=== PATIENT | female | born 1970 | race Caucasian/White ===

== ENCOUNTER 2022-12-18 12:06 | Outpatient (OUT) | payer BC, SELFPAY ==
[2022-12-18 13:11] LABS: Alanine Aminotransferase 47 U/L (14-59); Alkaline Phosphatase 101 U/L (46-116); Aspartate Amino Transferase 28 U/L (15-37)
== END 2022-12-18 12:07 | disposition home or self-care (01) ==
LOC: LAB 12:11
PROVIDERS: PCP Nurse Practitioner; Visit Provider Podiatrist Foot & Ankle Surgery
DX: B35.1 Tinea unguium (principal)
CPT/HCPCS: 36415; 84075; 84450; 84460

== ENCOUNTER 2022-12-26 10:55 | Outpatient (OUT) | payer BC, SELFPAY ==
--- NOTE | 2022-12-26 | XR_ITS ---
[address] [address] Patient Name: MICHELLE BADILLO MRN: [id number] date: 1970 Sex: F Assigned Patient Location: [facility] Current Patient Location: Accession/Order Number: [id number] Exam Date: 12/26/2022 11:00 Report Date: 12/28/2022 06:45 At the request of: ANAND KRUEGER Procedure: XR abdomen 1V EXAMINATION: XR abdomen 1V HISTORY: KIDNEY STONE COMPARISON: 07/29/2022 FINDINGS: KIDNEY/URETER - RIGHT: No visible renal or ureteral calcifications. KIDNEY/URETER - LEFT: No visible renal or ureteral calcifications. PELVIS: No visible ureteral calcifications. Any visible calcifications favor phleboliths. BOWEL: No abnormal dilation or deviation. Residual BONES: No acute abnormality. OTHER: Negative. No abnormal gaseous collections. XR/XR abdomen 1V IMPRESSION: No urinary tract calculi identified Electronically authenticated by: LUIS M SOLOMON Date: 12/28/2022 06:45
== END 2022-12-26 10:56 | disposition home or self-care (01) ==
PROVIDERS: PCP Nurse Practitioner; Visit Provider Urology
DX: N20.0 Calculus of kidney (principal)
CPT/HCPCS: 74018

== ENCOUNTER 2023-02-02 19:59 | Outpatient (OUT) | payer BC, SELFPAY | END 2023-02-02 20:00 | disposition home or self-care (01) | LOC: SLEEP 20:00 | PROVIDERS: PCP Nurse Practitioner Adult Health; Visit Provider Nurse Practitioner Adult Health | DX: G47.33 Obstructive sleep apnea (adult) (pediatric) (principal) | CPT/HCPCS: 95810 ==

== ENCOUNTER 2023-06-29 17:40 | Observation (INO) | payer BC, SELFPAY ==
[2023-06-29] VITALS (41 sets, daily range): BP systolic 111–162; BP diastolic 70–108; PULSE 67–93; TEMP 36.3–36.8; O2SAT 95–100; BMI 32.3; BMI 35.1
--- NOTE | 2023-06-29 17:55 | XR_ITS ---
The [address] [address] Patient Name: MICHELLE BADILLO MRN: [id number] date: 1970 Sex: F Assigned Patient Location: ER Current Patient Location: ER Accession/Order Number: [id number] Exam Date: 06/29/2023 18:27 Report Date: 06/29/2023 19:14 At the request of: DURAN MORALES Procedure: XR chest 1V EXAM: XR chest 1V at 1822 hours HISTORY: Chest pain COMPARISON: 10/28/2020 TECHNIQUE: AP upright portable chest x-ray FINDINGS: The heart is not enlarged and the vasculature is not distended. No acute infiltrate, effusion or pneumothorax is identified. The osseous structures are grossly intact. XR/XR chest 1V IMPRESSION: No acute infiltrate or evidence of cardiac decompensation. The overall appearance of the chest is essentially unchanged. Electronically authenticated by: CHAVA GARCIA Date: 06/29/2023 19:14
--- NOTE | 2023-06-29 17:55 | ECG_ITS ---
The [facility] Test Date: 2023-06-29 Pat Name: MICHELLE BADILLO Department: Room: - Gender: Female [employer]: : 1970 Requested By: PRICILLA DALEY Order Number: [id number] Reading MD: FREDDY RADFORD Measurements Intervals [place] Rate: 81 P: 38 [place]: 152 QRS: 24 QRSD: 76 T: 19 QT: 358 QTc: 395 Interpretive Statements 1100 Sinus rhythm 8102 Low QRS voltage in chest leads 9120 atypical ECG Compared to ECG 06/29/2022 13:32:25 No significant changes Electronically Signed On 06-29-2023 23:14:03 EDT by FREDDY RADFORD
--- NOTE | 2023-06-29 18:06 | ED.CHESTPAI1 ---
HPI - Chest Pain General Chief Complaint: Chest Pain Stated Complaint: chest pain Time Seen by Provider: 06/29/23 17:55 Source: patient Mode of arrival: walk-in Limitations: no limitations History of Present Illness HPI narrative: 53-year-old female presents for chest pain. She had an episode 3 days ago that lasted for about 15 minutes and it was in the middle part of her sternum. It went away and did not recurrent until today about 3 PM. The patient states it lasted for about 15 minutes and it was again in the middle part of her sternal area that went straight through to her back. It seems to have resolved. She was worried about heart issues. Her father had a heart attack in his 50s. Related Data Home Medications ?Medication ?Instructions ?Recorded ?Confirmed pantoprazole 20 mg tablet,delayed 20 mg PO Q12H 06/29/23 06/29/23 release zonisamide 25 mg capsule 25 mg PO Q12H 06/29/23 06/29/23 Allergies Allergy/AdvReac Type Severity Reaction Status Date / Time Penicillins AdvReac Severe Verified 06/29/23 17:54 Review of Systems ROS Narrative A ten point review of systems is negative except as noted above. Exam Narrative Exam Narrative: Nurses note and vital signs reviewed and patient is not hypoxic. General: The patient appears well and in no apparent distress. Patient is resting comfortably on cart. Skin: Warm, dry, no pallor noted. There is no rash noted. Head: Normocephalic, atraumatic Eye: Normal conjunctiva, no drainage Ears, Nose, Mouth, and Throat: oral mucosa is moist. Nares patent. Cardiovascular: Regular Rate and Rhythm Respiratory: Patient is in no distress, no accessory muscle use, lungs are clear to auscultation, no wheezing, rales or rhonchi Back: non-tender GI: Soft and nontender Musculoskeletal: The patient has no evidence of calf tenderness, no pitting edema, symmetrical pulses noted bilaterally Neurological: A&O, normal speech Psychiatric: Cooperative Constitutional Vital Signs, click to edit/add: Last Vital Signs Temp 98.2 F 06/29/23 17:49 Pulse 93 H 06/29/23 17:49 Resp 18 06/29/23 17:49 BP 150/108 H 06/29/23 17:49 Pulse Ox 100 06/29/23 17:49 O2 Del Method Room Air 06/29/23 17:49 Course Vital Signs Vital signs: Vital Signs Temperature 98.2 F 06/29/23 17:49 Pulse Rate 93 H 06/29/23 17:49 Respiratory Rate 18 06/29/23 17:49 Blood Pressure 150/108 H 06/29/23 17:49 Pulse Oximetry 100 06/29/23 17:49 Oxygen Delivery Method Room Air 06/29/23 17:49 Temperature 98.2 F 06/29/23 17:49 Pulse Rate 93 H 06/29/23 17:49 Respiratory Rate 18 06/29/23 17:49 Blood Pressure 150/108 H 06/29/23 17:49 Pulse Oximetry 100 06/29/23 17:49 Oxygen Delivery Method Room Air 06/29/23 17:49 MDM - Chest Pain MDM Narrative Medical decision making narrative: Tests are ordered and the patient is signed out to Dr. Velasquez. Differential Diagnosis Differential diagnosis: Likely atypical chest pain, st elevation myocardial infarction, costochondritis and chest pain ECG Data Attestation: I personally reviewed and interpreted this ECG as follows: (EKG on my interpretation shows normal sinus rhythm without acute change and a rate of 81.) Discharge Plan Discharge Patient Disposition: Still a Patient
[2023-06-29] MEDS: ASPIRIN 325 MG TABLET PO (18:31)
--- NOTE | 2023-06-29 18:31 | PC.NURSE ---
Pt explains that the last time she had this chest pain she ended up having a blockage in her common bile duct in 2018 and had gotten an ERCP. She has since had her gall bladder removed as well.
[2023-06-29 18:32] LABS: Basophils Percent Auto 0.3 % (0.2-2.0); Eosinophils Absolute Auto 0.2 10^3/uL (0.0-0.7); Eosinophils Percent Auto 2.6 % (0.9-7.0); Hematocrit 40.4 % (36.0-48.0); Hemoglobin 13.3 g/dL (12.0-16.0); Immature Granulocytes Abs Auto 0.01 10^3/uL (0.00-0.03); Immature Granulocytes Pct Auto 0.1 % (0.0-0.5); Lymphocytes Absolute Auto 2.2 10^3/uL (1.2-3.8); Lymphocytes Percent Auto 32.4 % (20.5-60.0); Mean Corpuscular HGB Conc 32.9 g/dL (29.9-35.2); Mean Corpuscular Hemoglobin 28.3 pg (26.7-34.0); Mean Platelet Volume 9.4 fL (9.5-13.5); Monocytes Absolute Auto 0.4 10^3/uL (0.3-0.8); Monocytes Percent Auto 5.2 % (1.7-12.0); Neutrophils Absolute Auto 4.1 10^3/uL (1.4-6.5); Neutrophils Percent Auto 59.4 % (43.0-75.0); Platelet Count 283 10^3/uL (150-450); Red Cell Distribution Width 12.6 % (11.0-15.0); White Blood Count 6.9 10^3/uL (4.0-11.0)
[2023-06-29 18:42] LABS: INR 0.94
[2023-06-29 18:44] LABS: Alanine Aminotransferase 40 U/L (14-59); Albumin Level 3.7 g/dL (3.4-5.0); Alkaline Phosphatase 109 U/L (46-116); Anion Gap 15.8; Aspartate Amino Transferase 21 U/L (15-37); BUN Creatinine Ratio 15.4; Bilirubin Total 0.3 mg/dL (0.2-1.0); Calcium 9.4 mg/dL (8.5-10.1); Chloride 104 mmol/L (98-107); Estimated GFR (African America 59 (>=60); Estimated GFR (Non-African Ame 49 (>=60); Globulin 3.8 g/dL; Glucose 95 mg/dL (74-106); Potassium 3.8 mmol/L (3.5-5.1); Sodium 141 mmol/L (136-145); Total Protein 7.5 g/dL (6.4-8.2)
[2023-06-29 18:49] LABS: Lactate/Lactic Acid 0.9 mmol/L (0.4-2.0)
[2023-06-29 19:23] LABS: Bilirubin Direct 0.1 mg/dL (0.0-0.2); Bilirubin Total 0.3 mg/dL (0.2-1.0)
[2023-06-29 19:24] LABS: Alanine Aminotransferase 38 U/L (14-59); Albumin Globulin Ratio 1.1; Albumin Level 3.8 g/dL (3.4-5.0); Alkaline Phosphatase 111 U/L (46-116); Amylase 72 U/L (25-115); Aspartate Amino Transferase 20 U/L (15-37); Globulin 3.6 g/dL; Total Protein 7.4 g/dL (6.4-8.2)
[2023-06-29 21:14] LABS: Troponin I High Sensitivity 4.2 pg/mL (4.0-51.3)
--- OUTSIDE RECORDS SUMMARY | 2023-06-29 23:29 | XMS_ITS | CCD ---
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 Name Role Phone Larry DO Luis M Montano Attending Provider [phone] NON STAFF Primary Care Provider Unavaildina e NON STAFF Primary Care Provider Unavaildina e TISHA Pace- Rose Attending Provider MD Anand Lopez Attending Provider AICHHOLZ, KAMILLA J Primary Care Physician PATI ., DR MICHEL Attending Unavailable LOPEZ ., DR MICHEL Consulting Unavailable AICHHOLZ, ELECTRICAL SIGN WIRER HELPER KAMILLA Primary Care Unavailable LOPEZ ., DR MICHEL Admitting Unavailable GALVEZ, IZZY Consulting Unavailable LOPEZ ., DR MICHEL Consulting Unavailable AICHHOLZ, ELECTRICAL SIGN WIRER HELPER KAMILLA Primary Care Unavailable LOPEZ ., DR MICHEL Admitting Unavailable LOPEZ ., DR MICHEL Attending Unavailable ZIEBER, DR JERICA Fonseca Consulting Unavailable VICTORINO, KYLE Consulting Unavailable MARY ANN II, GEOVANNI Consulting Unavailable LOPEZ ., DR MICHEL Attending Unavailable AICHHOLZ, ELECTRICAL SIGN WIRER HELPER KAMLILA Primary Care Unavailable LOPEZ ., DR MICHEL Admitting Unavailable AICHHOLZ, ELECTRICAL SIGN WIRER HELPER KAMILLA Admitting Unavailable AICHHOLZ, ELECTRICAL SIGN WIRER HELPER KAMILLA Attending Unavailable AICHHOLZ, ELECTRICAL SIGN WIRER HELPER KAMILLA Consulting Unavailable AICHHOLZ, ELECTRICAL SIGN WIRER HELPER KAMILLA Primary Care Unavailable ZIEBER, DR JERICA Fonseca Consulting Unavailable AICHHOLZ, ELECTRICAL SIGN WIRER HELPER KAMILLA Admitting Unavailable AICHHOLZ, ELECTRICAL SIGN WIRER HELPER KAMILLA Attending Unavailable AICHHOLZ, ELECTRICAL SIGN WIRER HELPER KAMILLA Consulting Unavailable AICHHOLZ, ELECTRICAL SIGN WIRER HELPER KAMILLA Primary Care Unavailable FAWWAD, STEELE H Admitting Unavailable FAWWAD, STEELE H Attending Unavailable FAWWAD, STEELE H Consulting Unavailable AICHHOLZ, ELECTRICAL SIGN WIRER HELPER KAMILLA Primary Care Unavailable LOPEZ ., DR MICHEL Attending Unavailable LOPEZ ., DR MICHEL Consulting Unavailable AICHHOLZ, ELECTRICAL SIGN WIRER HELPER KAMILLA Primary Care Unavailable LOPEZ ., DR MICHEL Admitting Unavailable ZIEBER, DR JERICA Fonseca Consulting Unavailable AICHHOLZ, ELECTRICAL SIGN WIRER HELPER KAMILLA Primary Care Unavailable AICHHOLZ, ELECTRICAL SIGN WIRER HELPER KAMILLA Admitting Unavailable AICHHOLZ, ELECTRICAL SIGN WIRER HELPER KAMILLA Attending Unavailable AICHHOLZ, ELECTRICAL SIGN WIRER HELPER KAMILLA Consulting Unavailable LOPEZ ., DR MICHEL Admitting Unavailable LOPEZ ., DR MICHEL Consulting Unavailable AICHHOLZ, ELECTRICAL SIGN WIRER HELPER KAMILLA Primary Care Unavailable LOPEZ ., DR MICHEL Attending Unavailable WEST, DR LUIS M Bustos Consulting Unavailable AICHHOLZ, ELECTRICAL SIGN WIRER HELPER KAMILLA Primary Care Unavailable WEST, DR LUIS M Bustos Consulting Unavailable AICHHOLZ, ELECTRICAL SIGN WIRER HELPER KAMILLA Admitting Unavailable AICHHOLZ, ELECTRICAL SIGN WIRER HELPER KAMILLA Attending Unavailable AICHHOLZ, ELECTRICAL SIGN WIRER HELPER KAMILLA Consulting Unavailable LOPEZ ., DR MICHEL Consulting Unavailable AICHHOLZ, ELECTRICAL SIGN WIRER HELPER KAMILLA Primary Care Unavailable LOPEZ ., DR MICHEL Admitting Unavailable LOPEZ ., DR MICHEL Attending Unavailable NO FAMILY, PHYSICIAN Primary Care Provider Unava ilable MD Rishi Imshawn Attending Provider Windnagel, Rose Admitting Unavailable Windnagel, Rose Attending Unavailable NON STAFF Primary Care Unavailable Anand Lopez Admitting Unavailable Anand Lopez Attending Unavailable NO FAMILY, PHYSICIAN Primary Care Unavailable Asaad, Imad Attending Unavailable NO FAMILY, PHYSICIAN Primary Care Unavailable Asaad, Imad Admitting Unavailable Asaad, Imad Attending Unavailable Aichholz, Kamilla J Primary Care Unavailable Asaad, Imad Admitting Unavailable Aichholz, Kamilla J Primary Care Provider Anand LOPEZ Attending Unavailable Anand LOPEZ Attending Unavailable Anand LOPEZ Attending Unavailable Windnagel, Rose Admitting Unavailable Windnagel, Rose Attending Unavailable Windnagel, Rose Referring Unavailable LOPEZAnand R Attending Unavailable Anand LOPEZ R Attending Unavailable ISABELLE BARRIOS Referring Unavailable SOPHIEISABELLE Primary Care Unavailable Aichholz PRODUCTION SUPPORT CONSULTANT, Kamilla Unavailable Nishant Aguilar MD Primary Care Provider AICHHOLZ, KAMILLA Attending Unavailable ZONIA PAK Attending Unavailable AICHHOLZ, KAMILLA Attending Unavailable James FU, Kristine Patten Attending Phyllis yanet Ramirez PA-C, Kristine Patten Attending [facility] Allergies Allergy Classification Reported Allergen(s) Allergy Type Date of Onset Reaction(s) Facility (11 sources) Penicillins; Translations: [Penicillins] Allergy to substance 07-14-2017 [facility] (5 sources) Penicillin; Translations: [penicillin] Drug Allergy Unknown [facility] Medications Current Medications Medication Drug Class(es) Dates Sig (Normalized) Sig (Original) Acidophilus Probiotic Blend (3 sources) Start: 06-22-2022 Acidophilus Probiotic Blend Oral, Daily, Refill(s) 0 Start Date: 06/22/22 Status: Ordered amitriptyline hydrochloride 25 mg oral tablet (12 sources) Tricyclic Antidepressant Start: 09-28-2022 take 25 mg by mouth once daily Amitriptyline Active 25 MG PO Daily September 28, 2022 12:00am Start: 08-15-2021 End: 09-28-2022 amitriptyline 10 mg Tab Refi lls(s) 0 Start Date: 06/22/22 Status: Ordered Ascorbic Acid (3 sources) Vitamin C Start: 06-22-2022 Vitamin C Daily, Refills(s) 0 Start Date: 06/22/22 Status: Ordered Cranberry preparation (3 sources) Non-Standardized Food Allergenic Extract, Non-Standardized Plant Allergenic Extract Start: 06-22-2022 Cranberry Refill(s) 0 Start Date: 06/22/22 Status: Ordered famotidine 20 mg oral tablet (2 sources) Histamine-2 Receptor Antagonist Start: 12-28-2022 famotidine 20 mg Tab Refills(s) 0 Start Date: 12/28/22 Status: Ordered Melatonin (3 sources) Start: 06-22-2022 Melatonin Once a day (at bedtime), Refills(s) 0 Start Date: 06/22/22 Status: Ordered Multivitamin preparation (3 sources) Start: 06-22-2022 multivitamin Daily, Refill(s) 0 Start Date: 06/22/22 Status: Ordered Craig-3 oral capsule (3 sources) Start: 06-22-2022 Craig-3 oral capsule Refill(s) 0 Start Date: 06/22/22 Status: Ordered pantoprazole 20 mg delayed release oral tablet (13 sources) Proton Pump Inhibitor Start: 03-18-2023 End: 05-28-2023 take 1 tablet by mouth in the morning pantoprazole (ProtoNix) 20 MG EC tablet Indications: Gastroesophageal reflux disease without esophagitis Take 1 tablet (20 mg) by mouth in the morning and 1 tablet (20 mg) before bedtime. 60 tablet 1 04/28/2023 05/28/2023 Active Start: 09-28-2022 take 20 mg by mouth twice daily Pantoprazole Active 20 MG PO Twice daily September 28, 2022 12:00am Start: 08-15-2021 End: 09-28-[address] Tab Re fills(s) 0 Start Date: 06/22/22 Status: Ordered terbinafine 250 mg oral tablet (2 sources) Allylamine Antifungal Start: 12-28-2022 terbinafine 250 mg Tab Refills(s) 0 Start Date: 12/28/22 Status: Ordered traZODone hydrochloride 50 mg oral tablet (1 source) Serotonin Reuptake Inhibitor Start: 06-22-2022 traZODONE 50 mg Tab Refills(s) 0 Start Date: 06/22/22 Status: Ordered Viactiv Soft Calcium Chews (3 sources) Start: 06-22-2022 Viactiv Soft Calcium Chews Refill(s) 0 Start Date: 06/22/22 Status: Ordered zonisamide 50 mg oral capsule (9 sources) Anti-epileptic Agent Start: 12-12-2022 take 1 capsule by mouth in the morning zonisamide (Zonegran) 50 MG capsule Take 50 mg by mouth in the morning and 50 mg before bedtime. 0 12/12/2022 Active Start: 11-23-2022 take 1 capsule by mo ut twice daily zonisamide (Zonegran) 25 MG capsule TAKE 1 CAPSULE BY MOUTH TWICE DAILY WITH 50 MG CAPS TO EQUAL 75 MG 0 11/23/2022 Active Start: 09-28-2022 take 50 mg by mouth twice imelda y Zonisamide Active 50 MG PO Twice daily September 28, 2022 12:00am Problems Active Problems Problem Classification Problem Date Documented Date Episodic/Chronic Abdominal pain (8 sources) Left flank pain; Translations: [Unspecified abdominal pain] Onset: 06-03-2022 06-22-2022 Episodic Asthma (4 sources) Asthma; Translations: [Unspecified asthma, uncomplicated] Onset: 08-10-2022 06-22-2022 Chronic Biliary tract disease (3 sources) Gallstone 06-22-2022 Episodic Calculus of urinary tract (10 sources) Kidney stone; Translations: [Calculus of kidney] Onset: 07-29-2022 06-22-2022 Episodic Esophageal disorders (14 sources) Gastroesophageal reflux disease; Translations: [Gastro-esophageal reflux disease without esophagitis] Onset: 09-29-2017 08-15-2021 Chronic Esophageal disorders (1 source) Esophageal disorders; Translations: [Gastro-esophageal reflux disease without esophagitis] Onset: 08-31-2022 Mycoses (2 sources) Onychomycosis; Translations: [Tinea unguium] 04-20-2023 Episodic Nonspecific chest pain (1 source) Chest pain, unspecified; Translations: [CHEST PAIN UNSPECIFIED] Onset: 07-12-2022 Episodic Osteoarthritis (4 sources) Arthritis; Translations: [Unspecified osteoarthritis, unspecified site] Onset: 08-10-2022 06-22-2022 Chronic Other connective tissue disease (1 source) Pain in unspecified lower leg; Translations: [PAIN IN UNSPECIFIED LOWER LEG] Onset: 07-12-2022 Episodic Other connective tissue disease (2 sources) Pain of toes of bilateral feet; Translations: [Pain in right toe(s)] 04-20-2023 Episodic Other nervous system disorders (5 sources) Paresthesia of skin; Translations: [PARESTHESIA OF SKIN] Onset: 07-08-2022 Episodic Other nutritional; endocrine; and metabolic disorders (3 sources) Body mass index 30+ - obesity; Translations: [Body mass index (BMI) 32.0-32.9, adult] Onset: 03-18-2023 03-18-2023 Chronic Other screening for suspected conditions (not mental disorders or infectious disease) (10 sources) Patient encounter status; Translations: [Encounter for screening for malignant neoplasm of colon] Onset: 06-16-2022 08-15-2021 Episodic Other skin disorders (2 sources) Dystrophia unguium; Translations: [Nail dystrophy] 04-20-2023 Episodic Residual codes; unclassified (1 source) Idiopathic sleep related nonobstructive alveolar hypoventilation; Translations: [Idiopathic sleep related nonobstructive alveolar hypoventilation] Onset: 04-06-2023 Chronic Residual codes; unclassified (1 source) Family history of malignant neoplasm of breast; Translations: [FAMILY HX MALIG NEOPLASM OF BREAST] Onset: 06-20-2022 Episodic Unclassified (3 sources) CONTACT W/AND (SUSP) EXPOS COVID-19; Translations: [CONTACT W/AND (SUSP) EXPOS COVID-19] Onset: 12-25-2021 Past or Other Problems Problem Classification Problem Date Documented Da te Episodic/Chronic Other upper respiratory infections (1 source) Acute upper respiratory infection, unspecified; Translations: [ACUTE UP RESPIRATORY INFECTION UNS] Onset: 12-25-2021 Episodic Pancreatic disorders (not diabetes) (3 sources) Pancreatitis; Translations: [Acute pancreatitis without necrosis or infection, unspecified] Onset: 09-26-2017 12-18-2022 Episodic Unclassified (1 source) CONTACT W/AND (SUSP) EXPOS COVID-19; Translations: [CONTACT W/AND (SUSP) EXPOS COVID-19] Onset: 12-22-2021 Results Test Name Value Interpretation Reference Range Facility Neurology Forms- Texton 12-0 Neurology Forms- Text [id number] [facility] Consent for Treatmenton 11-0 Consent for Treatment [id number] Normal [facility] Ambulatory Visit Summaryon 1 Ambulatory Visit Summary CINTHIA BADILLO :1970 Visit Date:12/28/2022 Ambulatory Visit Instructions Your Diagnosis Kidney stone Tests Performed Urnls Dip Stick Auto w/o Microscopy POC 04720 XR Abdomen 1 View -- Results Pending -- Please visit your patient portal for your results or contact your primary care physician. Your Care Team Attending Physician - PATI DOHERTY, Anand Fonseca Primary Care Physician - KAMILLA PATTON CNP This Is Your Medications List Contact prescribing physician if questions or concerns amitriptyline (amitriptyline 10 mg Tab) ascorbic acid (Vitamin C) cranberry (Cranberry) famotidine (famotidine 20 mg Tab) lactobacillus acidophilus (Acidophilus Probiotic Blend) melatonin (Melatonin) multivitamin multivitamin with minerals (Viactiv Soft Calcium Chews) omega-3 polyunsaturated fatty acids (Craig-3 oral capsule) pantoprazole (Pantoprazole [address] Tab) terbinafine (terbinafine 250 mg Tab) zonisamide (zonisamide 25 mg Cap) Procedures Performed Rigid cystoscopy (08/13/2022), ESWL of kidney (07/02/2022), Cholecystectomy, Hysterectomy. Discharge Vitals Heart Rate (Peripheral) 80 Respiratory Rate 16 Blood Pressure 121/86 Height 165 cm Height 65 in Weight 91.6 kg Weight 201.52 lb BMI 33.65 What to do next You Need to Schedule the Following Appointments Follow Up with PATI DOHERTY, NICHELLE Sanabria When: In 1 year Comments: w/KUEirca Where: [facility] [address], [place] [address]- Medications What How Much When Instructions Unchanged amitriptyline (amitriptyline 10 mg Tab) Contact prescribing physician if questions or concerns Unchanged ascorbic acid (Vitamin C) Every day Contact prescribing physician if questions or concerns Unchanged cranberry (Cranberry) Contact prescribing physician if questions or concerns Unchanged famotidine (famotidine 20 mg Tab) Contact prescribing physician if questions or concerns Unchanged lactobacillus acidophilus (Acidophilus Probiotic Blend) Every day Contact prescribing physician if questions or concerns Unchanged melatonin (Melatonin) Once a day (at bedtime) Contact prescribing physician if questions or concerns Unchanged multivitamin Every day Contact prescribing physician if questions or concerns Unchanged multivitamin with minerals (Viactiv Soft Calcium Chews) Contact prescribing physician if questions or concerns Unchanged omega-3 polyunsaturated fatty acids (Craig-3 oral capsule) Contact prescribing physician if questions or concerns Unchanged pantoprazole (Pantoprazole [address] Tab) Contact prescribing physician if questions or concerns Unchanged terbinafine (terbinafine 250 mg Tab) Contact prescribing physician if questions or concerns Unchanged zonisamide (zonisamide 25 mg Cap) Contact prescribing physician if questions or concerns Test Results Urnls Dip Stick Auto w/o Microscopy POC 40899 (12/28/2022) Bilirubin Urine Dipstick - Negative Blood Urine Dipstick - Trace-intact Glucose Urine Dipstick - Negative Ketones Urine Dipstick - Negative Leukocytes Urine Dipstick - Negative Nitrite Urine Dipstick - Negative Protein Urine Dipstick - Negative Specific [place] Urine Dipstick - 1.020 Urine Appearance Urine Dipstick - Clear Urine Color Urine Dipstick - Yellow Urobilinogen Urine Dipstick - Normal 0.2-1 EU/dl pH Urine Dipstick - 6.5 Allergies penicillin (Unknown) Problems Ongoing - Any problem that you are currently receiving treatment for. Arthritis Asthma Gallstones Gastroesophageal reflux disease Kidney stone Left flank pain Education Materials Dietary Guidelines to Help Prevent Kidney Stones Kidney stones are deposits of minerals and salts that form inside your kidneys. Your risk of developing kidney stones may be greater depending on your diet, your lifestyle, the medicines you take, and whether you have certain medical conditions. Most people can lower their chances of developing kidney stones by following the instructions below. Your dietitian may give you more specific instructions depending on your overall health and the type of kidney stones you tend to develop. What are tips for following this plan? Reading food labels ? Choose foods with no salt added or low-salt labels. Limit your salt (sodium) intake to less than 1,500 mg a day. ? Choose foods with calcium for each meal and snack. Try to eat about 300 mg of calcium at each meal. Foods that contain 200?500 mg of calcium a serving include: ? 8 oz (237 mL) of milk, qdrrkjq-crkutbrgvoyr-fcbfa milk, and calcium-fortifiedfruit juice. Calcium-fortified means that calcium has been added to these drinks. ? 8 oz (237 mL) of kefir, yogurt, and soy yogurt. ? 4 oz (114 g) of tofu. ? 1 oz (28 g) of cheese. ? 1 cup (150 g) of dried figs. ? 1 cup (91 g) of cooked broccoli. ? One 3 oz (85 g) can of sardines or mackerel. Most people need 1, (more content not included)... Normal [facility] Patient Educationon 12-29-19 Patient Education Nephrology Dietary Guidelines to Help Prevent Kidney Stones Kidney stones are deposits of minerals and salts that form inside your kidneys. Your risk of developing kidney stones may be greater depending on your diet, your lifestyle, the medicines you take, and whether you have certain medical conditions. Most people can lower their chances of developing kidney stones by following the instructions below. Your dietitian may give you more specific instructions depending on your overall health and the type of kidney stones you tend to develop. What are tips for following this plan? Reading food labels ? Choose foods with no salt added or low-salt labels. Limit your salt (sodium) intake to less than 1,500 mg a day. ? Choose foods with calcium for each meal and snack. Try to eat about 300 mg of calcium at each meal. Foods that contain 200?500 mg of calcium a serving include: ? 8 oz (237 mL) of milk, xsdsbrm-bdeqpkyuddco-cowhc milk, and calcium-fortifiedfruit juice. Calcium-fortified means that calcium has been added to these drinks. ? 8 oz (237 mL) of kefir, yogurt, and soy yogurt. ? 4 oz (114 g) of tofu. ? 1 oz (28 g) of cheese. ? 1 cup (150 g) of dried figs. ? 1 cup (91 g) of cooked broccoli. ? One 3 oz (85 g) can of sardines or mackerel. Most people need 1,000?1,500 mg of calcium a day. Talk to your dietitian about how much calcium is recommended for you. Shopping ? Buy plenty of fresh fruits and vegetables. Most people do not need to avoid fruits and vegetables, even if these foods contain nutrients that may contribute to kidney stones. ? When shopping for convenience foods, choose: ? Whole pieces of fruit. ? Pre-made salads with dressing on the side. ? Low-fat fruit and yogurt smoothies. ? Avoid buying frozen meals or prepared deli foods. These can be high in sodium. ? Look for foods with live cultures, such as yogurt and kefir. ? Choose high-fiber grains, such as whole-wheat breads, oat bran, and wheat cereals. Cooking ? Do not add salt to food when cooking. Place a salt shaker on the table and allow each person to add his or her own salt to taste. ? Use vegetable protein, such as beans, textured vegetable protein (TVP), or tofu, instead of meat in pasta, casseroles, and soups. Meal planning ? Eat less salt, if told by your dietitian. To do this: ? Avoid eating processed or pre-made food. ? Avoid eating fast food. ? Eat less animal protein, including cheese, meat, poultry, or fish, if told by your dietitian. To do this: ? Limit the number of times you have meat, poultry, fish, or cheese each week. Eat a diet free of meat at least 2 days a week. ? Eat only one serving each day of meat, poultry, fish, or seafood. ? When you prepare animal protein, cut pieces into small portion sizes. For most meat and fish, one serving is about the size of the palm of your hand. ? Eat at least five servings of fresh fruits and vegetables each day. To do this: ? Keep fruits and vegetables on hand for snacks. ? Eat one piece of fruit or a handful of berries with breakfast. ? Have a salad and fruit at lunch. ? Have two kinds of vegetables at dinner. ? Limit foods that are high in a substance called oxalate. These include: ? Spinach (cooked), rhubarb, beets, sweet potatoes, and [place]une[place] chard. ? Peanuts. ? Potato chips, singaporean fries, and baked potatoes with skin on. ? Nuts and nut products. ? Chocolate. ? If you regularly take a diuretic medicine, make sure to eat at least 1 or 2 servings of fruits or vegetables that are high in potassium each day. These include: ? Avocado. ? Banana. ? [place], prune, carrot, or tomato juice. ? Baked potato. ? Cabbage. ? Beans and split peas. Lifestyle ? Drink enough fluid to keep your urine pale yellow. This is the most important thing you can do. Spread your fluid intake throughout the day. ? If you drink alcohol: ? Limit how much you use to: ? 0?1 drink a day for women who are not . ? 0?2 drinks a day for men. ? Be aware of how much alcohol is in your drink. In the [place] one drink equals one 12 oz bottle of beer (355 mL), one 5 oz glass of wine (148 mL), or one 1? oz glass of hard liquor (44 mL). ? Lose weight if told by your health care provider. Work with your dietitian to find an eating plan and weight loss strategies that work best for you. General information ? Talk to your health care provider and dietitian about taking daily supplements. You may be told the following depending on your health and the cause of your kidney stones: ? Not to take supplements with vitamin C. ? To take a calcium supplement. ? To take a daily probiotic supplement. ? To take other supplements such as magnesium, fish oil, or vitamin B6. ? Take txbb-gcy-xwcszuw and prescription medicines only as told by your health care provider. These include supplements. What foods should I limit? Limit your in (more content not included)... Normal [facility] RAD - MISCon 12-28-2022 RAD - MIS [id number] Normal [facility] Urology Office/Clinic Noteon 12-28-2022 Urology Office/Clinic Note Chief Complaint kidney stone HPI Staff 52 yo female here for 6 month f/u with KUB. Previous Dx: kidney stone, L flank pain. S/p L ESWL 07/02/22 and Cysto/L URS/L stone basket extraction 08/13/22. KUB done 07/29/22 at [facility]. Stone analysis done 07/06/22 and 08/14/22. Dysuria: no Incomplete bladder emptying: no Hematuria: no Frequency: no Urgency: no Nocturia: 0-2x Stream: good steady Leaking: no Post void dripping: no Wearing pads/ Depends: no Urge incontinence: no Stress incontinence: no Incontinence without Sensory Awareness: no Abdominal pain: no Flank pain: right sided off and on achiness for about a month now Sexual complaints: no History of Present Illness Tests reviewed: reviewed UA, Stone Analysis, and KUB. I have reviewed the previous health record information and history for this patient from . I have reviewed and verified the staff HPI to be accurate for this encounter. There have been no associated fever, chills, flank pain, or blood in the urine. Denies any urinary infections since last encounter. Review of Systems PHQ Score Initial Depression Screen Score: 0 ROS - Provider Constitutional: denies weight loss, denies hot flashes. Eyes: denies eye problems. Gastrointestinal: denies nausea, denies vomiting. Cardiovascular: denies chest pain or angina. Integumentary: no dryness Musculoskeletal: denies musculoskeletal symptoms. ENMT: denies otolaryngeal symptoms. Respiratory: no shortness of breath. Heme/Lymph: denies easy bleeding tendency, denies easy bruising tendency. Psychiatric: no confusion, no anxiety. Genitourinary: See HPI. Physical Exam Vitals & Measurements HR: 80(Peripheral) RR: 16 BP: 121/86 HT: 65 in HT: 165 cm WT: 91.6 kg WT: 201.52 lb BMI: 33.65 General Appearance: alert , no acute distress, well nourished, well developed female. Genitourinary: bladder nonpalpable, no flank pain. Assessment/Plan 1. Kidney stone (N20.0: Calculus of kidney) CT AP w con 06/03/22 [facility] - Nonobstructing 7 mm left nephrolithiasis. KUB 06/20/22 [facility] - Left 9 mm stone. S/p L ESWL 07/02/22 Stone analysis done 07/06/22 - CaOx [place] 80% & CaOx [place]hy 20% KUB 07/29/22 - grossly stable Lt Nephrolithiasis S/p Cysto/L URS/L stone basket extraction 08/13/22 Stone Analysis 08/14/22 - CaOx [place] 90% & CaOx Dihy 10% KUB 12/26/22 - no stones noted. UA today negative for blood and infection. Has hx of bile duct stones, had CT scan. Denies hx of kidney stones. Pt states that she has started a new med that is for a separate health concern, that has a SE's of creating kidney stones. Advised pt that this SE's is very minimal. Pt states that she is experiencing right sided off and on achiness for about a month now. Advised pt that her stones are mostly made up of Monohydrate. Advised pt that in the future, if she were to get anymore stones, she should get LaserLitho due to ESWL not being as effected. Pt states that she takes a calcium supplement. Advised pt to continue taking this. Advised pt that the only thing that can cause her stones is not drinking enough fluids a day. Advised pt to try to increase her daily fluid intake, clear fluids. Pt states that she will try her best to do this. Discussed doing a metabolic workup in the future, if needed. Will continue to monitor. Follow up in 1 yr w/KUB. All questions/concerns were discussed. Pt to call the office if she encounters any issues prior. Pt acknowledges understanding. -Will order KUB -Increase Daily Fluid Intake Follow-up With When Contact Information Anand LOPEZ MD, NICHELLE In 1 year [facility] [address] [place] [address]- Additional Instructions: w/KUB Patient Education Dietary Guidelines to Help Prevent Kidney Stones I, Jaylene Baires , personally scribed for Dr. Lopez on 12/28/2022 16:05:22. . Documentation recorded by the scribeJaylene, accurately reflects the services(s) I performed and decisions made by me. Problem List/Past Medical History Ongoing Arthritis Asthma Gallstones Gastroesophageal reflux disease Kidney stone Left flank pain Historical No qualifying data Procedure/Surgical History Rigid cystoscopy (08/13/2022), ESWL of kidney (07/02/2022), Cholecystectomy, Hysterectomy. Medications Acidophilus Probiotic Blend, Oral, Daily amitriptyline 10 mg Tab Cranberry famotidine 20 mg Tab Melatonin, Once a day (at bedtime) multivitamin, Daily Craig-3 oral capsule Pantoprazole [address] Tab terbinafine 250 mg Tab Viactiv Soft Calcium Chews Vitamin C, Daily zonisamide 25 mg Cap Allergies penicillin (Unknown) Social History Tobacco Never (less than 100 in lifetime) Tobacco Use:. Never Smokeless Tobacco Use:., 06/22/2022 Family History Family history is negative Immunizations Vaccine Date Status Comments SARSCoV2 mRNA(nzluqlfzf-qaog-wliful) vac 10/09/2021 Boby (more content not included)... Normal [facility] Comment on above: Result Comment: Elec tronically Signed By: Anand LOPEZ MD\.br\Date and Time Signed: 12/28/22 16:09 EDT\.br\Electronically Co-Signed By: Jaylene Baires\.br\Date and Time Co-Signed: 12/28/22 16:05 EDT Physician Orderon 12-25-2022 Physician Order [id number] Normal [facility] Blu 09-30-2022 L ------- Specimen: [id number] Received: 09/30/22 Status: RAYMUNDO Stock Num: [id number] Spec Type: Surgical Subm Dr: Juani Blackwell MD Tissues: A Duodenum - Biopsy (DUODENUM BX) B GASTRIC FOR HP (GASTRIC) C Gastric Biopsy (GASTRIC POLYP) Procedures: HE/6, Gross/Micro L4/3, H PYLORI Age/ Patient Sex Location Account Attending Physician Cinthia Badillo 52/F [id number] Juani Blackwell MD SPEC NUM: [id number] RECD: 09/30/22 STATUS: RAYMUNDO STOCK NUM: [id number] TETE: 09/30/22- [facility] DR: Juani Blackwell MD ENTERED: 09/30/[address] [facility] [address]: SPEC TYPE: Surgical DEPT: S ORDERED: HE/6, Gross/Micro L4/3, H PYLORI ORDERED: HE/6, Gross/Micro L4/3, H PYLORI Pathological Diagnosis A. Duodenum, biopsy: - Duodenal mucosa within normal limits B. Stomach, gastric, biopsy: - Gastric antral and fundic gland mucosa with reactive gastropathy - Negative for intestinal metaplasia or dysplasia - Negative for H. pylori (immunohistochemical stain) C. Stomach, gastric, polyp, biopsy: - Fragments of fundic gland polyp(s) - Negative for intestinal metaplasia or dysplasia - Negative for H. pylori (H E stained slides) Clinical Information Epigastric pain, rule out celiac, rule out H. pylori Specimen: [id number] Received: 09/30/22 Status: RAYMUNDO Stock Num: [id number] Spec Type: Surgical Subm Dr: Juani Blackwell MD Tissues: A Duodenum - Biopsy (DUODENUM BX) B GASTRIC FOR HP (GASTRIC) C Gastric Biopsy (GASTRIC POLYP) Procedures: HE/6, Gross/Micro L4/3, H PYLORI Patient: ChristianaCinthia Montano [id number] (Continued) Specimen: [id number] Received: 09/30/22 (Continued) Signed (signature on file) Justo Sher MD 10/01/22 1050 Specimen: [id number] Received: 09/30/22 Status: RAYMUNDO Stock Num: [id number] Spec Type: Surgical Subm Dr: Juani Blackwell MD Tissues: A Duodenum - Biopsy (DUODENUM BX) B GASTRIC FOR HP (GASTRIC) C Gastric Biopsy (GASTRIC POLYP) Procedures: HE/6, Gross/Micro L4/3, H PYLORI Patient: Cinthia Badillo [id number] (Continued) Specimen: [id number] Received: 09/30/22 (Continued) Gross Description A. Received in formalin labeled with the patient's name, date of and biopsy duodenum is one cash tissue measuring 0.4 x 0.2 x 0.2 cm. Entirely submitted in one cassette labeled A1. B. Received in formalin labeled with the patient's name, date of and gastric biopsy are two cash tissues averaging 0.4 x 0.2 x 0.2 cm. Entirely submitted in one cassette labeled B1. C. Received in formalin labeled with the patient's name, date of and gastric polyp are three cash tissues ranging from 0.1 cm to 0.4 x 0.4 x 0.3 cm. Entirely submitted in one cassette labeled C1. Microscopic Description A. Two H E slides reviewed. The microscopic examination confirms the diagnosis. B. Two H E slides reviewed. The microscopic examination confirms the diagnosis. C. Two H E slides reviewed. The microscopic examination confirms the diagnosis. CPT Codes 14537 x 3 Specimen: [id number] Received: 09/30/22 Status: RAYMUNDO Stock Num: [id number] Spec Type: Surgical Subm Dr: Juani Blackwell MD Tissues: A Duodenum - Biopsy (DUODENUM BX) B GASTRIC FOR HP (GASTRIC) C Gastric Biopsy (GASTRIC POLYP) Procedures: HE/6, Gross/Micro L4/3, H PYLORI Patient: Cinthia Badillo [id number] (Continued) Signed (signature on file) Justo Sher MD 10/01/22 1050 Normal [facility] Pathology Noteon 09-08-2022 Pathology Note [id number]#1.00CD:[address] [facility] NM gastric emptying studyon 08-31-2022 [place] [address] Nuclear Medicine Report Signed Patient: Cinthia Badillo MR#: [id number] : 1970 Acct:[id number] Age/Sex: 52 / F ADM Date: 08/31/22 Loc: NM Room: Type: [facility] Attending Dr: Juani Blackwell MD Copies to: MD Anabela Chin MD Ordering Provider: Juani Blackwell MD Date of Service: 08/31/22 NM/PA gastric emptying study: K21.9, R11.10 GASTRIC EMPTYING STUDY: CLINICAL HISTORY: Heartburn and vomiting. Following the oral ingestion of 1.1 mCi Tc 99m labeled sulfur colloid mixed with oatmeal, anterior imaging of the abdomen was performed out to 90 minutes. There is appropriate emptying of the stomach on the static and dynamic images. At the completion of, the stomach is almost empty. A time/activity curve was generated. The T 1/2 for gastric emptying is 25 minutes. Normal for semisolids is between 45 and 60 minutes. NM/NM gastric emptying study IMPRESSION: WITHIN NORMAL LIMITS. Impression dictated by: Anabela Greer M.D.08/31/2022 9:37 AM Dictation Location: [place] [address] Transcribed By: [facility] 08/31/22936 Dictated By: Anabela Greer MD 08/31/2236 Signed By: 08/31/22936 [facility] Lab Reportson 08-28-2022 Lab Reports [id number]#1.00CD:127 [facility] Provider Letteron 08-17-2022 Provider Letter (Inserted Image. Phyllis ble to display) August 17, 2022 CINTHIA BADILLO [address] [place] [address] : 1970 To Whom It May Concern, Cinthia Badillo 1970 Please excuse above patient from work. Date of Illness: From: 08/13/2022 To: 08/17/2022 May Return to Work On: 08/18/2022 Restrictions: No Restrictions Comments: _ Sincerely, Anand Lopez MD [facility] [address] [place] [id number] [place] [address] Operative Reporton 3 Operative Report [id number]#1.00CD:127 [facility] Ammonium urate crystals dete ction in stone by infrared spectroscopyOrdered By: Anand Lopez on 08-13-2022 Ammonium urate crystals Infrared spectroscopy Ql (Stone) N/A [facility] Calcium bilirubinate measure mentOrdered By: Anand Lopez on 08-13-2022 Calcium bilirubinate (Stone) [Mass fraction] N/A [facility] Calcium carbonate measuremen tOrdered By: Anand Lopez on 08-13-2022 Calcium carbonate (Stone) [Mass fraction] N/A [facility] Calcium hydrogen phosphate d ihydrate/Total in StoneOrdered By: Anand Lopez on 08-13-2022 Calcium hydrogen phosphate dihydrate (Stone) [Mass fraction] N/A [facility] Calcium oxalate dihydrate cr ystals detection in stone by infrared spectroscopyOrdered By: Anand Lopez on 08-13-2022 Calcium oxalate dihydrate crystals Infrared spectroscopy Ql (Stone) 10 % . [facility] Calcium oxalate monohydrate/ Total in StoneOrdered By: Anand Lopez on 08-13-2022 Calcium oxalate monohydrate (Stone) [Mass fraction] 90 % . [facility] Calcium phosphate measuremen tOrdered By: Anand Lopez on 08-13-2022 Calcium phosphate (Stone) [Mass fraction] N/A [facility] Calculi, Urinaryon Ca Oxalate Dihydrate 10 % Normal . [facility] Comment on above: Performed By: #### C ALCULI #### [facility] , Ca Oxalate Monohydrate 90 % Normal . [facility] Comment on above: Performed By: #### C ALCULI #### [facility] , Color (U) Brown Normal . [facility] Comment on above: Performed By: #### C ALCULI #### [facility] , Comment2 Normal . [facility] Comment on above: Result Comment: Calc ulus received wet. Wet calculi must be dried before analysis, which delays reporting of results. Leaving calculi wet (such as water, saline, blood, urine) may lead to changes in composition. Performed By: #### C ALCULI #### [facility] , Comment: Normal . [facility] Comment on above: Result Comment: Bhavana power questions regarding Calculi Analysis [facility] at: [phone]. Performed By: #### C ALCULI #### [facility] , Composition Normal . [facility] Comment on above: Result Comment: Perc entage (Represents the % composition) Performed By: #### C ALCULI #### [facility] , Disclaimer: Normal . [facility] Comment on above: Result Comment: This test was developed and its performance characteristics determined by [facility]. It has not been cleared or approved by the Food and Drug Administration. Performed at: [facility] - [address] [id number] Pipe Fitter: Mike Valladares PhD, Phone: [phone] Performed By: #### C ALCULI #### [facility] , Note Normal . [facility] Comment on above: Result Comment: Calc hannah report will follow via computer, mail or first aid officer delivery. PERFORMED BY: [facility] [address] [place] [address] PATHOLOGIST ASSEMBLY LINE MACHINE OPERATOR SOUTH PORTER M.D. Performed By: #### C ALCULI #### [facility] , Photo Normal . [facility] Comment on above: Result Comment: Phot ograph will follow under a separate cover Performed By: #### C ALCULI #### [facility] , Size 4x4 Normal . [facility] Comment on above: Result Comment: Mult iple pieces received. Dimensions of the largest piece reported. Performed By: #### C ALCULI #### [facility] , Source Normal . [facility] Comment on above: Result Comment: Left Kidney Performed By: #### C ALCULI #### [facility] , Weight 107 Normal . [facility] Comment on above: Performed By: #### C ALCULI #### [facility] , Calculus analysis interpreta tion in stoneOrdered By: Anand Lopez on 08-13-2022 Calculus analysis [Interp] N/A [facility] Calculus analysis [Interp] See comment . [facility] Comment on above: Calculus received we t. Wet calculi must be dried beforeanalysis, which delays reporting of results. Leaving calculiwet (such as water, saline, blood, urine) may lead tochanges in composition. Physician questions regarding Calculi [facility] at: [phone]. Calculi report will follow via computer, mail or courierdelivery. Calculus analysis with calcu sabrina photography interpretation in stoneOrdered By: Anand Lopez on 08-13-2022 Calculus analysis with calculus photography [Interp] See comment . [facility] Comment on above: Photograph will foll ow under a separate cover Cellular material measuremen t in stone by estimated (mass/mass)Ordered By: Anand Lopez on 08-13-2022 Cellular material Est (Stone) [Mass/Mass] N/A [facility] Cholesterol/Total in StoneOr dered By: Anand Lopez on 08-13-2022 Cholesterol (Stone) [Mass fraction] N/A [facility] Composition of stoneOrdered By: Anand Lopez on 08-13-2022 Composition Nom (Stone) See comment . [facility] Comment on above: Percentage (Represen ts the % composition) Cystine measurementOrdered B y: Anand Lopez on 08-13-2022 Cystine (Unsp spec) [Moles/Vol] N/A [facility] Determination of color of ca lculusOrdered By: Anand Lopez on 08-13-2022 Color (Stone) Brown . [facility] Hydroxyapatite [Energy Diffe rence] in 24 hour UrineOrdered By: Anand Lopez on 08-13-2022 Hydroxyapatite (24H U) [Energy diff] N/A [facility] Blu 08-13-2022 L ------- Specimen: [id number] Received: 08/14/22 Status: RAYMUNDO Stock Num: [id number] Spec Type: Surgical Subm Dr: Anand Lopez MD Tissues: A Urinary Calculus (LT RENAL CALCULI) Procedures: Level 1 Gross Age/ Patient Sex Location Account Attending Physician Cinthia Badillo 52/F [place] [id number] Anand Lopez MD SPEC NUM: [id number] RECD: 08/14/22 STATUS: RAYMUNDO STOCK NUM: [id number] TETE: 08/13/22- [facility] DR: Anand Lopez MD ENTERED: 08/14/[address] [facility] [address]: Kishor [facility] SPEC TYPE: Surgical DEPT: S ORDERED: Level 1 Gross ORDERED: Level 1 Gross Pathological Diagnosis Left renal stone, extraction: - Consistent with urinary calculi, see Gross Description Clinical Information Left kidney stone Gross Description Received in blood-tinged fluid labeled with the patient's name, number and left renal calculi are four stones averaging 0.2 cm. The stones are brown lack.. Entirely submitted for chemical analysis. Gross examination only. CPT Codes 32090 Specimen: [id number] Received: 08/14/22 Status: RAYMUNDO Stock Num: [id number] Spec Type: Surgical Subm Dr: Anand Lopez MD Tissues: A Urinary Calculus (LT RENAL CALCULI) Procedures: Level 1 Gross Patient: Cinthia Badillo [id number] (Continued) Signed (signature on file) Rory Connors MD 09/04/22 0897 [facility] Measurement of proportion of calculus composed of dried blood (mass/mass)Ordered By: Anand Lopez on 08-13-2022 Blood.dried (Stone) [Mass fraction] N/A [facility] Newberyite/Total in StoneOrd ered By: Anand Lopez on 08-13-2022 Newberyite (Stone) [Mass fraction] N/A [facility] No Panel InformationOrdered By: Anand Lopez on 08-13-2022 Stone 2,8 Dihydroxyadenine N/A [facility] Stone Analysis Disclaimer See comment . [facility] Comment on above: This test was develo ped and its performance characteristicsdetermined by [facility]. It has not been cleared or approvedby the Food and Drug Administration.Performed at: [facility] [id number] Director: Mike Valladares PhD, Phone: [phone] Stone Bilirubinate N/A [facility] Stone Calcium Palmitate N/A [facility] Stone Calcium Stearate N/A [facility] Stone Carbonate Apatite N/A [facility] Stone Drug or Metabolite N/A [facility] Stone Other Constituent N/A [facility] Stone Xanthine N/A [facility] Size [Entitic volume] of Sto neOrdered By: Anand Lopez on 08-13-2022 Size (Stone) [Entitic vol] 4x4 mm . [facility] Comment on above: Multiple pieces rece ived. Dimensions of the largest piecereported. Sodium urate crystals detect ion in stone by infrared spectroscopyOrdered By: Anand Lopez on 08-13-2022 Sodium urate crystals Infrared spectroscopy Ql (Stone) N/A [facility] Specimen source subject [Typ e]Ordered By: Anand Lopez on 08-13-2022 Specimen source subject Nom See comment . [facility] Comment on above: Left Kidney Triamterene measurement in c alculusOrdered By: Anand Lopez on 08-13-2022 Triamterene (Stone) [Mass fraction] N/A [facility] Triple phosphate/Total in St oneOrdered By: Anand Lopez on 08-13-2022 Triple phosphate (Stone) [Mass fraction] N/A [facility] Uric acid dihydrate crystals detection in stone by infrared spectroscopyOrdered By: Anand Lopez on 08-13-2022 Urate dihydrate crystals Infrared spectroscopy Ql (Stone) N/A [facility] Consent for Procedure/Surger yon 08-12-2022 Consent for Procedure/Surgery [id number]#[id number]:[address] [facility] Lab Reportson 08-12-2022 Lab Reports [id number]#[id number]:[address] [facility] Lab Reports [id number]:[address] [facility] Physician Orderon 08-11-2022 Physician Order [id number]:[address] [facility] CBC AUTO DIFFon 08-07-2022 BASO # 0.0 103/ul Normal 0.0-0.1 [facility] Comment on above: Performed By: #### P TT, PT #### [facility] [address] [place] [address] [address] Judy Ramirez Basophils/100 WBC (Bld) 0.5 % Normal 0.2-2.0 [facility] Comment on above: Performed By: #### P TT, PT #### [facility] [address] [place] [address] [address] Judy Ramirez EO # 0.1 103/ul Normal 0.0-0.7 [facility] Comment on above: Performed By: #### P TT, PT #### [facility] [address] [place] [address] [address] Judy Ramirez Eosinophils/100 WBC (Bld) 1.6 % Normal 0.9-7.0 [facility] Comment on above: Performed By: #### P TT, PT #### [facility] [address] [place] [address] [address] Judy Ramirez Erythrocyte distribution width (RBC) [Ratio] 12.8 % Normal 11.0-15.0 [facility] Comment on above: Performed By: #### P TT, PT #### [facility] [address] [place] [address] Dr. Judy Ramirez Hematocrit (Bld) [Volume fraction] 40.7 % Normal 36.0-48.0 [facility] Comment on above: Performed By: #### P TT, PT #### [facility] [address] [place] [address] Dr. Judy Ramirez Hemoglobin (Bld) [Mass/Vol] 13.5 g/dL Normal 12.0-16.0 [facility] Comment on above: Performed By: #### P TT, PT #### [facility] [address] [place] [address] Dr. Judy Ramirez IG # 0.02 10e3/ul Normal 0.00-0.03 [facility] Comment on above: Performed By: #### P TT, PT #### [facility] [address] [place] [address] Dr. Judy Ramirez IG % 0.3 % Normal 0.0-0.5 [facility] Comment on above: Performed By: #### P TT, PT #### [facility] [address] [place] [address] Dr. Judy Ramirez LYMPH # 2.6 103/ul Normal 1.2-3.8 [facility] Comment on above: Performed By: #### P TT, PT #### [facility] [address] [place] [address] Dr. Judy Ramirez Lymphocytes/100 WBC (Bld) 33.9 % Normal 20.5-60.0 [facility] Comment on above: Performed By: #### P TT, PT #### [facility] [address] [place] [address] Dr. Judy Ramirez MANUAL DIFF REQ NO Normal [facility] Comment on above: Performed By: #### P TT, PT #### [facility] [address] [place] [address] Dr. Judy Ramirez MCH (RBC) [Entitic mass] 28.5 pg Normal 26.7-34.0 [facility] Comment on above: Performed By: #### P TT, PT #### [facility] [address] [place] [address] Dr. Judy Ramirez MCHC (RBC) [Mass/Vol] 33.2 g/dL Normal 29.9-35.2 [facility] Comment on above: Performed By: #### P TT, PT #### [facility] [address] [place] [address] Dr. Judy Ramirez MCV (RBC) [Entitic vol] 86.0 fL Normal 81.0-99.0 [facility] Comment on above: Performed By: #### P TT, PT #### [facility] [address] [place] [address] Dr. Judy Ramirez MONO # 0.4 103/ul Normal 0.3-0.8 [facility] Comment on above: Performed By: #### P TT, PT #### [facility] [address] [place] [address] Dr. Judy Ramirez Monocytes/100 WBC (Bld) 5.6 % Normal 1.7-12.0 [facility] Comment on above: Performed By: #### P TT, PT #### [facility] [address] [place] [address] Dr. Judy Ramirez NEUT # 4.4 103/ul Normal 1.4-6.5 [facility] Comment on above: Performed By: #### P TT, PT #### [facility] [address] [place] [address] Dr. Judy Ramirez Neutrophils/100 WBC (Bld) 58.1 % Normal 43.0-75.0 [facility] Comment on above: Performed By: #### P TT, PT #### [facility] [address] [place] [address] Dr. Judy Ramirez Platelet mean volume (Bld) [Entitic vol] 9.4 fL Critically low 9.5-13.5 [facility] Comment on above: Performed By: #### P TT, PT #### [facility] [address] [place] [address] Dr. Judy Ramirez PLT 285 103/ul Normal 150-450 [facility] Comment on above: Performed By: #### P TT, PT #### [facility] [address] [place] [address] [address] Judy Ramirez RBC 4.73 106/ul Normal 4.20-5.40 [facility] Comment on above: Performed By: #### P TT, PT #### [facility] [address] [place] [address] [address] Judy Ramirez WBC 7.6 103/ul Normal 4.0-11.0 [facility] Comment on above: Performed By: #### P TT, PT #### [facility] [address] [place] [address] Dr. Judy Ramirez Lab Reportson 08-07-2022 Lab Reports [id number]:[address] [facility] PROF CHEM 8 (BAS METB)on Anion gap [Moles/Vol] 9.8 mmol/L Normal [facility] Comment on above: Performed By: #### P TT, PT #### [facility] [address] [place] [address] Dr. Judy Ramirez Calcium [Mass/Vol] 9.3 mg/dL Normal 8.5-10.1 [facility] Comment on above: Performed By: #### P TT, PT #### [facility] [address] [place] [address] Dr. Judy Ramirez Chloride [Moles/Vol] 105 mmol/L Normal 98-107 [facility] [facility] Comment on above: Performed By: #### P TT, PT #### [facility] [address] [address] [address] Judy Ramirez CO2 [Moles/Vol] 30.4 mmol/L Normal 21.0-32.0 [facility] Comment on above: Performed By: #### P TT, PT #### [facility] [address] [address] [address] Judy Ramirez Creatinine [Mass/Vol] 1.15 mg/dL Critically high 0.55-1.02 [facility] Comment on above: Performed By: #### P TT, PT #### [facility] [address] [address] [address] Judy Ramirez EGFR-AF TONGAN 60 mL/min/1.73m2 Normal >=[address] [facility] Comment on above: Performed By: #### P TT, PT #### [facility] [address] [address] [address] Judy Ramirez EGFR-NON AF TONGAN 50 mL/min/1.73m2 Critically low >=60 [facility] Comment on above: Performed By: #### P TT, PT #### [facility] [address] [address] [address] Judy Ramirez Glucose [Mass/Vol] 95 mg/dL Normal 74-106 [facility] Comment on above: Performed By: #### P TT, PT #### [facility] [address] [address] [address] Judy Ramirez Potassium [Moles/Vol] 4.2 mmol/L Normal 3.5-5.1 [facility] Comment on above: Performed By: #### P TT, PT #### [facility] [address] [address] [address] Judy Ramirez Sodium [Moles/Vol] 141 mmol/L Normal 136-145 [facility] Comment on above: Performed By: #### P TT, PT #### [facility] [address] [address] [address] Judy Ramirez Urea nitrogen [Mass/Vol] 24.0 mg/dL Critically high 7.0-18.0 [facility] Comment on above: Performed By: #### P TT, PT #### [facility] [address] [address] [address] Judy Ramirez Urea nitrogen/Creatinine [Mass ratio] 20.9 mg/mg Normal [facility] Comment on above: Performed By: #### P TT, PT #### [facility] [address] [address] [address] Judy Ramirez PROTIMEon 08-07-2022 INR Coag (PPP) [Relative time] {INR} Normal [facility] Comment on above: Performed By: #### P TT, PT #### [facility] [address] [place] [address] Dr. Judy Ramirez INR GUIDELINES SEE BELOW Normal [facility] Comment on above: Result Comment: KATHLEEN RED INR: 2.0 - 3.0 CONDITIONS NOT LISTED BELOW 2.5 - 3.5 FOR PROSTHETIC HEART VALVE REPLACEMENT 2.5 - 3.5 RECURRENT THROMBOSIS Performed By: #### P TT, PT #### [facility] [address] [place] [address] Dr. Judy Ramirez PT Coag (PPP) [Time] 9.7 s Normal 9.0-11.6 [facility] Comment on above: Performed By: #### P TT, PT #### [facility] [address] [place] [address] Dr. Judy Ramirez PTTon 08-07-2022 aPTT Coag (Bld) [Time] 33.6 s Normal 22.3-36.2 [facility] Comment on above: Performed By: #### P TT, PT #### [facility] [address] [place] [address] Dr. Judy Ramirez Consent for Procedure/Surger yon 08-06-2022 Consent for Procedure/Surgery [id number]#[id number]:[address] [facility] Pre-Certification Formon Pre-Certification Form [id number]#[id number]:[address] [facility] RAD - MISCon 08-06-2022 RAD - MISC [id number]#[id number]:[address] [facility] CALCULI, URINARYon 2,8 Dihydroxyadenine Normal [facility] Comment on above: Performed By: #### P TT, PT #### [facility] [address] [place] [address] Dr. Judy Ramirez Ammonium Acid Urate Normal [facility] Comment on above: Performed By: #### P TT, PT #### [facility] [address] [address] [address] Judy Ramirez Bilirubin Ql (U) [facility] Comment on above: Performed By: #### P TT, PT #### [facility] [address] [address] [address] Judy Ramirez Ca Oxalate Dihydrate 20 % [facility] Comment on above: Performed By: #### P TT, PT #### [facility] [address] [address] [address] Judy Ramirez CaHPO4 (Brushite) [facility] Comment on above: Performed By: #### P TT, PT #### [facility] [address] [address] [address] Judy Ramirez Calcium Bilirubinate [facility] Comment on above: Performed By: #### P TT, PT #### [facility] [address] [address] [address] Judy Ramirez Calcium Carbonate [facility] Comment on above: Performed By: #### P TT, PT #### [facility] [address] [address] [address] Judy Ramirez Calcium Oxalate Monohydrate 80 % [facility] Comment on above: Performed By: #### P TT, PT #### [facility] [address] [address] [address] Judy Ramirez Calcium Palmitate [facility] Comment on above: Performed By: #### P TT, PT #### [facility] [address] [address] [address] Judy Ramirez Calcium Phosphate [facility] Comment on above: Performed By: #### P TT, PT #### [facility] [address] [address] [address] Judy Ramirez Calcium Stearate [facility] Comment on above: Performed By: #### P TT, PT #### [facility] [address] [address] [address] Judy Ramirez Carbonate Apatite [facility] Comment on above: Performed By: #### P TT, PT #### [facility] [address] [address] [address] Judy Ramirez Cellular Material [facility] Comment on above: Performed By: #### P TT, PT #### [facility] [address] [address] [address] Judy Ramirez Cholesterol [facility] Comment on above: Performed By: #### P TT, PT #### [facility] [address] [address] [address] Judy Ramirez Color (U) Brown Normal [facility] Comment on above: Performed By: #### P TT, PT #### [facility] [address] [place] [address] Dr. Judy Ramirez Comment [facility] Comment on above: Performed By: #### P TT, PT #### [facility] [address] [place] [address] Dr. Judy Ramirez Comment: Comment Normal [facility] Comment on above: Result Comment: Phys cliffan questions regarding Calculi Analysis contact [facility] at: [phone]. Performed By: #### P TT, PT #### [facility] [address] [place] [address] Dr. Judy Ramirez Composition Comment [facility] Comment on above: Result Comment: Perc entage (Represents the % composition) Performed By: #### P TT, PT #### [facility] [address] [place] [address] Dr. Judy Ramirez Cystine [facility] Comment on above: Performed By: #### P TT, PT #### [facility] [address] [place] [address] Dr. Judy Ramirez Disclaimer: Comment [facility] Comment on above: Result Comment: This test was developed and its performance characteristics determined by [facility]. It has not been cleared or approved by the Food and Drug Administration. Performed By: #### P TT, PT #### [facility] [address] [place] [address] Dr. Judy Ramirez Dried Blood [facility] Comment on above: Performed By: #### P TT, PT #### [facility] [address] [address] [address] Judy Ramirez Drug or Metabolite Normal [facility] Comment on above: Performed By: #### P TT, PT #### [facility] [address] [address] [address] Judy Ramirez Hydroxyapatite Normal [facility] Comment on above: Performed By: #### P TT, PT #### [facility] [address] [address] [address] Judy Ramirez Mg NH4 PO4 (Struvite) [facility] Comment on above: Performed By: #### P TT, PT #### [facility] [address] [place] [address] Dr. Judy Ramirez MgHPO4 (Newberyite) [facility] Comment on above: Performed By: #### P TT, PT #### [facility] [address] [place] [address] Dr. Judy Ramirez Other component(s) [facility] Comment on above: Performed By: #### P TT, PT #### [facility] [address] [place] [address] Dr. Judy Ramirez PDF . [facility] Comment on above: Performed By: #### P TT, PT #### [facility] [address] [place] [address] Dr. Judy Ramirez Photo Comment [facility] Comment on above: Result Comment: Phot ograph will follow under a separate cover Performed By: #### P TT, PT #### [facility] [address] [place] [address] Dr. Judy Ramirez Please note: Comment Normal [facility] Comment on above: Result Comment: Calc hannah report will follow via computer, mail or first aid officer delivery. Performed By: #### P TT, PT #### [facility] [address] [place] [address] Dr. Judy Ramirez Size 3x3 [facility] Comment on above: Result Comment: Mult iple pieces received. Dimensions of the largest piece reported. Performed By: #### P TT, PT #### [facility] [address] [place] [address] Dr. Judy Ramirez Sodium Acid Urate [facility] Comment on above: Performed By: #### P TT, PT #### [facility] [address] [address] [address] Judy Ramirez Source Comment [facility] Comment on above: Result Comment: Not provided Performed By: #### P TT, PT #### [facility] [address] [place] [address] Dr. Judy Ramirez Triamterene [facility] Comment on above: Performed By: #### P TT, PT #### [facility] [address] [place] [address] Dr. Judy Ramirez Uric Acid [facility] Comment on above: Performed By: #### P TT, PT #### [facility] [address] [place] [address] Dr. Judy Ramirez Uric Acid Dihydrate [facility] Comment on above: Performed By: #### P TT, PT #### [facility] [address] [address] [address] Judy Ramirez Weight 47 mg [facility] Comment on above: Performed By: #### P TT, PT #### [facility] [address] [place] [address] Dr. Judy Ramirez Xanthine [facility] Comment on above: Performed By: #### P TT, PT #### [facility] [address] [place] [address] Dr. Judy Ramirez RAD - MISCon 08-01-2022 RAD - MISC [id number]:[address] [facility] XR KUB 1 VIEWon 07-30-2022 XR KUB 1 VIEW EXAMINATION: XR KUB 1 VIEW HISTORY: Kidney stone COMPARISON: XR KUB 07/02/2022 FINDINGS: KIDNEY/URETER - RIGHT: No visible renal or ureteral calcifications. KIDNEY/URETER - LEFT: Fragmented stone versus collection of small adjacent stones within inferior pole of kidney, approximately 7 mm in diameter. PELVIS: No visible ureteral stones. Stable small pelvic calcifications favoring phleboliths. BOWEL: No abnormal dilation or deviation. BONES: No acute abnormality. OTHER: Negative. No abnormal gaseous collections. IMPRESSION: 1. Grossly stable left nephrolithiasis. Electronically authenticated by: JERICA HOOPER Date: 2022-07-30 09:38 Normal [facility] MR head/brain wo/w conon MR head/brain wo/w con [facility] [place] [address] [place] [address] MRI Report Signed Patient: Cinthia Badillo MR#: [id number] 9 : 1970 Acct:[id number] Age/Sex: 52 / F ADM Date: 07/27/22 Loc: MR Room: Type: [facility] Attending Dr: Rose Pace Adult PRODUCTION SUPPORT CONSULTANT-BC Copies to: JODI Powers Ordering Provider: JODI Powers Date of Service: 07/27/22 MR/MR head/brain wo/w con: R20.0 G43.009 H53.9 MR head/brain wo/w con 07/27/2022 8:36 PM SIGN AND SYMPTOMS: Imbalance, numbness along right side of face and neck, visual deficits in right eye with history of migraine headaches PROTOCOL: Multiplanar multisequence MR images of the brain were obtained with and without IV contrast CONTRAST: 19 mL of intravenous ProHance COMPARISON: None. FINDINGS: Extra axial spaces: Age appropriate. Hemorrhage: None. Ventricular system: Within normal limits. Basal cisterns: Within normal limits and not effaced. Cerebral parenchyma: Scattered T2 and T2 FLAIR hyperintense foci are noted in the periventricular and subcortical white matter. These are nonspecific. There is no abnormal postcontrast enhancement. Midline shift: None.. Cerebellum: Within normal limits. Brainstem: Within normal limits. OTHER: Calvarium: Normal marrow signal. Vascular system: Satisfactory flow voids within the anterior and posterior circulation. Visualized Paranasal sinuses: Their is polypoid mucosal thickening in the left maxillary sinus. Visualized Orbits: Within normal limits. Visualized upper cervical spine: Within normal limits. Sella and skull base: Within normal limits. MR/MR head/brain wo/w con IMPRESSION: Scattered T2 and T2 FLAIR hyperintense foci are noted in the periventricular and subcortical white matter. These are nonspecific. There is no abnormal postcontrast enhancement. No acute intracranial pathology. Impression dictated by: Mike Gonzales M.D.07/28/2022 11:52 AM Dictation Location: [place] [address] Transcribed By: [facility] 07/28/22 1152 Dictated By: Mike Gonzales II, MD 07/28/22 1138 Signed By: 07/28/22 1152 Normal [facility] CARDIAC MIKE ADMITon 023 CK [Catalytic activity/Vol] 84 U/L Normal 26-192 [facility] Comment on above: Performed By: #### P TT, PT #### [facility] [address] [place] [address] Dr. Judy Ramirez CK.MB [Mass/Vol] 0.68 ng/mL Normal <=3.60 [facility] Comment on above: Performed By: #### P TT, PT #### [facility] [address] [address] [address] Judy Ramirez HSTROP 4.3 pg/mL Normal 4.0-51.3 [facility] Comment on above: Result Comment: CUT- OFF POINTS HAVE BEEN ESTABLISHED BASED ON THE FOURTH UNIVERSAL DEFINITIONS OF MYOCARDIAL INFARCTION. THE UPPER REFERENCE LIMIT (URL) OF TROPONIN, DEFINED THE 99TH PERCENTILE OF cTnI DISTRIBUTION IN A REFERENCE POPULATION, HAS BEEN CONFIRMED THE DECISION THRESHOLD FOR [place] DIAGNOSIS. Performed By: #### P TT, PT #### [facility] [address] [address] [address] Judy Ramirez YASEMIN 31 ng/mL Normal 9-82 [facility] Comment on above: Performed By: #### P TT, PT #### [facility] [address] [place] [address] Dr. Judy Ramirez CBC AUTO DIFFon 07-08-2022 BASO # 0.1 103/ul Normal 0.0-0.1 [facility] Comment on above: Performed By: #### P TT, PT #### [facility] [address] [place] [address] Dr. Judy Ramirez Basophils/100 WBC (Bld) 0.7 % Normal 0.2-2.0 [facility] Comment on above: Performed By: #### P TT, PT #### [facility] [address] [place] [address] Dr. Judy Ramirez EO # 0.2 103/ul Normal 0.0-0.7 [facility] Comment on above: Performed By: #### P TT, PT #### [facility] [address] [place] [address] Dr. Judy Ramirez Eosinophils/100 WBC (Bld) 2.1 % Normal 0.9-7.0 [facility] Comment on above: Performed By: #### P TT, PT #### [facility] [address] [place] [address] Dr. Judy Ramirez Erythrocyte distribution width (RBC) [Ratio] 12.8 % Normal 11.0-15.0 [facility] Comment on above: Performed By: #### P TT, PT #### [facility] [address] [place] [address] Dr. Judy Ramirez Hematocrit (Bld) [Volume fraction] 40.6 % Normal 36.0-48.0 [facility] Comment on above: Performed By: #### P TT, PT #### [facility] [address] [place] [address] Dr. Judy Ramirez Hemoglobin (Bld) [Mass/Vol] 13.6 g/dL Normal 12.0-16.0 [facility] Comment on above: Performed By: #### P TT, PT #### [facility] [address] [place] [address] Dr. Judy Ramirez IG # 0.04 10e3/ul Critically high 0.00-0.03 [facility] Comment on above: Performed By: #### P TT, PT #### [facility] [address] [place] [address] Dr. Judy Ramirez IG % 0.6 % Critically high 0.0-0.5 [facility] Comment on above: Performed By: #### P TT, PT #### [facility] [address] [address] [address] Judy Ramirez LYMPH # 2.6 103/ul Normal 1.2-3.8 [facility] Comment on above: Performed By: #### P TT, PT #### [facility] [address] [address] [address] Judy Ramirez Lymphocytes/100 WBC (Bld) 36.8 % Normal 20.5-60.0 [facility] Comment on above: Performed By: #### P TT, PT #### [facility] [address] [address] [address] Judy Ramirez MANUAL DIFF REQ NO Normal [facility] Comment on above: Performed By: #### P TT, PT #### [facility] [address] [place] [address] Dr. Judy Ramirez MCH (RBC) [Entitic mass] 28.8 pg Normal 26.7-34.0 [facility] Comment on above: Performed By: #### P TT, PT #### [facility] [address] [place] [address] Dr. Judy Ramirez MCHC (RBC) [Mass/Vol] 33.5 g/dL Normal 29.9-35.2 [facility] Comment on above: Performed By: #### P TT, PT #### [facility] [address] [place] [address] Dr. Judy Ramirez MCV (RBC) [Entitic vol] 86.0 fL Normal 81.0-99.0 [facility] Comment on above: Performed By: #### P TT, PT #### [facility] [address] [place] [address] Dr. Judy Ramirez MONO # 0.4 103/ul Normal 0.3-0.8 [facility] Comment on above: Performed By: #### P TT, PT #### [facility] [address] [place] [address] Dr. Judy Ramirez Monocytes/100 WBC (Bld) 6.0 % Normal 1.7-12.0 [facility] Comment on above: Performed By: #### P TT, PT #### [facility] [address] [place] [address] Dr. Judy Ramirez NEUT # 3.8 103/ul Normal 1.4-6.5 [facility] Comment on above: Performed By: #### P TT, PT #### [facility] [address] [place] [address] Dr. Judy Ramirez Neutrophils/100 WBC (Bld) 53.8 % Normal 43.0-75.0 [facility] Comment on above: Performed By: #### P TT, PT #### [facility] [address] [place] [address] Dr. Judy Ramirez Platelet mean volume (Bld) [Entitic vol] 9.6 fL Normal 9.5-13.5 [facility] Comment on above: Performed By: #### P TT, PT #### [facility] [address] [place] [address] Dr. Judy Ramirez PLT 276 103/ul Normal 150-450 [facility] Comment on above: Performed By: #### P TT, PT #### [facility] [address] [place] [address] Dr. Judy Ramirez RBC 4.72 106/ul Normal 4.20-5.40 [facility] Comment on above: Performed By: #### P TT, PT #### [facility] [address] [place] [address] Dr. Judy Ramirez WBC 7.0 103/ul Normal 4.0-11.0 [facility] Comment on above: Performed By: #### P TT, PT #### [facility] [address] [place] [address] Dr. Judy Ramirez CRPon 07-08-2022 CRP [Mass/Vol] mg/L Normal <=1.0 [facility] Comment on above: Performed By: #### P TT, PT #### [facility] [address] [place] [address] Dr. Judy Ramirez D-DIMERon 07-08-2022 D-DIMER 0.39 mg/L FEU Normal <=0.59 [facility] Comment on above: Performed By: #### P TT, PT #### [facility] [address] [place] [address] Dr. Judy Ramirez D-DIMER COMMENTS SEE BELOW Normal [facility] Comment on above: Result Comment: Incr eases in D-Dimer concentration observed with thromboembolic events can be variable due to localization, size, and age of the thrombus. Therefore, a thromboembolic event cannot be diagnosed with certainty on the basis of the reference range. D-Dimers may also be elevated for a variety of disorders including: advanced age, , coronary disease, cancer, liver disease, infection, inflammation, hematoma, DIC, trauma, post-surgery, diabetes, thrombolytic or anticoagulant therapy, stress, and generalized hospitalization. Performed By: #### P TT, PT #### [facility] [address] [place] [address] Dr. Judy Ramirez LIVER PROFILEon 07-08-2022 Albumin [Mass/Vol] 3.7 g/dL Normal 3.4-5.0 [facility] Comment on above: Performed By: #### T SH, CRP, MG, LIVER, BMP, CMADM #### [facility] [address] [place] [address] Dr. Judy Ramirez Albumin/Globulin [Mass ratio] 0.9 {ratio} Normal [facility] Comment on above: Performed By: #### T SH, CRP, MG, LIVER, BMP, CMADM #### [facility] [address] [place] [address] Dr. Judy Ramirez ALP [Catalytic activity/Vol] 98 U/L Normal 46-116 [facility] Comment on above: Performed By: #### T SH, CRP, MG, LIVER, BMP, CMADM #### [facility] [address] [place] [address] Dr. Judy Ramirez ALT [Catalytic activity/Vol] 37 U/L Normal 14-59 [facility] Comment on above: Performed By: #### T SH, CRP, MG, LIVER, BMP, CMADM #### [facility] [address] [place] [address] Dr. Judy Ramirez AST [Catalytic activity/Vol] 19 U/L Normal 15-37 [facility] Comment on above: Performed By: #### T SH, CRP, MG, LIVER, BMP, CMADM #### [facility] [address] [place] [address] Dr. Judy Ramirez BILI, CONJUGATED 0.1 mg/dL Normal 0.0-0.2 [facility] Comment on above: Performed By: #### T SH, CRP, MG, LIVER, BMP, CMADM #### [facility] [address] [place] [address] Dr. Judy Ramirez Bilirubin [Mass/Vol] 0.4 mg/dL Normal 0.2-1.0 [facility] Comment on above: Performed By: #### T SH, CRP, MG, LIVER, BMP, CMADM #### [facility] [address] [place] [address] Dr. Judy Ramirez Globulin (S) [Mass/Vol] 4.0 g/dL Normal [facility] Comment on above: Performed By: #### T SH, CRP, MG, LIVER, BMP, CMADM #### [facility] [address] [place] [address] Dr. Judy Ramirez Protein [Mass/Vol] 7.7 g/dL Normal 6.4-8.2 [facility] Comment on above: Performed By: #### T SH, CRP, MG, LIVER, BMP, CMADM #### [facility] [address] [place] [address] Dr. Judy Ramirez MAGNESIUMon 07-08-2022 Magnesium [Mass/Vol] 2.1 mg/dL Normal 1.8-2.4 [facility] Comment on above: Performed By: #### T SH, CRP, MG, LIVER, BMP, CMADM #### [facility] [address] [place] [address] Dr. Judy Ramirez PROF CHEM 8 (BAS METB)on Anion gap [Moles/Vol] 11.0 mmol/L Normal [facility] Comment on above: Performed By: #### T SH, CRP, MG, LIVER, BMP, CMADM #### [facility] [address] [address] [address] Judy Ramirez Calcium [Mass/Vol] 9.4 mg/dL Normal 8.5-10.1 [facility] Comment on above: Performed By: #### T SH, CRP, MG, LIVER, BMP, CMADM #### [facility] [address] [place] [address] Dr. Judy Ramirez Chloride [Moles/Vol] 102 mmol/L Normal 98-107 [facility] Comment on above: Performed By: #### T SH, CRP, MG, LIVER, BMP, CMADM #### [facility] [address] [address] [address] Judy Ramirez CO2 [Moles/Vol] 29.4 mmol/L Normal 21.0-32.0 [facility] Comment on above: Performed By: #### T SH, CRP, MG, LIVER, BMP, CMADM #### [facility] [address] [place] [address] Dr. Judy Ramirez Creatinine [Mass/Vol] 1.04 mg/dL Critically high 0.55-1.02 [facility] Comment on above: Performed By: #### T SH, CRP, MG, LIVER, BMP, CMADM #### [facility] [address] [place] [address] Dr. Judy Ramirez EGFR-AF TONGAN >60 Normal >=60 [facility] Comment on above: Performed By: #### T SH, CRP, MG, LIVER, BMP, CMADM #### [facility] [address] [place] [address] Dr. Judy Ramirez EGFR-NON AF TONGAN 56 mL/min/1.73m2 Critically low >=60 [facility] Comment on above: Performed By: #### T SH, CRP, MG, LIVER, BMP, CMADM #### [facility] [address] [place] [address] Dr. Judy Ramirez Glucose [Mass/Vol] 98 mg/dL Normal 74-106 [facility] Comment on above: Performed By: #### T SH, CRP, MG, LIVER, BMP, CMADM #### [facility] [address] [place] [address] Dr. Judy Ramirez Potassium [Moles/Vol] 4.4 mmol/L Normal 3.5-5.1 [facility] Comment on above: Performed By: #### T SH, CRP, MG, LIVER, BMP, CMADM #### [facility] [address] [place] [address] Dr. Judy Ramirez Sodium [Moles/Vol] 138 mmol/L Normal 136-145 [facility] Comment on above: Performed By: #### T SH, CRP, MG, LIVER, BMP, CMADM #### [facility] [address] [place] [address] Dr. Judy Ramirez Urea nitrogen [Mass/Vol] 25.0 mg/dL Critically high 7.0-18.0 [facility] Comment on above: Performed By: #### T SH, CRP, MG, LIVER, BMP, CMADM #### [facility] [address] [place] [address] Dr. Judy Ramirez Urea nitrogen/Creatinine [Mass ratio] 24.0 mg/mg Normal [facility] Comment on above: Performed By: #### T SH, CRP, MG, LIVER, BMP, CMADM #### [facility] [address] [place] [address] Dr. Judy Ramirez SED RATE [facility] 2022 SED RATE 27 mm/hr Normal <=30 [facility] Comment on above: Performed By: #### S EDR #### [facility] [address] [place] [address] Dr. Judy Ramirez TSHon 07-08-2022 TSH 0.701 uIU/mL Normal 0.358-3.740 [facility] Comment on above: Performed By: #### T SH, CRP, MG, LIVER, BMP, CMADM #### [facility] [address] [place] [address] Dr. Judy Ramirez UA (CLEAN/CATCH) [employer]/MICRO I F IND.on 07-08-2022 Bilirubin Ql (U) Negative Normal NEGATIVE [facility] Comment on above: Performed By: #### U ACSIND, UMICRO #### [facility] [address] [address] [address] Judy Ramirez Clarity (U) CLEAR Normal CLEAR [facility] Comment on above: Performed By: #### U ACSIND, UMICRO #### [facility] [address] [address] [address] Judy Ramirez Color (U) LT. YELLOW Normal YELLOW [facility] Comment on above: Performed By: #### U ACSIND, UMICRO #### [facility] [address] [address] [address] Judy Ramirez Glucose Ql (U) Negative Normal NEGATIVE [facility] Comment on above: Performed By: #### U ACSIND, UMICRO #### [facility] [address] [place] [address] Dr. Judy Ramirez Hemoglobin Ql (U) Negative Normal NEGATIVE [facility] Comment on above: Performed By: #### U ACSIND, UMICRO #### [facility] [address] [place] [address] Dr. Judy Ramirez Ketones Ql (U) Negative Normal NEGATIVE [facility] Comment on above: Performed By: #### U ACSSIDDHARTHA, UMICRO #### [facility] [address] [address] [address] Judy Ramirez LEUKOCYTES Negative Normal NEGATIVE [facility] Comment on above: Performed By: #### U ACSIND, UMICRO #### [facility] [address] [place] [address] Dr. Judy Ramirez Nitrite Ql (U) Negative Normal NEGATIVE [facility] Comment on above: Performed By: #### U ACSIND, UMICRO #### [facility] [address] [address] [address] Judy Ramirez pH (U) 6.0 [pH] Normal 5-9 [facility] Comment on above: Performed By: #### U ACSIND, UMICRO #### [facility] [address] [place] [address] Dr. Judy Ramirez SPEC GRAVITY <=1.005 Abnormal 1.005-<=1.0 25 [facility] Comment on above: Performed By: #### U ACSIND, UMICRO #### [facility] [address] [address] [address] Judy Ramirez UA PROTEIN Negative Normal NEGATIVE/ TRACE [facility] Comment on above: Performed By: #### U ACSIND, UMICRO #### [facility] [address] [address] [address] Judy Ramirez UR MICRO IND MICROSCOPIC ALREADY ORDERED Normal [facility] Comment on above: Performed By: #### U ACSIND, UMICRO #### [facility] [address] [place] [address] Dr. Judy Ramirez Urobilinogen Qn (U) 0.2 {Evelyn'U}/dL Normal 0.2 - 1. 0 [facility] Comment on above: Performed By: #### U ACSIND, UMICRO #### [facility] [address] [place] [address] Dr. Judy Ramirez URINE MICROSCOPIC ONLYon BACTERIA NONE SEEN Normal NONE SEEN [facility] Comment on above: Performed By: #### U ACSIND, UMICRO #### [facility] [address] [place] [address] Dr. Juyd Ramirez Bacteria identified Cx Nom (U) NOT INDICATED Normal [facility] Comment on above: Performed By: #### U ACSIND, UMICRO #### [facility] [address] [place] [address] Dr. Judy Ramirez CAST NONE SEEN Normal NONE SEEN [facility] Comment on above: Performed By: #### U ACSIND, UMICRO #### [facility] [address] [place] [address] Dr. Judy Ramirez Crystals LM Nom (Urine sed) NONE SEEN Normal NONE SEEN [facility] Comment on above: Performed By: #### U ACSIND, UMICRO #### [facility] [address] [place] [address] Dr. Judy Ramirez Epithelial cells LM Ql (Urine sed) FEW Abnormal NONE SEEN /RARE [facility] Comment on above: Performed By: #### U ACSIND, UMICRO #### [facility] [address] [address] [address] Judy Ramirez MUCOUS TRACE Abnormal NONE SEEN [facility] Comment on above: Performed By: #### U ACSIND, UMICRO #### [facility] [address] [place], [place] [address] Dr. Judy Ramirez RBC NONE SEEN Abnormal 0-2 [facility] Comment on above: Performed By: #### [facility], UMICRO #### [facility] [address] [address] [address] Judy Ramirez WBC NONE SEEN Normal NONE SEEN [facility] Comment on above: Performed By: #### U [facility], UMICRO #### [facility] [address] [address] [address] Judy Ramirez Operative Reporton Operative Report [id number]:[address] [facility] RAD - MISCon 07-02-2022 RAD - MISC [id number]:[address] [facility] XR KUB 1 VIEWon 07-02-2022 XR KUB 1 VIEW EXAMINATION: XR KUB 1 VIEW HISTORY: Urolithiasis COMPARISON: XR KUB 06/20/2022 FINDINGS: KIDNEY/URETER - RIGHT: No visible renal or ureteral calcifications. KIDNEY/URETER - LEFT: 7 mm stone projecting over superior pole. PELVIS: No visible ureteral stones. Stable tiny pelvic calcifications compatible with phleboliths. BOWEL: No abnormal dilation or deviation. BONES: No acute abnormality. OTHER: Negative. No abnormal gaseous collections. IMPRESSION: 1. Grossly stable left nephrolithiasis. Electronically authenticated by: JERICA HOOPER Date: 2022-07-02 12:05 Normal [facility] ECG 12-Leadon 06-30-2022 ECG 12-Lead [id number]:[address] [facility] Lab Reportson 06-30-2022 Lab Reports [id number]#[id number]:[address] [facility] CBC AUTO DIFFon 06-29-2022 BASO # 0.0 103/ul Normal 0.0-0.1 [facility] Comment on above: Performed By: #### P TT, PT #### [facility] [address] [place] [address] Dr. Judy Ramirez Basophils/100 WBC (Bld) 0.4 % Normal 0.2-2.0 [facility] Comment on above: Performed By: #### P TT, PT #### [facility] [address] [place] [address] Dr. Judy Ramirez EO # 0.1 103/ul Normal 0.0-0.7 [facility] Comment on above: Performed By: #### P TT, PT #### [facility] [address] [place] [address] Dr. Judy Ramirez Eosinophils/100 WBC (Bld) 1.5 % Normal 0.9-7.0 [facility] Comment on above: Performed By: #### P TT, PT #### [facility] [address] [place] [address] Dr. Judy Ramirez Erythrocyte distribution width (RBC) [Ratio] 13.1 % Normal 11.0-15.0 [facility] Comment on above: Performed By: #### P TT, PT #### [facility] [address] [place] [address] Dr. Judy Ramirez Hematocrit (Bld) [Volume fraction] 40.7 % Normal 36.0-48.0 [facility] Comment on above: Performed By: #### P TT, PT #### [facility] [address] [place] [address] Dr. Judy Ramirez Hemoglobin (Bld) [Mass/Vol] 13.8 g/dL Normal 12.0-16.0 [facility] Comment on above: Performed By: #### P TT, PT #### [facility] [address] [place] [address] Dr. Judy Ramirez IG # 0.03 10e3/ul Normal 0.00-0.03 [facility] Comment on above: Performed By: #### P TT, PT #### [facility] [address] [place] [address] Dr. Judy Ramirez IG % 0.4 % Normal 0.0-0.5 [facility] Comment on above: Performed By: #### P TT, PT #### [facility] [address] [place] [address] Dr. Judy Ramirez LYMPH # 1.9 103/ul Normal 1.2-3.8 [facility] Comment on above: Performed By: #### P TT, PT #### [facility] [address] [place] [address] Dr. Judy Ramirez Lymphocytes/100 WBC (Bld) 24.5 % Normal 20.5-60.0 [facility] Comment on above: Performed By: #### P TT, PT #### [facility] [address] [place] [address] Dr. Judy Ramirez MANUAL DIFF REQ NO Normal [facility] Comment on above: Performed By: #### P TT, PT #### [facility] [address] [place] [address] Dr. Judy Ramirez MCH (RBC) [Entitic mass] 28.4 pg Normal 26.7-34.0 [facility] Comment on above: Performed By: #### P TT, PT #### [facility] [address] [place] [address] Dr. Judy Ramirez MCHC (RBC) [Mass/Vol] 33.9 g/dL Normal 29.9-35.2 [facility] Comment on above: Performed By: #### P TT, PT #### [facility] [address] [place] [address] Dr. Judy Ramirez MCV (RBC) [Entitic vol] 83.7 fL Normal 81.0-99.0 [facility] Comment on above: Performed By: #### P TT, PT #### [facility] [address] [place] [address] Dr. Judy Ramirez MONO # 0.5 103/ul Normal 0.3-0.8 [facility] Comment on above: Performed By: #### P TT, PT #### [facility] [address] [place] [address] Dr. Judy Ramirez Monocytes/100 WBC (Bld) 6.5 % Normal 1.7-12.0 [facility] Comment on above: Performed By: #### P TT, PT #### [facility] [address] [place] [address] Dr. Judy Ramirez NEUT # 5.1 103/ul Normal 1.4-6.5 [facility] Comment on above: Performed By: #### P TT, PT #### [facility] [address] [place] [address] Dr. Judy Ramirez Neutrophils/100 WBC (Bld) 66.7 % Normal 43.0-75.0 [facility] Comment on above: Performed By: #### P TT, PT #### [facility] [address] [place] [address] Dr. Judy Ramirez Platelet mean volume (Bld) [Entitic vol] 9.5 fL Normal 9.5-13.5 [facility] Comment on above: Performed By: #### P TT, PT #### [facility] [address] [place] [address] Dr. Judy Ramirez PLT 238 103/ul Normal 150-450 [facility] Comment on above: Performed By: #### P TT, PT #### [facility] [address] [place] [address] Dr. Judy Ramirez RBC 4.86 106/ul Normal 4.20-5.40 [facility] Comment on above: Performed By: #### P TT, PT #### [facility] [address] [place] [address] Dr. Judy Ramirez WBC 7.6 103/ul Normal 4.0-11.0 [facility] Comment on above: Performed By: #### P TT, PT #### [facility] [address] [place] [address] Dr. Judy Ramirez Lab Reportson 06-29-2022 Lab Reports [id number]:[address] [facility] PROF CHEM 8 (BAS METB)on Anion gap [Moles/Vol] 11.5 mmol/L Normal Th e [facility] Comment on above: Performed By: #### B MP #### [facility] [address] [address] [address] Judy Ramirez Calcium [Mass/Vol] 9.9 mg/dL Normal 8.5-10.1 [facility] Comment on above: Performed By: #### B MP #### [facility] [address] [address] [address] Judy Ramirez Chloride [Moles/Vol] 105 mmol/L Normal 98-107 [facility] Comment on above: Performed By: #### B MP #### [facility] [address] [address] [address] Judy Ramirez CO2 [Moles/Vol] 28.1 mmol/L Normal 21.0-32.0 [facility] Comment on above: Performed By: #### B MP #### [facility] [address] [address] [address] Judy Ramirez Creatinine [Mass/Vol] 1.11 mg/dL Critically high 0.55-1.02 [facility] Comment on above: Performed By: #### B MP #### [facility] [address] [address] [address] Judy Ramirez EGFR-AF TONGAN >60 Normal >=60 [facility] Comment on above: Performed By: #### B MP #### [facility] [address] [address] [address] Judy Ramirez EGFR-NON AF TONGAN 52 mL/min/1.73m2 Critically low >=60 [facility] Comment on above: Performed By: #### B MP #### [facility] [address] [address] [address] Judy Ramirez Glucose [Mass/Vol] 97 mg/dL Normal 74-106 [facility] Comment on above: Performed By: #### B MP #### [facility] [address] [address] [address] Judy Ramirez Potassium [Moles/Vol] 3.6 mmol/L Normal 3.5-5.1 [facility] Comment on above: Performed By: #### B MP #### [facility] [address] [address] [address] Judy Ramirez Sodium [Moles/Vol] 141 mmol/L Normal 136-145 [facility] Comment on above: Performed By: #### B MP #### [facility] [address] [address] [address] Judy Ramirez Urea nitrogen [Mass/Vol] 15.0 mg/dL Normal 7.0-18.0 [facility] Comment on above: Performed By: #### B MP #### [facility] [address] [address] [address] Judy Ramirez Urea nitrogen/Creatinine [Mass ratio] 13.5 mg/mg Normal [facility] Comment on above: Performed By: #### B MP #### [facility] [address] [address] [address] Judy Ramirez PROTIMEon 06-29-2022 INR Coag (PPP) [Relative time] {INR} Normal [facility] Comment on above: Performed By: #### S EDR #### [facility] [address] [place] [address] Dr. Judy Ramirez INR GUIDELINES SEE BELOW Normal [facility] Comment on above: Result Comment: KATHLEEN RED INR: 2.0 - 3.0 CONDITIONS NOT LISTED BELOW 2.5 - 3.5 FOR PROSTHETIC HEART VALVE REPLACEMENT 2.5 - 3.5 RECURRENT THROMBOSIS Performed By: #### S EDR #### [facility] [address] [address] [address] Judy Ramirez PT Coag (PPP) [Time] 9.8 s Normal 9.0-11.6 [facility] Comment on above: Performed By: #### S EDR #### [facility] [address] [address] [address] Judy Ramirez PTTon 06-29-2022 aPTT Coag (Bld) [Time] 35.3 s Normal 22.3-36.2 [facility] Comment on above: Performed By: #### S EDR #### [facility] [address] [place] [address] Dr. Judy Ramirez RAD - CT Reporton 06-29-2022 RAD - CT Report [id number]#1.00CD:[address] [facility] RAD - MISCon 06-29-2022 RAD - MISC [id number]#1.00CD:127 [facility] Consent for Procedure/Surger yon 06-23-2022 Consent for Procedure/Surgery [id number]#[id number]:127 [facility] Physician Referralon 023 Physician Referral [id number]#[id number]:127 [facility] Pre-Certification Formon Pre-Certification Form [id number]#1.00CD:127 [facility] Ambulatory Visit Summaryon 0 06-22-2022 Ambulatory Visit Summary CINTHIA BADILLO :1970 Visit Date:06/22/2022 Ambulatory Visit Instructions Your Diagnosis Kidney stone Left flank pain Tests Performed Urnls Dip Stick Auto w/o Microscopy POC 18080 Your Care Team Attending Physician - PATI DOHERTY, Anand Fonseca Primary Care Physician - KAMILLA PATTON CNP This Is Your Medications List Contact prescribing physician if questions or concerns amitriptyline (amitriptyline 10 mg Tab) ascorbic acid (Vitamin C) cranberry (Cranberry) lactobacillus acidophilus (Acidophilus Probiotic Blend) melatonin (Melatonin) multivitamin multivitamin with minerals (Viactiv Soft Calcium Chews) omega-3 polyunsaturated fatty acids (Craig-3 oral capsule) pantoprazole (Pantoprazole [address] Tab) trazodone (traZODONE 50 mg Tab) Procedures Performed Cholecystectomy, Hysterectomy. Discharge Vitals Height 165 cm Height 65 in Weight 92 kg Weight 202.4 lb BMI 33.79 What to do next You Need to Schedule the Following Appointments Follow Up with PATI DOHERTY, NICHELLE Sanabria When: Where: [facility] [address], [place] [address]- Medications What How Much When Instructions Unchanged amitriptyline (amitriptyline 10 mg Tab) Contact prescribing physician if questions or concerns Unchanged ascorbic acid (Vitamin C) Every day Contact prescribing physician if questions or concerns Unchanged cranberry (Cranberry) Contact prescribing physician if questions or concerns Unchanged lactobacillus acidophilus (Acidophilus Probiotic Blend) Every day Contact prescribing physician if questions or concerns Unchanged melatonin (Melatonin) Once a day (at bedtime) Contact prescribing physician if questions or concerns Unchanged multivitamin Every day Contact prescribing physician if questions or concerns Unchanged multivitamin with minerals (Viactiv Soft Calcium Chews) Contact prescribing physician if questions or concerns Unchanged omega-3 polyunsaturated fatty acids (Craig-3 oral capsule) Contact prescribing physician if questions or concerns Unchanged pantoprazole (Pantoprazole [address] Tab) Contact prescribing physician if questions or concerns Unchanged trazodone (traZODONE 50 mg Tab) Contact prescribing physician if questions or concerns Test Results Urnls Dip Stick Auto w/o Microscopy POC 92031 (06/22/2022) Bilirubin Urine Dipstick - Negative Blood Urine Dipstick - Negative Glucose Urine Dipstick - Negative Ketones Urine Dipstick - Negative Leukocytes Urine Dipstick - Negative Nitrite Urine Dipstick - Negative Protein Urine Dipstick - Negative Specific [place] Urine Dipstick - <=1.005 Urine Appearance Urine Dipstick - Clear Urine Color Urine Dipstick - Light yellow Urobilinogen Urine Dipstick - Normal 0.2-1 EU/dl pH Urine Dipstick - 5.5 Allergies penicillin (Unknown) Problems Ongoing - Any problem that you are currently receiving treatment for. Arthritis Asthma Gallstones Gastroesophageal reflux disease Kidney stone Left flank pain Education Materials Dietary Guidelines to Help Prevent Kidney Stones Kidney stones are deposits of minerals and salts that form inside your kidneys. Your risk of developing kidney stones may be greater depending on your diet, your lifestyle, the medicines you take, and whether you have certain medical conditions. Most people can reduce their chances of developing kidney stones by following the instructions below. Depending on your overall health and the type of kidney stones you tend to develop, your dietitian may give you more specific instructions. What are tips for following this plan? Reading food labels ? Choose foods with no salt added or low-salt labels. Limit your sodium intake to less than 1500 mg per day. ? Choose foods with calcium for each meal and snack. Try to eat about 300 mg of calcium at each meal. Foods that contain 200?500 mg of calcium per serving include: ? 8 oz (237 ml) of milk, fortified nondairy milk, and fortified fruit juice. ? 8 oz (237 ml) of kefir, yogurt, and soy yogurt. ? 4 oz (118 ml) of tofu. ? 1 oz of cheese. ? 1 cup (300 g) of dried figs. ? 1 cup (91 g) of cooked broccoli. ? 1?3 oz can of sardines or mackerel. ? Most people need 1000 to 1500 mg of calcium each day. Talk to your dietitian about how much calcium is recommended for you. Shopping ? Buy plenty of fresh fruits and vegetables. Most people do not need to avoid fruits and vegetables, even if they contain nutrients that may contribute to kidney stones. ? When shopping for convenience foods, choose: ? Whole pieces of fruit. ? Premade salads with dressing on the side. ? Low-fat fruit and yogurt smoothies. ? Avoid buying frozen meals or prepared deli foods. ? Look for foods with live cultures, such as yogurt and kefir. Cooking ? Do not add salt to food when cooking. Place a salt shaker on the table and allow each (more content not included)... Normal [facility] Patient Educationon 06-23-19 23 Patient Education Urology Dietary Guidelines to Help Prevent Kidney Stones Kidney stones are deposits of minerals and salts that form inside your kidneys. Your risk of developing kidney stones may be greater depending on your diet, your lifestyle, the medicines you take, and whether you have certain medical conditions. Most people can reduce their chances of developing kidney stones by following the instructions below. Depending on your overall health and the type of kidney stones you tend to develop, your dietitian may give you more specific instructions. What are tips for following this plan? Reading food labels ? Choose foods with no salt added or low-salt labels. Limit your sodium intake to less than 1500 mg per day. ? Choose foods with calcium for each meal and snack. Try to eat about 300 mg of calcium at each meal. Foods that contain 200?500 mg of calcium per serving include: ? 8 oz (237 ml) of milk, fortified nondairy milk, and fortified fruit juice. ? 8 oz (237 ml) of kefir, yogurt, and soy yogurt. ? 4 oz (118 ml) of tofu. ? 1 oz of cheese. ? 1 cup (300 g) of dried figs. ? 1 cup (91 g) of cooked broccoli. ? 1?3 oz can of sardines or mackerel. ? Most people need 1000 to 1500 mg of calcium each day. Talk to your dietitian about how much calcium is recommended for you. Shopping ? Buy plenty of fresh fruits and vegetables. Most people do not need to avoid fruits and vegetables, even if they contain nutrients that may contribute to kidney stones. ? When shopping for convenience foods, choose: ? Whole pieces of fruit. ? Premade salads with dressing on the side. ? Low-fat fruit and yogurt smoothies. ? Avoid buying frozen meals or prepared deli foods. ? Look for foods with live cultures, such as yogurt and kefir. Cooking ? Do not add salt to food when cooking. Place a salt shaker on the table and allow each person to add his or her own salt to taste. ? Use vegetable protein, such as beans, textured vegetable protein (TVP), or tofu instead of meat in pasta, casseroles, and soups. Meal planning ? Eat less salt, if told by your dietitian. To do this: ? Avoid eating processed or premade food. ? Avoid eating fast food. ? Eat less animal protein, including cheese, meat, poultry, or fish, if told by your dietitian. To do this: ? Limit the number of times you have meat, poultry, fish, or cheese each week. Eat a diet free of meat at least 2 days a week. ? Eat only one serving each day of meat, poultry, fish, or seafood. ? When you prepare animal protein, cut pieces into small portion sizes. For most meat and fish, one serving is about the size of one deck of cards. ? Eat at least 5 servings of fresh fruits and vegetables each day. To do this: ? Keep fruits and vegetables on hand for snacks. ? Eat 1 piece of fruit or a handful of berries with breakfast. ? Have a salad and fruit at lunch. ? Have two kinds of vegetables at dinner. ? Limit foods that are high in a substance called oxalate. These include: ? Spinach. ? Rhubarb. ? Beets. ? Potato chips and singaporean fries. ? Nuts. ? If you regularly take a diuretic medicine, make sure to eat at least 1?2 fruits or vegetables high in potassium each day. These include: ? Avocado. ? Banana. ? [place], prune, carrot, or tomato juice. ? Baked potato. ? Cabbage. ? Beans and split peas. General instructions ? Drink enough fluid to keep your urine clear or pale yellow. This is the most important thing you can do. ? Talk to your health care provider and dietitian about taking daily supplements. Depending on your health and the cause of your kidney stones, you may be advised: ? Not to take supplements with vitamin C. ? To take a calcium supplement. ? To take a daily probiotic supplement. ? To take other supplements such as magnesium, fish oil, or vitamin B6. ? Take all medicines and supplements as told by your health care provider. ? Limit alcohol intake to no more than 1 drink a day for non women and 2 drinks a day for men. One drink equals 12 oz of beer, 5 oz of wine, or 1? oz of hard liquor. ? Lose weight if told by your health care provider. Work with your dietitian to find strategies and an eating plan that works best for you. What foods are not recommended? Limit your intake of the following foods, or as told by your dietitian. Talk to your dietitian about specific foods you should avoid based on the type of kidney stones and your overall health. Grains Breads. Bagels. Rolls. Baked goods. Salted crackers. Cereal. Pasta. Vegetables Spinach. Rhubarb. Beets. Canned vegetables. Pickles. Olives. Meats and other protein foods Nuts. Nut butters. Large portions of meat, poultry, or fish. Salted or cured meats. Deli meats. Hot dogs. Sausages. Dairy Cheese. Beverages Regular soft drinks. Regular vegetable juice. Seasonings and other foods Seasoning blends with salt. Salad dr (more content not included)... Normal [facility] XR KUB 1 VIEWon 06-20-2022 XR KUB 1 VIEW EXAMINATION: XR KUB 1 VIEW HISTORY: Kidney stone COMPARISON: 11/06/2020 FINDINGS: KIDNEY/URETER - RIGHT: No visible renal or ureteral calcifications. KIDNEY/URETER - LEFT: 9 mm left nephrolith PELVIS: No visible ureteral calcifications. Any visible calcifications favor phleboliths. BOWEL: No abnormal dilation or deviation. BONES: [Stool throughout the colon OTHER: Negative. No abnormal gaseous collections. IMPRESSION: Left nephrolithiasis Electronically authenticated by: LUIS M SOLOMON Date: 2022-06-20 12:12 Normal [facility] MAMM SCREEN 3D LEE CADon 06-16-2022 MG MAMM SCREEN 3D LEE CAD Patient: CINTHIA BADILLO Exam Date: 06/16/2022 : 1970 Gender:F Ordering : ZELALEM PATTON [facility] Admission #: [id number] Family : Order #: [id number] CLICK HERE TO VIEW EXAM RADIOLOGY REPORT PROCEDURE: MAMMOGRAM SCREENING 3D BILATERAL CAD COMPARISON: MG MAMM SCREEN 3D LEE CAD, 05/01/2019. MG MAMM SCREEN 3D LEE CAD, 03/26/2021. INDICATIONS: Screening mammography Calculator Name NCI Breast Cancer Risk Assessment Tool 5 Year Breast Cancer Risk 0.80% Lifetime Breast Cancer Risk 7.20% Personal Breast Cancer No Personal Ovarian Cancer No Treatments None Family Cancers Grandmother-maternal with breast cancer at age 79. LOCATION: [facility] BREAST COMPOSITION: Scattered areas fibroglandular density. FINDINGS: DIAGNOSTIC CATEGORY 2--BENIGN FINDING. NO CHANGE FROM COMPARISON. Scattered benign-appearing calcifications are present. Scattered benign-appearing lymph nodes are present. RIGHT BREAST: No significant suspicious finding. LEFT BREAST: No significant suspicious finding. RECOMMENDATIONS: ROUTINE MAMMOGRAM AND CLINICAL EVALUATION IN 12 MONTHS. PLEASE NOTE: A NORMAL MAMMOGRAM DOES NOT EXCLUDE THE POSSIBILITY OF BREAST CANCER. A CLINICALLY SUSPICIOUS PALPABLE LUMP SHOULD BE BIOPSIED. Dictated by: Luis M Solomon MD on 06/17/2022 at 08:04 Approved by: Luis M Solomon MD on 06/17/2022 at 08:[address] [facility] [address] ABD/PELV W CONon 06-04-19 CT ABD/PELV W CON EXAMINATION: CT ABD/ PELV W CON HISTORY: Epigastric pain COMPARISON: No relevant comparison available. TECHNIQUE: Axial, Coronal, and Sagittal images were obtained without and/or with IV contrast as indicated by examination type. Dose reduction techniques were achieved by using automated exposure control and/or adjustment of mA and/or kV according to patient size and/or use of iterative reconstruction technique. FINDINGS: LUNG BASES: No visible pulmonary or pleural disease. LIVER: No enlargement, atrophy, suspicious density, or significant focal lesion. BILIARY: Cholecystectomy. No abnormal duct dilation or stones. PANCREAS: No lesion, fluid collection, or abnormal duct dilatation. SPLEEN: No enlargement or focal lesion. ADRENALS: No mass or enlargement. KIDNEYS: Nonobstructing 7 mm stone within left kidney. Unremarkable right kidney and bilateral ureters. BOWEL/MESENTERY: No visible mass, obstruction, or bowel wall thickening. AORTA/VASCULAR: No aneurysm or dissection. RETROPERITONEUM: No mass or adenopathy. LYMPH NODES: No adenopathy. URINARY BLADDER: No visible focal wall thickening, lesion, or calculus. PELVIC ORGANS: No visible mass. Pelvic organs appropriate for patient age. ABDOMINAL WALL: No mass or hernia. BONES: No bony lesion or fracture. OTHER: Negative. IMPRESSION: 1. No acute or suspicious findings to account for patient's symptoms. 2.Prior cholecystectomy. No abnormal duct dilation or stones within the duct. 3.Nonobstructing left nephrolithiasis. Electronically authenticated by: JERICA HOOPER Date: 2022-06-03 08:59 Normal [facility] AMYLASEon 05-23-2022 Amylase [Catalytic activity/Vol] 74 U/L Normal 25-115 [facility] Comment on above: Performed By: #### S EDR #### [facility] [address] [address] [address] Judy Ramirez CBC AUTO DIFFon 05-23-2022 BASO # 0.0 103/ul Normal 0.0-0.1 [facility] Comment on above: Performed By: #### S EDR #### [facility] [address] [address] [address] Judy Ramirez Basophils/100 WBC (Bld) 0.5 % Normal 0.2-2.0 [facility] Comment on above: Performed By: #### S EDR #### [facility] [address] [place] [address] Dr. Judy Ramirez EO # 0.1 103/ul Normal 0.0-0.7 [facility] Comment on above: Performed By: #### S EDR #### [facility] [address] [place] [address] Dr. Judy Ramirez Eosinophils/100 WBC (Bld) 2.6 % Normal 0.9-7.0 [facility] Comment on above: Performed By: #### S EDR #### [facility] [address] [place] [address] Dr. Judy Ramirez Erythrocyte distribution width (RBC) [Ratio] 12.4 % Normal 11.0-15.0 [facility] Comment on above: Performed By: #### S EDR #### [facility] [address] [place] [address] Dr. Judy Ramirez Hematocrit (Bld) [Volume fraction] 41.1 % Normal 36.0-48.0 [facility] Comment on above: Performed By: #### S EDR #### [facility] [address] [place] [address] Dr. Judy Ramirez Hemoglobin (Bld) [Mass/Vol] 13.8 g/dL Normal 12.0-16.0 [facility] Comment on above: Performed By: #### S EDR #### [facility] [address] [place] [address] Dr. Judy Ramirez IG # 0.01 10e3/ul Normal 0.00-0.03 [facility] Comment on above: Performed By: #### S EDR #### [facility] [address] [place] [address] Dr. Judy Ramirez IG % 0.2 % Normal 0.0-0.5 [facility] Comment on above: Performed By: #### S EDR #### [facility] [address] [place] [address] Dr. Judy Ramirez LYMPH # 2.1 103/ul Normal 1.2-3.8 [facility] Comment on above: Performed By: #### S EDR #### [facility] [address] [place] [address] Dr. Judy Ramirez Lymphocytes/100 WBC (Bld) 37.8 % Normal 20.5-60.0 [facility] Comment on above: Performed By: #### S EDR #### [facility] [address] [place] [address] Dr. Judy Ramirez MANUAL DIFF REQ NO Normal [facility] Comment on above: Performed By: #### S EDR #### [facility] [address] [place] [address] Dr. Judy Ramirez MCH (RBC) [Entitic mass] 28.4 pg Normal 26.7-34.0 [facility] Comment on above: Performed By: #### S EDR #### [facility] [address] [place] [address] Dr. Judy Ramirez MCHC (RBC) [Mass/Vol] 33.6 g/dL Normal 29.9-35.2 [facility] Comment on above: Performed By: #### S EDR #### [facility] [address] [place] [address] Dr. Judy Ramirez MCV (RBC) [Entitic vol] 84.6 fL Normal 81.0-99.0 [facility] Comment on above: Performed By: #### S EDR #### [facility] [address] [place] [address] Dr. Judy Ramirez MONO # 0.3 103/ul Normal 0.3-0.8 [facility] Comment on above: Performed By: #### S EDR #### [facility] [address] [place] [address] Dr. Judy Ramirez Monocytes/100 WBC (Bld) 5.5 % Normal 1.7-12.0 [facility] Comment on above: Performed By: #### S EDR #### [facility] [address] [place] [address] Dr. Judy Ramirez NEUT # 2.9 103/ul Normal 1.4-6.5 [facility] Comment on above: Performed By: #### S EDR #### [facility] [address] [address] [address] Judy Ramirez Neutrophils/100 WBC (Bld) 53.4 % Normal 43.0-75.0 [facility] Comment on above: Performed By: #### S EDR #### [facility] [address] [address] [address] Judy Ramirez Platelet mean volume (Bld) [Entitic vol] 9.4 fL Critically low 9.5-13.5 [facility] Comment on above: Performed By: #### S EDR #### [facility] [address] [address] [address] Judy Ramirez PLT 274 103/ul Normal 150-450 [facility] Comment on above: Performed By: #### S EDR #### [facility] [address] [address] [address] Judy Raimrez RBC 4.86 106/ul Normal 4.20-5.40 [facility] Comment on above: Performed By: #### S EDR #### [facility] [address] [address] [address] Judy Ramirez WBC 5.5 103/ul Normal 4.0-11.0 [facility] Comment on above: Performed By: #### S EDR #### [facility] [address] [place] [address] Dr. Judy Ramirez LIPASEon 05-23-2022 Lipase [Catalytic activity/Vol] 97.0 U/L Normal 73.0-393.0 [facility] Comment on above: Performed By: #### U ACSIND, UMICRO #### [facility] [address] [address] [address] Judy Ramirez LIPID PROFILEon 05-23-2022 CHOL-HDL RATIO NORM SEE BELOW Normal [facility] Comment on above: Result Comment: 3.3 - 4.4 LOW RISK 4.4 - 7.1 AVERAGE RISK 7.1 - 11.0 MODERATE RISK >11.0 HIGH RISK Performed By: #### S EDR #### [facility] [address] [address] [address] Judy Ramirez Cholesterol [Mass/Vol] 203 mg/dL Critically high <=200 [facility] Comment on above: Performed By: #### S EDR #### [facility] [address] [address] [address] Judy Ramirez Cholesterol in HDL [Mass/Vol] 48 mg/dL Normal 40-60 [facility] Comment on above: Performed By: #### S EDR #### [facility] [address] [address] [address] Judy Ramirez Cholesterol in LDL [Mass/Vol] 130.0 mg/dL Normal [facility] Comment on above: Performed By: #### S EDR #### [facility] [address] [address] [address] Judy Ramirez Cholesterol.total/Cho lesterol in HDL [Mass ratio] 4.2 {ratio} Normal [facility] Comment on above: Performed By: #### S EDR #### [facility] [address] [address] [address] Judy Ramirez HDL NORMAL > or = 60 mg/dl - LO W CARDIOVASCULAR RISK <40 mg/dl - HIGH CARDIOVASCULAR RISK Normal [facility] Comment on above: Performed By: #### S EDR #### [facility] [address] [address] [address] Judy Ramirez LDL CALC NORMAL SEE BELOW Normal [facility] Comment on above: Result Comment: <100 mg/dl OPTIMAL 100 - 129 mg/dl NEAR OR ABOVE OPTIMAL 130 - 159 mg/dl BORDERLINE HIGH 160 - 189 mg/dl HIGH >190 mg/dl VERY HIGH Performed By: #### S EDR #### [facility] [address] [address] [address] Judy Ramirez Triglyceride [Mass/Vol] 125 mg/dL Normal <=150 [facility] Comment on above: Performed By: #### S EDR #### [facility] [address] [address] [address] Judy Ramirez VLDL CALC 25.0 mg/dL Normal [facility] Comment on above: Performed By: #### S EDR #### [facility] [address] [place] [address] Dr. Judy Ramirez PROF 14(COMP METB)on 023 Albumin [Mass/Vol] 3.5 g/dL Normal 3.4-5.0 [facility] Comment on above: Performed By: #### U ACSIND, UMICRO #### [facility] [address] [place] [id number] Dr. Judy Ramirez Albumin/Globulin [Mass ratio] 0.9 {ratio} Normal [facility] Comment on above: Performed By: #### U ACSIND, UMICRO #### [facility] [address] [place] [address] Dr. Judy Ramirez ALP [Catalytic activity/Vol] 86 U/L Normal 46-116 [facility] Comment on above: Performed By: #### U ACSSIDDHARTHA, UMICRO #### [facility] [address] [place] [address] Dr. Judy Ramirez ALT [Catalytic activity/Vol] 32 U/L Normal 14-59 [facility] Comment on above: Performed By: #### U ACSSIDDHARTHA, UMICRO #### [facility] [address] [place] [address] Dr. Judy Ramirez Anion gap [Moles/Vol] 9.6 mmol/L Normal [facility] Comment on above: Performed By: #### U ACSSIDDHARTHA, UMICRO #### [facility] [address] [place] [address] Dr. Judy Ramirez AST [Catalytic activity/Vol] 19 U/L Normal 15-37 [facility] Comment on above: Performed By: #### U ACSIND, UMICRO #### [facility] [address] [place] [address] Dr. Judy Ramirez Bilirubin [Mass/Vol] 0.5 mg/dL Normal 0.2-1.0 [facility] Comment on above: Performed By: #### U ACSIND, UMICRO #### [facility] [address] [place] [address] Dr. Judy Ramirez Calcium [Mass/Vol] 9.3 mg/dL Normal 8.5-10.1 [facility] Comment on above: Performed By: #### U ADITYA MARTINEZRO #### [facility] [address] [address] [address] Judy Ramirez Chloride [Moles/Vol] 106 mmol/L Normal 98-107 [facility] Comment on above: Performed By: #### U ADITYA MARTINEZRO #### [facility] [address] [address] [address] Judy Ramirez CO2 [Moles/Vol] 30.7 mmol/L Normal 21.0-32.0 [facility] Comment on above: Performed By: #### ADITYA RATLIFFRO #### [facility] [address] [place] [address] Dr. Judy Ramirez Creatinine [Mass/Vol] 0.92 mg/dL Normal 0.55-1.02 [facility] Comment on above: Performed By: #### ADITYA RATLIFFRO #### [facility] [address] [place] [address] Dr. Judy Ramirez EGFR-AF TONGAN >60 Normal >=60 [facility] Comment on above: Performed By: #### ADITYA RATLIFFRO #### [facility] [address] [place] [address] Dr. Judy Ramirez EGFR-NON AF TONGAN >60 Normal >=60 [facility] Comment on above: Performed By: #### ADITYA RATLIFFRO #### [facility] [address] [place] [address] Dr. Judy Ramirez Globulin (S) [Mass/Vol] 3.9 g/dL Normal [facility] Comment on above: Performed By: #### U ADITYA MARTINEZRO #### [facility] [address] [place] [address] Dr. Judy Ramirez Glucose [Mass/Vol] 95 mg/dL Normal 74-106 [facility] Comment on above: Performed By: #### U ADITYA MARTINEZRO #### [facility] [address] [place] [address] Dr. Judy Ramirez Potassium [Moles/Vol] 4.3 mmol/L Normal 3.5-5.1 [facility] Comment on above: Performed By: #### U ACSSIDDHARTHA, UMICRO #### [facility] [address] [place] [address] Dr. Judy Ramirez Protein [Mass/Vol] 7.4 g/dL Normal 6.4-8.2 [facility] Comment on above: Performed By: #### U ACSSIDDHARTHA, UMICRO #### [facility] [address] [place] [address] Dr. Judy Ramirez Sodium [Moles/Vol] 142 mmol/L Normal 136-145 [facility] Comment on above: Performed By: #### U ACSSIDDHARTHA, UMICRO #### [facility] [address] [place] [address] Dr. Judy Ramirez Urea nitrogen [Mass/Vol] 17.0 mg/dL Normal 7.0-18.0 [facility] Comment on above: Performed By: #### U ACSSIDDHARTHA, UMICRO #### [facility] [address] [place] [address] Dr. Judy Ramirez Urea nitrogen/Creatinine [Mass ratio] 18.5 mg/mg Normal [facility] Comment on above: Performed By: #### U ACSSIDDHARTHA, ICRO #### [facility] [address] [place] [address] Dr. Judy Ramirez UA RANDOM W/MICROSCOPICon BACTERIA NONE SEEN Normal NONE SEEN [facility] Comment on above: Performed By: #### P TT, PT #### [facility] [address] [place] [address] Dr. Judy Ramirez Bilirubin Ql (U) Negative Normal NEGATIVE [facility] Comment on above: Performed By: #### P TT, PT #### [facility] [address] [place] [address] Dr. Judy Ramirez CAST NONE SEEN Normal NONE SEEN [facility] Comment on above: Performed By: #### P TT, PT #### [facility] [address] [place] [address] Dr. Judy Ramirez Clarity (U) CLEAR Normal CLEAR [facility] Comment on above: Performed By: #### P TT, PT #### [facility] [address] [place] [address] Dr. Judy Ramirez Color (U) LT. YELLOW Normal YELLOW [facility] Comment on above: Performed By: #### P TT, PT #### [facility] [address] [place] [address] Dr. Judy Ramirez Crystals LM Nom (Urine sed) NONE SEEN Normal NONE SEEN [facility] Comment on above: Performed By: #### P TT, PT #### [facility] [address] [place] [address] Dr. Judy Ramirez Epithelial cells LM Ql (Urine sed) FEW Abnormal NONE SEEN /RARE [facility] Comment on above: Performed By: #### P TT, PT #### [facility] [address] [place] [address] Dr. Judy Ramirez Glucose Ql (U) Negative Normal NEGATIVE [facility] Comment on above: Performed By: #### P TT, PT #### [facility] [address] [place] [address] Dr. Judy Ramirez Hemoglobin Ql (U) TRACE-INTACT Abnormal NEGATIVE [facility] Comment on above: Performed By: #### P TT, PT #### [facility] [address] [place] [address] Dr. Judy Ramirez Ketones Ql (U) Negative Normal NEGATIVE [facility] Comment on above: Performed By: #### P TT, PT #### [facility] [address] [place] [address] Dr. Judy Ramirez LEUKOCYTES Negative Normal NEGATIVE [facility] Comment on above: Performed By: #### P TT, PT #### [facility] [address] [place] [address] Dr. Judy Ramirez MUCOUS NONE SEEN Normal NONE SEEN [facility] Comment on above: Performed By: #### P TT, PT #### [facility] [address] [place] [address] Dr. Judy Ramirez Nitrite Ql (U) Negative Normal NEGATIVE [facility] Comment on above: Performed By: #### P TT, PT #### [facility] [address] [place] [address] Dr. Judy Ramirez pH (U) 7.0 [pH] Normal 5-9 [facility] Comment on above: Performed By: #### P TT, PT #### [facility] [address] [place] [address] Dr. Judy Ramirez RBC NONE SEEN Abnormal 0-2 [facility] Comment on above: Performed By: #### P TT, PT #### [facility] [address] [place] [address] Dr. Judy Ramirez SPEC GRAVITY 1.010 Normal 1.005-<=1.0 25 [facility] Comment on above: Performed By: #### P TT, PT #### [facility] [address] [place] [address] Dr. Judy Ramirez UA PROTEIN Negative Normal NEGATIVE/ TRACE [facility] Comment on above: Performed By: #### P TT, PT #### [facility] [address] [place] [address] Dr. Judy Ramirez Urobilinogen Qn (U) 0.2 {Evelyn'U}/dL Normal 0.2 - 1. 0 [facility] Comment on above: Performed By: #### P TT, PT #### [facility] [address] [place] [address] Dr. Judy Ramirez WBC NONE SEEN Normal NONE SEEN [facility] Comment on above: Performed By: #### P TT, PT #### [facility] [address] [place] [address] Dr. Judy Ramirez CULTURE THROATon 12-24-2021 CULTURE THROAT Isolate 1 Streptococcus dysgalactiae Moderate growth of ORGANISM 1 Streptococcus dysgalactiae ANTIBIOTIC M.I.C RX STATUS Benzylpenicillin <=0.06 S F Ampicillin <=0.25 S F Cefotaxime <=0.12 S F Ceftriaxone <=0.12 S F Levofloxacin 0.5 S F Erythromycin <=0.12 S F Clindamycin <=0.25 S F Linezolid <=2 S F Vancomycin 0.5 S F Tetracycline >=16 R F Normal The [facility] Comment on above: Performed By: #### S EDR #### [facility] [address] [place], [place] [address] Dr. Judy Ramirez Covid-19 PCR ([facility])on 12-13 SARS-CoV-2 (COVID-19) RNA CAROLA+probe Ql (Unsp spec) Not detected Normal NOT DETECTED The [facility] Comment on above: Result Comment: This test is not yet approved or cleared by the [place] FDA. When there are no FDA-approved or cleared tests available, and other criteria are met, FDA can make tests available under an emergency access mechanism called an Emergency Use Authorization (EUA). The EUA for this test is supported by the [place] of Health and Human Service's (HHS's) declaration that circumstances exist to justify the emergency use of in vitro diagnostics for the detection and/or diagnosis of the virus that causes COVID-19. This EUA will remain in effect (meaning this test can be used) for the duration of the COVID-19 declaration justifying emergency of IVDs, unless it is terminated or revoked by FDA (after which the test may no longer be used). When diagnostic testing is negative, the possibility of a false negative should be considered in the context of a patient's recent exposures and the presence of clinical signs and symptoms consistent with SARS-CoV-2. Performed By: #### U ACSIND, UMICRO #### [facility] [address] [place], [place] [address] Dr. Judy Ramirez COVID-19 Positive/NegativeOr dered By: Luis M Juarez on 08-13-2021 SARS-CoV-2 (COVID-19) N gene CAROLA+probe Ql (Resp) Negative Negative [facility] Comment on above: Testing for SARS-CoV -2 by RT-PCR This test was developed and its performance characteristics determined by [employer] ([place]) and validated at the [facility]. This test has not been FDA cleared or approved. This test has been authorized by FDA under an Emergency Use Authorization (EUA). This test has been validated in accordance with the FDA's Guidance Document (Policy for Diagnostics Testing in Laboratories Certified to Perform High Complexity Testing under CLIA prior to Emergency Use Authorization for Coronavirus Disease-2019 during the Public Health Emergency) issued on June 15, 2019. This test is only authorized for the duration of time the declaration that circumstances exist justifying the authorization of the emergency use of in vitro diagnostic tests for detection of SARS-CoV-2 virus and/or diagnosis of COVID-19 infection under section 564(b)(1) of the Act, 21 U.S.C. 360bbb-3(b)(1), unless the authorization is terminated or revoked sooner. Vital Signs Date Time Vital Sign Value Performing Clinician Facility 04-20-2023 15:47-0500 Body height 167.6 cm Zonia Pak DPM Work Phone: [facility] 04-20-2023 15:47-0500 Body mass index (BMI) [Ratio] 34.22 kg/m2 Zonia Pak DPM Work Phone: [facility] 04-20-2023 15:47-0500 Body weight 96.16 kg Zonia Reyes DPM Work Phone: [facility] 12-28-2022 14:59-0400 Blood Pressure Location Anand LOPEZ [facility] 12-28-2022 14:59-0400 Diastolic blood pressure 86 mm[Hg] Anand LOPEZ [facility] 12-28-2022 14:59-0400 Heart rate 80 /min Anand LOPEZ [facility] 12-28-2022 14:59-0400 Respiratory rate 16 /min Anand LOPEZ [facility] 12-28-2022 14:59-0400 Systolic blood pressure 121 mm[Hg] Anand LOPEZ [facility] 09-30-2022 09:18-0400 Diastolic blood pressure 62 mm[Hg] [facility] 09-30-2022 09:18-0400 Heart rate 69 /min [facility] 09-30-2022 09:18-0400 Respiratory rate 16 /min [facility] 09-30-2022 09:18-0400 SaO2% (BldA) [Mass fraction] 98 % [facility] 09-30-2022 09:18-0400 Systolic blood pressure 96 mm[Hg] [facility] 09-30-2022 07:14-0400 Body height 165.1 cm [facility] 09-30-2022 07:14-0400 Body temperature 97.6 [degF] [facility] 09-30-2022 07:14-0400 Body weight 88.45 kg [facility] 08-13-2022 15:00-0400 Body weight 107 mg [facility] 08-15-2021 09:15-0400 Diastolic blood pressure 64 mm[Hg] DO Luis M Hykes Work Phone: [facility] 08-15-2021 09:15-0400 Heart rate 80 /min DO Luis M Hykes Work Phone: [facility] 08-15-2021 09:15-0400 Respiratory rate 20 /min DO Luis M Hykes Work Phone: [facility] 08-15-2021 09:15-0400 SaO2% (BldA) [Mass fraction] 100 % DO Luis M Hykes Work Phone: [facility] 08-15-2021 09:15-0400 Systolic blood pressure 112 mm[Hg] DO Luis M Hykes Work Phone: [facility] 08-15-2021 07:15-0400 Body height 166.37 cm DO Luis M Hykes Work Phone: [facility] 08-15-2021 07:15-0400 Body mass index (BMI) [Ratio] 32.8 kg/m2 DO Luis M Hykes Work Phone: [facility] 08-15-2021 07:15-0400 Body temperature 98.1 [degF] DO Luis M Juarez Work Phone: [facility] 08-15-2021 07:15040 Body weight 90.71 kg DO Luis M Juarez Work Phone: [facility] Encounters Encounter Date Encounter Type Care Provider Facility Start: 01-07-2024 ambulatory Anand LOPEZ Facili ty:[facility] Start: 08-02-2023 ambulatory Kristine stack PA-C Facility:[facility] Start: 06-21-2023 ambulatory Kristine stack PA-C Facility:[facility] Start: 05-17-2023 End: 05-17-2023 ambulatory KAMILLA AICHHOLZ Not Available Start: 04-28-2023 Refill Kamilla Aichholz PRODUCTION SUPPORT CONSULTANT Work Phone: [facility] Comment on above: Gastroesophageal ref lux disease without esophagitis Start: 04-20-2023 End: 04-20-2023 ambulatory ZONIA PAK Not Available Start: 04-20-2023 End: 04-20-2023 Office outpatient visit 15 minutes Zonia Pak DPM Work Phone: [facility] Comment on above: Onychomycosis (Prima ry Dx); Nail dystrophy; Pain in toes of both feet Start: 04-06-2023 End: 04-15-2023 ambulatory ISABELLE BARRIOS [facility] Start: 03-18-2023 End: 03-18-2023 ambulatory KAMILLA AICHHOLZ Not Available Start: 01-19-2023 End: 01-20-2023 ambulatory Rose Pace Facility:[facility] [place] [place] Start: 01-19-2023 End: 01-19-2023 Patient encounter procedure Rose Pace [facility] Start: 12-28-2022 End: 12-29-2022 ambulatory Anand LOPEZ Facility:[facility] Start: 12-28-2022 End: 12-28-2022 Patient encounter procedure Anand LOPEZ [facility] Start: 09-30-2022 End: 09-30-2022 ambulatory Imad Asaad Facility:[facility] Start: 09-30-2022 End: 09-30-2022 Admission to same day surgery center [facility] Work Phone: Start: 09-30-2022 End: 09-30-2022 ambulatory NON STAFF [facility] Work Phone: Start: 08-31-2022 End: 08-31-2022 ambulatory Imad Asaad Facility:[facility] Start: 08-31-2022 End: 08-31-2022 ambulatory NON STAFF [facility] Work Phone: Start: 08-31-2022 End: 08-31-2022 Patient encounter procedure [facility] [place] Work Phone: Start: 08-13-2022 End: 08-14-2022 ambulatory NON STAFF [facility] Work Phone: Start: 08-13-2022 End: 08-13-2022 Departed Referred [facility] [place] Work Phone: Start: 08-11-2022 End: 08-15-2022 Pre-admission assessment Rose Pace [facility] Start: 08-10-2022 Encounter for preprocedural laboratory examination DR ANAND LOPEZ . [facility] Start: 08-07-2022 End: 08-08-[address] ANAND LOPEZ . Facility:[facility] Start: 08-07-2022 End: 08-08-2022 Encounter for preprocedural laboratory examination DR ANAND LOPEZ . Facility:[facility] Start: 07-29-2022 End: 07-30-[address] ANAND LOPEZ . Facility:[facility] Start: 07-27-2022 End: 07-27-2022 ambulatory Rose Pace Facility:[facility] Start: 07-27-2022 End: 07-27-2022 ambulatory NON STAFF [facility] Work Phone: Start: 07-27-2022 End: 07-27-2022 Patient encounter procedure [facility] [place] Work Phone: Start: 07-08-2022 End: 07-09-2022 ambulatory ELECT[employer] S[employer] WIRER HELPER KAMILLA AICMeghanaRADHAZ Facility:[facility] Start: 07-05-2022 Encounter for preprocedural cardiovascular examination DR ANAND LOPEZ . [facility] Start: 07-05-2022 Encounter for preprocedural laboratory examination DR ANAND LOPEZ . [facility] Start: 07-02-2022 End: 07-03-[address] ANAND LOPEZ . Facility:[facility] Start: 06-29-2022 End: 06-30-[address] ANAND LOPEZ . Facility:[facility] Start: 06-29-2022 End: 06-30-2022 Encounter for preprocedural cardiovascular examination DR ANAND LOPEZ . Facility:[facility] Start: 06-22-2022 End: 06-23-2022 ambulatory Anand LOPEZ Facility:[facility] Start: 06-20-2022 End: 06-21-[address] ANAND LOPEZ . Facility:[facility] Start: 06-19-2022 ambulatory Anand LOPEZ Facility :[facility] Start: 06-16-2022 End: 06-17-2022 ambulatory ELECTR[employer] S[employer] WIRER HELPER KAMILLA BETHANYMeghanaRADHAZ Facility:[facility] Start: 06-03-2022 End: 06-04-2022 ambulatory ELECTRICAL SIGN WIRER HELPER KAMILLA AICHHOLZ Facility:[facility] Start: 05-23-2022 End: 05-24-2022 ambulatory ELECTRICAL SIGN WIRER HELPER KAMILLA AICHHOLZ Facility:[facility] Start: 12-22-2021 End: 12-22-2021 ambulatory SHAIKH Meghana NEWTON Facility:[facility] Start: 08-15-2021 End: 08-15-2021 Admission to same day surgery center DO Luis M Juarez Work Phone: [facility] Start: 08-13-2021 End: 08-13-2021 Patient encounter procedure DO Luis M Juarez Work Phone: [facility]-Pre-Surgical Testing Procedures Date Procedure Procedure Detail Performing Clinician Start: 09-30-2022 Esophagogastroduodenoscopy Start: 08-31-2022 Radionuclide gastric emptying study Start: 08-13-2022 Rigid cystoscopy Anand LOPEZ Start: 07-27-2022 MRI of head Start: 07-02-2022 Extracorporeal shockwave lithotripsy of calculus of kidney Anand LOPEZ Start: 06-16-2022 Mammography Zonia Pak DPM Work Phone: Start: 08-15-2021 Esophagogastroduodenoscopy DO Luis M nunes Work Phone: Start: 08-15-2021 Colonoscopy Zonia Pak DPM Work Phone: Start: 01-02-2020 Microscopic observation [Identifier] in Cervix by Cyto stain Zonia Pak DPM Work Phone: Cholecystectomy [facility] [place] [facility] Hysterectomy Rose [place] el Plan of Treatment Date Care Activity Detail Author Start: 08-16-2031 Screening for malignant neoplasm of colon [facility] Start: 06-17-2023 Screening for malignant neoplasm of breast Mammogram [facility] Start: 05-17-2023 End: 05-17-2023 Patient encounter procedure 05/17/2023 7:00 PM EST Office Visit [facility] [address] [place] [phone] Kamilla Patton NP [address] [place] [phone] [facility] Start: 04-29-2023 End: 04-29-2023 Patient encounter procedure 04/29/2023 6:00 PM EST Office Visit [facility] [address] [place] [phone] Kamilla Patton, PRODUCTION SUPPORT CONSULTANT [address] [place] [phone] [facility] Start: 01-01-2023 Screening for malignant neoplasm of cervix Pap Smear [facility] Start: 09-30-2022 [facility] Start: 07-27-2022 MR Unspecified body region [facility] Start: 07-27-2022 MRI of head MR head/brain wo/w con [facility] Start: 2001 Screening for malignant neoplasm of cervix HPV/Cotest [facility] Start: 1971 Screening for malignant neoplasm of colon [facility] Bilirubin measurement [facility] Body weight [facility] Calcium carbonate/To mirna in [facility] Calcium hydrogen shruti sphate dihydrate/Total in [facility] Calcium oxalate monohydrate/Total in [facility] Calcium phosphate level [facility] Calculus analysis wi th calculus photography [Interpretation] in [facility] Calculus analysis, qualitative [facility] Calculus analysis, quantitative [facility] Calculus analysis, quantitative, infrared spectroscopy [facility] Cellular material [Mass/mass] of [place] by Estimated [facility] [facility] Cholesterol [Mass/vo lume] in Serum or Plasma [facility] Cystine measurement [facility] Determination of annie culus chemical composition [facility] Evaluation procedure [facility] Hydroxyapatite [Ener gy Difference] in 24 hour Urine [facility] Laboratory data interpretation [facility] Newberyite/Total in Stone Fi relands [facility] Patient Education Esophagitis Hi atal Hernia (DC) Stomach polyps [facility] Work Phone: Specimen source subj ect [Type] [facility] Triamterene measurement [facility] Triple phosphate/Tot al in [facility] Immunizations Immunization Date Immunization Notes Care Provider Fa cility 12-27-2022 influenza virus vaccine, unspecified formulation Zonia Pak DPM Work Phone: [facility] 10-09-2021 SARS-CoV-2 mRNA (krcbwfnlsyd-twvl-hxci ose) vaccine Rose Windnagel [facility] 02-13-2021 COVID-19 mRNA, Comirnaty (Pfizer) DO Luis M Joota Work Phone: [facility] 05-08-2020 COVID-19 mRNA, Comirnaty (Pfizer) DO Luis M Joota Work Phone: [facility] Comment on above: Result Comment: 2022: TPV40 04-06-2020 SARS-CoV-2 (COVID-19 ) mRNA BNT-162b2 vax Rose Windnagel [facility] Comment on above: Result Comment: 2022: TPV40 04-02-2020 COVID-19 mRNA, Comirnaty (Pfizer) DO Luis M Joota Work Phone: [facility] Comment on above: Result Comment: 2022: TPV40 07-17-2009 tetanus toxoid, reduced diphtheria toxoid, and acellular pertussis vaccine, adsorbed Rose Windnagel [facility] Payers Date Payer Category Payer Self-pay [id number] 2020 Unknown [id number] 1970 Unknown [id number] 2.16.84 0.1.539953.3.579.2.593 1971 Unknown [id number] 2.16.84 0.1.823313.3.579.2.593 1971 Unknown [id number] 2.16.84 0.1.690869.3.579.2.593 1971 Unknown [id number] 2.16.84 0.1.467257.3.579.2.593 1971 Unknown [id number] 2.16.84 0.1.230205.3.579.2.593 1971 Unknown [id number] 2.16.84 0.1.702746.3.579.2.593 1971 Unknown [id number] 2.16.84 0.1.993546.3.579.2.593 1971 Unknown [id number] 2.16.84 0.1.017347.3.579.2.593 1971 Unknown [id number] 2.16.84 0.1.556776.3.579.2.593 1971 Unknown [id number] 2.16.84 0.1.024325.3.579.2.593 1971 Unknown [id number] 2.16.84 0.1.289148.3.579.2.593 1971 Unknown [id number] 2.16.8 40.1.869730.3.579.2.727 1971 Unknown [id number] 2.16.8 40.1.699360.3.579.2.727 1971 Unknown [id number] 2.16.8 40.1.955053.3.579.2.727 1971 Unknown [id number] 2.16.8 40.1.967460.3.579.2.727 1971 Unknown [id number] 2.16.8 40.1.047761.3.579.2.727 1971 Unknown [id number] 2.16.8 40.1.877465.3.579.2.727 1971 Unknown [id number] 2.16.8 40.1.379614.3.579.2.1286 1971 Unknown [id number] 2.16.84 0.1.472788.3.579.2.1259 1971 Unknown [id number] 2.16.84 0.1.211602.3.579.2.1259 1971 Unknown [id number] 2.16.840 .1.894493.3.579.2.1259 1971 Unknown [id number] 2.16. 840.1.450802.3.579.2.196 1971 Unknown [id number] 2.16. 840.1.933834.3.579.2.196 1959 Unknown [id number] Unknown [id number] 2.16.8 40.1.902466.3.579.2.531 Unknown [id number] 2.16.8 40.1.431622.3.579.2.531 Unknown [id number] 2.16.8 40.1.832516.3.579.2.531 Unknown [id number] 2.16.8 40.1.601864.3.579.2.531 Social History Date Type Detail [facility] Work Phone: Start: 1970 Sex Assigned At Female [facility] Start: 06-22-2022 End: 04-20-2023 Tobacco smoking status Never smoked tobacco (finding) [facility] Tobacco smoking status Never [facility] Start: 03-17-2023 End: 04-20-2023 Sex Assigned At Female [facility] Start: 04-20-2023 Tobacco use and exposure Smokeless tobacco non-user [facility] Start: 04-20-2023 Alcohol intake Ex-drinker (finding) [facility] Start: 03-17-2023 End: 04-20-2023 Alcohol intake [facility] Within the last year , have you been afraid of your partner or ex-partner? No [facility] Are you now , , , , never or living with a partner? [facility] How often to you hav e a drink containing alcohol? Monthly or less [facility] How many standard drinks containing alcohol do you have on a typical day? 1 or 2 [facility] How often do you hav e 6 or more drinks on 1 occasion? Never [facility] Do you feel stress - tense, restless, nervous, or anxious, or unable to sleep at night because your mind is troubled all the time - these days [OSQ] Only a little [facility] (I/We) worried wheth er (my/our) food would run out before (I/we) got money to buy more. Never true [facility] Start: 12-18-2022 Alcohol Comment monthly [facility] Start: 02-08-2023 Gender identity Identifies as female gender (finding) [facility] Start: 02-08-2023 Sexual orientation Heterosexual (finding) [facility] Goals Date Patient Goal Desired Activity /State Functional Status Date Assessment Result Facility 12-28-2022 Functional Status N/A [facility] Clinical Notes 08-15-2021 to 04-20-2023 Zonia Pak DPM - 04/20/2023 3:45 PM EST Note Date & Type Note Facility 04-20-2023 History of Present illness Narrative Images from the original note were not included. Subjective Patient ID: Cinthia Badillo is a 53 y.o. female who presents for Follow-up (Established pt presents today for 4 month lamisil fuv. Pt states she hasn't noticed much of a difference in her nails. Used topical medication as well. ). HPI Patient presents for follow up of Lamisil treatment for right hallux nail fungus. She is unsure if she is made any improvements in the nail. She states she did complete the 90 days of treatment. She tolerated the medication well. She is concerned about the left lateral hallux nail as well as she is noted some discoloration recently Review of Systems Medications Current Outpatient Medications: amitriptyline (Elavil) 25 MG tablet, TAKE 1 TABLET BY MOUTH EVERY DAY AT BEDTIME FOR 30 DAYS, Disp: , Rfl: zonisamide (Zonegran) 25 MG capsule, TAKE 1 CAPSULE BY MOUTH TWICE DAILY WITH 50 MG CAPS TO EQUAL 75 MG, Disp: , Rfl: zonisamide (Zonegran) 50 MG capsule, Take 50 mg by mouth in the morning and 50 mg before bedtime., Disp: , Rfl: pantoprazole (ProtoNix) 20 MG EC tablet, Take 1 tablet (20 mg) by mouth in the morning and 1 tablet (20 mg) before bedtime., Disp: 60 tablet, Rfl: 1 Allergies Penicillins Past Surgical History Past Surgical History: Procedure Laterality Date APPENDECTOMY 1991 or CHOLECYSTECTOMY HERNIA REPAIR 1974 HYSTERECTOMY 2019 ovaries still present, non cancerous KNEE ARTHROSCOPY W/ DEBRIDEMENT Right 1990 x2, 2010 OVARY SURGERY 1991 Ovarian Resection - [place] Family History Family History Problem Relation Name Age of Onset Hypertension Mother Mary Arthritis Mother Mary Diabetes Mother Mary Hearing loss Mother Mary Hyperlipidemia Father Americo Hypertension Father Americo Heart disease Father Americo Diabetes Father Americo COPD Father Americo Breast cancer Maternal Grandmother Stomach cancer Paternal Grandfather Objective Physical Exam Constitutional: Appearance: Normal appearance. HENT: Head: Normocephalic and atraumatic. Cardiovascular: Comments: Pedal pulses: DP 2/4 bilateral, PT 2/4 bilateral. Skin temp is warm to warm. Varicosities: Hair growth: Pulmonary: Effort: Pulmonary effort is normal. Musculoskeletal: Right lower leg: No edema. Left lower leg: No edema. Comments: ROM: AJ and STJ ROM are normal and pain free. ROM at the 1st MTPJ is full and free of pain and crepitus MUSCLE STRENGTH: Dorsiflexion, plantarflexion, inversion, eversion are 5/5 b/l. PAIN: Pain at medial eminence 1st met head bilaterally, pain at right hallux nail DEFORMITIES: Mild HAV deformity is noted bilaterally. Mild medial prominence of 1st met head, with slight lateral deviation of great toe. There is pain over the 1st Met head especially with shoes. Skin: General: Skin is warm and dry. Capillary Refill: Capillary refill takes 2 to 3 seconds. Findings: No bruising or erythema. Comments: Webspaces are clean and dry HYPERKERATOTIC LESION: none NAIL PATHOLOGY: right distal lateral hallux nail is lysed from the nailbed. The nail is 3 mm thick, yellow, white with fungal debris. Mild dystrophy of the nail. There is proximal clear space, which is now 6mm (was 3mm at last vist). The entire central medial nail are unaffected. Proximal lateral nail there is new nail growth noted, pt states she may have trimmed the lateral border of the nail back when it was loose and infected with fungus. The new nail growth at the proximal lateral nail bed is raising the cuticle. The left distal lateral hallux nail is lysed from nail bed, but no discoloration or subungal debris noted. Skin texture and turgor: normal Neurological: Mental Status: She is alert and oriented to person, place, and time. Comments: Light touch sensation intact Assessment/Plan ICD-10-CM 1. Onychomycosis B35.1 2. Nail dystrophy L60.3 3. Pain in toes of both feet M79.674 M79.675 Patient has completed her 90 day course of oral Lamisil. I explained to her that the proximal clear space of the right hallux nail, lateral border has improved since her last visit. This is encouraging. She also has new nail growth noted at the proximal lateral corner of the nail the which is currently raising the cuticle. I encouraged her to massage this tissue at the lateral nail fold away from the nail plate to make room for the new nail. Reiterated that a toenail growth cycle takes 9-12 months. She should monitor the area and reassess in 4 months. If she is noted improvement and would like to repeat the 90 day course of Lamisil we can do so at that time. The distal lateral aspect of the left hallux nail was also lysed from the nailbed, but there is no signs of fungus. Discussed that she is having lysis of both hallux nails in the same place which is concerning for her shoes being too tight, her nails abutting the toe box creating lysis of nail. She states she recently changed from a Micky type of shoe to Hey Dudes. She does report that the Toms were too tight which may have been causing the lysis of the nail. She will monitor both of these areas. She will plan to call as needed for her next appointment. This note was created with the assistance of a speech recognition program. While intending to generate a timely document that accurately reflects the content of the visit, no guarantee can be provided that every grammatical or spelling mistake has been or will be identified or corrected. Thank you for your understanding. Zonia Pak DPM documented in this encounter [facility] 12-28-2022 Hospital Discharge instructions Patient Education 12/28/2022 16:01:02 Dietary Guidelines to Help Prevent Kidney Stones Dietary Guidelines to Help Prevent Kidney Stones Kidney stones are deposits of minerals and salts that form inside your kidneys. Your risk of developing kidney stones may be greater depending on your diet, your lifestyle, the medicines you take, and whether you have certain medical conditions. Most people can lower their chances of developing kidney stones by following the instructions below. Your dietitian may give you more specific instructions depending on your overall health and the type of kidney stones you tend to develop. What are tips for following this plan? Reading food labels Choose foods with no salt added or low-salt labels. Limit your salt (sodium) intake to less than 1,500 mg a day. Choose foods with calcium for each meal and snack. Try to eat about 300 mg of calcium at each meal. Foods that contain 200 500 mg of calcium a serving include: ?8 oz (237 mL) of milk, nahpgyv-eieqmnibvwhj-hfwhy milk, and calcium-fortifiedfruit juice. Calcium-fortified means that calcium has been added to these drinks. ?8 oz (237 mL) of kefir, yogurt, and soy yogurt. ?4 oz (114 g) of tofu. ?1 oz (28 g) of cheese. ?1 cup (150 g) of dried figs. ?1 cup (91 g) of cooked broccoli. ?One 3 oz (85 g) can of sardines or mackerel. Most people need 1,000 1,500 mg of calcium a day. Talk to your dietitian about how much calcium is recommended for you. Shopping Buy plenty of fresh fruits and vegetables. Most people do not need to avoid fruits and vegetables, even if these foods contain nutrients that may contribute to kidney stones. When shopping for convenience foods, choose: ?Whole pieces of fruit. ?Pre-made salads with dressing on the side. ?Low-fat fruit and yogurt smoothies. Avoid buying frozen meals or prepared deli foods. These can be high in sodium. Look for foods with live cultures, such as yogurt and kefir. Choose high-fiber grains, such as whole-wheat breads, oat bran, and wheat cereals. Cooking Do not add salt to food when cooking. Place a salt shaker on the table and allow each person to add his or her own salt to taste. Use vegetable protein, such as beans, textured vegetable protein (TVP), or tofu, instead of meat in pasta, casseroles, and soups. Meal planning Eat less salt, if told by your dietitian. To do this: ?Avoid eating processed or pre-made food. ?Avoid eating fast food. Eat less animal protein, including cheese, meat, poultry, or fish, if told by your dietitian. To do this: ?Limit the number of times you have meat, poultry, fish, or cheese each week. Eat a diet free of meat at least 2 days a week. ?Eat only one serving each day of meat, poultry, fish, or seafood. ?When you prepare animal protein, cut pieces into small portion sizes. For most meat and fish, one serving is about the size of the palm of your hand. Eat at least five servings of fresh fruits and vegetables each day. To do this: ?Keep fruits and vegetables on hand for snacks. ?Eat one piece of fruit or a handful of berries with breakfast. ?Have a salad and fruit at lunch. ?Have two kinds of vegetables at dinner. Limit foods that are high in a substance called oxalate. These include: ?Spinach (cooked), rhubarb, beets, sweet potatoes, and Bruneian chard. ?Peanuts. ?Potato chips, singaporean fries, and baked potatoes with skin on. ?Nuts and nut products. ?Chocolate. If you regularly take a diuretic medicine, make sure to eat at least 1 or 2 servings of fruits or vegetables that are high in potassium each day. These include: ?Avocado. ?Banana. ?[place], prune, carrot, or tomato juice. ?Baked potato. ?Cabbage. ?Beans and split peas. Lifestyle Drink enough fluid to keep your urine pale yellow. This is the most important thing you can do. Spread your fluid intake throughout the day. If you drink alcohol: ?Limit how much you use to: ?0 1 drink a day for women who are not . ?0 2 drinks a day for men. ?Be aware of how much alcohol is in your drink. In the [place] one drink equals one 12 oz bottle of beer (355 mL), one 5 oz glass of wine (148 mL), or one 1 oz glass of hard liquor (44 mL). Lose weight if told by your health care provider. Work with your dietitian to find an eating plan and weight loss strategies that work best for you. General information Talk to your health care provider and dietitian about taking daily supplements. You may be told the following depending on your health and the cause of your kidney stones: ?Not to take supplements with vitamin C. ?To take a calcium supplement. ?To take a daily probiotic supplement. ?To take other supplements such as magnesium, fish oil, or vitamin B6. Take mzta-hjl-luzepyi and prescription medicines only as told by your health care provider. These include supplements. What foods should I limit? Limit your intake of the following foods, or eat them as told by your dietitian. Vegetables Spinach. Rhubarb. Beets. Canned vegetables. Pickles. Olives. Baked potatoes with skin. Grains Wheat bran. Baked goods. Salted crackers. Cereals high in sugar. Meats and other proteins Nuts. Nut butters. Large portions of meat, poultry, or fish. Salted, precooked, or cured meats, such as sausages, meat loaves, and hot dogs. Dairy Cheese. Beverages Regular soft drinks. Regular vegetable juice. Seasonings and condiments Seasoning blends with salt. Salad dressings. Soy sauce. Ketchup. Barbecue sauce. Other foods Canned soups. Canned pasta sauce. Casseroles. Pizza. Lasagna. Frozen meals. Potato chips. Argentine fries. The items listed above may not be a complete list of foods and beverages you should limit. Contact a dietitian for more information. What foods should I avoid? Talk to your dietitian about specific foods you should avoid based on the type of kidney stones you have and your overall health. Fruits Grapefruit. The item listed above may not be a complete list of foods and beverages you should avoid. Contact a dietitian for more information. Summary Kidney stones are deposits of minerals and salts that form inside your kidneys. You can lower your risk of kidney stones by making changes to your diet. The most important thing you can do is drink enough fluid. Drink enough fluid to keep your urine pale yellow. Talk to your dietitian about how much calcium you should have each day, and eat less salt and animal protein as told by your dietitian. This information is not intended to replace advice given to you by your health care provider. Make sure you discuss any questions you have with your health care provider. Document Revised: 11/10/2021 Document Reviewed: 11/10/2021 [employer] Patient Education 2022 [employer]. Follow Up Care 07/07/2022 08:32:51 With:PATI DOHERTY, Anand Fonseca, URL Address: [facility] [address], [place] [address]- When:Within 1 Year(s) Comments:w/KUB [facility] 09-30-2022 Procedure note [facility] 06-22-2022 Note Chief Complaint Referral *Kidney Stone HPI Staff Evaluation requested by Kamilla Patton CNP due to left kidney Stone. Pt is a new pt, never before seen in our office. CT a/p done 06/03/22 due to epigastric pain that radiated to back. Showed Lt Kidney Stone. KUB then done 06/20/22. Denies Hx of Kidney Stones. Has had aching pain in Lt flank area over the yrs. Tolerable. Seems to increase with fluid intake. Denies pain/burning and visible blood in urine. Denies all other urinary complaints. History of Present Illness Tests reviewed: reviewed UA, referral records, KUB, CT scan. I have reviewed the previous health record information and history for this patient from Kamilla Patton CNP. I have reviewed and verified the staff HPI to be accurate for this encounter. There have been no associated fever, chills, flank pain, or blood in the urine. Denies any urinary infections since last encounter. Review of Systems PHQ Score Initial Depression Screen Score: 0 ROS - Provider Constitutional: denies weight loss, denies hot flashes. Eyes: denies eye problems. Gastrointestinal: denies nausea, denies vomiting. Cardiovascular: denies chest pain or angina. Integumentary: no dryness Musculoskeletal: denies musculoskeletal symptoms. ENMT: denies otolaryngeal symptoms. Respiratory: no shortness of breath. Heme/Lymph: denies easy bleeding tendency, denies easy bruising tendency. Psychiatric: no confusion, no anxiety. Genitourinary: See HPI. Physical Exam Vitals & Measurements HT: 65 in HT: 165 cm WT: 92 kg WT: 202.4 lb BMI: 33.79 General Appearance: alert , no acute distress, well nourished, well developed female. Head: normocephalic . Eyes: normal orbit and globe. ENMT: normal examination of external ears. Chest: Lungs CTA, respirations non labored . Cardiovascular: regular rate and rhythm. Abdomen: soft, non distended, no tenderness, no mass or organomegaly, no hernia. Genitourinary: bladder nonpalpable, no flank tenderness. Lymph Nodes: unremarkable palpation of the cervical area. Skin: warm, dry, no bruising. Psychiatric: cooperative, affect appropriate for age, normal judgement, euthymic mood. Assessment/Plan Cinthia is a 52 yo female new pt referred by Kamilla Patton CNP due to left kidney stone. 1. Kidney stone (N20.0: Calculus of kidney) CT AP w con 06/03/22 [facility] - Nonobstructing 7 mm left nephrolithiasis. KUB 06/20/22 [facility] - Left 9 mm stone. UA today negative for blood and infection. Has hx of bile duct stones, had CT scan. Denies hx of kidney stones. Has had aching pain in Lt flank area over the yrs, increases with fluid intake. Possible but uncommon that stone in the kidney is causing pain. Explained prophylactic surgical intervention before stone moves into ureter and causes severe pain. Explained ESWL treatment. Does not take any BTs. Is to not start any BTs prior to procedure. Recommended pt to increase fluid intake to ten to twelve 16 oz bottles a day, preferably water, clear pop, and sugar free lemonade for stone formation prevention. Discussed metabolic workup including 24 hour urine and blood work for stone prevention if pt were to have stone recurrence. PE: Nontender on either side. -Will schedule left ESWL. The procedure risks, benefits, details and treatment alternatives have been discussed with the patient. These include blood in the urine, infection, bleeding around the kidney, kidney bruising, inability to break up the stone, need for blood transfusion, blockage from stone fragments, and need for additional procedures, among others. Full informed consent has been obtained. Will order General anesthesia. Explained possibility of staged txs pending how the stone breaks. -High fluid intake 2. Left flank pain (R10.9: Unspecified abdominal pain) See #1. Follow-up With When Contact Information PATI DOHERTY, Anand Fonseca, [facility] [address], [place] [address]- Additional Instructions: schedule L ESWL Patient Education Dietary Guidelines to Help Prevent Kidney Stones I, Caroline Morales, personally scribed for Dr. Lopez on 06/22/2022 14:33:53. . Documentation recorded by the scribe, Caroline Morales, accurately reflects the services(s) I performed and decisions made by me. Authenticated by Dr. Lopez on 06/22/2022 14:41:34. Problem List/Past Medical History Ongoing Arthritis Asthma Gallstones Gastroesophageal reflux disease Kidney stone Left flank pain Historical No qualifying data Procedure/Surgical History Cholecystectomy, Hysterectomy. Medications Acidophilus Probiotic Blend, Oral, Daily amitriptyline 10 mg Tab Cranberry Melatonin, Once a day (at bedtime) multivitamin, Daily Craig-3 oral capsule Pantoprazole [address] Tab traZODONE 50 mg Tab Viactiv Soft Calcium Chews Vitamin C, Daily Allergies penicillin (Unknown) Social History Tobacco Never (less than 10 (more content not included)... [facility] Comment on above: Result Comment: Elec tronically Signed By: Anand LOPEZ MD\.br\Date and Time Signed: 06/22/22 14:41 EDT\.br\Electronically Co-Signed By: Caroline Morales\.br\Date and Time Co-Signed: 06/22/22 14:38 EDT 08-15-2021 History and physi annie note Note Date/Time August 15, 2021 8:18a m [facility] [address] [place] [id number] Gastroenterology H&P Signed Patient: Cinthia Badillo MR#: [id number] : 1970 Acct:[id number] Age/Sex: 51 / F Adm Date: 2 Loc: Room: Type: [facility] Attending Dr: Luis M Juarez DO Copies to: NON STAFF Luis M Juarez Jr, DO~ Date of Service: 08/15/2021 Gastroenterology HPI History of Present Illness HPI: Ms. Badillo is a 51 year old female with GERD and colorectal cancer screening. Currently taking pantoprazole with variable control. Never had an EGD or colonoscopy before. Negative family history. Review of Systems Review of Systems All other systems reviewed & are negative unless noted below or in HPI PMFSH Vaccinated for COVID-19?: Yes Medical History (Updated 08/15/21 @ 08:17 by Luis M Juarez DO) GERD (gastroesophageal reflux disease) Migraine Surgical History H/O arthroscopy of right knee x2 H/O: hysterectomy History of cholecystectomy Family History Grandparent Breast cancer Diabetes Mother Diabetes Father Heart disease Social History Substance Use Type: None Meds Home and Active Medications Home and Active Medications: Home Medications amitriptyline 10 mg tablet 10 mg PO DAILY 08/15/21 [History Confirmed 08/15/21] pantoprazole 40 mg tablet,delayed release 40 mg PO DAILY 08/15/21 [History Confirmed 08/15/21] Active Medications Sodium Chloride (0.9% Sodium Chloride 1,000 Ml) 1,000 mls @ 20 mls/hr IV .Q24H ZANE Stop: 08/15/22 06:59 Last Admin: 08/15/21 07:22 Dose: 20 mls/hr Documented by: Sodium Chloride (Sodium Chloride 0.9 % 10 Ml Syringe) 0 ml IV-PUSH PRN PRN PRN Reason: Flush Stop: 08/15/22 06:53 Exam Physical Exam Vital Signs: Temp Pulse Resp BP Pulse Ox 98.1 F 73 18 114/73 98 08/15/21 07:15 08/15/21 07:15 08/15/21 07:15 08/15/21 07:15 08/15/21 07:15 Const General: no acute distress Orientation: alert and oriented x3 Resp Effort & Inspection: normal respiratory effort Auscultation: clear to auscultation bilaterally Cardio Rate: regular rate Rhythm: regular rhythm GI Palpation: soft and nontender Auscultation: normal bowel sounds Extrem General: no edema A&P - Gastroenterology Assessment/Plan (1) GERD (gastroesophageal reflux disease): Code(s): K21.9 - Gastro-esophageal reflux disease without esophagitis Status: Acute (2) Screening for colorectal cancer: Code(s): Z12.11 - Encounter for screening for malignant neoplasm of colon; Z12.12 - Encounter for screening for malignant neoplasm of rectum Status: Acute Plan EGD and colonoscopy for evaluation Documented By: Luis M Juarez Jr, 08/15/21 081 5 Signed By: <Electronically signed by Luis M Juarez Jr, DO> 08/15/21 0825 [facility] Work Phone: [phone] 565-502706-03-2022 [facility] Future Appointments Appointment Date:12/28/2022 02:45:00 PM Scheduled Provider:Anand LOPEZ MD Location:[facility] Future Appointments Appointment Date:01/07/2024 08:00:00 AM Scheduled Provider:Anand LOPEZ MD Location:[facility] Appointment Type:URO Office Visit [facility] evaluation note* Diagnosis Onset Date Resolution Status GERD (gastroesophageal reflux disease) acute Screening for colorectal cancer acute [facility] Work Phone: Evaluation noteNo assessment information available [facility] Work Phone: evaluation note* Diagnosis Onychomycosis- Primary Dermatophytosis of nail Nail dystrophy Other specified disease of nail Pain in toes of both feet [facility] Diagnosis Gastroesophageal reflux disease without esophagitis Esophageal reflux documented in this [facility] Author Juani Blackwell [facility] September 30, 2022 8:25am Note Date/Time September 30, 2022 8:25 am [facility] [address] [place] [address] Gastroenterology H&P Signed Patient: Cinthia Badillo MR#: [id number] : 1970 Acct:[id number] Age/Sex: 52 / F Adm Date: 3 Loc: Room: Type: [facility] Attending Dr: Juani Blackwell MD Copies to: MD Kamilla Chin NP-C~ Date of Service: 09/30/2022 HISTORY & PHYSICAL: Patient's history with special attention to the cardiovascular, pulmonary systems and the current problem was reviewed with the patient immediately prior to the procedure. Present medications and doses reviewed in the EMR. Allergies and pertinent laboratory tests were also reviewedat this time in the EMR. The physical examination, as below, was then performed. Indication, assessment and HPI: 52-year-old female here for EGD to assess for Burdick's and evaluate etiology of early satiety and postprandial fullness Family history of GI malignancy? No PHYSICAL EXAMINATION Mouth and Pharynx : Moist mucus membranes, normal dentition Cardiac: Regular rate, regular rhythm Pulmonary: Clear to auscultation bilaterally, no wheezing Neurological: Alert and oriented x3, no focal deficits noted Abdomen: Abdomen soft, non-tender REVIEW OF SYSTEMS Constitutional: Denies malaise, fevers Cardiovascular: Denies chest pain, palpitations Respiratory: Denies shortness of breath, wheezing Gastrointestinal: Per HPI Genitourinary: Denies dysuria, polyuria Musculoskeletal: Denies joint swelling, joint stiffness Neurological: Denies numbness, tingling Integumentary: Denies rashes, skin lesions Endocrine: Denies fatigue, weight loss Written informed consent obtained from the patient. Risks (including but not limited to perforation, infection, bloating, bleeding, need for emergent surgeryand loss of life), benefits and alternatives explained and questions answered. The patient verbalized understanding. Based on history patient is an appropriate candidate for the procedure. Juani Blackwell M.D. Documented By: Juani Blackwell MD 09/30/22823 Signed By: <Electronically signed by Juani Blackwell MD> 09/30/22824 [facility] Work Phone: Hospital course Narrative No data available for this section [facility] Discharge instructions No data available for this section [facility] Discharge instructions Additional Instructions DISCHARGE INSTRUCTIONS FOR UPPER ENDOSCOPY WHAT TO EXPECT: - You may feel full, gassy or cramping after your procedure. In some cases, this may be from a few hours to a day. Walking may help relieve the discomfort. - Your throat may feel sore today from the scope that the doctor passed through your throat to visualize your stomach. Take a throat lozenge or suck on ice to ease the discomfort. - You may notice some streaks of blood in your sputum if the doctor has taken a biopsy. - You should begin to recover from anesthesia within 1 hour of the procedure, however may feel groggy for the next 24 hours. DO's AND DON'Ts: - Call your doctor right away if you have a hard abdomen, severe pain, vomiting or if you cough up large amounts of blood. - Call your doctor if you develop any rashes, hives or difficulty breathing. - If you take 81 mg aspirin for your heart it is safe to resume this medication. - If you take other blood thinner medications your doctor will instruct you when these can safely be resumed. - Do NOT drive for 24 hours. - Do NOT operate machinery such as power tools, lawn mowers, snow blowers, sewing machines, etc. for 24 hours. - Avoid alcoholic beverages and drugs for allergies, nerves, or sleep. - Do NOT stay alone. Do NOT leave your child unattended. - Do NOT make important personal or business decisions or sign any legal documents. - Eat solid foods and drink liquids in smaller amounts than usual until normal appetite returns. If you should experience an upset stomach, liquids high in sugar content (soda, Manish-Aid, non-acid juices) are recommended. - Do NOT smoke. - Do take it easy today. You need not stay in bed, but avoid strenuous activities such as jogging or working out. FOLLOW UP & RECOMMENDATIONS: -Protonix 40 mg twice daily for 12 weeks then decrease to 20 mg twice daily -Anti-reflux precautions: Weight loss Elevate head of bed 4-6 inches when sleeping Avoid eating within 3 hours before bedtime. Maintain upright posture during and after eating. Avoid clothing that is tight in the abdominal area. Minimize narcotics Avoid foods that make symptoms worse (examples include coffee, chocolate, alcohol, peppermint, and fatty foods) Do not use tobacco products Minimize alcohol use Avoid lying down for 3 hours after a meal -Notify the doctor if you have any problems. -Follow up with PCP. -Office number [phone]. [facility] Work Phone: Progress note No data available for this section [facility] Chief Complaint and Reason for Visit Chief Complaint GERD, Screening GERD, Screening Reason for Visit GERD (gastroesophage al reflux disease) Screening for colorectal cancer Chief Complaint r20.2 g43.009 h53.9 Chief Complaint r20.2 g43.009 h53.9 N20.0 Left kidney stone K21.9 R11.10 Chief Complaint r20.2 g43.009 h53.9 N20.0 Left kidney stone K21.9 R11.10 Epigastric Pain, GERD, Hx of Esophagitis Family History No Family History Records Found Relationship Condition Age at Onset Recorded Date/T jay grandparent Malignant neoplasm of breast Unknown Diabetes mellitus Unknown Not Specified Diabetes mellitus Unknown father Heart disease Unknown Advance Directives No Advanced Directives Records Found Advance Directive Response Recorded Date/ Time Advance Directives No August 08 2 10:47am Summary Purpose Additional Source Comments Care Teams (unrecognized sec tion and content) Team Status: Inactive Member Role Status Dates Luis M Juarez DO Attending Provider Active NON STAFF Primary Care Provider Active Team Status: Active Member Role Status Dates NON STAFF Primary Care Provider Active Team Status: Inactive Member Role Status Dates NON STAFF Primary Care Provider Active TISHA Flores- Attending Provider Active Team Status: Inactive Member Role Status Dates Anand Lopez MD Attending Provider Active Team Status: Active Member Role Status Dates PHYSICIAN NO FAMILY Primary Care Provider Active Team Status: Inactive Member Role Status Dates Juani Blackwell MD Attending Provider Active PHYSICIAN NO FAMILY Primary Care Provider Active Team Status: Inactive Member Role Status Dates Anand Lopez MD Attending Provider Active PHYSICIAN NO FAMILY Primary Care Provider Active Team Status: Active Member Role Status Dates Kamilla Patton Primary Care Provider Active Team Status: Inactive Member Role Status Dates Juani Blackwell MD Attending Provider Active Kamilla Patton Primary Care Provider Active 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 Machine 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 Relationship Specialty Start Date End Date Nishant Aguilar MD [address] [place] [id number] PCP - General Family Medicine 03/10/23 Kamilla Patton NP [address] [place] [phone] Nurse Practitioner Family Medicine 03/10/23 [employer]ting Machine Offbearer Relationship Specialty Start Date End Date Nishant Aguilar MD [address] [place] [phone] PCP - General Family Medicine 03/10/23 Kamilla Patton NP [address] [place] [address] Nurse Practitioner Family Medicine 03/10/23 Goals (unrecognized section and content) Goals may be documented in a n alternate sectionGoals may be documented in an alternate section No data available for this sectionGoals may be documented in an alternate section No data available for this section No data available for this section INFORMATION SOURCE (unrecogn ized section and content) DATE CREATED AUTHOR 08/24/2022 [facility] DATE CREATED AUTHOR AUTHOR'S ORGANIZ ATION 10/02/2022 [facility] DATE CREATED AUTHOR AUTHOR'S ORGANIZ ATION 02/15/2023 [facility] DATE CREATED AUTHOR AUTHOR'S ORGANIZ ATION 04/18/2023 [facility] DATE CREATED AUTHOR AUTHOR'S ORGANIZ ATION 05/18/2023 [facility] DATE CREATED AUTHOR AUTHOR'S ORGANIZ ATION 06/05/[address] [facility] Reason for Visit (unrecogniz ed section and content) Reason Comments Follow-up Established pt prese nts today for 4 month lamisil fuv. Pt states she hasn't noticed much of a difference in her nails. Used topical medication as well. FOR RECORDS PERTAINING TO PATIENTS WHO ARE OR HAVE BEEN ENROLLED IN A CHEMICAL DEPENDENCY/SUBSTANCEABUSE PROGRAM, SOME INFORMATION MAY BE OMITTED. This clinical summary was aggregated from multiple sources. Caution should be exercised in using it in the provision of clinical care. This summary normalizes information from multiple sources, and as a consequence, information in this document may materially change the coding, format and clinical context of patient data. In addition, data may be omitted in some cases. CLINICAL DECISIONS SHOULD BE BASED ON THE PRIMARY CLINICAL RECORDS. [facility] [employer], [facility]. provides no warranty or guarantee of the accuracy or completeness of information in this document.
[2023-06-30] VITALS (7 sets, daily range): BP systolic 108; BP diastolic 72; PULSE 68–94; TEMP 36.4; O2SAT 94
[2023-06-30] MEDS: AMITRIPTYLINE HCL 50 MG TABLET PO (00:25)
[2023-06-30 04:54] LABS: Hematocrit 37.9 % (36.0-48.0); Hemoglobin 12.4 g/dL (12.0-16.0); Mean Corpuscular HGB Conc 32.7 g/dL (29.9-35.2); Mean Corpuscular Hemoglobin 28.3 pg (26.7-34.0); Mean Corpuscular Volume 86.5 fL (81.0-99.0); Mean Platelet Volume 9.8 fL (9.5-13.5); Platelet Count 246 10^3/uL (150-450); Red Blood Count 4.38 10^6/uL (4.20-5.40); Red Cell Distribution Width 12.5 % (11.0-15.0); White Blood Count 6.8 10^3/uL (4.0-11.0)
[2023-06-30 05:09] LABS: BUN Creatinine Ratio 18.6; Calcium 9.2 mg/dL (8.5-10.1); Carbon Dioxide 23.7 mmol/L (21.0-32.0); Chloride 108 mmol/L (98-107); Estimated GFR (African America >60 (>=60); Estimated GFR (Non-African Ame 57 (>=60); Glucose 92 mg/dL (74-106); Potassium 3.7 mmol/L (3.5-5.1); Sodium 141 mmol/L (136-145)
[2023-06-30 05:12] LABS: Estimated Average Glucose 111 mg/dL; Glycohemoglobin A1C 5.5 % (4.5-6.2)
[2023-06-30 05:23] LABS: Troponin I High Sensitivity 5.8 pg/mL (4.0-51.3)
[2023-06-30 05:28] LABS: Triglycerides 91 mg/dL (<=150)
[2023-06-30 05:29] LABS: Chol HDL Ratio 3.7; Cholesterol 171 mg/dL (<=200); HDL Cholesterol 46 mg/dL (40-60); LDL Cholesterol Calculated 106.8 mg/dL; Thyroid Stimulating Hormone 1.592 uIU/mL (0.358-3.740); VLDL CHOLESTEROL 18.2 mg/dL
--- NOTE | 2023-06-30 07:10 | CA_ITS ---
Patient Name: MICHELLE BADILLO MR#: [id number] : 1970 Exam Date: 06/30/2023 Ordering Doctor: SHAIKH Yanira NEWTON . ECHOCARDIOGRAM REPORT PROCEDURE: CA ECHO DOPPLER COMPLETE INDICATIONS: Chest pain, GERD COMPARISON: None. DESCRIPTION: COMPLETE ECHOCARDIOGRAM Real-time transthoracic echocardiography with 2D, M-mode, spectral and color flow Doppler performed. QUALITY: Technical quality was adequate. 65 , 210#, BSA 2.02 m2, BP 108/72 LEFT VENTRICLE: Normal chamber size. Normal left ventricular wall thickness. LV EF: Global left ventricular systolic function appears normal; visually estimated ejection fraction is 60 to 65%. Unable to assess regional wall motion abnormality; consider contrast study as clinically appropriate. DIASTOLIC: Normal diastolic function. ATRIAL SEPTUM: Inadequately seen. LEFT ATRIUM: Normal chamber size. RIGHT ATRIUM: Normal chamber size. RIGHT VENTRICLE: Normal chamber size. Normal right ventricular systolic function. TRICUSPID VALVE: Normal mobility and thickness. No stenosis with trivial regurgitation. Doppler studies reveal mildly (35-45) elevated right sided pressures. RVSP 45 mmHg MITRAL VALVE: Normal mobility and thickness. No evidence of mitral valve stenosis. There is no mitral annular calcification. No mitral regurgitation. AORTIC VALVE: Normal trileaflet appearance. No visible sclerosis. Normal leaflet mobility. No evidence of aortic valve stenosis. No aortic regurgitation. AORTIC ROOT: Normal diameter and appearance. PULMONIC VALVE: Normal thickness and mobility. No stenosis. No regurgitation. PERICARDIUM: No evidence of pericardial effusion. IVC: Within normal limits. CONCLUSION: 1. Global left ventricular systolic function is normal; visually estimated ejection fraction is 60 to 65% 2. Normal right ventricular size and systolic function 3. Normal diastolic function 4. Valves are poorly seen; no significant valvular abnormalities Adult Echocardiography Procedure Report Left Ventricle LVEDD (3.7 - 5.6 cm): 3.62 cm LVESD (2.2 - 4.0 cm): 2.90 cm LVIVS thickness (0.6 - 1.2 cm): 0.99 cm LVPW thickness (0.5 - 1.0 cm): 0.90 cm e': 0.10 m/s E - e': 6.59 LVOT Max Gradient: 3.13 mm[Hg] LVOT Area (cm2): 0.88 m/s Peak Velocity (LVOT): 0.88 m/s Mean Velocity (LVOT): 0.55 m/s LVOT Diameter 1.99 cm Left Atrium LA Volume Index (2D A2C): 24.39 ml/m2 Left Atrium Systolic Dimension: 2.89 cm Mitral Valve MV E to A Ratio: 0.71 Mitral Valve A-Wave Peak Velocity: 0.92 m/s Mitral Valve E-Wave Peak Velocity: 0.66 m/s Right Ventricle Aorta AO Root Diam: 3.40 cm Ascending Ao Diam: 2.54 cm Aortic Valve AoV Area (Peak Bhargav): 2.35 cm2, 2.35 cm2 AoV Area (VTI): 2.54 cm2, 2.54 cm2 Peak Velocity(Antegrade Flow): 1.18 m/s Peak Gradient(Antegrade Flow): 5.53 mm[Hg] Mean Velocity(Antegrade Flow): 0.83 m/s Mean Gradient(Antegrade Flow): 3.09 mm[Hg] Velocity Time Integral: 25.62 cm Tricuspid Valve Peak Velocity (Regurgitant Flow): 2.23 m/s, 3.25 m/s Pulmonic Valve Peak Velocity: 0.83 m/s Peak Gradient: 2.53 mm[Hg], 2.95 mm[Hg] Right Atrium Dictated by: David Carrington M.D. on 06/30/2023 at 15:36 Approved by: David Carrington M.D. on 06/30/2023 at 15:38
--- NOTE | 2023-06-30 07:11 | CT_ITS ---
[address] [address] Patient Name: MICHELLE BADILLO MRN: [id number] date: 1970 Sex: F Assigned Patient Location: [place] Current Patient Location: [place] Accession/Order Number: [id number] Exam Date: 06/30/2023 07:43 Report Date: 06/30/2023 08:17 At the request of: SHAIKH AMAN Procedure: CT angio chest EXAM: CT angio chest HISTORY: Chest pain COMPARISON: None. TECHNIQUE: Following intravenous administration of 90 cc of Omnipaque 350, axial soft tissue and lung windows of the chest were performed with coronal and sagittal reformats. 3-D MIPS reconstructions were created and reviewed. CT dose reduction technique was used including Automated Exposure Control. Findings: The heart is not significantly enlarged. No pericardial effusion. The thoracic aorta is normal caliber. There is adequate opacification of the pulmonary arteries. No pulmonary embolism. The central airways are patent. No pneumothorax. No pleural effusion. No focal consolidation. No enlarged mediastinal, hilar, axillary or supraclavicular lymph nodes. Small hiatal hernia Partially visualized fatty liver. No aggressive sclerotic or lytic osseous lesions. Mild multilevel degenerative thoracic spondylosis. CT/CT angio chest IMPRESSION: 1. No pulmonary embolism. Electronically authenticated by: ANANDA KWAN Date: 06/30/2023 08:17
[2023-06-30] MEDS: ZONISAMIDE 25 MG CAPSULE PO (08:03)
[2023-06-30] MEDS: OMEPRAZOLE 20 MG CAPSULE.DR PO (08:03)
[2023-06-30] MEDS: ASPIRIN 81 MG TABLET.DR PO (08:03)
--- NOTE | 2023-06-30 10:34 | CM.NOTE ---
Rounds made with Dr. Jernigan, pt will discharge home today and schedule for outpatient stress test. Called Centralized scheduling for appt, message left to call back to Med-Surg for appt date and time.
--- NOTE | 2023-06-30 12:03 | P.HP_ITS ---
<Statement entered by Shaikh Rere MD - 06/30/23 13:01> This documentation has been reviewed and approved. Seen and examined. Medical records reviewed. Case discussed with patient's PCP, RN and KAYLAH Perry Agree with clinical decision making and treatment plan Patient presented with acute midsternal stabbing chest pain with radiation to her back and jaw. Pain lasted for 10 minutes. Similar episode occured a few days ago and was self limited. Cardiac work up unremarkable - normal EKG, Negative troponins, 2D ECHO with no sig structural abnormality. Stable for discharge. Will order exercise stress test for outpatient. Exam NAD,comfortable CTA bl , normal RR Normal HR, S1, S2 Assessment and Plan CP r/o ACS GERD Likely Non cardiac. work up negative. exercise stress test as outpatient. follow up with pcp in one week HPI H&P: HPI History of Present Illness Chief complaint: chest pain Narrative: 06/30/23 0845 This is a 53-year-old female patient with a relatively benign past medical history as outlined below except for severe GERD; who presented to the ED yesterday afternoon complaining of sharp substernal chest pain. The patient reports an initial episode of substernal chest discomfort 3 days ago. The pain was stabbing and radiated through to her back and right jaw. This episode lasted 15 to 20 minutes and self resolved. She had a recurrent episode of stabbing substernal chest pain yesterday afternoon that again radiated through to her back and right jaw. She denies any shortness of breath, dizziness, nausea, or diaphoresis with these episodes. She reports severe GERD that is being worked up by her primary care team. She felt GERD was the likely cause of her discomfort, but due to a family history of early cardiac disease (father with MT in his 50s), she presented to the ED for further evaluation. Workup in the ED was relatively benign with only mild renal insufficiency (CR 1.17, GFR 49) and hypertension on presentation (150/108). Serial cardiac enzymes were negative x 2, and EKG showed sinus rhythm, and a BNP was u nremarkable. Amylase and lipase were both unremarkable. A CXR and CTA were also unremarkable. She was admitted to the hospitalist service in observation last night for chest pain and further cardiac workup. At the time of my exam the patient is resting comfortably in bed. She reports no resumption of chest discomfort since her arrival in the ED. Her cardiac enzymes remain negative throughout the night. A lipid panel was obtained this morning and is unremarkable. She denies pleuritic chest discomfort and her pain is not reproducible on exam. A 2D echo is pending today. If this study appears to be unremarkable patient will likely be discharged home in stable condition. We will order an outpatient exercise stress test to complete a thorough cardiac evaluation. Opioid HPI Opioid Management Most Recent Opioid Data: Last Pain Scale 0 06/30/23 01:24 Last Pain Assessment 06/30/23 11:39 Last ORT Total Score 0 06/29/23 23:27 Last ORT Risk Category Low Risk 06/29/23 23:27 Review of Systems ROS Status of ROS 10 or more systems reviewed and unremark able except as noted in history and below [facility] History (Updated 06/30/23 @ 12:17 by Vicky Maldonado NP) Trigeminal neuralgia of right side of face ?G50.0 - Trigeminal neuralgia (ICD-10) GERD (gastroesophageal reflux disease) ?K21.9 - Gastro-esophageal reflux disease without esophagitis (ICD-10) Surgical History (Updated 06/30/23 @ 12:13 by Vicky Maldonado NP) History of cholecystectomy ?Z90.49 - Acquired absence of other specified parts of digestive tract (ICD- 10) History of ERCP ?Z98.890 - Other specified postprocedural states (ICD-10) H/O arthroscopy ?Z98.890 - Other specified postprocedural states (ICD-10) H/O: hysterectomy ?Z90.710 - Acquired absence of both cervix and uterus (ICD-10) Family History (Updated 06/29/23 @ 23:52 by Kat Cruz) Father Family history of COPD (chronic obstructive pulmonary disease) Family history of hypertension Family history of myocardial infarction Grandmother Family history of cancer Mother Family history of diabetes mellitus Social History (Updated 06/29/23 @ 23:58 by Kat Cruz) Within the past year, how often did you have a drink containing alcohol: never Within the past year, how often did you have six or more drinks on one occasion: never Score interpretation: A score less than 3 is consistent with normal alcohol consumption. Smoking status: Never smoker Second hand tobacco smoke exposure: No Non-prescribed substance use: denies use Previous occupational history: occ therapy Known occupational exposures/hazards: No Highest level of school completed/degree received: Master's degree Are you now , , , , never or living with a partner: In a typical week, how many times do you talk on the telephone with family, friends, or neighbors: 3 or more times per week How often do you get together with friends or relatives: 3 or more times per week How often do you attend scientologist or quaker services: never Do you belong to any clubs or organizations such as scientologist groups unions, [employer] or athleUbersense groups, or school groups: no Total score: 2 Score interpretation: A score of greater than or equal to 2 indicates the lowest level of social isolation. Little interest or pleasure in doing things: not at all Feeling down, depressed, or hopeless: not at all Feel stressed/tense/nervous/anxious/difficulty sleeping: not at all Due to disability, difficulty making decisions: No Do you think of yourself as: straight/heterosexual Gender Identity: female Meds Home Medications and Allergies Home Medications ?Medication ?Instructions ?Recorded ?Confirmed ?Type amitriptyline 50 mg tablet 50 mg PO .HS insomina 06/29/23 06/30/23 History pantoprazole 20 mg tablet,delayed 20 mg PO Q12H 06/29/23 06/29/23 History release zonisamide 25 mg capsule 25 mg PO Q12H 06/29/23 06/29/23 History Allergies Allergy/AdvReac Type Severity Reaction Status Date / Time Penicillins AdvReac Severe Verified 06/29/23 17:54 Exam Constitutional Vital Signs, click to edit/add: Last Vital Signs Temp 97.6 F 06/30/23 04:27 Pulse 94 H 06/30/23 09:59 Resp 14 06/30/23 04:27 BP 108/72 06/30/23 04:27 Pulse Ox 94 L 06/30/23 04:27 O2 Del Method Room Air 06/30/23 04:27 Common normals: no apparent distress, alert and well nourished General appearance: cooperative [facility] Common normals: normocephalic, head/scalp atraumatic, hearing grossly normal bilaterally, external nose normal and moist oral mucous membranes Eye Common normals: PERRL, EOMs intact bilaterally, conjunctivae normal and no scleral icterus Alignment: alignment normal Eyelid: eyelids normal Neck & C-Spine Common normals: full ROM, supple and no JVD Chest Common normals: inspection of chest normal Chest: symmetrical chest wall rise Respiratory Common normals: normal respiratory effort, no retractions, no use of accessory muscles and clear to auscultation bilaterally Effort & inspection: able to speak in complete sentences Cardio Common normals: no JVD, regular rate, regular rhythm, S1 normal heart sound, S2 normal heart sound, no gallops, no clicks, no murmurs, no rub and peripheral pulses 2+ throughout GI Common normals: Normal to inspection, nondistended, normoactive bowel sounds present, soft to palpation, non-tender, no hepatosplenomegaly, no masses and no bruits Bladder/kidney exam: bladder normal to palpation Back & Pelvis Common normals: thoracic and lumbar spine normal to inspection Extremity Common normals: normal capillary refill and no pedal edema General: normal exam except as noted; no clubbing and no cyanosis Neuro [place] Coma Scale: GCS not evaluated Common normals: oriented x3, CN's II-XII intact bilaterally, moves all extremities, no focal motor deficits and no sensory deficits noted Psych Common normals: mental status grossly normal, thought process normal, affect normal and activity/motor behavior normal Results Labs Labs: Short CBC 06/29/23 06/30/23 Range/Units 18:21 04:25 WBC 6.9 6.8 (4.0-11.0) 10^3/uL Hgb 13.3 12.4 (12.0-16.0) g/dL Hct 40.4 37.9 (36.0-48.0) % Plt Count 283 246 (150-450) 10^3/uL BMP 06/29/23 06/30/23 18:21 04:25 Sodium 141 141 Potassium 3.8 3.7 Chloride 104 108 H Carbon Dioxide 25.0 23.7 BUN 18.0 19.0 H Creatinine 1.17 H 1.02 Glucose 95 92 Calcium 9.4 9.2 Liver Function 06/29/23 06/29/23 06/29/23 Range/Units 18:21 18:21 18:21 Total Bilirubin 0.3 0.3 (0.2-1.0) mg/dL Direct Bilirubin 0.1 (0.0-0.2) mg/dL AST 21 20 (15-37) U/L ALT 40 (14-59) U/L Alkaline Phosphatase (46-116) U/L Albumin (3.4-5.0) g/dL 06/29/23 06/29/23 06/29/23 Range/Units 18:21 18:21 18:21 Total Bilirubin (0.2-1.0) mg/dL Direct Bilirubin (0.0-0.2) mg/dL AST (15-37) U/L ALT 38 (14-59) U/L Alkaline Phosphatase 109 111 (46-116) U/L Albumin 3.7 3.8 (3.4-5.0) g/dL Pulse Oximetry Attestation: I have reviewed the pertinent pulse oximetry results. ECG Interpretation: Sinus rhythm Low QRS voltage in chest leads Atypical ECG Compared to ECG from 06/29/2022 No significant changes Imaging Chest x-ray: Attestation: I have reviewed the pertinent imaging results. Radiologist's impression: IMPRESSION: No acute infiltrate or evidence of cardiac decompensation. The overall appearance of the chest is essentially unchanged. CTA Chest: Attestation: I have reviewed the pertinent imaging results. Radiologist's impression: IMPRESSION: 1. No pulmonary embolism. Assessment and Plan Assessment and Plan (1) Chest pain: Assessment and Plan: Acute * Adm observation * Serial cardiac enzymes x 3 - neg * EKG - SR, no ischemic changes * CXR - NAD * CTA Chest - no PE, No noted aneurysm * 2D Echo - obtained, cardiology interpretation pending. Prelim report unremarkable. * D/C home w/ orders for outpatient exercise stress test to complete cardiac work up. * Follow up with PCP Qualifiers: Chest pain type: unspecified Qualified Code(s): R07.9 - Chest pain, unspecified (2) GERD (gastroesophageal reflux disease): Assessment and Plan: Chronic * Continue home PPI * Defer to primary team for further management Qualifiers: Esophagitis presence: with esophagitis Esophagitis bleeding: unspecified whether hemorrhage Qualified Code(s): K21.00 - Gastro-esophageal reflux disease with esophagitis, without bleeding (3) Trigeminal neuralgia of right side of face: Assessment and Plan: Chronic * Continue home Zonisamide
--- NOTE | 2023-07-01 14:19 | CM.DCFOLLOWU ---
Person spoke with: patient How are you feeling? alright How is your pain? no pain at this time Did you understand your discharge instructions? yes Do you have any questions about your discharge instructions? no Were you given any prescriptions at discharge? no Were you able to get your prescriptions filled? no Do you understand how to take your medications as ordered? yes Do you have any questions about your follow up appointment and do you plan to keep your follow up appointment? no questions, reviewed follow ups and stress test date Is there anything else that you would like to discuss? no Questions/Comments/Concerns/Other: N/A
--- OUTSIDE RECORDS SUMMARY | 2023-07-02 07:14 | XMS_ITS | CCD ---
Author Organization [facility] Care Team Providers Care Accounts Payable Processor Name Role Phone Larry DO Luis M Montano Attending Provider NON STAFF Primary Care Provider Unavaildina e NON STAFF Primary Care Provider Unavaildina e TISHA Pace- Rose Attending Provider [phone] MD Anand Lopez Attending Provider AICHHOLZ, KAMILLA J Primary Care Physician PATI ., DR MICHEL Attending Unavailable LOEPZ ., DR MICHEL Consulting Unavailable AICHHOLZ, ENGINEERING ASSOCIATE KAMILLA Primary Care Unavailable LOPEZ ., DR MICHEL Admitting Unavailable GALVEZ, IZZY Consulting Unavailable LOPEZ ., DR MICHEL Consulting Unavailable AICHHOLZ, ENGINEERING ASSOCIATE KAMILLA Primary Care Unavailable LOPEZ ., DR MICHEL Admitting Unavailable LOPEZ ., DR MICHEL Attending Unavailable ZIEBER, DR JERICA Fonseca Consulting Unavailable VICTORINO, KYLE Consulting Unavailable MARY ANN II, GEOVANNI Consulting Unavailable LOPEZ ., DR MICHEL Attending Unavailable AICHHOLZ, ENGINEERING ASSOCIATE KAMILLA Primary Care Unavailable LOPEZ ., DR MICHEL Admitting Unavailable AICHHOLZ, ENGINEERING ASSOCIATE KAMILLA Admitting Unavailable AICHHOLZ, ENGINEERING ASSOCIATE KAMILLA Attending Unavailable AICHHOLZ, ENGINEERING ASSOCIATE KAMILLA Consulting Unavailable AICHHOLZ, ENGINEERING ASSOCIATE KAMILLA Primary Care Unavailable ZIEBER, DR JERICA Fonseca Consulting Unavailable AICHHOLZ, ENGINEERING ASSOCIATE KAMILLA Admitting Unavailable AICHHOLZ, ENGINEERING ASSOCIATE KAMILLA Attending Unavailable AICHHOLZ, ENGINEERING ASSOCIATE KAMILLA Consulting Unavailable AICHHOLZ, ENGINEERING ASSOCIATE KAMILLA Primary Care Unavailable FAWWAD, STEELE H Admitting Unavailable FAWWAD, STEELE H Attending Unavailable FAWWAD, STEELE H Consulting Unavailable AICHHOLZ, ENGINEERING ASSOCIATE KAMILLA Primary Care Unavailable LOPEZ ., DR MICHEL Attending Unavailable LOPEZ ., DR MICHEL Consulting Unavailable AICHHOLZ, ENGINEERING ASSOCIATE KAMILLA Primary Care Unavailable LOPEZ ., DR MICHEL Admitting Unavailable ZIEBER, DR JERICA Fonseca Consulting Unavailable AICHHOLZ, ENGINEERING ASSOCIATE KAMILLA Primary Care Unavailable AICHHOLZ, ENGINEERING ASSOCIATE KAMILLA Admitting Unavailable AICHHOLZ, ENGINEERING ASSOCIATE KAMILLA Attending Unavailable AICHHOLZ, ENGINEERING ASSOCIATE KAMILLA Consulting Unavailable LOPEZ ., DR MICHEL Admitting Unavailable LOPEZ ., DR MICHEL Consulting Unavailable AICHHOLZ, ENGINEERING ASSOCIATE KAMILLA Primary Care Unavailable LOPEZ ., DR MICHEL Attending Unavailable WEST, DR LUIS M Bustos Consulting Unavailable AICHHOLZ, ENGINEERING ASSOCIATE KAMILLA Primary Care Unavailable WEST, DR LUIS M Bustos Consulting Unavailable AICHHOLZ, ENGINEERING ASSOCIATE KAMILLA Admitting Unavailable AICHHOLZ, ENGINEERING ASSOCIATE KAMILLA Attending Unavailable AICHHOLZ, ENGINEERING ASSOCIATE KAMILLA Consulting Unavailable LOPEZ ., DR MICHEL Consulting Unavailable AICHHOLZ, ENGINEERING ASSOCIATE KAMILLA Primary Care Unavailable LOPEZ ., DR [...] Referring Unavailable SOPHIEISABELLE Primary Care Unavailable Aichholz MANAGER INTERNSHIP, Kamilla Unavailable Nishant Aguilar MD Primary Care Provider [phone] AICHHOLZ, KAMILLA Attending Unavailable ZONIA PAK Attending Unavailable AICHHOLZ, KAMILLA Attending Unavailable James FU, Kristine Patten Attending Phyllis yanet Ramirez PA-C, Kristine Patten Attending [facility] Allergies Allergy Classification Reported Allergen(s) Allergy Type Date of Onset Reaction(s) Facility (11 sources) Penicillins; Translations: [Penicillins] Allergy to substance 07-14-2017 [facility] (5 sources) Penicillin; Translations: [penicillin] Drug Allergy Unknown [facility] Medications Current Medications Medication Drug Class(es) [...] Refill(s) 0 Start Date: 06/22/22 Status: Ordered Georgetown-3 oral capsule (3 sources) Start: 06-22-2022 Georgetown-3 oral capsule Refill(s) 0 Start Date: 06/22/22 [...] Forms- Texton 12-0 Neurology Forms- Text [id number]#1.00TIFF Normal [facility] Consent for Treatmenton 11-0 Consent for Treatment [id number]#1.00TIFF Normal [facility] Ambulatory Visit Summaryon 1 Ambulatory Visit Summary CINTHIA BADILLO :1970 Visit Date:12/28/2022 Ambulatory Visit Instructions Your Diagnosis Kidney stone Tests Performed Urnls Dip Stick Auto w/o Microscopy POC 61192 XR Abdomen 1 View -- Results Pending [...] Soft Calcium Chews) omega-3 polyunsaturated fatty acids (Georgetown-3 oral capsule) pantoprazole (Pantoprazole [address] [...] NICHELLE Sanabria When: In 1 year Comments: w/KUErica Where: [facility] [address], [place] [address]- Medications What How Much When Instructions Unchanged [...] or concerns Unchanged omega-3 polyunsaturated fatty acids (Georgetown-3 oral capsule) Contact prescribing physician if questions or concerns Unchanged pantoprazole (Pantoprazole [address] Tab) Contact prescribing physician if questions or concerns Unchanged terbinafine (terbinafine 250 mg Tab) Contact prescribing physician if questions or concerns Unchanged zonisamide (zonisamide 25 mg Cap) Contact prescribing physician if questions or concerns Test Results Urnls Dip Stick Auto w/o Microscopy POC 02111 (12/28/2022) Bilirubin Urine Dipstick - Negative Blood Urine Dipstick - Trace-intact Glucose Urine Dipstick - Negative Ketones Urine Dipstick - Negative Leukocytes Urine Dipstick - Negative Nitrite Urine Dipstick - Negative Protein Urine Dipstick - Negative Specific [place] Urine Dipstick - 1.020 Urine Appearance Urine [...] ? 8 oz (237 mL) of milk, hhxrrhg-bzwelpgvcbap-hyzoe milk, and calcium-fortifiedfruit juice. Calcium-fortified means that [...] need 1, (more content not included)... Normal [facility] Patient Educationon 12-29-19 Patient Education Nephrology Dietary [...] ? 8 oz (237 mL) of milk, dhgcbmh-prlxszqwcjbh-mybqa milk, and calcium-fortifiedfruit juice. Calcium-fortified means that [...] Spinach (cooked), rhubarb, beets, sweet potatoes, and Nepalese chard. ? Peanuts. ? Potato chips, indian fries, and baked potatoes with skin on. ? Nuts and nut products. ? Chocolate. ? If you regularly take a diuretic medicine, make sure to eat at least 1 or 2 servings of fruits or vegetables that are high in potassium each day. These include: ? Avocado. ? Banana. ? Coamo, prune, carrot, or tomato juice. ? Baked [...] fish oil, or vitamin B6. ? Take fkwa-lye-xwxnshz and prescription medicines only as told by your health care provider. These include supplements. What foods should I limit? Limit your in (more content not included)... Normal [facility] RAD - MISCon 12-28-2022 RAD - MIS [id number]#1.00TIFF Normal [facility] Urology Office/Clinic Noteon 12-28-2022 Urology Office/Clinic Note Chief Complaint kidney stone HPI Staff 52 yo female here for 6 month f/u with KUB. Previous Dx: kidney stone, L flank pain. S/p L ESWL 07/02/22 and Cysto/L URS/L stone basket extraction 08/13/22. KUB done 07/29/22 at [facility]. Stone analysis done 07/06/22 and 08/14/22. Dysuria: [...] 07/02/22 Stone analysis done 07/06/22 - CaOx [place] 80% & CaOx Dihy 20% KUB 07/29/22 - grossly stable Lt Nephrolithiasis S/p Cysto/L URS/L stone basket extraction 08/13/22 Stone Analysis 08/14/22 - CaOx [place] 90% & CaOx Dihy 10% KUB 12/26/22 [...] year [facility] [address] [place] [address]- Additional Instructions: w/KUB Patient Education Dietary Guidelines [...] Once a day (at bedtime) multivitamin, Daily Georgetown-3 oral capsule Pantoprazole [address] Tab terbinafine 250 mg Tab Viactiv Soft Calcium Chews Vitamin C, Daily zonisamide 25 mg Cap Allergies penicillin (Unknown) Social History Tobacco Never (less than 100 in lifetime) Tobacco Use:. Never Smokeless Tobacco Use:., 06/22/2022 Family History Family history is negative Immunizations Vaccine Date Status Comments SARSCoV2 mRNA(nkjjuqjft-ejms-yajqsm) vac 10/09/2021 Boby (more content not included)... Normal [facility] Comment on above: Result Comment: Elec tronically Signed By: Anand LOPEZ MD\.br\Date and Time Signed: 12/28/22 16:09 EDT\.br\Electronically Co-Signed By: Jaylene Baires\.br\Date and Time Co-Signed: 12/28/22 16:05 EDT Physician Orderon 12-25-2022 Physician Order [id number]#1.00TIFF Normal [facility] Blu 09-30-2022 L ------- Specimen: [id number] Received: 09/30/22 Status: RAYMUNDO Stock Num: [id number] Spec Type: Surgical Subm Dr: Juani Blackwell MD Tissues: A Duodenum - Biopsy (DUODENUM BX) B GASTRIC FOR HP (GASTRIC) C Gastric Biopsy (GASTRIC POLYP) Procedures: HE/6, Gross/Micro L4/3, H PYLORI Age/ Patient Sex Location Account Attending Physician Cinthia Badillo 52/F [id number] Juani Blackwell MD SPEC NUM: [id number] RECD: 09/30/22 STATUS: RAYMUNDO STOCK NUM: [id number] TETE: 09/30/22- [facility] DR: Juani Blackwell MD ENTERED: 09/30/[address] [facility] [address]: SPEC TYPE: Surgical DEPT: S ORDERED: [...] out celiac, rule out H. pylori Specimen: [id number] Received: 09/30/22 Status: RAYMUNDO Stock Num: [id number] Spec Type: Surgical Subm Dr: Juani Blackwell MD Tissues: A Duodenum - Biopsy (DUODENUM BX) B GASTRIC FOR HP (GASTRIC) C Gastric Biopsy (GASTRIC POLYP) Procedures: HE/6, Gross/Micro L4/3, H PYLORI Patient: ChristianaCinthia Montano [id number] (Continued) Specimen: [id number] Received: 09/30/22 (Continued) Signed (signature on file) Justo Sher MD 10/01/22 1050 Specimen: [id number] Received: 09/30/22 Status: RAYMUNDO Stock Num: [id number] Spec Type: Surgical Subm Dr: Juani Blackwell MD Tissues: A Duodenum - Biopsy (DUODENUM BX) B GASTRIC FOR HP (GASTRIC) C Gastric Biopsy (GASTRIC POLYP) Procedures: HE/6, Gross/Micro L4/3, H PYLORI Patient: Cinthia Badillo [id number] (Continued) Specimen: [id number] Received: 09/30/22 (Continued) Gross Description A. Received in formalin labeled with the patient's name, date of and biopsy duodenum is one cash tissue measuring 0.4 x 0.2 x 0.2 cm. Entirely submitted in one cassette labeled A1. B. Received in formalin labeled with the patient's name, date of and gastric biopsy are two acsh tissues averaging 0.4 x 0.2 x 0.2 [...] microscopic examination confirms the diagnosis. CPT Codes 06144 x 3 Specimen: [id number] Received: 09/30/22 Status: RAYMUNDO Stock Num: [id number] Spec Type: Surgical Subm Dr: Juani Blackwell MD Tissues: A Duodenum - Biopsy (DUODENUM BX) B GASTRIC FOR HP (GASTRIC) C Gastric Biopsy (GASTRIC POLYP) Procedures: HE/6, Gross/Micro L4/3, H PYLORI Patient: Cinthia Badillo [id number] (Continued) Signed (signature on file) Justo Sher MD 10/01/22 1050 Normal [facility] Pathology Noteon 09-08-2022 Pathology Note [id number]#1.00CD:127 Normal [facility] NM gastric emptying studyon 08-31-2022 [place] [address] Nuclear Medicine Report Signed Patient: Cinthia Badillo MR#: [id number] : 1970 Acct:[id number] Age/Sex: 52 / F ADM Date: 08/31/22 Loc: [place] Room: Type: [facility] Attending Dr: Juani Blackwell MD Copies to: MD Anabela Chin MD Ordering Provider: Juani Blackwell MD Date of Service: 08/31/22 NM/ID gastric emptying study: K21.9, R11.10 GASTRIC EMPTYING [...] Anabela Greer M.D.08/31/2022 9:37 AM Dictation Location: [place] [address] Transcribed By: [facility] 08/31/22936 Dictated By: Anabela Greer MD 08/31/2236 Signed By: 08/31/22936 [facility] Lab Reportson 08-28-2022 Lab Reports [id number]#1.00CD:127 [facility] Provider Letteron 08-17-2022 Provider Letter (Inserted Image. Phyllis ble to display) August 17, 2022 CINTHIA BADILLO [address] [place] [address] : 1970 To Whom It May Concern, Cinthia Badillo 1970 Please excuse above patient from work. Date of Illness: From: 08/13/2022 To: 08/17/2022 May Return to Work On: 08/18/2022 Restrictions: No Restrictions Comments: _ Sincerely, Anand Lopez MD [facility] [address] [place] [id number] [place] [address] Operative Reporton 3 Operative Report [id number]#1.00CD:127 [facility] Ammonium urate crystals dete ction in stone by infrared spectroscopyOrdered By: Anand Lopez on 08-13-2022 Ammonium urate crystals Infrared spectroscopy Ql (Stone) N/A [facility] Calcium bilirubinate measure mentOrdered By: Anand Lopez on 08-13-2022 Calcium bilirubinate (Stone) [Mass fraction] N/A [facility] Calcium carbonate measuremen tOrdered By: Anand Lopez on 08-13-2022 Calcium carbonate (Stone) [Mass fraction] N/A [facility] Calcium hydrogen phosphate d ihydrate/Total in StoneOrdered By: Anand Lopez on 08-13-2022 Calcium hydrogen phosphate dihydrate (Stone) [Mass fraction] N/A [facility] Calcium oxalate dihydrate cr ystals detection in stone by infrared spectroscopyOrdered By: Anand Lopez on 08-13-2022 Calcium oxalate dihydrate crystals Infrared spectroscopy Ql (Stone) 10 % . [facility] Calcium oxalate monohydrate/ Total in StoneOrdered By: Anand Lopez on 08-13-2022 Calcium oxalate monohydrate (Stone) [Mass fraction] 90 % . [facility] Calcium phosphate measuremen tOrdered By: Anand Lopez on 08-13-2022 Calcium phosphate (Stone) [Mass fraction] N/A [facility] Calculi, Urinaryon Ca Oxalate Dihydrate 10 % Normal . [facility] Comment on above: Performed By: #### C ALCULI #### [facility] , Ca Oxalate Monohydrate 90 % Normal . [facility] Comment on above: Performed By: #### C ALCULI #### [facility] , Color (U) Brown Normal . [facility] Comment on above: Performed By: #### C ALCULI #### [facility] , Comment2 Normal . [facility] Comment on above: Result Comment: Calc ulus received wet. Wet calculi must be dried before analysis, which delays reporting of results. Leaving calculi wet (such as water, saline, blood, urine) may lead to changes in composition. Performed By: #### C ALCULI #### [facility] , Comment: Normal . [facility] Comment on above: Result Comment: Bhavana power questions regarding Calculi Analysis [facility] at: [phone]. Performed By: #### C ALCULI #### [facility] , Composition Normal . [facility] Comment on above: Result Comment: Perc entage (Represents the % composition) Performed By: #### C ALCULI #### [facility] , Disclaimer: Normal . [facility] Comment on above: Result Comment: This test was developed and its performance characteristics determined by [facility]. It has not been cleared or approved by the Food and Drug Administration. Performed at: [facility] - [facility] [id number] Holter Technician: Mike Valladares PhD, Phone: [phone] Performed By: #### C ALCULI #### [facility] , Note Normal . [facility] Comment on above: Result Comment: Calc hannah report will follow via computer, mail or patient care delivery. PERFORMED BY: [facility] [address] [place] [address] PATHOLOGIST RANGE AIDE SOUTH PORTER M.D. Performed By: #### C ALCULI #### [facility] , Photo Normal . [facility] Comment on above: Result Comment: Phot ograph will follow under a separate cover Performed By: #### C ALCULI #### [facility] , Size 4x4 Normal . [facility] Comment on above: Result Comment: Mult iple pieces received. Dimensions of the largest piece reported. Performed By: #### C ALCULI #### [facility] , Source Normal . [facility] Comment on above: Result Comment: Left Kidney Performed By: #### C ALCULI #### [facility] , Weight 107 Normal . [facility] Comment on above: Performed By: #### C ALCULI #### [facility] , Calculus analysis interpreta tion in stoneOrdered By: Anand Lopez on 08-13-2022 Calculus analysis [Interp] N/A [facility] Calculus analysis [Interp] See comment . [facility] Comment on above: Calculus received we t. Wet calculi must be dried beforeanalysis, which delays reporting of results. Leaving calculiwet (such as water, saline, blood, urine) may lead tochanges in composition. Physician questions regarding Calculi Analysis [facility] at: [phone]. Calculi report will follow via computer, mail or courierdelivery. Calculus analysis with calcu sabrina photography interpretation in stoneOrdered By: Anand Lopez on 08-13-2022 Calculus analysis with calculus photography [Interp] See comment . [facility] Comment on above: Photograph will foll ow under a separate cover Cellular material measuremen t in stone by estimated (mass/mass)Ordered By: Anand Lopez on 08-13-2022 Cellular material Est (Stone) [Mass/Mass] N/A [facility] Cholesterol/Total in StoneOr dered By: Anand Lopez on 08-13-2022 Cholesterol (Stone) [Mass fraction] N/A [facility] Composition of stoneOrdered By: Anand Lopez on 08-13-2022 Composition Nom (Stone) See comment . [facility] Comment on above: Percentage (Represen ts the % composition) Cystine measurementOrdered B y: Anand Lopez on 08-13-2022 Cystine (Unsp spec) [Moles/Vol] N/A [facility] Determination of color of ca lculusOrdered By: Anand Lopez on 08-13-2022 Color (Stone) Brown . [facility] Hydroxyapatite [Energy Diffe rence] in 24 hour UrineOrdered By: Anand Lopez on 08-13-2022 Hydroxyapatite (24H U) [Energy diff] N/A [facility] Blu 08-13-2022 L ------- Specimen: [id number] Received: 08/14/22 Status: RAYMUNDO Stock Num: [id number] Spec Type: Surgical Subm Dr: Anand Lopez MD Tissues: A Urinary Calculus (LT RENAL CALCULI) Procedures: Level 1 Gross Age/ Patient Sex Location Account Attending Physician Cinthia Badillo 52/F [place] [id number] Anand Lopez MD SPEC NUM: [id number] RECD: 08/14/22 STATUS: RAYMUNDO STOCK NUM: [id number] TETE: 08/13/22- [facility] DR: Anand Lopez MD ENTERED: 08/14/[address] [facility] [address]: [facility] SPEC TYPE: Surgical DEPT: S ORDERED: Level [...] chemical analysis. Gross examination only. CPT Codes 01241 Specimen: [id number] Received: 08/14/22 Status: RAYMUNDO Stock Num: [id number] Spec Type: Surgical Subm Dr: Anand Lopez MD Tissues: A Urinary Calculus (LT RENAL CALCULI) Procedures: Level 1 Gross Patient: Cinthia Badillo [id number] (Continued) Signed (signature on file) Rory Connors MD 09/04/22 4448 [facility] Measurement of proportion of calculus composed of dried blood (mass/mass)Ordered By: Anand Lopez on 08-13-2022 Blood.dried (Stone) [Mass fraction] N/A [facility] Newberyite/Total in StoneOrd ered By: Anand Lopez on 08-13-2022 Newberyite (Stone) [Mass fraction] N/A [facility] No Panel InformationOrdered By: Anand Lopez on 08-13-2022 Stone 2,8 Dihydroxyadenine N/A [facility] Stone Analysis Disclaimer See comment . [facility] Comment on above: This test was develo ped and its performance characteristicsdetermined by [employer]. It has not been cleared or approvedby the Food and Drug Administration.Performed at: [facility] Lab[address] [id number] Director: Mike Valladares PhD, Phone: [phone] Stone Bilirubinate N/A [facility] Stone Calcium Palmitate N/A [facility] Stone Calcium Stearate N/A [facility] Stone Carbonate Apatite N/A [facility] Stone Drug or Metabolite N/A [facility] Stone Other Constituent N/A [facility] Stone Xanthine N/A [facility] Size [Entitic volume] of Sto neOrdered By: Anand Lopez on 08-13-2022 Size (Stone) [Entitic vol] 4x4 mm . [facility] Comment on above: Multiple pieces rece ived. Dimensions of the largest piecereported. Sodium urate crystals detect ion in stone by infrared spectroscopyOrdered By: Anand Lopez on 08-13-2022 Sodium urate crystals Infrared spectroscopy Ql (Stone) N/A [facility] Specimen source subject [Typ e]Ordered By: Anand Lopez on 08-13-2022 Specimen source subject Nom See comment . [facility] Comment on above: Left Kidney Triamterene measurement in c alculusOrdered By: Anand Lopez on 08-13-2022 Triamterene (Stone) [Mass fraction] N/A [facility] Triple phosphate/Total in St oneOrdered By: Anand Lopez on 08-13-2022 Triple phosphate (Stone) [Mass fraction] N/A [facility] Uric acid dihydrate crystals detection in stone by infrared spectroscopyOrdered By: Anand Lopez on 08-13-2022 Urate dihydrate crystals Infrared spectroscopy Ql (Stone) N/A [facility] Consent for Procedure/Surger yon 08-12-2022 Consent for Procedure/Surgery [id number]#1.00CD:127 Normal [facility] Lab Reportson 08-12-2022 Lab Reports [id number]#1.00CD:127 Normal [facility] Lab Reports [id number]#1.00CD:127 Normal [facility] Physician Orderon 08-11-2022 Physician Order [id number]#1.00CD:127 Normal [facility] CBC AUTO DIFFon 08-07-2022 BASO # 0.0 103/ul Normal 0.0-0.1 [facility] Comment on above: Performed By: #### P TT, PT #### [facility] [address] [place] [address] [address] Judy Ramirez Basophils/100 WBC (Bld) 0.5 % Normal 0.2-2.0 [facility] Comment on above: Performed By: #### P TT, PT #### [facility] [address] [place] [address] [address] Judy Ramirez EO # 0.1 103/ul Normal 0.0-0.7 [facility] Comment on above: Performed By: #### P TT, PT #### [facility] [address] [place] [address] [address] Judy Ramirez Eosinophils/100 WBC (Bld) 1.6 % Normal 0.9-7.0 [facility] Comment on above: Performed By: #### P TT, PT #### [facility] [address] [place] [address] [address] Judy Ramirez Erythrocyte distribution width (RBC) [Ratio] 12.8 % Normal 11.0-15.0 [facility] Comment on above: Performed By: #### P TT, PT #### [facility] [address] [place] [address] Dr. Judy Ramirez Hematocrit (Bld) [Volume fraction] 40.7 % Normal 36.0-48.0 [facility] Comment on above: Performed By: #### P TT, PT #### [facility] [address] [place] [address] Dr. Judy Ramirez Hemoglobin (Bld) [Mass/Vol] 13.5 g/dL Normal 12.0-16.0 [facility] Comment on above: Performed By: #### P TT, PT #### [facility] [address] [place] [address] Dr. Judy Ramirez IG # 0.02 10e3/ul Normal 0.00-0.03 [facility] Comment on above: Performed By: #### P TT, PT #### [facility] [address] [place] [address] Dr. Judy Ramirez IG % 0.3 % Normal 0.0-0.5 [facility] Comment on above: Performed By: #### P TT, PT #### [facility] [address] [place] [address] Dr. Judy Ramirez LYMPH # 2.6 103/ul Normal 1.2-3.8 [facility] Comment on above: Performed By: #### P TT, PT #### [facility] [address] [place] [address] Dr. Judy Ramirez Lymphocytes/100 WBC (Bld) 33.9 % Normal 20.5-60.0 [facility] Comment on above: Performed By: #### P TT, PT #### [facility] [address] [place] [address] Dr. Judy Ramirez MANUAL DIFF REQ NO Normal [facility] Comment on above: Performed By: #### P TT, PT #### [facility] [address] [place] [address] Dr. Judy Ramirez MCH (RBC) [Entitic mass] 28.5 pg Normal 26.7-34.0 [facility] Comment on above: Performed By: #### P TT, PT #### [facility] [address] [place] [address] Dr. Judy Ramirez MCHC (RBC) [Mass/Vol] 33.2 g/dL Normal 29.9-35.2 [facility] Comment on above: Performed By: #### P TT, PT #### [facility] [address] [place] [address] Dr. Judy Ramirez MCV (RBC) [Entitic vol] 86.0 fL Normal 81.0-99.0 [facility] Comment on above: Performed By: #### P TT, PT #### [facility] [address] [place] [address] Dr. Judy Ramirez MONO # 0.4 103/ul Normal 0.3-0.8 [facility] Comment on above: Performed By: #### P TT, PT #### [facility] [address] [place] [address] Dr. Judy Ramirez Monocytes/100 WBC (Bld) 5.6 % Normal 1.7-12.0 [facility] Comment on above: Performed By: #### P TT, PT #### [facility] [address] [place] [address] Dr. Judy Ramirez NEUT # 4.4 103/ul Normal 1.4-6.5 [facility] Comment on above: Performed By: #### P TT, PT #### [facility] [address] [place] [address] Dr. Judy Ramirez Neutrophils/100 WBC (Bld) 58.1 % Normal 43.0-75.0 [facility] Comment on above: Performed By: #### P TT, PT #### [facility] [address] [place] [address] Dr. Judy Ramirez Platelet mean volume (Bld) [Entitic vol] 9.4 fL Critically low 9.5-13.5 [facility] Comment on above: Performed By: #### P TT, PT #### [facility] [address] [place] [address] Dr. Judy Ramirez PLT 285 103/ul Normal 150-450 [facility] Comment on above: Performed By: #### P TT, PT #### [facility] [address] [address] [address] Judy Ramirez RBC 4.73 106/ul Normal 4.20-5.40 [facility] Comment on above: Performed By: #### P TT, PT #### [facility] [address] [address] [address] Judy Ramirez WBC 7.6 103/ul Normal 4.0-11.0 [facility] Comment on above: Performed By: #### P TT, PT #### [facility] [address] [place] [address] Dr. Judy Ramirez Lab Reportson 08-07-2022 Lab Reports [id number]#1.00CD:127 Normal [facility] PROF CHEM 8 (BAS METB)on Anion gap [Moles/Vol] 9.8 mmol/L Normal [facility] Comment on above: Performed By: #### P TT, PT #### [facility] [address] [place] [address] Dr. Judy Ramirez Calcium [Mass/Vol] 9.3 mg/dL Normal 8.5-10.1 [facility] Comment on above: Performed By: #### P TT, PT #### [facility] [address] [place] [address] Dr. Judy Ramirez Chloride [Moles/Vol] 105 mmol/L Normal 98-107 [facility] Comment on above: Performed By: #### P TT, PT #### [facility] [address] [address] [address] Judy Ramirez CO2 [Moles/Vol] 30.4 mmol/L Normal 21.0-32.0 [facility] Comment on above: Performed By: #### P TT, PT #### [facility] [address] [address] [address] Judy Ramirez Creatinine [Mass/Vol] 1.15 mg/dL Critically high 0.55-1.02 [facility] Comment on above: Performed By: #### P TT, PT #### [facility] [address] [address] [address] Judy Ramirez EGFR-AF MONEGASQUE 60 mL/min/1.73m2 Normal >=60 [facility] Comment on above: Performed By: #### P TT, PT #### [facility] [address] [address] [address] Judy Ramirez EGFR-NON AF MONEGASQUE 50 mL/min/1.73m2 Critically low >=60 [facility] Comment on above: Performed By: #### P TT, PT #### [facility] [address] [address] [address] Judy Ramriez Glucose [Mass/Vol] 95 mg/dL Normal 74-106 [facility] Comment on above: Performed By: #### P TT, PT #### [facility] [address] [address] [address] Judy Ramirez Potassium [Moles/Vol] 4.2 mmol/L Normal 3.5-5.1 [facility] Comment on above: Performed By: #### P TT, PT #### [facility] [address] [address] [address] Judy Ramirez Sodium [Moles/Vol] 141 mmol/L Normal 136-145 [facility] Comment on above: Performed By: #### P TT, PT #### [facility] [address] [address] [address] Judy Ramirez Urea nitrogen [Mass/Vol] 24.0 mg/dL Critically high 7.0-18.0 [facility] Comment on above: Performed By: #### P TT, PT #### [facility] [address] [address] [address] Judy Ramirez Urea nitrogen/Creatinine [Mass ratio] 20.9 mg/mg Normal [facility] Comment on above: Performed By: #### P TT, PT #### [facility] [address] [address] [address] Judy Ramirez PROTIMEon 08-07-2022 INR Coag (PPP) [Relative time] {INR} Normal [facility] Comment on above: Performed By: #### P TT, PT #### [facility] [address] [place] [address] Dr. Judy Ramirez INR GUIDELINES SEE BELOW Normal [facility] Comment on above: Result Comment: KATHLEEN RED INR: 2.0 - 3.0 CONDITIONS NOT LISTED BELOW 2.5 - 3.5 FOR PROSTHETIC HEART VALVE REPLACEMENT 2.5 - 3.5 RECURRENT THROMBOSIS Performed By: #### P TT, PT #### [facility] [address] [place] [address] Dr. Judy Ramirez PT Coag (PPP) [Time] 9.7 s Normal 9.0-11.6 [facility] Comment on above: Performed By: #### P TT, PT #### [facility] [address] [place] [address] Dr. Judy Ramirez PTTon 08-07-2022 aPTT Coag (Bld) [Time] 33.6 s Normal 22.3-36.2 [facility] Comment on above: Performed By: #### P TT, PT #### [facility] [address] [place] [address] Dr. Judy Ramirez Consent for Procedure/Surger yon 08-06-2022 Consent for Procedure/Surgery [id number]#1.00CD:127 Normal [facility] Pre-Certification Formon Pre-Certification Form [id number]#1.00CD:127 Normal [facility] RAD - MISCon 08-06-2022 RAD - MISC [id number]#1.00CD:127 Normal [facility] CALCULI, URINARYon 2,[address] [facility] Comment on above: Performed By: #### P TT, PT #### [facility] [address] [place] [address] Dr. Judy Ramirez Ammonium Acid Urate Normal [facility] Comment on above: Performed By: #### P TT, PT #### [facility] [address] [address] [address] Judy Ramirez Bilirubin Ql (U) [facility] Comment on above: Performed By: #### P TT, PT #### [facility] [address] [address] [address] Judy Ramirez Ca Oxalate Dihydrate 20 % [facility] Comment on above: Performed By: #### P TT, PT #### [facility] [address] [address] [address] Judy Ramirez CaHPO4 (Brushite) [facility] Comment on above: Performed By: #### P TT, PT #### [facility] [address] [address] [address] Judy Ramirez Calcium Bilirubinate [facility] Comment on above: Performed By: #### P TT, PT #### [facility] [address] [address] [address] Judy Ramirez Calcium Carbonate [facility] Comment on above: Performed By: #### P TT, PT #### [facility] [address] [address] [address] Judy Ramirez Calcium Oxalate Monohydrate 80 % [facility] Comment on above: Performed By: #### P TT, PT #### [facility] [address] [address] [address] Judy Ramirez Calcium Palmitate [facility] Comment on above: Performed By: #### P TT, PT #### [facility] [address] [address] [address] Judy Ramirez Calcium Phosphate [facility] Comment on above: Performed By: #### P TT, PT #### [facility] [address] [address] [address] Judy Ramirez Calcium Stearate [facility] Comment on above: Performed By: #### P TT, PT #### [facility] [address] [address] [address] Judy Ramirez Carbonate Apatite [facility] Comment on above: Performed By: #### P TT, PT #### [facility] [address] [address] [address] Judy Ramirez Cellular Material [facility] Comment on above: Performed By: #### P TT, PT #### [facility] [address] [address] [address] Judy Ramirez Cholesterol [facility] Comment on above: Performed By: #### P TT, PT #### [facility] [address] [address] [address] Judy Ramirez Color (U) Brown Normal [facility] Comment on above: Performed By: #### P TT, PT #### [facility] [address] [place] [address] Dr. Judy Ramirez Comment [facility] Comment on above: Performed By: #### P TT, PT #### [facility] [address] [place] [address] Dr. Judy Ramirez Comment: Comment Normal [facility] Comment on above: Result Comment: Phys cliffan questions regarding Calculi Analysis contact [facility] at: [phone]. Performed By: #### P TT, PT #### [facility] [address] [place] [address] Dr. Judy Ramirez Composition Comment [facility] Comment on above: Result Comment: Perc entage (Represents the % composition) Performed By: #### P TT, PT #### [facility] [address] [place] [address] Dr. Judy Ramirez Cystine [facility] Comment on above: Performed By: #### P TT, PT #### [facility] [address] [place] [address] Dr. Judy Ramirez Disclaimer: Comment [facility] Comment on above: Result Comment: This test was developed and its performance characteristics determined by [facility]. It has not been cleared or approved by the Food and Drug Administration. Performed By: #### P TT, PT #### [facility] [address] [place] [address] Dr. Judy Ramirez Dried Blood [facility] Comment on above: Performed By: #### P TT, PT #### [facility] [address] [address] [address] Judy Ramirez Drug or Metabolite Normal [facility] Comment on above: Performed By: #### P TT, PT #### [facility] [address] [address] [address] Judy Ramirez Hydroxyapatite Normal [facility] Comment on above: Performed By: #### P TT, PT #### [facility] [address] [address] [address] Judy Ramirez Mg NH4 PO4 (Struvite) [facility] Comment on above: Performed By: #### P TT, PT #### [facility] [address] [place] [address] Dr. Judy Ramirez MgHPO4 (Newberyite) [facility] Comment on above: Performed By: #### P TT, PT #### [facility] [address] [place] [address] Dr. Judy Ramirez Other component(s) [facility] Comment on above: Performed By: #### P TT, PT #### [facility] [address] [place] [address] Dr. Judy Ramirez PDF . [facility] Comment on above: Performed By: #### P TT, PT #### [facility] [address] [place] [address] Dr. Judy Ramirez Photo Comment [facility] Comment on above: Result Comment: Phot ograph will follow under a separate cover Performed By: #### P TT, PT #### [facility] [address] [place] [address] Dr. Judy Ramirez Please note: Comment Normal [facility] Comment on above: Result Comment: Calc hannah report will follow via computer, mail or patient care delivery. Performed By: #### P TT, PT #### [facility] [address] [place] [address] Dr. Judy Ramirez Size 3x3 [facility] Comment on above: Result Comment: Mult iple pieces received. Dimensions of the largest piece reported. Performed By: #### P TT, PT #### [facility] [address] [place] [address] Dr. Judy Ramirez Sodium Acid Urate [facility] Comment on above: Performed By: #### P TT, PT #### [facility] [address] [address] [address] Judy Ramirez Source Comment [facility] Comment on above: Result Comment: Not provided Performed By: #### P TT, PT #### [facility] [address] [place] [address] Dr. Judy Ramirez Triamterene [facility] Comment on above: Performed By: #### P TT, PT #### [facility] [address] [place] [address] Dr. Judy Ramirez Uric Acid [facility] Comment on above: Performed By: #### P TT, PT #### [facility] [address] [place] [address] Dr. Judy Ramirez Uric Acid Dihydrate [facility] Comment on above: Performed By: #### P TT, PT #### [facility] [address] [address] [address] Judy Ramirez Weight 47 mg [facility] Comment on above: Performed By: #### P TT, PT #### [facility] [address] [place] [address] Dr. Judy Ramirez Xanthine [facility] Comment on above: Performed By: #### P TT, PT #### [facility] [address] [place] [address] Dr. Judy Ramirez RAD - MISCon 08-01-2022 RAD - MISC [id number]#1.00CD:127 Normal [facility] XR KUB 1 VIEWon 07-30-2022 XR KUB [...] by: JERICA HOOPER Date: 2022-07-30 09:[address] 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 Comment on above: Performed By: #### P TT, PT #### [facility] [address] [place] [address] Dr. Judy Ramirez CK.MB [Mass/Vol] 0.68 ng/mL Normal <=3.60 The [facility] Comment on above: Performed By: #### P TT, PT #### [facility] [address] [address] [address] Judy Ramirez HSTROP 4.3 pg/mL Normal 4.0-51.3 The [facility] Comment on above: Result Comment: CUT- OFF POINTS HAVE BEEN ESTABLISHED BASED ON THE FOURTH UNIVERSAL DEFINITIONS OF MYOCARDIAL INFARCTION. THE UPPER REFERENCE LIMIT (URL) OF TROPONIN, DEFINED THE 99TH PERCENTILE OF cTnI DISTRIBUTION IN A REFERENCE POPULATION, HAS BEEN CONFIRMED THE DECISION THRESHOLD FOR CO DIAGNOSIS. Performed By: #### P TT, PT #### [facility] [address] [address] [address] Judy Ramirez YASEMIN 31 ng/mL Normal 9-82 The [facility] Comment on above: Performed By: #### P TT, PT #### [facility] [address] [place] [address] Dr. Judy Ramirez CBC AUTO DIFFon 07-08-2022 BASO # 0.1 103/ul Normal 0.0-0.1 [facility] Comment on above: Performed By: #### P TT, PT #### [facility] [address] [place] [address] Dr. Judy Ramirez Basophils/100 WBC (Bld) 0.7 % Normal 0.2-2.0 [facility] Comment on above: Performed By: #### P TT, PT #### [facility] [address] [place] [address] Dr. Judy Ramirez EO # 0.2 103/ul Normal 0.0-0.7 [facility] Comment on above: Performed By: #### P TT, PT #### [facility] [address] [place] [address] Dr. Judy Ramirez Eosinophils/100 WBC (Bld) 2.1 % Normal 0.9-7.0 [facility] Comment on above: Performed By: #### P TT, PT #### [facility] [address] [place] [address] Dr. Judy Ramirez Erythrocyte distribution width (RBC) [Ratio] 12.8 % Normal 11.0-15.0 [facility] Comment on above: Performed By: #### P TT, PT #### [facility] [address] [place] [address] Dr. Judy Ramirez Hematocrit (Bld) [Volume fraction] 40.6 % Normal 36.0-48.0 [facility] Comment on above: Performed By: #### P TT, PT #### [facility] [address] [place] [address] Dr. Judy Ramirez Hemoglobin (Bld) [Mass/Vol] 13.6 g/dL Normal 12.0-16.0 The [facility] Comment on above: Performed By: #### P TT, PT #### [facility] [address] [place] [address] Dr. Judy Ramirez IG # 0.04 10e3/ul Critically high 0.00-0.03 [facility] Comment on above: Performed By: #### P TT, PT #### [facility] [address] [place] [address] Dr. Judy Ramirez IG % 0.6 % Critically high 0.0-0.5 The [facility] Comment on above: Performed By: #### P TT, PT #### [facility] [address] [address] [address] Judy Ramirez LYMPH # 2.6 103/ul Normal 1.2-3.8 The [facility] Comment on above: Performed By: #### P TT, PT #### [facility] [address] [address] [address] Judy Ramirez Lymphocytes/100 WBC (Bld) 36.8 % Normal 20.5-60.0 [facility] Comment on above: Performed By: #### P TT, PT #### [facility] [address] [address] [address] Judy Ramirez MANUAL DIFF REQ NO Normal [facility] Comment on above: Performed By: #### P TT, PT #### [facility] [address] [place] [address] Dr. Judy Ramirez MCH (RBC) [Entitic mass] 28.8 pg Normal 26.7-34.0 [facility] Comment on above: Performed By: #### P TT, PT #### [facility] [address] [place] [address] Dr. Judy Ramirez MCHC (RBC) [Mass/Vol] 33.5 g/dL Normal 29.9-35.2 [facility] Comment on above: Performed By: #### P TT, PT #### [facility] [address] [place] [address] Dr. Judy Ramirez MCV (RBC) [Entitic vol] 86.0 fL Normal 81.0-99.0 [facility] Comment on above: Performed By: #### P TT, PT #### [facility] [address] [place] [address] Dr. Judy Ramirez MONO # 0.4 103/ul Normal 0.3-0.8 The [facility] Comment on above: Performed By: #### P TT, PT #### [facility] [address] [place] [address] Dr. Judy Ramirez Monocytes/100 WBC (Bld) 6.0 % Normal 1.7-12.0 The [facility] Comment on above: Performed By: #### P TT, PT #### [facility] [address] [place] [address] Dr. Judy Ramirez NEUT # 3.8 103/ul Normal 1.4-6.5 [facility] Comment on above: Performed By: #### P TT, PT #### [facility] [address] [place] [address] Dr. Judy Ramirez Neutrophils/100 WBC (Bld) 53.8 % Normal 43.0-75.0 [facility] Comment on above: Performed By: #### P TT, PT #### [facility] [address] [place] [address] Dr. Judy Ramirez Platelet mean volume (Bld) [Entitic vol] 9.6 fL Normal 9.5-13.5 [facility] Comment on above: Performed By: #### P TT, PT #### [facility] [address] [place] [address] Dr. Judy Ramirez PLT 276 103/ul Normal 150-450 [facility] Comment on above: Performed By: #### P TT, PT #### [facility] [address] [place] [address] Dr. Judy Ramirez RBC 4.72 106/ul Normal 4.20-5.40 [facility] Comment on above: Performed By: #### P TT, PT #### [facility] [address] [place] [address] Dr. Judy Ramirez WBC 7.0 103/ul Normal 4.0-11.0 The [facility] Comment on above: Performed By: #### P TT, PT #### [facility] [address] [place] [address] Dr. Judy Ramriez CRPon 07-08-2022 CRP [Mass/Vol] mg/L Normal <=1.0 [facility] Comment on above: Performed By: #### P TT, PT #### [facility] [address] [place] [address] Dr. Judy Ramirez D-DIMERon 07-08-2022 D-DIMER 0.39 mg/L FEU Normal <=0.59 [facility] Comment on above: Performed By: #### P TT, PT #### [facility] [address] [place] [address] Dr. Judy Ramirez D-DIMER COMMENTS SEE BELOW Normal [facility] Comment on above: Result Comment: Incr eases [...] Performed By: #### P TT, PT #### [facility] [address] [place] [address] Dr. Judy Ramirez LIVER PROFILEon 07-08-2022 Albumin [Mass/Vol] 3.7 g/dL Normal 3.4-5.0 [facility] Comment on above: Performed By: #### T SH, CRP, MG, LIVER, BMP, CMADM #### [facility] [address] [place] [address] Dr. Judy Ramirez Albumin/Globulin [Mass ratio] 0.9 {ratio} Normal [facility] Comment on above: Performed By: #### T SH, CRP, MG, LIVER, BMP, CMADM #### [facility] [address] [place] [address] Dr. Judy Ramirez ALP [Catalytic activity/Vol] 98 U/L Normal 46-116 The [facility] Comment on above: Performed By: #### T SH, CRP, MG, LIVER, BMP, CMADM #### [facility] [address] [place] [address] Dr. Judy Ramirez ALT [Catalytic activity/Vol] 37 U/L Normal 14-59 [facility] Comment on above: Performed By: #### T SH, CRP, MG, LIVER, BMP, CMADM #### [facility] [address] [place] [address] Dr. Judy Ramirez AST [Catalytic activity/Vol] 19 U/L Normal 15-37 [facility] Comment on above: Performed By: #### T SH, CRP, MG, LIVER, BMP, CMADM #### [facility] [address] [place] [address] Dr. Judy Ramirez BILI, CONJUGATED 0.1 mg/dL Normal 0.0-0.2 [facility] Comment on above: Performed By: #### T SH, CRP, MG, LIVER, BMP, CMADM #### [facility] [address] [place] [address] Dr. Judy Ramirez Bilirubin [Mass/Vol] 0.4 mg/dL Normal 0.2-1.0 [facility] Comment on above: Performed By: #### T SH, CRP, MG, LIVER, BMP, CMADM #### [facility] [address] [place] [address] Dr. Judy Ramirez Globulin (S) [Mass/Vol] 4.0 g/dL Normal [facility] Comment on above: Performed By: #### T SH, CRP, MG, LIVER, BMP, CMADM #### [facility] [address] [place] [address] Dr. Judy Ramirez Protein [Mass/Vol] 7.7 g/dL Normal 6.4-8.2 [facility] Comment on above: Performed By: #### T SH, CRP, MG, LIVER, BMP, CMADM #### [facility] [address] [place] [address] Dr. Judy Ramirez MAGNESIUMon 07-08-2022 Magnesium [Mass/Vol] 2.1 mg/dL Normal 1.8-2.4 [facility] Comment on above: Performed By: #### T SH, CRP, MG, LIVER, BMP, CMADM #### [facility] [address] [place] [address] Dr. Judy Ramirez PROF CHEM 8 (BAS METB)on Anion gap [Moles/Vol] 11.0 mmol/L Normal [facility] Comment on above: Performed By: #### T SH, CRP, MG, LIVER, BMP, CMADM #### [facility] [address] [address] [address] Judy Ramirez Calcium [Mass/Vol] 9.4 mg/dL Normal 8.5-10.1 The [facility] Comment on above: Performed By: #### T SH, CRP, MG, LIVER, BMP, CMADM #### [facility] [address] [place] [address] Dr. Judy Ramirez Chloride [Moles/Vol] 102 mmol/L Normal 98-107 The [facility] Comment on above: Performed By: #### T SH, CRP, MG, LIVER, BMP, CMADM #### [facility] [address] [address] [address] Judy Ramirez CO2 [Moles/Vol] 29.4 mmol/L Normal 21.0-32.0 [facility] Comment on above: Performed By: #### T SH, CRP, MG, LIVER, BMP, CMADM #### [facility] [address] [place] [address] Dr. Judy Ramirez Creatinine [Mass/Vol] 1.04 mg/dL Critically high 0.55-1.02 [facility] Comment on above: Performed By: #### T SH, CRP, MG, LIVER, BMP, CMADM #### [facility] [address] [place] [address] Dr. Judy Ramirez EGFR-AF MONEGASQUE >60 Normal >=60 The [facility] Comment on above: Performed By: #### T SH, CRP, MG, LIVER, BMP, CMADM #### [facility] [address] [place] [address] Dr. Judy Ramirez EGFR-NON AF MONEGASQUE 56 mL/min/1.73m2 Critically low >=60 The [facility] Comment on above: Performed By: #### T SH, CRP, MG, LIVER, BMP, CMADM #### [facility] [address] [place] [address] Dr. Judy Ramirez Glucose [Mass/Vol] 98 mg/dL Normal 74-106 The [facility] Comment on above: Performed By: #### T SH, CRP, MG, LIVER, BMP, CMADM #### [facility] [address] [place] [address] Dr. Judy Ramirez Potassium [Moles/Vol] 4.4 mmol/L Normal 3.5-5.1 The [facility] Comment on above: Performed By: #### T SH, CRP, MG, LIVER, BMP, CMADM #### [facility] [address] [place] [address] Dr. Judy Ramirez Sodium [Moles/Vol] 138 mmol/L Normal 136-145 The [facility] Comment on above: Performed By: #### T SH, CRP, MG, LIVER, BMP, CMADM #### [facility] [address] [place] [address] Dr. Judy Ramirez Urea nitrogen [Mass/Vol] 25.0 mg/dL Critically high 7.0-18.0 [facility] Comment on above: Performed By: #### T SH, CRP, MG, LIVER, BMP, CMADM #### [facility] [address] [place] [address] Dr. Judy Ramirez Urea nitrogen/Creatinine [Mass ratio] 24.0 mg/mg Normal [facility] Comment on above: Performed By: #### T SH, CRP, MG, LIVER, BMP, CMADM #### [facility] [address] [place] [address] Dr. Judy Ramirez SED RATE [facility] 2022 SED RATE 27 mm/hr Normal <=30 The [facility] Comment on above: Performed By: #### S EDR #### [facility] [address] [place] [address] Dr. Judy Ramirez TSHon 07-08-2022 TSH 0.701 uIU/mL Normal 0.358-3.740 [facility] Comment on above: Performed By: #### T SH, CRP, MG, LIVER, BMP, CMADM #### [facility] [address] [place] [address] Dr. Judy Ramirez UA (CLEAN/CATCH) GENETICS PHYSICIAN/MICRO I F IND.on 07-08-2022 Bilirubin Ql (U) Negative Normal NEGATIVE [facility] Comment on above: Performed By: #### U ACSIND, UMICRO #### [facility] [address] [address] [address] Judy Ramirez Clarity (U) CLEAR Normal CLEAR The [facility] Comment on above: Performed By: #### U ACSIND, UMICRO #### [facility] [address] [address] [address] Judy Ramirez Color (U) LT. YELLOW Normal YELLOW The [facility] Comment on above: Performed By: #### U ACSIND, UMICRO #### [facility] [address] [address] [address] Judy Ramirez Glucose Ql (U) Negative Normal NEGATIVE [facility] Comment on above: Performed By: #### U ACSIND, UMICRO #### [facility] [address] [place] [address] Dr. Judy Ramirez Hemoglobin Ql (U) Negative Normal NEGATIVE [facility] Comment on above: Performed By: #### U ACSIND, UMICRO #### [facility] [address] [place] [address] Dr. Judy Ramirez Ketones Ql (U) Negative Normal NEGATIVE [facility] Comment on above: Performed By: #### U ACSSIDDHARTHA, UMICRO #### [facility] [address] [address] [address] Judy Ramirez LEUKOCYTES Negative Normal NEGATIVE [facility] Comment on above: Performed By: #### U ACSIND, UMICRO #### [facility] [address] [place] [address] Dr. Judy Ramirez Nitrite Ql (U) Negative Normal NEGATIVE [facility] Comment on above: Performed By: #### U ACSIND, UMICRO #### [facility] [address] [address] [address] Judy Ramirez pH (U) 6.0 [pH] Normal 5-9 The [facility] Comment on above: Performed By: #### U ACSIND, UMICRO #### [facility] [address] [place] [address] Dr. Judy Ramirez SPEC GRAVITY <=1.005 Abnormal 1.005-<=1.0 25 The [facility] Comment on above: Performed By: #### U ACSIND, UMICRO #### [facility] [address] [address] [address] Judy Ramirez UA PROTEIN Negative Normal NEGATIVE/ TRACE The [facility] Comment on above: Performed By: #### U ACSIND, UMICRO #### [facility] [address] [address] [address] Judy Ramirez UR MICRO IND MICROSCOPIC ALREADY ORDERED Normal The [facility] Comment on above: Performed By: #### U ACSIND, UMICRO #### [facility] [address] [place] [address] Dr. Judy Ramirez Urobilinogen Qn (U) 0.2 {Evelyn'U}/dL Normal 0.2 - 1. 0 [facility] Comment on above: Performed By: #### U ACSIND, UMICRO #### [facility] [address] [place] [address] Dr. Judy Ramirez URINE MICROSCOPIC ONLYon BACTERIA NONE SEEN Normal NONE SEEN The [facility] Comment on above: Performed By: #### U ACSIND, UMICRO #### [facility] [address] [place] [address] Dr. Judy Ramirez Bacteria identified Cx Nom (U) NOT INDICATED Normal The [facility] Comment on above: Performed By: #### U ACSIND, UMICRO #### [facility] [address] [place] [address] Dr. Judy Ramirez CAST NONE SEEN Normal NONE SEEN The [facility] Comment on above: Performed By: #### U ACSIND, UMICRO #### [facility] [address] [place] [address] Dr. Judy Ramirez Crystals LM Nom (Urine sed) NONE SEEN Normal NONE SEEN The [facility] Comment on above: Performed By: #### U ACSIND, UMICRO #### [facility] [address] [place] [address] Dr. Judy Ramirez Epithelial cells LM Ql (Urine sed) FEW Abnormal NONE SEEN /RARE The [facility] Comment on above: Performed By: #### U ACSIND, UMICRO #### [facility] [address] [address] [address] Judy Ramirez MUCOUS TRACE Abnormal NONE SEEN The [facility] Comment on above: Performed By: #### U ACSIND, UMICRO #### [facility] [address] [place], [place] [address] Dr. Judy Ramirez RBC NONE SEEN Abnormal 0-2 The [facility] Comment on above: Performed By: #### [facility] #### [facility] [address] [address] [address] Judy Ramirez WBC NONE SEEN Normal NONE SEEN The [facility] Comment on above: Performed By: #### U [facility], UMICRO #### [facility] [address] [address] [address] Judy Ramirez Operative Reporton Operative Report [id number]#1.00CD:127 Normal [facility] RAD - MISCon 07-02-2022 RAD - MISC [id number]#1.00CD:127 Normal [facility] XR KUB 1 VIEWon 07-02-2022 XR KUB [...] by: JERICA HOOPER Date: 2022-07-02 12:[address] [facility] ECG 12-Leadon 06-30-2022 ECG 12-Lead [id number]#1.00CD:127 Normal [facility] Lab Reportson 06-30-2022 Lab Reports [id number]#1.00CD:127 Normal [facility] CBC AUTO DIFFon 06-29-2022 BASO # 0.0 103/ul Normal 0.0-0.1 [facility] Comment on above: Performed By: #### P TT, PT #### [facility] [address] [place] [address] Dr. Judy Ramirez Basophils/100 WBC (Bld) 0.4 % Normal 0.2-2.0 [facility] Comment on above: Performed By: #### P TT, PT #### [facility] [address] [place] [address] Dr. Judy Ramirez EO # 0.1 103/ul Normal 0.0-0.7 [facility] Comment on above: Performed By: #### P TT, PT #### [facility] [address] [place] [address] Dr. Judy Ramirez Eosinophils/100 WBC (Bld) 1.5 % Normal 0.9-7.0 [facility] Comment on above: Performed By: #### P TT, PT #### [facility] [address] [place] [address] Dr. Judy Ramirez Erythrocyte distribution width (RBC) [Ratio] 13.1 % Normal 11.0-15.0 [facility] Comment on above: Performed By: #### P TT, PT #### [facility] [address] [place] [address] Dr. Judy Ramirez Hematocrit (Bld) [Volume fraction] 40.7 % Normal 36.0-48.0 [facility] Comment on above: Performed By: #### P TT, PT #### [facility] [address] [place] [address] Dr. Judy Ramirez Hemoglobin (Bld) [Mass/Vol] 13.8 g/dL Normal 12.0-16.0 [facility] Comment on above: Performed By: #### P TT, PT #### [facility] [address] [place] [address] Dr. Judy Ramirez IG # 0.03 10e3/ul Normal 0.00-0.03 [facility] Comment on above: Performed By: #### P TT, PT #### [facility] [address] [place] [address] Dr. Judy Ramirez IG % 0.4 % Normal 0.0-0.5 [facility] Comment on above: Performed By: #### P TT, PT #### [facility] [address] [place] [address] Dr. Judy Ramirez LYMPH # 1.9 103/ul Normal 1.2-3.8 [facility] Comment on above: Performed By: #### P TT, PT #### [facility] [address] [place] [address] Dr. Judy Ramirez Lymphocytes/100 WBC (Bld) 24.5 % Normal 20.5-60.0 [facility] Comment on above: Performed By: #### P TT, PT #### [facility] [address] [place] [address] Dr. Judy Ramirez MANUAL DIFF REQ NO Normal [facility] Comment on above: Performed By: #### P TT, PT #### [facility] [address] [place] [address] Dr. Judy Ramirez MCH (RBC) [Entitic mass] 28.4 pg Normal 26.7-34.0 [facility] Comment on above: Performed By: #### P TT, PT #### [facility] [address] [place] [address] Dr. Judy Ramirez MCHC (RBC) [Mass/Vol] 33.9 g/dL Normal 29.9-35.2 [facility] Comment on above: Performed By: #### P TT, PT #### [facility] [address] [place] [address] Dr. Judy Ramirez MCV (RBC) [Entitic vol] 83.7 fL Normal 81.0-99.0 [facility] Comment on above: Performed By: #### P TT, PT #### [facility] [address] [place] [address] Dr. Judy Ramirez MONO # 0.5 103/ul Normal 0.3-0.8 [facility] Comment on above: Performed By: #### P TT, PT #### [facility] [address] [place] [address] Dr. Judy Ramirez Monocytes/100 WBC (Bld) 6.5 % Normal 1.7-12.0 [facility] Comment on above: Performed By: #### P TT, PT #### [facility] [address] [place] [address] Dr. Judy Ramirez NEUT # 5.1 103/ul Normal 1.4-6.5 [facility] Comment on above: Performed By: #### P TT, PT #### [facility] [address] [place] [address] Dr. Judy Ramirez Neutrophils/100 WBC (Bld) 66.7 % Normal 43.0-75.0 [facility] Comment on above: Performed By: #### P TT, PT #### [facility] [address] [place] [address] Dr. Judy Ramirez Platelet mean volume (Bld) [Entitic vol] 9.5 fL Normal 9.5-13.5 [facility] Comment on above: Performed By: #### P TT, PT #### [facility] [address] [place] [address] Dr. Judy Ramirez PLT 238 103/ul Normal 150-450 The [facility] Comment on above: Performed By: #### P TT, PT #### [facility] [address] [place] [address] Dr. Judy Ramirez RBC 4.86 106/ul Normal 4.20-5.40 [facility] Comment on above: Performed By: #### P TT, PT #### [facility] [address] [place] [address] Dr. Judy Ramirez WBC 7.6 103/ul Normal 4.0-11.0 [facility] Comment on above: Performed By: #### P TT, PT #### [facility] [address] [place] [address] Dr. Judy Ramirez Lab Reportson 06-29-2022 Lab Reports [id number]#1.00CD:127 Normal [facility] PROF CHEM 8 (BAS METB)on Anion gap [Moles/Vol] 11.5 mmol/L Normal Th e [facility] Comment on above: Performed By: #### B MP #### [facility] [address] [address] [address] Judy Ramirez Calcium [Mass/Vol] 9.9 mg/dL Normal 8.5-10.1 [facility] Comment on above: Performed By: #### B MP #### [facility] [address] [address] [address] Judy Ramirez Chloride [Moles/Vol] 105 mmol/L Normal 98-107 [facility] Comment on above: Performed By: #### B MP #### [facility] [address] [address] [address] Judy Ramirez CO2 [Moles/Vol] 28.1 mmol/L Normal 21.0-32.0 [facility] Comment on above: Performed By: #### B MP #### [facility] [address] [address] [address] Judy Ramirez Creatinine [Mass/Vol] 1.11 mg/dL Critically high 0.55-1.02 [facility] Comment on above: Performed By: #### B MP #### [facility] [address] [address] [address] Judy Ramirez EGFR-AF MONEGASQUE >60 Normal >=60 The [facility] Comment on above: Performed By: #### B MP #### [facility] [address] [address] [address] Judy Ramirez EGFR-NON AF MONEGASQUE 52 mL/min/1.73m2 Critically low >=60 The [facility] Comment on above: Performed By: #### B MP #### [facility] [address] [address] [address] Judy Ramirez Glucose [Mass/Vol] 97 mg/dL Normal 74-106 [facility] Comment on above: Performed By: #### B MP #### [facility] [address] [address] [address] Judy Ramirez Potassium [Moles/Vol] 3.6 mmol/L Normal 3.5-5.1 The [facility] Comment on above: Performed By: #### B MP #### [facility] [address] [address] [address] Judy Ramirez Sodium [Moles/Vol] 141 mmol/L Normal 136-145 The [facility] Comment on above: Performed By: #### B MP #### [facility] [address] [address] [address] Judy Ramirez Urea nitrogen [Mass/Vol] 15.0 mg/dL Normal 7.0-18.0 [facility] Comment on above: Performed By: #### B MP #### [facility] [address] [address] [address] Judy Ramirez Urea nitrogen/Creatinine [Mass ratio] 13.5 mg/mg Normal [facility] Comment on above: Performed By: #### B MP #### [facility] [address] [address] [address] Judy Ramirez PROTIMEon 06-29-2022 INR Coag (PPP) [Relative time] {INR} Normal [facility] Comment on above: Performed By: #### S EDR #### [facility] [address] [place] [address] Dr. Judy Ramirez INR GUIDELINES SEE BELOW Normal The [facility] Comment on above: Result Comment: KATHLEEN RED INR: 2.0 - 3.0 CONDITIONS NOT LISTED BELOW 2.5 - 3.5 FOR PROSTHETIC HEART VALVE REPLACEMENT 2.5 - 3.5 RECURRENT THROMBOSIS Performed By: #### S EDR #### [facility] [address] [address] [address] Judy Ramirez PT Coag (PPP) [Time] 9.8 s Normal 9.0-11.6 [facility] Comment on above: Performed By: #### S EDR #### [facility] [address] [address] [address] Judy Ramirez PTTon 06-29-2022 aPTT Coag (Bld) [Time] 35.3 s Normal 22.3-36.2 The [facility] Comment on above: Performed By: #### S EDR #### [facility] [address] [place] [address] Dr. Judy Ramirez RAD - CT Reporton 06-29-2022 RAD - CT Report [id number]#1.00CD:127 Normal [facility] RAD - MISCon 06-29-2022 RAD - MISC [id number]#1.00CD:127 [facility] Consent for Procedure/Surger yon 06-23-2022 Consent for Procedure/Surgery [id number]#1.00CD:127 [facility] Physician Referralon 023 Physician Referral [id number]#1.00CD:127 [facility] Pre-Certification Formon Pre-Certification Form [id number]#1.00CD:127 [facility] Ambulatory Visit Summaryon 0 06-22-2022 Ambulatory Visit Summary CINTHIA BADILLO :1970 Visit Date:06/22/2022 Ambulatory Visit Instructions Your Diagnosis Kidney stone Left flank pain Tests Performed Urnls Dip Stick Auto w/o Microscopy POC 96077 Your Care Team Attending Physician - PATI DOHERTY, Anand Fonseca Primary Care Physician - KAMILLA PATTON CNP This Is Your Medications List Contact prescribing physician if questions or concerns amitriptyline (amitriptyline 10 mg Tab) ascorbic acid (Vitamin C) cranberry (Cranberry) lactobacillus acidophilus (Acidophilus Probiotic Blend) melatonin (Melatonin) multivitamin multivitamin with minerals (Viactiv Soft Calcium Chews) omega-3 polyunsaturated fatty acids ([place]-3 oral capsule) pantoprazole (Pantoprazole [address] Tab) trazodone (traZODONE 50 mg Tab) Procedures Performed Cholecystectomy, Hysterectomy. Discharge Vitals Height 165 cm Height 65 in Weight 92 kg Weight 202.4 lb BMI 33.79 What to do next You Need to Schedule the Following Appointments Follow Up with PATI DOHERTY, NICHELLE Sanabria When: Where: [facility] [address], [place] [address]- Medications What How Much When Instructions Unchanged [...] or concerns Unchanged omega-3 polyunsaturated fatty acids ([place]-3 oral capsule) Contact prescribing physician if questions or concerns Unchanged pantoprazole (Pantoprazole [address] Tab) Contact prescribing physician if questions or concerns Unchanged trazodone (traZODONE 50 mg Tab) Contact prescribing physician if questions or concerns Test Results Urnls Dip Stick Auto w/o Microscopy POC [id number] (06/22/2022) Bilirubin Urine Dipstick - Negative Blood Urine Dipstick - Negative Glucose Urine Dipstick - Negative Ketones Urine Dipstick - Negative Leukocytes Urine Dipstick - Negative Nitrite Urine Dipstick - Negative Protein Urine Dipstick - Negative Specific [place] Urine Dipstick - <=1.005 Urine Appearance Urine [...] allow each (more content not included)... Normal [facility] Patient Educationon 06-23-19 23 Patient Education Urology [...] Rhubarb. ? Beets. ? Potato chips and indian fries. ? Nuts. ? If you regularly take a diuretic medicine, make sure to eat at least 1?2 fruits or vegetables high in potassium each day. These include: ? Avocado. ? Banana. ? Coamo, prune, carrot, or tomato juice. ? Baked [...] Salad dr (more content not included)... Normal [facility] XR KUB 1 VIEWon 06-20-2022 XR KUB [...] M SOLOMON Date: 2022-06-20 12:12 Normal [facility] MAMM SCREEN 3D LEE CADon 06-16-2022 MG MAMM SCREEN 3D LEE CAD Patient: CINTHIA BADILLO Exam Date: 06/16/2022 : 1970 Gender:F Ordering : ZELALEM PATTON [facility] Admission #: [id number] Family : Order #: [id number] CLICK HERE TO VIEW EXAM RADIOLOGY REPORT [...] breast cancer at age 80. LOCATION: The [facility] BREAST COMPOSITION: Scattered areas fibroglandular density. FINDINGS: [...] Solomon MD on 06/17/2022 at 08:[address] [facility] CT ABD/PELV W CONon 06-04-19 CT ABD/PELV [...] JERICA HOOPER Date: 2022-06-03 08:59 Normal The [facility] AMYLASEon 05-23-2022 Amylase [Catalytic activity/Vol] 74 U/L Normal 25-115 The [facility] Comment on above: Performed By: #### S EDR #### [facility] [address] [address] [address] Judy Ramirez CBC AUTO DIFFon 05-23-2022 BASO # 0.0 103/ul Normal 0.0-0.1 [facility] Comment on above: Performed By: #### S EDR #### [facility] [address] [address] [address] Judy Ramirez Basophils/100 WBC (Bld) 0.5 % Normal 0.2-2.0 [facility] Comment on above: Performed By: #### S EDR #### [facility] [address] [place] [address] Dr. Judy Ramirez EO # 0.1 103/ul Normal 0.0-0.7 [facility] Comment on above: Performed By: #### S EDR #### [facility] [address] [place] [address] Dr. Judy Ramirez Eosinophils/100 WBC (Bld) 2.6 % Normal 0.9-7.0 [facility] Comment on above: Performed By: #### S EDR #### [facility] [address] [place] [address] Dr. Judy Ramirez Erythrocyte distribution width (RBC) [Ratio] 12.4 % Normal 11.0-15.0 [facility] Comment on above: Performed By: #### S EDR #### [facility] [address] [place] [address] Dr. Judy Ramirez Hematocrit (Bld) [Volume fraction] 41.1 % Normal 36.0-48.0 [facility] Comment on above: Performed By: #### S EDR #### [facility] [address] [place] [address] Dr. Judy Ramirez Hemoglobin (Bld) [Mass/Vol] 13.8 g/dL Normal 12.0-16.0 [facility] Comment on above: Performed By: #### S EDR #### [facility] [address] [place] [address] Dr. Judy Ramirez IG # 0.01 10e3/ul Normal 0.00-0.03 [facility] Comment on above: Performed By: #### S EDR #### [facility] [address] [place] [address] Dr. Judy Ramirez IG % 0.2 % Normal 0.0-0.5 [facility] Comment on above: Performed By: #### S EDR #### [facility] [address] [place] [address] Dr. Judy Ramirez LYMPH # 2.1 103/ul Normal 1.2-3.8 [facility] Comment on above: Performed By: #### S EDR #### [facility] [address] [place] [address] Dr. Judy Ramirez Lymphocytes/100 WBC (Bld) 37.8 % Normal 20.5-60.0 [facility] Comment on above: Performed By: #### S EDR #### [facility] [address] [place] [address] Dr. Judy Ramirez MANUAL DIFF REQ NO Normal [facility] Comment on above: Performed By: #### S EDR #### [facility] [address] [place] [address] Dr. Judy Ramirez MCH (RBC) [Entitic mass] 28.4 pg Normal 26.7-34.0 [facility] Comment on above: Performed By: #### S EDR #### [facility] [address] [place] [address] Dr. Judy Ramirez MCHC (RBC) [Mass/Vol] 33.6 g/dL Normal 29.9-35.2 [facility] Comment on above: Performed By: #### S EDR #### [facility] [address] [place] [address] Dr. Judy Ramirez MCV (RBC) [Entitic vol] 84.6 fL Normal 81.0-99.0 [facility] Comment on above: Performed By: #### S EDR #### [facility] [address] [place] [address] Dr. Judy Ramirez MONO # 0.3 103/ul Normal 0.3-0.8 [facility] Comment on above: Performed By: #### S EDR #### [facility] [address] [place] [address] Dr. Judy Ramirez Monocytes/100 WBC (Bld) 5.5 % Normal 1.7-12.0 The [facility] Comment on above: Performed By: #### S EDR #### [facility] [address] [place] [address] Dr. Judy Ramirez NEUT # 2.9 103/ul Normal 1.4-6.5 The [facility] Comment on above: Performed By: #### S EDR #### [facility] [address] [address] [address] Judy Ramirez Neutrophils/100 WBC (Bld) 53.4 % Normal 43.0-75.0 [facility] Comment on above: Performed By: #### S EDR #### [facility] [address] [address] [address] Judy Ramirez Platelet mean volume (Bld) [Entitic vol] 9.4 fL Critically low 9.5-13.5 [facility] Comment on above: Performed By: #### S EDR #### [facility] [address] [address] [address] Judy Ramirez PLT 274 103/ul Normal 150-450 [facility] Comment on above: Performed By: #### S EDR #### [facility] [address] [address] [address] Judy Ramirez RBC 4.86 106/ul Normal 4.20-5.40 [facility] Comment on above: Performed By: #### S EDR #### [facility] [address] [address] [address] Judy Ramirez WBC 5.5 103/ul Normal 4.0-11.0 [facility] Comment on above: Performed By: #### S EDR #### [facility] [address] [place] [address] Dr. Judy Ramirez LIPASEon 05-23-2022 Lipase [Catalytic activity/Vol] 97.0 U/L Normal 73.0-393.0 [facility] Comment on above: Performed By: #### U ACSIND, UMICRO #### [facility] [address] [address] [address] Judy Ramirez LIPID PROFILEon 05-23-2022 CHOL-HDL RATIO NORM SEE BELOW Normal The [facility] Comment on above: Result Comment: 3.3 - 4.4 LOW RISK 4.4 - 7.1 AVERAGE RISK 7.1 - 11.0 MODERATE RISK >11.0 HIGH RISK Performed By: #### S EDR #### [facility] [address] [address] [address] Judy Ramirez Cholesterol [Mass/Vol] 203 mg/dL Critically high <=200 The [facility] Comment on above: Performed By: #### S EDR #### [facility] [address] [address] [address] Judy Ramirez Cholesterol in HDL [Mass/Vol] 48 mg/dL Normal 40-60 [facility] Comment on above: Performed By: #### S EDR #### [facility] [address] [address] [address] Judy Ramirez Cholesterol in LDL [Mass/Vol] 130.0 mg/dL Normal [facility] Comment on above: Performed By: #### S EDR #### [facility] [address] [address] [address] Judy Raimrez Cholesterol.total/Cho lesterol in HDL [Mass ratio] 4.2 {ratio} Normal [facility] Comment on above: Performed By: #### S EDR #### [facility] [address] [address] [address] Judy Ramirez HDL NORMAL > or = 60 mg/dl - LO W CARDIOVASCULAR RISK <40 mg/dl - HIGH CARDIOVASCULAR RISK Normal [facility] Comment on above: Performed By: #### S EDR #### [facility] [address] [address] [address] Judy Ramirez LDL CALC NORMAL SEE BELOW Normal The [facility] Comment on above: Result Comment: <100 mg/dl OPTIMAL 100 - 129 mg/dl NEAR OR ABOVE OPTIMAL 130 - 159 mg/dl BORDERLINE HIGH 160 - 189 mg/dl HIGH >190 mg/dl VERY HIGH Performed By: #### S EDR #### [facility] [address] [address] [address] Judy Ramirez Triglyceride [Mass/Vol] 125 mg/dL Normal <=150 The [facility] Comment on above: Performed By: #### S EDR #### [facility] [address] [address] [address] Judy Ramirez VLDL CALC 25.0 mg/dL Normal [facility] Comment on above: Performed By: #### S EDR #### [facility] [address] [place] [address] Dr. Judy Ramirez PROF 14(COMP METB)on 023 Albumin [Mass/Vol] 3.5 g/dL Normal 3.4-5.0 [facility] Comment on above: Performed By: #### U ACSIND, UMICRO #### [facility] [address] [place] [address] Dr. Judy Ramirez Albumin/Globulin [Mass ratio] 0.9 {ratio} Normal [facility] Comment on above: Performed By: #### U ACSIND, UMICRO #### [facility] [address] [place] [address] Dr. Judy Ramirez ALP [Catalytic activity/Vol] 86 U/L Normal 46-116 [facility] Comment on above: Performed By: #### U ACSSIDDHARTHA, UMICRO #### [facility] [address] [place] [address] Dr. Judy Ramirez ALT [Catalytic activity/Vol] 32 U/L Normal 14-59 [facility] Comment on above: Performed By: #### U ACSSIDDHARTHA, UMICRO #### [facility] [address] [place] [address] Dr. Judy Ramirez Anion gap [Moles/Vol] 9.6 mmol/L Normal [facility] Comment on above: Performed By: #### U ACSSIDDHARTHA, UMICRO #### [facility] [address] [place] [address] Dr. Judy Ramirez AST [Catalytic activity/Vol] 19 U/L Normal 15-37 [facility] Comment on above: Performed By: #### U ACSIND, UMICRO #### [facility] [address] [place] [address] Dr. Judy Ramirez Bilirubin [Mass/Vol] 0.5 mg/dL Normal 0.2-1.0 [facility] Comment on above: Performed By: #### U ACSIND, UMICRO #### [facility] [address] [place] [address] Dr. Judy Ramirez Calcium [Mass/Vol] 9.3 mg/dL Normal 8.5-10.1 The [facility] Comment on above: Performed By: #### U ADITYA MARTINEZRO #### [facility] [address] [address] [address] Judy Ramirez Chloride [Moles/Vol] 106 mmol/L Normal 98-107 The [facility] Comment on above: Performed By: #### U ADITYA MARTINEZRO #### [facility] [address] [address] [address] Judy Ramirez CO2 [Moles/Vol] 30.7 mmol/L Normal 21.0-32.0 The [facility] Comment on above: Performed By: #### ADITYA RATLIFFRO #### [facility] [address] [place] [address] Dr. Judy Ramirez Creatinine [Mass/Vol] 0.92 mg/dL Normal 0.55-1.02 [facility] Comment on above: Performed By: #### ADITYA RATLIFFRO #### [facility] [address] [place] [address] Dr. Judy Ramirez EGFR-AF MONEGASQUE >60 Normal >=60 The [facility] Comment on above: Performed By: #### ADITYA RATLIFFRO #### [facility] [address] [place] [address] Dr. Judy Ramirez EGFR-NON AF MONEGASQUE >60 Normal >=60 The [facility] Comment on above: Performed By: #### ADITYA RATLIFFRO #### [facility] [address] [place] [address] Dr. Judy Ramirez Globulin (S) [Mass/Vol] 3.9 g/dL Normal The [facility] Comment on above: Performed By: #### U ADITYA MARTINEZRO #### [facility] [address] [place] [address] Dr. Judy Ramirez Glucose [Mass/Vol] 95 mg/dL Normal 74-106 The [facility] Comment on above: Performed By: #### U ADITYA MARTINEZRO #### [facility] [address] [place] [address] Dr. Judy Ramirez Potassium [Moles/Vol] 4.3 mmol/L Normal 3.5-5.1 The [facility] Comment on above: Performed By: #### U ACSSIDDHARTHA, UMICRO #### [facility] [address] [place] [address] Dr. Judy Ramirez Protein [Mass/Vol] 7.4 g/dL Normal 6.4-8.2 The [facility] Comment on above: Performed By: #### U ACSSIDDHARTHA, UMICRO #### [facility] [address] [place] [address] Dr. Judy Ramirez Sodium [Moles/Vol] 142 mmol/L Normal 136-145 The [facility] Comment on above: Performed By: #### U ACSSIDDHARTHA, UMICRO #### [facility] [address] [place] [address] Dr. Judy Ramirez Urea nitrogen [Mass/Vol] 17.0 mg/dL Normal 7.0-18.0 The [facility] Comment on above: Performed By: #### U ACSSIDDHARTHA, UMICRO #### [facility] [address] [place] [address] Dr. Judy Ramirez Urea nitrogen/Creatinine [Mass ratio] 18.5 mg/mg Normal The [facility] Comment on above: Performed By: #### U ACSSIDDHARTHA, ICRO #### [facility] [address] [place] [address] Dr. Judy Ramirez UA RANDOM W/MICROSCOPICon BACTERIA NONE SEEN Normal NONE SEEN The [facility] Comment on above: Performed By: #### P TT, PT #### [facility] [address] [place] [address] Dr. Judy Ramirez Bilirubin Ql (U) Negative Normal NEGATIVE The [facility] Comment on above: Performed By: #### P TT, PT #### [facility] [address] [place] [address] Dr. Judy Ramirez CAST NONE SEEN Normal NONE SEEN [facility] Comment on above: Performed By: #### P TT, PT #### [facility] [address] [place] [address] Dr. Judy Ramirez Clarity (U) CLEAR Normal CLEAR The [facility] Comment on above: Performed By: #### P TT, PT #### [facility] [address] [place] [address] Dr. uJdy Ramirez Color (U) LT. YELLOW Normal YELLOW The [facility] Comment on above: Performed By: #### P TT, PT #### [facility] [address] [place] [address] Dr. Judy Ramirez Crystals LM Nom (Urine sed) NONE SEEN Normal NONE SEEN [facility] Comment on above: Performed By: #### P TT, PT #### [facility] [address] [place] [address] Dr. Judy Ramirez Epithelial cells LM Ql (Urine sed) FEW Abnormal NONE SEEN /RARE The [facility] Comment on above: Performed By: #### P TT, PT #### [facility] [address] [place] [address] Dr. Judy Ramirez Glucose Ql (U) Negative Normal NEGATIVE The [facility] Comment on above: Performed By: #### P TT, PT #### [facility] [address] [place] [address] Dr. Judy Ramirez Hemoglobin Ql (U) TRACE-INTACT Abnormal NEGATIVE [facility] Comment on above: Performed By: #### P TT, PT #### [facility] [address] [place] [address] Dr. Judy Ramirez Ketones Ql (U) Negative Normal NEGATIVE The [facility] Comment on above: Performed By: #### P TT, PT #### [facility] [address] [place] [address] Dr. Judy Ramirez LEUKOCYTES Negative Normal NEGATIVE [facility] Comment on above: Performed By: #### P TT, PT #### [facility] [address] [place] [address] Dr. Judy Ramirez MUCOUS NONE SEEN Normal NONE SEEN [facility] Comment on above: Performed By: #### P TT, PT #### [facility] [address] [place] [address] Dr. Judy Ramirze Nitrite Ql (U) Negative Normal NEGATIVE The [facility] Comment on above: Performed By: #### P TT, PT #### [facility] [address] [place] [address] Dr. Judy Ramirez pH (U) 7.0 [pH] Normal 5-9 The [facility] Comment on above: Performed By: #### P TT, PT #### [facility] [address] [place] [address] Dr. Judy Ramirez RBC NONE SEEN Abnormal 0-2 The [facility] Comment on above: Performed By: #### P TT, PT #### [facility] [address] [place] [address] Dr. Judy Ramirez SPEC GRAVITY 1.010 Normal 1.005-<=1.[address] [facility] Comment on above: Performed By: #### P TT, PT #### [facility] [address] [place] [address] Dr. Judy Ramirez UA PROTEIN Negative Normal NEGATIVE/ TRACE The [facility] Comment on above: Performed By: #### P TT, PT #### [facility] [address] [place] [address] Dr. Judy Ramirez Urobilinogen Qn (U) 0.2 {Evelyn'U}/dL Normal 0.2 - 1. 0 The [facility] Comment on above: Performed By: #### P TT, PT #### [facility] [address] [place] [address] Dr. Judy Ramirez WBC NONE SEEN Normal NONE SEEN The [facility] Comment on above: Performed By: #### P TT, PT #### [facility] [address] [place] [address] Dr. Judy Ramirez CULTURE THROATon 12-24-2021 CULTURE [...] F Tetracycline >=16 R F Normal The [facility] Comment on above: Performed By: #### S EDR #### [facility] [address] [place], [place] [address] Dr. Judy Ramirez Covid-19 PCR ([facility])on 12-13 SARS-CoV-2 (COVID-19) RNA CAROLA+probe Ql (Unsp spec) Not detected Normal NOT DETECTED The [facility] Comment on above: Result Comment: This test is not yet approved or cleared by the [place] FDA. When there are no FDA-approved or cleared tests available, and other criteria are met, FDA can make tests available under an emergency access mechanism called an Emergency Use Authorization (EUA). The EUA for this test is supported by the [place] of Health and Human Service's (HHS's) declaration [...] Performed By: #### U ACSIND, UMICRO #### [facility] [address] [place], [place] [address] Dr. Judy Ramirez COVID-19 Positive/NegativeOr dered By: Luis M Juarez on 08-13-2021 SARS-CoV-2 (COVID-19) N gene CAROLA+probe Ql (Resp) Negative Negative [facility] Comment on above: Testing for SARS-CoV -2 by RT-PCR This test was developed and its performance characteristics determined by [employer]) and validated at the [facility]. This test has not been FDA cleared [...] 167.6 cm Zonia Pak DPM Work Phone: [facility] 04-20-2023 15:47-0500 Body mass index (BMI) [Ratio] 34.22 kg/m2 Zonia Pak DPM Work Phone: [facility] 04-20-2023 15:47-0500 Body weight 96.16 kg Zonia Reyes DPM Work Phone: [facility] 12-28-2022 14:59-0400 Blood Pressure Location Anand LOPEZ [facility] 12-28-2022 14:59-0400 Diastolic blood pressure 86 mm[Hg] Anand LOPEZ [facility] 12-28-2022 14:59-0400 Heart rate 80 /min Anand LOPEZ [facility] 12-28-2022 14:59-0400 Respiratory rate 16 /min Anand LOPEZ [facility] 12-28-2022 14:59-0400 Systolic blood pressure 121 mm[Hg] Anand LOPEZ [facility] 09-30-2022 09:18-0400 Diastolic blood pressure 62 mm[Hg] [facility] 09-30-2022 09:18-0400 Heart rate 69 /min [facility] 09-30-2022 09:18-0400 Respiratory rate 16 /min [facility] 09-30-2022 09:18-0400 SaO2% (BldA) [Mass fraction] 98 % [facility] 09-30-2022 09:18-0400 Systolic blood pressure 96 mm[Hg] [facility] 09-30-2022 07:14-0400 Body height 165.1 cm [facility] 09-30-2022 07:14-0400 Body temperature 97.6 [degF] [facility] 09-30-2022 07:14-0400 Body weight 88.45 kg [facility] 08-13-2022 15:00-0400 Body weight 107 mg [facility] 08-15-2021 09:15-0400 Diastolic blood pressure 64 mm[Hg] DO Luis M Hykes Work Phone: [facility] 08-15-2021 09:15-0400 Heart rate 80 /min DO Luis M Hykes Work Phone: [facility] 08-15-2021 09:15-0400 Respiratory rate 20 /min DO Luis M Hykes Work Phone: [facility] 08-15-2021 09:15-0400 SaO2% (BldA) [Mass fraction] 100 % DO Luis M Hykes Work Phone: [facility] 08-15-2021 09:15-0400 Systolic blood pressure 112 mm[Hg] DO Luis M Hykes Work Phone: [facility] 08-15-2021 07:15-0400 Body height 166.37 cm DO Luis M Hykes Work Phone: [facility] 08-15-2021 07:15-0400 Body mass index (BMI) [Ratio] 32.8 kg/m2 DO Luis M Hykes Work Phone: [facility] 08-15-2021 07:15-0400 Body temperature 98.1 [degF] DO Luis M Juarez Work Phone: [facility] 08-15-2021 [id number]:15040 Body weight 90.71 kg DO Luis M Juarez Work Phone: [facility] Encounters Encounter Date Encounter Type Care Provider Facility Start: 01-07-2024 ambulatory Anand LOPEZ Facili ty:[facility] Start: 08-02-2023 ambulatory Kristine stack PA-C Facility:[facility] Start: 06-21-2023 ambulatory Kristine stack PA-C Facility:[facility] Start: 05-17-2023 End: 05-17-2023 ambulatory KAMILLA AICHHOLZ Not Available Start: 04-28-2023 Refill Kamilla Aichholz [employer] Work Phone: [facility] Comment on above: Gastroesophageal ref lux disease without esophagitis Start: 04-20-2023 End: 04-20-2023 ambulatory ZONIA PAK Not Available Start: 04-20-2023 End: 04-20-2023 Office outpatient visit 15 minutes Zonia Pak DPM Work Phone: [facility] Comment on above: Onychomycosis (Prima ry Dx); Nail dystrophy; Pain in toes of both feet Start: 04-06-2023 End: 04-15-2023 ambulatory ISABELLE BARRIOS [facility] Start: 03-18-2023 End: 03-18-2023 ambulatory KAMILLA AICHHOLZ Not Available Start: 01-19-2023 End: 01-20-2023 ambulatory Rose Pace Facility:[facility] Start: 01-19-2023 End: 01-19-2023 Patient encounter procedure Rose Pace [facility] Start: 12-28-2022 End: 12-29-2022 ambulatory Anand LOPEZ Facility:[facility] Start: 12-28-2022 End: 12-28-2022 Patient encounter procedure Anand LOPEZ [facility] Start: 09-30-2022 End: 09-30-2022 ambulatory Imad Asaad Facility:[facility] Start: 09-30-2022 End: 09-30-2022 Admission to same day surgery center [facility] Work Phone: Start: 09-30-2022 End: 09-30-2022 ambulatory NON STAFF [facility] Work Phone: Start: 08-31-2022 End: 08-31-2022 ambulatory Imad Asaad Facility:[facility] Start: 08-31-2022 End: 08-31-2022 ambulatory NON STAFF [facility] Work Phone: Start: 08-31-2022 End: 08-31-2022 Patient encounter procedure [facility] [place] Work Phone: Start: 08-13-2022 End: 08-14-2022 ambulatory NON STAFF [facility] Work Phone: Start: 08-13-2022 End: 08-13-2022 Departed Referred [facility] [place] Work Phone: Start: 08-11-2022 End: 08-15-2022 Pre-admission assessment Rose Pace [facility] Start: 08-10-2022 Encounter for preprocedural laboratory examination DR ANAND LOPEZ . The [facility] Start: 08-07-2022 End: 08-08-[address] ANAND LOPEZ . Facility:[facility] Start: 08-07-2022 End: 08-08-2022 Encounter for preprocedural laboratory examination DR ANAND LOPEZ . Facility:[facility] Start: 07-29-2022 End: 07-30-[address] ANAND LOPEZ . Facility:[facility] Start: 07-27-2022 End: 07-27-2022 ambulatory Rose Pace Facility:[facility] Start: 07-27-2022 End: 07-27-2022 ambulatory NON STAFF [facility] Work Phone: Start: 07-27-2022 End: 07-27-2022 Patient encounter procedure [facility] [place] Work Phone: Start: 07-08-2022 End: 07-09-2022 ambulatory ENGINEERING ASSOCIATE KAMILLA AICMeghanaRADHAZ Facility:[facility] Start: 07-05-2022 Encounter for preprocedural cardiovascular examination DR ANAND LOPEZ . The [facility] Start: 07-05-2022 Encounter for preprocedural laboratory examination DR ANAND LOPEZ . The [facility] Start: 07-02-2022 End: 07-03-[address] ANAND LOPEZ . Facility:[facility] Start: 06-29-2022 End: 06-30-[address] ANAND LOPEZ . Facility:[facility] Start: 06-29-2022 End: 06-30-2022 Encounter for preprocedural cardiovascular examination DR ANAND LOPEZ . Facility:[facility] Start: 06-22-2022 End: 06-23-2022 ambulatory Anand LOPEZ Facility:[facility] Start: 06-20-2022 End: 06-21-[address] ANAND LOPEZ . Facility:[facility] Start: 06-19-2022 ambulatory Anand LOPEZ Facility :[facility] Start: 06-16-2022 End: 06-17-2022 ambulatory ENGINEERING ASSOCIATE KAMILLA BETHANYMeghanaRADHAZ Facility:[facility] Start: 06-03-2022 End: 06-04-2022 ambulatory ENGINEERING ASSOCIATE KAMILLA AICHHOLZ Facility:[facility] Start: 05-23-2022 End: 05-24-2022 ambulatory ENGINEERING ASSOCIATE KAMILLA AICHHOLZ Facility:[facility] Start: 12-22-2021 End: 12-22-2021 ambulatory SHAIKH Meghana NEWTON Facility:[facility] Start: 08-15-2021 End: 08-15-2021 Admission to same day surgery center DO Luis M Juarez Work Phone: [facility] Start: 08-13-2021 End: 08-13-2021 Patient encounter procedure DO Luis M Juarez Work Phone: [facility] Procedures Date Procedure Procedure Detail Performing [...] 08-16-2031 Screening for malignant neoplasm of colon [facility] Start: 06-17-2023 Screening for malignant neoplasm of breast Mammogram [facility] Start: 05-17-2023 End: 05-17-2023 Patient encounter procedure 05/17/2023 7:00 PM EST Office Visit [facility] [address] [place] [phone] Kamilla Patton NP [address] [place] [phone] [facility] Start: 04-29-2023 End: 04-29-2023 Patient encounter procedure 04/29/2023 6:00 PM EST Office Visit [facility] [address] [place] [phone] Kamilla Patton, [employer] [address] [place] [phone] [facility] Start: 01-01-2023 Screening for malignant neoplasm of cervix Pap Smear [facility] Start: 09-30-2022 [facility] Start: 07-27-2022 MR Unspecified body region [facility] Start: 07-27-2022 MRI of head MR head/brain wo/w con [facility] Start: 2001 Screening for malignant neoplasm of cervix HPV/Cotest [facility] Start: 1971 Screening for malignant neoplasm of colon [facility] Bilirubin measurement [facility] Body weight [facility] Calcium carbonate/To mirna in [facility] Calcium hydrogen shruti sphate dihydrate/Total in [facility] Calcium oxalate monohydrate/Total in [facility] Calcium phosphate level [facility] Calculus analysis wi th calculus photography [Interpretation] in [facility] Calculus analysis, qualitative [facility] Calculus analysis, quantitative [facility] Calculus analysis, quantitative, infrared spectroscopy [facility] Cellular material [Mass/mass] of Stone by Estimated [facility] Cholesterol [Mass/vo lume] in Serum or Plasma [facility] Cystine measurement [facility] Determination of annie culus chemical composition [facility] Evaluation procedure [facility] Hydroxyapatite [Ener gy Difference] in 24 hour Urine [facility] Laboratory data interpretation [facility] Newberyite/Total in Stone Fi relands [facility] Patient Education Esophagitis Hi atal Hernia (DC) Stomach polyps [facility] Work Phone: Specimen source subj ect [Type] [facility] Triamterene measurement [facility] Triple phosphate/Tot al in [facility] Immunizations Immunization Date Immunization Notes Care Provider Fa cility 12-27-2022 influenza virus vaccine, unspecified formulation Zonia Pak DPM Work Phone: [facility] 10-09-2021 SARS-CoV-2 mRNA (yllstkegkax-eguj-jgpx ose) vaccine Rose Windnagel [facility] 02-13-2021 COVID-19 mRNA, Comirnaty (Pfizer) DO Luis M [employer] Work Phone: [facility] 05-08-2020 COVID-19 mRNA, Comirnaty (Pfizer) DO Luis M [employer] Work Phone: [facility] Comment on above: Result Comment: 2022: TPV40 04-06-2020 SARS-CoV-2 (COVID-19 ) mRNA BNT-162b2 vax Rose Windnagel [facility] Comment on above: Result Comment: 2022: TPV40 04-02-2020 COVID-19 mRNA, Comirnaty (Pfizer) DO Luis M [employer] Work Phone: [facility] Comment on above: Result Comment: 2022: TPV40 07-17-2009 tetanus toxoid, reduced diphtheria toxoid, and acellular pertussis vaccine, adsorbed Rose Windnagel [facility] Payers Date Payer Category Payer Self-pay [id number] 2020 Unknown [id number] 1971 Unknown [id number] 2.16.84 0.1.589110.3.579.2.593 1971 Unknown [id number] 2.16.84 0.1.238408.3.579.2.593 1971 Unknown [id number] 2.16.84 0.1.650875.3.579.2.593 1971 Unknown [id number] 2.16.84 0.1.650542.3.579.2.593 1971 Unknown [id number] 2.16.84 0.1.496405.3.579.2.593 1971 Unknown [id number] 2.16.84 0.1.557597.3.579.2.593 1971 Unknown [id number] 2.16.84 0.1.081801.3.579.2.593 1971 Unknown [id number] 2.16.84 0.1.709622.3.579.2.593 1971 Unknown [id number] 2.16.84 0.1.362254.3.579.2.593 1971 Unknown [id number] 2.16.84 0.1.454098.3.579.2.593 1971 Unknown [id number] 2.16.84 0.1.858779.3.579.2.593 1971 Unknown [id number] 2.16.8 40.1.494376.3.579.2.727 1971 Unknown [id number] 2.16.8 40.1.000844.3.579.2.727 1971 Unknown [id number] 2.16.8 40.1.061404.3.579.2.727 1971 Unknown [id number] 2.16.8 40.1.318573.3.579.2.727 1971 Unknown [id number] 2.16.8 40.1.014316.3.579.2.727 1971 Unknown [id number] 2.16.8 40.1.265587.3.579.2.727 1971 Unknown [id number] 2.16.8 40.1.542131.3.579.2.1286 1971 Unknown [id number] 2.16.84 0.1.089628.3.579.2.1259 1971 Unknown [id number] 2.16.84 0.1.581705.3.579.2.1259 1971 Unknown [id number] 2.16.840 .1.309682.3.579.2.1259 1971 Unknown [id number] 2.16. 840.1.051802.3.579.2.196 1971 Unknown [id number] 2.16. 840.1.077682.3.579.2.196 1959 Unknown [id number] Unknown [id number] 2.16.8 40.1.378010.3.579.2.531 Unknown [id number] 2.16.8 40.1.382037.3.579.2.531 Unknown [id number] 2.16.8 40.1.287421.3.579.2.531 Unknown [id number] 2.16.8 40.1.958891.3.579.2.531 Social History Date Type Detail [facility] Work Phone: Start: 1970 Sex Assigned At Female [facility] Start: 06-22-2022 End: 04-20-2023 Tobacco smoking status Never smoked tobacco (finding) [facility] Tobacco smoking status Never [facility] Start: 03-17-2023 End: 04-20-2023 Sex Assigned At Female [facility] Start: 04-20-2023 Tobacco use and exposure Smokeless [...] 12-28-2022 Functional Status N/A [facility] Clinical Notes 08-15-2021 to 04-20-2023 Zonia [...] 2010 OVARY SURGERY 1991 Ovarian Resection - [place] Family History Family History Problem Relation Name [...] Zonia Pak DPM documented in this encounter [facility] 12-28-2022 Hospital Discharge instructions Patient Education 12/28/2022 [...] include: ?8 oz (237 mL) of milk, xlmannw-vkwpthzglreq-rwoyh milk, and calcium-fortifiedfruit juice. Calcium-fortified means that [...] ?Spinach (cooked), rhubarb, beets, sweet potatoes, and Nepalese chard. ?Peanuts. ?Potato chips, indian fries, and baked potatoes with skin on. ?Nuts and nut products. ?Chocolate. If you regularly take a diuretic medicine, make sure to eat at least 1 or 2 servings of fruits or vegetables that are high in potassium each day. These include: ?Avocado. ?Banana. ?Coamo, prune, carrot, or tomato juice. ?Baked potato. [...] magnesium, fish oil, or vitamin B6. Take yuxq-wne-bzoobkg and prescription medicines only as told by [...] Casseroles. Pizza. Lasagna. Frozen meals. Potato chips. [place] Citizen fries. The items listed above may not [...] provider. Document Revised: 11/10/2021 Document Reviewed: 11/10/2021 [employer] Patient Education 2022 Picturae. Follow Up Care 07/07/2022 08:32:51 With:PATI DOHERTY, Anand Fonseca, URL Address: [facility] [address], [place] [address]- When:Within 1 Year(s) Comments:w/KUB [facility] 09-30-2022 Procedure note [facility] 06-22-2022 Note Chief Complaint Referral *Kidney Stone [...] When Contact Information PATI DOHERTY, Anand Fonseca, [facility] [address], [place] [address]- Additional Instructions: schedule L ESWL Patient Education [...] Once a day (at bedtime) multivitamin, Daily [place]-3 oral capsule Pantoprazole [address] Tab traZODONE 50 mg Tab Viactiv Soft Calcium Chews Vitamin C, Daily Allergies penicillin (Unknown) Social History Tobacco Never (less than 10 (more content not included)... [facility] Comment on above: Result Comment: Elec tronically Signed By: Anand LOPEZ MD\.br\Date and Time Signed: 06/22/22 14:41 EDT\.br\Electronically Co-Signed By: Caroline Morales\.br\Date and Time Co-Signed: 06/22/22 14:38 EDT 08-15-2021 History and physi annie note Note Date/Time August 15, 2021 8:18a m [facility] [address] [place] [address] Gastroenterology H&P Signed Patient: Cinthia Badillo MR#: [id number] : 1970 Acct:[id number] Age/Sex: 51 / F Adm Date: 2 Loc: Room: Type: [facility] Attending Dr: Luis M Juarez DO [...] Luis M Juarez Jr, DO> 08/15/21 0825 [facility] Work Phone: 1(979) 571-395806-03-2022 [facility] Future Appointments Appointment Date:12/28/2022 02:45:00 PM Scheduled Provider:Anand LOPEZ MD Location:[facility] Future App[facility]ments Appointment Date:01/07/2024 08:00:00 AM Scheduled Provider:Anand LOPEZ MD Location:[facility] Appointment Type:URO Office Visit [facility] evaluation note* Diagnosis Onset Date Resolution Status GERD (gastroesophageal reflux disease) acute Screening for colorectal cancer acute [facility] Work Phone: Evaluation noteNo assessment information available [facility] Work Phone: evaluation note* Diagnosis Onychomycosis- Primary Dermatophytosis of nail Nail dystrophy Other specified disease of nail Pain in toes of both feet documented [facility] encounter [facility] Diagnosis Gastroesophageal reflux disease without esophagitis Esophageal reflux documented in this encounter [facility] Author Juani Blackwell [facility] September 30, 2022 8:25am Note Date/Time September 30, 2022 8:25 am [facility] [address] [place] [address] Gastroenterology H&P Signed Patient: Cinthia Badillo MR#: [id number] : 1970 Acct:[id number] Age/Sex: 52 / F Adm Date: 3 Loc: Room: Type: [facility] Attending Dr: Juani Blackwell MD Copies to: MD Kamilla hCin NP-C~ Date of Service: 09/30/2022 HISTORY & [...] <Electronically signed by Juani Blackwell MD> 09/30/22824 [facility] Work Phone: Hospital course Narrative No data available for this section [facility] Discharge instructions No data available for this section [facility] Discharge instructions Additional Instructions DISCHARGE INSTRUCTIONS [...] problems. -Follow up with PCP. -Office number [phone]. [facility] Work Phone: Progress note No data available for this section [facility] Chief Complaint and Reason for Visit Chief [...] Active Kamilla Patton Primary Care Provider Active [employer] Relationship Specialty Start Date End Date Nishant Aguilar MD [address] [place] [phone] PCP - General Family Medicine 03/10/23 Kamilla Patton NP [address] [place] [phone] Nurse Practitioner Family Medicine 03/10/23 [employer] Relationship Specialty Start Date End Date Nishant Aguilar MD [address] [place] [phone] PCP - General Family Medicine 03/10/23 Kamilla Patton NP [address] [place] [phone] Nurse Practitioner Family Medicine 03/10/23 Goals [...] and content) DATE CREATED AUTHOR 08/24/2022 [facility] DATE CREATED AUTHOR AUTHOR'S ORGANIZ ATION 10/02/2022 [facility] DATE CREATED AUTHOR AUTHOR'S ORGANIZ ATION 02/15/2023 [facility] DATE CREATED AUTHOR AUTHOR'S ORGANIZ ATION 04/18/2023 [facility] DATE CREATED AUTHOR AUTHOR'S ORGANIZ ATION 05/18/2023 [facility] DATE CREATED AUTHOR AUTHOR'S ORGANIZ ATION 06/05/2023 [facility] Reason for Visit (unrecogniz ed section [...] BE BASED ON THE PRIMARY CLINICAL RECORDS. [facility] [employer], [facility]. provides no warranty or guarantee of the accuracy or completeness of information in this document.
== END 2023-06-30 13:00 | disposition home or self-care (01) ==
LOC: ER 22:09 → MS 06-30 12:21
PROVIDERS: Emergency Medicine; Physician Assistant; Registered Nurse; Admitting Provider Nurse Practitioner; Emergency Provider Internal Medicine; PCP Nurse Practitioner; Visit Provider Nurse Practitioner
DX: R07.9 Chest pain, unspecified (principal); Z82.49 Family history of ischemic heart disease and other diseases of the circulatory system; N28.9 Disorder of kidney and ureter, unspecified; I10 Essential (primary) hypertension; Z90.49 Acquired absence of other specified parts of digestive tract; K21.00 Gastro-esophageal reflux disease with esophagitis, without bleeding; Z90.710 Acquired absence of both cervix and uterus; Z83.3 Family history of diabetes mellitus; Z83.6 Family history of other diseases of the respiratory system; Z80.9 Family history of malignant neoplasm, unspecified; G50.0 Trigeminal neuralgia
CPT/HCPCS: 36415; 71045; 71275; 80048; 80053; 80061; 80076; 82150; 83036; 83605; 83690; 83880; 84443; 84484; 85025; 85027; 85610; 93005; 93306; 99285; G0378; Q9967

== ENCOUNTER 2023-07-07 07:19 | Outpatient (OUT) | payer BC, SELFPAY ==
--- OUTSIDE RECORDS SUMMARY | 2023-07-07 07:22 | XMS_ITS | CCD ---
Author Organization [facility] Care Team Providers Care Stamping Operator Name Role Phone Larry DO Luis M Montano Attending Provider NON STAFF Primary Care Provider Unavaildina e NON STAFF Primary Care Provider Unavaildina e TISHA Pace- Rose Attending Provider MD Anand Lopez Attending Provider AICHHOLZ, KAMILLA J Primary Care Physician [phone] PATI ., DR MICHEL Attending Unavailable LOPEZ ., DR MICHEL Consulting Unavailable AICHHOLZ, CONTINUOUS MINING MACHINE OPERATOR KAMILLA Primary Care Unavailable LOPEZ ., DR MICHEL Admitting Unavailable GALVEZ, IZZY Consulting Unavailable LOPEZ ., DR MICHEL Consulting Unavailable AICHHOLZ, CONTINUOUS MINING MACHINE OPERATOR KAMILLA Primary Care Unavailable LOPEZ ., DR MICHEL Admitting Unavailable LOPEZ ., DR MICHEL Attending Unavailable ZIEBER, DR JERICA Fonseca Consulting Unavailable VICTORINO, KYLE Consulting Unavailable MARY ANN II, GEOVANNI Consulting Unavailable LOPEZ ., DR MICHEL Attending Unavailable AICHHOLZ, CONTINUOUS MINING MACHINE OPERATOR KAMILLA Primary Care Unavailable LOPEZ ., DR MICHEL Admitting Unavailable AICHHOLZ, CONTINUOUS MINING MACHINE OPERATOR KAMILLA Admitting Unavailable AICHHOLZ, CONTINUOUS MINING MACHINE OPERATOR KAMILLA Attending Unavailable AICHHOLZ, CONTINUOUS MINING MACHINE OPERATOR KAMILLA Consulting Unavailable AICHHOLZ, CONTINUOUS MINING MACHINE OPERATOR KAMILLA Primary Care Unavailable ZIEBER, DR JERICA Fonseca Consulting Unavailable AICHHOLZ, CONTINUOUS MINING MACHINE OPERATOR KAMILLA Admitting Unavailable AICHHOLZ, CONTINUOUS MINING MACHINE OPERATOR KAMILLA Attending Unavailable AICHHOLZ, CONTINUOUS MINING MACHINE OPERATOR KAMILLA Consulting Unavailable AICHHOLZ, CONTINUOUS MINING MACHINE OPERATOR KAMILLA Primary Care Unavailable FAWWAD, STEELE H Admitting Unavailable FAWWAD, STEELE H Attending Unavailable FAWWAD, STEELE H Consulting Unavailable AICHHOLZ, CONTINUOUS MINING MACHINE OPERATOR KAMILLA Primary Care Unavailable LOPEZ ., DR MICHEL Attending Unavailable LOPEZ ., DR MICHEL Consulting Unavailable AICHHOLZ, CONTINUOUS MINING MACHINE OPERATOR KAMILLA Primary Care Unavailable LOPEZ ., DR MICHEL Admitting Unavailable ZIEBER, DR JERICA Fonseca Consulting Unavailable AICHHOLZ, CONTINUOUS MINING MACHINE OPERATOR KAMILLA Primary Care Unavailable AICHHOLZ, CONTINUOUS MINING MACHINE OPERATOR KAMILLA Admitting Unavailable AICHHOLZ, CONTINUOUS MINING MACHINE OPERATOR KAMILLA Attending Unavailable AICHHOLZ, CONTINUOUS MINING MACHINE OPERATOR KAMILLA Consulting Unavailable LOPEZ ., DR MICHEL Admitting Unavailable LOPEZ ., DR MICHEL Consulting Unavailable AICHHOLZ, CONTINUOUS MINING MACHINE OPERATOR KAMILLA Primary Care Unavailable LOPEZ ., DR MICHEL Attending Unavailable WEST, DR LUIS M Bustos Consulting Unavailable AICHHOLZ, CONTINUOUS MINING MACHINE OPERATOR KAMILLA Primary Care Unavailable WEST, DR LUIS M Bustos Consulting Unavailable AICHHOLZ, CONTINUOUS MINING MACHINE OPERATOR KAMILLA Admitting Unavailable AICHHOLZ, CONTINUOUS MINING MACHINE OPERATOR KAMILLA Attending Unavailable AICHHOLZ, CONTINUOUS MINING MACHINE OPERATOR KAMILLA Consulting Unavailable LOPEZ ., DR MICHEL Consulting Unavailable AICHHOLZ, CONTINUOUS MINING MACHINE OPERATOR KAMILLA Primary Care Unavailable LOPEZ ., DR [...] Unavailable Aichholz, Kamilla J Primary Care Provider [phone] Anand LOPEZ Attending Unavailable Anand LOPEZ Attending Unavailable Anand LOPEZ Attending Unavailable Windnagel, Rose Admitting Unavailable Windnagel, Rose Attending Unavailable Windnagel, Rose Referring Unavailable LOPEZAnand R Attending Unavailable LOPEZAnand R Attending Unavailable ISABELLE BARRIOS Referring Unavailable SOPHIEISABELLE Primary Care Unavailable Aichholz BEEHIVE KILN CHARCOAL BURNER, Kamilla Unavailable Nishant Aguilar MD Primary Care Provider [phone] James FU, Kristine Patten Attending Phyllis vailable James FU, Kristine Patten Attending Phyllis vailable AICHHOLZ, KAMILLA Attending Unavailable ZONIA PAK Attending Unavailable KAMILLA PATTON Attending Unavailable KAMILLA PATTON Attending Unavailable Allergies Allergy Classification Reported Allergen(s) Allergy Type Date of Onset Reaction(s) Facility (11 sources) Penicillins; Translations: [Penicillins] Allergy to substance 07-14-[address] [facility] (5 sources) Penicillin; Translations: [penicillin] Drug Allergy Unknown [facility] Medications Current Medications Medication Drug Class(es) [...] Refill(s) 0 Start Date: 06/22/22 Status: Ordered Shelby-3 oral capsule (3 sources) Start: 06-22-2022 Shelby-3 oral capsule Refill(s) 0 Start Date: 06/22/22 [...] Active Start: 11-23-2022 take 1 capsule by [facility] twice daily zonisamide (Zonegran) 25 MG capsule [...] Forms- Texton 12-0 Neurology Forms- Text [id number]#1.00TIFF [facility] Consent for Treatmenton 11-0 Consent for Treatment [id number]#1.00TIFF [facility] Ambulatory Visit Summaryon 1 Ambulatory Visit Summary CINTHIA BADILLO :1970 Visit Date:12/28/2022 Ambulatory Visit Instructions Your Diagnosis Kidney stone Tests Performed Urnls Dip Stick Auto w/o Microscopy POC 17772 XR Abdomen 1 View -- Results Pending [...] Soft Calcium Chews) omega-3 polyunsaturated fatty acids (Shelby-3 oral capsule) pantoprazole (Pantoprazole [address] [...] the Following Appointments Follow Up with PATI DOEHRTY, NICHELLE Sanabria When: In 1 year Comments: w/KUB Where: [facility] [address], [place] [address]- Medications What How Much When Instructions Unchanged [...] or concerns Unchanged omega-3 polyunsaturated fatty acids (Shelby-3 oral capsule) Contact prescribing physician if questions or concerns Unchanged pantoprazole (Pantoprazole [address] Tab) Contact prescribing physician if questions or concerns Unchanged terbinafine (terbinafine 250 mg Tab) Contact prescribing physician if questions or concerns Unchanged zonisamide (zonisamide 25 mg Cap) Contact prescribing physician if questions or concerns Test Results Urnls Dip Stick Auto w/o Microscopy POC 56139 (12/28/2022) Bilirubin Urine Dipstick - Negative Blood Urine Dipstick - Trace-intact Glucose Urine Dipstick - Negative Ketones Urine Dipstick - Negative Leukocytes Urine Dipstick - Negative Nitrite Urine Dipstick - Negative Protein Urine Dipstick - Negative Specific Sycamore Urine Dipstick - 1.020 Urine Appearance Urine [...] ? 8 oz (237 mL) of milk, ffxppxw-qylehzfpdalz-xrrpf milk, and calcium-fortifiedfruit juice. Calcium-fortified means that [...] need 1, (more content not included)... Normal [facility] Patient Educationon 12-28- Patient Education Nephrology Dietary Guidelines to Help [...] ? 8 oz (237 mL) of milk, qvowgsb-yfurnhrmvfoc-pozta milk, and calcium-fortifiedfruit juice. Calcium-fortified means that [...] Spinach (cooked), rhubarb, beets, sweet potatoes, and Indian chard. ? Peanuts. ? Potato chips, north korean fries, and baked potatoes with skin on. ? Nuts and nut products. ? Chocolate. ? If you regularly take a diuretic medicine, make sure to eat at least 1 or 2 servings of fruits or vegetables that are high in potassium each day. These include: ? Avocado. ? Banana. ? Stanton, prune, carrot, or tomato juice. ? Baked [...] fish oil, or vitamin B6. ? Take tuby-jhw-zajgdjg and prescription medicines only as told by your health care provider. These include supplements. What foods should I limit? Limit your in (more content not included)... Normal [facility] RAD [facility]2022 [facility] - MIS [id number]#1.00TIFF Normal [facility] Urology Office/Clinic Noteon 12-28-2022 Urology Office/Clinic Note Chief Complaint kidney stone HPI Staff 52 yo female here for 6 month f/u with KUB. Previous Dx: kidney stone, L flank pain. S/p L ESWL 07/02/22 and Cysto/L URS/L stone basket extraction 08/13/22. KUB done 07/29/22 at [facility]. Stone analysis done 07/06/22 and 08/14/22. Dysuria: [...] 07/02/22 Stone analysis done 07/06/22 - CaOx Cherry 80% & CaOx Dihy 20% KUB 07/29/22 - grossly stable Lt Nephrolithiasis S/p Cysto/L URS/L stone basket extraction 08/13/22 Stone Analysis 08/14/22 - CaOx Cherry 90% & CaOx Dihy 10% KUB 12/26/22 [...] In 1 year [facility] [address], [place] [address]- Additional Instructions: w/KUB Patient Education Dietary Guidelines to Help Prevent Kidney Stones I, Jaylene Baires , personally scribed for Dr. Lopez on 12/28/2022 16:05:22. . Documentation recorded by the scribe, Jaylene Baires, accurately reflects the services(s) I performed and [...] Once a day (at bedtime) multivitamin, Daily Shelby-3 oral capsule Pantoprazole [address] Tab terbinafine 250 mg Tab Viactiv Soft Calcium Chews Vitamin C, Daily zonisamide 25 mg Cap Allergies penicillin (Unknown) Social History Tobacco Never (less than 100 in lifetime) Tobacco Use:. Never Smokeless Tobacco Use:., 06/22/2022 Family History Family history is negative Immunizations Vaccine Date Status Comments SARSCoV2 mRNA(lnzhqifsr-oqag-chisxv) vac 10/09/2021 Boby (more content not included)... Normal [facility] Comment on above: Result Comment: Elec tronically Signed By: Anand LOPEZ MD\.br\Date and Time Signed: 12/28/22 16:09 EDT\.br\Electronically Co-Signed By: Jaylene Baires\.br\Date and Time Co-Signed: 12/28/22 16:05 EDT Physician Orderon 12-25-2022 Physician Order [id number]#1.00TIFF Sheryl Garcia [facility] Blu 09-30-2022 L ------- Specimen: [id number] Received: 09/30/22 Status: RAYMUNDO Stock Num: [id number] Spec Type: Surgical Subm Dr: Juani Blackwell MD Tissues: A Duodenum - Biopsy (DUODENUM BX) B GASTRIC FOR HP (GASTRIC) C Gastric Biopsy (GASTRIC POLYP) Procedures: HE/6, Gross/Micro L4/3, H PYLORI Age/ Patient Sex Location Account Attending Physician Cinthia Badillo 52/Royal [id number] Juani Blackwell MD SPEC NUM: [id number] RECD: 09/30/22 STATUS: RAYMUNDO CANOJudy NUM: [id number] TETE: 09/30/22- [facility] DR: Juani Blackwell MD ENTERED: 09/30/[address] [facility] DR: SPEC TYPE: Surgical DEPT: S ORDERED: [...] out celiac, rule out H. pylori Specimen: [id number] Received: 09/30/22 Status: RAYMUNDO Canojudy Num: [id number] Spec Type: Surgical Subm Dr: Juani Blackwell MD Tissues: A Duodenum - Biopsy (DUODENUM BX) B GASTRIC FOR HP (GASTRIC) C Gastric Biopsy (GASTRIC POLYP) Procedures: HE/6, Gross/Micro L4/3, H PYLORI Patient: Cinthia Badillo Charmaine [id number] (Continued) Specimen: [id number] Received: 09/30/22 (Continued) Signed (signature on file) Justo Sher MD 10/01/22 1050 Specimen: [id number] Received: 09/30/22 Status: RAYMUNDO Montrell Num: [id number] Spec Type: Surgical Subm Dr: Juani Blackwell MD Tissues: A Duodenum - Biopsy (DUODENUM BX) B GASTRIC FOR HP (GASTRIC) C Gastric Biopsy (GASTRIC POLYP) Procedures: HE/6, Gross/Micro L4/3, H PYLORI Patient: ChristianaCinthia [id number] (Continued) Specimen: [id number] Received: 09/30/22 (Continued) Gross Description A. Received [...] microscopic examination confirms the diagnosis. CPT Codes 17588 x 3 Specimen: [id number] Received: 09/30/22 Status: RAYMUNDO Montrell Num: [id number] Spec Type: Surgical Subm Dr: Juani Blackwell MD Tissues: A Duodenum - Biopsy (DUODENUM BX) B GASTRIC FOR HP (GASTRIC) C Gastric Biopsy (GASTRIC POLYP) Procedures: HE/6, Gross/Micro L4/3, H PYLORI Patient: Cinthia Badillo [id number] (Continued) Signed (signature on file) Justo Sher MD 10/01/22 1050 Normal [facility] Pathology Noteon 09-08-2022 Pathology Note [id number]#1.00CD:127 Normal [facility] NM gastric emptying studyon 08-31-2022 [place] [address] Nuclear Medicine Report Signed Patient: Cinthia Badillo MR#: [id number] : 1970 Acct:[id number] Age/Sex: 52 / F ADM Date: 08/31/22 Loc: [place] Room: Type: [facility] Attending Dr: Juani Blackwell MD Copies to: MD Anabela Chin MD Ordering Provider: Juani Blackwell MD Date of Service: 08/31/22 NM/NM gastric emptying study: K21.9, R11.10 GASTRIC EMPTYING [...] Anabela Greer M.D.08/31/2022 9:37 AM Dictation Location: [place] [address] Transcribed By: [facility] 08/31/22936 Dictated By: Anabela Greer MD 08/31/2236 Signed By: 08/31/22936 [facility] Lab Reportson 08-28-2022 Lab Reports [id number]#1.00CD:127 Normal [facility] Provider Letteron 08-17-2022 Provider Letter (Inserted Image. Phyllis ble to display) August 17, 2022 CINTHIA BADILLO [address] [place] [address] : 1970 To Whom It May Concern, Cinthia Badillo 1970 Please excuse above patient from work. Date of Illness: From: 08/13/2022 To: 08/17/2022 May Return to Work On: 08/18/2022 Restrictions: No Restrictions Comments: _ Sincerely, Anand Lopez MD [facility] [address] [place] [address] [facility] Operative Reporton 3 Operative Report [id number]#1.00CD:[address] [facility] Ammonium urate crystals dete ction in stone by infrared spectroscopyOrdered By: Anand Lopez on 08-13-2022 Ammonium urate crystals Infrared spectroscopy Ql (Stone) N/A [facility] Calcium bilirubinate measure mentOrdered By: Anand Lopez on 08-13-2022 Calcium bilirubinate (Stone) [Mass fraction] N/A [facility] Calcium carbonate measuremen tOrdered By: Anand Lopez on 08-13-2022 Calcium carbonate (Stone) [Mass fraction] N/A [facility] Calcium hydrogen phosphate d ihydrate/Total in StoneOrdered By: Anand Lopez on 08-13-2022 Calcium hydrogen phosphate dihydrate (Stone) [Mass fraction] N/A [facility] Calcium oxalate dihydrate cr ystals detection in stone by infrared spectroscopyOrdered By: Anand Lopez on 08-13-2022 Calcium oxalate dihydrate crystals Infrared spectroscopy Ql (Stone) 10 % . [facility] Calcium oxalate monohydrate/ Total in StoneOrdered By: Anand Lopez on 08-13-2022 Calcium oxalate monohydrate (Stone) [Mass fraction] 90 % . [facility] Calcium phosphate measuremen tOrdered By: Anand Lopez on 08-13-2022 Calcium phosphate (Stone) [Mass fraction] N/A [facility] Calculi, Urinaryon Ca Oxalate Dihydrate 10 % Normal . [facility] Comment on above: Performed By: #### C ALCULI #### [facility] , Ca Oxalate Monohydrate 90 % Normal . [facility] Comment on above: Performed By: #### C ALCULI #### [facility] , Color (U) Brown Normal . [facility] Comment on above: Performed By: #### C ALCULI #### [facility] , Comment2 Normal . [facility] Comment on above: Result Comment: Calc ulus received wet. Wet calculi must be dried before analysis, which delays reporting of results. Leaving calculi wet (such as water, saline, blood, urine) may lead to changes in composition. Performed By: #### C ALCULI #### [facility] , Comment: Normal . [facility] Comment on above: Result Comment: Bhavana power questions regarding Calculi Analysis contact [facility] at: [phone]. Performed By: #### C ALCULI #### [facility] , Composition Normal . [facility] Comment on above: Result Comment: Perc entage (Represents the % composition) Performed By: #### C ALCULI #### [facility] , Disclaimer: Normal . [facility] Comment on above: Result Comment: This test was developed and its performance characteristics determined by [facility]. It has not been cleared or approved by the Food and Drug Administration. Performed at: [facility] - [address] [id number] Research And Development Researcher: Mike Valladares PhD, Phone: [phone] Performed By: #### C ALCULI #### [facility] , Note Normal . [facility] Comment on above: Result Comment: Calc hannah report will follow via computer, mail or filter tank tender helper head delivery. PERFORMED BY: [facility] [address] [place] [address] PATHOLOGIST CREDIT REPORTER [place]TER M.D. Performed By: #### C ALCULI #### [facility] , Photo Normal . [facility] Comment on above: Result Comment: Phot ograph will follow under a separate cover Performed By: #### C ALCULI #### [facility] , Size 4x4 Normal . [facility] Comment on above: Result Comment: Mult iple pieces received. Dimensions of the largest piece reported. Performed By: #### C ALCULI #### [facility] , Source Normal . [facility] Comment on above: Result Comment: Left Kidney Performed By: #### C ALCULI #### [facility] , Weight 107 Normal . [facility] Comment on above: Performed By: #### C ALCULI #### [facility] , Calculus analysis interpreta tion in stoneOrdered By: Anand Lopez on 08-13-2022 Calculus analysis [Interp] N/A [facility] Calculus analysis [Interp] See comment . [facility] Comment on above: Calculus received we t. Wet calculi must be dried beforeanalysis, which delays reporting of results. Leaving calculiwet (such as water, saline, blood, urine) may lead tochanges in composition. Physician questions regarding Calculi Analysis contactBob [facility] at: [phone]. Calculi report will follow via computer, mail or courierdelivery. Calculus analysis with calcu sabrina photography interpretation in stoneOrdered By: Anand Lopez on 08-13-2022 Calculus analysis with calculus photography [Interp] See comment . [facility] Comment on above: Photograph will foll ow under a separate cover Cellular material measuremen t in stone by estimated (mass/mass)Ordered By: Anand Lopez on 08-13-2022 Cellular material Est (Stone) [Mass/Mass] N/A [facility] Cholesterol/Total in StoneOr dered By: Anand Lopez on 08-13-2022 Cholesterol (Stone) [Mass fraction] N/A [facility] Composition of stoneOrdered By: Anand Lopez on 08-13-2022 Composition Nom (Stone) See comment . [facility] Comment on above: Percentage (Represen ts the % composition) Cystine measurementOrdered B y: Anand Lopez on 08-13-2022 Cystine (Unsp spec) [Moles/Vol] N/A [facility] Determination of color of ca lculusOrdered By: Anand Lopez on 08-13-2022 Color (Stone) Brown . [facility] Hydroxyapatite [Energy Diffe rence] in 24 hour UrineOrdered By: Anand Lopez on 08-13-2022 Hydroxyapatite (24H U) [Energy diff] N/A [facility] Blu 08-13-2022 L ------- Specimen: [id number] Received: 08/14/22 Status: RAYMUNDO Stock Num: [id number] Spec Type: Surgical Subm Dr: Anand Lopez MD Tissues: A Urinary Calculus (LT RENAL CALCULI) Procedures: Level 1 Gross Age/ Patient Sex Location Account Attending Physician Cinthia Badillo 52/F ID [id number] Anand Lopez MD SPEC NUM: [id number] RECD: 08/14/22 STATUS: RAYMUNDO STOKC NUM: [id number] TETE: 08/13/22- [facility] DR: Anand Lopez MD ENTERED: 08/14/22 [facility] [address]: Kishor [facility] SPEC TYPE: Surgical DEPT: S ORDERED: Level [...] chemical analysis. Gross examination only. CPT Codes 73939 Specimen: [id number] Received: 08/14/22 Status: RAYMUNDO Canojudy Num: [id number] Spec Type: Surgical Subm Dr: Anand Lopez MD Tissues: A Urinary Calculus (LT RENAL CALCULI) Procedures: Level 1 Gross Patient: Cinthia Badillo [id number] (Continued) Signed (signature on file) Rory Connors MD 09/04/22 7999 [facility] Measurement of proportion of calculus composed of dried blood (mass/mass)Ordered By: Anand Lopez on 08-13-2022 Blood.dried (Stone) [Mass fraction] N/A [facility] Newberyite/Total in StoneOrd ered By: Anand Lopez on 08-13-2022 Newberyite (Stone) [Mass fraction] N/A [facility] No Panel InformationOrdered By: Anand Lopez on 08-13-2022 Stone 2,8 Dihydroxyadenine N/A [facility] Stone Analysis Disclaimer See comment . [facility] Comment on above: This test was develo ped and its performance characteristicsdetermined by [employer]. It has not been cleared or approvedby the Food and Drug Administration.Performed at: [address] [id number] Director: Mike Valladares PhD, Phone: [phone] Stone Bilirubinate N/A [facility] Stone Calcium Palmitate N/A [facility] Stone Calcium Stearate N/A [facility] Stone Carbonate Apatite N/A [facility] Stone Drug or Metabolite N/A [facility] Stone Other Constituent N/A [facility] Stone Xanthine N/A [facility] Size [Entitic volume] of Sto neOrdered By: Anand Lopez on 08-13-2022 Size (Stone) [Entitic vol] 4x4 mm . [facility] Comment on above: Multiple pieces rece ived. Dimensions of the largest piecereported. Sodium urate crystals detect ion in stone by infrared spectroscopyOrdered By: Anand Lopez on 08-13-2022 Sodium urate crystals Infrared spectroscopy Ql (Stone) N/A [facility] Specimen source subject [Typ e]Ordered By: Anand Lopez on 08-13-2022 Specimen source subject Nom See comment . [facility] Comment on above: Left Kidney Triamterene measurement in c alculusOrdered By: Anand Lopez on 08-13-2022 Triamterene (Stone) [Mass fraction] N/A [facility] Triple phosphate/Total in St oneOrdered By: Anand Lopez on 08-13-2022 Triple phosphate (Stone) [Mass fraction] N/A [facility] Uric acid dihydrate crystals detection in stone by infrared spectroscopyOrdered By: Anand Lopez on 08-13-2022 Urate dihydrate crystals Infrared spectroscopy Ql (Stone) N/A [facility] Consent for Procedure/Surger yon 08-12-2022 Consent for Procedure/Surgery [id number]#[id number]:127 Normal [facility] Lab Reportson 08-12-2022 Lab Reports [id number]#1.00CD:127 Normal [facility] Lab Reports [id number]#1.00CD:127 Normal [facility] Physician Orderon 08-11-2022 Physician Order [id number]#1.00CD:127 Normal [facility] CBC AUTO DIFFon 08-07-2022 BASO # 0.0 103/ul Normal 0.0-0.1 [facility] Comment on above: Performed By: #### P TT, PT #### [facility] [address] [place] [address] [address] Judy Ramirez Basophils/100 WBC (Bld) 0.5 % Normal 0.2-2.0 [facility] Comment on above: Performed By: #### P TT, PT #### [facility] [address] [place] [address] [address] Judy Ramirez EO # 0.1 103/ul Normal 0.0-0.7 [facility] Comment on above: Performed By: #### P TT, PT #### [facility] [address] [place] [address] [address] Judy Ramirez Eosinophils/100 WBC (Bld) 1.6 % Normal 0.9-7.0 [facility] Comment on above: Performed By: #### P TT, PT #### [facility] [address] [place] [address] [address] Judy Ramirez Erythrocyte distribution width (RBC) [Ratio] 12.8 % Normal 11.0-15.0 [facility] Comment on above: Performed By: #### P TT, PT #### [facility] [address] [place] [address] Dr. Judy Ramirez Hematocrit (Bld) [Volume fraction] 40.7 % Normal 36.0-48.0 [facility] Comment on above: Performed By: #### P TT, PT #### [facility] [address] [place] [address] Dr. Judy Ramirez Hemoglobin (Bld) [Mass/Vol] 13.5 g/dL Normal 12.0-16.0 [facility] Comment on above: Performed By: #### P TT, PT #### [facility] [address] [place] [address] Dr. Judy Ramirez IG # 0.02 10e3/ul Normal 0.00-0.03 [facility] Comment on above: Performed By: #### P TT, PT #### [facility] [address] [place] [address] Dr. Judy Ramirez IG % 0.3 % Normal 0.0-0.5 [facility] Comment on above: Performed By: #### P TT, PT #### [facility] [facility] [address] [place] [address] Dr. Judy Ramirez LYMPH # 2.6 103/ul Normal 1.2-3.8 [facility] Comment on above: Performed By: #### P TT, PT #### [facility] [address] [place] [address] Dr. Judy Ramirez Lymphocytes/100 WBC (Bld) 33.9 % Normal 20.5-60.0 [facility] Comment on above: Performed By: #### P TT, PT #### [facility] [address] [place] [address] Dr. Judy Ramirez MANUAL DIFF REQ NO Normal [facility] Comment on above: Performed By: #### P TT, PT #### [facility] [address] [place] [address] Dr. Judy Ramirez MCH (RBC) [Entitic mass] 28.5 pg Normal 26.7-34.0 [facility] Comment on above: Performed By: #### P TT, PT #### [facility] [address] [place] [address] Dr. Judy Ramirez MCHC (RBC) [Mass/Vol] 33.2 g/dL Normal 29.9-35.2 [facility] Comment on above: Performed By: #### P TT, PT #### [facility] [address] [place] [address] Dr. Judy Ramirez MCV (RBC) [Entitic vol] 86.0 fL Normal 81.0-99.0 [facility] Comment on above: Performed By: #### P TT, PT #### [facility] [address] [place] [address] Dr. Judy Ramirez MONO # 0.4 103/ul Normal 0.3-0.8 [facility] Comment on above: Performed By: #### P TT, PT #### [facility] [address] [place] [address] Dr. Judy Ramirez Monocytes/100 WBC (Bld) 5.6 % Normal 1.7-12.0 [facility] Comment on above: Performed By: #### P TT, PT #### [facility] [address] [place] [address] Dr. Judy Ramirez NEUT # 4.4 103/ul Normal 1.4-6.5 [facility] Comment on above: Performed By: #### P TT, PT #### [facility] [address] [place] [address] Dr. Judy Ramirez Neutrophils/100 WBC (Bld) 58.1 % Normal 43.0-75.0 [facility] Comment on above: Performed By: #### P TT, PT #### [facility] [address] [place] [address] Dr. Judy Ramirez Platelet mean volume (Bld) [Entitic vol] 9.4 fL Critically low 9.5-13.5 [facility] Comment on above: Performed By: #### P TT, PT #### [facility] [address] [place] [address] Dr. Judy Ramirez PLT 285 103/ul Normal 150-450 [facility] Comment on above: Performed By: #### P TT, PT #### [facility] [address] [place] [address] Dr. Judy Ramirez RBC 4.73 106/ul Normal 4.20-5.40 [facility] Comment on above: Performed By: #### P TT, PT #### [facility] [address] [address] [address] Judy Ramirez WBC 7.6 103/ul Normal 4.0-11.0 [facility] Comment on above: Performed By: #### P TT, PT #### [facility] [address] [place] [address] Dr. Judy Ramirez Lab Reportson 08-07-2022 Lab Reports [id number]#[id number]:127 Normal [facility] PROF CHEM 8 (BAS METB)on Anion gap [Moles/Vol] 9.8 mmol/L Normal [facility] Comment on above: Performed By: #### P TT, PT #### [facility] [address] [place] [address] Dr. Judy Ramirez Calcium [Mass/Vol] 9.3 mg/dL Normal 8.5-10.1 [facility] Comment on above: Performed By: #### P TT, PT #### [facility] [address] [place] [address] Dr. Judy Ramirez Chloride [Moles/Vol] 105 mmol/L Normal 98-107 [facility] Comment on above: Performed By: #### P TT, PT #### [facility] [address] [place] [address] Dr. Judy Ramirez CO2 [Moles/Vol] 30.4 mmol/L Normal 21.0-32.0 [facility] Comment on above: Performed By: #### P TT, PT #### [facility] [address] [place] [address] Dr. Judy Ramirez Creatinine [Mass/Vol] 1.15 mg/dL Critically high 0.55-1.02 [facility] Comment on above: Performed By: #### P TT, PT #### [facility] [address] [address] [address] Judy Ramirez EGFR-AF IRANIAN 60 mL/min/1.73m2 Normal >=60 [facility] Comment on above: Performed By: #### P TT, PT #### [facility] [address] [address] [address] Jduy Ramirez EGFR-NON AF IRANIAN 50 mL/min/1.73m2 Critically low >=60 [facility] Comment on above: Performed By: #### P TT, PT #### [facility] [address] [place] [address] Dr. Judy Ramirez Glucose [Mass/Vol] 95 mg/dL Normal 74-106 [facility] Comment on above: Performed By: #### P TT, PT #### [facility] [address] [place] [address] Dr. Judy Ramirez Potassium [Moles/Vol] 4.2 mmol/L Normal 3.5-5.1 [facility] Comment on above: Performed By: #### P TT, PT #### [facility] [address] [place] [address] Dr. Judy Ramirez Sodium [Moles/Vol] 141 mmol/L Normal 136-145 [facility] Comment on above: Performed By: #### P TT, PT #### [facility] [address] [place] [address] Dr. Judy Ramirez Urea nitrogen [Mass/Vol] 24.0 mg/dL Critically high 7.0-18.0 [facility] Comment on above: Performed By: #### P TT, PT #### [facility] [address] [place] [address] Dr. Judy Ramirez Urea nitrogen/Creatinine [Mass ratio] 20.9 mg/mg Normal [facility] Comment on above: Performed By: #### P TT, PT #### [facility] [address] [place] [address] Dr. Judy Ramirez PROTIMEon 08-07-2022 INR Coag (PPP) [Relative time] {INR} Normal [facility] Comment on above: Performed By: #### P TT, PT #### [facility] [address] [place] [address] Dr. Judy Ramirez INR GUIDELINES SEE BELOW Normal [facility] Comment on above: Result Comment: KATHLEEN RED INR: 2.0 - 3.0 CONDITIONS NOT LISTED BELOW 2.5 - 3.5 FOR PROSTHETIC HEART VALVE REPLACEMENT 2.5 - 3.5 RECURRENT THROMBOSIS Performed By: #### P TT, PT #### [facility] [address] [place] [address] Dr. Judy Ramirez PT Coag (PPP) [Time] 9.7 s Normal 9.0-11.6 [facility] Comment on above: Performed By: #### P TT, PT #### [facility] [address] [place] [address] Dr. Judy Ramirez PTTon 08-07-2022 aPTT Coag (Bld) [Time] 33.6 s Normal 22.3-36.2 [facility] Comment on above: Performed By: #### P TT, PT #### [facility] [address] [place] [address] Dr. Judy Ramirez Consent for Procedure/Surger yon 08-06-2022 Consent for Procedure/Surgery [id number]#[id number]:127 Normal [facility] Pre-Certification Formon Pre-Certification Form [id number]#1.00CD:127 Normal [facility] RAD - MISCon 08-06-2022 RAD - MISC [id number]#1.00CD:127 Normal [facility] CALCULI, URINARYon 2,8 Dihydroxyadenine Normal [facility] Comment on above: Performed By: #### P TT, PT #### [facility] [address] [place] [address] Dr. Judy Ramirez Ammonium Acid Urate Normal [facility] Comment on above: Performed By: #### P TT, PT #### [facility] [address] [address] [address] Judy Ramirez Bilirubin Ql (U) Normal [facility] Comment on above: Performed By: #### P TT, PT #### [facility] [address] [address] [address] Judy Ramirez Ca Oxalate Dihydrate 20 % Normal [facility] Comment on above: Performed By: #### P TT, PT #### [facility] [address] [address] [address] Judy Ramirez CaHPO4 (Brushite) [facility] Comment on above: Performed By: #### P TT, PT #### [facility] [address] [address] [address] Judy Ramirez Calcium Bilirubinate Normal [facility] Comment on above: Performed By: #### P TT, PT #### [facility] [address] [address] [address] Judy Ramirez Calcium Carbonate [facility] Comment on above: Performed By: #### P TT, PT #### [facility] [address] [address] [address] Judy Ramirez Calcium Oxalate Monohydrate 80 % [facility] Comment on above: Performed By: #### P TT, PT #### [facility] [address] [address] [address] Judy Ramirez Calcium Palmitate Normal [facility] Comment on above: Performed By: #### P TT, PT #### [facility] [address] [address] [address] Judy Ramirez Calcium Phosphate Normal [facility] Comment on above: Performed By: #### P TT, PT #### [facility] [address] [address] [address] Judy Ramirez Calcium Stearate [facility] Comment on above: Performed By: #### P TT, PT #### [facility] [address] [address] [address] Judy Ramirez Carbonate Apatite Normal [facility] Comment on above: Performed By: #### P TT, PT #### [facility] [address] [address] [address] Judy Ramirez Cellular Material [facility] Comment on above: Performed By: #### P TT, PT #### [facility] [address] [address] [address] Judy Ramirez Cholesterol [facility] Comment on above: Performed By: #### P TT, PT #### [facility] [address] [address] [address] Judy Ramirez Color (U) Brown [facility] Comment on above: Performed By: #### P TT, PT #### [facility] [address] [address] [address] Judy Ramirez Comment [facility] Comment on above: Performed By: #### P TT, PT #### [facility] [address] [place] [address] Dr. Judy Ramirez Comment: Comment Normal [facility] Comment on above: Result Comment: Phys cliffan questions regarding Calculi Analysis contact [facility] at: [phone]. Performed By: #### P TT, PT #### [facility] [address] [place] [address] Dr. Judy Ramirez Composition Comment [facility] Comment on above: Result Comment: Perc entage (Represents the % composition) Performed By: #### P TT, PT #### [facility] [address] [place] [address] Dr. Judy Ramirez Cystine [facility] Comment on above: Performed By: #### P TT, PT #### [facility] [address] [place] [address] Dr. Judy Ramirez Disclaimer: Comment [facility] Comment on above: Result Comment: This test was developed and its performance characteristics determined by [facility]. It has not been cleared or approved by the Food and Drug Administration. Performed By: #### P TT, PT #### [facility] [address] [place] [address] Dr. Judy Ramirez Dried Blood Normal [facility] Comment on above: Performed By: #### P TT, PT #### [facility] [address] [address] [address] Judy Ramirez Drug or Metabolite Normal [facility] Comment on above: Performed By: #### P TT, PT #### [facility] [address] [address] [address] Judy Ramirez Hydroxyapatite Normal [facility] Comment on above: Performed By: #### P TT, PT #### [facility] [address] [address] [address] Judy Ramirez Mg NH4 PO4 (Struvite) [facility] Comment on above: Performed By: #### P TT, PT #### [facility] [address] [place] [address] Dr. Judy Ramirez MgHPO4 (Newberyite) [facility] Comment on above: Performed By: #### P TT, PT #### [facility] [address] [address] [address] Judy Ramirez Other component(s) Normal [facility] Comment on above: Performed By: #### P TT, PT #### [facility] [address] [address] [address] Judy Ramirez PDF . Normal [facility] Comment on above: Performed By: #### P TT, PT #### [facility] [address] [address] [address] Judy Ramirez Photo Comment Normal [facility] Comment on above: Result Comment: Phot ograph will follow under a separate cover Performed By: #### P TT, PT #### [facility] [address] [place] [address] Dr. Judy Ramirez Please note: Comment Normal [facility] Comment on above: Result Comment: Calc hannah report will follow via computer, mail or filter tank tender helper head delivery. Performed By: #### P TT, PT #### [facility] [address] [place] [address] Dr. Judy Ramirez Size 3x3 Normal [facility] Comment on above: Result Comment: Mult iple pieces received. Dimensions of the largest piece reported. Performed By: #### P TT, PT #### [facility] [address] [place] [address] Dr. Judy Ramirez Sodium Acid Urate [facility] Comment on above: Performed By: #### P TT, PT #### [facility] [address] [place] [address] Dr. Judy Ramirez Source Comment [facility] Comment on above: Result Comment: Not provided Performed By: #### P TT, PT #### [facility] [address] [address] [address] Judy Ramirez Triamterene [facility] Comment on above: Performed By: #### P TT, PT #### [facility] [address] [place] [address] Dr. Judy Ramirez Uric Acid [facility] Comment on above: Performed By: #### P TT, PT #### [facility] [address] [place] [address] Dr. Judy Ramirez Uric Acid Dihydrate [facility] Comment on above: Performed By: #### P TT, PT #### [facility] [address] [place] [address] Dr. Judy Ramirez Weight 47 mg [facility] Comment on above: Performed By: #### P TT, PT #### [facility] [address] [place] [address] Dr. Judy Ramirez Xanthine [facility] Comment on above: Performed By: #### P TT, PT #### [facility] [address] [place] [address] Dr. 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 Judy Ramirez CK.MB [Mass/Vol] 0.68 ng/mL Normal <=3.60 [facility] Comment on above: Performed By: #### P TT, PT #### [facility] [address] [address] [address] Judy Ramirez HSTROP 4.3 pg/mL Normal 4.0-51.3 [facility] Comment on above: Result Comment: CUT- OFF POINTS HAVE BEEN ESTABLISHED BASED ON THE FOURTH UNIVERSAL DEFINITIONS OF MYOCARDIAL INFARCTION. THE UPPER REFERENCE LIMIT (URL) OF TROPONIN, DEFINED THE 99TH PERCENTILE OF cTnI DISTRIBUTION IN A REFERENCE POPULATION, HAS BEEN CONFIRMED THE DECISION THRESHOLD FOR UT DIAGNOSIS. Performed By: #### P TT, PT #### [facility] [address] [address] [address] Judy Ramirez YASEMIN 31 ng/mL Normal 9-82 [facility] Comment on above: Performed By: #### P TT, PT #### [facility] [address] [address] [address] Judy Ramirez CBC AUTO DIFFon 07-08-2022 BASO # 0.1 103/ul Normal 0.0-0.1 [facility] Comment on above: Performed By: #### P TT, PT #### [facility] [address] [place] [address] Dr. Judy Ramirez Basophils/100 WBC (Bld) 0.7 % Normal 0.2-2.0 [facility] Comment on above: Performed By: #### P TT, PT #### [facility] [address] [place] [address] Dr. Judy Ramirez EO # 0.2 103/ul Normal 0.0-0.7 [facility] Comment on above: Performed By: #### P TT, PT #### [facility] [address] [place] [address] Dr. Judy Ramirez Eosinophils/100 WBC (Bld) 2.1 % Normal 0.9-7.0 [facility] Comment on above: Performed By: #### P TT, PT #### [facility] [address] [place] [address] Dr. Judy Ramirez Erythrocyte distribution width (RBC) [Ratio] 12.8 % Normal 11.0-15.0 [facility] Comment on above: Performed By: #### P TT, PT #### [facility] [address] [place] [address] Dr. Judy Ramirez Hematocrit (Bld) [Volume fraction] 40.6 % Normal 36.0-48.0 [facility] Comment on above: Performed By: #### P TT, PT #### [facility] [address] [place] [address] Dr. Judy Ramirez Hemoglobin (Bld) [Mass/Vol] 13.6 g/dL Normal 12.0-16.0 [facility] Comment on above: Performed By: #### P TT, PT #### [facility] [address] [place] [address] Dr. Judy Ramirez IG # 0.04 10e3/ul Critically high 0.00-0.03 [facility] Comment on above: Performed By: #### P TT, PT #### [facility] [address] [place] [address] Dr. Judy Ramirez IG % 0.6 % Critically high 0.0-0.5 [facility] Comment on above: Performed By: #### P TT, PT #### [facility] [address] [place] [address] Dr. Judy Ramirez LYMPH # 2.6 103/ul Normal 1.2-3.8 [facility] Comment on above: Performed By: #### P TT, PT #### [facility] [address] [place] [address] Dr. Judy Ramirez Lymphocytes/100 WBC (Bld) 36.8 % Normal 20.5-60.0 [facility] Comment on above: Performed By: #### P TT, PT #### [facility] [address] [place] [address] Dr. Judy Ramirez MANUAL DIFF REQ NO Normal [facility] Comment on above: Performed By: #### P TT, PT #### [facility] [address] [place] [address] Dr. Judy Ramirez MCH (RBC) [Entitic mass] 28.8 pg Normal 26.7-34.0 [facility] Comment on above: Performed By: #### P TT, PT #### [facility] [address] [place] [address] Dr. Judy Ramirez MCHC (RBC) [Mass/Vol] 33.5 g/dL Normal 29.9-35.2 [facility] Comment on above: Performed By: #### P TT, PT #### [facility] [address] [place] [address] Dr. Judy Ramirez MCV (RBC) [Entitic vol] 86.0 fL Normal 81.0-99.0 [facility] Comment on above: Performed By: #### P TT, PT #### [facility] [address] [place] [address] Dr. Judy Ramirez MONO # 0.4 103/ul Normal 0.3-0.8 [facility] Comment on above: Performed By: #### P TT, PT #### [facility] [address] [place] [address] Dr. Judy Ramirez Monocytes/100 WBC (Bld) 6.0 % Normal 1.7-12.0 [facility] Comment on above: Performed By: #### P TT, PT #### [facility] [address] [place] [address] Dr. Judy Ramirez NEUT # 3.8 103/ul Normal 1.4-6.5 [facility] Comment on above: Performed By: #### P TT, PT #### [facility] [address] [place] [address] Dr. Judy Ramirez Neutrophils/100 WBC (Bld) 53.8 % Normal 43.0-75.0 [facility] Comment on above: Performed By: #### P TT, PT #### [facility] [address] [place] [address] Dr. Judy Ramirez Platelet mean volume (Bld) [Entitic vol] 9.6 fL Normal 9.5-13.5 [facility] Comment on above: Performed By: #### P TT, PT #### [facility] [address] [place] [address] Dr. Judy Ramirez PLT 276 103/ul Normal 150-450 [facility] Comment on above: Performed By: #### P TT, PT #### [facility] [address] [place] [address] Dr. Judy Ramirez RBC 4.72 106/ul Normal 4.20-5.40 [facility] Comment on above: Performed By: #### P TT, PT #### [facility] [address] [place] [address] Dr. Judy Ramirez WBC 7.0 103/ul Normal 4.0-11.0 [facility] Comment on above: Performed By: #### P TT, PT #### [facility] [address] [place] [address] Dr. Judy Ramirez CRPon 07-08-2022 CRP [Mass/Vol] mg/L Normal <=1.0 [facility] Comment on above: Performed By: #### P TT, PT #### [facility] [address] [place] [address] Dr. Judy Ramirez D-DIMERon 07-08-2022 D-DIMER 0.39 mg/L FEU Normal <=0.59 [facility] Comment on above: Performed By: #### P TT, PT #### [facility] [address] [place] [address] Dr. Judy Ramirez D-DIMER COMMENTS SEE BELOW Normal [facility] [facility] Comment on above: Result Comment: Incr [...] Performed By: #### P TT, PT #### [facility] [address] [place] [address] Dr. Judy Ramirez LIVER PROFILEon 07-08-2022 Albumin [Mass/Vol] 3.7 g/dL Normal 3.4-5.0 [facility] Comment on above: Performed By: #### T SH, CRP, MG, LIVER, BMP, CMADM #### [facility] [address] [place] [address] Dr. Judy Ramirez Albumin/Globulin [Mass ratio] 0.9 {ratio} Normal [facility] Comment on above: Performed By: #### T SH, CRP, MG, LIVER, BMP, CMADM #### [facility] [address] [place] [address] Dr. Judy Ramirez ALP [Catalytic activity/Vol] 98 U/L Normal 46-116 [facility] Comment on above: Performed By: #### T SH, CRP, MG, LIVER, BMP, CMADM #### [facility] [address] [place] [address] Dr. Judy Ramirez ALT [Catalytic activity/Vol] 37 U/L Normal 14-59 [facility] Comment on above: Performed By: #### T SH, CRP, MG, LIVER, BMP, CMADM #### [facility] [address] [place] [address] Dr. Judy Ramirez AST [Catalytic activity/Vol] 19 U/L Normal 15-37 [facility] Comment on above: Performed By: #### T SH, CRP, MG, LIVER, BMP, CMADM #### [facility] [address] [place] [address] Dr. Judy Ramirez BILI, CONJUGATED 0.1 mg/dL Normal 0.0-0.2 [facility] Comment on above: Performed By: #### T SH, CRP, MG, LIVER, BMP, CMADM #### [facility] [address] [place] [address] Dr. Judy Ramirez Bilirubin [Mass/Vol] 0.4 mg/dL Normal 0.2-1.0 [facility] Comment on above: Performed By: #### T SH, CRP, MG, LIVER, BMP, CMADM #### [facility] [address] [place] [address] Dr. Judy Ramirez Globulin (S) [Mass/Vol] 4.0 g/dL Normal [facility] Comment on above: Performed By: #### T SH, CRP, MG, LIVER, BMP, CMADM #### [facility] [address] [place] [address] Dr. Judy Ramirez Protein [Mass/Vol] 7.7 g/dL Normal 6.4-8.2 [facility] Comment on above: Performed By: #### T SH, CRP, MG, LIVER, BMP, CMADM #### [facility] [address] [place] [address] Dr. Judy Ramirez MAGNESIUMon 07-08-2022 Magnesium [Mass/Vol] 2.1 mg/dL Normal 1.8-2.4 [facility] Comment on above: Performed By: #### T SH, CRP, MG, LIVER, BMP, CMADM #### [facility] [address] [place] [address] Dr. Judy Ramirez PROF CHEM 8 (BAS METB)on Anion gap [Moles/Vol] 11.0 mmol/L Normal [facility] Comment on above: Performed By: #### T SH, CRP, MG, LIVER, BMP, CMADM #### [facility] [address] [address] [address] Judy Ramirez Calcium [Mass/Vol] 9.4 mg/dL Normal 8.5-10.1 [facility] Comment on above: Performed By: #### T SH, CRP, MG, LIVER, BMP, CMADM #### [facility] [address] [address] [address] Judy Ramirez Chloride [Moles/Vol] 102 mmol/L Normal 98-107 [facility] Comment on above: Performed By: #### T SH, CRP, MG, LIVER, BMP, CMADM #### [facility] [address] [place] [address] Dr. Judy Ramirez CO2 [Moles/Vol] 29.4 mmol/L Normal 21.0-32.0 [facility] Comment on above: Performed By: #### T SH, CRP, MG, LIVER, BMP, CMADM #### [facility] [address] [address] [address] Judy Ramirez Creatinine [Mass/Vol] 1.04 mg/dL Critically high 0.55-1.02 [facility] Comment on above: Performed By: #### T SH, CRP, MG, LIVER, BMP, CMADM #### [facility] [address] [place] [address] Dr. uJdy Ramirez EGFR-AF IRANIAN >60 Normal >=60 [facility] Comment on above: Performed By: #### T SH, CRP, MG, LIVER, BMP, CMADM #### [facility] [address] [place] [address] Dr. Judy Ramirez EGFR-NON AF IRANIAN 56 mL/min/1.73m2 Critically low >=60 [facility] Comment on above: Performed By: #### T SH, CRP, MG, LIVER, BMP, CMADM #### [facility] [address] [place] [address] Dr. Judy Ramirez Glucose [Mass/Vol] 98 mg/dL Normal 74-106 [facility] Comment on above: Performed By: #### T SH, CRP, MG, LIVER, BMP, CMADM #### [facility] [address] [place] [address] Dr. Judy Ramirez Potassium [Moles/Vol] 4.4 mmol/L Normal 3.5-5.1 [facility] Comment on above: Performed By: #### T SH, CRP, MG, LIVER, BMP, CMADM #### [facility] [address] [place] [address] Dr. Judy Ramirez Sodium [Moles/Vol] 138 mmol/L Normal 136-145 [facility] Comment on above: Performed By: #### T SH, CRP, MG, LIVER, BMP, CMADM #### [facility] [address] [place] [address] Dr. Judy Ramirez Urea nitrogen [Mass/Vol] 25.0 mg/dL Critically high 7.0-18.0 [facility] Comment on above: Performed By: #### T SH, CRP, MG, LIVER, BMP, CMADM #### [facility] [address] [place] [address] Dr. Judy Ramirez Urea nitrogen/Creatinine [Mass ratio] 24.0 mg/mg Normal [facility] Comment on above: Performed By: #### T SH, CRP, MG, LIVER, BMP, CMADM #### [facility] [address] [place] [address] Dr. Judy Ramirez [facility] mm/hr Normal <=30 [facility] Comment on above: Performed By: #### S EDR #### [facility] [address] [place] [address] Dr. Judy Ramirez TSHon 07-08-2022 TSH 0.701 uIU/mL Normal 0.358-3.740 [facility] Comment on above: Performed By: #### T SH, CRP, MG, LIVER, BMP, CMADM #### [facility] [address] [place] [address] Dr. Judy Ramirez UA (CLEAN/CATCH) MANAGER MINING/MICRO I F IND.on 07-08-2022 Bilirubin Ql (U) Negative Normal NEGATIVE [facility] Comment on above: Performed By: #### U ACSIND, UMICRO #### [facility] [address] [address] [address] Judy Ramirez Clarity (U) CLEAR Normal CLEAR [facility] Comment on above: Performed By: #### U ACSIND, UMICRO #### [facility] [address] [address] [address] Judy Ramirez Color (U) LT. YELLOW Normal YELLOW [facility] Comment on above: Performed By: #### U ACSIND, UMICRO #### [facility] [address] [place] [address] Dr. Judy Ramirez Glucose Ql (U) Negative Normal NEGATIVE [facility] Comment on above: Performed By: #### U ACSIND, UMICRO #### [facility] [address] [place] [address] Dr. Judy Ramirez Hemoglobin Ql (U) Negative Normal NEGATIVE [facility] Comment on above: Performed By: #### U ACSIND, UMICRO #### [facility] [address] [place] [address] Dr. Judy Ramirez Ketones Ql (U) Negative Normal NEGATIVE [facility] Comment on above: Performed By: #### U ACSSIDDHARTHA, UMICRO #### [facility] [address] [place] [address] Dr. Judy Ramirez LEUKOCYTES Negative Normal NEGATIVE [facility] Comment on above: Performed By: #### U ACSIND, UMICRO #### [facility] [address] [place] [address] Dr. Judy Ramirez Nitrite Ql (U) Negative Normal NEGATIVE [facility] Comment on above: Performed By: #### U ACSIND, UMICRO #### [facility] [address] [place] [address] Dr. Judy Ramirez pH (U) 6.0 [pH] Normal 5-9 [facility] Comment on above: Performed By: #### U ACSIND, UMICRO #### [facility] [address] [place] [address] Dr. Judy Ramirez SPEC GRAVITY <=1.005 Abnormal 1.005-<=1.0 25 [facility] Comment on above: Performed By: #### U ACSSIDDHARTHA, UMICRO #### [facility] [address] [place] [address] Dr. Judy Ramirez UA PROTEIN Negative Normal NEGATIVE/ TRACE [facility] Comment on above: Performed By: #### U ACSSIDDHARTHA, UMICRO #### [facility] [address] [place] [address] Dr. Judy Ramirez UR MICRO IND MICROSCOPIC ALREADY ORDERED Normal [facility] Comment on above: Performed By: #### U ACSSIDDHARTHA, UMICRO #### [facility] [address] [place] [address] Dr. Judy Ramirez Urobilinogen Qn (U) 0.2 {Evelyn'U}/dL Normal 0.2 - 1. 0 [facility] Comment on above: Performed By: #### U ACSSIDDHARTHA UMICRO #### [facility] [address] [place] [address] Dr. Judy Ramirez URINE MICROSCOPIC ONLYon BACTERIA NONE SEEN Normal NONE SEEN [facility] Comment on above: Performed By: #### U ACSSIDDHARTHA, UMICRO #### [facility] [address] [place] [address] Dr. Judy Ramirez Bacteria identified Cx Nom (U) NOT INDICATED Normal [facility] Comment on above: Performed By: #### U ACSSIDDHARTHA, UMICRO #### [facility] [address] [place] [address] Dr. Judy Ramirez CAST NONE SEEN Normal NONE SEEN [facility] Comment on above: Performed By: #### U ACSIND, UMICRO #### [facility] [address] [place] [address] Dr. Judy Ramirez Crystals LM Nom (Urine sed) NONE SEEN Normal NONE SEEN [facility] Comment on above: Performed By: #### U ACSIND, UMICRO #### [facility] [address] [place] [address] Dr. Judy Ramirez Epithelial cells LM Ql (Urine sed) FEW Abnormal NONE SEEN /RARE [facility] Comment on above: Performed By: #### U ACSIND, UMICRO #### [facility] [address] [address] [address] Judy Ramirez MUCOUS TRACE Abnormal NONE SEEN [facility] Comment on above: Performed By: #### U ACSIND, UMICRO #### [facility] [address] [address] [address] Judy Ramirez RBC NONE SEEN Abnormal 0-2 [facility] Comment on above: Performed By: #### [facility], [facility] #### [facility] [address] [address] [address] Judy Ramirez WBC NONE SEEN Normal NONE SEEN [facility] Comment on above: Performed By: #### [facility], U[facility] #### [facility] [address] [address] [address] Judy Ramirez Operative Reporton Operative Report [id number]#1.00CD:127 Normal [facility] RAD - MISCon 07-02-2022 RAD - MISC [id number]#1.00CD:127 Normal [facility] XR KUB 1 VIEWon 07-02-2022 XR [...] by: JERICA HOOPER Date: 2022-07-02 12:05 Normal [facility] ECG 12-Leadon 06-30-2022 ECG 12-Lead [id number]#1.00CD:127 Normal [facility] Lab Reportson 06-30-2022 Lab Reports [id number]#1.00CD:127 Normal [facility] CBC AUTO DIFFon 06-29-2022 BASO # 0.0 103/ul Normal 0.0-0.1 [facility] Comment on above: Performed By: #### P TT, PT #### [facility] [address] [place] [address] Dr. Judy Ramirez Basophils/100 WBC (Bld) 0.4 % Normal 0.2-2.0 [facility] Comment on above: Performed By: #### P TT, PT #### [facility] [address] [place] [address] Dr. Judy Ramirez EO # 0.1 103/ul Normal 0.0-0.7 [facility] Comment on above: Performed By: #### P TT, PT #### [facility] [address] [place] [address] Dr. Judy Ramirez Eosinophils/100 WBC (Bld) 1.5 % Normal 0.9-7.0 [facility] Comment on above: Performed By: #### P TT, PT #### [facility] [address] [place] [address] Dr. Judy Ramirez Erythrocyte distribution width (RBC) [Ratio] 13.1 % Normal 11.0-15.0 [facility] Comment on above: Performed By: #### P TT, PT #### [facility] [address] [place] [address] Dr. Judy Ramirez Hematocrit (Bld) [Volume fraction] 40.7 % Normal 36.0-48.0 [facility] Comment on above: Performed By: #### P TT, PT #### [facility] [address] [place] [address] Dr. Judy Ramirez Hemoglobin (Bld) [Mass/Vol] 13.8 g/dL Normal 12.0-16.0 [facility] Comment on above: Performed By: #### P TT, PT #### [facility] [address] [place] [address] Dr. Judy Ramirez IG # 0.03 10e3/ul Normal 0.00-0.03 [facility] Comment on above: Performed By: #### P TT, PT #### [facility] [address] [place] [address] Dr. Judy Ramirez IG % 0.4 % Normal 0.0-0.5 [facility] Comment on above: Performed By: #### P TT, PT #### [facility] [address] [place] [address] Dr. Judy Ramirez LYMPH # 1.9 103/ul Normal 1.2-3.8 [facility] Comment on above: Performed By: #### P TT, PT #### [facility] [address] [place] [address] Dr. Judy Ramirez Lymphocytes/100 WBC (Bld) 24.5 % Normal 20.5-60.0 [facility] Comment on above: Performed By: #### P TT, PT #### [facility] [address] [place] [address] Dr. Judy Ramirez MANUAL DIFF REQ NO Normal [facility] Comment on above: Performed By: #### P TT, PT #### [facility] [address] [place] [address] Dr. Judy Ramirez MCH (RBC) [Entitic mass] 28.4 pg Normal 26.7-34.0 [facility] Comment on above: Performed By: #### P TT, PT #### [facility] [address] [place] [address] Dr. Judy Ramirez MCHC (RBC) [Mass/Vol] 33.9 g/dL Normal 29.9-35.2 [facility] Comment on above: Performed By: #### P TT, PT #### [facility] [address] [place] [address] Dr. Judy Ramirez MCV (RBC) [Entitic vol] 83.7 fL Normal 81.0-99.0 [facility] Comment on above: Performed By: #### P TT, PT #### [facility] [address] [place] [address] Dr. Judy Ramirez MONO # 0.5 103/ul Normal 0.3-0.8 [facility] Comment on above: Performed By: #### P TT, PT #### [facility] [address] [place] [address] Dr. Judy Ramirez Monocytes/100 WBC (Bld) 6.5 % Normal 1.7-12.0 [facility] Comment on above: Performed By: #### P TT, PT #### [facility] [address] [place] [address] Dr. Judy Ramirez NEUT # 5.1 103/ul Normal 1.4-6.5 [facility] Comment on above: Performed By: #### P TT, PT #### [facility] [address] [place] [address] Dr. Judy Ramirez Neutrophils/100 WBC (Bld) 66.7 % Normal 43.0-75.0 [facility] Comment on above: Performed By: #### P TT, PT #### [facility] [address] [place] [address] Dr. Judy Ramirez Platelet mean volume (Bld) [Entitic vol] 9.5 fL Normal 9.5-13.5 [facility] Comment on above: Performed By: #### P TT, PT #### [facility] [address] [place] [address] Dr. Judy Ramirez PLT 238 103/ul Normal 150-450 [facility] Comment on above: Performed By: #### P TT, PT #### [facility] [address] [place] [address] Dr. Judy Ramirez RBC 4.86 106/ul Normal 4.20-5.40 [facility] Comment on above: Performed By: #### P TT, PT #### [facility] [address] [place] [address] Dr. Judy Ramirez WBC 7.6 103/ul Normal 4.0-11.0 [facility] Comment on above: Performed By: #### P TT, PT #### [facility] [address] [place] [address] Dr. Judy Ramirez Lab Reportson 06-29-2022 Lab Reports [id number]#1.00CD:127 Normal [facility] PROF CHEM 8 (BAS METB)on Anion gap [Moles/Vol] 11.5 mmol/L Normal Th e [facility] Comment on above: Performed By: #### B MP #### [facility] [address] [address] [address] Judy Ramirez Calcium [Mass/Vol] 9.9 mg/dL Normal 8.5-10.1 [facility] Comment on above: Performed By: #### B MP #### [facility] [address] [address] [address] Judy Ramirez Chloride [Moles/Vol] 105 mmol/L Normal 98-107 [facility] Comment on above: Performed By: #### B MP #### [facility] [address] [address] [address] Judy Ramirez CO2 [Moles/Vol] 28.1 mmol/L Normal 21.0-32.0 [facility] Comment on above: Performed By: #### B MP #### [facility] [address] [address] [address] Judy Ramirez Creatinine [Mass/Vol] 1.11 mg/dL Critically high 0.55-1.02 [facility] Comment on above: Performed By: #### B MP #### [facility] [address] [address] [address] Judy Ramirez EGFR-AF IRANIAN >60 Normal >=60 [facility] Comment on above: Performed By: #### B MP #### [facility] [address] [address] [address] Judy Ramirez EGFR-NON AF IRANIAN 52 mL/min/1.73m2 Critically low >=60 [facility] Comment on above: Performed By: #### B MP #### [facility] [address] [address] [address] Judy Ramirez Glucose [Mass/Vol] 97 mg/dL Normal 74-106 [facility] Comment on above: Performed By: #### B MP #### [facility] [address] [address] [address] Judy Ramirez Potassium [Moles/Vol] 3.6 mmol/L Normal 3.5-5.1 [facility] Comment on above: Performed By: #### B MP #### [facility] [address] [address] [address] Judy Ramirez Sodium [Moles/Vol] 141 mmol/L Normal 136-145 [facility] Comment on above: Performed By: #### B MP #### [facility] [address] [address] [address] Judy Ramirez Urea nitrogen [Mass/Vol] 15.0 mg/dL Normal 7.0-18.0 [facility] Comment on above: Performed By: #### B MP #### [facility] [address] [place] [address] Dr. Judy Ramirez Urea nitrogen/Creatinine [Mass ratio] 13.5 mg/mg Normal [facility] Comment on above: Performed By: #### B MP #### [facility] [address] [place] [address] Dr. Judy Ramirez PROTIMEon 06-29-2022 INR Coag (PPP) [Relative time] {INR} Normal [facility] Comment on above: Performed By: #### S EDR #### [facility] [address] [place] [address] Dr. Judy Ramirez INR GUIDELINES SEE BELOW Normal [facility] Comment on above: Result Comment: KATHLEEN RED INR: 2.0 - 3.0 CONDITIONS NOT LISTED BELOW 2.5 - 3.5 FOR PROSTHETIC HEART VALVE REPLACEMENT 2.5 - 3.5 RECURRENT THROMBOSIS Performed By: #### S EDR #### [facility] [address] [place] [address] Dr. Judy Ramirez PT Coag (PPP) [Time] 9.8 s Normal 9.0-11.6 [facility] Comment on above: Performed By: #### S EDR #### [facility] [address] [place] [address] Dr. Judy Ramirez PTTon 06-29-2022 aPTT Coag (Bld) [Time] 35.3 s Normal 22.3-36.2 [facility] Comment on above: Performed By: #### S EDR #### [facility] [address] [place] [address] Dr. Judy Ramirez RAD - CT Reporton 06-29-2022 RAD - CT Report [id number]#1.00CD:127 Normal [facility] RAD - MISCon 06-29-2022 RAD - MISC [id number]#1.00CD:[address] [facility] Consent for Procedure/Surger yon 06-23-2022 Consent for Procedure/Surgery [id number]#1.00CD:127 Normal [facility] Physician Referralon 023 Physician Referral [id number]#1.00CD:127 Normal [facility] Pre-Certification Formon Pre-Certification Form [id number]#1.00CD:[address] [facility] Ambulatory Visit Summaryon 0 06-22-2022 Ambulatory Visit Summary CINTHIA BADILLO :1970 Visit Date:06/22/2022 Ambulatory Visit Instructions Your Diagnosis Kidney stone Left flank pain Tests Performed Urnls Dip Stick Auto w/o Microscopy POC 35136 Your Care Team Attending Physician - PATI DOHERTY, Anand Fonseca Primary Care Physician - KAMILLA PATTON CNP This Is Your Medications List Contact prescribing physician if questions or concerns amitriptyline (amitriptyline 10 mg Tab) ascorbic acid (Vitamin C) cranberry (Cranberry) lactobacillus acidophilus (Acidophilus Probiotic Blend) melatonin (Melatonin) multivitamin multivitamin with minerals (Viactiv Soft Calcium Chews) omega-3 polyunsaturated fatty acids (Shelby-3 oral capsule) pantoprazole (Pantoprazole [address] Tab) trazodone (traZODONE 50 mg Tab) Procedures Performed Cholecystectomy, Hysterectomy. Discharge Vitals Height 165 cm Height 65 in Weight 92 kg Weight 202.4 lb BMI 33.79 What to do next You Need to Schedule the Following Appointments Follow Up with PATI DOHERTY, NICHELLE Sanabria When: Where: [facility] [address], [place] [id number]- Medications What How Much When Instructions Unchanged [...] or concerns Unchanged omega-3 polyunsaturated fatty acids (Shelby-3 oral capsule) Contact prescribing physician if questions or concerns Unchanged pantoprazole (Pantoprazole [address] Tab) Contact prescribing physician if questions or concerns Unchanged trazodone (traZODONE 50 mg Tab) Contact prescribing physician if questions or concerns Test Results Urnls Dip Stick Auto w/o Microscopy POC 67099 (06/22/2022) Bilirubin Urine Dipstick - Negative Blood Urine Dipstick - Negative Glucose Urine Dipstick - Negative Ketones Urine Dipstick - Negative Leukocytes Urine Dipstick - Negative Nitrite Urine Dipstick - Negative Protein Urine Dipstick - Negative Specific [place] Urine Dipstick - <=1.005 Urine Appearance Urine [...] allow each (more content not included)... Normal [facility] Patient Educationon 06-23-19 23 Patient Education [...] Rhubarb. ? Beets. ? Potato chips and north korean fries. ? Nuts. ? If you regularly take a diuretic medicine, make sure to eat at least 1?2 fruits or vegetables high in potassium each day. These include: ? Avocado. ? Banana. ? Stanton, prune, carrot, or tomato juice. ? Baked [...] Salad dr (more content not included)... Normal [facility] XR KUB 1 VIEWon 06-20-2022 XR [...] LUIS M SOLOMON Date: 2022-06-20 12:12 Normal [facility] MAMM SCREEN 3D LEE CADon 06-16-2022 MG MAMM SCREEN 3D LEE CAD Patient: CINTHIA BADILLO Exam Date: 06/16/2022 : 1970 Gender:F Ordering : ZELALEM PATTON [facility] Admission #: [id number] Family : Order #: [id number] CLICK HERE TO VIEW EXAM RADIOLOGY REPORT [...] breast cancer at age 80. LOCATION: [facility] BREAST COMPOSITION: Scattered areas fibroglandular density. FINDINGS: [...] Solomon MD on 06/17/2022 at 08:06 Normal [facility] CT ABD/PELV W CONon 06-04-[address] ABD/PELV W CON EXAMINATION: CT ABD/ [...] JERICA HOOPER Date: 2022-06-03 08:59 Normal [facility] AMYLASEon 05-23-2022 Amylase [Catalytic activity/Vol] 74 U/L Normal 25-115 [facility] Comment on above: Performed By: #### S EDR #### [facility] [address], [place] [address] Dr. Judy Ramirez CBC AUTO DIFFon 05-23-2022 BASO # 0.0 103/ul Normal 0.0-0.1 [facility] Comment on above: Performed By: #### S EDR #### [facility] [address], [place] [address] Dr. Judy Ramirez Basophils/100 WBC (Bld) 0.5 % Normal 0.2-2.0 [facility] Comment on above: Performed By: #### S EDR #### [facility] [address] [place] [address] Dr. Judy Ramirez EO # 0.1 103/ul Normal 0.0-0.7 [facility] Comment on above: Performed By: #### S EDR #### [facility] [address] [place] [address] Dr. Judy Ramirez Eosinophils/100 WBC (Bld) 2.6 % Normal 0.9-7.0 [facility] Comment on above: Performed By: #### S EDR #### [facility] [address] [place] [address] Dr. Judy Ramirez Erythrocyte distribution width (RBC) [Ratio] 12.4 % Normal 11.0-15.0 [facility] Comment on above: Performed By: #### S EDR #### [facility] [address] [place] [address] Dr. Judy Ramirez Hematocrit (Bld) [Volume fraction] 41.1 % Normal 36.0-48.0 [facility] Comment on above: Performed By: #### S EDR #### [facility] [address] [place] [address] Dr. Judy Ramirez Hemoglobin (Bld) [Mass/Vol] 13.8 g/dL Normal 12.0-16.0 [facility] Comment on above: Performed By: #### S EDR #### [facility] [address] [place] [address] Dr. Judy Ramirez IG # 0.01 10e3/ul Normal 0.00-0.03 [facility] Comment on above: Performed By: #### S EDR #### [facility] [address] [place] [address] Dr. Judy Ramirez IG % 0.2 % Normal 0.0-0.5 [facility] Comment on above: Performed By: #### S EDR #### [facility] [address] [place] [address] Dr. Judy Ramirez LYMPH # 2.1 103/ul Normal 1.2-3.8 [facility] Comment on above: Performed By: #### S EDR #### [facility] [address] [place] [address] Dr. Judy Ramirez Lymphocytes/100 WBC (Bld) 37.8 % Normal 20.5-60.0 [facility] Comment on above: Performed By: #### S EDR #### [facility] [address] [place] [address] Dr. Judy Ramirez MANUAL DIFF REQ NO Normal [facility] Comment on above: Performed By: #### S EDR #### [facility] [address] [place] [address] Dr. Judy Ramirez MCH (RBC) [Entitic mass] 28.4 pg Normal 26.7-34.0 [facility] Comment on above: Performed By: #### S EDR #### [facility] [address] [place] [address] Dr. Judy Ramirez MCHC (RBC) [Mass/Vol] 33.6 g/dL Normal 29.9-35.2 [facility] Comment on above: Performed By: #### S EDR #### [facility] [address] [place] [address] Dr. Judy Ramirez MCV (RBC) [Entitic vol] 84.6 fL Normal 81.0-99.0 [facility] Comment on above: Performed By: #### S EDR #### [facility] [address] [place] [address] Dr. Judy Ramirez MONO # 0.3 103/ul Normal 0.3-0.8 [facility] Comment on above: Performed By: #### S EDR #### [facility] [address] [place] [address] Dr. Judy Ramirez Monocytes/100 WBC (Bld) 5.5 % Normal 1.7-12.0 [facility] Comment on above: Performed By: #### S EDR #### [facility] [address] [place] [address] Dr. Judy Ramirez NEUT # 2.9 103/ul Normal 1.4-6.5 [facility] Comment on above: Performed By: #### S EDR #### [facility] [address] [place] [address] Dr. Judy Ramirez Neutrophils/100 WBC (Bld) 53.4 % Normal 43.0-75.0 [facility] Comment on above: Performed By: #### S EDR #### [facility] [address] [place] [address] Dr. Judy Ramirez Platelet mean volume (Bld) [Entitic vol] 9.4 fL Critically low 9.5-13.5 [facility] Comment on above: Performed By: #### S EDR #### [facility] [address] [place] [address] Dr. Judy Ramirez PLT 274 103/ul Normal 150-450 [facility] Comment on above: Performed By: #### S EDR #### [facility] [address] [place] [address] Dr. Judy Ramirez RBC 4.86 106/ul Normal 4.20-5.40 [facility] Comment on above: Performed By: #### S EDR #### [facility] [address] [place] [address] Dr. Judy Ramirez WBC 5.5 103/ul Normal 4.0-11.0 [facility] Comment on above: Performed By: #### S EDR #### [facility] [address] [place] [address] Dr. Judy Ramirez LIPASEon 05-23-2022 Lipase [Catalytic activity/Vol] 97.0 U/L Normal 73.0-393.0 [facility] Comment on above: Performed By: #### U ACSIND, UMICRO #### [facility] [address] [place] [address] Dr. Judy Ramirez LIPID PROFILEon 05-23-2022 CHOL-HDL RATIO NORM SEE BELOW Normal [facility] Comment on above: Result Comment: 3.3 - 4.4 LOW RISK 4.4 - 7.1 AVERAGE RISK 7.1 - 11.0 MODERATE RISK >11.0 HIGH RISK Performed By: #### S EDR #### [facility] [address], [place] [address] Dr. Judy Ramirez Cholesterol [Mass/Vol] 203 mg/dL Critically high <=200 [facility] Comment on above: Performed By: #### S EDR #### [facility] [address] [place], [place] [address] Dr. Judy Ramirez Cholesterol in HDL [Mass/Vol] 48 mg/dL Normal 40-60 [facility] Comment on above: Performed By: #### S EDR #### [facility] [address] [address] [address] Judy Ramirez Cholesterol in LDL [Mass/Vol] 130.0 mg/dL Normal [facility] Comment on above: Performed By: #### S EDR #### [facility] [address] [address] [address] Judy Ramirez Cholesterol.total/Cho lesterol in HDL [Mass ratio] 4.2 {ratio} Normal [facility] Comment on above: Performed By: #### S EDR #### [facility] [address] [address] [address] Judy Ramirez HDL NORMAL > or = 60 mg/dl - LO W CARDIOVASCULAR RISK <40 mg/dl - HIGH CARDIOVASCULAR RISK Normal [facility] Comment on above: Performed By: #### S EDR #### [facility] [address] [address] [address] Judy Ramirez LDL CALC NORMAL SEE BELOW Normal [facility] Comment on above: Result Comment: <100 mg/dl OPTIMAL 100 - 129 mg/dl NEAR OR ABOVE OPTIMAL 130 - 159 mg/dl BORDERLINE HIGH 160 - 189 mg/dl HIGH >190 mg/dl VERY HIGH Performed By: #### S EDR #### [facility] [address] [address] [address] Judy Ramirez Triglyceride [Mass/Vol] 125 mg/dL Normal <=150 [facility] Comment on above: Performed By: #### S EDR #### [facility] [address] [address] [address] Judy Ramirez VLDL CALC 25.0 mg/dL Normal [facility] Comment on above: Performed By: #### S EDR #### [facility] [address] [address] [address] Judy Ramirez PROF 14(COMP METB)on 023 Albumin [Mass/Vol] 3.5 g/dL Normal 3.4-5.0 [facility] Comment on above: Performed By: #### U ADITYA MARTINEZRO #### [facility] [address] [place] [address] Dr. Judy Ramirez Albumin/Globulin [Mass ratio] 0.9 {ratio} Normal [facility] Comment on above: Performed By: #### U ADITYA MARTINEZRO #### [facility] [address] [place] [address] Dr. Judy Ramirez ALP [Catalytic activity/Vol] 86 U/L Normal 46-116 [facility] Comment on above: Performed By: #### U ADITYA MARTINEZRO #### [facility] [address] [place] [address] Dr. Judy Ramirez ALT [Catalytic activity/Vol] 32 U/L Normal 14-59 [facility] Comment on above: Performed By: #### U ADITYA MARTINEZRO #### [facility] [address] [place] [address] Dr. Judy Ramirez Anion gap [Moles/Vol] 9.6 mmol/L Normal [facility] Comment on above: Performed By: #### U ADITYA MARTINEZRO #### [facility] [address] [place] [address] Dr. Judy Ramirez AST [Catalytic activity/Vol] 19 U/L Normal 15-37 [facility] Comment on above: Performed By: #### U ADITYA MARTINEZRO #### [facility] [address] [place] [address] Dr. Judy Ramirez Bilirubin [Mass/Vol] 0.5 mg/dL Normal 0.2-1.0 [facility] Comment on above: Performed By: #### U ADITYA MARTINEZRO #### [facility] [address] [place] [address] Dr. Judy Ramirez Calcium [Mass/Vol] 9.3 mg/dL Normal 8.5-10.1 [facility] Comment on above: Performed By: #### U ADITYA MARTINEZRO #### [facility] [address] [address] [address] Judy Ramirez Chloride [Moles/Vol] 106 mmol/L Normal 98-107 [facility] Comment on above: Performed By: #### U PINKY MARTINEZICRO #### [facility] [address] [address] [address] Judy Ramirez CO2 [Moles/Vol] 30.7 mmol/L Normal 21.0-32.0 [facility] Comment on above: Performed By: #### U ADITYA MARTINEZRO #### [facility] [address] [address] [address] Judy Ramirez Creatinine [Mass/Vol] 0.92 mg/dL Normal 0.55-1.02 [facility] Comment on above: Performed By: #### ADITYA RATLIFFRO #### [facility] [address] [place] [address] Dr. Judy Ramirez EGFR-AF IRANIAN >60 Normal >=60 [facility] Comment on above: Performed By: #### ADITYA RATLIFFRO #### [facility] [address] [place] [address] Dr. Judy Ramirez EGFR-NON AF IRANIAN >60 Normal >=60 [facility] Comment on above: Performed By: #### U ADITYA MARTINEZRO #### [facility] [address] [place] [address] Dr. Judy Ramirez Globulin (S) [Mass/Vol] 3.9 g/dL Normal [facility] Comment on above: Performed By: #### U ACSADITYA CARLRO #### [facility] [address] [address] [address] Judy Ramirez Glucose [Mass/Vol] 95 mg/dL Normal 74-106 [facility] Comment on above: Performed By: #### U ADITYA MARTINEZRO #### [facility] [address] [address] [address] Judy Ramirez Potassium [Moles/Vol] 4.3 mmol/L Normal 3.5-5.1 [facility] Comment on above: Performed By: #### U ACSSIDDHARTHA, UMICRO #### [facility] [address] [address] [address] Judy Ramirez Protein [Mass/Vol] 7.4 g/dL Normal 6.4-8.2 [facility] Comment on above: Performed By: #### U ACSSIDDHARTHA, UMICRO #### [facility] [address] [address] [address] Judy Ramirez Sodium [Moles/Vol] 142 mmol/L Normal 136-145 [facility] Comment on above: Performed By: #### U ACSSIDDHARTHA, UMICRO #### [facility] [address] [place] [address] Dr. Judy Ramirez Urea nitrogen [Mass/Vol] 17.0 mg/dL Normal 7.0-18.0 [facility] Comment on above: Performed By: #### U ACSSIDDHARTHA, UMICRO #### [facility] [address] [place] [address] Dr. Judy Ramirez Urea nitrogen/Creatinine [Mass ratio] 18.5 mg/mg Normal [facility] Comment on above: Performed By: #### U ACSSIDDHARTHA, UMICRO #### [facility] [address] [place] [address] Dr. Judy Ramirez UA RANDOM W/MICROSCOPICon BACTERIA NONE SEEN Normal NONE SEEN [facility] Comment on above: Performed By: #### P TT, PT #### [facility] [address] [place] [address] Dr. Judy Ramirez Bilirubin Ql (U) Negative Normal NEGATIVE [facility] Comment on above: Performed By: #### P TT, PT #### [facility] [address] [place] [address] Dr. Judy Ramirez CAST NONE SEEN Normal NONE SEEN [facility] Comment on above: Performed By: #### P TT, PT #### [facility] [address] [place] [address] Dr. Judy Ramirez Clarity (U) CLEAR Normal CLEAR [facility] Comment on above: Performed By: #### P TT, PT #### [facility] [address] [place] [address] Dr. Judy Ramirez Color (U) LT. YELLOW Normal YELLOW [facility] Comment on above: Performed By: #### P TT, PT #### [facility] [address] [place] [address] Dr. Judy Ramirez Crystals LM Nom (Urine sed) NONE SEEN Normal NONE SEEN [facility] Comment on above: Performed By: #### P TT, PT #### [facility] [address] [place] [address] Dr. Judy Ramirez Epithelial cells LM Ql (Urine sed) FEW Abnormal NONE SEEN /RARE [facility] Comment on above: Performed By: #### P TT, PT #### [facility] [address] [place] [address] Dr. Judy Ramirez Glucose Ql (U) Negative Normal NEGATIVE [facility] Comment on above: Performed By: #### P TT, PT #### [facility] [address] [place] [address] Dr. Judy Ramirez Hemoglobin Ql (U) TRACE-INTACT Abnormal NEGATIVE [facility] Comment on above: Performed By: #### P TT, PT #### [facility] [address] [place] [address] Dr. Judy Ramirez Ketones Ql (U) Negative Normal NEGATIVE [facility] Comment on above: Performed By: #### P TT, PT #### [facility] [address] [place] [address] Dr. Judy Ramirez LEUKOCYTES Negative Normal NEGATIVE [facility] Comment on above: Performed By: #### P TT, PT #### [facility] [address] [place] [address] Dr. Judy Ramirez MUCOUS NONE SEEN Normal NONE SEEN [facility] Comment on above: Performed By: #### P TT, PT #### [facility] [address] [place] [address] Dr. Judy Ramirez Nitrite Ql (U) Negative Normal NEGATIVE [facility] Comment on above: Performed By: #### P TT, PT #### [facility] [address] [place] [address] Dr. Judy Ramirez pH (U) 7.0 [pH] Normal 5-9 [facility] Comment on above: Performed By: #### P TT, PT #### [facility] [address] [place] [address] Dr. Judy Ramirez RBC NONE SEEN Abnormal 0-2 [facility] Comment on above: Performed By: #### P TT, PT #### [facility] [address] [place] [address] Dr. Judy Ramirez SPEC GRAVITY 1.010 Normal 1.005-<=1.0 25 [facility] Comment on above: Performed By: #### P TT, PT #### [facility] [address] [place] [address] Dr. Judy Ramirez UA PROTEIN Negative Normal NEGATIVE/ TRACE [facility] Comment on above: Performed By: #### P TT, PT #### [facility] [address] [place] [address] Dr. Judy Ramirez Urobilinogen Qn (U) 0.2 {Evelyn'U}/dL Normal 0.2 - 1. 0 [facility] Comment on above: Performed By: #### P TT, PT #### [facility] [address] [place] [address] Dr. Judy Ramirez WBC NONE SEEN Normal NONE SEEN [facility] Comment on above: Performed By: #### P TT, PT #### [facility] [address] [place] [address] Dr. Judy Ramirez CULTURE THROATon 12-24-2021 CULTURE [...] F Tetracycline >=16 R F Normal [facility] Comment on above: Performed By: #### S EDR #### [facility] [address] [place] [address] [address] [address] Judy Ramirez Covid-19 PCR ([facility])on 12-13 SARS-CoV-2 (COVID-19) RNA CAROLA+probe Ql (Unsp spec) Not detected Normal NOT DETECTED [facility] Comment on above: Result Comment: This test is not yet approved or cleared by the [place] FDA. When there are no FDA-approved or cleared tests available, and other criteria are met, FDA can make tests available under an emergency access mechanism called an Emergency Use Authorization (EUA). The EUA for this test is supported by the [place] of Health and Human Service's (HHS's) declaration [...] Performed By: #### U ACSIND, UMICRO #### [facility] [address], [place] [address] Dr. Judy Ramirez COVID-19 Positive/NegativeOr dered By: Luis M Juarez on 08-13-2021 SARS-CoV-2 (COVID-19) N gene CAROLA+probe Ql (Resp) Negative Negative [facility] Comment on above: Testing for SARS-CoV -2 by RT-PCR This test was developed and its performance characteristics determined by [employer] and validated at the [facility]. This test has not been FDA [...] Facility 04-20-2023 15:47-0500 Body height 167.6 cm Zoniaaaron Pak DPM Work Phone: [facility] 04-20-2023 15:47-0500 Body mass index (BMI) [Ratio] 34.22 kg/m2 Zoniaaaron Pak DPM Work Phone: [facility] 04-20-2023 15:47-0500 Body weight 96.16 kg Zonia Reyes DPM Work Phone: [facility] 12-28-2022 14:59-0400 Blood Pressure Location Anand LOPEZ [facility] 12-28-2022 14:59-0400 Diastolic blood pressure 86 mm[Hg] Anand LOPEZ [facility] 12-28-2022 14:59-0400 Heart rate 80 /min Anand LOPEZ [facility] 12-28-2022 14:59-0400 Respiratory rate 16 /min Anand LOPEZ [facility] 12-28-2022 14:59-0400 Systolic blood pressure 121 mm[Hg] Anand LOPEZ [facility] 09-30-2022 09:18-0400 Diastolic blood pressure 62 mm[Hg] [facility] 09-30-2022 09:18-0400 Heart rate 69 /min [facility] 09-30-2022 09:18-0400 Respiratory rate 16 /min [facility] 09-30-2022 09:18-0400 SaO2% (BldA) [Mass fraction] 98 % [facility] 09-30-2022 09:18-0400 Systolic blood pressure 96 mm[Hg] [facility] 09-30-2022 07:14-0400 Body height 165.1 cm [facility] 09-30-2022 07:14-0400 Body temperature 97.6 [degF] [facility] 09-30-2022 07:14-0400 Body weight 88.45 kg [facility] 08-13-2022 15:00-0400 Body weight 107 mg [facility] 08-15-2021 09:15-0400 Diastolic blood pressure 64 mm[Hg] DO Luis M Hykes Work Phone: [facility] 08-15-2021 09:15-0400 Heart rate 80 /min DO Luis M Hykes Work Phone: [facility] 08-15-2021 09:15-0400 Respiratory rate 20 /min DO Luis M Hykes Work Phone: [facility] 08-15-2021 09:15-0400 SaO2% (BldA) [Mass fraction] 100 % DO Luis M Hykes Work Phone: [facility] 08-15-2021 09:15-0400 Systolic blood pressure 112 mm[Hg] DO Luis M Hykes Work Phone: [facility] 08-15-2021 07:15-0400 Body height 166.37 cm DO Luis M Hykes Work Phone: [facility] 08-15-2021 07:15-0400 Body mass index (BMI) [Ratio] 32.8 kg/m2 DO Luis M Hykes Work Phone: [facility] 08-15-2021 07:15-0400 Body temperature 98.1 [degF] DO Luis M Juarez Work Phone: [facility] 08-15-2021 07:15-0400 Body weight 90.71 kg DO Luis M Juarez Work Phone: [facility] Encounters Encounter Date Encounter Type Care Provider Facility Start: 01-07-2024 ambulatory Anand Raymundo Cutler ty:CECILIA Russell Start: 08-02-2023 ambulatory Kristine stack PA-C Facility:[facility] Start: 07-05-2023 End: 07-05-2023 ambulatory KAMILLA AICMeghanaHOLZ Not Available Start: 06-21-2023 ambulatory Kristine stack PA-C Facility:[facility] Start: 05-17-2023 End: 05-17-2023 ambulatory KAMILLA AICHHOLZ Not Available Start: 04-28-2023 Refill Kamilla Aichholz [facility] [facility] Work Phone: [facility] Comment on above: Gastroesophageal ref lux disease without esophagitis Start: 04-20-2023 End: 04-20-2023 ambulatory ZONIA PAK Not Available Start: 04-20-2023 End: 04-20-2023 Office outpatient visit 15 minutes Zonia Pak DPM Work Phone: [facility] Comment on above: Onychomycosis (Prima ry Dx); Nail dystrophy; Pain in toes of both feet Start: 04-06-2023 End: 04-15-2023 ambulatory ISABELLE BARRIOS [facility] Start: 03-18-2023 End: 03-18-2023 ambulatory KAMILLA AICHHOLZ Not Available Start: 01-19-2023 End: 01-20-2023 ambulatory Rose Pace Facility[facility] Start: 01-19-2023 End: 01-19-2023 Patient encounter procedure Rose Pace [facility] Start: 12-28-2022 End: 12-29-2022 ambulatory Anand LOPEZ Facility:[facility] Start: 12-28-2022 End: 12-28-2022 Patient encounter procedure Anand LOPEZ [facility] Start: 09-30-2022 End: 09-30-2022 ambulatory Imad Asaad Facility:[facility] Start: 09-30-2022 End: 09-30-2022 Admission to same day surgery center [facility] Work Phone: Start: 09-30-2022 End: 09-30-2022 ambulatory NON STAFF [facility] Work Phone: Start: 08-31-2022 End: 08-31-2022 ambulatory Imad Asaad Facility:[facility] Start: 08-31-2022 End: 08-31-2022 ambulatory NON STAFF [facility] Work Phone: Start: 08-31-2022 End: 08-31-2022 Patient encounter procedure [facility] [place] Work Phone: Start: 08-13-2022 End: 08-14-2022 ambulatory NON STAFF [facility] Work Phone: Start: 08-13-2022 End: 08-13-2022 Departed Referred [facility] [place] Work Phone: Start: 08-11-2022 End: 08-15-2022 Pre-admission assessment Rose Robisonfranklyn [facility] Start: 08-10-2022 Encounter for preprocedural laboratory examination DR ANAND LOPEZ . [facility] Start: 08-07-2022 End: 08-08-[address] ANAND LOPEZ . Facility: Start: 08-07-2022 End: 08-08-2022 Encounter for preprocedural laboratory examination DR ANAND LOPEZ . Facility:[facility] Start: 07-29-2022 End: 07-30-[address] ANAND LOPEZ . 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 [facility] Start: 07-05-2022 Encounter for preprocedural laboratory examination DR ANAND LOPEZ . [facility] Start: 07-02-2022 End: 07-03-[address] ANAND LOPEZ . Facility:[facility] Start: 06-29-2022 End: 06-30-[address] ANAND LOPEZ . Facility:[facility] Start: 06-29-2022 End: 06-30-2022 Encounter for preprocedural cardiovascular examination DR ANAND LOPEZ . Facility:[facility] Start: 06-22-2022 End: 06-23-2022 ambulatory Anand LOPEZ Facility:[facility] Start: 06-20-2022 End: 06-21-[address] ANAND LOPEZ . 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 OPERATOR KAMILLA LORIEZ Facility:[facility] Start: 12-22-2021 End: 12-22-2021 ambulatory SHAIKH Meghana NEWTON Facility:[facility] Start: 08-15-2021 End: 08-15-2021 Admission to same day surgery center DO Luis M Juarez Work Phone: [facility] Start: 08-13-2021 End: 08-13-2021 Patient encounter procedure DO Luis M Juarez Work Phone: [facility] Procedures Date Procedure Procedure Detail Performing Clinician Start: 09-30-2022 Esophagogastroduodenoscopy Start: 08-31-2022 Radionuclide gastric emptying study Start: 08-13-2022 Rigid cystoscopy Anand PATI Start: 07-27-2022 MRI of head Start: 07-02-2022 Extracorporeal shockwave lithotripsy of calculus of kidney Anand PATI Start: 06-16-2022 Mammography Zonia Pak DPM Work Phone: Start: 08-15-2021 Esophagogastroduodenoscopy DO Luis M nunes Work Phone: Start: 08-15-2021 Colonoscopy Zonia Pak DPM Work Phone: Start: 01-02-2020 Microscopic observation [Identifier] in Cervix by Cyto stain Zonia Pak DPM Work Phone: Cholecystectomy Rose Raisa jasper Hysterectomy Rose Klineanupama el Plan of Treatment Date Care Activity Detail Author Start: 08-16-2031 Screening for malignant neoplasm of colon [facility] Start: 06-17-2023 Screening for malignant neoplasm of breast Mammogram [facility] Start: 05-17-2023 End: 05-17-2023 Patient encounter procedure 05/17/2023 7:00 PM EST [facility] [address] [place] [phone] Kamilla Patton NP [address] [place] [address] [facility] Start: 04-29-2023 End: 04-29-2023 Patient encounter procedure 04/29/2023 6:00 PM EST Office Visit [facility] [address] [place] [phone] Kamilla Patton, KAYLAH [address] [place] [address] [facility] Start: 01-01-2023 Screening for malignant neoplasm of cervix Pap Smear [facility] Start: 09-30-2022 [facility] Start: 07-27-2022 MR Unspecified body region [facility] Start: 07-27-2022 MRI of head MR head/brain wo/w con [facility] Start: 2001 Screening for malignant neoplasm of cervix HPV/Cotest [facility] Start: 1971 Screening for malignant neoplasm of colon [facility] Bilirubin measurement [facility] Body weight [facility] Calcium carbonate/To mirna in [facility] Calcium hydrogen shruti sphate dihydrate/Total in [facility] Calcium oxalate monohydrate/Total in [facility] Calcium phosphate level [facility] Calculus analysis wi th calculus photography [Interpretation] in [facility] Calculus analysis, qualitative [facility] Calculus analysis, quantitative [facility] Calculus analysis, quantitative, infrared spectroscopy [facility] Cellular material [Mass/mass] of Stone by Estimated [facility] Cholesterol [Mass/vo lume] in Serum or Plasma [facility] Cystine measurement [facility] Determination of annie culus chemical composition [facility] Evaluation procedure [facility] Hydroxyapatite [Ener gy Difference] in 24 hour Urine [facility] Laboratory data interpretation [facility] Newberyite/Total in [facility] Patient Education Esophagitis Hi atal Hernia (DC) Stomach polyps [facility] Work Phone: Specimen source subj ect [Type] [facility] Triamterene measurement [facility] Triple phosphate/Tot al in [facility] Immunizations Immunization Date Immunization Notes Care Provider Demarcus florence 12-27-2022 influenza virus vaccine, unspecified formulation Zonia Reyes DPM Work Phone: [facility] 10-09-2021 SARS-CoV-2 mRNA (pylrbatbiqa-ntln-zkck ose) vaccine Rose Windnagel [facility] 02-13-2021 COVID-19 mRNA, Comirnaty (Pfizer) DO Luis M [employer] Work Phone: [facility] 05-08-2020 COVID-19 mRNA, Comirnaty (Pfizer) DO Luis M [employer] Work Phone: [facility] Comment on above: Result Comment: 2022: TPV40 04-06-2020 SARS-CoV-2 (COVID-19 ) mRNA BNT-162b2 vax Rose Windnagel [facility] Comment on above: Result Comment: 2022: TPV40 04-02-2020 COVID-19 mRNA, Comirnaty (Pfizer) DO Luis M [employer] Work Phone: [facility] Comment on above: Result Comment: 2022: TPV40 07-17-2009 tetanus toxoid, reduced diphtheria toxoid, and acellular pertussis vaccine, adsorbed Rose Windnagel [facility] Payers Date Payer Category Payer Self-pay [id number] 2020 Unknown [id number] 1971 Unknown [id number] 2.16.84 0.1.588430.3.579.2.593 1971 Unknown [id number] 2.16.84 0.1.079407.3.579.2.593 1971 Unknown [id number] 2.16.84 0.1.046065.3.579.2.593 1971 Unknown [id number] 2.16.84 0.1.291772.3.579.2.593 1971 Unknown [id number] 2.16.84 0.1.355523.3.579.2.593 1971 Unknown [id number] 2.16.84 0.1.669569.3.579.2.593 1971 Unknown [id number] 2.16.84 0.1.163898.3.579.2.593 1971 Unknown [id number] 2.16.84 0.1.916644.3.579.2.593 1971 Unknown [id number] 2.16.84 0.1.230812.3.579.2.593 1971 Unknown [id number] 2.16.84 0.1.648106.3.579.2.593 1971 Unknown [id number] 2.16.84 0.1.862500.3.579.2.593 1971 Unknown [id number] 2.16.8 40.1.311543.3.579.2.727 1971 Unknown [id number] 2.16.8 40.1.746336.3.579.2.727 1971 Unknown [id number] 2.16.8 40.1.336855.3.579.2.727 1971 Unknown [id number] 2.16.8 40.1.306932.3.579.2.727 1971 Unknown [id number] 2.16.8 40.1.778891.3.579.2.727 1971 Unknown [id number] 2.16.8 40.1.133609.3.579.2.727 1971 Unknown [id number] 2.16.8 40.1.540907.3.579.2.1286 1971 Unknown [id number] 2.16. 840.1.893798.3.579.2.196 1971 Unknown [id number] 2.16. 840.1.349351.3.579.2.196 1971 Unknown [id number] 2.16.84 0.1.928775.3.579.2.1259 1971 Unknown [id number] 2.16.84 0.1.418794.3.579.2.1259 1971 Unknown [id number] 2.16.84 0.1.652944.3.579.2.1259 1971 Unknown [id number] 2.16.840 .1.996666.3.579.2.1259 1959 Unknown [id number] Unknown [id number] 2.16.8 40.1.671193.3.579.2.531 Unknown [id number] 2.16.8 40.1.799699.3.579.2.531 Unknown [id number] 2.16.8 40.1.948801.3.579.2.531 Unknown [id number] 2.16.8 40.1.512545.3.579.2.531 Social History Date Type Detail Facility [facility] if ever smoked [facility] Work Phone: Start: 1970 Sex Assigned At Female [facility] Start: 06-22-2022 End: 04-20-2023 Tobacco smoking status Never smoked tobacco (finding) [facility] Tobacco smoking status Never [facility] Start: 03-17-2023 End: 04-20-2023 Sex Assigned At Female [facility] Start: 04-20-2023 Tobacco use and exposure Smokeless [...] 12-28-2022 Functional Status N/A [facility] Clinical Notes 08-15-2021 to 04-20-2023 Zonia [...] KNEE ARTHROSCOPY W/ DEBRIDEMENT Right 1990 x2, 2009 OVARY SURGERY 1991 Ovarian Resection - [place] Family History Family History Problem Relation Name [...] Zonia Pak DPM documented in this encounter [facility] 12-28-2022 Hospital Discharge instructions Patient Education [...] include: ?8 oz (237 mL) of milk, sjcsjhn-swyacnmdlzvf-yymvr milk, and calcium-fortifiedfruit juice. Calcium-fortified means that [...] ?Spinach (cooked), rhubarb, beets, sweet potatoes, and Indian chard. ?Peanuts. ?Potato chips, north korean fries, and baked potatoes with skin on. ?Nuts and nut products. ?Chocolate. If you regularly take a diuretic medicine, make sure to eat at least 1 or 2 servings of fruits or vegetables that are high in potassium each day. These include: ?Avocado. ?Banana. ?Stanton, prune, carrot, or tomato juice. ?Baked potato. [...] magnesium, fish oil, or vitamin B6. Take rukb-tjv-nientfm and prescription medicines only as told by [...] Casseroles. Pizza. Lasagna. Frozen meals. Potato chips. Syrian fries. The items listed above may not [...] provider. Document Revised: 11/10/2021 Document Reviewed: 11/10/2021 [employer] Patient Education 2022 [employer]. Follow Up Care 07/07/2022 08:32:51 With:PATI DOHERTY, Anand Fonseca, URL Address: [facility] [address] , [place] [address]- When:Within 1 Year(s) Comments:w/KUB [facility] 09-30-2022 Procedure note [facility] 06-22-2022 Note Chief Complaint Referral *Kidney [...] When Contact Information PATI DOHERTY, Anand Fonseca, [facility] [address], [place] [address]- Additional Instructions: schedule L ESWL Patient Education [...] Once a day (at bedtime) multivitamin, Daily Shelby-3 oral capsule Pantoprazole [address] Tab traZODONE 50 mg Tab Viactiv Soft Calcium Chews Vitamin C, Daily Allergies penicillin (Unknown) Social History Tobacco Never (less than 10 (more content not included)... [facility] Comment on above: Result Comment: Elec tronically Signed By: Anand LOPEZ MD\.br\Date and Time Signed: 06/22/22 14:41 EDT\.br\Electronically Co-Signed By: Caroline Morales\.br\Date and Time Co-Signed: 06/22/22 14:38 EDT 08-15-2021 History and physi annie note Note Date/Time August 15, 2021 8:18a m [facility] [address] [place] [address] Gastroenterology H&P Signed Patient: Cinthia Badillo MR#: [id number] : 1970 Acct:[id number] Age/Sex: 51 / F Adm Date: 2 Loc: Room: Type: [facility] Attending Dr: Luis M Juarez DO [...] Luis M Juarez Jr, DO> 08/15/21 0825 [facility] Work Phone: 1(722) 714-270806-03-2022 [facility] Future Appointments Appointment Date:12/28/2022 02:45:00 PM Scheduled Provider:Anand LOPEZ MD Location:[facility] App[facility]URO [facility] Future Appointments Appointment Date:01/07/2024 08:00:00 AM Scheduled Provider:Anand LOPEZ MD Location:[facility] Appointment Type:URO Office Visit [facility] evaluation note* Diagnosis Onset Date Resolution Status GERD (gastroesophageal reflux disease) acute Screening for colorectal cancer acute [facility] Work Phone: evaluation noteNo assessment information available [facility] Work Phone: evaluation note* Diagnosis Onychomycosis- Primary Dermatophytosis of nail Nail dystrophy Other specified disease of nail Pain in toes of both feet documented in this encounter [facility] HealthcareEvaluation note* Diagnosis Gastroesophageal reflux disease without esophagitis Esophageal reflux documented in this encounter [facility] and physical note Author Juani Blackwell [facility] September 30, 2022 8:25am Note Date/Time September 30, 2022 8:25 am [facility] [address] [place], [place] [id number] Gastroenterology H&P Signed Patient: Cinthia Badillo MR#: [id number] : 1970 Acct:[id number] Age/Sex: 52 / F Adm Date: 3 Loc: Room: Type: [facility] Attending Dr: Juani Blackwell MD Copies [...] <Electronically signed by Juani Blackwell MD> 09/30/22824 [facility] Work Phone: Hospital course Narrative No data available for this section [facility] Discharge instructions No data available for this section [facility] Discharge instructions Additional Instructions DISCHARGE INSTRUCTIONS FOR [...] problems. -Follow up with PCP. -Office number [phone]. 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 Relationship Specialty Start Date End Date Nishant Aguilar MD [address] [place] [phone] PCP - General Family Medicine 03/10/23 Kamilla Patton NP [address] [place] [phone] Nurse Practitioner Family Medicine 03/10/23 Stamping Operator Relationship Specialty Start Date End Date Nishant Aguilar MD [address] [place] [phone] PCP - General Family Medicine 03/10/23 Kamilla Patton NP [address] [place] [phone] Nurse Practitioner Family Medicine 03/10/23 Goals (unrecognized section and content) Goals may be documented in a n alternate sectionGoals may be documented in an alternate section No data available for this sectionGoals may be documented in an alternate section No data available for this section No data available for this section INFORMATION SOURCE (unrecogn ized section and content) DATE CREATED AUTHOR 08/24/2022 [facility] DATE CREATED AUTHOR AUTHOR'S ORGANIZ ATION 10/02/2022 [facility] DATE CREATED AUTHOR AUTHOR'S ORGANIZ ATION 02/15/2023 [facility] DATE CREATED AUTHOR AUTHOR'S ORGANIZ ATION 04/18/2023 [facility] DATE CREATED AUTHOR AUTHOR'S ORGANIZ ATION 06/05/2023 [facility] DATE CREATED AUTHOR AUTHOR'S ORGANIZ ATION 07/05/2023 [facility] Reason for Visit (unrecogniz ed section and [...] BE BASED ON THE PRIMARY CLINICAL RECORDS. [employer] provides no warranty or guarantee of the accuracy or completeness of information in this document.
--- NOTE | 2023-07-07 17:05 | PM.STRESS ---
Stress Test Stress Test Allergies Allergy/AdvReac Type Severity Reaction Status Date / Time Penicillins AdvReac Severe Verified 06/29/23 17:54 Requesting physician: Shaikh Rere Procedure: Exercise stress test General Information: Reason for Stress Test: Chest pain Cardiac History and Risk Factors: No personal history. Father had ID. Resting 12 - Lead Electrocardiogram: Rate & rhythm: Normal sinus at a rate of 86. Blandon: Normal T-waves: Normal ST-segments: Normal Stress Test: Protocol: Alonso protocol was followed Exercise capacity: Good exercise capacity. Total exercise time of 8 minutes reached Alonso stage 3 at 3.4MPH, 14% grade, & 10.1 METs. Blood pressure: Initial: 126/64, Maximum: 146/92 Rate & rhythm: Patient remained in sinus rhythm during the exercise and recovery portions of the study.? The maximum heart rate was 162, which was 96% of the maximum predicted heart rate. ST-segments & T-waves: There were no T-wave changes or ST-segment changes when compared to the baseline EKG. Patient response/symptoms: There were no symptoms similar to the chief complaint. Interpretation: Normal exercise stress test without electrocardiographical evidence of ischemia. Asymptomatic of chief complaint. Henry treadmill score is 8, which places patient in a low risk category. Clinical correlation required.
== END 2023-07-07 07:20 | disposition home or self-care (01) ==
LOC: CARD 07:20
PROVIDERS: PCP Nurse Practitioner; Visit Provider Internal Medicine
DX: R07.89 Other chest pain (principal)
CPT/HCPCS: 93017

== ENCOUNTER 2024-01-15 12:26 | Outpatient (OUT) | payer BC, SELFPAY ==
--- NOTE | 2024-01-15 | XR_ITS ---
The [address] [address] Patient Name: MICHELLE BADILLO MRN: [id number] date: 1970 Sex: F Assigned Patient Location: [facility] Current Patient Location: Accession/Order Number: [id number] Exam Date: 01/15/2024 12:40 Report Date: 01/16/2024 07:15 At the request of: ANAND KRUEGER Procedure: XR abdomen 1V EXAMINATION: XR abdomen 1V HISTORY: kidney stone 20.0 COMPARISON: XR abdomen 12/26/2022 FINDINGS: KIDNEY/URETER - RIGHT: No visible renal or ureteral calcifications. KIDNEY/URETER - LEFT: Tiny calcification projecting over inferior pole of kidney. PELVIS: No visible ureteral stones. Stable pelvic calcifications favoring phleboliths. BOWEL: Large amount of stool throughout the colon. No abnormal bowel dilation. BONES: No acute abnormality. OTHER: Negative. No abnormal gaseous collections. XR/XR abdomen 1V IMPRESSION: 1. Suspect left nephrolithiasis. Electronically authenticated by: JERICA HOOPER Date: 01/16/2024 07:15
--- OUTSIDE RECORDS SUMMARY | 2024-01-15 12:30 | XMS_ITS | CCD ---
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 Name Role Phone DO Larry Luis M Montano Attending Provider NON STAFF Primary Care Provider Unavaildina e NON STAFF Primary Care Provider Unavaildina e TISHA Jenkins- Mohsen Attending Provider MD Anand Lopez Attending Provider [phone] AICHHOLZ, KAMILLA J Primary Care Physician [phone] PATI ., [address] MICHEL Attending Unavailable LOPEZ ., DR MICHEL Consulting Unavailable AICHHOLZ, CLOTHES DRIER ASSEMBLER KAMILLA Primary Care Unavailable LOPEZ ., DR MICHEL Admitting Unavailable GALVEZ, IZZY Consulting Unavailable LOPEZ ., DR MICHEL Consulting Unavailable AICHHOLZ, CLOTHES DRIER ASSEMBLER KAMILLA Primary Care Unavailable LOPEZ ., DR MICHEL Admitting Unavailable LOPEZ ., DR MICHEL Attending Unavailable ZIFÁTIMA, DR JERICA Fonseca Consulting Unavailable VICTORINO, KYLE Consulting Unavailable MARY ANN II, GEOVANNI Consulting Unavailable LOPEZ ., DR MICHEL Attending Unavailable AICHHOLZ, CLOTHES DRIER ASSEMBLER KAMILLA Primary Care Unavailable LOPEZ ., DR MICHEL Admitting Unavailable AICHHOLZ, CLOTHES DRIER ASSEMBLER KAMILLA Admitting Unavailable AICHHOLZ, CLOTHES DRIER ASSEMBLER KAMILLA Attending Unavailable AICHHOLZ, CLOTHES DRIER ASSEMBLER KAMILLA Consulting Unavailable AICHHOLZ, CLOTHES DRIER ASSEMBLER KAMILLA Primary Care Unavailable ZIEBBETI, DR JERICA Fonseca Consulting Unavailable AICHHOLZ, CLOTHES DRIER ASSEMBLER KAMILLA Admitting Unavailable AICHHOLZ, CLOTHES DRIER ASSEMBLER KAMILLA Attending Unavailable AICHHOLZ, CLOTHES DRIER ASSEMBLER KAMILLA Consulting Unavailable AICHHOLZ, CLOTHES DRIER ASSEMBLER KAMILLA Primary Care Unavailable FAWWAD, STEELE H Admitting Unavailable FAWWAD, STEELE H Attending Unavailable FAWWAD, STEELE H Consulting Unavailable AICHHOLZ, CLOTHES DRIER ASSEMBLER KAMILLA Primary Care Unavailable LOPEZ ., DR MICHEL Attending Unavailable LOPEZ ., DR MICHEL Consulting Unavailable AICHHOLZ, CLOTHES DRIER ASSEMBLER KAMILLA Primary Care Unavailable LOPEZ ., DR MICHEL Admitting Unavailable ZIEBER, DR JERICA Fonseca Consulting Unavailable AICHHOLZ, CLOTHES DRIER ASSEMBLER KAMILLA Primary Care Unavailable AICHHOLZ, CLOTHES DRIER ASSEMBLER KAMILLA Admitting Unavailable AICHHOLZ, CLOTHES DRIER ASSEMBLER KAMILLA Attending Unavailable AICHHOLZ, CLOTHES DRIER ASSEMBLER KAMILLA Consulting Unavailable LOPEZ ., DR MICHEL Admitting Unavailable LOPEZ ., DR MICHEL Consulting Unavailable AICHHOLZ, CLOTHES DRIER ASSEMBLER KAMILLA Primary Care Unavailable LOPEZ ., DR MICHEL Attending Unavailable WEST, DR LUIS M Bustos Consulting Unavailable AICHHOLZ, CLOTHES DRIER ASSEMBLER KAMILLA Primary Care Unavailable WEST, DR LUIS M Bustos Consulting Unavailable AICHHOLZ, CLOTHES DRIER ASSEMBLER KAMILLA Admitting Unavailable AICHHOLZ, CLOTHES DRIER ASSEMBLER KAMILLA Attending Unavailable AICHHOLZ, CLOTHES DRIER ASSEMBLER KAMILLA Consulting Unavailable LOPEZ ., DR MICHEL Consulting Unavailable AICHHOLZ, CLOTHES DRIER ASSEMBLER KAMILLA Primary Care Unavailable LOPEZ ., DR MICHEL Admitting Unavailable LOPEZ ., DR MICHEL Attending Unavailable NO FAMILY, PHYSICIAN Primary Care Provider Unava ilable MD Rishi Imad Attending Provider Mohsen Jenkins Admitting Unavailable Mohsen Jenkins Attending Unavailable NON STAFF Primary Care Unavailable Anand Lopez Admitting Unavailable Anand Lopez Attending Unavailable NO FAMILY, PHYSICIAN Primary Care Unavailable Asaad, Imad Attending Unavailable NO FAMILY, PHYSICIAN Primary Care Unavailable Asaad, Imad Admitting Unavailable Asaad, Imad Attending Unavailable Aichholz, Kamilla J Primary Care Unavailable Asaad, Imad Admitting Unavailable Aichholz, Kamilla J Primary Care Provider ISABELLE BARRIOS Referring Unavailable ISABELLE BARRIOS Primary Care Unavailable Aichholz LEATHERSMITH, Kamilla Unavailable Nishant Aguilar MD Primary Care Provider [phone] James FU, Kristine Patten Attending Phyllis vailable Aichholz ADOPTION SPECIALIST-CLOTHES DRIER ASSEMBLER, Kamilla Humera Primary Care Unava ilable James FU, Kristine Patten Attending Phyllis vailable Aichholz ADOPTION SPECIALIST-CLOTHES DRIER ASSEMBLER, Kamilla Humera Primary Care Unava ilable James FU, Kristine Patten Attending Phyllis vailable Aichholz, Kamilla Unavailable Unavailable AICHHOLZ, KAMILLA HUMERA Referring Unavailable MENDEZ LUND Attending Unavailable AICHHOLZ, KAMILLA Attending Unavailable ZONIA PAK Attending Unavailable AICHHOLZ, KAMILLA Attending Unavailable AICHHOLZ, KAMILLA Attending Unavailable AICHHOLZ, KAMILLA Attending Unavailable WINDNAGEL, MOHSEN C Attending Unavailable AICHHOLZ, KAMILLA Attending Unavailable Aichholz LEATHERSMITH, Kamilla Unavailable Nishant Aguilar MD Primary Care Provider Jerica Zhu MD Unavailable Sena Carias Attending Unavailable WINDNAGEL, MOHSEN Admitting Unavailable WINDNAGEL, MOHSEN Attending Unavailable WINDNAGEL, MOHSEN Referring Unavailable Allergies Allergy Classification Reported Allergen(s) Allergy Type Date of Onset Reaction(s) Facility (14 sources) Penicillins; Translations: [Penicillins] Allergy to substance 07-14-2017 [facility] (5 sources) Penicillin; Translations: [penicillin] Drug Allergy Unknown [facility] Medications Current Medications Medication Drug Class(es) Dates Sig (Normalized) Sig (Original) Acidophilus Probiotic Blend (3 sources) Start: 06-22-2022 Acidophilus Probiotic Blend Oral, Daily, Refill(s) 0 Start Date: 06/22/22 Status: Ordered amitriptyline hydrochloride 50 mg oral tablet (17 sources) Tricyclic Antidepressant Start: 11-10-2023 End: 11-09-2024 take 1 tablet by mouth at bedtime amitriptyline (Elavil) 50 MG tablet Indications: Trigeminal neuralgia (CMS/HCC) , Nonintractable headache, unspecified chronicity pattern, unspecified headache type Take 1 tablet (50 mg) by mouth at bedtime 90 tablet 3 11/10/2023 11/09/2024 Active Start: 09-28-2022 take 25 mg by mouth once daily Amitriptyline Active 25 MG PO Daily September 28, 2022 12:00am Start: 08-15-2021 End: 09-28-2022 take 10 mg by mouth once daily Amitriptyline Discontin ued 10 MG PO Daily August 15, 2021 12:00am September 28, 2022 1:19pm Ascorbic Acid (3 sources) Vitamin C Start: 06-22-2022 Vitamin C Daily, Refills(s) 0 Start Date: 06/22/22 Status: Ordered Cranberry preparation (3 sources) Non-Standardized Food Allergenic Extract, Non-Standardized Plant Allergenic Extract Start: 06-22-2022 Cranberry Refill(s) 0 Start Date: 06/22/22 Status: Ordered esomeprazole 40 mg delayed release oral capsule (1 source) Proton Pump Inhibitor Start: 10-22-2023 take 1 capsule by mouth twice daily before breakfast esomeprazole (NEXIUM) 40 mg capsule Take 1 capsule by mouth two times a day before meals. Take 30 min before breakfast and dinner 180 capsule 3 10/22/2023 Active Melatonin (3 sources) Start: 06-22-2022 Melatonin Once a day (at bedtime), Refills(s) 0 Start Date: 06/22/22 Status: Ordered Multivitamin preparation (3 sources) Start: 06-22-2022 multivitamin Daily, Refill(s) 0 Start Date: 06/22/22 Status: Ordered [place]-3 oral capsule (3 sources) Start: 06-22-2022 [place]-3 oral capsule Refill(s) 0 Start Date: 06/22/22 Status: Ordered pantoprazole 40 mg delayed release oral tablet (19 sources) Proton Pump Inhibitor Start: 09-20-2023 take 1 tablet by mouth in the morning pantoprazole (ProtoNix) 40 MG EC tablet Indications: Gastroesophageal reflux disease without esophagitis Take 1 tablet (40 mg) by mouth in the morning and 1 tablet (40 mg) before bedtime. Take 40 mg by mouth in the morning and 40 mg before bedtime.. 60 tablet 2 09/20/2023 Active Start: 07-07-2023 take 40 mg by mouth twice daily Pantoprazole Active 40 MG PO Twice daily 60 July 07, 2023 12:00am Start: 09-28-2022 End: 07-07-2023 take 1 tablet by mouth in the morning pantoprazole (ProtoNix) 20 MG EC tablet Indications: Gastroesophageal reflux disease without esophagitis Take 1 tablet (20 mg) by mouth in the morning and 1 tablet (20 mg) before bedtime. 60 tablet 1 04/28/2023 05/28/2023 Active Start: 08-15-2021 End: 09-28-2022 take 40 mg by mouth once daily Pantoprazole Discontinued 40 MG PO Daily August 15, 2021 12:00am September 28, 2022 1:20pm terbinafine 250 mg oral tablet (2 sources) [...] Status: Ordered zonisamide 50 mg oral capsule (16 sources) Anti-epileptic Agent Start: 11-10-2023 take 1 capsule by mouth twice daily zonisamide (Zonegran) 25 MG capsule Indications: Nonintractable headache, unspecified chronicity pattern, unspecified headache type TAKE 1 CAPSULE BY MOUTH TWICE DAILY WITH 50 MG CAPS TO EQUAL 75 MG 180 capsule 3 11/10/2023 Active Start: 11-10-2023 End: 11-09-2024 take 1 capsule by mouth in the morning zonisamide (Zonegran) 50 MG capsule Indications: Trigeminal neuralgia (CMS/HCC) Take 1 capsule (50 mg) by mouth in the morning and 1 capsule (50 mg) before bedtime. 180 capsule 3 11/10/2023 11/09/2024 Active Start: 12-12-2022 take 1 capsule by mo uth in the morning zonisamide (Zonegran) 50 MG capsule Take 50 mg by mouth in the morning and 50 mg before bedtime. 0 12/12/2022 Active Start: 11-23-2022 take 1 capsule by mo uth twice daily zonisamide (Zonegran) 25 MG capsule TAKE 1 CAPSULE BY MOUTH TWICE DAILY WITH 50 MG CAPS TO EQUAL 75 MG 0 11/23/2022 Active Start: 09-28-2022 take 50 mg by mouth twice imelda y Zonisamide Active 50 MG PO Twice daily September 28, 2022 12:00am Completed/Discontinued Medications Medication Drug Class(es) Dates Sig (Normalized) Sig (Original) famotidine 20 mg oral tablet (6 sources) Histamine-2 Receptor Antagonist Start: 09-20-2023 End: 12-27-2023 take 1 tablet by mouth at bedtime famotidine (Pepcid) 20 MG tablet Indications: Gastroesophageal reflux disease without esophagitis Take 1 tablet (20 mg) by mouth at bedtime 30 tablet 2 09/20/2023 12/27/2023 Discontinued (Therapy completed) Start: 07-07-2023 take 20 mg by mouth once daily at bedtime Famotidine Active 20 MG PO Daily at bedtime 30 July 07, 2023 12:00am Start: 12-28-2022 famotidine 20 mg Tab Refills(s) 0 Start Date: 12/28/22 Status: Ordered Problems Active Problems Problem Classification Problem Date Documented Date Episodic/Chronic Abdominal pain (8 sources) Left flank pain; Translations: [Unspecified abdominal pain] Onset: 06-03-2022 06-22-2022 Episodic Asthma (4 sources) Asthma; Translations: [Unspecified asthma, uncomplicated] Onset: 08-10-2022 06-22-2022 Chronic Biliary tract disease (3 sources) Gallstone 06-22-2022 Episodic Calculus of urinary tract (10 sources) Kidney stone; Translations: [Calculus of kidney] Onset: 07-29-2022 06-22-2022 Episodic Esophageal disorders (20 sources) Gastroesophageal reflux disease; Translations: [Gastro-esophageal reflux disease without esophagitis] Onset: 09-29-2017 08-15-2021 Chronic Esophageal disorders (1 source) Esophageal disorders; Translations: [Gastro-esophageal reflux disease without esophagitis] Onset: 08-31-2022 Headache; including migraine (3 sources) Migraine without aura, not refractory ; Translations: [Migraine without aura, not intractable, without status migrainosus] Onset: 11-04-2023 11-04-2023 Chronic Mycoses (2 sources) Onychomycosis; Translations: [Tinea unguium] 04-20-2023 Episodic Osteoarthritis (4 sources) Arthritis; Translations: [Unspecified [...] [PARESTHESIA OF SKIN] Onset: 07-08-2022 Episodic Other nervous system disorders (3 sources) Paresthesia; Translations: [Paresthesia of skin] Onset: 11-04-2023 11-04-2023 Episodic Other nutritional; endocrine; and metabolic disorders (11 sources) Body mass index 30+ - obesity; Translations: [Body mass index (BMI) 32.0-32.9, adult] Onset: 03-18-2023 Resolved: 05-17-2023 03-18-2023 Chronic Other skin disorders (2 sources) Dystrophia unguium; Translations: [Nail dystrophy] 04-20-2023 Episodic Pulmonary heart disease (5 sources) Pulmonary hypertension; Translations: [Pulmonary hypertension, unspecified] Onset: 07-05-2023 12-27-2023 Chronic Residual codes; unclassified (1 source) Idiopathic sleep related nonobstructive alveolar hypoventilation; Translations: [Idiopathic sleep related nonobstructive alveolar hypoventilation] Onset: 04-06-2023 Chronic Residual codes; unclassified (6 sources) Hypoxia; Translations: [Idiopathic sleep related nonobstructive alveolar hypoventilation] Onset: 07-19-2023 07-19-2023 Chronic Residual codes; unclassified (3 sources) Hypersomnia; Translations: [Hypersomnia, unspecified] Onset: 11-04-2023 11-04-2023 Chronic Residual codes; unclassified (1 source) Family history of malignant neoplasm of breast; Translations: [FAMILY HX MALIG NEOPLASM OF BREAST] Onset: 06-20-2022 Episodic Residual codes; unclassified (3 sources) Disturbance in sleep behavior; Translations: [Sleep disorder, unspecified] Onset: 11-04-2023 11-04-2023 Episodic Unclassified (3 sources) CONTACT W/AND (SUSP) EXPOS COVID-19; Translations: [CONTACT W/AND (SUSP) EXPOS COVID-19] Onset: 12-25-2021 Past or Other Problems Problem Classification Problem Date Documented Da te Episodic/Chronic Nonspecific chest pain (4 sources) Chest pain, unspecified; Translations: [Chest pain] Onset: 07-12-2022 07-05-2023 Episodic Other screening for suspected conditions (not mental disorders or infectious disease) (14 sources) Patient encounter status; Translations: [Encounter for screening for malignant neoplasm of colon] Onset: 06-16-2022 08-15-2021 Episodic Other upper respiratory infections (1 source) Acute upper respiratory infection, unspecified; Translations: [ACUTE UP RESPIRATORY INFECTION UNS] Onset: 12-25-2021 Episodic Pancreatic disorders (not diabetes) (6 sources) Pancreatitis; Translations: [Acute pancreatitis without necrosis or infection, unspecified] Onset: 09-26-2017 Resolved: 05-17-2023 12-18-2022 Episodic Unclassified (1 source) CONTACT W/AND (SUSP) EXPOS COVID-19; Translations: [CONTACT W/AND (SUSP) EXPOS COVID-19] Onset: 12-22-2021 Results Test Name Value Interpretation Reference Range Facility Provider Letteron 11-29-2023 Provider Letter Provider Letter November 29, 2023 CINTHIA BADILLO [address] [place] [address] : 1970 Dear Cinthia, We have been trying to reach you with no success. You have an appointment with Dr. Anand Lopez on 01/07/2024 which will need to be rescheduled since he will be out of the office that day. Please contact the office at the number listed below to get this appointment rescheduled at your earliest convenience. Thank you for your prompt attention to this matter. Sincerely, [facility] [address], [place] [address] [facility] Gynecology Office/Clinic Not olgan 08-02-2023 Gynecology Office/Clinic Note Chief Complaint Annual History of Present Illness Pelvic Pain: No Painful Sex: No Abnormal Vaginal Discharge: No Abnormal Vaginal Bleeding: No Vaginal Dryness: No Vaginal Itch: No Vaginal Burning: No Vaginal Odor: No Hot Flashes: Yes Night Sweats: No Breast Lump: No Breast Pain: No Contraception Type: None Menstrual Periods: No Age of Menopause: 50 Sexually Active: Yes Comments 07/30/23 10:37:00 53 y/o , Annual Pap: HX of robotic TLH and BS. Mammogram: 03/30/22 Benign. Will schedule Colonoscopy: 2021 repeat every 10 years. BD: na Labs: PCP Marcia Cabrera CLOTHES DRIER ASSEMBLER Neuro: Dr Stubbs Trigeminal neuralgia GI: has had 2 EGDs, GERD HF better since taking Pam and symptoms much improved. Review of Systems Head Headaches: No Migraines: Yes Eyes Blurred vision: Contact lenses Corrective lenses: Glasses ENT Congestion: No Nasal drainage: No Sore throat: No Vertigo: No Cardio Respiratory Heart Irregularity: No Peripheral edema: No Shortness of Breath: No Gastrointestinal Abdominal Pain: No Bloating: No Change in bowel habits: No Reflux/heartburn: Yes Urinary Nocturia: No Painful urination: No Urgency: No Urinary frequency: No Urinary Incontinence: No Musculoskeletal Back pain: No Joint pain: No Muscle aches: No Integumentary Acne: No Hair changes: No Lesions: No Moles: No Psycho Social Anxiety: No Depression: No Homicidal Ideation: No Sleep Problems: Yes Suicidal Ideation: No Hematologic/Lymphatic Bleeding tendencies: No Bruising: No Lymphadenopathy: No Thromboembolism: No Endocrine Abnormal weight gain: Yes Abnormal weight loss: No Fatigue: No Physical Exam Vitals & Measurements BP: 116/72 HT: 170 cm WT: 96.3 kg WT: 96.3 kg (Dosing) BMI: 33.32 General: Alert and oriented, obese, no acute distress. Eye: PERRL, EOMI, normal conjunctiva. HEENT:Normocephalic, clear tympanic membranes, normal hearing, moist oral mucosa, no scleral icterus, no sinus tenderness. Neck: Supple, non-tender, no carotid bruits, no JVD, no lymphadenopathy. Lungs: Clear to auscultation and percussion, non-labored respiration. Heart: Normal rate, regular rhythm, no murmur, gallop or edema. Abdomen: Soft, non-tender, non-distended, normal bowel sounds, no masses. Musculoskeletal: Normal range of motion and strength, no tenderness or swelling. Skin: Skin is warm, dry and pink, no rashes or lesions. Neurologic: Awake, alert, and oriented X3, CN II-XII intact. Psychiatric: Cooperative, appropriate mood and affect. Breast exam: No fibrocystic changes noted bilaterally, no masses, tenderness, skin changes or nipple discharge. External Genitalia: Normal urethral meatus, no lesions, vulvar skin intact. Genitourinary: Normal vaginal mucosa, no lesions or abnormal discharge, cervix surgically absent, no bleeding. No cystocele or rectocele. Bimanual exam: Absent uterus-s/p TLH BS. No adnexal tenderness or masses. Additional Vitals No qualifying data available. Assessment/Plan 1. Encounter for gynecological examination Annual exam 1. Continue with breast self-exam/mammogram/colonos copy screening 2. Maintain a low-fat, low sugar diet 3. Weight management, BMI, exercise (30 minutes daily) 4. Water intake (64 oz daily) and decrease caffeine 5. Calcium supplement with Vitamin D 6. Discussed menopausal symptom management-doing well on supplements F/u 1 year for annual exam and she will call with any questions/problems prior to next appt. Medical Decision Making Chronic conditions NOT treated during this visit that affected my overall medical decision making: Trigeminal neuralgia, GERD Treatment plans discussed but not opted for at this time: see above Prescribed medication that requires intensive monitoring for toxicity: no I have reviewed the patient?s medication list for medication interactions/contraindicati ons and/or for upcoming procedures: no Time Spent with the Patient I have personally spent 30 minutes on this date, directly related to today's patient visit, including pre and post visit work, for this date of service. Time listed does not include time spent on separately billable services. Problem List/Past Medical History Ongoing Absence of both cervix and uterus, acquired Trigeminal neuralgia Historical Encounter for gynecological examination (general) (routine) without abnormal findings Menorrhagia Menorrhagia Procedure/Surgical History gallbladder Right knee x2 Dx laparotomy-partial ooph right, appendectomy Hernia repar with mesh inguinal x2 Dx Lap, Hysteroscopy D&C (01/12/2020) Total Hysterectomy Robotic X/Xi (02/16/2020) kidney stone removed (2022) lithotripsy (2022) Medications amitriptyline 50 mg oral tablet, 50 mg= 1 tabs, Oral, HS (at bedtime) cranberry famotidine, Daily Pam, BID melatonin 3 mg oral tablet, 3 mg= 1 tabs, Oral, HS (at bedtime), PRN multivitamin, D (more content not included)... Normal [facility] Neurology Forms- Texton 12-0 Neurology Forms- Text [id number]#[id number] [facility] Consent for Treatmenton 110 Consent for Treatment [id number]#1.00TIFF Sheryl [facility] Blu 09-30-2022 L ------- Specimen: [id number] Received: 09/30/22 Status: RAYMUNDO Delgadorosalee Num: [id number] Spec Type: Surgical Subm Dr: Juani Blackwell MD Tissues: A Duodenum - Biopsy (DUODENUM BX) B GASTRIC FOR HP (GASTRIC) C Gastric Biopsy (GASTRIC POLYP) Procedures: HE/6, Gross/Micro L4/3, H PYLORI Age/ Patient Sex Location Account Attending Physician Cinthia Badillo 52/F [id number] Juani Blackwell MD SPEC NUM: [id number] RECD: 09/30/22 STATUS: RAYMUNDO MICHELLE NUM: [id number] TETE: 09/30/22- [facility] DR: Juani Blackwell MD ENTERED: 09/30/[address] [facility] [address]: SPEC TYPE: Surgical DEPT: S [...] out celiac, rule out H. pylori Specimen: [id number] Received: 09/30/22 Status: RAYMUNDO Stock Num: [id number] Spec Type: Surgical Subm Dr: Juani Blackwell MD Tissues: A Duodenum - Biopsy (DUODENUM BX) B GASTRIC FOR HP (GASTRIC) C Gastric Biopsy (GASTRIC POLYP) Procedures: HE/6, Gross/Micro L4/3, H PYLORI Patient: Cinthia Badillo [id number] (Continued) Specimen: [id number] Received: 09/30/22 (Continued) Signed (signature on file) Justo Sher MD 10/01/22 1050 Specimen: [id number] Received: 09/30/22 Status: RAYMUNDO Stock Num: [id number] Spec Type: Surgical Subm Dr: Juani Blackwell MD Tissues: A Duodenum - Biopsy (DUODENUM BX) B GASTRIC FOR HP (GASTRIC) C Gastric Biopsy (GASTRIC POLYP) Procedures: HE/6, Gross/Micro L4/3, H PYLORI Patient: Cinthia Badillo [id number] (Continued) Specimen: [id number] Received: 09/30/22 (Continued) Gross Description A. Received [...] microscopic examination confirms the diagnosis. CPT Codes 76365 x 3 Specimen: [id number] Received: 09/30/22 Status: RAYMUNDO Stock Num: [id number] Spec Type: Surgical Subm Dr: Juani Blackwell MD Tissues: A Duodenum - Biopsy (DUODENUM BX) B GASTRIC FOR HP (GASTRIC) C Gastric Biopsy (GASTRIC POLYP) Procedures: HE/6, Gross/Micro L4/3, H PYLORI Patient: Cinthia Badillo [id number] (Continued) Signed (signature on file) Justo Sher MD 10/01/22 1050 Normal [facility] NM gastric emptying studyon 08-31-2022 NM gastric emptying study [facility] [place] [address] Nuclear Medicine Report Signed Patient: Cinthia Badillo MR#: [id number] : 1970 Acct:[id number] Age/Sex: 52 / F ADM Date: 08/31/22 Loc: [place] Room: Type: [facility] Attending Dr: Juani Blackwell MD [...] Anabela Greer M.D.08/31/2022 9:37 AM Dictation Location: [place] [address] Transcribed By: [facility] 08/31/22936 Dictated By: Anabela Greer MD 08/31/2236 Signed By: 08/31/22936 Normal [facility] Ammonium urate crystals dete ction in stone by infrared spectroscopyOrdered By: Anand Lopez on 08-13-2022 Ammonium urate crystals Infrared spectroscopy Ql (Stone) N/A [facility] Calcium bilirubinate measure mentOrdered By: Anand Lopez on 08-13-2022 Calcium bilirubinate (Stone) [Mass fraction] N/A [facility] Calcium carbonate measuremen tOrdered By: Anand Lopez on 08-13-2022 Calcium carbonate (Stone) [Mass fraction] N/A [facility] Calcium hydrogen phosphate d ihydrate/Total in StoneOrdered By: Anand Lopez on 08-13-2022 Calcium hydrogen phosphate dihydrate (Stone) [Mass fraction] N/A [facility] Calcium oxalate dihydrate cr ystals detection in stone by infrared spectroscopyOrdered By: Anand Lopez on 08-13-2022 Calcium oxalate dihydrate crystals Infrared spectroscopy Ql (Stone) 10 % . [facility] Calcium oxalate monohydrate/ Total in StoneOrdered By: Anand Lopez on 08-13-2022 Calcium oxalate monohydrate (Stone) [Mass fraction] 90 % . [facility] Calcium phosphate measuremen tOrdered By: Anand Lopez on 08-13-2022 Calcium phosphate (Stone) [Mass fraction] N/A [facility] Calculi, Urinaryon Ca Oxalate Dihydrate 10 % Normal . [facility] Comment on above: Performed By: #### C ALCULI #### [facility] , Ca Oxalate Monohydrate 90 % Normal . [facility] Comment on above: Performed By: #### C ALCULI #### [facility] , Color (U) Brown Normal . [facility] Comment on above: Performed By: #### C ALCULI #### [facility] , Comment2 Normal . [facility] Comment on above: Result Comment: Calc ulus received wet. Wet calculi must be dried before analysis, which delays reporting of results. Leaving calculi wet (such as water, saline, blood, urine) may lead to changes in composition. Performed By: #### C ALCULI #### [facility] , Comment: Normal . [facility] Comment on above: Result Comment: Phys ician questions regarding Calculi Analysis contact [facility] at: [phone]. Performed By: #### C ALCULI #### [facility] , Composition Normal . [facility] Comment on above: Result Comment: Perc entage (Represents the % composition) Performed By: #### C ALCULI #### [facility] , Disclaimer: Normal . [facility] Comment on above: Result Comment: This test was developed and its performance characteristics determined by [facility]. It has not been cleared or approved by the Food and Drug Administration. Performed at: [address] [id number] Fire Equipment Operator: Mike Valladares PhD, Phone: [phone] Performed By: #### C ALCULI #### [facility] , Note Normal . [facility] Comment on above: Result Comment: Calc hannah report will follow via computer, mail or head filter press tender delivery. PERFORMED BY: [facility] [address] [place] [address] PATHOLOGIST WATCH CRYSTAL [employer]ER [place] PORTER M.D. Performed By: #### C ALCULI #### [facility] , Photo Normal . [facility] Comment on above: Result Comment: Phot ograph will follow under a separate cover Performed By: #### C ALCULI #### [facility] , Size 4x4 Normal . [facility] Comment on above: Result Comment: Mult iple pieces received. Dimensions of the largest piece reported. Performed By: #### C ALCULI #### [facility] , Source Normal . [facility] Comment on above: Result Comment: Left Kidney Performed By: #### C ALCULI #### [facility] , Weight 107 Normal . [facility] Comment on above: Performed By: #### C ALCULI #### [facility] , Calculus analysis interpreta tion in stoneOrdered By: Anand Lopez on 08-13-2022 Calculus analysis [Interp] N/A [facility] Calculus analysis [Interp] See comment . [facility] Comment on above: Calculus received we t. Wet calculi must be dried beforeanalysis, which delays reporting of results. Leaving calculiwet (such as water, saline, blood, urine) may lead tochanges in composition. Physician questions regarding Calculi [facility] at: [phone]. Calculi report will follow via computer, mail or courierdelivery. Calculus analysis with calcu sabrina photography interpretation in stoneOrdered By: Anand Lopez on 08-13-2022 Calculus analysis with calculus photography [Interp] See comment . [facility] Comment on above: Photograph will foll ow under a separate cover Cellular material measuremen t in stone by estimated (mass/mass)Ordered By: Anand Lopez on 08-13-2022 Cellular material Est (Stone) [Mass/Mass] N/A [facility] Cholesterol/Total in StoneOr dered By: Anand Lopez on 08-13-2022 Cholesterol (Stone) [Mass fraction] N/A [facility] Composition of stoneOrdered By: Anand Lopez on 08-13-2022 Composition Nom (Stone) See comment . [facility] Comment on above: Percentage (Represen ts the % composition) Cystine measurementOrdered B y: Anand Lopez on 08-13-2022 Cystine (Unsp spec) [Moles/Vol] N/A [facility] Determination of color of ca lculusOrdered By: Anand Lopez on 08-13-2022 Color (Stone) Brown . [facility] Hydroxyapatite [Energy Diffe rence] in 24 hour UrineOrdered By: Anand Lopez on 08-13-2022 Hydroxyapatite (24H U) [Energy diff] N/A [facility] Blu 08-13-2022 L ------- Specimen: [id number] Received: 08/14/22 Status: RAYMUNDO Stock Num: [id number] Spec Type: Surgical Subm Dr: Anand Lopez MD Tissues: A Urinary Calculus (LT RENAL CALCULI) Procedures: Level 1 Gross Age/ Patient Sex Location Account Attending Physician Cinthia Badillo 52/F [place] [id number] Anand Lopez MD SPEC NUM: [id number] RECD: 08/14/22 STATUS: RAYMUNDO STOCK NUM: [id number] TETE: 08/13/22- DR: Anand Lopez MD ENTERED: 08/14/[address] [facility] [address]: Saline [facility] SPEC TYPE: Surgical DEPT: S ORDERED: Level [...] chemical analysis. Gross examination only. CPT Codes 51483 Specimen: [id number] Received: 08/14/22 Status: RAYMUNDO Stock Num: [id number] Spec Type: Surgical Subm Dr: Anand Lopez MD Tissues: A Urinary Calculus (LT RENAL CALCULI) Procedures: Level 1 Gross Patient: Cinthia Badillo [id number] (Continued) Signed (signature on file) Rory Connors MD 09/04/22 1606 Normal [facility] Measurement of proportion of calculus composed of dried blood (mass/mass)Ordered By: Anand Lopez on 08-13-2022 Blood.dried (Stone) [Mass fraction] N/A [facility] Newberyite/Total in StoneOrd ered By: Anand Lopez on 08-13-2022 Newberyite (Stone) [Mass fraction] N/A [facility] No Panel InformationOrdered By: Anand Lopez on 08-13-2022 Stone 2,8 Dihydroxyadenine N/A [facility] Stone Analysis Disclaimer See comment . [facility] Comment on above: This test was develo jessica and its performance characteristicsdetermined by [employer]. It has not been cleared or approvedby the Food and Drug Administration.Performed at: [facility] [address] [id number] Director: Mike Valladares PhD, Phone: [phone] Stone Bilirubinate N/A [facility] Stone Calcium Palmitate N/A [facility] Stone Calcium Stearate N/A [facility] Stone Carbonate Apatite N/A [facility] Stone Drug or Metabolite N/A [facility] Stone Other Constituent N/A [facility] Stone Xanthine N/A [facility] Size [Entitic volume] of Sto neOrdered By: Anand Lopez on 08-13-2022 Size (Stone) [Entitic vol] 4x4 mm . [facility] Comment on above: Multiple pieces rece ived. Dimensions of the largest piecereported. Sodium urate crystals detect ion in stone by infrared spectroscopyOrdered By: Anand Lopez on 08-13-2022 Sodium urate crystals Infrared spectroscopy Ql (Stone) N/A [facility] Specimen source subject [Typ e]Ordered By: Anand Lopez on 08-13-2022 Specimen source subject Nom See comment . [facility] Comment on above: Left Kidney Triamterene measurement in c alculusOrdered By: Anand Lopez on 08-13-2022 Triamterene (Stone) [Mass fraction] N/A [facility] Triple phosphate/Total in St oneOrdered By: Anand Lopez on 08-13-2022 Triple phosphate (Stone) [Mass fraction] N/A [facility] Uric acid dihydrate crystals detection in stone by infrared spectroscopyOrdered By: Anand Lopez on 08-13-2022 Urate dihydrate crystals Infrared spectroscopy Ql (Stone) N/A [facility] CBC AUTO DIFFon 08-07-2022 BASO # 0.0 103/ul Normal 0.0-0.1 [facility] [place] Comment on above: Performed By: #### P TT, PT #### [facility] [address] [address] [address] Judy Ramirez Basophils/100 WBC (Bld) 0.5 % Normal 0.2-2.0 [facility] Comment on above: Performed By: #### P TT, PT #### [facility] [address] [address] [address] Judy Ramirez EO # 0.1 103/ul Normal 0.0-0.7 [facility] Comment on above: Performed By: #### P TT, PT #### [facility] [address] [place] [address] Dr. Judy Ramirez Eosinophils/100 WBC (Bld) 1.6 % Normal 0.9-7.0 [facility] Comment on above: Performed By: #### P TT, PT #### [facility] [address] [place] [address] Dr. Judy Ramirez Erythrocyte distribution width (RBC) [Ratio] 12.8 % Normal 11.0-15.0 [facility] Comment on above: Performed By: #### P TT, PT #### [facility] [address] [place] [address] Dr. Judy Ramirez Hematocrit (Bld) [Volume fraction] 40.7 % Normal 36.0-48.0 [facility] Comment on above: Performed By: #### P TT, PT #### [facility] [address] [place] [address] Dr. Judy Ramirez Hemoglobin (Bld) [Mass/Vol] 13.5 g/dL Normal 12.0-16.0 [facility] [place] Comment on above: Performed By: #### P TT, PT #### [facility] [address] [place] [address] Dr. Judy Ramirez IG # 0.02 10e3/ul Normal 0.00-0.03 [facility] Comment on above: Performed By: #### P TT, PT #### [facility] [address] [place] [address] Dr. Judy Ramirez IG % 0.3 % Normal 0.0-0.5 [facility] Comment on above: Performed By: #### P TT, PT #### [facility] [address] [place] [address] Dr. Judy Ramirez LYMPH # 2.6 103/ul Normal 1.2-3.8 [facility] Comment on above: Performed By: #### P TT, PT #### [facility] [address] [place] [address] Dr. Judy Ramirez Lymphocytes/100 WBC (Bld) 33.9 % Normal 20.5-60.0 [facility] Comment on above: Performed By: #### P TT, PT #### [facility] [address] [place] [address] Dr. Judy Ramirez MANUAL DIFF REQ NO Normal [facility] Comment on above: Performed By: #### P TT, PT #### [facility] [address] [place] [address] Dr. Judy Ramirez MCH (RBC) [Entitic mass] 28.5 pg Normal 26.7-34.0 [facility] Comment on above: Performed By: #### P TT, PT #### [facility] [address] [place] [address] Dr. Judy Ramirez MCHC (RBC) [Mass/Vol] 33.2 g/dL Normal 29.9-35.2 [facility] Comment on above: Performed By: #### P TT, PT #### [facility] [address] [place] [address] Dr. Judy Ramirez MCV (RBC) [Entitic vol] 86.0 fL Normal 81.0-99.0 [facility] [place] Comment on above: Performed By: #### P TT, PT #### [facility] [address] [place] [address] Dr. Judy Ramirez MONO # 0.4 103/ul Normal 0.3-0.8 [facility] [place] Comment on above: Performed By: #### P TT, PT #### [facility] [address] [place] [address] Dr. Judy Ramirez Monocytes/100 WBC (Bld) 5.6 % Normal 1.7-12.0 [facility] Comment on above: Performed By: #### P TT, PT #### [facility] [address] [place] [address] Dr. Judy Ramirez NEUT # 4.4 103/ul Normal 1.4-6.5 [facility] Comment on above: Performed By: #### P TT, PT #### [facility] [address] [place] [address] Dr. Judy Ramirez Neutrophils/100 WBC (Bld) 58.1 % Normal 43.0-75.0 [facility] Comment on above: Performed By: #### P TT, PT #### [facility] [address] [place] [address] Dr. Judy Ramirez Platelet mean volume (Bld) [Entitic vol] 9.4 fL Critically low 9.5-13.5 [facility] [place] Comment on above: Performed By: #### P TT, PT #### [facility] [address] [place] [address] Dr. Judy Ramirez PLT 285 103/ul Normal 150-450 [facility] Comment on above: Performed By: #### P TT, PT #### [facility] [address] [place] [address] Dr. Judy Ramirez RBC 4.73 106/ul Normal 4.20-5.40 [facility] [place] Comment on above: Performed By: #### P TT, PT #### [facility] [address] [place] [address] Dr. Judy Ramirez WBC 7.6 103/ul Normal 4.0-11.0 [facility] [place] Comment on above: Performed By: #### P TT, PT #### [facility] [address] [place] [address] Dr. Judy Ramirez PROF CHEM 8 (BAS METB)on Anion gap [Moles/Vol] 9.8 mmol/L Normal [facility] [place] Comment on above: Performed By: #### P TT, PT #### [facility] [address] [place] [address] Dr. Judy Ramirez Calcium [Mass/Vol] 9.3 mg/dL Normal 8.5-10.1 [facility] Comment on above: Performed By: #### P TT, PT #### [facility] [address] [place] [address] Dr. Judy Ramirez Chloride [Moles/Vol] 105 mmol/L Normal 98-107 [facility] Comment on above: Performed By: #### P TT, PT #### [facility] [address] [place] [address] Dr. Judy Ramirez CO2 [Moles/Vol] 30.4 mmol/L Normal 21.0-32.0 [facility] [place] Comment on above: Performed By: #### P TT, PT #### [facility] [address] [address] [address] Judy Ramirez Creatinine [Mass/Vol] 1.15 mg/dL Critically high 0.55-1.02 [facility] [place] Comment on above: Performed By: #### P TT, PT #### [facility] [address] [address] [address] Judy Ramirez EGFR-AF PAPUA NEW GUINEAN 60 mL/min/1.73m2 Normal >=60 [facility] Comment on above: Performed By: #### P TT, PT #### [facility] [address] [address] [address] Judy Ramirez EGFR-NON AF PAPUA [place] GUINEAN 50 mL/min/1.73m2 Critically low >=60 [facility] [place] Comment on above: Performed By: #### P TT, PT #### [facility] [address] [address] [address] Judy Ramirez Glucose [Mass/Vol] 95 mg/dL Normal 74-106 [facility] [place] Comment on above: Performed By: #### P TT, PT #### [facility] [address] [address] [address] Judy Ramirez Potassium [Moles/Vol] 4.2 mmol/L Normal 3.5-5.1 [facility] [place] Comment on above: Performed By: #### P TT, PT #### [facility] [address] [address] [address] Judy Ramirez Sodium [Moles/Vol] 141 mmol/L Normal 136-145 [facility] [place] Comment on above: Performed By: #### P TT, PT #### [facility] [address] [address] [address] Judy Ramirez Urea nitrogen [Mass/Vol] 24.0 mg/dL Critically high 7.0-18.0 [facility] [place] Comment on above: Performed By: #### P TT, PT #### [facility] [address] [address] [address] Judy Ramirez Urea nitrogen/Creatinine [Mass ratio] 20.9 mg/mg Normal [facility] Comment on above: Performed By: #### P TT, PT #### [facility] [address] [place] [address] Dr. Judy Ramirez PROTIMEon 08-07-2022 INR Coag (PPP) [Relative time] {INR} Normal [facility] Comment on above: Performed By: #### P TT, PT #### [facility] [address] [place] [address] Dr. Judy Ramirez INR GUIDELINES SEE BELOW Normal [facility] Comment on above: Result Comment: KATHLEEN RED INR: 2.0 - 3.0 CONDITIONS NOT LISTED BELOW 2.5 - 3.5 FOR PROSTHETIC HEART VALVE REPLACEMENT 2.5 - 3.5 RECURRENT THROMBOSIS Performed By: #### P TT, PT #### [facility] [address] [place] [address] Dr. Judy Ramirez PT Coag (PPP) [Time] 9.7 s Normal 9.0-11.6 [facility] Comment on above: Performed By: #### P TT, PT #### [facility] [address] [place] [address] Dr. Judy Ramirez PTTon 08-07-2022 aPTT Coag (Bld) [Time] 33.6 s Normal 22.3-36.2 [facility] Comment on above: Performed By: #### P TT, PT #### [facility] [address] [place] [address] Dr. Judy Ramirez CALCULI, URINARYon 3 2,8 Dihydroxyadenine Normal [facility] Comment on above: Performed By: #### P TT, PT #### [facility] [address] [place] [address] Dr. Judy Ramirez Ammonium Acid Urate Normal [facility] Comment on above: Performed By: #### P TT, PT #### [facility] [address] [place] [address] Dr. Judy Ramirez Bilirubin Ql (U) Normal [facility] [place] Comment on above: Performed By: #### P TT, PT #### [facility] [address] [place], [place] [id number] Dr. Judy Ramirez Ca Oxalate Dihydrate 20 % Normal [facility] [place] Comment on above: Performed By: #### P TT, PT #### [facility] [address] [address] [address] Judy Ramirez CaHPO4 (Brushite) [facility] Comment on above: Performed By: #### P TT, PT #### [facility] [address] [address] [address] Judy Ramirez Calcium Bilirubinate [facility] Comment on above: Performed By: #### P TT, PT #### [facility] [address] [place] [address] Dr. Judy Ramirez Calcium Carbonate [facility] Comment on above: Performed By: #### P TT, PT #### [facility] [address] [place] [address] Dr. Judy Ramirez Calcium Oxalate Monohydrate 80 % [facility] Comment on above: Performed By: #### P TT, PT #### [facility] [address] [place] [address] Dr. Judy Ramirez Calcium Palmitate [facility] Comment on above: Performed By: #### P TT, PT #### [facility] [address] [place] [address] Dr. Judy Ramirez Calcium Phosphate [facility] Comment on above: Performed By: #### P TT, PT #### [facility] [address] [place] [address] Dr. Judy Ramirez Calcium Stearate [facility] Comment on above: Performed By: #### P TT, PT #### [facility] [address] [place] [address] Dr. Judy Ramirez Carbonate Apatite Douglas [facility] Comment on above: Performed By: #### P TT, PT #### [facility] [address] [place] [address] Dr. Judy Ramirez Cellular Material [facility] Comment on above: Performed By: #### P TT, PT #### [facility] [address] [address] [address] Judy Ramirez Cholesterol [facility] Comment on above: Performed By: #### P TT, PT #### [facility] [address] [address] [address] Judy Ramirez Color (U) Brown [facility] Comment on above: Performed By: #### P TT, PT #### [facility] [address] [address] [address] Judy Ramirez Comment [facility] Comment on above: Performed By: #### P TT, PT #### [facility] [address] [address] [address] Judy Ramirez Comment: Comment [facility] Comment on above: Result Comment: Bhavana power questions regarding Calculi Analysis contact [facility] at: [phone]. Performed By: #### P TT, PT #### [facility] [address] [place] [address] Dr. Judy Ramirez Composition Comment [facility] Comment on above: Result Comment: Perc entage (Represents the % composition) Performed By: #### P TT, PT #### [facility] [address] [address] [address] Judy Ramirez Cystine Normal [facility] Comment on above: Performed By: #### P TT, PT #### [facility] [address] [place] [address] Dr. Judy Ramirez Disclaimer: Comment [facility] Comment on above: Result Comment: This test was developed and its performance characteristics determined by [facility]. It has not been cleared or approved by the Food and Drug Administration. Performed By: #### P TT, PT #### [facility] [address] [address] [address] Judy Ramirez Dried Blood [facility] Comment on above: Performed By: #### P TT, PT #### [facility] [address] [place] [address] Dr. Judy Ramirez Drug or Metabolite [facility] Comment on above: Performed By: #### P TT, PT #### [facility] [address] [address] [address] Judy Ramirez Hydroxyapatite [facility] Comment on above: Performed By: #### P TT, PT #### [facility] [address] [place] [address] Dr. Judy Ramirez Mg NH4 PO4 (Struvite) [facility] Comment on above: Performed By: #### P TT, PT #### [facility] [address] [place] [address] Dr. Judy Ramirez MgHPO4 (Newberyite) [facility] Comment on above: Performed By: #### P TT, PT #### [facility] [address] [place] [address] Dr. Judy Ramirez Other component(s) [facility] Comment on above: Performed By: #### P TT, PT #### [facility] [address] [place] [address] Dr. Judy Ramirez PDF . [facility] Comment on above: Performed By: #### P TT, PT #### [facility] [address] [place] [address] Dr. Judy Ramirez Photo Comment [facility] Comment on above: Result Comment: Phot ograph will follow under a separate cover Performed By: #### P TT, PT #### [facility] [address] [place] [address] Dr. Judy Ramirez Please note: Comment [facility] Comment on above: Result Comment: Calc hannah report will follow via computer, mail or head filter press tender delivery. Performed By: #### P TT, PT #### [facility] [address] [place] [address] Dr. Judy Ramirez Size 3x3 [facility] Comment on above: Result Comment: Mult iple pieces received. Dimensions of the largest piece reported. Performed By: #### P TT, PT #### [facility] [address] [place] [address] Dr. Judy Ramirez Sodium Acid Urate [facility] Comment on above: Performed By: #### P TT, PT #### [facility] [address] [address] [address] Judy Ramirez Source Comment Normal [facility] Comment on above: Result Comment: Not provided Performed By: #### P TT, PT #### [facility] [address] [place] [address] Dr. Judy Ramirez Triamterene Normal [facility] Comment on above: Performed By: #### P TT, PT #### [facility] [address] [place] [address] Dr. Judy Ramirez Uric Acid Normal [facility] Comment on above: Performed By: #### P TT, PT #### [facility] [address] [place] [address] Dr. Judy Ramirez Uric Acid Dihydrate [facility] Comment on above: Performed By: #### P TT, PT #### [facility] [address] [place] [address] Dr. Judy Ramirez Weight 47 mg [facility] Comment on above: Performed By: #### P TT, PT #### [facility] [address] [place] [address] Dr. Judy Ramirez Xanthine [facility] Comment on above: Performed By: #### P TT, PT #### [facility] [address] [place] [address] Dr. Judy Ramirez XR KUB 1 VIEWon 07-30-2022 XR KUB [...] by: JERICA HOOPER Date: 2022-07-30 09:38 Normal [facility] MR head/brain wo/w conon MR head/brain wo/w [facility] [place] [address] MRI Report Signed Patient: Cinthia Badillo MR#: [id number] 9 : 1970 Acct:[id number] Age/Sex: 52 / F ADM Date: 07/27/22 Loc: MR Room: Type: [facility] Attending Dr: Mohsen Jenkins Adult LEATHERSMITH-BC Copies to: JODI Powers Ordering Provider: JODI [...] Mike Gonzales M.D.07/28/2022 11:52 AM Dictation Location: [place] [address] Transcribed By: ROOPA 07/28/22 1152 Dictated By: Mike Gonzales II, MD 07/28/22 1138 Signed By: 07/28/22 1152 Normal [facility] CARDIAC MIKE ADMITon 023 CK [Catalytic activity/Vol] 84 U/L Normal 26-192 [facility] [place] Comment on above: Performed By: #### P TT, PT #### [facility] [address] [place] [address] Dr. Judy Ramirez CK.MB [Mass/Vol] 0.68 ng/mL Normal <=3.60 [facility] Comment on above: Performed By: #### P TT, PT #### [facility] [address] [place] [address] Dr. Judy Ramirez HSTROP 4.3 pg/mL Normal 4.0-51.3 [facility] Comment on above: Result Comment: CUT- OFF POINTS HAVE BEEN ESTABLISHED BASED ON THE FOURTH UNIVERSAL DEFINITIONS OF MYOCARDIAL INFARCTION. THE UPPER REFERENCE LIMIT (URL) OF TROPONIN, DEFINED THE 99TH PERCENTILE OF cTnI DISTRIBUTION IN A REFERENCE POPULATION, HAS BEEN CONFIRMED THE DECISION THRESHOLD FOR ME DIAGNOSIS. Performed By: #### P TT, PT #### [facility] [address] [place] [address] Dr. Judy Ramirez YASEMIN 31 ng/mL Normal 9-82 [facility] Comment on above: Performed By: #### P TT, PT #### [facility] [address] [place] [address] Dr. Judy Ramirez CBC AUTO DIFFon 07-08-2022 BASO # 0.1 103/ul Normal 0.0-0.1 [facility] Comment on above: Performed By: #### P TT, PT #### [facility] [address] [place] [address] Dr. Judy Ramirez Basophils/100 WBC (Bld) 0.7 % Normal 0.2-2.0 [facility] Comment on above: Performed By: #### P TT, PT #### [facility] [address] [place] [address] Dr. Judy Ramirez EO # 0.2 103/ul Normal 0.0-0.7 [facility] Comment on above: Performed By: #### P TT, PT #### [facility] [address] [place] [address] Dr. Judy Ramirez Eosinophils/100 WBC (Bld) 2.1 % Normal 0.9-7.0 [facility] [place] Comment on above: Performed By: #### P TT, PT #### [facility] [address] [place] [address] Dr. Judy Ramirez Erythrocyte distribution width (RBC) [Ratio] 12.8 % Normal 11.0-15.0 [facility] [place] Comment on above: Performed By: #### P TT, PT #### [facility] [address] [place] [address] Dr. Judy Ramirez Hematocrit (Bld) [Volume fraction] 40.6 % Normal 36.0-48.0 [facility] [place] Comment on above: Performed By: #### P TT, PT #### [facility] [address] [place] [address] Dr. Judy Ramirez Hemoglobin (Bld) [Mass/Vol] 13.6 g/dL Normal 12.0-16.0 [facility] [place] Comment on above: Performed By: #### P TT, PT #### [facility] [address] [place] [address] Dr. Judy Ramirez IG # 0.04 10e3/ul Critically high 0.00-0.03 [facility] [place] Comment on above: Performed By: #### P TT, PT #### [facility] [address] [place] [address] Dr. Judy Ramirez IG % 0.6 % Critically high 0.0-0.5 [facility] Comment on above: Performed By: #### P TT, PT #### [facility] [address] [place] [address] Dr. Judy Ramirez LYMPH # 2.6 103/ul Normal 1.2-3.8 [facility] Comment on above: Performed By: #### P TT, PT #### [facility] [address] [place] [address] Dr. Judy Ramirez Lymphocytes/100 WBC (Bld) 36.8 % Normal 20.5-60.0 [facility] [place] Comment on above: Performed By: #### P TT, PT #### [facility] [address] [place] [address] Dr. Judy Ramirez MANUAL DIFF REQ NO Normal [facility] [place] Comment on above: Performed By: #### P TT, PT #### [facility] [address] [place] [address] Dr. Judy Ramirez MCH (RBC) [Entitic mass] 28.8 pg Normal 26.7-34.0 [facility] [place] Comment on above: Performed By: #### P TT, PT #### [facility] [address] [place] [address] Dr. Judy Ramirez MCHC (RBC) [Mass/Vol] 33.5 g/dL Normal 29.9-35.2 [facility] [place] Comment on above: Performed By: #### P TT, PT #### [facility] [address] [place] [address] Dr. Judy Ramirez MCV (RBC) [Entitic vol] 86.0 fL Normal 81.0-99.0 [facility] [place] Comment on above: Performed By: #### P TT, PT #### [facility] [address] [place] [address] Dr. Judy Ramirez MONO # 0.4 103/ul Normal 0.3-0.8 [facility] [place] Comment on above: Performed By: #### P TT, PT #### [facility] [address] [place] [address] Dr. Judy Ramirez Monocytes/100 WBC (Bld) 6.0 % Normal 1.7-12.0 [facility] [place] Comment on above: Performed By: #### P TT, PT #### [facility] [address] [place] [address] Dr. Judy Ramirez NEUT # 3.8 103/ul Normal 1.4-6.5 [facility] Comment on above: Performed By: #### P TT, PT #### [facility] [address] [place] [address] Dr. Judy Ramirez Neutrophils/100 WBC (Bld) 53.8 % Normal 43.0-75.0 [facility] Comment on above: Performed By: #### P TT, PT #### [facility] [address] [address] [address] Judy Ramirez Platelet mean volume (Bld) [Entitic vol] 9.6 fL Normal 9.5-13.5 [facility] [place] Comment on above: Performed By: #### P TT, PT #### [facility] [address] [place] [address] Dr. Judy Ramirez PLT 276 103/ul Normal 150-450 [facility] [place] Comment on above: Performed By: #### P TT, PT #### [facility] [address] [place] [address] Dr. Judy Ramirez RBC 4.72 106/ul Normal 4.20-5.40 [facility] [place] Comment on above: Performed By: #### P TT, PT #### [facility] [address] [place] [address] Dr. Judy Ramirez WBC 7.0 103/ul Normal 4.0-11.0 [facility] [place] Comment on above: Performed By: #### P TT, PT #### [facility] [address] [place] [address] Dr. Judy Ramirez CRPon 07-08-2022 CRP [Mass/Vol] mg/L Normal <=1.0 [facility] [place] Comment on above: Performed By: #### P TT, PT #### [facility] [address] [place] [address] Dr. Judy Ramirez D-DIMERon 07-08-2022 D-DIMER 0.39 mg/L FEU Normal <=0.59 [facility] Comment on above: Performed By: #### P TT, PT #### [facility] [address] [place] [address] Dr. Judy Ramirez D-DIMER COMMENTS SEE BELOW Normal [facility] Comment on above: Result Comment: Incr eases [...] Performed By: #### P TT, PT #### [facility] [address] [place] [address] Dr. Judy Ramirez LIVER PROFILEon 07-08-2022 Albumin [Mass/Vol] 3.7 g/dL Normal 3.4-5.0 [facility] [place] Comment on above: Performed By: #### T SH, CRP, MG, LIVER, BMP, CMADM #### [facility] [address] [place] [address] Dr. Judy Ramirez Albumin/Globulin [Mass ratio] 0.9 {ratio} Normal [facility] [place] Comment on above: Performed By: #### T SH, CRP, MG, LIVER, BMP, CMADM #### [facility] [address] [place] [address] Dr. Judy Ramirez ALP [Catalytic activity/Vol] 98 U/L Normal 46-116 [facility] [place] Comment on above: Performed By: #### T SH, CRP, MG, LIVER, BMP, CMADM #### [facility] [address] [place] [address] Dr. Judy Ramirez ALT [Catalytic activity/Vol] 37 U/L Normal 14-59 [facility] [place] Comment on above: Performed By: #### T SH, CRP, MG, LIVER, BMP, CMADM #### [facility] [address] [place] [address] Dr. Judy Ramirez AST [Catalytic activity/Vol] 19 U/L Normal 15-37 [facility] [place] Comment on above: Performed By: #### T SH, CRP, MG, LIVER, BMP, CMADM #### [facility] [address] [place] [address] Dr. Judy Ramirez BILI, CONJUGATED 0.1 mg/dL Normal 0.0-0.2 [facility] [place] Comment on above: Performed By: #### T SH, CRP, MG, LIVER, BMP, CMADM #### [facility] [address] [place] [address] Dr. Judy Ramirez Bilirubin [Mass/Vol] 0.4 mg/dL Normal 0.2-1.0 [facility] [place] Comment on above: Performed By: #### T SH, CRP, MG, LIVER, BMP, CMADM #### [facility] [address] [place] [address] Dr. Judy Ramirez Globulin (S) [Mass/Vol] 4.0 g/dL Normal [facility] [place] Comment on above: Performed By: #### T SH, CRP, MG, LIVER, BMP, CMADM #### [facility] [address] [place] [address] Dr. Judy Ramirez Protein [Mass/Vol] 7.7 g/dL Normal 6.4-8.2 [facility] Comment on above: Performed By: #### T SH, CRP, MG, LIVER, BMP, CMADM #### [facility] [address] [place] [address] Dr. Judy Ramirez MAGNESIUMon 07-08-2022 Magnesium [Mass/Vol] 2.1 mg/dL Normal 1.8-2.4 [facility] [place] Comment on above: Performed By: #### T SH, CRP, MG, LIVER, BMP, CMADM #### [facility] [address] [place] [address] Dr. Judy Ramirez PROF CHEM 8 (BAS METB)on Anion gap [Moles/Vol] 11.0 mmol/L Normal [facility] Comment on above: Performed By: #### T SH, CRP, MG, LIVER, BMP, CMADM #### [facility] [address] [place] [address] Dr. Judy Ramirez Calcium [Mass/Vol] 9.4 mg/dL Normal 8.5-10.1 [facility] Comment on above: Performed By: #### T SH, CRP, MG, LIVER, BMP, CMADM #### [facility] [address] [place] [address] Dr. Judy Ramirez Chloride [Moles/Vol] 102 mmol/L Normal 98-107 [facility] Comment on above: Performed By: #### T SH, CRP, MG, LIVER, BMP, CMADM #### [facility] [address] [address] [address] Judy Ramirez CO2 [Moles/Vol] 29.4 mmol/L Normal 21.0-32.0 [facility] [place] Comment on above: Performed By: #### T SH, CRP, MG, LIVER, BMP, CMADM #### [facility] [address] [place] [address] Dr. Judy Ramirez Creatinine [Mass/Vol] 1.04 mg/dL Critically high 0.55-1.02 [facility] [place] Comment on above: Performed By: #### T SH, CRP, MG, LIVER, BMP, CMADM #### [facility] [address] [place] [address] Dr. Judy Ramirez EGFR-AF PAPUA NEW GUINEAN >60 Normal >=60 [facility] [place] Comment on above: Performed By: #### T SH, CRP, MG, LIVER, BMP, CMADM #### [facility] [address] [place] [address] Dr. Judy Ramirez EGFR-NON AF PAPUA [place] GUINEAN 56 mL/min/1.73m2 Critically low >=60 [facility] Comment on above: Performed By: #### T SH, CRP, MG, LIVER, BMP, CMADM #### [facility] [address] [place] [address] Dr. Judy Ramirez Glucose [Mass/Vol] 98 mg/dL Normal 74-106 [facility] Comment on above: Performed By: #### T SH, CRP, MG, LIVER, BMP, CMADM #### [facility] [address] [place] [address] Dr. Judy Ramirez Potassium [Moles/Vol] 4.4 mmol/L Normal 3.5-5.1 [facility] Comment on above: Performed By: #### T SH, CRP, MG, LIVER, BMP, CMADM #### [facility] [address] [place] [address] Dr. Judy Ramirez Sodium [Moles/Vol] 138 mmol/L Normal 136-145 [facility] Comment on above: Performed By: #### T SH, CRP, MG, LIVER, BMP, CMADM #### [facility] [address] [place] [address] Dr. Judy Ramirez Urea nitrogen [Mass/Vol] 25.0 mg/dL Critically high 7.0-18.0 [facility] [place] Comment on above: Performed By: #### T SH, CRP, MG, LIVER, BMP, CMADM #### [facility] [address] [place] [address] Dr. Judy Ramirez Urea nitrogen/Creatinine [Mass ratio] 24.0 mg/mg Normal [facility] Comment on above: Performed By: #### T SH, CRP, MG, LIVER, BMP, CMADM #### [facility] [address] [place] [address] Dr. Judy Ramirez SED RATE WESTERGREN 2022 SED RATE 27 mm/hr Normal <=30 [facility] [place] Comment on above: Performed By: #### S EDR #### [facility] [address] [place] [address] Dr. Judy Ramirez TSHon 07-08-2022 TSH 0.701 uIU/mL Normal 0.358-3.740 [facility] [place] Comment on above: Performed By: #### T SH, CRP, MG, LIVER, BMP, CMADM #### [facility] [address] [place] [address] Dr. Judy Ramirez UA (CLEAN/CATCH) GRANT OFFICER/MICRO I F IND.on 07-08-2022 Bilirubin Ql (U) Negative Normal NEGATIVE [facility] [place] Comment on above: Performed By: #### U ACSSIDDHARTHA UMICRO #### [facility] [address] [place] [address] Dr. Judy Ramirez Clarity (U) CLEAR Normal CLEAR [facility] Comment on above: Performed By: #### U ACSSIDDHARTHA UMICRO #### [facility] [address] [place] [address] Dr. Judy Ramirez Color (U) LT. YELLOW Normal YELLOW [facility] Comment on above: Performed By: #### U ACSSIDDHARTHA UMICRO #### [facility] [address] [address] [address] Judy Ramirez Glucose Ql (U) Negative Normal NEGATIVE [facility] [place] Comment on above: Performed By: #### U ACSIND, UMICRO #### [facility] [address] [place] [address] Dr. Judy Ramirez Hemoglobin Ql (U) Negative Normal NEGATIVE [facility] [place] Comment on above: Performed By: #### U ACSIND, UMICRO #### [facility] [address] [address] [address] Judy Ramirez Ketones Ql (U) Negative Normal NEGATIVE [facility] [place] Comment on above: Performed By: #### U ACSIND, UMICRO #### [facility] [address] [place] [address] Dr. Judy Ramirez LEUKOCYTES Negative Normal NEGATIVE [facility] [place] Comment on above: Performed By: #### U ACSIND, UMICRO #### [facility] [address] [place] [address] Dr. Judy Ramirez Nitrite Ql (U) Negative Normal NEGATIVE [facility] [place] Comment on above: Performed By: #### U ACSIND, UMICRO #### [facility] [address] [place] [address] Dr. Judy Ramirez pH (U) 6.0 [pH] Normal 5-9 [facility] [place] Comment on above: Performed By: #### U ACSIND, UMICRO #### [facility] [address] [place] [address] Dr. Judy Ramirez SPEC GRAVITY <=1.005 Abnormal 1.005-<=1.0 25 [facility] [place] Comment on above: Performed By: #### U ACSIND, UMICRO #### [facility] [address] [address] [address] Judy Ramirez UA PROTEIN Negative Normal NEGATIVE/ TRACE [facility] Comment on above: Performed By: #### U ACSIND, UMICRO #### [facility] [address] [place] [address] Dr. Judy Ramirez UR MICRO IND MICROSCOPIC ALREADY ORDERED Normal [facility] Comment on above: Performed By: #### U ACSIND, UMICRO #### [facility] [address] [address] [address] Judy Ramirez Urobilinogen Qn (U) 0.2 {Evelyn'U}/dL Normal 0.2 - 1. 0 [facility] Comment on above: Performed By: #### U ACSIND, UMICRO #### [facility] [address] [address] [address] Judy Ramirez URINE MICROSCOPIC ONLYon BACTERIA NONE SEEN Normal NONE SEEN [facility] Comment on above: Performed By: #### U ACSIND, UMICRO #### [facility] [address] [address] [address] Judy Ramirez Bacteria identified Cx Nom (U) NOT INDICATED Normal [facility] Comment on above: Performed By: #### U ACSIND, UMICRO #### [facility] [address] [place] [address] Dr. Judy Ramirez CAST NONE SEEN Normal NONE SEEN [facility] Comment on above: Performed By: #### U ACSIND, UMICRO #### [facility] [address] [address] [address] Judy Ramirez Crystals LM Nom (Urine sed) NONE SEEN Normal NONE SEEN [facility] Comment on above: Performed By: #### U ACSIND, UMICRO #### [facility] [address] [place] [address] Dr. Judy Ramirez Epithelial cells LM Ql (Urine sed) FEW Abnormal NONE SEEN /RARE [facility] Comment on above: Performed By: #### U ACSIND, UMICRO #### [facility] [address] [address] [address] Judy Ramirez MUCOUS TRACE Abnormal NONE SEEN [facility] Comment on above: Performed By: #### U ACSIND, UMICRO #### [facility] [address] [address] [address] Judy Ramirez RBC NONE SEEN Abnormal 0-2 [facility] Comment on above: Performed By: #### U ACSIND, UMICRO #### [facility] [address] [address] [address] Judy Ramirez WBC NONE SEEN Normal NONE SEEN [facility] Comment on above: Performed By: #### U ALMA MARTINEZ #### [facility] [address] [address] [address] Judy Ramirez XR KUB 1 VIEWon 07-02-2022 XR KUB [...] by: JERICA HOOPER Date: 2022-07-02 12:05 Normal [facility] CBC AUTO DIFFon 06-29-2022 BASO # 0.0 103/ul Normal 0.0-0.1 [facility] [place] Comment on above: Performed By: #### P TT, PT #### [facility] [address] [address] [address] Judy Ramirez Basophils/100 WBC (Bld) 0.4 % Normal 0.2-2.0 [facility] Comment on above: Performed By: #### P TT, PT #### [facility] [address] [address] [address] Judy Ramirez EO # 0.1 103/ul Normal 0.0-0.7 [facility] [place] Comment on above: Performed By: #### P TT, PT #### [facility] [address] [address] [address] Judy Ramirez Eosinophils/100 WBC (Bld) 1.5 % Normal 0.9-7.0 [facility] Comment on above: Performed By: #### P TT, PT #### [facility] [address] [address] [address] Judy Ramirez Erythrocyte distribution width (RBC) [Ratio] 13.1 % Normal 11.0-15.0 [facility] [place] Comment on above: Performed By: #### P TT, PT #### [facility] [address] [place] [address] Dr. Judy Ramirez Hematocrit (Bld) [Volume fraction] 40.7 % Normal 36.0-48.0 [facility] [place] Comment on above: Performed By: #### P TT, PT #### [facility] [address] [place] [address] Dr. Judy Ramirez Hemoglobin (Bld) [Mass/Vol] 13.8 g/dL Normal 12.0-16.0 [facility] [place] Comment on above: Performed By: #### P TT, PT #### [facility] [address] [place] [address] Dr. Judy Ramirez IG # 0.03 10e3/ul Normal 0.00-0.03 [facility] [place] Comment on above: Performed By: #### P TT, PT #### [facility] [address] [place] [address] Dr. Judy Ramirez IG % 0.4 % Normal 0.0-0.5 [facility] [place] Comment on above: Performed By: #### P TT, PT #### [facility] [address] [place] [address] Dr. Judy Ramirez LYMPH # 1.9 103/ul Normal 1.2-3.8 [facility] Comment on above: Performed By: #### P TT, PT #### [facility] [address] [place] [address] Dr. Judy Ramirez Lymphocytes/100 WBC (Bld) 24.5 % Normal 20.5-60.0 [facility] Comment on above: Performed By: #### P TT, PT #### [facility] [address] [place] [address] Dr. Judy Ramirez MANUAL DIFF REQ NO Normal [facility] [place] Comment on above: Performed By: #### P TT, PT #### [facility] [address] [place] [address] Dr. Judy Ramirez MCH (RBC) [Entitic mass] 28.4 pg Normal 26.7-34.0 [facility] Comment on above: Performed By: #### P TT, PT #### [facility] [address] [place] [address] Dr. Judy Ramirez MCHC (RBC) [Mass/Vol] 33.9 g/dL Normal 29.9-35.2 [facility] Comment on above: Performed By: #### P TT, PT #### [facility] [address] [place] [address] Dr. Judy Ramirez MCV (RBC) [Entitic vol] 83.7 fL Normal 81.0-99.0 [facility] Comment on above: Performed By: #### P TT, PT #### [facility] [address] [place] [address] Dr. Judy Ramirez MONO # 0.5 103/ul Normal 0.3-0.8 [facility] Comment on above: Performed By: #### P TT, PT #### [facility] [address] [place] [address] Dr. Judy Ramirez Monocytes/100 WBC (Bld) 6.5 % Normal 1.7-12.0 [facility] Comment on above: Performed By: #### P TT, PT #### [facility] [address] [place] [address] Dr. Judy Ramirez NEUT # 5.1 103/ul Normal 1.4-6.5 [facility] [place] Comment on above: Performed By: #### P TT, PT #### [facility] [address] [place] [address] Dr. Judy Ramirez Neutrophils/100 WBC (Bld) 66.7 % Normal 43.0-75.0 [facility] Comment on above: Performed By: #### P TT, PT #### [facility] [address] [place] [address] Dr. Judy Ramirez Platelet mean volume (Bld) [Entitic vol] 9.5 fL Normal 9.5-13.5 [facility] [place] Comment on above: Performed By: #### P TT, PT #### [facility] [address] [place] [address] Dr. Judy Ramirez PLT 238 103/ul Normal 150-450 [facility] Comment on above: Performed By: #### P TT, PT #### [facility] [address] [place] [address] Dr. Judy Ramirez RBC 4.86 106/ul Normal 4.20-5.40 [facility] [place] Comment on above: Performed By: #### P TT, PT #### [facility] [address] [place] [address] Dr. Judy Ramirez WBC 7.6 103/ul Normal 4.0-11.0 [facility] [place] Comment on above: Performed By: #### P TT, PT #### [place] [facility] [address] [place] [address] Dr. Judy Ramirez PROF CHEM 8 (BAS METB)on Anion gap [Moles/Vol] 11.5 mmol/L Normal [facility] Comment on above: Performed By: #### B MP #### [facility] [address] [place] [address] Dr. Judy Ramirez Calcium [Mass/Vol] 9.9 mg/dL Normal 8.5-10.1 [facility] [place] Comment on above: Performed By: #### B MP #### [facility] [address] [place] [address] Dr. Judy Ramirez Chloride [Moles/Vol] 105 mmol/L Normal 98-107 [facility] Comment on above: Performed By: #### B MP #### [facility] [address] [place] [address] Dr. Judy Ramirez CO2 [Moles/Vol] 28.1 mmol/L Normal 21.0-32.0 [facility] Comment on above: Performed By: #### B MP #### [facility] [address] [place] [address] Dr. Judy Ramirez Creatinine [Mass/Vol] 1.11 mg/dL Critically high 0.55-1.02 [facility] [place] Comment on above: Performed By: #### B MP #### [facility] [address] [place] [address] Dr. Judy Ramirez EGFR-AF PAPUA NEW GUINEAN >60 Normal >=60 [facility] Comment on above: Performed By: #### B MP #### [facility] [address] [address] [address] Judy Ramirez EGFR-NON AF PAPUA NEW GUINEAN 52 mL/min/1.73m2 Critically low >=60 [facility] [place] Comment on above: Performed By: #### B MP #### [facility] [address] [address] [address] Judy Ramirez Glucose [Mass/Vol] 97 mg/dL Normal 74-106 [facility] [place] Comment on above: Performed By: #### B MP #### [facility] [address] [address] [address] Judy Ramirez Potassium [Moles/Vol] 3.6 mmol/L Normal 3.5-5.1 [facility] [place] Comment on above: Performed By: #### B MP #### [facility] [address] [address] [address] Judy Ramirez Sodium [Moles/Vol] 141 mmol/L Normal 136-145 [facility] Comment on above: Performed By: #### B MP #### [facility] [address] [address] [address] Judy Ramirez Urea nitrogen [Mass/Vol] 15.0 mg/dL Normal 7.0-18.0 [facility] [place] Comment on above: Performed By: #### B MP #### [facility] [address] [address] [address] Judy Ramirez Urea nitrogen/Creatinine [Mass ratio] 13.5 mg/mg Normal [facility] [place] Comment on above: Performed By: #### B MP #### [facility] [address] [address] [address] Judy Ramirez PROTIMEon 06-29-2022 INR Coag (PPP) [Relative time] {INR} Normal [facility] [place] Comment on above: Performed By: #### S EDR #### [facility] [address] [address] [address] Judy Ramirez INR GUIDELINES SEE BELOW Normal [facility] Comment on above: Result Comment: KATHLEEN RED INR: 2.0 - 3.0 CONDITIONS NOT LISTED BELOW 2.5 - 3.5 FOR PROSTHETIC HEART VALVE REPLACEMENT 2.5 - 3.5 RECURRENT THROMBOSIS Performed By: #### S EDR #### [facility] [address] [place] [address] Dr. Judy Ramirez PT Coag (PPP) [Time] 9.8 s Normal 9.0-11.6 [facility] [place] Comment on above: Performed By: #### S EDR #### [facility] [address] [address] [address] Judy Ramirez PTTon 06-29-2022 aPTT Coag (Bld) [Time] 35.3 s Normal 22.3-36.2 [facility] Comment on above: Performed By: #### S EDR #### [facility] [address] [place] [address] Dr. Judy Ramirez XR KUB 1 VIEWon 06-20-2022 XR KUB [...] LUIS M SOLOMON Date: 2022-06-20 12:12 Normal [facility] MAMM SCREEN 3D LEE CADon 06-16-2022 MG MAMM SCREEN 3D LEE CAD Patient: CINHTIA BADILLO Exam Date: 06/16/2022 : 1970 Gender:F Ordering : ZELALEM PATTON CNP Admission #: [id number] Family : Order #: [id number] CLICK HERE TO VIEW EXAM RADIOLOGY REPORT [...] breast cancer at age 80. LOCATION: [facility] BREAST COMPOSITION: Scattered areas fibroglandular density. FINDINGS: [...] Solomon MD on 06/17/2022 at 08:06 Normal [facility] CT ABD/PELV W CONon 06-04-19 CT ABD/PELV [...] JERICA HOOPER Date: 2022-06-03 08:59 Normal [facility] AMYLASEon 05-23-2022 Amylase [Catalytic activity/Vol] 74 U/L Normal 25-115 [facility] Comment on above: Performed By: #### S EDR #### [facility] [address] [address] [address] Judy Ramirez CBC AUTO DIFFon 05-23-2022 BASO # 0.0 103/ul Normal 0.0-0.1 [facility] [place] Comment on above: Performed By: #### S EDR #### [facility] [address] [place] [address] Dr. Judy Ramirez Basophils/100 WBC (Bld) 0.5 % Normal 0.2-2.0 [facility] [place] Comment on above: Performed By: #### S EDR #### [facility] [address] [place] [address] Dr. Judy Ramirez EO # 0.1 103/ul Normal 0.0-0.7 [facility] [place] Comment on above: Performed By: #### S EDR #### [facility] [address] [address] [address] Judy Ramirez Eosinophils/100 WBC (Bld) 2.6 % Normal 0.9-7.0 [facility] [place] Comment on above: Performed By: #### S EDR #### [facility] [address] [place] [address] Dr. Judy Ramirez Erythrocyte distribution width (RBC) [Ratio] 12.4 % Normal 11.0-15.0 [facility] [place] Comment on above: Performed By: #### S EDR #### [facility] [address] [place] [address] Dr. Judy Ramirez Hematocrit (Bld) [Volume fraction] 41.1 % Normal 36.0-48.0 [facility] [place] Comment on above: Performed By: #### S EDR #### [facility] [address] [place] [address] Dr. Judy Ramirez Hemoglobin (Bld) [Mass/Vol] 13.8 g/dL Normal 12.0-16.0 [facility] [place] Comment on above: Performed By: #### S EDR #### [facility] [address] [place] [address] Dr. Judy Ramirez IG # 0.01 10e3/ul Normal 0.00-0.03 [facility] [place] Comment on above: Performed By: #### S EDR #### [facility] [address] [place] [address] Dr. Judy Ramirez IG % 0.2 % Normal 0.0-0.5 [facility] [place] Comment on above: Performed By: #### S EDR #### [facility] [address] [place] [address] Dr. Judy Ramirez LYMPH # 2.1 103/ul Normal 1.2-3.8 [facility] [place] Comment on above: Performed By: #### S EDR #### [facility] [address] [place] [address] Dr. Judy Ramirez Lymphocytes/100 WBC (Bld) 37.8 % Normal 20.5-60.0 [facility] [place] Comment on above: Performed By: #### S EDR #### [facility] [address] [place] [address] Dr. Judy Ramirez MANUAL DIFF REQ NO Normal [facility] [place] Comment on above: Performed By: #### S EDR #### [facility] [address] [place] [address] Dr. Judy Ramirez MCH (RBC) [Entitic mass] 28.4 pg Normal 26.7-34.0 [facility] [place] Comment on above: Performed By: #### S EDR #### [facility] [address] [place] [address] Dr. Judy Ramirez MCHC (RBC) [Mass/Vol] 33.6 g/dL Normal 29.9-35.2 [facility] [place] Comment on above: Performed By: #### S EDR #### [facility] [address] [place] [address] Dr. Judy Ramirez MCV (RBC) [Entitic vol] 84.6 fL Normal 81.0-99.0 [facility] [place] Comment on above: Performed By: #### S EDR #### [facility] [address] [address] [address] Judy Ramirez MONO # 0.3 103/ul Normal 0.3-0.8 [facility] [place] Comment on above: Performed By: #### S EDR #### [facility] [address] [address] [address] Judy Ramirez Monocytes/100 WBC (Bld) 5.5 % Normal 1.7-12.0 [facility] [place] Comment on above: Performed By: #### S EDR #### [facility] [address] [place] [address] Dr. Judy Ramirez NEUT # 2.9 103/ul Normal 1.4-6.5 [facility] [place] Comment on above: Performed By: #### S EDR #### [facility] [address] [place] [address] Dr. Judy Ramirez Neutrophils/100 WBC (Bld) 53.4 % Normal 43.0-75.0 [facility] [place] Comment on above: Performed By: #### S EDR #### [facility] [address] [place] [address] Dr. Judy Ramirez Platelet mean volume (Bld) [Entitic vol] 9.4 fL Critically low 9.5-13.5 [facility] [place] Comment on above: Performed By: #### S EDR #### [facility] [address] [place] [address] Dr. Judy Ramirez PLT 274 103/ul Normal 150-450 [facility] Comment on above: Performed By: #### S EDR #### [facility] [address] [place] [address] Dr. Judy Ramirez RBC 4.86 106/ul Normal 4.20-5.40 [facility] Comment on above: Performed By: #### S EDR #### [facility] [address] [place] [address] Dr. Judy Ramirez WBC 5.5 103/ul Normal 4.0-11.0 [facility] Comment on above: Performed By: #### S EDR #### [facility] [address] [address] [address] Judy Ramirez LIPASEon 05-23-2022 Lipase [Catalytic activity/Vol] 97.0 U/L Normal 73.0-393.0 [facility] [place] Comment on above: Performed By: #### U ACSADITYA CARLRO #### [facility] [address] [address] [address] Judy Ramirez LIPID PROFILEon 05-23-2022 CHOL-HDL RATIO NORM SEE BELOW Normal [facility] [place] Comment on above: Result Comment: 3.3 - 4.4 LOW RISK 4.4 - 7.1 AVERAGE RISK 7.1 - 11.0 MODERATE RISK >11.0 HIGH RISK Performed By: #### S EDR #### [facility] [address] [place] [address] Dr. Judy Ramirez Cholesterol [Mass/Vol] 203 mg/dL Critically high <=200 [facility] [place] Comment on above: Performed By: #### S EDR #### [facility] [address] [address] [address] Judy Ramirez Cholesterol in HDL [Mass/Vol] 48 mg/dL Normal 40-60 [facility] [place] Comment on above: Performed By: #### S EDR #### [facility] [address] [place] [address] Dr. Judy Ramirez Cholesterol in LDL [Mass/Vol] 130.0 mg/dL Normal [facility] [place] Comment on above: Performed By: #### S EDR #### [facility] [address] [address] [address] Judy Ramirez Cholesterol.total/Cho lesterol in HDL [Mass ratio] 4.2 {ratio} Normal [facility] [place] Comment on above: Performed By: #### S EDR #### [facility] [address] [place] [address] Dr. Judy Ramirez HDL NORMAL > or = 60 mg/dl - LO W CARDIOVASCULAR RISK <40 mg/dl - HIGH CARDIOVASCULAR RISK Normal [facility] [place] Comment on above: Performed By: #### S EDR #### [facility] [address] [place], [place] [id number] Dr. Judy Ramirez LDL CALC NORMAL SEE BELOW Normal [facility] [place] Comment on above: Result Comment: <100 mg/dl OPTIMAL 100 - 129 mg/dl NEAR OR ABOVE OPTIMAL 130 - 159 mg/dl BORDERLINE HIGH 160 - 189 mg/dl HIGH >190 mg/dl VERY HIGH Performed By: #### S EDR #### [facility] [address] [place] [address] Dr. Judy Ramirez Triglyceride [Mass/Vol] 125 mg/dL Normal <=150 [facility] Comment on above: Performed By: #### S EDR #### [facility] [address] [address] [address] Judy Ramirez VLDL CALC 25.0 mg/dL Normal [facility] [place] Comment on above: Performed By: #### S EDR #### [facility] [address] [place] [address] Dr. Jduy Ramirez PROF 14(COMP METB)on 023 Albumin [Mass/Vol] 3.5 g/dL Normal 3.4-5.0 [facility] [place] Comment on above: Performed By: #### U ACSSIDDHARTHA UMICRO #### [facility] [address] [place] [address] Dr. Judy Ramirez Albumin/Globulin [Mass ratio] 0.9 {ratio} Normal [facility] [place] Comment on above: Performed By: #### U ACSSIDDHARTHA UMICRO #### [facility] [address] [place] [address] Dr. Judy Ramirez ALP [Catalytic activity/Vol] 86 U/L Normal 46-116 [facility] Comment on above: Performed By: #### U ACSSIDDHARTHA UMICRO #### [facility] [address] [address] [address] Judy Ramirez ALT [Catalytic activity/Vol] 32 U/L Normal 14-59 [facility] Comment on above: Performed By: #### U ACSSIDDHARTHA, UMICRO #### [facility] [address] [place] [address] Dr. Judy Ramirez Anion gap [Moles/Vol] 9.6 mmol/L Normal [facility] [place] Comment on above: Performed By: #### U ACSSIDDHARTHA UMICRO #### [facility] [address] [address] [address] Judy Ramirez AST [Catalytic activity/Vol] 19 U/L Normal 15-37 [facility] [place] Comment on above: Performed By: #### U MICHELLE UMICRO #### [facility] [address] [place] [address] Dr. Judy Ramirez Bilirubin [Mass/Vol] 0.5 mg/dL Normal 0.2-1.0 [facility] [place] Comment on above: Performed By: #### U ACSSIDDHARTHA UMICRO #### [facility] [address] [place] [address] Dr. Judy Ramirez Calcium [Mass/Vol] 9.3 mg/dL Normal 8.5-10.1 [facility] [place] Comment on above: Performed By: #### U MICHELLE UMICRO #### [facility] [address] [place] [address] Dr. Judy Ramirez Chloride [Moles/Vol] 106 mmol/L Normal 98-107 [facility] Comment on above: Performed By: #### U MICHELLE UMICRO #### [facility] [address] [place] [address] Dr. Judy Ramirez CO2 [Moles/Vol] 30.7 mmol/L Normal 21.0-32.0 [facility] Comment on above: Performed By: #### U ACSSIDDHARTHA UMICRO #### [facility] [address] [place] [address] Dr. Judy Ramirez Creatinine [Mass/Vol] 0.92 mg/dL Normal 0.55-1.02 [facility] Comment on above: Performed By: #### U MICHELLE UMICRO #### [facility] [address] [place] [address] Dr. Judy Ramirez EGFR-AF PAPUA [place]AN >60 Normal >=60 [facility] Comment on above: Performed By: #### U ACSSIDDHARTHA UMICRO #### [facility] [address] [place] [address] Dr. Judy Ramirez EGFR-NON AF PAP[place] >60 Normal >=60 [facility] Comment on above: Performed By: #### U PINKY MARTINEZICRO #### [facility] [address] [address] [address] Judy Ramirez Globulin (S) [Mass/Vol] 3.9 g/dL Normal [facility] Comment on above: Performed By: #### U MICHELLE UMICRO #### [facility] [address] [address] [address] Judy Ramirez Glucose [Mass/Vol] 95 mg/dL Normal 74-106 [facility] Comment on above: Performed By: #### U MICHELLE UMICRO #### [facility] [address] [address] [address] Judy Ramirez Potassium [Moles/Vol] 4.3 mmol/L Normal 3.5-5.1 [facility] Comment on above: Performed By: #### PINKY RATLIFFICRO #### [facility] [address] [place] [address] Dr. Judy Ramirez Protein [Mass/Vol] 7.4 g/dL Normal 6.4-8.2 [facility] Comment on above: Performed By: #### PINKY RATLIFFICRO #### [facility] [address] [place] [address] Dr. Judy Ramirez Sodium [Moles/Vol] 142 mmol/L Normal 136-145 [facility] Comment on above: Performed By: #### U MICHELLE UMICRO #### [facility] [address] [place] [address] Dr. Judy Ramirez Urea nitrogen [Mass/Vol] 17.0 mg/dL Normal 7.0-18.0 [facility] Comment on above: Performed By: #### U MICHELLE UMICRO #### [facility] [address] [place] [address] Dr. Judy Ramirez Urea nitrogen/Creatinine [Mass ratio] 18.5 mg/mg Normal [facility] Comment on above: Performed By: #### U MICHELLE UMICRO #### [facility] [address] [address] [address] Judy Ramirez UA RANDOM W/MICROSCOPICon BACTERIA NONE SEEN Normal NONE SEEN [facility] Comment on above: Performed By: #### P TT, PT #### [facility] [address] [address] [address] Judy Ramirez Bilirubin Ql (U) Negative Normal NEGATIVE [facility] Comment on above: Performed By: #### P TT, PT #### [facility] [address] [address] [address] Judy Ramirez CAST NONE SEEN Normal NONE SEEN [facility] Comment on above: Performed By: #### P TT, PT #### [facility] [address] [place] [address] Dr. Judy Ramirez Clarity (U) CLEAR Normal CLEAR [facility] Comment on above: Performed By: #### P TT, PT #### [facility] [address] [place] [address] Dr. Judy Ramirez Color (U) LT. YELLOW Normal YELLOW [facility] Comment on above: Performed By: #### P TT, PT #### [facility] [address] [place] [address] Dr. Judy Ramirez Crystals LM Nom (Urine sed) NONE SEEN Normal NONE SEEN [facility] Comment on above: Performed By: #### P TT, PT #### [facility] [address] [place] [address] Dr. Judy Ramirez Epithelial cells LM Ql (Urine sed) FEW Abnormal NONE SEEN /RARE [facility] Comment on above: Performed By: #### P TT, PT #### [facility] [address] [place] [address] Dr. Judy Ramirez Glucose Ql (U) Negative Normal NEGATIVE [facility] Comment on above: Performed By: #### P TT, PT #### [facility] [address] [place] [address] Dr. Judy Ramirez Hemoglobin Ql (U) TRACE-INTACT Abnormal NEGATIVE [facility] Comment on above: Performed By: #### P TT, PT #### [facility] [address] [place] [address] Dr. Judy Ramirez Ketones Ql (U) Negative Normal NEGATIVE [facility] Comment on above: Performed By: #### P TT, PT #### [facility] [address] [place] [address] Dr. Judy Ramirez LEUKOCYTES Negative Normal NEGATIVE [facility] Comment on above: Performed By: #### P TT, PT #### [facility] [address] [place] [address] Dr. Judy Ramirez MUCOUS NONE SEEN Normal NONE SEEN [facility] Comment on above: Performed By: #### P TT, PT #### [facility] [address] [place] [address] Dr. Judy Ramirez Nitrite Ql (U) Negative Normal NEGATIVE [facility] Comment on above: Performed By: #### P TT, PT #### [facility] [address] [place] [address] Dr. Judy Ramirez pH (U) 7.0 [pH] Normal 5-9 [facility] Comment on above: Performed By: #### P TT, PT #### [facility] [address] [place] [address] Dr. Judy Ramirez RBC NONE SEEN Abnormal 0-2 [facility] Comment on above: Performed By: #### P TT, PT #### [facility] [address] [place] [address] Dr. Judy Ramirez SPEC GRAVITY 1.010 Normal 1.005-<=1.0 25 [facility] [place] Comment on above: Performed By: #### P TT, PT #### [facility] [address] [place] [address] Dr. Judy Ramirez UA PROTEIN Negative Normal NEGATIVE/ TRACE [facility] Comment on above: Performed By: #### P TT, PT #### [facility] [address] [place] [address] Dr. Judy Ramirez Urobilinogen Qn (U) 0.2 {Evelyn'U}/dL Normal 0.2 - 1. 0 [facility] [place] Comment on above: Performed By: #### P TT, PT #### [facility] [address] [place] [address] Dr. Judy Ramirez WBC NONE SEEN Normal NONE SEEN [facility] Comment on above: Performed By: #### P TT, PT #### [facility] [address] [place] [address] Dr. Judy Ramirez CULTURE THROATon 12-24-2021 CULTURE [...] F Tetracycline >=16 R F Normal [facility] Comment on above: Performed By: #### S EDR #### [facility] [address] [place] [address] Dr. Judy Ramirez [facility] SARS-CoV-2 (COVID-19) RNA CAROLA+probe Ql (Unsp spec) Not detected Normal NOT DETECTED [facility] Comment on above: Result Comment: This test is not yet approved or cleared by the [place] FDA. When there are no FDA-approved or cleared tests available, and other criteria are met, FDA can make tests available under an emergency access mechanism called an Emergency Use Authorization (EUA). The EUA for this test is supported by the [place] [employer] of [employer] and Human Service's (HHS's) declaration [...] Performed By: #### U ACSIND, UMICRO #### [facility] [address] [address] [address] Judy Ramirez COVID-19 Positive/NegativeOr dered By: Luis M Juarez on 08-13-2021 SARS-CoV-2 (COVID-19) N gene CAROLA+probe Ql (Resp) Negative Negative [facility] Comment on above: Testing for SARS-CoV -2 by RT-PCR This test was developed and its performance characteristics determined by [employer] and validated at the [facility]. This test has not been FDA [...] Time Vital Sign Value Performing Clinician Facility 12-27-2023 18:09-0400 Body height 167.6 cm Kamilla Patton [employer] Work Phone: [facility] 12-27-2023 18:09-0400 Body mass index (BMI) [Ratio] 35.28 kg/m2 Kamilla Patton [employer] Work Phone: [facility] 12-27-2023 18:09-0400 Body temperature 98.8 [degF] Kamilla Patton [employer] Work Phone: [facility] 12-27-2023 18:09-0400 Body weight 99.16 kg Kamilla Patton [employer] Work Phone: [facility] 12-27-2023 18:09-0400 Diastolic blood pressure 82 mm[Hg] Kamilla Brownharriet [employer] Work Phone: [facility] 12-27-2023 18:09-0400 Heart rate 87 /min Kamilla Brownharriet LEATHERSMITH Work Phone: [facility] 12-27-2023 18:09-0400 Respiratory rate 18 /min Kamilla Brownharriet LEATHERSMITH Work Phone: [facility] 12-27-2023 18:09-0400 SaO2% (BldA) [Mass fraction] 97 % Kamilla Brownharriet LEATHERSMITH Work Phone: [facility] 12-27-2023 18:09-0400 Systolic blood pressure 124 mm[Hg] Kamilla Brownharriet LEATHERSMITH Work Phone: [facility] 07-07-2023 13:13-0400 Body height 165.1 cm [facility] 07-07-2023 13:13-0400 Body mass index (BMI) [Ratio] 34.1 kg/m2 [facility] 07-07-2023 13:13-0400 Body weight 92.98 kg [facility] 04-20-2023 15:47-0500 Body height 167.6 cm Zonia Pak DPM Work Phone: [facility] 04-20-2023 15:47-0500 Body mass index (BMI) [Ratio] 34.22 kg/m2 Zonia Pak DPM Work Phone: [facility] 04-20-2023 15:47-0500 Body weight 96.16 kg Zonia Pak DPM Work Phone: [facility] 12-28-2022 14:59-0400 Blood Pressure Location Anand LOPEZ [facility] 12-28-2022 14:59-0400 Diastolic blood pressure 86 mm[Hg] Anand LOPEZ [facility] 12-28-2022 14:59-0400 Heart rate 80 /min Anand LOPEZ [facility] 12-28-2022 14:59-0400 Respiratory rate 16 /min Anadn LOPEZ [facility] 12-28-2022 14:59-0400 Systolic blood pressure 121 mm[Hg] Anand LOPEZ [facility] 09-30-2022 09:18-0400 Diastolic blood pressure 62 mm[Hg] [facility] 09-30-2022 09:18-0400 Heart rate 69 /min [facility] 09-30-2022 09:18-0400 Respiratory rate 16 /min [facility] 09-30-2022 09:18-0400 SaO2% (BldA) [Mass fraction] 98 % [facility] 09-30-2022 09:18-0400 Systolic blood pressure 96 mm[Hg] [facility] 09-30-2022 07:14-0400 Body height 165.1 cm [facility] 09-30-2022 07:14-0400 Body temperature 97.6 [degF] [facility] 09-30-2022 07:14-0400 Body weight 88.45 kg [facility] 08-13-2022 15:00-0400 Body weight 107 mg [facility] 08-15-2021 09:15-0400 Diastolic blood pressure 64 mm[Hg] DO Luis M Hykes Work Phone: [facility] 08-15-2021 09:15-0400 Heart rate 80 /min DO Luis M Hykes Work Phone: [facility] 08-15-2021 09:15-0400 Respiratory rate 20 /min DO Luis M Hykes Work Phone: [facility] 08-15-2021 09:15-0400 SaO2% (BldA) [Mass fraction] 100 % DO Luis M Hykes Work Phone: [facility] 08-15-2021 09:15-0400 Systolic blood pressure 112 mm[Hg] DO Luis M Juarez Work Phone: [facility] 08-15-2021 07:15-0400 Body height 166.37 cm DO Luis M Juarez Work Phone: [facility] 08-15-2021 07:15-0400 Body mass index (BMI) [Ratio] 32.8 kg/m2 DO Luis M Juarez Work Phone: [facility] 08-15-2021 07:15-0400 Body temperature 98.1 [degF] DO Luis M Juarez Work Phone: [facility] 08-15-2021 07:15-0400 Body weight 90.71 kg DO Luis M Juarez Work Phone: [facility] Encounters Encounter Date Encounter Type Care Provider Facility Start: 01-18-2024 ambulatory Sena X Orzech Facilit y:[facility] Start: 12-27-2023 End: 12-27-2023 Office outpatient visit 15 minutes Kamilla Patton LEATHERSMITH Work Phone: [facility] Comment on above: Gastroesophageal ref lux disease without esophagitis (Primary Dx); Pulmonary hypertension, unspecified ([facility]/HCC); Obesity (BMI 30-39.9) Start: 12-27-2023 End: 12-27-2023 ambulatory KAMILLA PATTON Not Available Start: 12-27-2023 End: 12-27-2023 Bamboo flowsheet Kamilla Patton LEATHERSMITH Work Phone: [facility] Start: 12-27-2023 End: 12-27-2023 Bamboo flowsheet Kamilla Patton LEATHERSMITH Work Phone: [facility] Start: 11-10-2023 End: 11-10-2023 ambulatory MOHSEN JENKINS Not Available Start: 10-22-2023 End: 10-22-2023 ambulatory Mendez Lund MD Work Phone: Gastroenterology Comment on above: Gastroesophageal ref lux disease, unspecified whether esophagitis present (Primary Dx) Start: 10-22-2023 End: 10-22-2023 Telemedicine consultation with patient Mendez Lund MD Work Phone: Gastroenterology Start: 09-20-2023 End: 09-20-2023 ambulatory KAMILLA AICHHOLZ Not Available Start: 08-02-2023 End: 08-03-2023 ambulatory Kamilla Humera 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[employer] Facility:[facility] Start: 07-07-2023 End: 07-07-2023 ambulatory [facility] Work Phone: Start: 07-07-2023 End: 07-07-2023 Patient encounter procedure [facility] Gastroenterology Work Phone: Start: 07-05-2023 End: 07-05-2023 ambulatory KAMILLA AICHHOLZ Not Available Start: 06-21-2023 ambulatory Kristine Ramirez PA-C Facility:[facility] Start: 05-17-2023 End: 05-17-2023 ambulatory KAMILLA AICHHOLZ Not Available Start: 04-28-2023 Refill Kamilla Bisihholz LEATHERSMITH Work Phone: [facility] Comment on above: Gastroesophageal ref lux disease without esophagitis Start: 04-20-2023 End: 04-20-2023 ambulatory ZONIA PAK Not Available Start: 04-20-2023 End: 04-20-2023 Office outpatient visit 15 minutes Zonia Pak DPM Work Phone: [facility] Comment on above: Onychomycosis (Prima ry Dx); Nail dystrophy; Pain in toes of both feet Start: 04-06-2023 End: 04-15-2023 ambulatory ISABELLE R [facility] Start: 03-18-2023 End: 03-18-2023 ambulatory KAMILLA AICHHOLZ Not Available Start: 01-19-2023 End: 01-19-2023 ambulatory MOHSEN JENKINS Facility[facility] Start: 01-19-2023 End: 01-19-2023 Patient encounter procedure Mohsen Jenkins [facility] Start: 12-28-2022 End: 12-28-2022 Patient encounter procedure Anand LOPEZ [facility] Start: 09-30-2022 End: 09-30-2022 ambulatory Imad Asaad Facility:[facility] Start: 09-30-2022 End: 09-30-2022 Admission to same day surgery center [facility] Work Phone: Start: 09-30-2022 End: 09-30-2022 ambulatory NON STAFF [facility] Work Phone: Start: 08-31-2022 End: 08-31-2022 ambulatory Imad Asaad Facility:[facility] Start: 08-31-2022 End: 08-31-2022 ambulatory NON STAFF [facility] Work Phone: Start: 08-31-2022 End: 08-31-2022 Patient encounter procedure [facility] [place] Work Phone: Start: 08-13-2022 End: 08-13-2022 ambulatory NON STAFF [facility] Work Phone: Start: 08-13-2022 End: 08-13-2022 Departed Referred [facility] [place] Work Phone: Start: 08-11-2022 End: 08-15-2022 Pre-admission assessment Mohsen Raisajasper [facility] Start: 08-10-2022 Encounter for preprocedural laboratory examination DR ANAND LOPEZ . [facility] Start: 08-07-2022 End: 08-08-[address] ANAND LOPEZ . Facility:[facility] Start: 08-07-2022 End: 08-08-2022 Encounter for preprocedural laboratory examination DR ANAND LOPEZ . Facility:[facility] Start: 07-29-2022 End: 07-30-[address] ANAND LOPEZ . Facility:[facility] Start: 07-27-2022 End: 07-27-2022 ambulatory Mohsen Jenkins Facility:[facility] Start: 07-27-2022 End: 07-27-2022 ambulatory NON STAFF [facility] Work Phone: Start: 07-27-2022 End: 07-27-2022 Patient encounter procedure [facility] [place] Work Phone: Start: 07-08-2022 End: 07-09-2022 ambulatory ZELALEM PATTON Facility:[facility] Start: 07-05-2022 Encounter for preprocedural cardiovascular examination DR ANAND LOPEZ . [facility] Start: 07-05-2022 Encounter for preprocedural laboratory examination DR ANAND LOPEZ . [facility] Start: 07-02-2022 End: 07-02-[address] ANAND LOPEZ . Facility:[facility] Start: 06-29-2022 End: 06-30-[address] ANAND LOPEZ . Facility:[facility] Start: 06-29-2022 End: 06-30-2022 Encounter for preprocedural cardiovascular examination DR ANAND LOPEZ . Facility:[facility] Start: 06-20-2022 End: 06-21-[address] ANAND LOPEZ . Facility:[facility] Start: 06-16-2022 End: 06-17-2022 ambulatory [employer] KAMILLA PATTON Facility:[facility] Start: 06-03-2022 End: 06-04-2022 ambulatory [employer] KAMILLA LORIEZ Facility:[facility] Start: 05-23-2022 End: 05-24-2022 ambulatory [employer] KAMILLA EDI Facility:[facility] Start: 12-22-2021 End: 12-22-2021 ambulatory SHAIKH Meghana NEWTON Facility:[facility] Start: 08-15-2021 End: 08-15-2021 Admission to same day surgery center DO Luis M Juarez Work Phone: [facility] Start: 08-13-2021 End: 08-13-2021 Patient encounter procedure DO Luis M Juarez Work Phone: [facility]Pre-Surgical [facility] Procedures Date Procedure Procedure Detail Performing Clinician Start: 09-30-2022 Esophagogastroduodenoscopy Start: 08-31-2022 Radionuclide gastric emptying study Start: 08-13-2022 Rigid cystoscopy Anand PATI Start: 07-27-2022 MRI of head Start: 07-02-2022 Extracorporeal shockwave lithotripsy of calculus of kidney Anand LOPEZ Start: 06-16-2022 Mammography Zonia Pak DPM Work Phone: Start: 08-15-2021 Esophagogastroduodenoscopy DO Luis M nunes Work Phone: Start: 08-15-2021 Colonoscopy Zonia ANTONM Work Phone: Start: 01-02-2020 Microscopic observation [Identifier] in Cervix by Cyto stain Zonia Pak DPM Work Phone: Start: 05-26-2019 Lipid 1996 panel - Serum or Plasma Mendez Lund MD Work Phone: Cholecystectomy Mohsen hutchinson Hysterectomy Mohsen wang Plan of Treatment Date Care Activity Detail Author Start: 08-16-2031 Screening for malign ant neoplasm of colon [facility] Start: 05-25-2024 Lipid panel Lipid Screening [facility] Start: 04-24-2024 End: 04-24-2024 Patient encounter procedure 04/24/2024 4:00 PM EST Office Visit [facility] [address] [facility] [address] [place] [address] Mohsen Jenkins, KAYLAH [address] [place] [address] [facility] Start: 03-29-2024 End: 03-29-2024 Patient encounter procedure 03/29/2024 6:00 PM EST Office Visit [facility] [address] [place] [address] Kamilla Patton, LEATHERSMITH [address] [place] [phone] [facility] Start: 01-13-2024 Influenza vaccination Influenza Vacc ine (#1) [facility] Comment on above: Postponed from 11/13 (Patient Does Not Have Time) Start: 12-27-2023 End: 12-27-2023 Patient encounter procedure 12/27/2023 6:00 PM EDT Office Visit [facility] [address] [place] [address] Kamilla Patton, LEATHERSMITH [address] [place] [phone] Pulmonary hypertension, unspecified (CMS/HCC) [facility] Comment on above: Pulmonary hypertensi on, unspecified (CMS/HCC) Start: 11-14-2023 Influenza vaccination Influenza Vacc ine (#1) [facility] Start: 06-17-2023 Screening for malign ant neoplasm of breast Mammogram [facility] Start: 05-17-2023 End: 05-17-2023 Patient encounter procedure 05/17/2023 7:00 PM EST Office Visit [facility] [address] [place] [address] Kamilla Patton, LEATHERSMITH [address] [place] [phone] [facility] Start: 04-29-2023 End: 04-29-2023 Patient encounter procedure 04/29/2023 6:00 PM EST Office Visit [facility] [address] [place] [address] Kamilla Patton, KAYLAH [address] [place] [address] [facility] Start: 01-01-2023 Screening for malign ant neoplasm of cervix Pap Smear [facility] Start: 11-13-2022 Covid-19 Vaccine () Covid-19 Vaccine () [facility] Start: 09-30-2022 [facility] Start: 07-27-2022 MR Unspecified body region [facility] Start: 07-27-2022 MRI of head MR head/brain wo/w con [facility] Start: 05-25-2022 Diabetes Screening Diabetes Screenin g [facility] Start: 2021 Shingrix Vaccine (1 of 2) Dewitt grix Vaccine (1 of 2) [facility] Start: 05-01-2020 Screening for malign ant neoplasm of breast Mammogram Screening [facility] Start: 07-18-2019 Urine microalbumin profile DTaP,Tdap,Td Vaccine (2 - Td or Tdap) [facility] Start: 01-26-2016 Screening for malign ant neoplasm of colon [facility] Start: 2001 Screening for malign ant neoplasm of cervix HPV/Cotest [facility] Start: 01-26-1992 Screening for malign ant neoplasm of cervix Cervical Cancer Screening [facility] Start: 1990 Hepatitis B Vaccine (1 of 3 - 19+ 3-dose series) Hepatitis B Vaccine (1 of 3 - 19+ 3-dose series) [facility] Start: 1989 Anxiety Screening Anxiety Screening [facility] Start: 1989 Depression Screening Depression Scre ening [facility] Start: 1989 Hepatitis C screening Hepatitis C Sc reening [facility] Start: 1989 HIV screening HIV Screening [facility] Start: 1971 Screening for malign ant neoplasm of colon [facility] Bilirubin measurement [facility] Body weight [facility] Calcium carbonate/To mirna in [facility] Calcium hydrogen phosphate dihydrate/Total in [facility] Calcium oxalate monohydrate/Total in [facility] Calcium phosphate level [facility] Calculus analysis wi th calculus photography [Interpretation] in Stone [facility] Calculus analysis, qualitative [facility] Calculus analysis, quantitative [facility] Calculus analysis, quantitative, infrared spectroscopy [facility] Cellular material [Mass/mass] of Stone by Estimated [facility] Cholesterol [Mass/vo lume] in Serum or Plasma [facility] Cystine measurement [facility] Determination of annie culus chemical composition [facility] Evaluation procedure [facility] Hydroxyapatite [Ener gy Difference] in 24 hour Urine [facility] Laboratory data interpretation [facility] Newberyite/Total in Stone [facility] Esophagitis Hi atal Hernia (DC) Stomach polyps [facility] Work Phone: Specimen source subj ect [Type] [facility] Triamterene measurement [facility] Triple phosphate/Tot al in Stone [facility] Immunizations Immunization Date Immunization Notes Care Provider [facility] 12-27-2022 influenza virus vaccine, unspecified formulation Zonia Pak DPM Work Phone: [facility] 10-09-2021 SARS-CoV-2 mRNA (miymiaiqigw-mqti-qqoh ose) vaccine Mohsen Windnagel [facility] 02-13-2021 COVID-19 mRNA, Comirnaty (Pfizer) DO Luis M Juarez Work Phone: [facility] 05-08-2020 COVID-19 mRNA, Comirnaty (Pfizer) DO Luis M Juarez Work Phone: [facility] Comment on above: Result Comment: 2022: TPV40 04-06-2020 SARS-CoV-2 (COVID-19 ) mRNA BNT-162b2 vax Mohsen Windnagel [facility] Comment on above: Result Comment: 2022: [id number] 04-02-2020 COVID-19 Shantel Kumar (Pfizer) DO Luis M Juarez Work Phone: [facility] Comment on above: Result Comment: 2022: TPV40 07-17-2009 tetanus toxoid, reduced diphtheria toxoid, and acellular pertussis vaccine, adsorbed Mohsen Windnagel [facility] Payers Date Payer Category Payer Self-pay [id number] 2022 [facility] er [id number] 2020 Unknown [id number] 1.13.693.2 .[id number] 1971 Unknown [id number] 2.16.840.1.530057.3.579.2 .593 1971 Unknown [id number] 2.16.840.1.280572.3.579.2 .593 1971 Unknown [id number] 2.16.840.1.673898.3.579.2 .593 1971 Unknown [id number] 2.16.840.1.544999.3.579.2 .593 1971 Unknown [id number] 2.16.840.1.528923.3.579.2 .593 1971 Unknown [id number] 2.16.840.1.283866.3.579.2 .593 1971 Unknown [id number] 2.16.840.1.635819.3.579.2 .593 1971 Unknown [id number] 2.16.840.1.123260.3.579.2 .593 1971 Unknown [id number] 2.16.840.1.155211.3.579.2 .593 1971 Unknown [id number] 2.16.840.1.686866.3.579.2 .593 1971 Unknown [id number] 2.16.840.1.604779.3.579.2 .593 1971 Unknown [id number] 2.16.840.1.957692.3.579.2 .1286 1971 Unknown [id number] 2.16.840.1.199760.3.579.2 .196 1971 Unknown [id number] 2.16.840.1.649345.3.579.2 .196 1971 Unknown [id number] 2.16.840.1.995731.3.579.2 .196 1971 Unknown [id number] 2.16.840.1.143759.3.579.2 .1259 1971 Unknown [id number] 2.16.840.1.200375.3.579.2 .1259 1971 Unknown [id number] 2.16.840.1.311081.3.579.2 .1259 1971 Unknown [id number] 2.16.840.1.723431.3.579.2 .1259 1971 Unknown [id number] 2.16.840.1.864221.3.579.2 .1259 1971 Unknown [id number] 2.16.840.1.390341.3.579.2 .1259 1971 Unknown [id number] 2.16.840.1.769332.3.579.2 .1259 1971 Unknown [id number] 2.16.840.1.359289.3.579.2 .727 1971 Unknown [id number] 2.16.840.1.687106.3.579.2 .727 1959 Unknown [id number] Unknown [id number] 2.16.840.1.733860.3.579.2 .531 Unknown [id number] 2.16.840.1.748622.3.579.2 .531 Unknown [id number] 2.16.840.1.069035.3.579.2 .531 Unknown [id number] 2.16.840.1.111851.3.579.2 .531 Social History Date Type Detail [facility] Work Phone: Start: 1970 Sex Assigned At Female [facility] Start: 06-22-2022 End: 04-20-2023 Tobacco smoking status Never smoked tobacco (finding) [facility] Tobacco smoking status Never [facility] Start: 03-17-2023 End: 07-05-2023 Sex Assigned At Female [facility] Start: 04-20-2023 Tobacco use and exposure Smokeless tobacco non-user [facility] Start: 04-20-2023 End: 12-27-2023 Alcohol intake Ex-drinker (finding) [facility] Start: [...] 02-08-2023 Sexual orientation Heterosexual (finding) [facility] Tobacco smoking stat [facility] Tobacco smoking consumption unknown [facility] Start: 1970 Sex Assigned At Not on file [facility] Goals Date Patient Goal Desired Activity /State Functional Status Date Assessment Result Facility 12-28-2022 Functional Status N/A [facility] Clinical Notes 08-15-2021 to 12-27-2023 Kamilla Patton NP - 12/27/2023 7:06 PM Ana Patton NP - 12/27/2023 7:06 PM Ana Patton NP - 12/27/2023 6:00 PM Ana Patton NP - 12/27/2023 7:38 AM EDTPatient Instructions Note Date & Type Note Facility 12-27-2023 History of Present illness Narrative Associated Problem(s): Obesity (BMI 30-39.9) Consider WW Associated Problem(s): Gastroesophageal reflux disease without esophagitis Cont PPI at BID as well as famotidine ONLY on PRN basis Fu in 3 months Continue w aggressive GERD therapy, weight loss Images from the original note were not included. Cinthia Badillo is a 53 y.o. female presents with chief complaint of No chief complaint on file. HPI: Here for a recheck for GERD: Since last visit has telehealth visit with [facility], trialed on nexium gave her abd cramping and diarrhea, is back to pantoprazole 40mg BID She did discuss fundiplicaton surgery, it wasn't recommended. And it was offered as possible gastric bypass as an option to see if this would help. She does not want to do this at this time. No other changes SUBJECTIVE: MEDICATIONS: Current Outpatient Medications Medication Instructions amitriptyline (ELAVIL) 50 mg, Oral, Nightly pantoprazole (PROTONIX) 40 mg, Oral, 2 times daily, Take 40 mg by mouth in the morning and 40 mg before bedtime. zonisamide (Zonegran) 25 MG capsule TAKE 1 CAPSULE BY MOUTH TWICE DAILY WITH 50 MG CAPS TO EQUAL 75 MG zonisamide (ZONEGRAN) 50 mg, Oral, 2 times daily ALLERGIES: Allergies Allergen Reactions Penicillins Hives REVIEW OF SYMPTOMS: Review of Systems Constitutional: Negative for appetite change, chills and fever. HENT: Negative for congestion, ear pain and sore throat. Eyes: Negative for pain, discharge, redness and visual disturbance. Respiratory: Negative for cough, shortness of breath and wheezing. Cardiovascular: Negative for chest pain, palpitations and leg swelling. Gastrointestinal: Negative for abdominal pain, blood in stool, constipation, diarrhea, nausea and vomiting. GERD Genitourinary: Negative for difficulty urinating, dysuria and frequency. Musculoskeletal: Negative for arthralgias, back pain, joint swelling and myalgias. Skin: Negative for rash and wound. Neurological: Negative for dizziness, tremors, seizures, syncope and headaches. Psychiatric/Behavioral: Negative for behavioral problems, self-injury and suicidal ideas. The patient is not nervous/anxious. Hematological: Does not bruise/bleed easily. Endocrine: Negative for polydipsia, polyphagia and polyuria. Allergic/Immunologic: Negative for environmental allergies and food allergies. PAST MEDICAL HISTORY Past Medical History: Diagnosis Date Abnormal uterine bleeding (AUB) Acid reflux Anaphylactic urticaria Has pending labs At low risk for fall Calf pain Cervical smear refused Chest pain, atypical Enlarged uterus Epigastric pain Esophagitis GERD (gastroesophageal reflux disease) GERD with esophagitis Heartburn Hypokalemia Influenza vaccination declined Insomnia Kidney stone on left side Lumbar back pain Menometrorrhagia Microscopic hematuria Migraine with status migrainosus, not intractable, unspecified migraine type (CMS/HCC) Palpitation Pancreatitis 2017 Paresthesia Pelvic pain S/P laparoscopy Thickened endometrium Trigeminal neuralgia (CMS/HCC) Past Surgical History: Procedure Laterality Date APPENDECTOMY 1991 or CHOLECYSTECTOMY HERNIA REPAIR 1974 HYSTERECTOMY 2019 ovaries still present, non cancerous KNEE ARTHROSCOPY W/ DEBRIDEMENT Right 1990 x2, 2010 LITHOTRIPSY OVARY SURGERY 1991 Ovarian Resection - [place] family history includes Arthritis in her mother; Breast cancer in her maternal grandmother; COPD in her father; Coronary artery disease in her father; Diabetes in her father and mother; Hearing loss in her mother; Heart attack in her father; Heart disease in her father; Hyperlipidemia in her father and mother; Hypertension in her father and mother; Multiple sclerosis in her niece; Pulmonary fibrosis in her father; Stomach cancer in her paternal grandfather. OBJECTIVE: Visit Vitals BP 124/82 (BP Location: Right arm, Patient Position: Sitting, BP Cuff Size: Adult long) Pulse 87 Temp 98.8 F (Temporal) Resp 18 Ht 5' 6 Wt 218 lb 9.6 oz SpO2 97% BMI 35.28 kg/m Smoking Status Never BSA 2.15 m Physical Exam Vitals and nursing note reviewed. Constitutional: General: She is not in acute distress. Appearance: Normal appearance. HENT: Head: Normocephalic and atraumatic. Right Ear: External ear normal. Left Ear: External ear normal. Nose: Nose normal. Mouth/Throat: Mouth: Mucous membranes are moist. Eyes: Extraocular Movements: Extraocular movements intact. Conjunctiva/sclera: Conjunctivae normal. Cardiovascular: Rate and Rhythm: Normal rate and regular rhythm. Pulses: Normal pulses. Heart sounds: Normal heart sounds. Pulmonary: Effort: Pulmonary effort is normal. Breath sounds: Normal breath sounds. Abdominal: General: Bowel sounds are normal. There is no distension. Palpations: Abdomen is soft. There is no mass. Tenderness: There is no abdominal tenderness. Musculoskeletal: General: Normal range of motion. Cervical back: Normal range of motion and neck supple. Skin: General: Skin is warm and dry. Capillary Refill: Capillary refill takes 2 to 3 seconds. Findings: No rash. Neurological: General: No focal deficit present. Mental Status: She is alert and oriented to person, place, and time. Psychiatric: Mood and Affect: Mood normal. Behavior: Behavior normal. Thought Content: Thought content normal. Judgment: Judgment normal. ASSESSMENT AND PLAN: Follow up in about 3 months (around 03/28/2024) for Recheck. Problem List Items Addressed This Visit Gastroesophageal reflux disease without esophagitis - Primary Cont PPI at BID as well as famotidine ONLY on PRN basis Fu in 3 months Continue w aggressive GERD therapy, weight loss Obesity (BMI 30-39.9) Consider WW Pulmonary hypertension, unspecified (CMS/HCC) Per echo reads Associated Problem(s): Pulmonary hypertension, unspecified (CMS/HCC) Per echo reads documented in this encounter [facility] 10-22-2023 Instructions Mendez Lund MD - 10/22/2023 3:30 PM EDT Stop pantoprazole and famotidine. Start esomeprazole 40mg twice daily - Take 30 min before breakfast and dinner 2. Return to clinic in 3 months. You can call [phone] to schedule documented in this encounter [facility] 10-22-2023 Note HNO ID: [id number] Author: MENDEZ LUND MD Service: ? Author Type: Physician Type: Progress Notes Filed: 10/22/2023 15:33 Note Text: NEW VIRTUAL CONSULT I had a virtual consult with Ms. Badillo today. Her local doctors have given her a diagnosis of GERD. This consult was requested by Dr Patton for an opinion regarding GERD , and my final recommendations will be communicated to the requesting health care provider by way of the shared medical record for internal providers or letter via the [place] Postal Service for external providers. I have communicated my name and active licensure. The patient's identity and physical location were verified at the time of this visit. Either the patient or their legal solar manufacturer's representative has been informed of the risks and benefits of -- and alternatives to -- treatment through a remote evaluation and consents to proceed with the evaluation remotely. HISTORY: --Complains of heartburn, partially improved with medication. Worse at night. Has been ongoing for many years --Heartburn improved by 80% with PPI, but still has regurgitation --Currently on pantoprazole and famotidine. Takes pantoprazole before breakfast and right before dinner --Sleeps on an elevated bed PMH: Trigeminal neuralgia Migraines Medication: Zonisamide Amitriptyline Pantoprazole ALLERGIES Not on File REVIEW OF SYSTEMS: PAIN ASSESSMENT: Negative for pain, history of chronic pain, or current treatment for a chronic pain condition. GENERAL: No weight loss, malaise or fevers RESPIRATORY: Negative for cough, hemoptysis, wheezing, COPD, dyspnea or shortness of breath CARDIOVASCULAR: Negative for chest pain, leg swelling, hypertension, CHF or palpitations GI: see above MUSCULOSKELETAL: Negative for joint pain or swelling, back pain or muscle pain SKIN: Negative for lesions, rash, and itching ENDOCRINE: Negative for cold or heat intolerance, polyuria, polydipsia and goiter NEURO: No history of headaches, syncope, paralysis, seizures or tremors PHYSICAL FINDINGS OF NOTE: General - Normal, healthy, cooperative, in no acute distress Able to interact verbally by video conference Psych - ORIENTATION: normal to time place, person and situation Mood/Affect: AFFECT AND MOOD: Normal Head/Neuro - Normal size and shape Facial appearance normal Pulmonary - respiratory effort normal Cardiovascular - patient describes extremities normal, warm, no cyanosis,no clubbing, and no edema Abdominal - Not performed Skin - abnormal lesions not visualized Motor - patient seen sitting with Normal appearing strength and coordination IMPRESSION 53F with chronic GERD, partial improvement with PPI BID. Long chat about GERD including natural history and treatment options. Discussed the negative effects of surgery. Given her BMI ~35, the optimal antireflux surgery would actually be a millie en y gastric bypass RECOMMENDATION: --Switch PPI to esomeprazole 40mg BID. Stop famotidine --Return to clinic in 3 months. If symptoms persist, we can discuss further testing such as manometry and pH testing off PPI Mendez Lund MD [facility] 10-22-2023 History of Present illness Narrative NEW VIRTUAL CONSULT I had a virtual consult with Ms. Badillo today. Her local doctors have given her a diagnosis of GERD. This consult was requested by Dr Patton for an opinion regarding GERD , and my final recommendations will be communicated to the requesting health care provider by way of the shared medical record for internal providers or letter via the [employer] for external providers. I have communicated my name and active licensure. The patient's identity and physical location were verified at the time of this visit. Either the patient or their legal solar manufacturer's representative has been informed of the risks and benefits of -- and alternatives to -- treatment through a remote evaluation and consents to proceed with the evaluation remotely. HISTORY: --Complains of heartburn, partially improved with medication. Worse at night. Has been ongoing for many years --Heartburn improved by 80% with PPI, but still has regurgitation --Currently on pantoprazole and famotidine. Takes pantoprazole before breakfast and right before dinner --Sleeps on an elevated bed PMH: Trigeminal neuralgia Migraines Medication: Zonisamide Amitriptyline Pantoprazole ALLERGIES Not on File REVIEW OF SYSTEMS: PAIN ASSESSMENT: Negative for pain, history of chronic pain, or current treatment for a chronic pain condition. GENERAL: No weight loss, malaise or fevers RESPIRATORY: Negative for cough, hemoptysis, wheezing, COPD, dyspnea or shortness of breath CARDIOVASCULAR: Negative for chest pain, leg swelling, hypertension, CHF or palpitations GI: see above MUSCULOSKELETAL: Negative for joint pain or swelling, back pain or muscle pain SKIN: Negative for lesions, rash, and itching ENDOCRINE: Negative for cold or heat intolerance, polyuria, polydipsia and goiter NEURO: No history of headaches, syncope, paralysis, seizures or tremors PHYSICAL FINDINGS OF NOTE: General - Normal, healthy, cooperative, in no acute distress Able to interact verbally by video conference Psych - ORIENTATION: normal to time place, person and situation Mood/Affect: AFFECT AND MOOD: Normal Head/Neuro - Normal size and shape Facial appearance normal Pulmonary - respiratory effort normal Cardiovascular - patient describes extremities normal, warm, no cyanosis,no clubbing, and no edema Abdominal - Not performed Skin - abnormal lesions not visualized Motor - patient seen sitting with Normal appearing strength and coordination IMPRESSION 53F with chronic GERD, partial improvement with PPI BID. Long chat about GERD including natural history and treatment options. Discussed the negative effects of surgery. Given her BMI ~35, the optimal antireflux surgery would actually be a millie en y gastric bypass RECOMMENDATION: --Switch PPI to esomeprazole 40mg BID. Stop famotidine --Return to clinic in 3 months. If symptoms persist, we can discuss further testing such as manometry and pH testing off PPI Mendez Lund MD documented in this encounter [facility] 07-30-2023 Note Patient Education Ma terials Name: Cinthia Badillo Current Date: 07/30/2023 10:48:38 [facility] : 1970 The following sheet(s) are the Patient Education Leaflets for [facility] Breast Health: Breast Self-Awareness What is breast self-awareness? Breast self-awareness is knowing how your breasts normally look and feel. Your breasts change as you go through different stages of your life. So it?s important to learn what is normal for your breasts. Knowing about your breasts helps you spot any changes in them right away. Tell your healthcare provider about any changes. Why is breast self-awareness important? Many experts now say that women should focus on breast self-awareness instead of doing a breast self-examination (BSE). These experts include the [place] and the [place] [employer]nec[employer]. Some experts even advise not teaching women to do a BSE. That?s because research hasn?t shown a clear benefit to doing BSEs. Breast self-awareness is different than a BSE. It isn?t about following a certain method and schedule. It?s about knowing what's normal for your breasts. That way you can spot even small changes right away. If you see any changes, tell your healthcare provider. Changes to look for Call your healthcare provider if you find any changes in your breasts that worry you. These changes may be: ?A lump ?Nipple discharge other than breastmilk, especially if it's bloody ?Swelling ?A change in size or shape ?Skin changes, such as redness, thickening, or dimpling of the skin ?Swollen lymph nodes in the armpit ?Nipple problems, such as pain or redness If you find a lump Call your provider if you find lumpiness in one breast. Also call if you feel something different in the tissue or feel a definite lump. Sometimes lumpiness may be due to menstrual changes. But there may be reason for concern. Your provider may want to see you right away if you have: ?Nipple discharge that is bloody ?Skin changes on your breast, such as dimpling or puckering It?s okay to be upset if you find a lump. Be sure to call your provider right away. Remember that most breast lumps are benign. This means they are not cancer. ? 1119-0426 The [employer]. [address] [place] [address]. All rights reserved. This information is not intended as a substitute for professional medical care. Always follow your healthcare professional's instructions. Urology Kegel Exercises Kegel exercises don?t need special clothing or equipment. They?re easy to learn and simple to do. And if you do them right, no one can tell you?re doing them, so they can be done almost anywhere. Your healthcare provider, nurse, or physical therapist can answer any questions you have and help you get started. A weak pelvic floor The pelvic floor muscles may weaken due to aging, and vaginal childbirth, injury, surgery, chronic cough, or lack of exercise. If the pelvic floor is weak, your bladder and other pelvic organs may sag out of place. The urethra may also open too easily and allow urine to leak out. Kegel exercises can help you strengthen your pelvic floor muscles. Then they can better support the pelvic organs and control urine flow. How Kegel exercises are done Try each of the Kegel exercises described below. When you?re doing them, try not to move your leg, buttock, or stomach muscles: ?Contract as if you were stopping your urine stream. But do it when you?re not urinating. ?Tighten your rectum as if trying not to pass gas. Contract your anus, but don?t move your buttocks. ?You may place a finger or 2 in the vagina and squeeze your finger with your vagina to learn which muscles to tighten. Try to hold each Kegel for a slow count to 5. You probably won?t be able to hold them for that long at first. But keep practicing. It will get easier as your pelvic floor gets stronger. Eventually, special weights that you place in your vagina may be recommended to help make your Kegels even more effective. Visit your healthcare provider if you have difficulties doing Kegel exercises. Helpful hints Here are some tips to follow: ?Do your Kegels as often as you can. The more you do them, the faster you?ll feel the results. ?Pick an activity you do often as a reminder. For instance, do your Kegels every time you sit down. ?Tighten your pelvic floor before you sneeze, get up from a chair, cough, laugh, or lift. This protects your pelvic floor from injury and can help prevent urine leakage. ? 1133-5974 The [employer]. [address] [place] [address]. All rights reserved. This information is not intended as a substitute for professional medical care. Always follow your healthcare professional's instructions. [facility] 04-20-2023 History of Present illness Narrative Images [...] 2009 OVARY SURGERY 1991 Ovarian Resection - [place] Family History Family History Problem Relation Name [...] Zonia Pak DPM documented in this encounter [facility] 12-28-2022 Hospital Discharge instructions Patient Education [...] include: ?8 oz (237 mL) of milk, aokcbci-ushcpwmnymeh-bpxup milk, and calcium-fortifiedfruit juice. Calcium-fortified means that [...] ?Spinach (cooked), rhubarb, beets, sweet potatoes, and Kenyan chard. ?Peanuts. ?Potato chips, burundian fries, and baked potatoes with skin on. ?Nuts and nut products. ?Chocolate. If you regularly take a diuretic medicine, make sure to eat at least 1 or 2 servings of fruits or vegetables that are high in potassium each day. These include: ?Avocado. ?Banana. ?[place], prune, carrot, or tomato juice. ?Baked potato. [...] magnesium, fish oil, or vitamin B6. Take iada-iea-hrwpjjc and prescription medicines only as told by [...] Casseroles. Pizza. Lasagna. Frozen meals. Potato chips. Sierra Leonean fries. The items listed above may not [...] provider. Document Revised: 11/10/2021 Document Reviewed: 11/10/[address] Patient Education 2022 [employer]. Follow Up Care 07/07/2022 08:32:51 With:PATI DOHERTY, Anand Fonseca, URL Address: [facility] [address], [place] [address]- When:Within 1 Year(s) Comments:w/SERGIO [facility] 09-30-2022 Procedure note [facility] 08-15-2021 History and physi annie note Note Date/Time August 15, 2021 8:18a m [facility] [address] [place] [address] Gastroenterology H&P Signed Patient: Cinthia Badillo MR#: [id number] : 1970 Acct:[id number] Age/Sex: 51 / F Adm Date: 2 Loc: Room: [facility] Attending Dr: Luis M Juarez DO Copies [...] evaluation Documented By: Luis M Juarez Jr, DO 08/15/21 081 5 Signed By: <Electronically signed by Luis M Juarez Jr, DO> 08/15/21 0825 [facility] Work Phone: [phone] 390-760906-03-2022 [facility] Future Appointments Appointment Date:12/28/2022 02:45:00 PM Scheduled Provider:Anand LOPEZ MD Location:[facility] Future Appointments Appointment Date:01/07/2024 08:00:00 AM Scheduled Provider:[facility] Office [facility] evaluation note* Diagnosis Onset Date Resolution Status GERD (gastroesophageal reflux disease) acute Screening for colorectal cancer acute [facility] Work Phone: Evaluation noteNo assessment information available [facility] Work Phone: Evaluation note* Diagnosis Onychomycosis- Primary Dermatophytosis of nail Nail dystrophy Other specified disease of nail Pain in toes of both feet documented in this encounter [facility] HealthcareEvaluation note* Diagnosis Gastroesophageal reflux disease without esophagitis Esophageal reflux documented in this encounter [facility] HealthcareEvaluation note* Diagnosis Onset Date Resolution Status GERD (gastroesophageal reflux disease) acute [facility] Work Phone: Evaluation note* Diagnosis Gastroesophageal reflux disease, unspecified whether esophagitis present- Primary [facility] Diagnosis Gastroesophageal reflux disease without esophagitis- Primary Esophageal reflux BMI 32.0-32.9,adult Gastroesophageal reflux disease without esophagitis- Primary Esophageal reflux Obesity (BMI 30-39.9) Encounter for screening mammogram for malignant neoplasm of breast- Primary Pulmonary hypertension (CMS/HCC) Other chronic pulmonary heart diseases Gastroesophageal reflux disease without esophagitis Esophageal reflux Obesity (BMI 30-39.9) Other chest pain Gastroesophageal reflux disease without esophagitis- Primary Esophageal reflux Obesity (BMI 30-39.9) Gastroesophageal reflux disease without esophagitis- Primary Esophageal reflux Pulmonary hypertension, unspecified (CMS/HCC) Obesity (BMI 30-39.9) documented in this encounter [facility] HealthcareHistory and physical note Author Juani Blackwell [facility] September 30, 2022 8:25am Note Date/Time September 30, 2022 8:25 am [facility] [address] [place] [address] Gastroenterology H&P Signed Patient: Cinthia Badillo MR#: [id number] : 1970 Acct:[id number] Age/Sex: 52 / F Adm Date: 3 Loc: Room: Type: [facility] Attending Dr: Juani Blackwell MD Copies [...] <Electronically signed by Juani Blackwell MD> 09/30/22824 [facility] Work Phone: Hospital course Narrative No data available for this section [facility] Discharge instructions No data available for this section [facility] Additional Instructions DISCHARGE INSTRUCTIONS FOR [...] NOT operate machinery such as power tools, [employer], Accordwers, sewing machines, etc. for 24 hours. - [...] problems. -Follow up with PCP. -Office number [phone]. [facility] Work Phone: Progress note No data available for this section [facility] Chief Complaint and Reason for Visit Chief Complaint GERD, Screening GERD, Screening Reason for Visit GERD (gastroesophage al reflux disease) Screening for colorectal cancer Chief Complaint r20.2 g43.009 h53.9 Chief Complaint r20.2 g43.009 h53.9 N20.0 Left kidney stone K21.9 R11.10 Chief Complaint r20.2 g43.009 h53.9 N20.0 Left kidney stone K21.9 R11.10 Epigastric Pain, GERD, Hx of Esophagitis Chief Complaint acid reflex Reason for Visit GERD (gastroesophage al reflux disease) Family History No Family History Records Found [...] Active Kamilla Patton Primary Care Provider Active 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 Relationship Specialty Start Date End Date Nishant Aguilar MD [address] [place] [phone] PCP - General Family Medicine 03/10/23 Kamilla Patton NP [address] [place] [phone] Nurse Practitioner Family Medicine 03/10/23 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 Relationship Specialty Start Date End Date Nishant Aguilar MD [address] [place] [phone] PCP - General Family Medicine 03/10/23 Kamilla Patton NP [address] [place] [phone] Nurse Practitioner Family Medicine 03/10/23 Team Status: Inactive Member Role Status Dates Kamilla Patton Primary Care Provider Active Sta rt: July 07, 2023 End: July 07, 2023 Juani Blackwell MD Attending Provider Active Start: July 07, 2023 End: July 07, 2023 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 Relationship Specialty Start Date End Date Kamilla Patton Referring 09/27/23 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 Relationship Specialty Start Date End Date Nishant Aguilar MD [address] [place] [phone] PCP - General Family Medicine 05/17/23 Kamilla Patton NP [address] [place] [phone] Nurse Practitioner Family Medicine 03/10/23 Jerica Zhu MD [address] [address] Referring Physician Neurology 06/23/23 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 Relationship Specialty Start Date End Date Nishant Aguilar MD [address] [place] [phone] PCP - General Family Medicine 05/17/23 Kamilla Patton NP [address] [place] [phone] Nurse Practitioner Family Medicine 03/10/23 Jerica Zhu MD [address] [address] Referring Physician Neurology 06/23/23 Goals (unrecognized section and content) Goals may be documented in a n alternate sectionGoals may be documented in an alternate section No data available for this sectionGoals may be documented in an alternate section No data available for this section No data available for this sectionGoals may be documented in an alternate section INFORMATION SOURCE (unrecogn ized section and content) DATE CREATED AUTHOR 08/24/2022 [facility] DATE CREATED AUTHOR AUTHOR'S ORGANIZ ATION 10/02/2022 [facility] DATE CREATED AUTHOR AUTHOR'S ORGANIZ ATION 04/18/2023 [facility] DATE CREATED AUTHOR AUTHOR'S ORGANIZ ATION 08/04/2023 [facility] DATE CREATED AUTHOR AUTHOR'S ORGANIZ ATION 10/25/2023 [facility] DATE CREATED AUTHOR AUTHOR'S ORGANIZ ATION 12/29/2023 [facility] dical Specialists [facility] DATE CREATED AUTHOR AUTHOR'S ORGANIZ ATION 01/10/2024 [facility] Reason for Visit (unrecogniz ed section and content) Reason Comments Follow-up Established pt prese nts today for 4 month lamisil fuv. Pt states she hasn't noticed much of a difference in her nails. Used topical medication as well. Reason Comments GERD Specialty Diagnoses / Procedures Referred By Contac t Referred To Contact Gastroenterology Diagnoses Gastroesophageal reflux disease without esophagitis Procedures OFFICE/OUTPATIENT [facility] 60 MINUTES AMB REFERRAL TO GASTROENTEROLOGY Kamilla Patton, CLOTHES DRIER ASSEMBLER [address] [place] [address] Mendez Lund MD [address] [place] [address] Referral ID Status Reason Start Date Expiration Date V isits Requested Visits Authorized [id number] Outside PCP 09/23/2023 03/21/2024 1 1 Source Comments (unrecognize d section and content) In the event this informatio n is protected by the Federal Confidentiality of Alcohol and Drug Abuse Patient Records regulations: The Federal rules restrict any use of the information to criminally investigate or prosecute any alcohol or drug abuse patient.[facility] FOR RECORDS PERTAINING TO PATIENTS WHO ARE [...] BE BASED ON THE PRIMARY CLINICAL RECORDS. [employer] [facility]. provides no warranty or guarantee of the accuracy or completeness of information in this document.
== END 2024-01-15 12:27 | disposition home or self-care (01) ==
LOC: RAD 12:27
PROVIDERS: PCP Nurse Practitioner; Visit Provider Urology
DX: N20.0 Calculus of kidney (principal)
CPT/HCPCS: 74018

== ENCOUNTER 2024-01-21 07:07 | Outpatient (OUT) | payer BC, SELFPAY ==
--- NOTE | 2024-01-21 07:09 | MM_ITS ---
Patient Name: MICHELLE BADILLO MR#: [id number] : 1970 Exam Date: 01/21/2024 Ordering Doctor: ZELALEM Patton CNP RADIOLOGY REPORT PROCEDURE: MM TOMOSYNTHESIS SCREENING BI COMPARISON: MG MAMM SCREEN 3D LEE CAD, 06/16/2022. MG MAMM SCREEN 3D LEE CAD, 03/26/2021. MG MAMM SCREEN 3D LEE CAD, 05/01/2019. MG MAMM SCREEN LEE W CAD, 10/10/2014. INDICATIONS: Screening Calculator Name NCI Breast Cancer Risk Assessment Tool 5 Year Breast Cancer Risk 0.90% Lifetime Breast Cancer Risk 7.10% Personal Breast Cancer No Personal Ovarian Cancer No Treatments None Family Cancers Grandmother-maternal with breast cancer at age 79. LOCATION: [facility] BREAST COMPOSITION: There are scattered areas of fibroglandular density. FINDINGS: DIAGNOSTIC CATEGORY 1--NEGATIVE. RIGHT BREAST: No significant suspicious finding. No significant change has occurred. LEFT BREAST: No significant suspicious finding. No significant change has occurred. RECOMMENDATIONS: ROUTINE MAMMOGRAM AND CLINICAL EVALUATION IN 12 MONTHS. PLEASE NOTE: A NORMAL MAMMOGRAM DOES NOT EXCLUDE THE POSSIBILITY OF BREAST CANCER. A CLINICALLY SUSPICIOUS PALPABLE LUMP SHOULD BE BIOPSIED. Dictated by: Bismark Morris M.D. on 01/21/2024 at 11:04 Approved by: Bismark Morris M.D. on 01/21/2024 at 11:06
== END 2024-01-21 07:08 | disposition home or self-care (01) ==
LOC: MAMMO 07:07
PROVIDERS: PCP Nurse Practitioner; Visit Provider Nurse Practitioner
DX: Z12.31 Encounter for screening mammogram for malignant neoplasm of breast (principal); Z80.3 Family history of malignant neoplasm of breast
CPT/HCPCS: 77063; 77067

== ENCOUNTER 2024-04-15 09:02 | Outpatient (OUT) | payer BC, SELFPAY ==
--- OUTSIDE RECORDS SUMMARY | 2024-04-15 09:05 | XMS_ITS | CCD ---
Author Organization [facility] Care Team Providers Care Field Operations Technician Name Role Phone DO Larry Luis M Montano Attending Provider NON STAFF Primary Care Provider Unavaildina e NON STAFF Primary Care Provider Unavaildina e TISHA Pace- Mohsen Attending Provider MD Anand Krueger Attending Provider [phone] AICHHOLZ, KAMILLA J Primary Care Physician PATI ., DR MICHEL Attending Unavailable KRUEGER ., DR MICHEL Consulting Unavailable AICHHOLZ, RECOOPERER KAMILLA Primary Care Unavailable KRUEGER ., DR MICHEL Admitting Unavailable GALVEZ, IZZY Consulting Unavailable KRUEGER ., DR MICHEL Consulting Unavailable AICHHOLZ, RECOOPERER KAMILLA Primary Care Unavailable KRUEGER ., DR MICHEL Admitting Unavailable KRUEGER ., DR MICHEL Attending Unavailable ZIEBBETI, DR JERICA Fonseca Consulting Unavailable VICTORINO, KYLE Consulting Unavailable MARY ANN II, GEOVANNI Consulting Unavailable KRUEGER ., DR MICHEL Attending Unavailable AICHHOLZ, RECOOPERER KAMILLA Primary Care Unavailable KRUEGER ., DR MICHEL Admitting Unavailable AICHHOLZ, RECOOPERER KAMILLA Admitting Unavailable AICHHOLZ, RECOOPERER KAMILLA Attending Unavailable AICHHOLZ, RECOOPERER KAMILLA Consulting Unavailable AICHHOLZ, RECOOPERER KAMILLA Primary Care Unavailable ZIEBBETI, DR JERICA Fonseca Consulting Unavailable AICHHOLZ, RECOOPERER KAMILLA Admitting Unavailable AICHHOLZ, RECOOPERER KAMILLA Attending Unavailable AICHHOLZ, RECOOPERER KAMILLA Consulting Unavailable AICHHOLZ, RECOOPERER KAMILLA Primary Care Unavailable FAWWAD, STEELE H Admitting Unavailable FAWWAD, STEELE H Attending Unavailable FAWWAD, STEELE H Consulting Unavailable AICHHOLZ, RECOOPERER KAMILLA Primary Care Unavailable KRUEGER ., DR MICHEL Attending Unavailable KRUEGER ., DR MICHEL Consulting Unavailable AICHHOLZ, RECOOPERER KAMILLA Primary Care Unavailable KRUEGER ., DR MICHEL Admitting Unavailable ZIEBER, DR JERICA Fonseca Consulting Unavailable AICHHOLZ, RECOOPERER KAMILLA Primary Care Unavailable AICHHOLZ, RECOOPERER KAMILLA Admitting Unavailable AICHHOLZ, RECOOPERER KAMILLA Attending Unavailable AICHHOLZ, RECOOPERER KAMILLA Consulting Unavailable KRUEGER ., DR MICHEL Admitting Unavailable KRUEGER ., DR MICHEL Consulting Unavailable AICHHOLZ, RECOOPERER KAMILLA Primary Care Unavailable KRUEGER ., DR MICHEL Attending Unavailable WEST, DR LUIS M Bustos Consulting Unavailable AICHHOLZ, RECOOPERER KAMILLA Primary Care Unavailable WEST, DR LUIS M Bustos Consulting Unavailable AICHHOLZ, RECOOPERER KAMILLA Admitting Unavailable AICHHOLZ, RECOOPERER KAMILLA Attending Unavailable AICHHOLZ, RECOOPERER KAMILLA Consulting Unavailable KRUEGER ., DR MICHEL Consulting Unavailable AICHHOLZ, RECOOPERER KAMILLA Primary Care Unavailable KRUEGER ., DR MICHEL Admitting Unavailable KRUEGER ., DR MICHEL Attending Unavailable NO FAMILY, PHYSICIAN Primary Care Provider Unava ilable MD Rishi Imad Attending Provider Mohsen Pace Admitting Unavailable Mohsen Pace Attending Unavailable NON STAFF Primary Care Unavailable Anand Krueger Admitting Unavailable Anand Krueger Attending Unavailable NO FAMILY, PHYSICIAN Primary Care Unavailable Asaad, Imad Attending Unavailable NO FAMILY, PHYSICIAN Primary Care Unavailable Asaad, Imad Admitting Unavailable Asaad, Imad Attending Unavailable Aichholz, Kamilla J Primary Care Unavailable Asaad, Imad Admitting Unavailable Aichholz, Kamilla J Primary Care Provider ISABELLE BARRIOS Referring Unavailable ISABELLE BARRIOS Primary Care Unavailable Aichholz SWITCHGEAR REPAIRER, Kamilla Unavailable Nishant Aguilar MD Primary Care Provider James FU, Kristine Patten Attending Phyllis vailable Aichholz BIOFUELS PRODUCTION MANAGER-RECOOPERER, Kamilla Humera Primary Care Unava ilable James FU, Kristine Patten Attending Phyllis vailable Aichholz BIOFUELS PRODUCTION MANAGER-RECOOPERER, Kamilla Humera Primary Care Unava ilable James FU, Kristine Patten Attending Phyllis vailable Aichholz, Kamilla Unavailable Unavailable AICHHOLZ, KAMILLA HUMERA Referring Unavailable MENDEZ LUND Attending Unavailable Aichholz SWITCHGEAR REPAIRER, Kamilla Unavailable Nishant Aguilar MD Primary Care Provider Jerica Zhu MD Unavailable WINDNAGEL, MOHSEN Referring Unavailable WINDNAGEL, MOHSEN Attending Unavailable WINDNAGEL, MOHSEN Admitting Unavailable Sena Carias Attending Unavailable ZONIA PAK Attending Unavailable ABDI, KAMILLA Attending Unavailable BISIHHOLFrancheska, KAMILLA Attending Unavailable BISIHHOLZ, KAMILLA Attending Unavailable WINDNANATAN, MOHSEN C Attending Unavailable ABDI, KAMILLA Attending Unavailable ABDI, KAMILLA Attending Unavailable Allergies Allergy Classification Reported Allergen(s) Allergy Type Date of Onset Reaction(s) Facility (20 sources) Penicillins; Translations: [Penicillins] Allergy to substance 07-14-2017 [facility] (6 sources) Penicillin; Translations: [penicillin] Drug Allergy Unknown [facility] Medications Current Medications Medication Drug Class(es) Dates Sig (Normalized) Sig (Original) Acidophilus Probiotic Blend (4 sources) Start: 06-22-2022 Acidophilus Probiotic Blend Oral, Daily, Refill(s) 0 Start Date: 06/22/22 Status: Ordered amitriptyline hydrochloride 50 mg oral tablet (20 sources) Tricyclic Antidepressant Start: 04-30-2023 End: 11-09-2024 take 1 tablet by mouth [...] 12:00am September 28, 2022 1:19pm Ascorbic Acid (4 sources) Vitamin C Start: 06-22-2022 Vitamin C Daily, Refills(s) 0 Start Date: 06/22/22 Status: Ordered Cranberry preparation (4 sources) Non-Standardized Food Allergenic Extract, Non-Standardized Plant [...] and dinner 180 capsule 3 10/22/2023 Active Pam Root (1 source) Start: 01-18-2024 Pam Root Pam Root Start Date: 01/18/24 Status: Ordered Melatonin (4 sources) Start: 06-22-2022 Melatonin Once a day (at bedtime), Refills(s) 0 Start Date: 06/22/22 Status: Ordered Multivitamin preparation (4 sources) Start: 06-22-2022 multivitamin Daily, Refill(s) 0 Start Date: 06/22/22 Status: Ordered Bailey-3 oral capsule (4 sources) Start: 06-22-2022 Bailey-3 oral capsule Refill(s) 0 Start Date: 06/22/22 Status: Ordered terbinafine 250 mg oral tablet (2 sources) Allylamine Antifungal Start: 12-28-2022 terbinafine 250 mg Tab Refills(s) 0 Start Date: 12/28/22 Status: Ordered traZODone hydrochloride 50 mg oral tablet (1 source) Serotonin Reuptake Inhibitor Start: 06-22-2022 traZODONE 50 mg Tab Refills(s) 0 Start Date: 06/22/22 Status: Ordered Viactiv Soft Calcium Chews (4 sources) Start: 06-22-2022 Viactiv Soft Calcium Chews Refill(s) 0 Start Date: 06/22/22 Status: Ordered zonisamide 25 mg oral capsule (20 sources) Anti-epileptic Agent Start: 07-27-2023 End: 11-09-2024 take 1 capsule by mouth [...] before bedtime. 0 12/12/2022 Active Start: 11-23-2022 End: 11-10-2023 take 1 capsule by mouth twice daily zonisamide (Zonegran) 25 MG capsule Indications: Nonintractable headache, unspecified chronicity pattern, unspecified headache type TAKE 1 CAPSULE BY MOUTH TWICE DAILY WITH 50 MG CAPS TO EQUAL 75 MG 180 capsule 3 11/10/2023 Active Start: 09-28-2022 take 50 mg by mouth twice daily Zonisamide Active 50 MG PO Twice daily September 28, 2022 12:00am Completed/Discontinued Medications Medication Drug Class(es) Dates Sig (Normalized) Sig (Original) famotidine 20 mg oral tablet (8 sources) Histamine-2 Receptor Antagonist Start: 09-20-2023 End: [...] Refills(s) 0 Start Date: 12/28/22 Status: Ordered pantoprazole 40 mg delayed release oral tablet (20 sources) Proton Pump Inhibitor Start: 09-28-2022 End: 07-07-2023 take 1 tablet by mouth in the morning pantoprazole (ProtoNix) 20 MG EC tablet Indications: Gastroesophageal reflux disease without esophagitis Take 1 tablet (20 mg) by mouth in the morning and 1 tablet (20 mg) before bedtime. 60 tablet 1 04/28/2023 05/28/2023 Active Start: 06-22-2022 End: 06-27-2024 take 1 tablet by mouth in the morning pantoprazole (ProtoNix) 40 MG EC tablet Indications: Gastroesophageal reflux disease without esophagitis Take 1 tablet (40 mg) by mouth in the morning and 1 tablet (40 mg) before bedtime. Take 40 mg by mouth in the morning and 40 mg before bedtime.. 60 tablet 2 02/23/2024 03/29/2024 Discontinued (Reorder) Start: 08-15-2021 End: 09-28-2022 take 40 mg by mouth once daily Pantoprazole Discontinued 40 MG PO Daily August 15, 2021 12:00am September 28, 2022 1:20pm Problems Active Problems Problem Classification Problem Date Documented Date Episodic/Chronic Abdominal pain (9 sources) Left flank pain; Translations: [Unspecified abdominal pain] Onset: 06-03-2022 06-22-2022 Episodic Asthma (5 sources) Asthma; Translations: [Unspecified asthma, uncomplicated] Onset: 08-10-2022 06-22-2022 Chronic Biliary tract disease (4 sources) Gallstone 06-22-2022 Episodic Calculus of urinary tract (12 sources) Kidney stone; Translations: [Calculus of kidney] Onset: 07-29-2022 06-22-2022 Episodic Esophageal disorders (20 sources) Gastroesophageal reflux disease; Translations: [Gastro-esophageal reflux disease without esophagitis] Onset: 09-29-2017 08-15-2021 Chronic Esophageal disorders (1 source) Esophageal disorders; Translations: [Gastro-esophageal reflux disease without esophagitis] Onset: 08-31-2022 Headache; including migraine (9 sources) Migraine without aura, not refractory ; Translations: [Migraine without aura, not intractable, without status migrainosus] Onset: 11-04-2023 11-04-2023 Chronic Mycoses (2 sources) Onychomycosis; Translations: [Tinea unguium] 04-20-2023 Episodic Osteoarthritis (5 sources) Arthritis; Translations: [Unspecified osteoarthritis, unspecified site] [...] Episodic Other nutritional; endocrine; and metabolic disorders (20 sources) Body mass index 30+ - obesity; Translations: [Body mass index (BMI) 32.0-32.9, adult] Onset: 03-18-2023 Resolved: 05-17-2023 03-18-2023 Chronic Other nutritional; endocrine; and metabolic disorders (5 sources) Obesity caused by energy imbalance; Translations: [Morbid (severe) obesity due to excess calories] Onset: 03-29-2024 03-29-2024 Chronic Other skin disorders (2 sources) Dystrophia unguium; Translations: [Nail dystrophy] 04-20-2023 Episodic Pulmonary heart disease (13 sources) Pulmonary hypertension; Translations: [Pulmonary hypertension, unspecified] Onset: 07-05-2023 12-27-2023 Chronic Residual codes; unclassified (1 source) Idiopathic sleep related nonobstructive alveolar hypoventilation; Translations: [Idiopathic sleep related nonobstructive alveolar hypoventilation] Onset: 04-06-2023 Chronic Residual codes; unclassified (18 sources) Hypoxia; Translations: [Idiopathic sleep related nonobstructive alveolar hypoventilation] Onset: 07-19-2023 07-19-2023 Chronic Residual codes; unclassified (9 sources) Hypersomnia; Translations: [Hypersomnia, unspecified] Onset: 11-04-2023 11-04-2023 Chronic Residual codes; unclassified (1 source) Family history of malignant neoplasm of breast; Translations: [FAMILY HX MALIG NEOPLASM OF BREAST] Onset: 06-20-2022 Episodic Unclassified (3 sources) CONTACT W/AND (SUSP) EXPOS COVID-19; Translations: [CONTACT W/AND (SUSP) EXPOS COVID-19] Onset: 12-25-2021 Past or Other Problems Problem Classification Problem Date Documented Da te Episodic/Chronic Headache; including migraine (2 sources) Headache; Translations: [Nonintractable headache, unspecified chronicity pattern, unspecified headache type] 11-10-2023 Episodic Nonspecific chest pain (10 sources) Chest pain, unspecified; Translations: [Chest pain] Onset: 07-12-2022 07-05-2023 Episodic Other nervous system disorders (9 sources) Paresthesia; Translations: [Paresthesia of skin] Onset: 11-04-2023 11-04-2023 Episodic Other nervous system disorders (2 sources) Trigeminal neuralgia; Translations: [Trigeminal neuralgia] 11-10-2023 Episodic Other screening for suspected conditions (not mental disorders or infectious disease) (20 sources) Patient encounter status; Translations: [Encounter for screening for malignant neoplasm of colon] Onset: 06-16-2022 08-15-2021 Episodic Other upper respiratory infections (1 source) Acute upper respiratory infection, unspecified; Translations: [ACUTE UP RESPIRATORY INFECTION UNS] Onset: 12-25-2021 Episodic Pancreatic disorders (not diabetes) (12 sources) Pancreatitis; Translations: [Acute pancreatitis without necrosis or infection, unspecified] Onset: 09-26-2017 Resolved: 05-17-2023 12-18-2022 Episodic Residual codes; unclassified (9 sources) Disturbance in sleep behavior; Translations: [Sleep disorder, unspecified] Onset: 11-04-2023 11-04-2023 Episodic Unclassified (1 source) CONTACT W/AND (SUSP) EXPOS COVID-19; Translations: [CONTACT W/AND (SUSP) EXPOS COVID-19] Onset: 12-22-2021 Results Test Name Value Interpretation Reference Range Facility Ambulatory Visit Summaryon 1 03-19-2023 Ambulatory Visit Summary Ambulatory Visit Summary CINTHIA BADILLO :1970 Visit Date:01/18/2024 Ambulatory Visit Instructions Your Diagnosis Kidney stone Tests Performed XR Abdomen 1 View -- Results Pending -- Please visit your patient portal for your results or contact your primary care physician. Your Care Team Attending Physician - GENNA Carias APRN, Sena Ames Primary Care Physician - KAMILLA PATTON CNP This Is Your Medications List Non-Formulary Medication (Pam Root) Contact prescribing physician if questions or concerns amitriptyline (amitriptyline 50 mg Tab) ascorbic acid (Vitamin C) cranberry (Cranberry) lactobacillus acidophilus (Acidophilus Probiotic Blend) melatonin (Melatonin) multivitamin multivitamin with minerals (Viactiv Soft Calcium Chews) omega-3 polyunsaturated fatty acids (Bailey-3 oral capsule) pantoprazole (Pantoprazole [address] Tab) zonisamide (zonisamide 25 mg Cap) zonisamide (zonisamide 50 mg Cap) Procedures Performed Rigid cystoscopy (08/13/2022), ESWL of kidney (07/02/2022), Cholecystectomy, Hysterectomy. Discharge Vitals Heart Rate (Peripheral) 79 Blood Pressure 125/80 Height 165 cm Height 65 in Weight 91.6 kg Weight 201.52 lb BMI 33.65 What to do next You Need to Schedule the Following Appointments Follow Up with Aretha SHARPE, EMY-C, Sena X, FAM, URL When: Medications What How Much When Instructions Unchanged Non-Formulary Medication (Pam Root) Unchanged amitriptyline (amitriptyline 50 mg Tab) Contact prescribing physician if [...] or concerns Unchanged omega-3 polyunsaturated fatty acids (Bailey-3 oral capsule) Contact prescribing physician if questions or concerns Unchanged pantoprazole (Pantoprazole [address] Tab) Contact prescribing physician if questions or concerns Unchanged zonisamide (zonisamide 25 mg Cap) Contact prescribing physician if questions or concerns Unchanged zonisamide (zonisamide 50 mg Cap) Contact prescribing physician if questions or concerns Allergies penicillin (Unknown) Problems Ongoing - Any problem that you are currently receiving treatment for. Arthritis Asthma Gallstones Gastroesophageal reflux disease Kidney stone Left flank pain Patient Survey You may receive a survey via text or e-mail asking about your office visit. Please share your experience with us by completing your survey. We appreciate your feedback and thank you for choosing us for your care. Education Materials Kidney Stones Kidney stones are rock-like masses that form inside of the kidneys. Kidneys are organs that make pee (urine). A kidney stone may move into other parts of the urinary tract, including: ??? The tubes that connect the kidneys to the bladder (ureters). ??? The bladder. ??? The tube that carries urine out of the body (urethra). Kidney stones can cause very bad pain and can block the flow of pee. The stone usually leaves your body through your pee. A doctor may need to take out the stone. What are the causes? Kidney stones may be caused by: ??? Too much calcium in the body. This may be caused by too much parathyroid hormone in the blood. ??? Uric acid crystals in the bladder. The body makes uric acid when you eat certain foods. ??? Narrowing of one or both of the ureters. ??? A kidney blockage that you were born with. ??? Past surgery on the kidney or the ureters. What increases the risk? You are more likely to develop this condition if: ??? You have had a kidney stone in the past. ??? Other people in your family have had kidney stones. ??? You do not drink enough water. ??? You eat a diet that is high in protein, salt (sodium), or sugar. ??? You are very overweight (obese). What are the signs or symptoms? Symptoms of a kidney stone may include: ??? Pain in the side of the belly, right below the ribs. Pain usually spreads to the groin. ??? Needing to pee often or right away. ??? Pain when peeing. ??? Blood in your pee. ??? Feeling like you may vomit (nauseous). ??? Vomiting. ??? Fever and chills. How is this treated? Treatment depends on the size, location, and makeup of the kidney stones. The stones will often pass out of the body when you pee. You may need t (more content not included)... Normal [facility] Reminderson 01-18-2024 Reminders Reminders From: Carin Almanzar To: EU - Administrative; Sent: 01/18/2024 15:56:07 EST Show up: 07/13/2024 15:56:00 EDT Subject: 1 yr f/u Due Date/Time: 01/13/2025 15:55:00 EDT Reminder/Recall Patient needs scheduled with AO for a 1 yr f/u with KUB Normal Garcia [facility] Urology Office/Clinic Noteon 01-18-2024 Urology Office/Clinic Note Urology Office/Clinic Note Chief Complaint 1yr f/u KUB HPI Staff 53yr old female pt here for 1yr w/ KUB. Previous Dx: kidney stone Dysuria: denies Incomplete bladder emptying: denies Hematuria: denies Frequency: depends on fluid intake, every 1-2hrs in the morning due to drinking coffee, then goes less frequently Urgency: denies Nocturia: sometimes, not every day, will wake up 1x Stream: good stream Leaking: denies Post void dripping: denies Wearing pads/ Depends: denies Urge incontinence: denies Stress incontinence: denies Incontinence without Sensory Awareness: denies Abdominal pain: denies Flank pain: occasionally will have discomfort on left side, where previous kidney stone was, otherwise no Sexual complaints: History of Present Illness I have reviewed and verified the staff HPI to be accurate for this encounter. Portions of this record may have been created with voice recognition artificial intelligence software, specifically [employer], [employer] and or [employer]. Substitutions may have occurred due to the inherent limitations of voice recognition and artificial intelligence software. Review of Systems PHQ Score Initial Depression Screen Score: 0 SCORE Physical Exam Vitals & Measurements HR: 79(Peripheral) BP: 125/80 HT: 65 in HT: 165 cm WT: 91.6 kg WT: 201.52 lb BMI: 33.65 Assessment/Plan PRW pt 1. Kidney stone (N20.0: Calculus of kidney) CT AP w con 06/03/22 [facility] - Nonobstructing 7 mm left nephrolithiasis. KUB 06/20/22 [facility] - Left 9 mm stone. S/p L ESWL 07/02/22 Stone analysis done 07/06/22 - CaOx [place] 80% & CaOx [place] 20% KUB 07/29/22 - grossly stable Lt Nephrolithiasis S/p Cysto/L URS/L stone basket extraction 08/13/22 Stone Analysis 08/14/22 - CaOx [place] 90% & CaOx [place] 10% KUB 12/26/22 - no stones noted. [1] KUB 01/15/2024 with possible tiny calcification projecting over inferior pole of the left kidney. Discussed imaging results with patient. She does endorse some intermittent, random left-sided pain which she admits was present prior to her original stone procedure. Discussed not likely urologic in nature. Follow-up with PCP regarding this if symptoms become more bothersome. Discussed generalized stone prevention - pt encouraged to increase fluid intake so that he/she producing 2.5L of urine daily. Add 1/4 cup of lemon juice to water throughout the day or can also drink sugar free lemonade or clear soda. Avoid dark sweetie. Restrict sodium intake. Restrict animal protein. Patient drinking approximately 3-4 bottles of water, 1 cup of coffee, possibly 1 can of clear pop daily. Discussed need for significant increase in her fluid intake. UA today without signs of blood or infection. -Increase fluid intake -Follow-up 1 year w/ PIOTR with KUB Ordered: Body Mass Index (BMI) documented 3008F Current tobacco non-user 1036F Depression Screening Negative 3352F Influenza immunization status assessed 1030F Medication list documented in medical record 1159F Most recent diastolic blood pressure <80 mm Hg 3078F Review of all meds by a prescribing practitioner or clinical pharmacist documented in EHR 1160F Systolic BP <130 mm Hg (Most Recent) 3074F Urnls Dip Stick Auto w/o Microscopy POC 87070 Follow-up With When Contact Information Orzech BIOFUELS PRODUCTION MANAGER, EXECUTIVE PRODUCER-C, Sena X, FAM, URL Additional Instructions: Patient Education Kidney Stones, [id number] Dietary Guidelines to Help Prevent Kidney Stones Problem List/Past Medical History Ongoing Arthritis Asthma Gallstones Gastroesophageal reflux disease Kidney stone Left flank pain Historical No qualifying data Procedure/Surgical History Rigid cystoscopy (08/13/2022), ESWL of kidney (07/02/2022), Cholecystectomy, Hysterectomy. Medications Acidophilus Probiotic Blend, Oral, Daily amitriptyline 50 mg Tab Cranberry Pam Root Melatonin, Once a day (at bedtime) multivitamin, Daily Bailey-3 oral capsule Pantoprazole [address] Tab Viactiv Soft Calcium Chews Vitamin C, Daily zonisamide 25 mg Cap zonisamide 50 mg Cap Allergies penicillin (Unknown) Social History Alcohol Current. Wine. 1-2 times per month., 01/17/2024 Substance Abuse Never., 01/17/2024 Tobacco Never (less than 100 in lifetime) Tobacco Use:. Household tobacco concerns: No. Yes, 01/18/2024 Family History Family history is negative Immunizations Vaccine Date Status Comments influenza, unspecified formulation 12/27/2022 Recorded SARSCoV2 mRNA(dnbgtnfxr-hotw-kojflz) vac 10/09/2021 Recorded SARS-CoV-2 (COVID-19) mRNA BNT-162b2 vax 02/13/2021 Recorded SARS-CoV-2 (COVID-19) mRNA BNT-162b2 vax 05/08/2020 Recorded 2022-06-22: TPV40 SARS-CoV-2 (COVID-19) mRNA BNT-162b2 vax 04/06/2020 Recorded 2022-06-22: TPV40 SARS-CoV-2 (COVID-19) mRNA BNT-162b2 vax 04/02/2020 Recorded 2022-06-22: TPV40 diphtheria/pertussis, acel/tetanus adult 07/17/2009 Recorded Lab Results Ambulatory Point of Car (more content not included)... [facility] Comment on above: Result Comment: Elec tronically Signed By: GENNA Carias APRN, Sena Ames\.br\Date and Time Signed: 01/18/24 15:57 EST Provider Letteron 11-29-2023 Provider Letter Provider Letter November 29, 2023 CINTHIA [address] [place] [address] : 1970 Dear Cinthia, We have been trying to reach you with no success. You have an appointment with Dr. Anand Krueger on 01/07/2024 which will need to be rescheduled since he will be out of the office that day. Please contact the office at the number listed below to get this appointment rescheduled at your earliest convenience. Thank you for your prompt attention to this matter. Sincerely, [facility] [address], [address] [address] [facility] Gynecology Office/Clinic Not logan 08-02-2023 Gynecology Office/Clinic Note Chief Complaint Annual [...] years. BD: na Labs: PCP Marcia Cabrera RECOOPERER Neuro: Dr Stubbs Trigeminal neuralgia GI: has [...] multivitamin, D (more content not included)... Normal [facility] Neurology Forms- [employer] Neurology Forms- Text [id number] [facility] Consent for Treatmenton Consent for Treatment [id number] [facility] Blu 09-30-2022 L ------- Specimen: [id number] Received: 09/30/22 Status: RAYMUNDO Martinez Num: [id number] Spec Type: Surgical Subm Dr: Juani Blackwell MD Tissues: A Duodenum - Biopsy (DUODENUM BX) B GASTRIC FOR HP (GASTRIC) C Gastric Biopsy (GASTRIC POLYP) Procedures: HE/6, Gross/Micro L4/3, H PYLORI Age/ Patient Sex Location Account Attending Physician Cinthia Badillo 52/F [id number] Juani Blackwell MD SPEC NUM: [id number] RECD: 09/30/22 STATUS: RAYMUNDO MARTINEZ NUM: [id number] TETE: 09/30/22 DR: Juani Blackwell MD ENTERED: 09/30/[address] [facility] [address]: SPEC TYPE: Surgical DEPT: S ORDERED: [...] out celiac, rule out H. pylori Specimen: [id number] Received: 09/30/22 Status: RAYMUNDO Martinez Num: [id number] Spec Type: Surgical Subm Dr: Juani Blackwell MD Tissues: A Duodenum - Biopsy (DUODENUM BX) B GASTRIC FOR HP (GASTRIC) C Gastric Biopsy (GASTRIC POLYP) Procedures: HE/6, Gross/Micro L4/3, H PYLORI Patient: Cinthia Badillo [id number] (Continued) Specimen: [id number] Received: 09/30/22 (Continued) Signed (signature on file) Justo Sher MD 10/01/22 1050 Specimen: [id number] Received: 09/30/22 Status: RAYMUNDO Martinez Num: [id number] Spec Type: Surgical Subm Dr: Juani Blackwell MD Tissues: A Duodenum - Biopsy (DUODENUM BX) B GASTRIC FOR HP (GASTRIC) C Gastric Biopsy (GASTRIC POLYP) Procedures: , Gross/Micro L4/3, H PYLORI Patient: Cinthia Badillo [id number] (Continued) Specimen: [id number] Received: 09/30/22-899 (Continued) Gross Description A. Received in formalin [...] microscopic examination confirms the diagnosis. CPT Codes 61535 x 3 Specimen: [id number] Received: 09/30/22 Status: RAYMUNDO Martinez Num: [id number] Spec Type: Surgical Subm Dr: Juani Blackwell MD Tissues: A Duodenum - Biopsy (DUODENUM BX) B GASTRIC FOR HP (GASTRIC) C Gastric Biopsy (GASTRIC POLYP) Procedures: HE/6, Gross/Micro L4/3, H PYLORI Patient: Cinthia Badillo [id number] (Continued) Signed (signature on file) Justo Sher MD 10/01/22 1050 Normal [facility] NM gastric emptying studyon 08-31-2022 NM gastric emptying study [facility] [place] [address] Nuclear Medicine Report Signed Patient: Cinthia Badillo MR#: [id number] : 1970 Acct:[id number] Age/Sex: 52 / F ADM Date: 08/31/22 Loc: OR Room: Type: [facility] Attending Dr: Juani Blackwell MD Copies [...] Anabela Greer M.D.08/31/2022 9:37 AM Dictation Location: [place] [address] Transcribed By: [facility] 08/31/22 0937 Dictated By: Anabela Greer MD 08/31/22 0936 Signed By: 08/31/22 0937 Normal [facility] Ammonium urate crystals dete ction in stone by infrared spectroscopyOrdered By: Anand Krueger on 08-13-2022 Ammonium urate crystals Infrared spectroscopy Ql (Stone) N/A [facility] Calcium bilirubinate measure mentOrdered By: Anand Krueger on 08-13-2022 Calcium bilirubinate (Stone) [Mass fraction] N/A [facility] Calcium carbonate measuremen tOrdered By: Anand Krueger on 08-13-2022 Calcium carbonate (Stone) [Mass fraction] N/A [facility] Calcium hydrogen phosphate d ihydrate/Total in StoneOrdered By: Anand Krueger on 08-13-2022 Calcium hydrogen phosphate dihydrate (Stone) [Mass fraction] N/A [facility] Calcium oxalate dihydrate cr ystals detection in stone by infrared spectroscopyOrdered By: Anand Krueger on 08-13-2022 Calcium oxalate dihydrate crystals Infrared spectroscopy Ql (Stone) 10 % . [facility] Calcium oxalate monohydrate/ Total in StoneOrdered By: Anand Krueger on 08-13-2022 Calcium oxalate monohydrate (Stone) [Mass fraction] 90 % . [facility] Calcium phosphate measuremen tOrdered By: Anand Krueger on 08-13-2022 Calcium phosphate (Stone) [Mass fraction] N/A [facility] Calculi, Urinaryon 3 Ca Oxalate Dihydrate 10 % Normal . [facility] Comment on above: Performed By: #### C ALCULI #### [facility] , Ca Oxalate Monohydrate 90 % Normal . [facility] Comment on above: Performed By: #### C ALCULI #### [facility] , Color (U) Brown Normal . [facility] Comment on above: Performed By: #### C ALCULI #### [facility] , Comment2 Normal . [facility] Comment on above: Result Comment: Calc ulus received wet. Wet calculi must be dried before analysis, which delays reporting of results. Leaving calculi wet (such as water, saline, blood, urine) may lead to changes in composition. Performed By: #### C ALCULI #### [facility] , Comment: Normal . [facility] Comment on above: Result Comment: Bhavana power questions regarding Calculi Analysis contact [facility] at: [phone]. Performed By: #### C ALCULI #### [facility] , Composition Normal . [facility] Comment on above: Result Comment: Perc entage (Represents the % composition) Performed By: #### C ALCULI #### [facility] , Disclaimer: Normal . [facility] Comment on above: Result Comment: This test was developed and its performance characteristics determined by [facility]. It has not been cleared or approved by the Food and Drug Administration. Performed at: [facility] [address] [id number] Systems Lead: Mike Valladares PhD, Phone: [phone] Performed By: #### C ALCULI #### [facility] , Note Normal . [facility] Comment on above: Result Comment: Calc hannah report will follow via computer, mail or log handling equipment operator delivery. PERFORMED BY: [facility] [address] [place] [address] PATHOLOGIST CARDIOLOGY TECHNOLOGIST [place] M.D. Performed By: #### C ALCULI #### [facility] , Photo Normal . [facility] Comment on above: Result Comment: Phot ograph will follow under a separate cover Performed By: #### C ALCULI #### [facility] , Size 4x4 Normal . [facility] Comment on above: Result Comment: Mult iple pieces received. Dimensions of the largest piece reported. Performed By: #### C ALCULI #### [facility] , Source Normal . [facility] Comment on above: Result Comment: Left Kidney Performed By: #### C ALCULI #### [facility] , Weight 107 Normal . [facility] Comment on above: Performed By: #### C ALCULI #### [facility] , Calculus analysis interpreta tion in stoneOrdered By: Anand Krueger on 08-13-2022 Calculus analysis [Interp] N/A [facility] Calculus analysis [Interp] See comment . [facility] Comment on above: Calculus received we t. Wet calculi must be dried beforeanalysis, which delays reporting of results. Leaving calculiwet (such as water, saline, blood, urine) may lead tochanges in composition. Physician questions regarding Calculi Analysis [facility] at: [phone]. Calculi report will follow via computer, mail or courierdelivery. Calculus analysis with calcu sabrina photography interpretation in stoneOrdered By: Anand Krueger on 08-13-2022 Calculus analysis with calculus photography [Interp] See comment . [facility] Comment on above: Photograph will foll ow under a separate cover Cellular material measuremen t in stone by estimated (mass/mass)Ordered By: Anand Krueger on 08-13-2022 Cellular material Est (Stone) [Mass/Mass] N/A [facility] Cholesterol/Total in StoneOr dered By: Anand Krueger on 08-13-2022 Cholesterol (Stone) [Mass fraction] N/A [facility] Composition of stoneOrdered By: Anand Krueger on 08-13-2022 Composition Nom (Stone) See comment . [facility] Comment on above: Percentage (Represen ts the % composition) Cystine measurementOrdered B y: Anand Krueger on 08-13-2022 Cystine (Unsp spec) [Moles/Vol] N/A [facility] Determination of color of ca lculusOrdered By: Anand Krueger on 08-13-2022 Color (Stone) Brown . [facility] Hydroxyapatite [Energy Diffe rence] in 24 hour UrineOrdered By: Annad Krueger on 08-13-2022 Hydroxyapatite (24H U) [Energy diff] N/A [facility] Blu 08-13-2022 L ------- Specimen: [id number] Received: 08/14/22 Status: RAYMUNDO Martinez Num: [id number] Spec Type: Surgical Subm Dr: Anand Krueger MD Tissues: A Urinary Calculus (LT RENAL CALCULI) Procedures: Level 1 Gross Age/ Patient Sex Location Account Attending Physician Cinthia Badillo Charmaine 52/F [place] [id number] Anand Krueger MD SPEC NUM: [id number] RECD: 08/14/22 STATUS: RAYMUNDO MARTINEZ NUM: [id number] TETE: 08/13/22- SUBM DR: Anand Krueger MD ENTERED: 08/14/[address]: [facility] SPEC TYPE: Surgical DEPT: S ORDERED: [...] chemical analysis. Gross examination only. CPT Codes 70645 Specimen: [id number] Received: 08/14/22 Status: RAYMUNDO Martinez Num: [id number] Spec Type: Surgical Subm Dr: Anand Krueger MD Tissues: A Urinary Calculus (LT RENAL CALCULI) Procedures: Level 1 Gross Patient: ChristianaCinthia Charmaine [id number] (Continued) Signed (signature on file) Rory Connors MD 09/04/22 1479 Normal [facility] Measurement of proportion of calculus composed of dried blood (mass/mass)Ordered By: Anand Krueger on 08-13-2022 Blood.dried (Stone) [Mass fraction] N/A [facility] Newberyite/Total in StoneOrd ered By: Anand Krueger on 08-13-2022 Newberyite (Stone) [Mass fraction] N/A [facility] No Panel InformationOrdered By: Anand Krueger on 08-13-2022 Stone 2,8 Dihydroxyadenine N/A [facility] Stone Analysis Disclaimer See comment . [facility] Comment on above: This test was develo ped and its performance characteristicsdetermined by [employer]. It has not been cleared or approvedby the Food and Drug Administration.Performed at: [address] [place] [id number] Director: Mike Valladares PhD, Phone: [phone] Stone Bilirubinate N/A [facility] Stone Calcium Palmitate N/A [facility] Stone Calcium Stearate N/A [facility] Stone Carbonate Apatite N/A [facility] Stone Drug or Metabolite N/A [facility] Stone Other Constituent N/A [facility] Stone Xanthine N/A [facility] Size [Entitic volume] of Sto neOrdered By: Anand Krueger on 08-13-2022 Size (Stone) [Entitic vol] 4x4 mm . [facility] Comment on above: Multiple pieces rece ived. Dimensions of the largest piecereported. Sodium urate crystals detect ion in stone by infrared spectroscopyOrdered By: Anand Kruegre on 08-13-2022 Sodium urate crystals Infrared spectroscopy Ql (Stone) N/A [facility] Specimen source subject [Typ e]Ordered By: Anand Krueger on 08-13-2022 Specimen source subject Nom See comment . [facility] Comment on above: Left Kidney Triamterene measurement in c alculusOrdered By: Anand Krueger on 08-13-2022 Triamterene (Stone) [Mass fraction] N/A [facility] Triple phosphate/Total in St oneOrdered By: Anand Krueger on 08-13-2022 Triple phosphate (Stone) [Mass fraction] N/A [facility] Uric acid dihydrate crystals detection in stone by infrared spectroscopyOrdered By: Anand Krueger on 08-13-2022 Urate dihydrate crystals Infrared spectroscopy Ql (Stone) N/A [facility] CBC AUTO DIFFon 08-07-2022 BASO # 0.0 103/ul Normal 0.0-0.1 [facility] Comment on above: Performed By: #### P TT, PT #### [facility] [address] [place] [address] [address] Judy Ramirez Basophils/100 WBC (Bld) 0.5 % Normal 0.2-2.0 [facility] Comment on above: Performed By: #### P TT, PT #### [facility] [address] [place] [address] [address] Judy Ramirez EO # 0.1 103/ul Normal 0.0-0.7 [facility] Comment on above: Performed By: #### P TT, PT #### [facility] [address] [place] [address] Dr. Judy Ramirez Eosinophils/100 WBC (Bld) 1.6 % Normal 0.9-7.0 [facility] Comment on above: Performed By: #### P TT, PT #### [facility] [address] [place] [address] Dr. Judy Ramirez Erythrocyte distribution width (RBC) [Ratio] 12.8 % Normal 11.0-15.0 [facility] Comment on above: Performed By: #### P TT, PT #### [facility] [address] [place] [address] Dr. Judy Ramirez Hematocrit (Bld) [Volume fraction] 40.7 % Normal 36.0-48.0 [facility] Comment on above: Performed By: #### P TT, PT #### [facility] [address] [place] [address] Dr. Judy Ramirez Hemoglobin (Bld) [Mass/Vol] 13.5 g/dL Normal 12.0-16.0 [facility] Comment on above: Performed By: #### P TT, PT #### [facility] [address] [place] [address] Dr. Judy Ramirez IG # 0.02 10e3/ul Normal 0.00-0.03 [facility] Comment on above: Performed By: #### P TT, PT #### [facility] [address] [place] [address] Dr. Judy Ramirez IG % 0.3 % Normal 0.0-0.5 [facility] Comment on above: Performed By: #### P TT, PT #### [facility] [address] [place] [address] Dr. Judy Ramirez LYMPH # 2.6 103/ul Normal 1.2-3.8 [facility] Comment on above: Performed By: #### P TT, PT #### [facility] [address] [place] [address] Dr. Judy Ramirez Lymphocytes/100 WBC (Bld) 33.9 % Normal 20.5-60.0 [facility] Comment on above: Performed By: #### P TT, PT #### [facility] [address] [place] [address] Dr. Judy Ramirez MANUAL DIFF REQ NO Normal [facility] Comment on above: Performed By: #### P TT, PT #### [facility] [address] [place] [address] Dr. Judy Ramirez MCH (RBC) [Entitic mass] 28.5 pg Normal 26.7-34.0 [facility] Comment on above: Performed By: #### P TT, PT #### [facility] [address] [place] [address] Dr. Judy Ramirez MCHC (RBC) [Mass/Vol] 33.2 g/dL Normal 29.9-35.2 [facility] Comment on above: Performed By: #### P TT, PT #### [facility] [address] [place] [address] Dr. Judy Ramirez MCV (RBC) [Entitic vol] 86.0 fL Normal 81.0-99.0 [facility] Comment on above: Performed By: #### P TT, PT #### [facility] [address] [place] [address] Dr. Judy Ramirez MONO # 0.4 103/ul Normal 0.3-0.8 [facility] Comment on above: Performed By: #### P TT, PT #### [facility] [address] [place] [address] Dr. Judy Ramirez Monocytes/100 WBC (Bld) 5.6 % Normal 1.7-12.0 [facility] Comment on above: Performed By: #### P TT, PT #### [facility] [address] [place] [address] Dr. Judy Ramirez NEUT # 4.4 103/ul Normal 1.4-6.5 [facility] Comment on above: Performed By: #### P TT, PT #### [facility] [address] [place] [address] [address] Judy Ramirez Neutrophils/100 WBC (Bld) 58.1 % Normal 43.0-75.0 [facility] Comment on above: Performed By: #### P TT, PT #### [facility] [address] [place] [address] [address] Judy Ramirez Platelet mean volume (Bld) [Entitic vol] 9.4 fL Critically low 9.5-13.5 [facility] Comment on above: Performed By: #### P TT, PT #### [facility] [address] [place] [address] Dr. Judy Ramirez PLT 285 103/ul Normal 150-450 [facility] Comment on above: Performed By: #### P TT, PT #### [facility] [address] [place] [address] Dr. Judy Ramirez RBC 4.73 106/ul Normal 4.20-5.40 [facility] Comment on above: Performed By: #### P TT, PT #### [facility] [address] [place] [address] Dr. Judy Ramirez WBC 7.6 103/ul Normal 4.0-11.0 [facility] Comment on above: Performed By: #### P TT, PT #### [facility] [address] [place] [address] Dr. Judy Ramirez PROF CHEM 8 (BAS METB)on Anion gap [Moles/Vol] 9.8 mmol/L Normal [facility] Comment on above: Performed By: #### P TT, PT #### [facility] [address] [place] [address] Dr. Judy Ramirez Calcium [Mass/Vol] 9.3 mg/dL Normal 8.5-10.1 [facility] Comment on above: Performed By: #### P TT, PT #### [facility] [address] [place] [address] Dr. Judy Ramirez Chloride [Moles/Vol] 105 mmol/L Normal 98-107 [facility] Comment on above: Performed By: #### P TT, PT #### [facility] [address] [address] [address] Judy Ramirez CO2 [Moles/Vol] 30.4 mmol/L Normal 21.0-32.0 [facility] Comment on above: Performed By: #### P TT, PT #### [facility] [address] [address] [address] Judy Ramirez Creatinine [Mass/Vol] 1.15 mg/dL Critically high 0.55-1.02 [facility] Comment on above: Performed By: #### P TT, PT #### [facility] [address] [address] [address] Judy Ramirez EGFR-AF EQUATORIAL GUINEAN 60 mL/min/1.73m2 Normal >=60 [facility] Comment on above: Performed By: #### P TT, PT #### [facility] [address] [place] [address] [address] Judy Ramirez EGFR-NON AF EQUATORIAL GUINEAN 50 mL/min/1.73m2 Critically low >=60 [facility] Comment on above: Performed By: #### P TT, PT #### [facility] [address] [address] [address] Judy Ramirez Glucose [Mass/Vol] 95 mg/dL Normal 74-106 [facility] Comment on above: Performed By: #### P TT, PT #### [facility] [address] [address] [address] Judy Ramirez Potassium [Moles/Vol] 4.2 mmol/L Normal 3.5-5.1 [facility] Comment on above: Performed By: #### P TT, PT #### [facility] [address] [address] [address] Judy Ramirez Sodium [Moles/Vol] 141 mmol/L Normal 136-145 [facility] Comment on above: Performed By: #### P TT, PT #### [facility] [address] [address] [address] Judy Ramirez Urea nitrogen [Mass/Vol] 24.0 mg/dL Critically high 7.0-18.0 [facility] Comment on above: Performed By: #### P TT, PT #### [facility] [address] [place] [address] Dr. Judy Ramirez Urea nitrogen/Creatinine [Mass ratio] 20.9 mg/mg Normal [facility] Comment on above: Performed By: #### P TT, PT #### [facility] [address] [place] [address] Dr. Judy Ramirez PROTIMEon 08-07-2022 INR Coag (PPP) [Relative time] {INR} Normal [facility] Comment on above: Performed By: #### P TT, PT #### [facility] [address] [place] [address] Dr. Judy Ramirez INR GUIDELINES SEE BELOW Normal [facility] Comment on above: Result Comment: KATHLEEN RED INR: 2.0 - 3.0 CONDITIONS NOT LISTED BELOW 2.5 - 3.5 FOR PROSTHETIC HEART VALVE REPLACEMENT 2.5 - 3.5 RECURRENT THROMBOSIS Performed By: #### P TT, PT #### [facility] [address] [place] [address] Dr. Judy Ramirez PT Coag (PPP) [Time] 9.7 s Normal 9.0-11.6 [facility] Comment on above: Performed By: #### P TT, PT #### [facility] [address] [place] [address] Dr. Judy Ramirez PTTon 08-07-2022 aPTT Coag (Bld) [Time] 33.6 s Normal 22.3-36.2 [facility] Comment on above: Performed By: #### P TT, PT #### [facility] [address] [place] [address] Dr. Judy Ramirez CALCULI, URINARYon 3 2,8 Dihydroxyadenine Normal [facility] Comment on above: Performed By: #### P TT, PT #### [facility] [address] [place] [address] Dr. Judy Ramirez Ammonium Acid Urate Normal [facility] Comment on above: Performed By: #### P TT, PT #### [facility] [address] [address] [address] Judy Ramirez Bilirubin Ql (U) [facility] Comment on above: Performed By: #### P TT, PT #### [facility] [address] [address] [address] Judy Ramirez Ca Oxalate Dihydrate 20 % Normal [facility] Comment on above: Performed By: #### P TT, PT #### [facility] [address] [address] [address] Judy Ramirez CaHPO4 (Brushite) [facility] Comment on above: Performed By: #### P TT, PT #### [facility] [address] [address] [address] Judy Ramirez Calcium Bilirubinate [facility] Comment on above: Performed By: #### P TT, PT #### [facility] [address] [place] [address] Dr. Judy Ramirez Calcium Carbonate [facility] Comment on above: Performed By: #### P TT, PT #### [facility] [address] [address] [address] Judy Ramirez Calcium Oxalate Monohydrate 80 % [facility] Comment on above: Performed By: #### P TT, PT #### [facility] [address] [place] [address] Dr. Judy Ramirez Calcium Palmitate [facility] Comment on above: Performed By: #### P TT, PT #### [facility] [address] [address] [address] Judy Ramirez Calcium Phosphate [facility] Comment on above: Performed By: #### P TT, PT #### [facility] [address] [address] [address] Judy Ramirez Calcium Stearate [facility] Comment on above: Performed By: #### P TT, PT #### [facility] [address] [address] [address] Judy Ramirez Carbonate Apatite [facility] Comment on above: Performed By: #### P TT, PT #### [facility] [address] [address] [address] Judy Ramirez Cellular Material [facility] Comment on above: Performed By: #### P TT, PT #### [facility] [address] [address] [address] Judy Ramirez Cholesterol [facility] Comment on above: Performed By: #### P TT, PT #### [facility] [address] [address] [address] Judy Ramirez Color (U) Brown Normal [facility] Comment on above: Performed By: #### P TT, PT #### [facility] [address] [address] [address] Judy Ramirez Comment [facility] Comment on above: Performed By: #### P TT, PT #### [facility] [address] [address] [address] Judy Ramirez Comment: Comment Normal [facility] Comment on above: Result Comment: Phys cliffan questions regarding Calculi Analysis contact [facility] at: [phone]. Performed By: #### P TT, PT #### [facility] [address] [address] [address] Judy Ramirez Composition Comment [facility] Comment on above: Result Comment: Perc entage (Represents the % composition) Performed By: #### P TT, PT #### [facility] [address] [place] [address] Dr. Judy Ramirez Cystine [facility] Comment on above: Performed By: #### P TT, PT #### [facility] [address] [address] [address] Judy Ramirez Disclaimer: Comment [facility] Comment on above: Result Comment: This test was developed and its performance characteristics determined by [facility]. It has not been cleared or approved by the Food and Drug Administration. Performed By: #### P TT, PT #### [facility] [address] [address] [address] Judy Ramirez Dried Blood [facility] Comment on above: Performed By: #### P TT, PT #### [facility] [address] [place] [address] Dr. Judy Ramirez Drug or Metabolite Normal [facility] Comment on above: Performed By: #### P TT, PT #### [facility] Laboratory [address] [address] [address] Judy Ramirez Hydroxyapatite Normal [facility] Comment on above: Performed By: #### P TT, PT #### [facility] [address] [place] [address] Dr. Judy Ramirez Mg NH4 PO4 (Struvite) [facility] Comment on above: Performed By: #### P TT, PT #### [facility] [address] [place] [address] Dr. Judy Ramirez MgHPO4 (Newberyite) [facility] Comment on above: Performed By: #### P TT, PT #### [facility] [address] [place] [address] Dr. Judy Ramirez Other component(s) [facility] Comment on above: Performed By: #### P TT, PT #### [facility] [address] [place] [address] Dr. Judy Ramirez PDF . [facility] Comment on above: Performed By: #### P TT, PT #### [facility] [address] [place] [address] Dr. Judy Ramirez Photo Comment [facility] Comment on above: Result Comment: Phot ograph will follow under a separate cover Performed By: #### P TT, PT #### [facility] [address] [place] [address] Dr. Judy Ramirez Please note: Comment Normal [facility] Comment on above: Result Comment: Calc hannah report will follow via computer, mail or log handling equipment operator delivery. Performed By: #### P TT, PT #### [facility] [address] [place] [address] Dr. Judy Ramirez Size 3x3 [facility] Comment on above: Result Comment: Mult iple pieces received. Dimensions of the largest piece reported. Performed By: #### P TT, PT #### [facility] [address] [address] [address] Judy Ramirez Sodium Acid Urate Normal [facility] Comment on above: Performed By: #### P TT, PT #### [facility] [address] [address] [address] Judy Ramirez Source Comment Normal [facility] Comment on above: Result Comment: Not provided Performed By: #### P TT, PT #### [facility] [address] [address] [address] Judy Ramirez Triamterene [facility] Comment on above: Performed By: #### P TT, PT #### [facility] [address] [address] [address] Judy Ramirez Uric Acid [facility] Comment on above: Performed By: #### P TT, PT #### [facility] [address] [place] [address] Dr. Judy Ramirez Uric Acid Dihydrate Normal [facility] Comment on above: Performed By: #### P TT, PT #### [facility] [address] [place] [address] Dr. Judy Ramirez Weight 47 mg Normal [facility] Comment on above: Performed By: #### P TT, PT #### [facility] [address] [place] [address] Dr. Judy Ramirez Xanthine [facility] Comment on above: Performed By: #### P TT, PT #### [facility] [address] [place] [address] Dr. 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 Judy Ramirez CK.MB [Mass/Vol] 0.68 ng/mL Normal <=3.60 [facility] Comment on above: Performed By: #### P TT, PT #### [facility] [address] [place] [address] Dr. Judy Ramirez HSTROP 4.3 pg/mL Normal 4.0-51.3 [facility] Comment on above: Result Comment: CUT- OFF POINTS HAVE BEEN ESTABLISHED BASED ON THE FOURTH UNIVERSAL DEFINITIONS OF MYOCARDIAL INFARCTION. THE UPPER REFERENCE LIMIT (URL) OF TROPONIN, DEFINED THE 99TH PERCENTILE OF cTnI DISTRIBUTION IN A REFERENCE POPULATION, HAS BEEN CONFIRMED THE DECISION THRESHOLD FOR LA DIAGNOSIS. Performed By: #### P TT, PT #### [facility] [address] [place] [address] Dr. Judy Ramirez YASEMIN 31 ng/mL Normal 9-82 [facility] Comment on above: Performed By: #### P TT, PT #### [facility] [address] [place] [address] Dr. Judy Ramirez CBC AUTO DIFFon 07-08-2022 BASO # 0.1 103/ul Normal 0.0-0.1 [facility] Comment on above: Performed By: #### P TT, PT #### [facility] [address] [place] [address] Dr. Judy Ramirez Basophils/100 WBC (Bld) 0.7 % Normal 0.2-2.0 [facility] Comment on above: Performed By: #### P TT, PT #### [facility] [address] [place] [address] Dr. Judy Ramirez EO # 0.2 103/ul Normal 0.0-0.7 [facility] Comment on above: Performed By: #### P TT, PT #### [facility] [address] [place] [address] Dr. Judy Ramirez Eosinophils/100 WBC (Bld) 2.1 % Normal 0.9-7.0 [facility] Comment on above: Performed By: #### P TT, PT #### [facility] [address] [place] [address] Dr. Judy Ramirez Erythrocyte distribution width (RBC) [Ratio] 12.8 % Normal 11.0-15.0 [facility] Comment on above: Performed By: #### P TT, PT #### [facility] [address] [place] [address] Dr. Judy Ramirez Hematocrit (Bld) [Volume fraction] 40.6 % Normal 36.0-48.0 [facility] Comment on above: Performed By: #### P TT, PT #### [facility] [address] [place] [address] Dr. Judy Ramirez Hemoglobin (Bld) [Mass/Vol] 13.6 g/dL Normal 12.0-16.0 [facility] Comment on above: Performed By: #### P TT, PT #### [facility] [address] [place] [address] Dr. Judy Ramirez IG # 0.04 10e3/ul Critically high 0.00-0.03 [facility] Comment on above: Performed By: #### P TT, PT #### [facility] [address] [place] [address] Dr. Judy Ramirez IG % 0.6 % Critically high 0.0-0.5 [facility] Comment on above: Performed By: #### P TT, PT #### [facility] [address] [place] [address] Dr. Judy Ramirez LYMPH # 2.6 103/ul Normal 1.2-3.8 [facility] Comment on above: Performed By: #### P TT, PT #### [facility] [address] [place] [address] Dr. Judy Ramirez Lymphocytes/100 WBC (Bld) 36.8 % Normal 20.5-60.0 [facility] Comment on above: Performed By: #### P TT, PT #### [facility] [address] [place] [address] Dr. Judy Ramirez MANUAL DIFF REQ NO Normal [facility] Comment on above: Performed By: #### P TT, PT #### [facility] [address] [place] [address] Dr. Judy Ramirez MCH (RBC) [Entitic mass] 28.8 pg Normal 26.7-34.0 [facility] Comment on above: Performed By: #### P TT, PT #### [facility] [address] [place] [address] Dr. Judy Ramirez MCHC (RBC) [Mass/Vol] 33.5 g/dL Normal 29.9-35.2 [facility] Comment on above: Performed By: #### P TT, PT #### [facility] [address] [place] [address] Dr. Judy Ramirez MCV (RBC) [Entitic vol] 86.0 fL Normal 81.0-99.0 [facility] Comment on above: Performed By: #### P TT, PT #### [facility] [address] [place] [address] Dr. Judy Ramirez MONO # 0.4 103/ul Normal 0.3-0.8 [facility] Comment on above: Performed By: #### P TT, PT #### [facility] [address] [place] [address] Dr. Judy Ramirez Monocytes/100 WBC (Bld) 6.0 % Normal 1.7-12.0 [facility] Comment on above: Performed By: #### P TT, PT #### [facility] [address] [place] [address] Dr. Judy Ramirez NEUT # 3.8 103/ul Normal 1.4-6.5 [facility] Comment on above: Performed By: #### P TT, PT #### [facility] [address] [address] [address] Judy Ramirez Neutrophils/100 WBC (Bld) 53.8 % Normal 43.0-75.0 [facility] Comment on above: Performed By: #### P TT, PT #### [facility] [address] [address] [address] Judy Ramirez Platelet mean volume (Bld) [Entitic vol] 9.6 fL Normal 9.5-13.5 [facility] Comment on above: Performed By: #### P TT, PT #### [facility] [address] [address] [address] Judy Ramirez PLT 276 103/ul Normal 150-450 [facility] Comment on above: Performed By: #### P TT, PT #### [facility] [address] [place] [address] Dr. Judy Ramirez RBC 4.72 106/ul Normal 4.20-5.40 [facility] Comment on above: Performed By: #### P TT, PT #### [facility] [address] [address] [address] Judy Ramirez WBC 7.0 103/ul Normal 4.0-11.0 [facility] Comment on above: Performed By: #### P TT, PT #### [facility] [address] [address] [address] Judy Ramirez CRPon 07-08-2022 CRP [Mass/Vol] mg/L Normal <=1.0 [facility] Comment on above: Performed By: #### P TT, PT #### [facility] [address] [address] [address] Judy Ramirez D-DIMERon 07-08-2022 D-DIMER 0.39 mg/L FEU Normal <=0.59 [facility] Comment on above: Performed By: #### P TT, PT #### [facility] [address] [place] [address] Dr. Judy Ramirez D-DIMER COMMENTS SEE BELOW Normal [facility] Comment on above: Result Comment: Incr eases [...] Performed By: #### P TT, PT #### [facility] [address] [place] [address] Dr. Judy Ramirez LIVER PROFILEon 07-08-2022 Albumin [Mass/Vol] 3.7 g/dL Normal 3.4-5.0 [facility] Comment on above: Performed By: #### T SH, CRP, MG, LIVER, BMP, CMADM #### [facility] [address] [place] [address] Dr. Judy Ramirez Albumin/Globulin [Mass ratio] 0.9 {ratio} Normal [facility] Comment on above: Performed By: #### T SH, CRP, MG, LIVER, BMP, CMADM #### [facility] [address] [place] [address] Dr. Judy Ramirez ALP [Catalytic activity/Vol] 98 U/L Normal 46-116 [facility] Comment on above: Performed By: #### T SH, CRP, MG, LIVER, BMP, CMADM #### [facility] [address] [place] [address] Dr. Judy Ramirez ALT [Catalytic activity/Vol] 37 U/L Normal 14-59 [facility] Comment on above: Performed By: #### T SH, CRP, MG, LIVER, BMP, CMADM #### [facility] [address] [place] [address] Dr. Judy Ramirez AST [Catalytic activity/Vol] 19 U/L Normal 15-37 [facility] Comment on above: Performed By: #### T SH, CRP, MG, LIVER, BMP, CMADM #### [facility] [address] [place] [address] Dr. Judy Ramirez BILI, CONJUGATED 0.1 mg/dL Normal 0.0-0.2 [facility] Comment on above: Performed By: #### T SH, CRP, MG, LIVER, BMP, CMADM #### [facility] [address] [place] [address] Dr. Judy Ramirez Bilirubin [Mass/Vol] 0.4 mg/dL Normal 0.2-1.0 [facility] Comment on above: Performed By: #### T SH, CRP, MG, LIVER, BMP, CMADM #### [facility] [address] [place] [address] Dr. Judy Ramirez Globulin (S) [Mass/Vol] 4.0 g/dL Normal [facility] Comment on above: Performed By: #### T SH, CRP, MG, LIVER, BMP, CMADM #### [facility] [address] [place] [address] Dr. Judy Ramirez Protein [Mass/Vol] 7.7 g/dL Normal 6.4-8.2 [facility] Comment on above: Performed By: #### T SH, CRP, MG, LIVER, BMP, CMADM #### [facility] [address] [place] [address] Dr. Judy Ramirez MAGNESIUMon 07-08-2022 Magnesium [Mass/Vol] 2.1 mg/dL Normal 1.8-2.4 [facility] Comment on above: Performed By: #### T SH, CRP, MG, LIVER, BMP, CMADM #### [facility] [address] [place] [address] Dr. Judy Ramirez PROF CHEM 8 (BAS METB)on Anion gap [Moles/Vol] 11.0 mmol/L Normal [facility] Comment on above: Performed By: #### T SH, CRP, MG, LIVER, BMP, CMADM #### [facility] [address] [place] [address] Dr. Judy Ramirez Calcium [Mass/Vol] 9.4 mg/dL Normal 8.5-10.1 [facility] Comment on above: Performed By: #### T SH, CRP, MG, LIVER, BMP, CMADM #### [facility] [address] [address] [address] Judy Ramirez Chloride [Moles/Vol] 102 mmol/L Normal 98-107 [facility] Comment on above: Performed By: #### T SH, CRP, MG, LIVER, BMP, CMADM #### [facility] [address] [place] [address] Dr. Judy Ramirez CO2 [Moles/Vol] 29.4 mmol/L Normal 21.0-32.0 [facility] Comment on above: Performed By: #### T SH, CRP, MG, LIVER, BMP, CMADM #### [facility] [address] [place] [address] Dr. Judy Ramirez Creatinine [Mass/Vol] 1.04 mg/dL Critically high 0.55-1.02 [facility] Comment on above: Performed By: #### T SH, CRP, MG, LIVER, BMP, CMADM #### [facility] [address] [place] [address] Dr. Judy Ramirez EGFR-AF EQUATORIAL GUINEAN >60 Normal >=60 [facility] Comment on above: Performed By: #### T SH, CRP, MG, LIVER, BMP, CMADM #### [facility] [address] [place] [address] Dr. Judy Ramirez EGFR-NON AF EQUATORIAL GUINEAN 56 mL/min/1.73m2 Critically low >=60 [facility] Comment on above: Performed By: #### T SH, CRP, MG, LIVER, BMP, CMADM #### [facility] [address] [place] [address] Dr. Judy Ramirez Glucose [Mass/Vol] 98 mg/dL Normal 74-106 [facility] Comment on above: Performed By: #### T SH, CRP, MG, LIVER, BMP, CMADM #### [facility] [address] [place] [address] Dr. Judy Ramirez Potassium [Moles/Vol] 4.4 mmol/L Normal 3.5-5.1 [facility] Comment on above: Performed By: #### T SH, CRP, MG, LIVER, BMP, CMADM #### [facility] [address] [place] [address] Dr. Judy Ramirez Sodium [Moles/Vol] 138 mmol/L Normal 136-145 [facility] Comment on above: Performed By: #### T SH, CRP, MG, LIVER, BMP, CMADM #### [facility] [address] [place] [address] Dr. Judy Ramirez Urea nitrogen [Mass/Vol] 25.0 mg/dL Critically high 7.0-18.0 [facility] Comment on above: Performed By: #### T SH, CRP, MG, LIVER, BMP, CMADM #### [facility] [address] [place] [address] Dr. Judy Ramirez Urea nitrogen/Creatinine [Mass ratio] 24.0 mg/mg Normal [facility] Comment on above: Performed By: #### T SH, CRP, MG, LIVER, BMP, CMADM #### [facility] [address] [place] [address] Dr. Judy Ramirez [facility] 27 mm/hr Normal <=30 [facility] Comment on above: Performed By: #### S EDR #### [facility] [address] [place] [address] Dr. Judy Ramirez TSHon 07-08-2022 TSH 0.701 uIU/mL Normal 0.358-3.740 [facility] Comment on above: Performed By: #### T SH, CRP, MG, LIVER, BMP, CMADM #### [facility] [address] [place] [address] Dr. Judy Ramirez UA (CLEAN/CATCH) FILLER SHAKER/MICRO I F IND.on 07-08-2022 Bilirubin Ql (U) Negative Normal NEGATIVE [facility] Comment on above: Performed By: #### U ACSIND UMICRO #### [facility] [address] [place] [address] Dr. Judy Ramirez Clarity (U) CLEAR Normal CLEAR [facility] Comment on above: Performed By: #### U ACSIND UMICRO #### [facility] [address] [address] [address] Judy Ramirez Color (U) LT. YELLOW Normal YELLOW [facility] Comment on above: Performed By: #### U ACSIND, UMICRO #### [facility] [address] [address] [address] Judy Ramirez Glucose Ql (U) Negative Normal NEGATIVE [facility] Comment on above: Performed By: #### U ACSIND, UMICRO #### [facility] [address] [address] [address] Judy Ramirez Hemoglobin Ql (U) Negative Normal NEGATIVE [facility] Comment on above: Performed By: #### U ACSIND, UMICRO #### [facility] [address] [address] [address] Judy Ramirez Ketones Ql (U) Negative Normal NEGATIVE [facility] Comment on above: Performed By: #### U ACSIND, UMICRO #### [facility] [address] [address] [address] Judy Ramirez LEUKOCYTES Negative Normal NEGATIVE [facility] Comment on above: Performed By: #### U ACSIND, UMICRO #### [facility] [address] [place] [address] Dr. Judy Ramirez Nitrite Ql (U) Negative Normal NEGATIVE [facility] Comment on above: Performed By: #### U ACSIND, UMICRO #### [facility] [address] [address] [address] Judy Ramirez pH (U) 6.0 [pH] Normal 5-9 [facility] Comment on above: Performed By: #### U ACSIND, UMICRO #### [facility] [address] [address] [address] Judy Ramirez SPEC GRAVITY <=1.005 Abnormal 1.005-<=1.0 25 [facility] Comment on above: Performed By: #### U ACSIND, UMICRO #### [facility] [address] [place] [address] Dr. Judy Ramirez UA PROTEIN Negative Normal NEGATIVE/ TRACE [facility] Comment on above: Performed By: #### U ACSIND, UMICRO #### [facility] [address] [address] [address] Judy Ramirez UR MICRO IND MICROSCOPIC ALREADY ORDERED Normal [facility] Comment on above: Performed By: #### U ACSIND, UMICRO #### [facility] [address] [address] [address] Judy Ramirez Urobilinogen Qn (U) 0.2 {Evelyn'U}/dL Normal 0.2 - 1. 0 [facility] Comment on above: Performed By: #### U ACSIND, UMICRO #### [facility] [address] [address] [address] Judy Ramirez URINE MICROSCOPIC ONLYon BACTERIA NONE SEEN Normal NONE SEEN [facility] Comment on above: Performed By: #### U ACSIND, UMICRO #### [facility] [address] [place] [address] Dr. Judy Ramirez Bacteria identified Cx Nom (U) NOT INDICATED Normal [facility] Comment on above: Performed By: #### U ACSIND, UMICRO #### [facility] [address] [address] [address] Judy Ramirez CAST NONE SEEN Normal NONE SEEN [facility] Comment on above: Performed By: #### U ACSIND, UMICRO #### [facility] [address] [address] [address] Judy Ramirez Crystals LM Nom (Urine sed) NONE SEEN Normal NONE SEEN [facility] Comment on above: Performed By: #### U ACSIND, UMICRO #### [facility] [address] [address] [address] Judy Ramierz Epithelial cells LM Ql (Urine sed) FEW Abnormal NONE SEEN /RARE [facility] Comment on above: Performed By: #### U ACSIND, UMICRO #### [facility] [address] [address] [address] Judy Ramirez MUCOUS TRACE Abnormal NONE SEEN [facility] Comment on above: Performed By: #### U ACSIND, UMICRO #### [facility] [address] [address] [address] Judy Ramirez RBC NONE SEEN Abnormal 0-2 [facility] Comment on above: Performed By: #### U ALMA MARTINEZ #### [facility] [address] [place] [address] Dr. Judy Ramirez WBC NONE SEEN Normal NONE SEEN [facility] Comment on above: Performed By: #### U ACSALMA CARL #### [facility] [address] [place] [address] Dr. Judy Ramirez XR KUB 1 VIEWon [...] JERICA HOOPER Date: 2022-07-02 12:05 Normal [facility] CBC AUTO DIFFon 06-29-2022 BASO # 0.0 103/ul Normal 0.0-0.1 [facility] Comment on above: Performed By: #### P TT, PT #### [facility] [address] [place] [address] Dr. Judy Ramirez Basophils/100 WBC (Bld) 0.4 % Normal 0.2-2.0 [facility] Comment on above: Performed By: #### P TT, PT #### [facility] [address] [place] [address] Dr. Judy Ramirez EO # 0.1 103/ul Normal 0.0-0.7 [facility] Comment on above: Performed By: #### P TT, PT #### [facility] [address] [place] [address] Dr. Judy Ramirez Eosinophils/100 WBC (Bld) 1.5 % Normal 0.9-7.0 [facility] Comment on above: Performed By: #### P TT, PT #### [facility] [address] [place] [address] Dr. Judy Ramirez Erythrocyte distribution width (RBC) [Ratio] 13.1 % Normal 11.0-15.0 [facility] Comment on above: Performed By: #### P TT, PT #### [facility] [address] [place] [address] Dr. Judy Ramirez Hematocrit (Bld) [Volume fraction] 40.7 % Normal 36.0-48.0 [facility] Comment on above: Performed By: #### P TT, PT #### [facility] [address] [place] [address] Dr. Judy Ramirez Hemoglobin (Bld) [Mass/Vol] 13.8 g/dL Normal 12.0-16.0 [facility] Comment on above: Performed By: #### P TT, PT #### [facility] [address] [place] [address] Dr. Judy Ramirez IG # 0.03 10e3/ul Normal 0.00-0.03 [facility] Comment on above: Performed By: #### P TT, PT #### [facility] [address] [place] [address] Dr. Judy Ramirez IG % 0.4 % Normal 0.0-0.5 [facility] Comment on above: Performed By: #### P TT, PT #### [facility] [address] [place] [address] Dr. Judy Ramirez LYMPH # 1.9 103/ul Normal 1.2-3.8 [facility] Comment on above: Performed By: #### P TT, PT #### [facility] [address] [place] [address] Dr. Judy Ramirez Lymphocytes/100 WBC (Bld) 24.5 % Normal 20.5-60.0 [facility] Comment on above: Performed By: #### P TT, PT #### [facility] [address] [place] [address] Dr. Judy Ramirez MANUAL DIFF REQ NO Normal [facility] Comment on above: Performed By: #### P TT, PT #### [facility] [address] [place] [address] Dr. Judy Ramirez MCH (RBC) [Entitic mass] 28.4 pg Normal 26.7-34.0 [facility] Comment on above: Performed By: #### P TT, PT #### [facility] [address] [place] [address] Dr. Judy Ramirez MCHC (RBC) [Mass/Vol] 33.9 g/dL Normal 29.9-35.2 [facility] Comment on above: Performed By: #### P TT, PT #### [facility] Laboratory [address] [place] [address] Dr. Judy Ramirez MCV (RBC) [Entitic vol] 83.7 fL Normal 81.0-99.0 [facility] Comment on above: Performed By: #### P TT, PT #### [facility] [address] [place] [address] Dr. Judy Ramirez MONO # 0.5 103/ul Normal 0.3-0.8 [facility] Comment on above: Performed By: #### P TT, PT #### [facility] [address] [place] [address] Dr. Judy Ramirez Monocytes/100 WBC (Bld) 6.5 % Normal 1.7-12.0 [facility] Comment on above: Performed By: #### P TT, PT #### [facility] [address] [place] [address] Dr. Judy Ramirez NEUT # 5.1 103/ul Normal 1.4-6.5 [facility] Comment on above: Performed By: #### P TT, PT #### [facility] [address] [place] [address] Dr. Judy Ramirez Neutrophils/100 WBC (Bld) 66.7 % Normal 43.0-75.0 [facility] Comment on above: Performed By: #### P TT, PT #### [facility] [address] [place] [address] Dr. Judy Ramirez Platelet mean volume (Bld) [Entitic vol] 9.5 fL Normal 9.5-13.5 [facility] Comment on above: Performed By: #### P TT, PT #### [facility] [address] [place] [address] Dr. Judy Ramirez PLT 238 103/ul Normal 150-450 [facility] Comment on above: Performed By: #### P TT, PT #### [facility] [address] [place] [address] Dr. Judy Ramirez RBC 4.86 106/ul Normal 4.20-5.40 [facility] Comment on above: Performed By: #### P TT, PT #### [facility] [address] [place] [address] Dr. Judy Ramirez WBC 7.6 103/ul Normal 4.0-11.0 [facility] Comment on above: Performed By: #### P TT, PT #### [facility] [address] [place] [address] Dr. Judy Ramirez PROF CHEM 8 (BAS METB)on Anion gap [Moles/Vol] 11.5 mmol/L Normal [facility] Comment on above: Performed By: #### B MP #### [facility] [address] [place] [address] Dr. Judy Ramirez Calcium [Mass/Vol] 9.9 mg/dL Normal 8.5-10.1 [facility] Comment on above: Performed By: #### B MP #### [facility] [address] [place] [address] Dr. Judy Ramirez Chloride [Moles/Vol] 105 mmol/L Normal 98-107 [facility] Comment on above: Performed By: #### B MP #### [facility] [address] [place] [address] Dr. Judy Ramirez CO2 [Moles/Vol] 28.1 mmol/L Normal 21.0-32.0 [facility] Comment on above: Performed By: #### B MP #### [facility] [address] [place] [address] Dr. Judy Ramirez Creatinine [Mass/Vol] 1.11 mg/dL Critically high 0.55-1.02 [facility] Comment on above: Performed By: #### B MP #### [facility] [address] [address] [address] Judy Ramirez EGFR-AF EQUATORIAL GUINEAN >60 Normal >=60 [facility] Comment on above: Performed By: #### B MP #### [facility] [address] [address] [address] Judy Ramirez EGFR-NON AF EQUATORIAL GUINEAN 52 mL/min/1.73m2 Critically low >=60 [facility] Comment on above: Performed By: #### B MP #### [facility] [address] [address] [address] Judy Ramirez Glucose [Mass/Vol] 97 mg/dL Normal 74-106 [facility] Comment on above: Performed By: #### B MP #### [facility] [address] [address] [address] Judy Ramirez Potassium [Moles/Vol] 3.6 mmol/L Normal 3.5-5.1 [facility] Comment on above: Performed By: #### B MP #### [facility] [address] [address] [address] Judy Ramirez Sodium [Moles/Vol] 141 mmol/L Normal 136-145 [facility] Comment on above: Performed By: #### B MP #### [facility] [address] [address] [address] Judy Ramirez Urea nitrogen [Mass/Vol] 15.0 mg/dL Normal 7.0-18.0 [facility] Comment on above: Performed By: #### B MP #### [facility] [address] [address] [address] Judy Ramirez Urea nitrogen/Creatinine [Mass ratio] 13.5 mg/mg Normal [facility] Comment on above: Performed By: #### B MP #### [facility] [address] [address] [address] Judy Ramirez PROTIMEon 06-29-2022 INR Coag (PPP) [Relative time] {INR} Normal [facility] Comment on above: Performed By: #### S EDR #### [facility] [address] [place] [address] Dr. Judy Ramirez INR GUIDELINES SEE BELOW Normal [facility] Comment on above: Result Comment: KATHLEEN RED INR: 2.0 - 3.0 CONDITIONS NOT LISTED BELOW 2.5 - 3.5 FOR PROSTHETIC HEART VALVE REPLACEMENT 2.5 - 3.5 RECURRENT THROMBOSIS Performed By: #### S EDR #### [facility] [address] [address] [address] Judy Ramirez PT Coag (PPP) [Time] 9.8 s Normal 9.0-11.6 [facility] Comment on above: Performed By: #### S EDR #### [facility] [address] [place] [address] Dr. Judy Ramirez PTTon 06-29-2022 aPTT Coag (Bld) [Time] 35.3 s Normal 22.3-36.2 [facility] Comment on above: Performed By: #### S EDR #### [facility] [address] [place] [address] Dr. Judy Ramirez XR KUB 1 VIEWon [...] Left nephrolithiasis Electronically authenticated by: LUIS M ODOM Date: 2022-06-20 12:12 Normal [facility] MG MAMM SCREEN 3D LEE CADon 06-16-2022 MG MAMM SCREEN 3D LEE CAD Patient: CINTHIA BADILLO Exam Date: 06/16/2022 : 1970 Gender:F Ordering : ZELALEM PATTON CNP Admission #: [id number] Family : Order #: [id number] CLICK HERE TO VIEW EXAM RADIOLOGY REPORT [...] breast cancer at age 80. LOCATION: [facility] BREAST COMPOSITION: Scattered areas fibroglandular density. FINDINGS: [...] SHOULD BE BIOPSIED. Dictated by: Luis M Odom MD on 06/17/2022 at 08:04 Approved by: Luis M Odom MD on 06/17/2022 at 08:06 Normal [facility] CT ABD/PELV W CONon 06-04-19 CT ABD/PELV [...] JERICA HOOPER Date: 2022-06-03 08:59 Normal [facility] AMYLASEon 05-23-2022 Amylase [Catalytic activity/Vol] 74 U/L Normal 25-115 [facility] Comment on above: Performed By: #### S EDR #### [facility] [address] [place] [address] Dr. Judy Ramirez CBC AUTO DIFFon 05-23-2022 BASO # 0.0 103/ul Normal 0.0-0.1 [facility] Comment on above: Performed By: #### S EDR #### [facility] [address] [place] [address] Dr. Judy Ramirez Basophils/100 WBC (Bld) 0.5 % Normal 0.2-2.0 [facility] Comment on above: Performed By: #### S EDR #### [facility] [address] [place] [address] Dr. Judy Ramirez EO # 0.1 103/ul Normal 0.0-0.7 [facility] Comment on above: Performed By: #### S EDR #### [facility] [address] [place] [address] Dr. Judy Ramirez Eosinophils/100 WBC (Bld) 2.6 % Normal 0.9-7.0 [facility] Comment on above: Performed By: #### S EDR #### [facility] [address] [place] [address] Dr. Judy Ramirez Erythrocyte distribution width (RBC) [Ratio] 12.4 % Normal 11.0-15.0 [facility] Comment on above: Performed By: #### S EDR #### [facility] [address] [place] [address] Dr. Judy Ramirez Hematocrit (Bld) [Volume fraction] 41.1 % Normal 36.0-48.0 [facility] Comment on above: Performed By: #### S EDR #### [facility] [address] [address] [address] Judy Ramirez Hemoglobin (Bld) [Mass/Vol] 13.8 g/dL Normal 12.0-16.0 [facility] Comment on above: Performed By: #### S EDR #### [facility] [address] [address] [address] Judy Ramirez IG # 0.01 10e3/ul Normal 0.00-0.03 [facility] Comment on above: Performed By: #### S EDR #### [facility] [address] [place] [address] Dr. Judy Ramirez IG % 0.2 % Normal 0.0-0.5 [facility] Comment on above: Performed By: #### S EDR #### [facility] [address] [place] [address] Dr. Judy Ramirez LYMPH # 2.1 103/ul Normal 1.2-3.8 [facility] Comment on above: Performed By: #### S EDR #### [facility] [address] [place] [address] Dr. Judy Ramirez Lymphocytes/100 WBC (Bld) 37.8 % Normal 20.5-60.0 [facility] Comment on above: Performed By: #### S EDR #### [facility] [address] [place] [address] Dr. Judy Ramirez MANUAL DIFF REQ NO Normal [facility] Comment on above: Performed By: #### S EDR #### [facility] [address] [place] [address] Dr. Judy Ramirez MCH (RBC) [Entitic mass] 28.4 pg Normal 26.7-34.0 [facility] Comment on above: Performed By: #### S EDR #### [facility] [address] [place] [address] Dr. Judy Ramirez MCHC (RBC) [Mass/Vol] 33.6 g/dL Normal 29.9-35.2 [facility] Comment on above: Performed By: #### S EDR #### [facility] [address] [place] [address] Dr. Judy Ramirez MCV (RBC) [Entitic vol] 84.6 fL Normal 81.0-99.0 [facility] Comment on above: Performed By: #### S EDR #### [facility] [address] [place] [address] Dr. Judy Ramirez MONO # 0.3 103/ul Normal 0.3-0.8 [facility] Comment on above: Performed By: #### S EDR #### [facility] [address] [place] [address] Dr. Judy Ramirez Monocytes/100 WBC (Bld) 5.5 % Normal 1.7-12.0 [facility] Comment on above: Performed By: #### S EDR #### [facility] [address] [place] [address] Dr. Judy Ramirez NEUT # 2.9 103/ul Normal 1.4-6.5 [facility] Comment on above: Performed By: #### S EDR #### [facility] [address] [place] [address] Dr. Judy Ramirez Neutrophils/100 WBC (Bld) 53.4 % Normal 43.0-75.0 [facility] Comment on above: Performed By: #### S EDR #### [facility] [address] [place] [address] Dr. Judy Ramirez Platelet mean volume (Bld) [Entitic vol] 9.4 fL Critically low 9.5-13.5 [facility] Comment on above: Performed By: #### S EDR #### [facility] [address] [place] [address] Dr. Judy Ramirez PLT 274 103/ul Normal 150-450 [facility] Comment on above: Performed By: #### S EDR #### [facility] [address] [place] [address] Dr. Judy Ramirez RBC 4.86 106/ul Normal 4.20-5.40 [facility] Comment on above: Performed By: #### S EDR #### [facility] [address] [address] [address] Judy Ramirez WBC 5.5 103/ul Normal 4.0-11.0 [facility] Comment on above: Performed By: #### S EDR #### [facility] [address] [address] [address] Judy Ramirez LIPASEon 05-23-2022 Lipase [Catalytic activity/Vol] 97.0 U/L Normal 73.0-393.0 [facility] Comment on above: Performed By: #### U ACSIND, UMICRO #### [facility] [address] [address] [address] Judy Ramirez LIPID PROFILEon 05-23-2022 CHOL-HDL RATIO NORM SEE BELOW Normal [facility] Comment on above: Result Comment: 3.3 - 4.4 LOW RISK 4.4 - 7.1 AVERAGE RISK 7.1 - 11.0 MODERATE RISK >11.0 HIGH RISK Performed By: #### S EDR #### [facility] [address] [address] [address] Judy Ramirez Cholesterol [Mass/Vol] 203 mg/dL Critically high <=200 [facility] Comment on above: Performed By: #### S EDR #### [facility] [address] [place] [address] Dr. Judy Ramirez Cholesterol in HDL [Mass/Vol] 48 mg/dL Normal 40-60 [facility] Comment on above: Performed By: #### S EDR #### [facility] [address] [address] [address] Judy Ramirez Cholesterol in LDL [Mass/Vol] 130.0 mg/dL Normal [facility] Comment on above: Performed By: #### S EDR #### [facility] [address] [place] [address] Dr. Judy Ramirez Cholesterol.total/Cho lesterol in HDL [Mass ratio] 4.2 {ratio} Normal [facility] Comment on above: Performed By: #### S EDR #### [facility] [address] [place] [address] Dr. Judy Ramirez HDL NORMAL > or = 60 mg/dl - LO W CARDIOVASCULAR RISK <40 mg/dl - HIGH CARDIOVASCULAR RISK Normal [facility] Comment on above: Performed By: #### S EDR #### [facility] [address] [address] [address] Judy Ramirez LDL CALC NORMAL SEE BELOW Normal [facility] Comment on above: Result Comment: <100 mg/dl OPTIMAL 100 - 129 mg/dl NEAR OR ABOVE OPTIMAL 130 - 159 mg/dl BORDERLINE HIGH 160 - 189 mg/dl HIGH >190 mg/dl VERY HIGH Performed By: #### S EDR #### [facility] [address] [address] [address] Judy Ramirez Triglyceride [Mass/Vol] 125 mg/dL Normal <=150 [facility] Comment on above: Performed By: #### S EDR #### [facility] [address] [place] [address] Dr. Judy Ramirez VLDL CALC 25.0 mg/dL Normal [facility] Comment on above: Performed By: #### S EDR #### [facility] [address] [place] [address] Dr. Judy Ramirez PROF 14(COMP METB)on 023 Albumin [Mass/Vol] 3.5 g/dL Normal 3.4-5.0 [facility] Comment on above: Performed By: #### U MICHELLE ICRO #### [facility] [address] [place] [address] Dr. Judy Ramirez Albumin/Globulin [Mass ratio] 0.9 {ratio} Normal [facility] Comment on above: Performed By: #### U ACSSIDDHARTHA UMICRO #### [facility] [address] [address] [address] Judy Ramirez ALP [Catalytic activity/Vol] 86 U/L Normal 46-116 [facility] Comment on above: Performed By: #### U ACSSIDDHARTHA UMICRO #### [facility] [address] [place] [address] Dr. Judy Ramirez ALT [Catalytic activity/Vol] 32 U/L Normal 14-59 [facility] Comment on above: Performed By: #### U ACSIND, UMICRO #### [facility] [address] [address] [address] Judy Ramirez Anion gap [Moles/Vol] 9.6 mmol/L Normal [facility] Comment on above: Performed By: #### U ACSIND, UMICRO #### [facility] [address] [address] [address] Judy Ramirez AST [Catalytic activity/Vol] 19 U/L Normal 15-37 [facility] Comment on above: Performed By: #### U ACSIND, UMICRO #### [facility] [address] [address] [address] Judy Ramirez Bilirubin [Mass/Vol] 0.5 mg/dL Normal 0.2-1.0 [facility] Comment on above: Performed By: #### U ACSIND UMICRO #### [facility] [address] [place] [address] Dr. Judy Ramirez Calcium [Mass/Vol] 9.3 mg/dL Normal 8.5-10.1 [facility] Comment on above: Performed By: #### U ACSSIDDHARTHA UMICRO #### [facility] [address] [place] [address] Dr. Judy Ramirez Chloride [Moles/Vol] 106 mmol/L Normal 98-107 [facility] Comment on above: Performed By: #### U ACSIND, UMICRO #### [facility] [address] [place] [address] Dr. Judy Ramirez CO2 [Moles/Vol] 30.7 mmol/L Normal 21.0-32.0 [facility] Comment on above: Performed By: #### U ACSIND, UMICRO #### [facility] [address] [place] [address] Dr. Judy Ramirez Creatinine [Mass/Vol] 0.92 mg/dL Normal 0.55-1.02 [facility] Comment on above: Performed By: #### U ACSIND, UMICRO #### [facility] [address] [place] [address] Dr. Judy Ramirez EGFR-AF EQUATORIAL GUINEAN >60 Normal >=60 [facility] Comment on above: Performed By: #### U ACSSIDDHARTHA UMICRO #### [facility] [address] [place] [address] Dr. Judy Ramirez EGFR-NON AF EQUATORIAL GUINEAN >60 Normal >=60 [facility] Comment on above: Performed By: #### U ACSSIDDHARTHA UMICRO #### [facility] [address] [place] [address] Dr. Judy Ramirez Globulin (S) [Mass/Vol] 3.9 g/dL Normal [facility] Comment on above: Performed By: #### U ACSSIDDHARTHA UMICRO #### [facility] [address] [place] [address] Dr. Judy Ramirez Glucose [Mass/Vol] 95 mg/dL Normal 74-106 [facility] Comment on above: Performed By: #### U ACSSIDDHARTHA UMICRO #### [facility] [address] [place] [address] Dr. Judy Ramirez Potassium [Moles/Vol] 4.3 mmol/L Normal 3.5-5.1 [facility] Comment on above: Performed By: #### U MICHELLE UMICRO #### [facility] [address] [place] [address] Dr. Judy Ramirez Protein [Mass/Vol] 7.4 g/dL Normal 6.4-8.2 [facility] Comment on above: Performed By: #### U ACSSIDDHARTHA UMICRO #### [facility] [address] [place] [address] Dr. Judy Ramirez Sodium [Moles/Vol] 142 mmol/L Normal 136-145 [facility] Comment on above: Performed By: #### U ACSSIDDHARTHA UMICRO #### [facility] [address] [place] [address] Dr. Judy Ramirez Urea nitrogen [Mass/Vol] 17.0 mg/dL Normal 7.0-18.0 [facility] Comment on above: Performed By: #### U ACSSIDDHARTHA UMICRO #### [facility] [address] [place] [address] Dr. Judy Ramirez Urea nitrogen/Creatinine [Mass ratio] 18.5 mg/mg Normal [facility] Comment on above: Performed By: #### U ACSIND, PINKYICRO #### [facility] [address] [place] [address] Dr. Judy Ramirez UA RANDOM W/MICROSCOPICon BACTERIA NONE SEEN Normal NONE SEEN [facility] Comment on above: Performed By: #### P TT, PT #### [facility] [address] [place] [address] Dr. Judy Ramirez Bilirubin Ql (U) Negative Normal NEGATIVE [facility] Comment on above: Performed By: #### P TT, PT #### [facility] [address] [place] [address] Dr. Judy Ramirez CAST NONE SEEN Normal NONE SEEN [facility] Comment on above: Performed By: #### P TT, PT #### [facility] [address] [place] [address] Dr. Judy Ramirez Clarity (U) CLEAR Normal CLEAR [facility] Comment on above: Performed By: #### P TT, PT #### [facility] [address] [place] [address] Dr. Judy Ramirez Color (U) LT. YELLOW Normal YELLOW [facility] Comment on above: Performed By: #### P TT, PT #### [facility] [address] [place] [address] Dr. Judy Ramirez Crystals LM Nom (Urine sed) NONE SEEN Normal NONE SEEN [facility] Comment on above: Performed By: #### P TT, PT #### [facility] [address] [place] [address] Dr. Judy Ramirez Epithelial cells LM Ql (Urine sed) FEW Abnormal NONE SEEN /RARE [facility] Comment on above: Performed By: #### P TT, PT #### [facility] [address] [place] [address] Dr. Judy Ramirez Glucose Ql (U) Negative Normal NEGATIVE [facility] Comment on above: Performed By: #### P TT, PT #### [facility] [address] [place] [address] Dr. Judy Ramirez Hemoglobin Ql (U) TRACE-INTACT Abnormal NEGATIVE [facility] Comment on above: Performed By: #### P TT, PT #### [facility] [address] [place] [address] Dr. Judy Ramirez Ketones Ql (U) Negative Normal NEGATIVE [facility] Comment on above: Performed By: #### P TT, PT #### [facility] [address] [place] [address] Dr. Judy Ramirez LEUKOCYTES Negative Normal NEGATIVE [facility] Comment on above: Performed By: #### P TT, PT #### [facility] [address] [place] [address] Dr. Judy Ramirez MUCOUS NONE SEEN Normal NONE SEEN [facility] Comment on above: Performed By: #### P TT, PT #### [facility] [address] [place] [address] Dr. Judy Ramirez Nitrite Ql (U) Negative Normal NEGATIVE [facility] Comment on above: Performed By: #### P TT, PT #### [facility] [address] [place] [address] Dr. Judy Ramirez pH (U) 7.0 [pH] Normal 5-9 [facility] Comment on above: Performed By: #### P TT, PT #### [facility] [address] [place] [address] Dr. Judy Ramirez RBC NONE SEEN Abnormal 0-2 [facility] Comment on above: Performed By: #### P TT, PT #### [facility] [address] [place] [address] Dr. Judy Ramirez SPEC GRAVITY 1.010 Normal 1.005-<=1.0 25 [facility] Comment on above: Performed By: #### P TT, PT #### [facility] [address] [place] [address] Dr. Judy Ramirez UA PROTEIN Negative Normal NEGATIVE/ TRACE [facility] Comment on above: Performed By: #### P TT, PT #### [facility] [address] [place] [address] Dr. Judy Ramirez Urobilinogen Qn (U) 0.2 {Evelyn'U}/dL Normal 0.2 - 1. 0 [facility] Comment on above: Performed By: #### P TT, PT #### [facility] [address] [place] [address] Dr. Judy Ramirez WBC NONE SEEN Normal NONE SEEN [facility] Comment on above: Performed By: #### P TT, PT #### [facility] [address] [address] [address] Judy Ramirez CULTURE THROATon 12-24-2021 CULTURE [...] F Tetracycline >=16 R F Normal [facility] Comment on above: Performed By: #### S EDR #### [facility] [address] [place] [address] Dr. Judy Ramirez Covid-19 PCR (CVDTB)on 12-13 SARS-CoV-2 (COVID-19) RNA CAROLA+probe Ql (Unsp spec) Not detected Normal NOT DETECTED [facility] Comment on above: Result Comment: This test is not yet approved or cleared by the [place] FDA. When there are no FDA-approved or cleared tests available, and other criteria are met, FDA can make tests available under an emergency access mechanism called an Emergency Use Authorization (EUA). The EUA for this test is supported by the [place] of Health and Human Service's (HHS's) declaration [...] consistent with SARS-CoV-2. Performed By: #### U ALMA MARTINEZ #### [facility] [address] [address] [address] Judy Ramirez COVID-19 Positive/NegativeOr dered By: Luis M Juarez on 08-13-2021 SARS-CoV-2 (COVID-19) N gene CAROLA+probe Ql (Resp) Negative Negative [facility] Comment on above: Testing for SARS-CoV -2 by RT-PCR This test was developed and its performance characteristics determined by [employer]) and validated at the [facility]. This test has not been FDA [...] Time Vital Sign Value Performing Clinician Facility 03-29-2024 17:54-0500 Body height 167.6 cm Kamilla Patton [employer] REPAIRER Work Phone: [facility] 03-29-2024 17:54-0500 Body mass index (BMI) [Ratio] 35.25 kg/m2 Kamilla Patton [employer]GE[employer] REPAIRER Work Phone: [facility] 03-29-2024 17:54-0500 Body temperature 98.29 [degF] Kamilla Patton SWITCHGEAR REPAIRER Work Phone: [facility] 03-29-2024 17:54-0500 Body weight 99.07 kg Kamilla Bisihholz SWITCHGEAR REPAIRER Work Phone: [facility] 03-29-2024 17:54-0500 Diastolic blood pressure 86 mm[Hg] Kamilla Aichholz SWITCHGEAR REPAIRER Work Phone: [facility] 03-29-2024 17:54-0500 Heart rate 80 /min Kamilla Aichholz SWITCHGEAR REPAIRER Work Phone: [facility] 03-29-2024 17:54-0500 Respiratory rate 18 /min Kamilla Aichholz SWITCHGEAR REPAIRER Work Phone: [facility] 03-29-2024 17:54-0500 SaO2% (BldA) [Mass fraction] 99 % Kamilla Aichholz SWITCHGEAR REPAIRER Work Phone: [facility] 03-29-2024 17:54-0500 Systolic blood pressure 112 mm[Hg] Kamilla Aichholz SWITCHGEAR REPAIRER Work Phone: [facility] 01-18-2024 15:27-0500 Blood Pressure Location Sena Orzech [facility] 01-18-2024 15:27-0500 Diastolic blood pressure 80 mm[Hg] Sena Orzech [facility] 01-18-2024 15:27-0500 Heart rate 79 /min Sena Orzech [facility] 01-18-2024 15:27-0500 Systolic blood pressure 125 mm[Hg] Sena Orzech [facility] 12-27-2023 18:09-0400 Body height 167.6 cm Kamilla Aichholz SWITCHGEAR REPAIRER Work Phone: [facility] 12-27-2023 18:09-0400 Body mass index (BMI) [Ratio] 35.28 kg/m2 Kamilla Aichholz SWITCHGEAR REPAIRER Work Phone: [facility] 12-27-2023 18:09-0400 Body temperature 98.8 [degF] Kamilla Patton SWITCHGEAR REPAIRER Work Phone: [facility] 12-27-2023 18:09-0400 Body weight 99.16 kg Kamilla Patton SWITCHGEAR REPAIRER Work Phone: [facility] 12-27-2023 18:09-0400 Diastolic blood pressure 82 mm[Hg] Kamilla Patton SWITCHGEAR REPAIRER Work Phone: [facility] 12-27-2023 18:09-0400 Heart rate 87 /min Kamilla Patton SWITCHGEAR REPAIRER Work Phone: [facility] 12-27-2023 18:09-0400 Respiratory rate 18 /min Kamilla Patton SWITCHGEAR REPAIRER Work Phone: [facility] 12-27-2023 18:09-0400 SaO2% (BldA) [Mass fraction] 97 % Kamilla Patton SWITCHGEAR REPAIRER Work Phone: [facility] 12-27-2023 18:09-0400 Systolic blood pressure 124 mm[Hg] Kamilla Patton SWITCHGEAR REPAIRER Work Phone: [facility] 11-10-2023 15:53-0400 Body height 167.6 cm Mohsen Sanjeev SWITCHGEAR REPAIRER Work Phone: [facility] 11-10-2023 15:53-0400 Body mass index (BMI) [Ratio] 34.86 kg/m2 Mohsen Enriquetagel SWITCHGEAR REPAIRER Work Phone: [facility] 11-10-2023 15:53-0400 Body weight 97.98 kg Mohsen Enriquetagel SWITCHGEAR REPAIRER Work Phone: [facility] 11-10-2023 15:53-0400 Diastolic blood pressure 78 mm[Hg] Mohsen Raisanagel SWITCHGEAR REPAIRER Work Phone: [facility] 11-10-2023 15:53-0400 Systolic blood pressure 118 mm[Hg] Mohsen Raisanagel SWITCHGEAR REPAIRER Work Phone: [facility] 07-07-2023 13:13-0400 Body height 165.1 cm [facility] 07-07-2023 13:13-0400 Body mass index (BMI) [Ratio] 34.1 kg/m2 [facility] 07-07-2023 13:13-0400 Body weight 92.98 kg [facility] 04-20-2023 15:47-0500 Body height 167.6 cm Zonia Pak DPM Work Phone: [facility] 04-20-2023 15:47-0500 Body mass index (BMI) [Ratio] 34.22 kg/m2 Zonia Reyes DPM Work Phone: [facility] 04-20-2023 15:47-0500 Body weight 96.16 kg Zonia Reyes DPM Work Phone: [facility] 12-28-2022 14:59-0400 Blood Pressure Location Anand KRUEGER [facility] 12-28-2022 14:59-0400 Diastolic blood pressure 86 mm[Hg] Anand KRUEGER [facility] 12-28-2022 14:59-0400 Heart rate 80 /min Anand KRUEGER [facility] 12-28-2022 14:59-0400 Respiratory rate 16 /min Anand KRUEGER [facility] 12-28-2022 14:59-0400 Systolic blood pressure 121 mm[Hg] Anand KRUEGER [facility] 09-30-2022 09:18-0400 Diastolic blood pressure 62 mm[Hg] [facility] 09-30-2022 09:18-0400 Heart rate 69 /min [facility] 09-30-2022 09:18-0400 Respiratory rate 16 /min [facility] 09-30-2022 09:18-0400 SaO2% (BldA) [Mass fraction] 98 % [facility] 09-30-2022 09:18-0400 Systolic blood pressure 96 mm[Hg] [facility] 09-30-2022 07:14-0400 Body height 165.1 cm [facility] 09-30-2022 07:14-0400 Body temperature 97.6 [degF] [facility] 09-30-2022 07:14-0400 Body weight 88.45 kg [facility] 08-13-2022 15:00-0400 Body weight 107 mg [facility] 08-15-2021 09:15-0400 Diastolic blood pressure 64 mm[Hg] DO Luis M Hykes Work Phone: [facility] 08-15-2021 09:15-0400 Heart rate 80 /min DO Luis M Hykes Work Phone: [facility] 08-15-2021 09:15-0400 Respiratory rate 20 /min DO Luis M Hykes Work Phone: [facility] 08-15-2021 09:15-0400 SaO2% (BldA) [Mass fraction] 100 % DO Luis M Hykes Work Phone: [facility] 08-15-2021 09:15-0400 Systolic blood pressure 112 mm[Hg] DO Luis M Hykes Work Phone: [facility] 08-15-2021 07:15-0400 Body height 166.37 cm DO Luis M Hykes Work Phone: [facility] 08-15-2021 07:15-0400 Body mass index (BMI) [Ratio] 32.8 kg/m2 DO Luis M Hykes Work Phone: [facility] 08-15-2021 07:15-0400 Body temperature 98.1 [degF] DO Luis M Hykes Work Phone: [facility] 08-15-2021 07:15-0400 Body weight 90.71 kg DO Luis M Juarez Work Phone: [facility] Encounters Encounter Date Encounter Type Care Provider Facility Start: 03-29-2024 End: 03-29-2024 Periodic preventive med est patient 40-64yrs Kamilla Patton SWITCHGEAR REPAIRER Work Phone: [facility] Comment on above: Encounter for annual wellness visit (Primary Dx); Morbid (severe) obesity due to excess calories ([facility]); Gastro-esophageal reflux disease without esophagitis; Body mass index (BMI) 35.0-35.9, adult; Pulmonary hypertension, unspecified ([facility]); Gastroesophageal reflux disease without esophagitis Start: 03-29-2024 End: 03-29-2024 ambulatory KAMILLA PATTON Not Available Start: 03-29-2024 End: 03-29-2024 Bamboo flowsheet Kamilla Patton SWITCHGEAR REPAIRER Work Phone: [facility] Start: 03-29-2024 End: 03-29-2024 Bamboo flowsheet Kamilla Patton SWITCHGEAR REPAIRER Work Phone: [facility] Start: 03-29-2024 End: 03-29-2024 Patient encounter procedure Kamilla Patton SWITCHGEAR REPAIRER Work Phone: [facility] Start: 02-23-2024 End: 02-23-2024 Refill Kamilla Patton SWITCHGEAR REPAIRER Work Phone: [facility] Comment on above: Gastroesophageal ref lux disease without esophagitis Start: 01-18-2024 End: 01-18-2024 ambulatory Sena X Orzech Facility:[facility] Start: 01-18-2024 End: 01-18-2024 Patient encounter procedure Sena X Orzech [facility] Start: 12-27-2023 End: 12-27-2023 Office outpatient visit 15 minutes Kamilla Patton SWITCHGEAR REPAIRER Work Phone: [facility] Comment on above: Gastroesophageal ref lux disease without esophagitis (Primary Dx); Pulmonary hypertension, unspecified (CMS/HCC); Obesity (BMI 30-39.9) Start: 12-27-2023 End: 12-27-2023 ambulatory KAMILLA PATTON Not Available Start: 12-27-2023 End: 12-27-2023 Bamboo flowsheet Kamilla Patton SWITCHGEAR REPAIRER Work Phone: [facility] Start: 12-27-2023 End: 12-27-2023 Bamboo flowsheet Kamilla Abdi SWITCHGEAR REPAIRER Work Phone: [facility] Start: 11-10-2023 End: 11-10-2023 Office outpatient visit 25 minutes Mohsen Pace SWITCHGEAR REPAIRER Work Phone: [facility] Comment on above: Trigeminal neuralgia (CMS/HCC); Nonintractable headache, unspecified chronicity pattern, unspecified headache type Start: 11-10-2023 End: 11-10-2023 ambulatory MOHSEN PACE Not Available Start: 10-22-2023 End: 10-22-2023 ambulatory Mendez Lund MD Work Phone: Gastroenterology Comment on above: Gastroesophageal ref lux disease, unspecified whether esophagitis present (Primary Dx) Start: 10-22-2023 End: 10-22-2023 Telemedicine consultation with patient Mendez Lund MD Work Phone: [facility] Start: 09-20-2023 End: 09-20-2023 ambulatory KAMILLA PATTON Not Available Start: 08-02-2023 End: 08-03-2023 ambulatory Kamilla Patton [employer] PRODUCTION MANAGER-RECOOPERER Facility:Critical access hospital Start: 07-07-2023 End: 07-07-2023 ambulatory [facility] Work Phone: Start: 07-07-2023 End: 07-07-2023 Patient encounter procedure [facility] Gastroenterology Work Phone: Start: 07-05-2023 End: 07-05-2023 ambulatory KAMILLA AICHHOLZ Not Available Start: 06-21-2023 ambulatory Kristine Ramirez PA-C Facility:Critical access hospital Start: 05-17-2023 End: 05-17-2023 ambulatory KAMILLA AICHHOLZ Not Available Start: 04-28-2023 Refill Kamilla Aichholz SWITCHGEAR REPAIRER Work Phone: [facility] Comment on above: Gastroesophageal ref lux disease without esophagitis Start: 04-20-2023 End: 04-20-2023 ambulatory ZONIA PAK Not Available Start: 04-20-2023 End: 04-20-2023 Office outpatient visit 15 minutes Zonia Pak DPM Work Phone: [facility] Comment on above: Onychomycosis (Prima ry Dx); Nail dystrophy; Pain in toes of both feet Start: 04-06-2023 End: 04-15-2023 ambulatory ISABELLE Raymundo BARRIOS [facility] Start: 01-19-2023 End: 01-19-2023 ambulatory MOHSEN PACE Facility:[facility] [place] [place] Start: 01-19-2023 End: 01-19-2023 Patient encounter procedure Mohsen Pace [facility] Start: 12-28-2022 End: 12-28-2022 Patient encounter procedure Anand KRUEGER [facility] Start: 09-30-2022 End: 09-30-2022 ambulatory Imad Asaad Facility:[facility] Start: 09-30-2022 End: 09-30-2022 Admission to same day surgery center [facility] Work Phone: Start: 09-30-2022 End: 09-30-2022 ambulatory NON STAFF [facility] Work Phone: Start: 08-31-2022 End: 08-31-2022 ambulatory Imad Asaad Facility:[facility] Start: 08-31-2022 End: 08-31-2022 ambulatory NON STAFF [facility] Work Phone: Start: 08-31-2022 End: 08-31-2022 Patient encounter procedure [facility] [place] Work Phone: Start: 08-13-2022 End: 08-13-2022 ambulatory NON STAFF [facility] Work Phone: Start: 08-13-2022 End: 08-13-2022 Departed Referred [facility] [place] Work Phone: Start: 08-11-2022 End: 08-15-2022 Pre-admission assessment oMhsen Pace [facility] Start: 08-10-2022 Encounter for preprocedural laboratory examination DR ANAND KRUEGER . [facility] Start: 08-07-2022 End: 08-08-[address] ANAND KRUEGER . Facility:[facility] Start: 08-07-2022 End: 08-08-2022 Encounter for preprocedural laboratory examination DR ANAND KRUEGER . Facility:[facility] Start: 07-29-2022 End: 07-30-[address] ANAND KRUEGER . Facility:[facility] Start: 07-27-2022 End: 07-27-2022 ambulatory Mohsen Pace Facility:[facility] Start: 07-27-2022 End: 07-27-2022 ambulatory NON STAFF [facility] Work Phone: Start: 07-27-2022 End: 07-27-2022 Patient encounter procedure [facility] [place] Work Phone: Start: 07-08-2022 End: 07-09-2022 ambulatory ZELALEM LENTZA ABDI Facility:[facility] Start: 07-05-2022 Encounter for preprocedural cardiovascular examination DR ANAND KRUEGER . [facility] Start: 07-05-2022 Encounter for preprocedural laboratory examination DR ANAND KRUEGER . [facility] Start: 07-02-2022 End: 07-02-[address] ANAND KRUEGER . Facility:[facility] Start: 06-29-2022 End: 06-30-[address] ANAND KRUEGER . Facility:[facility] Start: 06-29-2022 End: 06-30-2022 Encounter for preprocedural cardiovascular examination DR ANAND KRUEGER . Facility:[facility] Start: 06-20-2022 End: 06-21-[address] ANAND KRUEGER . Facility:[facility] Start: 06-16-2022 End: 06-17-2022 ambulatory RECOOPERER KAMILLA PATTON Facility:[facility] Start: 06-03-2022 End: 06-04-2022 ambulatory RECOOPERER KAMILLA ABDI Facility:[facility] Start: 05-23-2022 End: 05-24-2022 ambulatory RECOOPERER KAMILLA ABDI Facility:[facility] Start: 12-22-2021 End: 12-22-2021 ambulatory SHAIKH Meghana NEWTON Facility:[facility] Start: 08-15-2021 End: 08-15-2021 Admission to same day surgery center DO Luis M Juarez Work Phone: [facility] Start: 08-13-2021 End: 08-13-2021 Patient encounter procedure DO Luis M Juarez Work Phone: [facility] Procedures Date Procedure Procedure Detail Performing Clinician Start: 01-24-2024 Mammography Kamilla Patton SWITCHGEAR REPAIRER Work Phone: Start: 09-30-2022 Esophagogastroduodenoscopy Start: 08-31-2022 Radionuclide gastric emptying study Start: 08-13-2022 Rigid cystoscopy Anand KRUEGER Start: 07-27-2022 MRI of head Start: 07-02-2022 Extracorporeal shockwave lithotripsy of calculus of kidney Anand KRUEGER Start: 06-16-2022 Mammography Zonia Pak DPM Work Phone: Start: 08-15-2021 Esophagogastroduodenoscopy DO Luis M Clemente s Work Phone: Start: 08-15-2021 Colonoscopy Zonia Pak DPM Work Phone: Start: 01-02-2020 Microscopic observation [Identifier] in Cervix by Cyto stain Zonia Pak DPM Work Phone: Start: 05-26-2019 Lipid 1996 panel - Serum or Plasma Mendez Lund MD Work Phone: Cholecystectomy Mohsen hutchinson Hysterectomy Mohsen wang Plan of Treatment Date Care Activity Detail Author Start: 08-16-2031 Screening for malign ant neoplasm of colon [facility] Start: 01-23-2025 Screening for malign ant neoplasm of breast Mammogram [facility] Start: 08-30-2024 End: 08-30-2024 Patient encounter procedure 08/30/2024 5:00 PM EDT Office Visit [facility] [address] [place] [phone] Kamilla Patton SWITCHGEAR REPAIRER [address] [place] [phone] [facility] Start: 05-25-2024 Lipid panel Lipid Screening [facility] Start: 05-24-2024 Influenza vaccination Influenza Vacc ine (#1) [facility] Comment on above: Postponed from 11/13 (Patient Refused) Start: 04-24-2024 End: 04-24-2024 Patient encounter procedure [facility] Start: 03-29-2024 End: 03-29-2024 Patient encounter procedure [facility] Comment on above: Pulmonary hypertensi on, unspecified (CMS/HCC) (Primary Dx); Morbid (severe) obesity due to excess calories (CMS/HCC); Gastro-esophageal reflux disease without esophagitis; Body mass index (BMI) 35.0-35.9, adult; Encounter for annual wellness visit Start: 03-29-2024 End: 03-29-2025 CBC W Auto Differential panel - Blood CBC and differential Lab Routine Encounter for annual wellness visit Expected: 03/29/2024 (Approximate), Expires: 03/29/2025 [facility] Comment on above: Expected: 03/29/2024 (Approximate), Expires: 03/29/2025 Start: 03-29-2024 End: 03-29-2025 Comprehensive metabolic 2000 panel - Serum or Plasma Comprehensive metabolic panel Lab Routine Encounter for annual wellness visit Expected: 03/29/2024 (Approximate), Expires: 03/29/2025 [facility] Comment on above: Expected: 03/29/2024 (Approximate), Expires: 03/29/2025 Start: 03-29-2024 End: 03-29-2025 Lipid 1996 panel - Serum or Plasma Lipid panel Lab Routine Encounter for annual wellness visit Expected: 03/29/2024 (Approximate), Expires: 03/29/2025 [facility] Comment on above: Expected: 03/29/2024 (Approximate), Expires: 03/29/2025 Start: 03-29-2024 End: 03-29-2025 Thyrotropin [Units/volume] in Serum or Plasma TSH Lab Routine Encounter for annual wellness visit Expected: 03/29/2024 (Approximate), Expires: 03/29/2025 [facility] Work Phone: Comment on above: Expected: 03/29/2024 (Approximate), Expires: 03/29/2025 Start: 03-29-2024 End: 03-29-2025 Urinalysis complete panel - Urine Urinalysis with reflex microscopic (clean catch) Lab Routine Encounter for annual wellness visit Expected: 03/29/2024 (Approximate), Expires: 03/29/2025 [facility] Comment on above: Expected: 03/29/2024 (Approximate), Expires: 03/29/2025 Start: 01-13-2024 Influenza vaccination Influenza Vacc ine (#1) [facility] Comment on above: Postponed from 11/13 (Patient Does Not Have Time) Start: 12-27-2023 End: 12-27-2023 Patient encounter procedure [facility] Comment on above: Pulmonary hypertensi on, unspecified (CMS/HCC) Start: 11-14-2023 Influenza vaccination Influenza Vacc ine (#1) [facility] Start: 06-17-2023 Screening for malign ant neoplasm of breast Mammogram [facility] Start: 05-17-2023 End: 05-17-2023 Patient encounter procedure 05/17/2023 7:00 PM EST Office Visit [facility] [address] [place] [phone] Kamilla Patton, SWITCHGEAR REPAIRER [address] [place] [phone] [facility] Start: 04-29-2023 End: 04-29-2023 Patient encounter procedure 04/29/2023 6:00 PM EST Office Visit [facility] [address] [place] [phone] Kamilla Patton, SWITCHGEAR REPAIRER [address] [place] [phone] [facility] Start: 01-01-2023 Screening for malign ant neoplasm of cervix Pap Smear [facility] Start: 11-13-2022 Covid-19 Vaccine ( season) Covid-19 Vaccine ( season) [facility] Start: 09-30-2022 [facility] Start: 07-27-2022 MR Unspecified body region [facility] Start: 07-27-2022 MRI of head MR head/brain wo/w con [facility] Start: 05-25-2022 Diabetes Screening Diabetes Screenin g [facility] Start: 2021 Shingrix Vaccine (1 of 2) Shingrix Vaccine (1 of 2) [facility] Start: 05-01-2020 Screening for malign ant neoplasm of breast Mammogram Screening [facility] Start: 07-18-2019 Urine microalbumin profile DTaP,Tdap,Td Vaccine (2 - Td or Tdap) [facility] Start: 01-26-2016 Screening for malign ant neoplasm of colon [facility] Start: 2001 Screening for malign ant neoplasm of cervix HPV/Cotest [facility] Start: 01-26-1992 Screening for malign ant neoplasm of cervix Cervical Cancer Screening [facility] Start: 1990 Hepatitis B Vaccine (1 of 3 - 19+ 3-dose series) Hepatitis B Vaccine (1 of 3 - 19+ 3-dose series) [facility] Start: 1989 Anxiety Screening Anxiety Screening [facility] Start: 1989 Depression Screening Depression Scre ening [facility] Start: 1989 Hepatitis C screening Hepatitis C Sc reening [facility] Start: 1989 HIV screening HIV Screening [facility] Start: 1971 Screening for malign ant neoplasm of colon [facility] Bilirubin measurement [facility] Body weight [facility] Calcium carbonate/To mirna in [facility] Calcium hydrogen phosphate dihydrate/Total in [facility] Calcium oxalate monohydrate/Total in [facility] Calcium phosphate level [facility] Calculus analysis wi th calculus photography [Interpretation] in [facility] Calculus analysis, qualitative [facility] Calculus analysis, quantitative [facility] Calculus analysis, quantitative, infrared spectroscopy [facility] Cellular material [Mass/mass] of Stone by Estimated [facility] Cholesterol [Mass/volume] in Serum or Plasma [facility] Cystine measurement [facility] Determination of calculus chemical composition [facility] Evaluation procedure [facility] Hydroxyapatite [Ener gy Difference] in 24 hour Urine [facility] Laboratory data interpretation [facility] Newberyite/Total in [facility] Patient Education Esophagitis Hi atal Hernia (DC) Stomach polyps [facility] Work Phone: Specimen source subj ect [Type] [facility] Triamterene measurement [facility] Triple phosphate/Tot al in [facility] Immunizations Immunization Date Immunization Notes Care Provider Demarc[facility] 12-27-2022 influenza virus vaccine, unspecified formulation Zonia Pak DPM Work Phone: [facility] 12-27-2022 influenza, unspecifi ed formulation Sena Carias [facility] 10-09-2021 SARS-CoV-2 mRNA (jsexbimuenu-pade-qgja ose) vaccine Mohsen Windnagel [facility] 02-13-2021 COVID-19 mRNA, Comirnaty (Pfizer) DO Luis M Juarez Work Phone: [facility] 05-08-2020 COVID-19 mRNA, Comirnaty (Pfizer) DO Luis M Movaris Work Phone: [facility] Comment on above: Result Comment: 2022: [id number] 04-06-2020 SARS-CoV-2 (COVID-19 ) mRNA BNT-162b2 vax Mohsen Windnagel [facility] Comment on above: Result Comment: 2022: [id number] 04-02-2020 COVID-19 mRNA, Comirnaty (Pfizer) DO Luis M GaleFingo Work Phone: [facility] Comment on above: Result Comment: 2022: TPV40 07-17-2009 tetanus toxoid, reduced diphtheria toxoid, and acellular pertussis vaccine, adsorbed Mohsen Windnagel [facility] Payers Date Payer Category Payer Self-pay [id number] 2022 [email or web address] Shield [facility] [id number] 2020 Unknown [id number] [id number] .[id number] 1971 Unknown [id number] 2.16.840.1.380121.3.579.2 .593 1971 Unknown [id number] 2.16.840.1.972668.3.579.2 .593 1971 Unknown [id number] 2.16.840.1.374274.3.579.2 .593 1971 Unknown [id number] 2.16.840.1.121731.3.579.2 .593 1971 Unknown [id number] 2.16.840.1.902936.3.579.2 .593 1971 Unknown [id number] 2.16.840.1.022398.3.579.2 .593 1971 Unknown [id number] 2.16.840.1.241370.3.579.2 .593 1971 Unknown [id number] 2.16.840.1.290417.3.579.2 .593 1971 Unknown [id number] 2.16.840.1.365713.3.579.2 .593 1971 Unknown [id number] 2.16.840.1.975612.3.579.2 .593 1971 Unknown [id number] 2.16.840.1.263225.3.579.2 .593 1971 Unknown [id number] 2.16.840.1.532842.3.579.2 .1286 1971 Unknown [id number] 2.16.840.1.544695.3.579.2 .196 1971 Unknown [id number] 2.16.840.1.442202.3.579.2 .196 1971 Unknown [id number] 2.16.840.1.897685.3.579.2 .196 1971 Unknown [id number] 2.16.840.1.673773.3.579.2 .727 1971 Unknown [id number] 2.16.840.1.229181.3.579.2 .727 1971 Unknown [id number] 2.16.840.1.524708.3.579.2 .1258 1971 Unknown [id number] 2.16.840.1.997566.3.579.2 .1258 1971 Unknown [id number] 2.16.840.1.082006.3.579.2 .1258 1971 Unknown [id number] 2.16.840.1.812696.3.579.2 .1258 1971 Unknown [id number] 2.16.840.1.665590.3.579.2 .1258 1971 Unknown [id number] 2.16.840.1.399799.3.579.2 .1258 1971 Unknown [id number] 2.16.840.1.871670.3.579.2 .1259 1959 Unknown [id number] Unknown [id number] 2.16.840.1.124100.3.579.2 .531 Unknown [id number] 2.16.840.1.308443.3.579.2 .531 Unknown [id number] 2.16.840.1.938572.3.579.2 .531 Unknown [id number] 2.16.840.1.622585.3.579.2 .531 Social History Date Type Detail Facility Tobacco smoking stat NHIS Unknown if ever smoked [facility] Work Phone: Start: 1970 Sex Assigned At Female [facility] Start: 06-22-2022 End: 04-20-2023 Tobacco smoking status Never smoked tobacco (finding) [facility] Tobacco smoking status Never [facility] Start: 03-17-2023 End: 07-05-2023 Sex Assigned At Female [facility] Start: 04-20-2023 Tobacco use and exposure Smokeless tobacco non-user [facility] Start: 04-20-2023 End: 03-29-2024 Alcohol intake Ex-drinker (finding) [facility] Start: [...] Only a little [facility] (I/We) worried brenna er (my/our) food would run out before (I/we) got money to buy more. Never true [facility] Start: 12-18-2022 Alcohol Comment monthly [facility] Start: 02-08-2023 Gender identity Identifies as female gender (finding) [facility] Start: 02-08-2023 Sexual orientation Heterosexual (finding) [facility] Start: 1970 Sex Assigned At Not on file [facility] Goals Date Patient Goal Desired Activity /State Functional Status Date Assessment Result Facility 01-18-2024 Functional Status N/A [facility] 12-28-2022 Functional Status N/A [facility] Clinical Notes 08-15-2021 to 03-29-2024 Kamilla Patton, KAYLAH - 03/29/2024 6:00 PM ESTLi Bisimeghanaharriet, SWITCHGEAR REPAIRER - 03/29/2024 7:10 AM ESTLisa Bisimeghanaharriet, SWITCHGEAR REPAIRER - 03/29/2024 7:08 AM ESTLisa Stephanieholz, SWITCHGEAR REPAIRER - 03/29/2024 7:07 AM ESTPatient Instructions Note Date & Type Note Facility 03-29-2024 History of Present illness Narrative Images from the original note were not included. Cinthia Badillo is a 54 y.o. 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 She reports no abdominal pain, no sore throat, no tooth decay or no wheezing. This is a chronic problem. The current episode started more than 1 year ago. The problem occurs constantly. The problem has been waxing and waning. The heartburn is located in the substernum. The heartburn is of severe intensity. The heartburn wakes her from sleep. The heartburn limits her activity. The symptoms are aggravated by certain foods, lying down, bending and caffeine. Pertinent negatives include no anemia, fatigue, melena, muscle weakness, orthopnea or weight loss. Risk factors include obesity. She has tried a PPI for the symptoms. The treatment provided moderate relief. Past procedures include an EGD. Past invasive treatments do not include gastroplasty, gastroplication or reflux surgery. SUBJECTIVE: MEDICATIONS: Current Outpatient Medications Medication Instructions [...] of Systems Constitutional: Negative for appetite change, chills, fatigue, fever and weight loss. HENT: Negative for congestion, ear pain and sore throat. Eyes: Negative for pain, discharge, redness and visual disturbance. Respiratory: Positive for cough and choking. Negative for shortness of breath and wheezing. Cardiovascular: Positive for chest pain. Negative for palpitations and leg swelling. Gastrointestinal: Positive for dysphagia, heartburn and nausea. Negative for abdominal pain, blood in stool, constipation, diarrhea, melena and vomiting. Genitourinary: Negative for difficulty urinating, dysuria and frequency. Musculoskeletal: Negative for arthralgias, back pain, joint swelling, myalgias and muscle weakness. Skin: Negative for rash and wound. Neurological: [...] intractable, unspecified migraine type (CMS/HCC) Palpitation Pancreatitis 2018 Paresthesia Pelvic pain S/P laparoscopy Thickened endometrium Trigeminal neuralgia (CMS/HCC) Past Surgical History: Procedure Laterality Date APPENDECTOMY 1991 or CHOLECYSTECTOMY HERNIA REPAIR 1974 HYSTERECTOMY 2019 ovaries still present, non cancerous KNEE ARTHROSCOPY W/ DEBRIDEMENT Right 1990 x2, 2010 LITHOTRIPSY OVARY SURGERY 1991 Ovarian Resection - [place] family history includes Arthritis in her mother; [...] her paternal grandfather. OBJECTIVE: Visit Vitals BP 112/86 (BP Location: Left arm, Patient Position: Sitting, BP Cuff Size: Adult long) Pulse 80 Temp 98.3 F (Temporal) Resp 18 Ht 5' 6 Wt 218 lb 6.4 oz SpO2 99% BMI 35.25 kg/m Smoking Status Never BSA 2.15 m [...] normal. Judgment: Judgment normal. ASSESSMENT AND PLAN: No follow-ups on file. Problem List Items Addressed This Visit Gastro-esophageal reflux disease without esophagitis Recommendations: freq small meals, nothing to eat or drink at least 2 hours prior to bed, limit caffeine, alcohol, as well as spicy foods Meds to limit or avoid if possible: NSAIDS Elevate HOB if possible Current meds: pantoprazole BID Lengthy GERD hx Relevant Medications pantoprazole (ProtoNix) 40 MG EC tablet Body mass index (BMI) 35.0-35.9, adult Pulmonary hypertension, unspecified (CMS/HCC) As per ECHO on 06/2023 at [facility] No current symptoms Morbid (severe) obesity due to excess calories (CMS/HCC) Discussed with patient their BMI (actual, verses recommended). We have also discussed lifestyle modifications: attempts to perform physical activity as chronic conditions allow, also to monitor dietary intake: increasing protein/fruits/veggies and lowering carb intake (unless contraindicated). Limit sodas, juices, and sugary drinks. Goal start WW 05/13/24, fu 08/13/24 with goal loss 15 pounds Encounter for annual wellness visit - Primary Reviewed Ht/Wt/BMI Recommend eye exam yearly Recommend dental exams twice a year Balance work/leisure activities Exercises is recommended most days of the week (appropriate as chronic conditions allow) Follow up yearly and prn Relevant Orders TSH CBC and differential Comprehensive metabolic panel Lipid panel Urinalysis with reflex microscopic (clean catch) Other Visit Diagnoses Gastroesophageal reflux disease without esophagitis Relevant Medications pantoprazole (ProtoNix) 40 MG EC tablet Associated Problem(s): Encounter for annual wellness visit Reviewed Ht/Wt/BMI Recommend eye exam yearly Recommend dental exams twice a year Balance work/leisure activities Exercises is recommended most days of the week (appropriate as chronic conditions allow) Follow up yearly and prn Associated Problem(s): Morbid (severe) obesity due to excess calories (CMS/HCC) Discussed with patient their BMI (actual, verses recommended). We have also discussed lifestyle modifications: attempts to perform physical activity as chronic conditions allow, also to monitor dietary intake: increasing protein/fruits/veggies and lowering carb intake (unless contraindicated). Limit sodas, juices, and sugary drinks. Goal start WW 05/13/24, fu 08/13/24 with goal loss 15 pounds Associated Problem(s): Gastro-esophageal reflux disease without esophagitis Recommendations: freq small meals, nothing to eat or drink at least 2 hours prior to bed, limit caffeine, alcohol, as well as spicy foods Meds to limit or avoid if possible: NSAIDS Elevate HOB if possible Current meds: pantoprazole BID Lengthy GERD hx Associated Problem(s): Pulmonary hypertension, unspecified (CMS/HCC) As per ECHO on 06/2023 at [facility] No current symptoms documented in this encounter [facility] 03-29-2024 Instructions Kamilla Patton NP - 03/29/2024 6:00 PM EST No med changes Goal: start weight watchers 05/13/2024 Follow up in August with goal 200-205 documented in this encounter [facility] 01-18-2024 Hospital Discharge instructions Patient Education 01/18/2024 15:56:53 Kidney Stones, Dxxy-gy-Bprd Kidney Stones Kidney stones are rock-like masses that form inside of the kidneys. Kidneys are organs that make pee (urine). A kidney stone may move into other parts of the urinary tract, including: The tubes that connect the kidneys to the bladder (ureters). The bladder. The tube that carries urine out of the body (urethra). Kidney stones can cause very bad pain and can block the flow of pee. The stone usually leaves your body through your pee. A doctor may need to take out the stone. What are the causes? Kidney stones may be caused by: Too much calcium in the body. This may be caused by too much parathyroid hormone in the blood. Uric acid crystals in the bladder. The body makes uric acid when you eat certain foods. Narrowing of one or both of the ureters. A kidney blockage that you were born with. Past surgery on the kidney or the ureters. What increases the risk? You are more likely to develop this condition if: You have had a kidney stone in the past. Other people in your family have had kidney stones. You do not drink enough water. You eat a diet that is high in protein, salt (sodium), or sugar. You are very overweight (obese). What are the signs or symptoms? Symptoms of a kidney stone may include: Pain in the side of the belly, right below the ribs. Pain usually spreads to the groin. Needing to pee often or right away. Pain when peeing. Blood in your pee. Feeling like you may vomit (nauseous). Vomiting. Fever and chills. How is this treated? Treatment depends on the size, location, and makeup of the kidney stones. The stones will often pass out of the body when you pee. You may need to: Drink more fluid to help pass the stone. ?In some cases, you may be given fluids through an IV tube at the hospital. Take medicine for pain. Change your diet to help keep kidney stones from coming back. Sometimes, you may need: A procedure to break up kidney stones using a beam of light (laser) or shock waves. Surgery to remove the kidney stones. Follow these instructions at home: Medicines Take zzlv-ooo-lldpzza and prescription medicines only as told by your doctor. Ask your doctor if the medicine prescribed to you requires you to avoid driving or using machinery. Eating and drinking Drink enough fluid to keep your pee pale yellow. ?You may be told to drink at least 8 10 glasses of water each day. This will help you pass the stone. If told by your doctor, change your diet. You may be told to: ?Limit how much salt you eat. ?Eat more fruits and vegetables. ?Limit how much meat, poultry, fish, and eggs you eat. Follow instructions from your doctor about what you may eat and drink. General instructions Collect pee samples as told by your doctor. You may need to collect a pee sample: ?24 hours after a stone comes out. ?8 12 weeks after a stone comes out, and every 6 12 months after that. Strain your pee every time you pee. Use the strainer that your doctor recommends. Do not throw out the stone. Keep it so that it can be tested by your doctor. Keep all follow-up visits. You may need X-rays and ultrasounds to make sure the stone has come out. How is this prevented? To prevent another kidney stone: Drink enough fluid to keep your pee pale yellow. This is the best way to prevent kidney stones. Eat healthy foods. Avoid certain foods as told by your doctor. You may be told to eat less protein. Stay at a healthy weight. Where to find more information National Kidney Foundation (NKF): kidney.org U[employer] Care Foundation (F): urologyhealth.org Contact a doctor if: You have pain that gets worse or does not get better with medicine. Get help right away if: You have a fever or chills. You get very bad pain. You get new pain in your belly. You faint. You cannot pee. This information is not intended to replace advice given to you by your health care provider. Make sure you discuss any questions you have with your health care provider. Document Revised: 10/23/2022 Document Reviewed: 10/23/2022 [employer] Patient Education 2023 [employer]. 01/18/2024 15:56:52 Dietary Guidelines to Help Prevent Kidney Stones Dietary Guidelines to Help Prevent Kidney Stones Kidney stones are deposits of minerals and salts that form inside your kidneys. Your risk of developing kidney stones may be greater depending on your diet, your lifestyle, the medicines you take, and whether you have certain medical conditions. Most people can lower their risks of developing kidney stones by following these dietary guidelines. Your dietitian may give you more specific [...] include: ?8 oz (237 mL) of milk, cryyppp-qrmttdqwbrto-wfxhj milk, and calcium-fortifiedfruit juice. Calcium-fortified means that [...] table and allow each person to add their own salt to taste. Use vegetable protein, [...] fish, or seafood. ?When you prepare animal proteins, cut pieces into small portion sizes. For [...] ?Have two kinds of vegetables at dinner. You may be told to limit foods that are high in a substance called oxalate. These include: ?Spinach (cooked), rhubarb, beets, sweet potatoes, and Montenegrin chard. ?Peanuts. ?Potato chips, sammarinese fries, and baked potatoes with skin on. ?Nuts and nut products. ?Chocolate. If you regularly take a diuretic medicine, make sure to eat at least 1 or 2 servings of fruits or vegetables that are high in potassium each day. These include: ?Avocado. ?Banana. ?[place], prune, carrot, or tomato juice. ?Baked potato. ?Cabbage. ?Beans and split peas. Lifestyle Drink enough fluid to keep your urine pale yellow. This is the most important thing you can do. Spread your fluid intake throughout the day. If you drink alcohol: ?Limit how much you have to: ?0 1 drink a day for women who are not . ?0 2 drinks a day for men. ?Know how much alcohol is in your drink. [...] of your kidney stones, you may be told: ?Do not take high-dose supplements of vitamin C (1,000 mg a day or more). ?To take a calcium supplement. ?To take a daily probiotic supplement. ?To take other supplements such as magnesium, fish oil, or vitamin B6. Take wlbq-qrd-yjmktlj and prescription medicines only as told by [...] sausages, meat loaves, and hot dogs. Dairy Cheeses. Beverages Regular soft drinks. Regular vegetable juice. Seasonings and condiments Seasoning blends with salt. Salad dressings. Soy sauce. Ketchup. Barbecue sauce. Other foods Canned soups. Canned pasta sauce. Casseroles. Pizza. Lasagna. Frozen meals. Potato chips. Montenegrin fries. The items listed above may not [...] with your health care provider. Document Revised: 06/11/2022 Document Reviewed: 06/11/2022 [employer] Patient Education 2023 [employer]. Follow Up Care 12/28/2022 16:08:34 With:GENNA Carias APRN, Sena Ames, VIET, URL Address:Unknown When: Unknown [facility] 01-18-2024 Note Patient Education Nephrology Dietary Guidelines to Help Prevent Kidney Stones Kidney stones are deposits of minerals and salts that form inside your kidneys. Your risk of developing kidney stones may be greater depending on your diet, your lifestyle, the medicines you take, and whether you have certain medical conditions. Most people can lower their risks of developing kidney stones by following these dietary guidelines. Your dietitian may give you more specific instructions depending on your overall health and the type of kidney stones you tend to develop. What are tips for following this plan? Reading food labels ??? Choose foods with no salt added or low-salt labels. Limit your salt (sodium) intake to less than 1,500 mg a day. ??? Choose foods with calcium for each meal and snack. Try to eat about 300 mg of calcium at each meal. Foods that contain 200?500 mg of calcium a serving include: ? 8 oz (237 mL) of milk, aonhhzg-pzgisprvzqdv-xfrvn milk, and calcium-fortifiedfruit juice. Calcium-fortified means that [...] much calcium is recommended for you. Shopping ??? Buy plenty of fresh fruits and vegetables. Most people do not need to avoid fruits and vegetables, even if these foods contain nutrients that may contribute to kidney stones. ??? When shopping for convenience foods, choose: ? Whole pieces of fruit. ? Pre-made salads with dressing on the side. ? Low-fat fruit and yogurt smoothies. ??? Avoid buying frozen meals or prepared deli foods. These can be high in sodium. ??? Look for foods with live cultures, such as yogurt and kefir. ??? Choose high-fiber grains, such as whole-wheat breads, oat bran, and wheat cereals. Cooking ??? Do not add salt to food when cooking. Place a salt shaker on the table and allow each person to add their own salt to taste. ??? Use vegetable protein, such as beans, textured vegetable protein (TVP), or tofu, instead of meat in pasta, casseroles, and soups. Meal planning ??? Eat less salt, if told by your dietitian. To do this: ? Avoid eating processed or pre-made food. ? Avoid eating fast food. ??? Eat less animal protein, including cheese, meat, poultry, or fish, if told by your dietitian. To do this: ? Limit the number of times you have meat, poultry, fish, or cheese each week. Eat a diet free of meat at least 2 days a week. ? Eat only one serving each day of meat, poultry, fish, or seafood. ? When you prepare animal proteins, cut pieces into small portion sizes. For most meat and fish, one serving is about the size of the palm of your hand. ??? Eat at least five servings of fresh fruits and vegetables each day. To do this: ? Keep fruits and vegetables on hand for snacks. ? Eat one piece of fruit or a handful of berries with breakfast. ? Have a salad and fruit at lunch. ? Have two kinds of vegetables at dinner. ??? You may be told to limit foods that are high in a substance called oxalate. These include: ? Spinach (cooked), rhubarb, beets, sweet potatoes, and Montenegrin chard. ? Peanuts. ? Potato chips, sammarinese fries, and baked potatoes with skin on. ? Nuts and nut products. ? Chocolate. ??? If you regularly take a diuretic medicine, make sure to eat at least 1 or 2 servings of fruits or vegetables that are high in potassium each day. These include: ? Avocado. ? Banana. ? [place], prune, carrot, or tomato juice. ? Baked potato. ? Cabbage. ? Beans and split peas. Lifestyle ??? Drink enough fluid to keep your urine pale yellow. This is the most important thing you can do. Spread your fluid intake throughout the day. ??? If you drink alcohol: ? Limit how much you have to: ? 0?1 drink a day for women who are not . ? 0?2 drinks a day for men. ? Know how much alcohol is in your drink. In the [place] one drink equals one 12 oz bottle of beer (355 mL), one 5 oz glass of wine (148 mL), or one 1? oz glass of hard liquor (44 mL). ??? Lose weight if told by your health care provider. Work with your dietitian to find an eating plan and weight loss strategies that work best for you. General information ??? Talk to your health care provider and dietitian about taking daily supplements. Depending on your health and the cause of your kidney stones, you may be told: ? Do not take high-dose supplements of vitamin C (1,000 mg a day or more). ? To take a calcium supplement. ? To take a daily probiotic supplement. ? To take other supplements such as magnesium, fish oil, or vitamin B6. ??? Take mplb-gsn-vrncguq and prescription medicines only as told by your health (more content not included)... [facility] 12-27-2023 History of Present illness Narrative Associated [...] intractable, unspecified migraine type (CMS/HCC) Palpitation Pancreatitis 2018 Paresthesia Pelvic pain S/P laparoscopy Thickened endometrium Trigeminal neuralgia (CMS/HCC) Past Surgical History: Procedure Laterality Date APPENDECTOMY 1991 or CHOLECYSTECTOMY HERNIA REPAIR 1974 HYSTERECTOMY 2019 ovaries still present, non cancerous KNEE ARTHROSCOPY W/ DEBRIDEMENT Right 1990 x2, 2009 LITHOTRIPSY OVARY SURGERY 1991 Ovarian Resection - [place] family history includes Arthritis in her mother; [...] Per echo reads documented in this encounter [facility] 11-10-2023 History of Present illness Narrative Images from the original note were not included. Patient is here today for follow-up of headaches and TN. I am following the plan of care established by the physician who is present in the office today. Subjective Cinthia Badillo is a 53 y.o. year old female Chief Complaint Patient presents with Headache Trigeminal Neuralgia Numbness Past Medical History: Diagnosis Date Abnormal uterine [...] intractable, unspecified migraine type (CMS/HCC) Palpitation Pancreatitis 2018 Paresthesia Pelvic pain S/P laparoscopy Thickened endometrium Trigeminal neuralgia (CMS/HCC) Past Surgical History: Procedure Laterality Date APPENDECTOMY 1991 or CHOLECYSTECTOMY HERNIA REPAIR 1974 HYSTERECTOMY 2019 ovaries still present, non cancerous KNEE ARTHROSCOPY W/ DEBRIDEMENT Right 1990 x2, 2010 LITHOTRIPSY OVARY SURGERY 1991 Ovarian Resection - [place] Family History Problem Relation Name Age of Onset Hypertension Mother Mary Arthritis Mother Mary Diabetes Mother Mary Hearing loss Mother Mary Hyperlipidemia Mother Mary Hyperlipidemia Father Americo Hypertension Father Americo Heart disease Father Americo Diabetes Father Americo COPD Father Americo Pulmonary fibrosis Father Americo Coronary artery disease Father Americo Heart attack Father Americo Breast cancer Maternal Grandmother Stomach cancer Paternal Grandfather Multiple sclerosis Niece Social History Tobacco Use Smoking status: Never Smokeless tobacco: Never Substance Use Topics Alcohol use: Not Currently Alcohol/week: 2.0 standard drinks of alcohol Comment: monthly Medication Documentation Review Audit Reviewed by Avery Harvey MA ([employer] Segment Leader) on 11/10/23 at 2998 Medication Order Taking? Sig Documenting Provider Last Dose Status amitriptyline (Elavil) 50 MG tablet [id number] Yes Take 50 mg by mouth at bedtime Kamilla Patton NP Taking Active famotidine (Pepcid) 20 MG tablet [id number] Take 1 tablet (20 mg) by mouth at bedtime Kamilla Patton NP 10/20/23 0464 pantoprazole (ProtoNix) 40 MG EC tablet [id number] Yes Take 1 tablet (40 mg) by mouth in the morning and 1 tablet (40 mg) before bedtime. Take 40 mg by mouth in the morning and 40 mg before bedtime.. Kamilla BrownKAYLAH larios Taking Active zonisamide (Zonegran) 25 MG capsule [id number] Yes TAKE 1 CAPSULE BY MOUTH TWICE DAILY WITH 50 MG CAPS TO EQUAL 75 MG Mohsen Pace NP Taking Active zonisamide (Zonegran) 50 MG capsule [id number] Yes Take 1 capsule (50 mg) by mouth in the morning and 1 capsule (50 mg) before bedtime. Mohsen Pace, KAYLAH Taking Active HPI HPI TRIGEMINAL NEURALGIA -medication has been effective for her -She admits intermittent, rare facial pain. -Located in lower jaw, occasionally to cheek bone. -Also on increase of Elavil which is helpful with TN symptoms and sleep. -Denies numbness/heaviness in right side of face -Teeth sensitivity has improved significantly, very rare to occur. -Denies vision changes . HEADACHES -These are much better with Zonegran increase -Last headaches, she feels were due to change in meds. She was put on Nexium and found she was having adverse side effects. -Will f/u with gastro. Has DC Nexium and gone back on her Protonix. -She is still having fatigue but this is improving -She does snore at times -Bought an adjustable bed which helps the snoring. -Takes melatonin and magnesium at bed time to aid Elavil in getting to sleep. -She states she's struggling to shut her mind off at nighttime. - ROS Review of Systems Objective Visit Vitals BP 118/78 Ht 5' 6 Wt 216 lb BMI 34.86 kg/m Smoking Status Never BSA 2.14 m GENERAL Apical RRR, no murmur LS CTA throughout Carotid - no bruit Abdomen soft, BS normal Neurological Exam Mental Status Awake, alert and oriented to person, place and time. Recent and remote memory are intact. Speech is normal. Language is fluent with no aphasia. Attention and concentration are normal. Fund of knowledge is appropriate for level of education. Cranial Nerves CN II: Visual acuity is normal. Visual [place] full to confrontation. CN III, IV, : Extraocular movements intact bilaterally. Normal lids and orbits bilaterally. Pupils equal round and reactive to light bilaterally. CN V: Facial sensation is normal. CN VII: Full and symmetric facial movement. CN VIII: Hearing is normal. CN IX, X: Palate elevates symmetrically. Normal gag reflex. CN XI: Shoulder shrug strength is normal. CN XII: Tongue midline without atrophy or fasciculations. Sensory Light touch is normal in upper and lower extremities. Temperature is normal in upper and lower extremities. Vibration is normal in upper and lower extremities. Coordination Right: Syoqse-kx-zfhy normal. Rapid alternating movement normal.Left: Tzynep-vl-ytwy normal. Rapid alternating movement normal. Gait Casual gait is normal including stance, stride, and arm swing. Motor Examination RUE Strength deltoid, biceps, triceps, wrist extensors, wrist extensors, wrist flexor, administrative accountant strength 5/5. LUE Strength deltoid, biceps, triceps, wrist extensors, wrist extensors, wrist flexor, administrative accountant strength 5/5. RLE Strength illopsoas, quadriceps, tibialis anterior, and gastrocnemius strength 5/5. LLE Strength illopsoas, quadriceps, tibialis anterior, and gastrocnemius strength 5/5. Tone Normal tone x4 extremities. Reflexes: RUE biceps reflex 2, brachioradialis reflex 2 LUE biceps reflex 2, brachioradialis reflex 2 RLE knee reflex 2, LLE knee reflex 2, Assessment and Plan 1. Migraine without aura and without status migrainosus, not intractable - G43.009 (Primary) 2. Trigeminal neuralgia - G50.0, 53-year-old female with a long history of migraine headaches. Post Covid recovery she experienced a constellation of symptoms including heaviness in her arms, paresthesias involving her extremities and her face, and weakness. She continues to have episodic right facial pain but overall symptoms are so much better and stable on medicaitons 3. Sleep disturbance - G47.9, Sleep study completed on 02/09/23. She does not qualify for BiPAP or CPAP therapy due to overall AHI less than 5. However she did have significant hypoxia with oxygen desaturation into the 70s. Nocturnal pulse ox study completed with no O2 levels below < 90%. Discussed sleep hygiene and ways to promote sleep with lavender, tea, mediation, and journaling -- Prior Evaluation: 1. Sedimentation rate 27, CRP less than 0.2 2. Autonomic testing completed in 2013 was normal 3. EMG of bilateral upper extremities in 2012 was normal 4. QSART in 2013 was normal 5. MRI scan of the brain completed in 2013 showed a 1.2 cm mass within the midline of the of the prior occipital sulcus with narrowing of the sagittal sinus representing an arachnoid granulation unchanged from prior imaging in 2012 6. MRI of cervical spine in 2012 was unremarkable with straightening of the cervical lordotic curve 7. MRI scan of the brain on 07/28/22 shows scattered foci of periventricular white matter is nonspecific. I did review the MRI personally with Dr. Gonzales who states the 1.2 cm arachnoid granulation noted in the parieto-occipital area in 2013 is unchanged. She also has one in the superior parasagittal sinus. He states these are normal variations and not concerning 8. MRI of cervical spine in 2011 was unremarkable with straightening of the cervical lordotic curve. Diagnoses and all orders for this visit: Trigeminal neuralgia (CMS/HCC) - zonisamide (Zonegran) 50 MG capsule; Take 1 capsule (50 mg) by mouth in the morning and 1 capsule (50 mg) before bedtime. - amitriptyline (Elavil) 50 MG tablet; Take 1 tablet (50 mg) by mouth at bedtime Nonintractable headache, unspecified chronicity pattern, unspecified headache type - zonisamide (Zonegran) 25 MG capsule; TAKE 1 CAPSULE BY MOUTH TWICE DAILY WITH 50 MG CAPS TO EQUAL 75 MG - amitriptyline (Elavil) 50 MG tablet; Take 1 tablet (50 mg) by mouth at bedtime PLAN: 1.Continue amitriptyline and increase to 50 mg at bed to see if this helps with nerve pain, headaches, and sleep 2. Continue Zonegran but increase to 75 mg BID for headache prevention 3. Headache journal 4. Keep appt with Dr Pitts pulmonology 5. Nocturnal pulse ox completed - does not need oxygen at night 6. Discussed sleep hygiene 7. I will see the patient back in 6 months, or sooner if needed documented in this encounter [facility] 10-22-2023 Instructions Mendez Lund MD - 10/22/2023 3:30 PM EDT Stop pantoprazole and famotidine. Start esomeprazole 40mg twice daily - Take 30 min before breakfast and dinner 2. Return to clinic in 3 months. You can call [phone] to schedule documented in this encounter [facility] 10-22-2023 Note HNO ID: [id number] Author: MENDEZ LUND MD Service: ? Author [...] for internal providers or letter via the [employer] Postal Service for external providers. I have communicated my name and active licensure. The patient's identity and physical location were verified at the time of this visit. Either the patient or their legal public service representative has been informed of the risks [...] pH testing off PPI Mendez Lund MD [facility] 10-22-2023 History of Present illness Narrative NEW [...] for internal providers or letter via the [employer] Postal Service for external providers. I have communicated my name and active licensure. The patient's identity and physical location were verified at the time of this visit. Either the patient or their legal public service representative has been informed of the risks [...] Mendez Lund MD documented in this encounter [facility] 07-30-2023 Note Patient Education Ma terials Name: Cinthia Badillo Current Date: 07/30/2023 10:48:38 [place] : 1970 [facility]: [id number] The following sheet(s) are the Patient Education Leaflets for Cinthia Badillo Oncology Breast Health: Breast Self-Awareness What is [...] breast self-examination (BSE). These experts include the [employer] and the [place] [employer]. Some experts [...] This means they are not cancer. ? 8431-[address] [place] [address], [place] [address]. All rights reserved. This information is not [...] and can help prevent urine leakage. ? 9933-5723 [employer]. [address] [place] [address], [place] [address]. All rights reserved. This information is not intended as a substitute for professional medical care. Always follow your healthcare professional's instructions. [facility] 04-20-2023 History of Present illness Narrative Images [...] 2009 OVARY SURGERY 1991 Ovarian Resection - Feli Family History Family History Problem Relation Name [...] Zonia Pak DPM documented in this encounter [facility] 12-28-2022 Hospital Discharge instructions Patient Education 12/28/2022 [...] include: ?8 oz (237 mL) of milk, fxsgoil-widarotwbgvx-ryemy milk, and calcium-fortifiedfruit juice. Calcium-fortified means that [...] ?Spinach (cooked), rhubarb, beets, sweet potatoes, and Montenegrin chard. ?Peanuts. ?Potato chips, sammarinese fries, and baked potatoes with skin on. ?Nuts and nut products. ?Chocolate. If you regularly take a diuretic medicine, make sure to eat at least 1 or 2 servings of fruits or vegetables that are high in potassium each day. These include: ?Avocado. ?Banana. ?[place], prune, carrot, or tomato juice. ?Baked potato. [...] magnesium, fish oil, or vitamin B6. Take zgvo-gap-tnvoqtj and prescription medicines only as told by [...] Casseroles. Pizza. Lasagna. Frozen meals. Potato chips. Montenegrin fries. The items listed above may not [...] provider. Document Revised: 11/10/2021 Document Reviewed: 11/10/2021 [employer] Patient Education 2022 [employer] Follow Up Care 07/07/2022 08:32:51 With:PATI DOHERTY, Anand Fonseca, URL Address: [facility] [address] [place] [address]- When:Within 1 Year(s) Comments:w/SERGIO [facility] 09-30-2022 Procedure note [facility] 08-15-2021 History and physi annie note Note Date/Time August 15, 2021 8:18a m [facility] [address] [place] [address] Gastroenterology H&P Signed Patient: Cinthia Badillo MR#: [id number] : 1970 Acct:[id number] Age/Sex: 51 / F Adm Date: 2 Loc: Room: Type: [facility] Attending Dr: Luis M Juarez DO [...] <Electronically signed by Luis M Juarez Jr, > 08/15/21 0825 [facility] Work Phone: 1(862) 111-387106-03-2022 [facility] Future Appointments Appointment Date:12/28/2022 02:45:00 PM Scheduled Provider:Anand KRUEGER MD Location:[facility] Future Appointments Appointment Date:01/07/2024 08:00:00 AM Scheduled Provider:Anand KRUEGER MD Location:[facility] Appointment Type:URO Office Visit [facility] evaluation note* Diagnosis Onset Date Resolution Status GERD (gastroesophageal reflux disease) acute Screening for colorectal cancer acute [facility] Work Phone: evaluation noteNo assessment information available [facility] Work Phone: evaluation note* Diagnosis Onychomycosis- Primary Dermatophytosis of nail Nail dystrophy Other specified disease of nail Pain in toes of both feet documented in this encounter [facility]* Diagnosis Gastroesophageal reflux disease without esophagitis Esophageal reflux documented in this encounter [facility] note* Diagnosis Onset Date Resolution Status GERD (gastroesophageal reflux disease) [facility] Work Phone: Evaluation note* Diagnosis Gastroesophageal reflux disease, unspecified whether esophagitis present- Primary [facility] Diagnosis Gastroesophageal reflux disease without esophagitis- [...] Obesity (BMI 30-39.9) documented in this encounter [facility] Healthcare[facility]* Diagnosis Gastroesophageal reflux disease without esophagitis- [...] Pulmonary hypertension, unspecified (CMS/HCC) Obesity (BMI 30-39.9) Gastroesophageal reflux disease without esophagitis Esophageal reflux documented in this encounter [facility]* Diagnosis Trigeminal neuralgia (CMS/HCC) Trigeminal neuralgia Nonintractable headache, unspecified chronicity pattern, unspecified headache type documented in this encounter [facility] Healthcare[facility]* Diagnosis Gastroesophageal reflux disease without esophagitis- [...] Pulmonary hypertension, unspecified (CMS/HCC) Obesity (BMI 30-39.9) Encounter for annual wellness visit- Primary Morbid (severe) obesity due to excess calories (CMS/HCC) Gastro-esophageal reflux disease without esophagitis Body mass index (BMI) 35.0-35.9, adult Pulmonary hypertension, unspecified (CMS/HCC) Gastroesophageal reflux disease without esophagitis Esophageal reflux [facility] Author Juani Blackwell [facility] September 30, 2022 8:25am Note Date/Time September 30, 2022 8:25 am [facility] [address] [place] [address] Gastroenterology H&P Signed Patient: Cinthia Badillo MR#: [id number] : 1970 Acct:[id number] Age/Sex: 52 / F Adm Date: 3 Loc: Room: Type: [facility] Attending Dr: Juani Blackwell MD Copies [...] <Electronically signed by Juani Blackwell MD> 09/30/22824 [facility] Work Phone: Hospital course Narrative No data available for this section [facility] Discharge instructions No data available for this section [facility] Discharge instructions Additional Instructions DISCHARGE INSTRUCTIONS [...] problems. -Follow up with PCP. -Office number [phone]. [facility] Work Phone: Progress note No data [...] Status: Inactive Member Role Status Dates Anand Krueger MD Attending Provider Active Team Status: Active Member Role Status Dates PHYSICIAN NO FAMILY Primary Care Provider Active Team Status: Inactive Member Role Status Dates Juani Blackwell MD Attending Provider Active PHYSICIAN NO FAMILY Primary Care Provider Active Team Status: Inactive Member Role Status Dates Anand Krueger MD Attending Provider Active PHYSICIAN NO FAMILY Primary Care Provider Active Team Status: Active Member Role Status Dates Kamilla Patton Primary Care Provider Active Team Status: Inactive Member Role Status Dates Juani Blackwell MD Attending Provider Active Kamilla Patton Primary Care Provider Active Field Operations Technician Relationship Specialty Start Date End Date Nishant Aguilar MD [address] [place] [phone] PCP - General Family Medicine 03/10/23 Kamilla Patton NP [address] [place] [address] Nurse Practitioner Family Medicine 03/10/23 Field Operations Technician Relationship Specialty Start Date End Date Nishant Aguilar MD [address] [place] [phone] PCP - General Family Medicine 03/10/23 Kamilla Patton NP [address] [place] [address] Nurse Practitioner Family Medicine 03/10/23 Team Status: Inactive Member Role Status Dates Kamilla Patton Primary Care Provider Active Sta rt: July 07, 2023 End: July 07, 2023 Juani Blackwell MD Attending Provider Active Start: July 07, 2023 End: July 07, 2023 Field Operations Technician Relationship Specialty Start Date End Date Kamilla Patton Referring 09/27/23 Field Operations Technician Relationship Specialty Start Date End Date Nishant Aguilar MD [address] [place] [phone] PCP - General Family Medicine 05/17/23 Kamilla Patton NP [address] [place] [address] Nurse Practitioner Family Medicine 03/10/23 Jerica Zhu MD [address] [place] [address] Referring Physician Neurology 06/23/23 Field Operations Technician Relationship Specialty Start Date End Date Nishant Aguilar MD [address] [place] [phone] PCP - General Family Medicine 05/17/23 Kamilla Patton NP [address] [place] [address] Nurse Practitioner Family Medicine 03/10/23 Jerica Zhu MD [address] [place] [address] Referring Physician Neurology 06/23/23 Field Operations Technician Relationship Specialty Start Date End Date Nishant Aguilar MD [address] [place] [address] PCP - General Family Medicine 05/17/23 Kamilla Patton NP [address] [place] [address] Nurse Practitioner Family Medicine 03/10/23 Jerica Zhu MD [address] [place] [address] Referring Physician Neurology 06/23/23 Field Operations Technician Relationship Specialty Start Date End Date Nishant Aguilar MD [address] [place] [address] PCP - General Family Medicine 05/17/23 Kamilla Patton NP [address] [place] [address] Nurse Practitioner Family Medicine 03/10/23 Jerica Zhu MD [address] [place] [address] Referring Physician Neurology 06/23/23 Field Operations Technician Relationship Specialty Start Date End Date Nishant Aguilar MD [address] [place] [address] PCP - General Family Medicine 05/17/23 Kamilla Patton NP [address] [place] [address] Nurse Practitioner Family Medicine 03/10/23 Jerica Zhu MD [address] [place] [address] Referring Physician Neurology 06/23/23 Goals (unrecognized section [...] and content) DATE CREATED AUTHOR 08/24/2022 [facility] DATE CREATED AUTHOR AUTHOR'S ORGANIZ ATION 10/02/2022 [facility] DATE CREATED AUTHOR AUTHOR'S ORGANIZ ATION 04/18/2023 [facility] DATE CREATED AUTHOR AUTHOR'S ORGANIZ ATION 08/04/2023 [facility] DATE CREATED AUTHOR AUTHOR'S ORGANIZ ATION 10/25/2023 [facility] DATE CREATED AUTHOR AUTHOR'S ORGANIZ ATION 01/19/2024 [facility] DATE CREATED AUTHOR AUTHOR'S ORGANIZ ATION 04/02/2024 [facility] Specialists EPIC Reason for Visit (unrecogniz ed section and content) Reason Comments Follow-up Established pt prese nts today for 4 month lamisil fuv. Pt states she hasn't noticed much of a difference in her nails. Used topical medication as well. Reason Comments GERD Specialty Diagnoses / Procedures Referred By Contac t Referred To Contact Gastroenterology Diagnoses Gastroesophageal reflux disease without esophagitis Procedures OFFICE/OUTPATIENT [facility] 60 MINUTES AMB REFERRAL TO GASTROENTEROLOGY Kamilla Patton, RECOOPERER [address] [place] [address] Mendez Lund MD [address] [place] [address] Referral ID Status Reason Start Date Expiration Date V isits Requested Visits Authorized [id number] Outside PCP 09/23/2023 03/21/2024 1 1 Reason Comments Headache Trigeminal Neuralgia Numbness Reason Comments Gastroesophageal reflux disease without esophagitis Source Comments (unrecognize d section and content) In the event this informatio n is protected by the Federal Confidentiality of Alcohol and Drug Abuse Patient Records regulations: The Federal rules restrict any use of the information to criminally investigate or prosecute any alcohol or drug abuse patient.[facility] FOR RECORDS PERTAINING TO PATIENTS WHO ARE [...] BE BASED ON THE PRIMARY CLINICAL RECORDS. [facility] [employer] provides no warranty or guarantee of the accuracy or completeness of information in this document.
[2024-04-15 10:00] LABS: Basophils Percent Auto 0.4 % (0.2-2.0); Eosinophils Absolute Auto 0.2 10^3/uL (0.0-0.7); Eosinophils Percent Auto 2.7 % (0.9-7.0); Hematocrit 40.7 % (36.0-48.0); Hemoglobin 13.5 g/dL (12.0-16.0); Immature Granulocytes Abs Auto 0.02 10^3/uL (0.00-0.03); Immature Granulocytes Pct Auto 0.3 % (0.0-0.5); Lymphocytes Absolute Auto 2.3 10^3/uL (1.2-3.8); Lymphocytes Percent Auto 30.6 % (20.5-60.0); Mean Corpuscular HGB Conc 33.2 g/dL (29.9-35.2); Mean Corpuscular Hemoglobin 28.8 pg (26.7-34.0); Mean Platelet Volume 9.4 fL (9.5-13.5); Monocytes Absolute Auto 0.4 10^3/uL (0.3-0.8); Monocytes Percent Auto 5.3 % (1.7-12.0); Neutrophils Absolute Auto 4.5 10^3/uL (1.4-6.5); Neutrophils Percent Auto 60.7 % (43.0-75.0); Platelet Count 267 10^3/uL (150-450); Red Blood Count 4.68 10^6/uL (4.20-5.40); Red Cell Distribution Width 13.6 % (11.0-15.0); White Blood Count 7.4 10^3/uL (4.0-11.0)
[2024-04-15 10:08] LABS: Bilirubin Urine NEGATIVE (NEGATIVE); Blood Urine NEGATIVE (NEGATIVE); Clarity Urine CLEAR (CLEAR); Color Urine LT. YELLOW (YELLOW); Glucose Urine UA NEGATIVE (NEGATIVE); Ketones Urine NEGATIVE (NEGATIVE); Leukocyte Esterase Urine SMALL (NEGATIVE); Nitrite Urine NEGATIVE (NEGATIVE); Protein Urine NEGATIVE (NEG/TRACE); Urobilinogen Urine 0.2 EU/dL (0.2-1.0)
[2024-04-15 10:11] LABS: Urine Microscopic Indicated YES
[2024-04-15 10:37] LABS: RBC Urine 0-2 #/HPF (0-2)
[2024-04-15 10:38] LABS: Bacteria Urine SMALL #/HPF (NONE SEEN); Cast Seen? NONE SEEN #/LPF (NONE SEEN); Crystals Seen? None Seen #/HPF (None Seen); Mucus Urine NONE SEEN (NONE SEEN); Squamous Epithelial Cell Urine FEW #/LPF (NONE/RARE)
[2024-04-15 10:39] LABS: Alanine Aminotransferase 38 U/L (14-59); Albumin Globulin Ratio 0.8; Albumin Level 3.2 g/dL (3.4-5.0); Alkaline Phosphatase 93 U/L (46-116); Anion Gap 10.6; Aspartate Amino Transferase 22 U/L (15-37); BUN Creatinine Ratio 17.7; Bilirubin Total 0.3 mg/dL (0.2-1.0); Calcium 8.5 mg/dL (8.5-10.1); Carbon Dioxide 27.6 mmol/L (21.0-32.0); Chloride 108 mmol/L (98-107); Chol HDL Ratio 3.7; Cholesterol 195 mg/dL (<=200); Estimated GFR (African America 47 (>=60 mL/min/1.73m^2); Estimated GFR (Non-African Ame 39 (>=60 mL/min/1.73m^2); Globulin 3.8 g/dL; Glucose 111 mg/dL (74-106); HDL Cholesterol 53 mg/dL (40-60); LDL Cholesterol Calculated 127.2 mg/dL; Potassium 4.2 mmol/L (3.5-5.1); Sodium 142 mmol/L (136-145); Thyroid Stimulating Hormone 1.185 uIU/mL (0.358-3.740); Triglycerides 74 mg/dL (<=150); VLDL CHOLESTEROL 14.8 mg/dL
== END 2024-04-15 09:03 | disposition home or self-care (01) ==
LOC: LAB 09:03
PROVIDERS: PCP Nurse Practitioner; Visit Provider Nurse Practitioner
DX: Z00.00 Encounter for general adult medical examination without abnormal findings (principal)
CPT/HCPCS: 36415; 80053; 80061; 81001; 84443; 85025

== ENCOUNTER 2024-11-04 08:24 | Outpatient (OUT) | payer BC, SELFPAY ==
--- OUTSIDE RECORDS SUMMARY | 2024-11-04 08:28 | XMS_ITS | CCD ---
Author Organization [facility] Informat ion Partnership [facility] Care Team Providers Care Hand Grinder Name Role Phone Baljinderbob DO Luis M Montano Attending Provider NON STAFF Primary Care Provider Unavaildina e NON STAFF Primary Care Provider Unavaildina e TISHA Jenkins- Mohsen Attending Provider [phone] MD Anand Lopez Attending Provider AICHHOLZ, KAMILLA J Primary Care Physician PATI ., DR MICHEL Attending Unavailable LOPEZ ., DR MICHEL Consulting Unavailable AICHHOLZ, RELIGION INSTRUCTOR KAMILLA Primary Care Unavailable LOPEZ ., DR MICHEL Admitting Unavailable GALVEZ, AGNES Consulting Unavailable LOPEZ ., DR MICHEL Consulting Unavailable AICHHOLZ, RELIGION INSTRUCTOR KAMILLA Primary Care Unavailable LOPEZ ., DR MICHEL Admitting Unavailable LOPEZ ., DR MICHEL Attending Unavailable ZIFÁTIMA, DR JERICA Fonseca Consulting Unavailable VICTORINO, KYLE Consulting Unavailable MARY ANN II, GEOVANNI Consulting Unavailable LOPEZ ., DR MICHEL Attending Unavailable AICHHOLZ, RELIGION INSTRUCTOR KAMILLA Primary Care Unavailable LOPEZ ., DR MICHEL Admitting Unavailable AICHHOLZ, RELIGION INSTRUCTOR KAMILLA Admitting Unavailable AICHHOLZ, RELIGION INSTRUCTOR KAMILLA Attending Unavailable AICHHOLZ, RELIGION INSTRUCTOR KAMILLA Consulting Unavailable AICHHOLZ, RELIGION INSTRUCTOR KAMILLA Primary Care Unavailable ZIEBBETI, DR JERICA Fonseca Consulting Unavailable AICHHOLZ, RELIGION INSTRUCTOR KAMILLA Admitting Unavailable AICHHOLZ, RELIGION INSTRUCTOR KAMILLA Attending Unavailable AICHHOLZ, RELIGION INSTRUCTOR KAMILLA Consulting Unavailable AICHHOLZ, RELIGION INSTRUCTOR KAMILLA Primary Care Unavailable FAWWAD, STEELE H Admitting Unavailable FAWWAD, STEELE H Attending Unavailable FAWWAD, STEELE H Consulting Unavailable AICHHOLZ, RELIGION INSTRUCTOR KAMILLA Primary Care Unavailable LOPEZ ., DR MICHEL Attending Unavailable LOPEZ ., DR MICHEL Consulting Unavailable AICHHOLZ, RELIGION INSTRUCTOR KAMILLA Primary Care Unavailable LOPEZ ., DR MICHEL Admitting Unavailable PRAKASHEBER, DR JERICA Fonseca Consulting Unavailable AICHHOLZ, RELIGION INSTRUCTOR KAMILLA Primary Care Unavailable AICHHOLZ, RELIGION INSTRUCTOR KAMILLA Admitting Unavailable AICHHOLZ, RELIGION INSTRUCTOR KAMILLA Attending Unavailable AICHHOLZ, RELIGION INSTRUCTOR KAMILLA Consulting Unavailable LOPEZ ., DR MICHEL Admitting Unavailable LOPEZ ., DR MICHEL Consulting Unavailable AICHHOLZ, RELIGION INSTRUCTOR KAMILLA Primary Care Unavailable LOPEZ ., DR MICHEL Attending Unavailable WEST, DR LUIS M Bustos Consulting Unavailable AICHHOLZ, RELIGION INSTRUCTOR KAMILLA Primary Care Unavailable WEST, DR LUIS M Bustos Consulting Unavailable AICHHOLZ, RELIGION INSTRUCTOR KAMILLA Admitting Unavailable AICHHOLZ, RELIGION INSTRUCTOR KAMILLA Attending Unavailable AICHHOLZ, RELIGION INSTRUCTOR KAMILLA Consulting Unavailable LOPEZ ., DR MICHEL Consulting Unavailable AICHHOLZ, RELIGION INSTRUCTOR KAMILLA Primary Care Unavailable LOPEZ ., DR MICHEL Admitting Unavailable LOPEZ ., DR MICHEL Attending Unavailable NO FAMILY, PHYSICIAN Primary Care Provider Unava ilable MD Rishi Imad Attending Provider Aichholz, Kamilla J Primary Care Provider SOPHIE, ISABELLE R Referring Unavailable SOPHIE, ISABELLE R Primary Care Unavailable Aichholz ENTEROSTOMAL NURSE, Kamilla Unavailable Nishant Aguilar MD Primary Care Provider Aichholz, Kamilla Unavailable Unavailable AICHHOLZ, KAMILLA HUMERA Referring Unavailable MENDEZ LUND Attending Unavailable Aichholz ENTEROSTOMAL NURSE, Kamilla Unavailable Nishant Aguilar MD Primary Care Provider Jerica Zhu MD Unavailable WINDNAGEL, MOHSEN Referring Unavailable WINDNAGELPEPEMOHSEN Attending Unavailable PEPE JENKINSICIA Admitting Unavailable Sena Carias Attending Unavailable Jennifer FU, Chidi Patten Attending Unavail able Aichholz INK JET OPERATOR-RELIGION INSTRUCTOR, Kamilla Humera Primary Care Unava ilable Jerica Zhu MD Unavailable Unavailable Lina Tobin Unavailable Jerica Zhu MD Unavailable [phone] LINA CONNER Attending Unavailable AICHHOLZ, KAMILLA Attending Unavailable MOHSEN JENKINS Attending Unavailable KAMILLA PATTON Attending Unavailable KAMILLA PATTON Attending Unavailable KAMILLA PATTON Attending Unavailable Kamilla Patton Primary Care Provider Katty Jackson APRN Emergency Provider [phone] Rajinder Elliott DO Emergency Provider Agnes Mcclain APRN Attending Provider Kamilla Patton Primary Care Unavailable Katty Jackson Admitting Unavailable Katty Jackson Attending Unavailable Kamilla Patton Primary Care Unavailable Rajinder Elliott N Admitting Unavailable Rajinder Elliott N Attending Unavailable Allergies Allergy Classification Reported Allergen(s) Allergy Type Date of Onset Reaction(s) Facility (20 sources) Penicillins; Translations: [PENICILLINS] Allergy to substance 07-14-2017 [facility] (6 sources) Penicillin; Translations: [penicillin] Drug Allergy Unknown [facility] Medications Current Medications Medication Drug Class(es) Dates Sig (Normalized) Sig (Original) acetaminophen 325 mg / HYDROcodone bitartrate 5 mg oral tablet (3 sources) Opioid Agonist Start: 10-14-2024 End: 10-17-2024 take 1 tablet by mouth every six hours as needed Hydrocodone-Acetam inophen 5-325 mg tablet Active 1 TAB PO Every 6 hours as needed October 17, 2024 12:00am Complies with drug therapy Acidophilus Probiotic Blend (4 sources) Start: 06-22-2022 Acidophilus Probiotic Blend Oral, Daily, Refill(s) 0 Start Date: 06/22/22 Status: Ordered amitriptyline hydrochloride 50 mg oral tablet (20 sources) Tricyclic Antidepressant Start: 04-30-2023 End: 06-06-2025 take 1 tablet by mouth at bedtime amitriptyline (Elavil) 50 MG tablet Indications: Trigeminal neuralgia Take 1 tablet (50 mg) by mouth at bedtime 90 tablet 3 06/06/2024 06/06/2025 Active Start: 09-28-2022 take 2 tablets by mo [facility] once daily Amitriptyline 25 mg Tablet Active 50 MG PO Daily September 28, 2022 12:00am Complies with drug therapy Start: 09-28-2022 take 1 tablet by sara once daily Start: 08-15-2021 End: 09-28-2022 take 1 tablet by mouth once daily Amitriptyline 10 mg tablet Discontinued 10 MG PO Daily August 15, 2021 12:00am September 28, 2022 1:19pm Ascorbic Acid (4 sources) Vitamin C Start: 06-22-2022 Vitamin C Daily, Refills(s) 0 Start Date: 06/22/22 Status: Ordered clindamycin 300 mg oral capsule (3 sources) Lincosamide Antibacterial Start: 10-14-2024 End: 10-17-2024 take 1 capsule by mouth three times daily Clindamycin Hcl 300 mg capsule Active 300 MG PO Three times daily October 17, 2024 12:00am Complies with drug therapy Cranberry preparation (4 sources) Non-Standardized Food Allergenic [...] and dinner 180 capsule 3 10/22/2023 Active ketorolac tromethamine 10 mg oral tablet (4 sources) Nonsteroidal Anti-inflammatory Drug, Cyclooxygenase Inhibitor Start: 10-12-2024 End: 10-17-2024 take 1 tablet by mouth twice daily as needed Ketorolac 10 mg tablet Active 10 MG PO Twice daily as needed October 17, 2024 12:00am maximum total duration of 5 days from all oral, intranasal, or parenteral formulations Complies with drug therapy Pam Root (1 source) Start: 01-18-2024 Pam Root Apm Root Start Date: 01/18/24 Status: Ordered Melatonin (4 sources) Start: 06-22-2022 Melatonin Once a day (at bedtime), Refills(s) 0 Start Date: 06/22/22 Status: Ordered Multivitamin preparation (4 sources) Start: 06-22-2022 multivitamin Daily, Refill(s) 0 Start Date: 06/22/22 Status: Ordered [place]-3 oral capsule (4 sources) Start: 06-22-2022 [place]-3 oral capsule Refill(s) 0 Start Date: 06/22/22 [...] Refill(s) 0 Start Date: 06/22/22 Status: Ordered Vonoprazan (2 sources) Start: 10-14-2024 take 1 tablet by mouth once daily Vonoprazan (Voquezna) 20 mg tablet Active 20 MG PO Daily October 14, 2024 12:00am Complies with drug therapy Vonoprazan Fumarate (Voquezna) 20 MG tablet (2 sources) take 1 tablet by mouth once daily Vonoprazan Fumarate (Voquezna) 20 MG tablet Take 20 mg by mouth Daily Active zonisamide 25 mg oral capsule (20 sources) Anti-epileptic Agent Start: 07-27-2023 End: 06-06-2025 take 1 capsule by mouth in the morning zonisamide (Zonegran) 50 MG capsule Indications: Trigeminal neuralgia Take 1 capsule (50 mg) by mouth in the morning and 1 capsule (50 mg) before bedtime. 180 capsule 3 06/06/2024 06/06/2025 Active Start: 12-12-2022 take 1 capsule by mo uth in the morning zonisamide (Zonegran) 50 MG capsule Take 50 mg by mouth in the morning and 50 mg before bedtime. 0 12/12/2022 Active Start: 09-28-2022 End: 10-17-2024 take 1 capsule by mouth twice daily Zonisamide 25 mg capsule Active 50 MG PO Twice daily October 17, 2024 10:42am Complies with drug therapy Start: 09-28-2022 take 50 mg by mouth twice imelda y Zonisamide Active 50 MG PO Twice daily September 28, 2022 12:00am Completed/Discontinued Medications Medication Drug Class(es) Dates Sig (Normalized) Sig (Original) famotidine 20 mg oral tablet (11 sources) Histamine-2 Receptor Antagonist Start: 07-07-2023 End: 10-14-2024 take 1 tablet by mouth once daily at bedtime Famotidine 20 mg tablet Discontinued 20 MG PO Daily at bedtime 30 July 07, 2023 12:00am October 14, 2024 1:00pm Start: 12-28-2022 famotidine 20 mg Tab Refills(s) 0 Start Date: 12/28/22 Status: Ordered pantoprazole 40 mg delayed release oral tablet (20 sources) Proton Pump Inhibitor Start: 09-28-2022 End: 07-07-2023 take 1 tablet by mouth twice daily Pantoprazole 20 mg Tablet,Delayed Release (Dr/Ec) Discontinued 20 MG PO Twice daily September 28, 2022 12:00am July 07, 2023 1:56pm Start: 06-22-2022 End: 10-14-2024 take 1 tablet by mouth twice daily Pantoprazole 40 mg tablet,delayed release (DR/EC) Discontinued 40 MG PO Twice daily July 07, 2023 12:00am October 14, 2024 1:00pm Start: 08-15-2021 End: 09-28-2022 take 1 tablet by mouth once daily Pantoprazole 40 mg tablet,delayed release (DR/EC) Discontinued 40 MG PO Daily August 15, 2021 12:00am September 28, 2022 1:20pm Problems Active Problems Problem Classification Problem Date Documented Date Episodic/Chronic Abdominal pain (9 sources) Left flank pain; Translations: [Unspecified abdominal pain] Onset: 06-03-2022 06-22-2022 Episodic Asthma (5 sources) Asthma; Translations: [Unspecified asthma, uncomplicated] Onset: 08-10-2022 06-22-2022 Chronic Biliary tract disease (4 sources) Gallstone 06-22-2022 Episodic Calculus of urinary tract (11 sources) Kidney stone; Translations: [Calculus of kidney] Onset: 07-29-2022 06-22-2022 Episodic Diseases of mouth; excluding dental (2 sources) Sialoadenitis of the submandibular gland; Translations: [Sialoadenitis, unspecified] 10-14-2024 Episodic Esophageal disorders (20 sources) Gastroesophageal reflux disease; Translations: [Gastro-esophageal reflux disease without esophagitis] Onset: 09-29-2017 08-15-2021 Chronic Comment on above: Problem List clean-u p per request of Phys. EHR Cmte Headache; including migraine (20 sources) Migraine without aura, not refractory ; Translations: [Migraine without aura, not intractable, without status migrainosus] Onset: 11-04-2023 11-04-2023 Chronic Comment on above: Problem List clean-u p per request of Phys. EHR Cmte Headache; including migraine (1 source) Headache; including migraine; Translations: [Headache, unspecified] Onset: 10-12-2024 Mycoses (2 sources) Onychomycosis; Translations: [Tinea unguium] 04-20-2023 Episodic Nonspecific chest pain (20 sources) Chest pain, unspecified; Translations: [Chest pain] Onset: 07-12-2022 07-05-2023 Episodic Osteoarthritis (5 sources) Arthritis; Translations: [Unspecified osteoarthritis, unspecified site] Onset: 08-10-2022 06-22-2022 Chronic Other connective tissue disease (1 source) Pain in unspecified lower leg; Translations: [PAIN IN UNSPECIFIED LOWER LEG] Onset: 07-12-2022 Episodic Other connective tissue disease (2 sources) Pain of toes of bilateral feet; Translations: [Pain in right toe(s)] 04-20-2023 Episodic Other nervous system disorders (4 sources) Paresthesia of skin; Translations: [PARESTHESIA OF SKIN] Onset: 07-08-2022 Episodic Other nervous system disorders (4 sources) Trigeminal neuralgia; Translations: [Trigeminal neuralgia] 11-10-2023 Episodic Other nervous system disorders (3 sources) Right trigeminal neuralgia; Translations: [Trigeminal neuralgia] 10-12-2024 Episodic Other nervous system disorders (1 source) Trigeminal neuralgia; Translations: [Trigeminal neuralgia] Onset: 10-14-2024 Episodic Other nutritional; endocrine; and metabolic disorders (20 sources) Body mass index 30+ - obesity; Translations: [Body mass index (BMI) 32.0-32.9, adult] Onset: 03-18-2023 Resolved: 05-17-2023 03-18-2023 Chronic Other nutritional; endocrine; and metabolic disorders (18 sources) Obesity caused by energy imbalance; Translations: [Morbid (severe) obesity due to excess calories] Onset: 03-29-2024 03-29-2024 Chronic Other screening for suspected conditions (not mental disorders or infectious disease) (20 sources) Patient encounter status; Translations: [Encounter for screening for malignant neoplasm of colon] Onset: 06-16-2022 08-15-2021 Episodic Comment on above: Problem List clean-u p per request of Phys. EHR Cmte Other skin disorders (2 sources) Dystrophia unguium; Translations: [Nail dystrophy] 04-20-2023 Episodic Pulmonary heart disease (20 sources) Pulmonary hypertension; Translations: [Pulmonary hypertension, unspecified] Onset: 07-05-2023 12-27-2023 Chronic Residual codes; unclassified (1 source) Idiopathic sleep related nonobstructive alveolar hypoventilation; Translations: [Idiopathic sleep related nonobstructive alveolar hypoventilation] Onset: 04-06-2023 Chronic Residual codes; unclassified (20 sources) Hypoxia; Translations: [Idiopathic sleep related nonobstructive alveolar hypoventilation] Onset: 07-19-2023 07-19-2023 Chronic Residual codes; unclassified (18 sources) Hypersomnia; Translations: [Hypersomnia, unspecified] Onset: 11-04-2023 11-04-2023 Chronic Residual codes; unclassified (1 source) Family history of malignant neoplasm of breast; Translations: [FAMILY HX MALIG NEOPLASM OF BREAST] Onset: 06-20-2022 Episodic Residual codes; unclassified (20 sources) Disturbance in sleep behavior; Translations: [Sleep disorder, unspecified] Onset: 11-04-2023 11-04-2023 Episodic Unclassified (3 sources) CONTACT W/AND (SUSP) EXPOS COVID-19; Translations: [CONTACT W/AND (SUSP) EXPOS COVID-19] Onset: 12-25-2021 Past or Other Problems Problem Classification Problem Date Documented Da te Episodic/Chronic Diabetes mellitus without complication (8 sources) Hyperglycemia; Translations: [Hyperglycemia, unspecified] Onset: 04-19-2024 04-19-2024 Episodic Headache; including migraine (2 sources) Headache; Translations: [Nonintractable headache, unspecified chronicity pattern, unspecified headache type] 11-10-2023 Episodic Other diseases of kidney and ureters (11 sources) Abnormal renal function; Translations: [Disorder of kidney and ureter, unspecified] Onset: 04-19-2024 04-19-2024 Episodic Other nervous system disorders (18 sources) Paresthesia; Translations: [Paresthesia of skin] Onset: 11-04-2023 11-04-2023 Episodic Other upper respiratory infections (1 source) Acute upper respiratory infection, unspecified; Translations: [ACUTE UP RESPIRATORY INFECTION UNS] Onset: 12-25-2021 Episodic Pancreatic disorders (not diabetes) (20 sources) Pancreatitis; Translations: [Acute pancreatitis without necrosis or infection, unspecified] Onset: 09-26-2017 Resolved: 05-17-2023 12-18-2022 Episodic Unclassified (1 source) CONTACT W/AND (SUSP) EXPOS COVID-19; Translations: [CONTACT W/AND (SUSP) EXPOS COVID-19] Onset: 12-22-2021 Results Test Name Value Interpretation Reference Range Facility Alanine aminotransferase [En zymatic activity/volume] in Serum or PlasmaOrdered By: Rajinder Elliott on 10-14-2024 ALT [Catalytic activity/Vol] 23 U/L Normal 7-52 [facility] Comment on above: Performed By: #### C BC, ESR, CMP, CRP #### [facility] [address] [place] [address] Albumin [Mass/volume] in Ser um or Plasma by Bromocresol green (BCG) dye binding methoOrdered By: Rajinder Elliott on 10-14-2024 Albumin BCG dye [Mass/Vol] 4.6 g/dL 3.5-5.7 [facility] Alkaline phosphatase [Enzyma tic activity/volume] in Serum or PlasmaOrdered By: Rajinder Elliott on 10-14-2024 ALP [Catalytic activity/Vol] 80 U/L Normal 34-104 [facility] Comment on above: Performed By: #### C BC, ESR, CMP, CRP #### [facility] [address] [place] [address] [place] Aspartate aminotransferase [ Enzymatic activity/volume] in Serum or PlasmaOrdered By: Rajinder Elliott on 10-14-2024 AST [Catalytic activity/Vol] 18 U/L Normal 13-39 [facility] Comment on above: Performed By: #### C BC, ESR, CMP, CRP #### [facility] [address] Basophils [#/volume] in Bloo d by Automated countOrdered By: Rajinder Elliott on 10-14-2024 Basophils (Bld) [#/Vol] 0.0 10*3/uL Normal 0.0-0.2 [facility] Comment on above: Performed By: #### C BC, ESR, CMP, CRP #### [facility] [address] [place] [address] Basophils/100 leukocytes in Blood by Automated countOrdered By: Rajinder Elliott on 10-14-2024 Basophils/100 WBC (Bld) 0.2 % Normal . [facility] Comment on above: Performed By: #### C BC, ESR, CMP, CRP #### [facility] [address] [place] [address] Bilirubin.total [Mass/volume ] in Serum or PlasmaOrdered By: Rajinder Elliott on 10-14-2024 Bilirubin [Mass/Vol] 0.5 mg/dL Normal 0.3-1.0 [facility] Comment on above: Performed By: #### C BC, ESR, CMP, CRP #### [facility] [address] [place] [address] [place] C reactive protein [Mass/vol ume] in Serum or PlasmaOrdered By: Rajinder Elliott on 10-14-2024 CRP [Mass/Vol] 6.5 mg/dL High 0.0-0.5 [facility] C-Reactive Proteinon 025 C-Reactive Protein 6.5 mg/dL High 0.0-0.5 [facility] Comment on above: Result Comment: PERF ORMED BY: [place] [address] PATHOLOGIST SOCIAL SCIENCE INSTRUCTOR HARSHAL REY M.D. Performed By: #### C BC, ESR, CMP, CRP #### [facility] [address] [facility] soft tissue neck w con [facility] [address] [place] [address] [place] [address] CT Scan Report Signed Patient: Cinthia Badillo MR#: [id number] : 1970 Acct:[id number] Age/Sex: 54 / F ADM Date: 10/14/24 Loc: ER Room: Type: [facility] ER Attending Dr: Copies to: Rajinder Elliott DO Ordering Provider: Rajinder Elliott DO Date of Service: 10/14/24 CT/CT soft tissue neck w con: facial swelling with lower jaw pain CT soft tissue neck w con 10/14/2024 4:00 PM SIGNS AND SYMPTOMS: facial swelling with lower jaw pain CONTRAST: 90 mL of intravenous Visipaque 320 300 TECHNIQUE: Multidetector CT axial slices of the soft tissues of the neck were obtained with IV contrast. Sagittal and coronal reformats were reconstructed. CT was performed with one or more of the following dose reduction techniques: Automated exposure control, adjustment of the mA and/or kV according to patient size, or use of iterative reconstruction technique. COMPARISON: None FINDINGS: Soft tissues of the orbits are within normal limits. The soft tissues of the infratemporal fossa fossa structures show no acute abnormality. Mucosal surfaces of the nasopharynx, oropharynx, hypopharynx, glottic, and subglottic airways are grossly unremarkable. The parotid glands, left submandibular gland, and the thyroid gland are within normal limits. There is edema with adjacent fat stranding within and adjacent to the right submandibular gland suggesting sialoadenitis. There are a few adjacent prominent lymph nodes measuring up to 11 mm in short axis which may be inflammatory in nature. No evidence of salivary duct stone. The carotid and jugular circulations are within normal limits. The visualized lung parenchyma shows no acute pathology. No acute bony abnormalities are appreciated. The skull base, craniocervical junction, atlantoaxial joints are within normal limits. Polypoid mucosal thickening is noted in the left maxillary sinus. CT/CT soft tissue neck w con IMPRESSION: There is edema with adjacent fat stranding within and adjacent to the right submandibular gland suggesting sialoadenitis. There are a few adjacent prominent lymph nodes measuring up to 11 mm in short axis which may be inflammatory in nature. No evidence of salivary duct stone. Impression dictated by: Mike Gonzales M.D. 10/14/2024 4:15 PM Dictation Location: [place] [address] Transcribed By: [facility] 10/14/24 1615 Dictated By: Mike Gonzales II, MD 10/14/24 1607 Signed By: 10/14/24 1615 Normal [facility] Calcium [Mass/volume] in Ser um or PlasmaOrdered By: Rajinder Elliott on 10-14-2024 Calcium [Mass/Vol] 9.7 mg/dL Normal 8.6-10.3 [facility] Comment on above: Performed By: #### C BC, ESR, CMP, CRP #### [address] Carbon dioxide, total [Moles /volume] in Serum or PlasmaOrdered By: Rajinder Elliott on 10-14-2024 CO2 [Moles/Vol] 24.4 mmol/L Normal 21.0-31.0 [facility] Comment on above: Performed By: #### C BC, ESR, CMP, CRP #### [address] Chloride [Moles/volume] in S jonatan or PlasmaOrdered By: Rajinder Elliott on 10-14-2024 Chloride [Moles/Vol] 107 mmol/L Normal 98-107 [facility] Comment on above: Performed By: #### C BC, ESR, CMP, CRP #### [place] [address] [place] Complete Blood Count Auto Di ffon 10-14-2024 Mean Corpuscular HGB Conc 33.6 g/dL Normal 32.0-35.0 [facility] Comment on above: Performed By: #### C BC, ESR, CMP, CRP #### [address] [place] [address] [place] Monocytes/100 WBC (Bld) 22.19 % High 0.00-20.00 [facility] Comment on above: Result Comment: For adults in ED, MDW > 20.0 may be associated with a higher risk of sepsis during the first 12 hrs of hospital admission Performed By: #### C BC, ESR, CMP, CRP #### [address] NRBC% 0.1 /100{WBC} Normal 0-0.5 [facility] Comment on above: Performed By: #### C BC, ESR, CMP, CRP #### [address] White Blood Count 12.1 [CFU]/mL High 3.8-11.6 [facility] Comment on above: Performed By: #### C BC, ESR, CMP, CRP #### [address] Comprehensive Metabolic Pane minda 10-14-2024 Albumin [Mass/Vol] 4.6 g/dL Normal 3.5-5.7 [facility] Comment on above: Performed By: #### C BC, ESR, CMP, CRP #### [address] Creatinine Clr Calc Pharmacy 62.68 Normal [facility] Comment on above: Performed By: #### C BC, ESR, CMP, CRP #### [address] GFR/1.73 sq M.predicted MDRD (S/P/Bld) [Vol rate/Area] 55.797 mL/min/{1.73_m2} Normal [facility] Comment on above: Performed By: #### C BC, ESR, CMP, CRP #### [address] Creatinine [Mass/volume] in Serum or PlasmaOrdered By: Rajinder Elliott on 10-14-2024 Creatinine [Mass/Vol] 1.17 mg/dL Normal 0.60-1.20 [facility] Comment on above: Performed By: #### C BC, ESR, CMP, CRP #### [facility] [address] [place] [address] [place] Eosinophils [#/volume] in Bl ood by Automated countOrdered By: Rajinder Elliott on 10-14-2024 Eosinophils (Bld) [#/Vol] 0.0 10*3/uL Normal 0.0-0.45 [facility] Comment on above: Performed By: #### C BC, ESR, CMP, CRP #### [facility] [address] Eosinophils/100 leukocytes i n Blood by Automated countOrdered By: Rajinder Elliott on 10-14-2024 Eosinophils/100 WBC (Bld) 0.2 % Normal . [facility] Comment on above: Performed By: #### C BC, ESR, CMP, CRP #### [address] Erythrocyte Sedimentation Ra panfilo 10-14-2024 ESR (Bld) [Velocity] 40 mm/h High 0-29 [facility] Comment on above: Result Comment: PERF ORMED BY: [place] [address] PATHOLOGIST SOCIAL SCIENCE INSTRUCTOR HARSHAL REY M.D. Performed By: #### C BC, ESR, CMP, CRP #### [address] Erythrocyte distribution wid th [Ratio] by Automated countOrdered By: Rajinder Elliott on 10-14-2024 Erythrocyte distribution width (RBC) [Ratio] 13.8 % Normal 11.9-15.3 [facility] Comment on above: Performed By: #### C BC, ESR, CMP, CRP #### [address] Erythrocyte sedimentation ra te by Photometric methodOrdered By: Rajinder Elliott on 10-14-2024 ESR Photometric method (Bld) [Velocity] 40 mm/hr High 0-29 [facility] Erythrocytes [#/volume] in B lood by Automated countOrdered By: Rajinder Elliott on 10-14-2024 RBC (Bld) [#/Vol] 5.18 10*6/uL High 3.60-5.00 [facility] Comment on above: Performed By: #### C BC, ESR, CMP, CRP #### [facility] [address] Glucose [Mass/volume] in Ser um or PlasmaOrdered By: Rajinder Elliott on 10-14-2024 Glucose [Mass/Vol] 103 mg/dL High 70-100 [facility] Comment on above: ADA recommended refe rence rangeRandom Glucose Reference Range is dependent on time and content of last meal. Glucose of more than 200 mg/dL in a nonstressed, ambulatory subject supports the diagnosis of Diabetes Mellitus. Result Comment: [place] [facility] Glucose Reference Range is dependent on time and content of last meal. Glucose of more than 200 mg/dL in a nonstressed, ambulatory subject supports the diagnosis of Diabetes Mellitus. ADA recommended reference range Performed By: #### C BC, ESR, CMP, CRP #### [facility] [address] [place] [address] Hematocrit [Volume Fraction] of Blood by Automated countOrdered By: Rajinder Elliott on 10-14-2024 Hematocrit (Bld) [Volume fraction] 44.6 % Normal 34.0-46.4 [facility] Comment on above: Performed By: #### C BC, ESR, CMP, CRP #### [facility] [address] [place] [address] [place] Hemoglobin [Mass/volume] in BloodOrdered By: Rajinder Elliott on 10-14-2024 Hemoglobin (Bld) [Mass/Vol] 15.0 g/dL Normal 11.8-15.4 [facility] Comment on above: Performed By: #### C BC, ESR, CMP, CRP #### [facility] [address] [place] [address] [place] Leukocytes [#/volume] correc genaro for nucleated erythrocytes in Blood by Automated counOrdered By: Rajinder Elliott on 10-14-2024 WBC corrected for nucl RBC Auto (Bld) [#/Vol] 12.1 10*3/uL High 3.8-11.6 [facility] Leukocytes [#/volume] in Blo od by Automated countOrdered By: Rajinder Elliott on 10-14-2024 WBC (Bld) [#/Vol] 12.1 10*3/uL High 3.8-11.6 [facility] Comment on above: Performed By: #### C BC, ESR, CMP, CRP #### [facility] [address] Lymphocytes [#/volume] in Bl ood by Automated countOrdered By: Rajinder Elliott on 10-14-2024 Lymphocytes (Bld) [#/Vol] 1.5 10*3/uL Normal 1.00-4.8 [facility] Comment on above: Performed By: #### C BC, ESR, CMP, CRP #### [facility] [address] [place] [address] Lymphocytes/100 leukocytes i n Blood by Automated countOrdered By: Rajinder Elliott on 10-14-2024 Lymphocytes/100 WBC (Bld) 12.4 % Normal . [facility] Comment on above: Performed By: #### C BC, ESR, CMP, CRP #### [facility] [address] [place] [address] MCH [Entitic mass] by Automa genaro countOrdered By: Rajinder Elliott on 10-14-2024 MCH (RBC) [Entitic mass] 29.0 pg Normal 24.7-34.3 [facility] Comment on above: Performed By: #### C BC, ESR, CMP, CRP #### [facility] [address] [place] [address] MCHC Auto (RBC) [Mass/Vol]Or dered By: Rajinder Elliott on 10-14-2024 MCHC (RBC) [Mass/Vol] 33.6 g/dL 32.0-35.0 [facility] MCV [Entitic volume] by Auto mated countOrdered By: Rajinder Elliott on 08-02-2025 MCV (RBC) [Entitic vol] 86.1 fL Normal 80-100 [facility] Comment on above: Performed By: #### C BC, ESR, CMP, CRP #### [address] Monocyte distribution width [Entitic volume] in Blood by AutomatedOrdered By: Rajinder Pattersona on 10-14-2024 Monocyte distribution width Auto (Bld) [Entitic vol] 22.19 % High 0.00-20.00 [facility] Comment on above: For adults in ED, MD W > 20.0 may be associated with a higher risk of sepsis during the first 12 hrs of hospital admission Monocytes [#/volume] in Bloo d by Automated countOrdered By: Rajinder Elliott on 10-14-2024 Monocytes (Bld) [#/Vol] 0.7 10*3/uL Normal 0.0-0.8 [facility] Comment on above: Performed By: #### C BC, ESR, CMP, CRP #### [facility] [address] [place] [address] [place] Monocytes/100 leukocytes in Blood by Automated countOrdered By: Rajinder Pattersona on 10-14-2024 Monocytes/100 WBC (Bld) 6.0 % Normal . [facility] Comment on above: Performed By: #### C BC, ESR, CMP, CRP #### [facility] [address] [place] [address] [place] Neutrophils [#/volume] in Bl ood by Automated countOrdered By: Rajinder Elliott on 10-14-2024 Neutrophils (Bld) [#/Vol] 9.8 10*3/uL High 1.8-7.7 [facility] Comment on above: Performed By: #### C BC, ESR, CMP, CRP #### [facility] [address] [place] [address] [place] Neutrophils/100 leukocytes i n Blood by Automated countOrdered By: Nidal Yeseniaa on 10-14-2024 Neutrophils/100 WBC (Bld) 81.2 % Normal . [facility] Comment on above: Performed By: #### C BC, ESR, CMP, CRP #### [facility] [address] No Panel InformationOrdered By: Rajinder Elliott on 10-14-2024 Estimated GFR (CKD-EPI) 55.797 mL/Min [facility] Creatinine Clearance (Chem 62.68 [facility] Nucleated erythrocytes [Pres ence] in Blood by Automated countOrdered By: Rajinder Elliott on 10-14-2024 Nucleated RBC Auto Ql (Bld) 0.1 /100{WBC} 0-0.5 [facility] Platelet mean volume [Entiti c volume] in Blood by Automated countOrdered By: Rajinder Elliott on 10-14-2024 Platelet mean volume (Bld) [Entitic vol] 8.6 fL Normal 6.3-10.7 [facility] Comment on above: Performed By: #### C BC, ESR, CMP, CRP #### [facility] [address] [place] [address] [place] Platelets [#/volume] in Bloo d by Automated countOrdered By: Rajinder Elliott on 10-14-2024 Platelets (Bld) [#/Vol] 256 10*3/uL Normal 150-450 [facility] Comment on above: Performed By: #### C BC, ESR, CMP, CRP #### [place] [address] [place] Potassium [Moles/volume] in Serum or PlasmaOrdered By: Rajinder Elliott on 10-14-2024 Potassium [Moles/Vol] 4.1 mmol/L Normal 3.5-5.1 [facility] Comment on above: Performed By: #### C BC, ESR, CMP, CRP #### [facility] [address] [place] [address] [place] Protein [Mass/volume] in Ser um or PlasmaOrdered By: Rajinder Elliott on 10-14-2024 Protein [Mass/Vol] 8.3 g/dL Normal 6.4-8.9 [facility] Comment on above: Performed By: #### C BC, ESR, CMP, CRP #### [facility] [address] Serum globulin measurement b y calculation (mass/volume)Ordered By: Rajinder Elliott on 10-14-2024 Globulin (S) [Mass/Vol] 3.7 g/dL [facility] Comment on above: Performed By: #### C BC, ESR, CMP, CRP #### [facility] [address] Serum or plasma albumin/glob ulin mass ratioOrdered By: Rajinder Elliott on 10-14-2024 Albumin/Globulin [Mass ratio] 1.2 {ratio} [facility] Comment on above: Performed By: #### C BC, ESR, CMP, CRP #### [address] Serum or plasma anion gap de terminationOrdered By: Rajinder Elliott on 10-14-2024 Anion gap [Moles/Vol] 11.7 mmol/L Normal 6.0-15.0 [facility] Comment on above: Performed By: #### C BC, ESR, CMP, CRP #### [facility] [address] [place] [address] Sodium [Moles/volume] in Ser um or PlasmaOrdered By: Rajinder Elliott on 10-14-2024 Sodium [Moles/Vol] 139 mmol/L Normal 136-145 [facility] Comment on above: Performed By: #### C BC, ESR, CMP, CRP #### [facility] [address] Urea nitrogen [Mass/volume] in Serum or PlasmaOrdered By: Rajinder Elliott on 10-14-2024 Urea nitrogen [Mass/Vol] 20 mg/dL Normal 7-25 [facility] Comment on above: Performed By: #### C BC, ESR, CMP, CRP #### [facility] [address] Basic Metabolic Panelon 07-3 Creatinine Clr Calc Pharmacy 67.66 Normal [facility] Comment on above: Performed By: #### C BC, CRP, ESR, BMP #### [facility] [address] [place] [address] [place] GFR/1.73 sq M.predicted MDRD (S/P/Bld) [Vol rate/Area] mL/min/{1.73_m2} Normal [facility] Comment on above: Performed By: #### C BC, CRP, ESR, BMP #### [facility] [address] [place] [address] [place] Basophils [#/volume] in Bloo d by Automated countOrdered By: Katty Manuel on 10-12-2024 Basophils (Bld) [#/Vol] 0.1 10*3/uL Normal 0.0-0.2 [facility] Comment on above: Performed By: #### C BC, CRP, ESR, BMP #### [place] [address] [place] Basophils/100 leukocytes in Blood by Automated countOrdered By: Kattyjaquan Jackson on 10-12-2024 Basophils/100 WBC (Bld) 0.9 % Normal . [facility] Comment on above: Performed By: #### C BC, CRP, ESR, BMP #### [place] [address] [place] C reactive protein [Mass/vol ume] in Serum or PlasmaOrdered By: Katty Manuel on 10-12-2024 CRP [Mass/Vol] < 0.5 mg/dL 0.0-0.5 [facility] C-Reactive Proteinon 025 CRP [Mass/Vol] mg/L Normal 0.0-0.5 [facility] Comment on above: Result Comment: PERF ORMED BY: [place] [address] PATHOLOGIST SOCIAL SCIENCE INSTRUCTOR HARSHAL REY M.D. Performed By: #### C BC, CRP, ESR, BMP #### [place] [address] [place] Calcium [Mass/volume] in Ser um or PlasmaOrdered By: Katty Manuel on 10-12-2024 Calcium [Mass/Vol] 9.3 mg/dL Normal 8.6-10.3 [facility] Comment on above: Performed By: #### C BC, CRP, ESR, BMP #### [address] Carbon dioxide, total [Moles /volume] in Serum or PlasmaOrdered By: Katty Jackson on 10-12-2024 CO2 [Moles/Vol] 24.5 mmol/L Normal 21.0-31.0 [facility] Comment on above: Performed By: #### C BC, CRP, ESR, BMP #### [address] Chloride [Moles/volume] in S jonatan or PlasmaOrdered By: Katty Jackson on 10-12-2024 Chloride [Moles/Vol] 108 mmol/L High 98-107 [facility] Comment on above: Performed By: #### C BC, CRP, ESR, BMP #### [address] Complete Blood Count Auto Di ffon 10-12-2024 Mean Corpuscular HGB Conc 33.1 g/dL Normal 32.0-35.0 [facility] Comment on above: Performed By: #### C BC, CRP, ESR, BMP #### [address] Monocytes/100 WBC (Bld) 18.78 % Normal 0.00-20.00 [facility] Comment on above: Performed By: #### C BC, CRP, ESR, BMP #### [address] NRBC% 0.1 /100{WBC} Normal 0-0.5 [facility] Comment on above: Performed By: #### C BC, CRP, ESR, BMP #### [address] White Blood Count 7.7 [CFU]/mL Normal 3.8-11.6 [facility] Comment on above: Performed By: #### C BC, CRP, ESR, BMP #### [place] [id number] [place] Creatinine [Mass/volume] in Serum or PlasmaOrdered By: Katty Jackson on 10-12-2024 Creatinine [Mass/Vol] 1.09 mg/dL Normal 0.60-1.20 [facility] Comment on above: Performed By: #### C BC, CRP, ESR, BMP #### [facility] [address] [place] [address] [place] Eosinophils [#/volume] in Bl ood by Automated countOrdered By: Katty Jackson on 10-12-2024 Eosinophils (Bld) [#/Vol] 0.1 10*3/uL Normal 0.0-0.45 [facility] Comment on above: Performed By: #### C BC, CRP, ESR, BMP #### [place] [address] [place] Eosinophils/100 leukocytes i n Blood by Automated countOrdered By: Katty Jackson on 10-12-2024 Eosinophils/100 WBC (Bld) 1.8 % Normal . [facility] Comment on above: Performed By: #### C BC, CRP, ESR, BMP #### [address] Erythrocyte Sedimentation Ra panfilo 10-12-2024 ESR (Bld) [Velocity] 23 mm/h Normal 0-29 [facility] Comment on above: Result Comment: PERF ORMED BY: [place] [address] PATHOLOGIST SOCIAL SCIENCE INSTRUCTOR HARSHAL REY M.D. Performed By: #### C BC, CRP, ESR, BMP #### [place] [address] [place] Erythrocyte distribution wid th [Ratio] by Automated countOrdered By: Katty Jackson on 10-12-2024 Erythrocyte distribution width (RBC) [Ratio] 13.6 % Normal 11.9-15.3 [facility] Comment on above: Performed By: #### C BC, CRP, ESR, BMP #### [address] Erythrocyte sedimentation ra te by Photometric methodOrdered By: Katty Jackson on 10-12-2024 ESR Photometric method (Bld) [Velocity] 23 mm/hr 0-29 [facility] Erythrocytes [#/volume] in B lood by Automated countOrdered By: Katty Jackson on 10-12-2024 RBC (Bld) [#/Vol] 5.15 10*6/uL High 3.60-5.00 [facility] Comment on above: Performed By: #### C BC, CRP, ESR, BMP #### [facility] [address] Glucose [Mass/volume] in Ser um or PlasmaOrdered By: Katty Jackson on 10-12-2024 Glucose [Mass/Vol] 98 mg/dL Normal 70-100 [facility] Comment on above: ADA recommended refe rence rangeRandom Glucose Reference Range is dependent on time and content of last meal. Glucose of more than 200 mg/dL in a nonstressed, ambulatory subject supports the diagnosis of Diabetes Mellitus. Result Comment: [place] [facility] Glucose Reference Range is dependent on time and content of last meal. Glucose of more than 200 mg/dL in a nonstressed, ambulatory subject supports the diagnosis of Diabetes Mellitus. ADA recommended reference range Performed By: #### C BC, CRP, ESR, BMP #### [facility] [address] [place] [address] [place] Hematocrit [Volume Fraction] of Blood by Automated countOrdered By: Katty Jackson on 10-12-2024 Hematocrit (Bld) [Volume fraction] 44.4 % Normal 34.0-46.4 [facility] Comment on above: Performed By: #### C BC, CRP, ESR, BMP #### [facility] [address] [place] [address] [place] Hemoglobin [Mass/volume] in BloodOrdered By: Katty Jackson on 10-12-2024 Hemoglobin (Bld) [Mass/Vol] 14.7 g/dL Normal 11.8-15.4 [facility] Comment on above: Performed By: #### C BC, CRP, ESR, BMP #### [facility] [address] [place] [address] [place] Leukocytes [#/volume] correc genaro for nucleated erythrocytes in Blood by Automated counOrdered By: Katty Jackson on 10-12-2024 WBC corrected for nucl RBC Auto (Bld) [#/Vol] 7.7 10*3/uL 3.8-11.6 [facility] Leukocytes [#/volume] in Blo od by Automated countOrdered By: Katty Jackson on 10-12-2024 WBC (Bld) [#/Vol] 7.7 10*3/uL Normal 3.8-11.6 [facility] Comment on above: Performed By: #### C BC, CRP, ESR, BMP #### [facility] [address] [place] [address] Lymphocytes [#/volume] in Bl ood by Automated countOrdered By: Katty Jackson on 10-12-2024 Lymphocytes (Bld) [#/Vol] 1.9 10*3/uL Normal 1.00-4.8 [facility] Comment on above: Performed By: #### C BC, CRP, ESR, BMP #### [facility] [address] [place] [address] Lymphocytes/100 leukocytes i n Blood by Automated countOrdered By: Katty Jackson on 10-12-2024 Lymphocytes/100 WBC (Bld) 24.2 % Normal . [facility] Comment on above: Performed By: #### C BC, CRP, ESR, BMP #### [facility] [address] [place] [address] MCH [Entitic mass] by Automa genaro countOrdered By: Katty Jackson on 10-12-2024 MCH (RBC) [Entitic mass] 28.5 pg Normal 24.7-34.3 [facility] Comment on above: Performed By: #### C BC, CRP, ESR, BMP #### [facility] [address] [place] [address] MCHC Auto (RBC) [Mass/Vol]Or dered By: Katty Jackson on 10-12-2024 MCHC (RBC) [Mass/Vol] 33.1 g/dL 32.0-35.0 [facility] MCV [Entitic volume] by Auto mated countOrdered By: Kattyjaquan Kentb on 10-12-2024 MCV (RBC) [Entitic vol] 86.2 fL Normal 80-100 [facility] Comment on above: Performed By: #### C BC, CRP, ESR, BMP #### [address] Monocyte distribution width [Entitic volume] in Blood by AutomatedOrdered By: Katty Manuel on 10-12-2024 Monocyte distribution width Auto (Bld) [Entitic vol] 18.78 % 0.00-20.00 [facility] Monocytes [#/volume] in Bloo d by Automated countOrdered By: Katty Manuel on 10-12-2024 Monocytes (Bld) [#/Vol] 0.4 10*3/uL Normal 0.0-0.8 [facility] Comment on above: Performed By: #### C BC, CRP, ESR, BMP #### [place] [address] [place] Monocytes/100 leukocytes in Blood by Automated countOrdered By: Katty Manuel on 10-12-2024 Monocytes/100 WBC (Bld) 5.3 % Normal . [facility] Comment on above: Performed By: #### C BC, CRP, ESR, BMP #### [place] [address] [place] Neutrophils [#/volume] in Bl ood by Automated countOrdered By: Kattyjaquan Kentb on 10-12-2024 Neutrophils (Bld) [#/Vol] 5.2 10*3/uL Normal 1.8-7.7 [facility] Comment on above: Performed By: #### C BC, CRP, ESR, BMP #### [place] [address] [place] Neutrophils/100 leukocytes i n Blood by Automated countOrdered By: Katty Manuel on 10-12-2024 Neutrophils/100 WBC (Bld) 67.8 % Normal . [facility] Comment on above: Performed By: #### C BC, CRP, ESR, BMP #### [place] [address] [place] No Panel InformationOrdered By: Katty Jackson on 10-12-2024 Estimated GFR (CKD-EPI) > 60.0 mL/Min [facility] Creatinine Clearance (Chem 67.66 [facility] Nucleated erythrocytes [Pres ence] in Blood by Automated countOrdered By: Katty Jackson on 10-12-2024 Nucleated RBC Auto Ql (Bld) 0.1 /100{WBC} 0-0.5 [facility] Platelet mean volume [Entiti c volume] in Blood by Automated countOrdered By: Ktaty Jackson on 10-12-2024 Platelet mean volume (Bld) [Entitic vol] 8.3 fL Normal 6.3-10.7 [facility] Comment on above: Performed By: #### C BC, CRP, ESR, BMP #### [facility] [address] [place] [address] Platelets [#/volume] in Bloo d by Automated countOrdered By: Katty Jackson on 10-12-2024 Platelets (Bld) [#/Vol] 272 10*3/uL Normal 150-450 [facility] Comment on above: Performed By: #### C BC, CRP, ESR, BMP #### [facility] [address] [place] [address] [place] Potassium [Moles/volume] in Serum or PlasmaOrdered By: Katty Jackson on 10-12-2024 Potassium [Moles/Vol] 4.0 mmol/L Normal 3.5-5.1 [facility] Comment on above: Performed By: #### C BC, CRP, ESR, BMP #### [facility] [address] [place] [address] Serum or plasma anion gap de terminationOrdered By: Katty Jackson on 10-12-2024 Anion gap [Moles/Vol] 11.5 mmol/L Normal 6.0-15.0 [facility] Comment on above: Performed By: #### C BC, CRP, ESR, BMP #### [facility] [address] [place] [address] [place] Sodium [Moles/volume] in Ser um or PlasmaOrdered By: Katty Jackson on 10-12-2024 Sodium [Moles/Vol] 140 mmol/L Normal 136-145 [facility] Comment on above: Performed By: #### C BC, CRP, ESR, BMP #### [facility] [address] Urea nitrogen [Mass/volume] in Serum or PlasmaOrdered By: Katty Jackson on 10-12-2024 Urea nitrogen [Mass/Vol] 20 mg/dL Normal 7-25 [facility] Comment on above: Performed By: #### C BC, CRP, ESR, BMP #### [facility] [address] ALL CBC WITH AUTO DIFFon BASOPHILS ABSOLUTE AUTO 0 [facility] Basophils/100 WBC (Bld) 0.4 % 0.2 - 2.0 % [facility] Eosinophils/100 WBC (Bld) 2.7 % 0.9 - 7.0 % [facility] Erythrocyte distribution width (RBC) [Ratio] 13.6 % 11.0 - 15.0 % [facility] Hematocrit (Bld) [Volume fraction] 40.7 % 36.0 - 48.0 % [facility] Hemoglobin (Bld) [Mass/Vol] 13.5 g/dL 12.0 - 16.0 g/dL [facility] IMMATURE GRANULOCYTES ABS AUTO 0.02 [facility] Immature granulocytes/100 WBC (Bld) 0.3 % 0.0 - 0.5 % [facility] Interpretation and review of laboratory results Abnormal [facility] LYMPHOCYTES ABSOLUTE AUTO 2.3 [facility] Lymphocytes/100 WBC (Bld) 30.6 % 20.5 - 60.0 % [facility] MCH (RBC) [Entitic mass] 28.8 pg 26.7 - 34.0 pg [facility] MCHC (RBC) [Mass/Vol] 33.2 g/dL 29.9 - 35.2 g/dL [facility] MCV (RBC) [Entitic vol] 87 fL 81.0 - 99.0 fL [facility] MONOCYTES ABSOLUTE AUTO 0.4 [facility] Monocytes/100 WBC (Bld) 5.3 % 1.7 - 12.0 % [facility] NEUTROPHILS ABSOLUTE AUTO 4.5 [facility] Neutrophils/100 WBC (Bld) 60.7 % 43.0 - 75.0 % [facility] Platelet mean volume (Bld) [Entitic vol] 9.4 fL Low 9.5 - 13.5 fL [facility] TBH EO # 0.2 [facility] TB PLT [facility] RBC 4.68 [facility] WBC 7.4 [facility] Ambulatory Visit Summaryon 1 03-19-2023 Ambulatory Visit [...] Soft Calcium Chews) omega-3 polyunsaturated fatty acids ([place]-3 oral capsule) pantoprazole (Pantoprazole [address] [...] Schedule the Following Appointments Follow Up with GENNA Carias APRN, Sena Ames, FAM, URL When: Medications What How Much [...] or concerns Unchanged omega-3 polyunsaturated fatty acids ([place]-3 oral capsule) Contact prescribing physician if questions [...] need t (more content not included)... Normal [facility] Reminderson 01-18-2024 Reminders Reminders From: Carin Almanzar To: EU - Administrative; Sent: 01/18/2024 15:56:07 EST Show up: 07/13/2024 15:56:00 EDT Subject: 1 yr f/u Due Date/Time: 01/13/2025 15:55:00 EDT Reminder/Recall Patient needs scheduled with AO for a 1 yr f/u with KUB Normal [facility] Urology Office/Clinic Noteon 01-18-2024 Urology Office/Clinic Note [...] with voice recognition artificial intelligence software, specifically [employer], [employer] and or [employer]. 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 Medications Acidophilus Probiotic Blend, Oral, Daily amitriptyline 50 mg Tab Cranberry Pam Root Melatonin, Once a day (at bedtime) multivitamin, Daily [place]-3 oral capsule Pantoprazole [address] Tab [...] Comments influenza, unspecified formulation 12/27/2022 Recorded SARSCoV2 mRNA(yeyjzcbmi-xymd-tapudi) vac 10/09/2021 Recorded SARS-CoV-2 (COVID-19) mRNA BNT-162b2 vax 02/13/2021 Recorded SARS-CoV-2 (COVID-19) mRNA BNT-162b2 vax 05/08/2020 Recorded 2022-06-22: TPV40 SARS-CoV-2 (COVID-19) mRNA BNT-162b2 vax 04/06/2020 Recorded 2022-06-22: TPV40 SARS-CoV-2 (COVID-19) mRNA BNT-162b2 vax 04/02/2020 Recorded 2022-06-22: TPV40 diphtheria/pertussis, acel/tetanus adult 07/17/2009 Recorded Lab Results Ambulatory Point of Car (more content not included)... [facility] Comment on above: Result Comment: Elec tronically Signed By: GENNA Carias APRN, [place] X\.br\Date and Time Signed: 01/18/24 15:57 EST Provider Letteron 11-29-2023 Provider Letter Provider Letter November 29, 2023 CINTHIA BADILLO [address] [place] [address] : 1970 Dear Cinthia, We have been [...] to this matter. Sincerely, [facility] [address] [facility], [place] [address] [facility] Neurology Forms- [facility]on Neurology Forms- Text [id number] [facility] Consent for Treatmenton Consent for Treatment [id number]#[id number] [facility] Ammonium urate crystals dete ction in stone by infrared spectroscopyOrdered By: Anand Lopez on 08-13-2022 Ammonium urate crystals Infrared spectroscopy Ql (Stone) N/A [facility] Calcium bilirubinate measure mentOrdered By: Anand Lopez on 08-13-2022 Calcium bilirubinate (Stone) [Mass fraction] N/A [facility] Calcium carbonate measuremen tOrdered By: Anand Lopez on 08-13-2022 Calcium carbonate (Stone) [Mass fraction] N/A [facility] Calcium hydrogen phosphate d ihydrate/Total in StoneOrdered By: Anand Lopez on 08-13-2022 Calcium hydrogen phosphate dihydrate (Stone) [Mass fraction] N/A [facility] Calcium oxalate dihydrate cr ystals detection in stone by infrared spectroscopyOrdered By: Anand Lopez on 08-13-2022 Calcium oxalate dihydrate crystals Infrared spectroscopy Ql (Stone) 10 % . [facility] Calcium oxalate monohydrate/ Total in StoneOrdered By: Anand Lopez on 08-13-2022 Calcium oxalate monohydrate (Stone) [Mass fraction] 90 % . [facility] Calcium phosphate measuremen tOrdered By: Anand Lopez on 08-13-2022 Calcium phosphate (Stone) [Mass fraction] N/A [facility] Calculus analysis interpreta tion in stoneOrdered By: Anand Lopez on 08-13-2022 Calculus analysis [Interp] N/A [facility] Calculus analysis [Interp] See comment . [facility] Comment on above: Calculus received we t. Wet calculi must be dried beforeanalysis, which delays reporting of results. Leaving calculiwet (such as water, saline, blood, urine) may lead tochanges in composition. Physician questions regarding Calculi Analysis contact[facility] at: [phone]. Calculi report will follow via computer, mail or courierdelivery. Calculus analysis with calcu sabrina photography interpretation in stoneOrdered By: Anand Lopez on 08-13-2022 Calculus analysis with calculus photography [Interp] See comment . [facility] Comment on above: Photograph will foll ow under a separate cover Cellular material measuremen t in stone by estimated (mass/mass)Ordered By: Anand Lopez on 08-13-2022 Cellular material Est (Stone) [Mass/Mass] N/A [facility] Cholesterol/Total in StoneOr dered By: Anand Lopez on 08-13-2022 Cholesterol (Stone) [Mass fraction] N/A [facility] Composition of stoneOrdered By: Anand Lopez on 08-13-2022 Composition Nom (Stone) See comment . [facility] Comment on above: Percentage (Represen ts the % composition) Cystine measurementOrdered B y: Anand Lopez on 08-13-2022 Cystine (Unsp spec) [Moles/Vol] N/A [facility] Determination of color of ca lculusOrdered By: Anand Lopez on 08-13-2022 Color (Stone) Brown . [facility] Hydroxyapatite [Energy Diffe rence] in 24 hour UrineOrdered By: Anand Lopez on 08-13-2022 Hydroxyapatite (24H U) [Energy diff] N/A [facility] Measurement of proportion of calculus composed of dried blood (mass/mass)Ordered By: Anand Lopez on 08-13-2022 Blood.dried (Stone) [Mass fraction] N/A [facility] Newberyite/Total in StoneOrd ered By: Anand Lopez on 08-13-2022 Newberyite (Stone) [Mass fraction] N/A [facility] No Panel InformationOrdered By: Anand Lopez on 08-13-2022 Stone 2,8 Dihydroxyadenine N/A [facility] Stone Analysis Disclaimer See comment . [facility] Comment on above: This test was develo ped and its performance characteristicsdetermined by [employer]. It has not been cleared or approvedby the Food and Drug Administration.Performed at: [facility] [id number] Director: Mike Valladares PhD, Phone: [phone] Stone Bilirubinate N/A [facility] Stone Calcium Palmitate N/A [facility] Stone Calcium Stearate N/A [facility] Stone Carbonate Apatite N/A [facility] Stone Drug or Metabolite N/A [facility] Stone Other Constituent N/A [facility] Stone Xanthine N/A [facility] Size [Entitic volume] of Sto neOrdered By: Anand Lopez on 08-13-2022 Size (Stone) [Entitic vol] 4x4 mm . [facility] Comment on above: Multiple pieces rece ived. Dimensions of the largest piecereported. Sodium urate crystals detect ion in stone by infrared spectroscopyOrdered By: Anand Lopez on 08-13-2022 Sodium urate crystals Infrared spectroscopy Ql (Stone) N/A [facility] Specimen source subject [Typ e]Ordered By: Anand Lopez on 08-13-2022 Specimen source subject Nom See comment . [facility] Comment on above: Left Kidney Triamterene measurement in c alculusOrdered By: Anand Lopez on 08-13-2022 Triamterene (Stone) [Mass fraction] N/A [facility] Triple phosphate/Total in St oneOrdered By: Anand Lopez on 08-13-2022 Triple phosphate (Stone) [Mass fraction] N/A [facility] Uric acid dihydrate crystals detection in stone by infrared spectroscopyOrdered By: Anand Lopez on 08-13-2022 Urate dihydrate crystals Infrared spectroscopy Ql (Stone) N/A [facility] CBC AUTO DIFFon 08-07-2022 BASO # 0.0 103/ul Normal 0.0-0.1 [facility] Comment on above: Performed By: #### P TT, PT #### [facility] [address] [place] [address] Dr. Judy Ramirez Basophils/100 WBC (Bld) 0.5 % Normal 0.2-2.0 [facility] Comment on above: Performed By: #### P TT, PT #### [facility] [address] [place] [address] Dr. Judy Ramirez EO # 0.1 103/ul Normal 0.0-0.7 [facility] Comment on above: Performed By: #### P TT, PT #### [facility] [address] [place] [address] Dr. Judy Ramirez Eosinophils/100 WBC (Bld) 1.6 % Normal 0.9-7.0 [facility] Comment on above: Performed By: #### P TT, PT #### [facility] [address] [place] [address] Dr. Judy Ramirez Erythrocyte distribution width (RBC) [Ratio] 12.8 % Normal 11.0-15.0 [facility] Comment on above: Performed By: #### P TT, PT #### [facility] [address] [place] [address] Dr. Judy Ramirez Hematocrit (Bld) [Volume fraction] 40.7 % Normal 36.0-48.0 [facility] Comment on above: Performed By: #### P TT, PT #### [facility] [address] [place] [address] Dr. Judy Ramirez Hemoglobin (Bld) [Mass/Vol] 13.5 g/dL Normal 12.0-16.0 [facility] Comment on above: Performed By: #### P TT, PT #### [facility] [address] [place] [address] Dr. Judy Ramirez IG # 0.02 10e3/ul Normal 0.00-0.03 [facility] Comment on above: Performed By: #### P TT, PT #### [facility] [address] [place] [address] Dr. Judy Ramirez IG % 0.3 % Normal 0.0-0.5 [facility] Comment on above: Performed By: #### P TT, PT #### [facility] [address] [place] [address] Dr. Judy Ramirez LYMPH # 2.6 103/ul Normal 1.2-3.8 [facility] Comment on above: Performed By: #### P TT, PT #### [facility] [address] [place] [address] Dr. Judy Ramirez Lymphocytes/100 WBC (Bld) 33.9 % Normal 20.5-60.0 [facility] Comment on above: Performed By: #### P TT, PT #### [facility] [address] [place] [address] Dr. Judy Ramirez MANUAL DIFF REQ NO Normal [facility] Comment on above: Performed By: #### P TT, PT #### [facility] [address] [place] [address] Dr. Judy Ramirez MCH (RBC) [Entitic mass] 28.5 pg Normal 26.7-34.0 [facility] Comment on above: Performed By: #### P TT, PT #### [facility] [address] [place] [address] Dr. Judy Ramirez MCHC (RBC) [Mass/Vol] 33.2 g/dL Normal 29.9-35.2 [facility] Comment on above: Performed By: #### P TT, PT #### [facility] [address] [address] [address] Judy Ramirez MCV (RBC) [Entitic vol] 86.0 fL Normal 81.0-99.0 [facility] Comment on above: Performed By: #### P TT, PT #### [facility] [address] [place] [address] Dr. Judy Ramirez MONO # 0.4 103/ul Normal 0.3-0.8 [facility] Comment on above: Performed By: #### P TT, PT #### [facility] [address] [place] [address] Dr. Judy Ramirez Monocytes/100 WBC (Bld) 5.6 % Normal 1.7-12.0 [facility] Comment on above: Performed By: #### P TT, PT #### [facility] [address] [place] [address] Dr. Judy Ramirez NEUT # 4.4 103/ul Normal 1.4-6.5 [facility] Comment on above: Performed By: #### P TT, PT #### [facility] [address] [place] [address] Dr. Judy Ramirez Neutrophils/100 WBC (Bld) 58.1 % Normal 43.0-75.0 [facility] Comment on above: Performed By: #### P TT, PT #### [facility] [address] [place] [address] Dr. Judy Ramirez Platelet mean volume (Bld) [Entitic vol] 9.4 fL Critically low 9.5-13.5 [facility] Comment on above: Performed By: #### P TT, PT #### [facility] [address] [place] [address] Dr. Judy Ramirez PLT 285 103/ul Normal 150-450 [facility] Comment on above: Performed By: #### P TT, PT #### [facility] [address] [place] [address] Dr. Judy Ramirez RBC 4.73 106/ul Normal 4.20-5.40 [facility] Comment on above: Performed By: #### P TT, PT #### [facility] [address] [address] [address] Judy Ramirez WBC 7.6 103/ul Normal 4.0-11.0 [facility] Comment on above: Performed By: #### P TT, PT #### [facility] [address] [place] [address] Dr. Judy Ramirez PROF CHEM 8 (BAS METB)on Anion gap [Moles/Vol] 9.8 mmol/L Normal [facility] Comment on above: Performed By: #### P TT, PT #### [facility] [address] [place] [address] Dr. Judy Ramirez Calcium [Mass/Vol] 9.3 mg/dL Normal 8.5-10.1 [facility] Comment on above: Performed By: #### P TT, PT #### [facility] [address] [place] [address] Dr. Judy Ramirez Chloride [Moles/Vol] 105 mmol/L Normal 98-107 [facility] Comment on above: Performed By: #### P TT, PT #### [facility] [address] [place] [address] Dr. Judy Ramirez CO2 [Moles/Vol] 30.4 mmol/L Normal 21.0-32.0 [facility] Comment on above: Performed By: #### P TT, PT #### [facility] [address] [place] [address] Dr. Judy Ramirez Creatinine [Mass/Vol] 1.15 mg/dL Critically high 0.55-1.02 [facility] Comment on above: Performed By: #### P TT, PT #### [facility] [address] [place] [address] Dr. Judy Ramirez EGFR-AF [place] 60 mL/min/1.73m2 Normal >=60 [facility] Comment on above: Performed By: #### P TT, PT #### [facility] [address] [place] [address] Dr. Judy Ramirez EGFR-NON AF [place] 50 mL/min/1.73m2 Critically low >=60 [facility] Comment on above: Performed By: #### P TT, PT #### [facility] [address] [address] [address] Judy Ramirez Glucose [Mass/Vol] 95 mg/dL Normal 74-106 [facility] Comment on above: Performed By: #### P TT, PT #### [facility] [address] [address] [address] Judy Ramirez Potassium [Moles/Vol] 4.2 mmol/L Normal 3.5-5.1 [facility] Comment on above: Performed By: #### P TT, PT #### [facility] [address] [address] [address] Judy Ramirez Sodium [Moles/Vol] 141 mmol/L Normal 136-145 [facility] Comment on above: Performed By: #### P TT, PT #### [facility] [address] [place] [address] Dr. Judy Ramirez Urea nitrogen [Mass/Vol] 24.0 mg/dL Critically high 7.0-18.0 [facility] Comment on above: Performed By: #### P TT, PT #### [facility] [address] [address] [address] Judy Ramirez Urea nitrogen/Creatinine [Mass ratio] 20.9 mg/mg Normal [facility] Comment on above: Performed By: #### P TT, PT #### [facility] [address] [place] [address] Dr. Judy Ramirez PROTIMEon 08-07-2022 INR Coag (PPP) [Relative time] {INR} Normal [facility] Comment on above: Performed By: #### P TT, PT #### [facility] [address] [place] [address] Dr. Judy Ramirez INR GUIDELINES SEE BELOW Normal [facility] Comment on above: Result Comment: KATHLEEN RED INR: 2.0 - 3.0 CONDITIONS NOT LISTED BELOW 2.5 - 3.5 FOR PROSTHETIC HEART VALVE REPLACEMENT 2.5 - 3.5 RECURRENT THROMBOSIS Performed By: #### P TT, PT #### [facility] [address] [place] [address] Dr. Judy Ramirez PT Coag (PPP) [Time] 9.7 s Normal 9.0-11.6 [facility] Comment on above: Performed By: #### P TT, PT #### [facility] [address] [place] [address] Dr. Judy Ramirez PTTon 08-07-2022 aPTT Coag (Bld) [Time] 33.6 s Normal 22.3-36.2 [facility] Comment on above: Performed By: #### P TT, PT #### [facility] [address] [place] [address] Dr. Judy Ramirez CALCULI, URINARYon 3 2,8 Dihydroxyadenine Normal [facility] Comment on above: Performed By: #### P TT, PT #### [facility] [address] [place] [address] Dr. Juyd Ramirez Ammonium Acid Urate Normal [facility] Comment on above: Performed By: #### P TT, PT #### [facility] [address] [place] [address] Dr. Judy Ramirez Bilirubin Ql (U) [facility] Comment on above: Performed By: #### P TT, PT #### [facility] [address] [place] [address] Dr. Judy Ramirez Ca Oxalate Dihydrate 20 % Normal [facility] Comment on above: Performed By: #### P TT, PT #### [facility] [address] [place] [address] Dr. Judy Ramirez CaHPO4 (Brushite) [facility] Comment on above: Performed By: #### P TT, PT #### [facility] [address] [place] [address] Dr. Judy Ramirez Calcium Bilirubinate Normal [facility] Comment on above: Performed By: #### P TT, PT #### [facility] [address] [place] [address] Dr. Judy Ramirez Calcium Carbonate Normal [facility] Comment on above: Performed By: #### P TT, PT #### [facility] [address] [address] [address] Judy Ramirez Calcium Oxalate Monohydrate 80 % [facility] Comment on above: Performed By: #### P TT, PT #### [facility] [address] [address] [address] Judy Ramirez Calcium Palmitate Normal [facility] Comment on above: Performed By: #### P TT, PT #### [facility] [address] [place] [address] Dr. Jduy Ramirez Calcium Phosphate [facility] Comment on above: Performed By: #### P TT, PT #### [facility] [address] [address] [address] Judy Ramirez Calcium Stearate [facility] Comment on above: Performed By: #### P TT, PT #### [facility] [address] [place] [address] Dr. Judy Ramirez Carbonate Apatite [facility] Comment on above: Performed By: #### P TT, PT #### [facility] [address] [place] [address] Dr. Judy Ramirez Cellular Material [facility] Comment on above: Performed By: #### P TT, PT #### [facility] [address] [place] [address] Dr. Judy Ramirez Cholesterol [facility] Comment on above: Performed By: #### P TT, PT #### [facility] [address] [place] [address] Dr. Judy Ramirez Color (U) Brown Normal [facility] Comment on above: Performed By: #### P TT, PT #### [facility] [address] [place] [address] Dr. Judy Ramirez Comment [facility] Comment on above: Performed By: #### P TT, PT #### [facility] [address] [place] [address] Dr. Judy Ramirez Comment: Comment Normal [facility] Comment on above: Result Comment: Phys cliffan questions regarding Calculi Analysis contact [facility] at: [phone]. Performed By: #### P TT, PT #### [facility] [address] [place] [address] Dr. Judy Ramirez Composition Comment [facility] Comment on above: Result Comment: Perc entage (Represents the % composition) Performed By: #### P TT, PT #### [facility] [address] [place] [address] Dr. Judy Ramirez Cystine Normal [facility] Comment on above: Performed By: #### P TT, PT #### [facility] [address] [place] [address] Dr. Judy Ramirez Disclaimer: Comment Normal [facility] Comment on above: Result Comment: This test was developed and its performance characteristics determined by [employer]. It has not been cleared or approved by the Food and Drug Administration. Performed By: #### P TT, PT #### [facility] [address] [place] [address] Dr. Judy Ramirez Dried Blood [facility] Comment on above: Performed By: #### P TT, PT #### [facility] [address] [place] [address] Dr. Judy Ramirez Drug or Metabolite Normal [facility] Comment on above: Performed By: #### P TT, PT #### [facility] [address] [place] [address] Dr. Judy Ramirez Hydroxyapatite Normal [facility] Comment on above: Performed By: #### P TT, PT #### [facility] [address] [place] [address] Dr. Judy Ramirez Mg NH4 PO4 (Struvite) Normal [facility] Comment on above: Performed By: #### P TT, PT #### [facility] [address] [place] [address] Dr. Judy Ramirez MgHPO4 (Newberyite) [facility] Comment on above: Performed By: #### P TT, PT #### [facility] [address] [place] [address] Dr. Judy Ramirez Other component(s) Normal [facility] Comment on above: Performed By: #### P TT, PT #### [facility] [address] [address] [address] Judy Ramirez PDF . Normal [facility] Comment on above: Performed By: #### P TT, PT #### [facility] [address] [address] [address] Judy Ramirez Photo Comment Normal [facility] Comment on above: Result Comment: Phot ograph will follow under a separate cover Performed By: #### P TT, PT #### [facility] [address] [address] [address] Judy Ramirez Please note: Comment Normal [facility] Comment on above: Result Comment: Calc hannah report will follow via computer, mail or teletype installer delivery. Performed By: #### P TT, PT #### [facility] [address] [place] [address] Dr. Judy Ramirez Size 3x3 [facility] Comment on above: Result Comment: Mult iple pieces received. Dimensions of the largest piece reported. Performed By: #### P TT, PT #### [facility] [address] [address] [address] Judy Ramirez Sodium Acid Urate [facility] Comment on above: Performed By: #### P TT, PT #### [facility] [address] [address] [address] Judy Ramirez Source Comment [facility] Comment on above: Result Comment: Not provided Performed By: #### P TT, PT #### [facility] [address] [address] [address] Judy Ramirez Triamterene [facility] Comment on above: Performed By: #### P TT, PT #### [facility] [address] [address] [address] Judy Ramirez Uric Acid [facility] Comment on above: Performed By: #### P TT, PT #### [facility] [address] [address] [address] Judy Ramirez Uric Acid Dihydrate Normal [facility] Comment on above: Performed By: #### P TT, PT #### [facility] [address] [address] [address] Judy Ramirez Weight 47 mg Normal [facility] Comment on above: Performed By: #### P TT, PT #### [facility] [address] [address] [address] Judy Ramirez Xanthine Normal [facility] Comment on above: Performed By: #### P TT, PT #### [facility] [address] [address] [address] Judy Ramirez XR KUB 1 VIEWon [...] JERICA HOOPER Date: 2022-07-30 09:38 Normal [facility] CARDIAC MIKE ADMITon 023 CK [Catalytic activity/Vol] 84 U/L Normal 26-192 [facility] Comment on above: Performed By: #### P TT, PT #### [facility] [address] [place] [address] Dr. Judy Ramirez CK.MB [Mass/Vol] 0.68 ng/mL Normal <=3.60 [facility] Comment on above: Performed By: #### P TT, PT #### [facility] [address] [place] [address] Dr. Judy Ramirez HSTROP 4.3 pg/mL Normal 4.0-51.3 [facility] Comment on above: Result Comment: CUT- OFF POINTS HAVE BEEN ESTABLISHED BASED ON THE FOURTH UNIVERSAL DEFINITIONS OF MYOCARDIAL INFARCTION. THE UPPER REFERENCE LIMIT (URL) OF TROPONIN, DEFINED THE 99TH PERCENTILE OF cTnI DISTRIBUTION IN A REFERENCE POPULATION, HAS BEEN CONFIRMED THE DECISION THRESHOLD FOR AR DIAGNOSIS. Performed By: #### P TT, PT #### [facility] [address] [place] [address] Dr. Judy Ramirez YASEMIN 31 ng/mL Normal 9-82 [facility] Comment on above: Performed By: #### P TT, PT #### [facility] [address] [place] [address] Dr. Judy Ramirez CBC AUTO DIFFon 07-08-2022 BASO # 0.1 103/ul Normal 0.0-0.1 [facility] Comment on above: Performed By: #### P TT, PT #### [facility] [address] [place] [address] Dr. Judy Ramirez Basophils/100 WBC (Bld) 0.7 % Normal 0.2-2.0 [facility] Comment on above: Performed By: #### P TT, PT #### [facility] [address] [place] [address] Dr. Judy Ramirez EO # 0.2 103/ul Normal 0.0-0.7 [facility] Comment on above: Performed By: #### P TT, PT #### [facility] [address] [place] [address] Dr. Judy Ramirez Eosinophils/100 WBC (Bld) 2.1 % Normal 0.9-7.0 [facility] Comment on above: Performed By: #### P TT, PT #### [facility] [address] [place] [address] Dr. Judy Ramirez Erythrocyte distribution width (RBC) [Ratio] 12.8 % Normal 11.0-15.0 [facility] Comment on above: Performed By: #### P TT, PT #### [facility] [address] [place] [address] Dr. Judy Ramirez Hematocrit (Bld) [Volume fraction] 40.6 % Normal 36.0-48.0 [facility] Comment on above: Performed By: #### P TT, PT #### [facility] [address] [place] [address] Dr. Judy Ramirez Hemoglobin (Bld) [Mass/Vol] 13.6 g/dL Normal 12.0-16.0 [facility] Comment on above: Performed By: #### P TT, PT #### [facility] [address] [address] [address] Judy Ramirez IG # 0.04 10e3/ul Critically high 0.00-0.03 [facility] Comment on above: Performed By: #### P TT, PT #### [facility] [address] [place] [address] Dr. Judy Ramirez IG % 0.6 % Critically high 0.0-0.5 [facility] Comment on above: Performed By: #### P TT, PT #### [facility] [address] [place] [address] Dr. Judy Ramirez LYMPH # 2.6 103/ul Normal 1.2-3.8 [facility] Comment on above: Performed By: #### P TT, PT #### [facility] [address] [place] [address] Dr. Judy Ramirez Lymphocytes/100 WBC (Bld) 36.8 % Normal 20.5-60.0 [facility] Comment on above: Performed By: #### P TT, PT #### [facility] [address] [place] [address] Dr. Judy Ramirez MANUAL DIFF REQ NO Normal [facility] Comment on above: Performed By: #### P TT, PT #### [facility] [address] [place] [address] Dr. Judy Ramirez MCH (RBC) [Entitic mass] 28.8 pg Normal 26.7-34.0 [facility] Comment on above: Performed By: #### P TT, PT #### [facility] [address] [place] [address] Dr. uJdy Ramirez MCHC (RBC) [Mass/Vol] 33.5 g/dL Normal 29.9-35.2 [facility] Comment on above: Performed By: #### P TT, PT #### [facility] [address] [place] [address] Dr. Judy Ramirez MCV (RBC) [Entitic vol] 86.0 fL Normal 81.0-99.0 [facility] Comment on above: Performed By: #### P TT, PT #### [facility] [address] [place] [address] Dr. Judy Ramirez MONO # 0.4 103/ul Normal 0.3-0.8 [facility] Comment on above: Performed By: #### P TT, PT #### [facility] [address] [place] [address] Dr. Judy Ramirez Monocytes/100 WBC (Bld) 6.0 % Normal 1.7-12.0 [facility] Comment on above: Performed By: #### P TT, PT #### [facility] [address] [place] [address] Dr. Judy Ramirez NEUT # 3.8 103/ul Normal 1.4-6.5 [facility] Comment on above: Performed By: #### P TT, PT #### [facility] [address] [place] [address] Dr. Judy Ramirez Neutrophils/100 WBC (Bld) 53.8 % Normal 43.0-75.0 [facility] Comment on above: Performed By: #### P TT, PT #### [facility] [address] [place] [address] Dr. Judy Ramirez Platelet mean volume (Bld) [Entitic vol] 9.6 fL Normal 9.5-13.5 [facility] Comment on above: Performed By: #### P TT, PT #### [facility] [address] [place] [address] Dr. Judy Ramirez PLT 276 103/ul Normal 150-450 [facility] Comment on above: Performed By: #### P TT, PT #### [facility] [address] [place] [address] Dr. Judy Ramirez RBC 4.72 106/ul Normal 4.20-5.40 [facility] Comment on above: Performed By: #### P TT, PT #### [facility] [address] [place] [address] Dr. Judy Ramirez WBC 7.0 103/ul Normal 4.0-11.0 [facility] Comment on above: Performed By: #### P TT, PT #### [facility] [address] [address] [address] Judy Ramirez CRPon 07-08-2022 CRP [Mass/Vol] mg/L Normal <=1.0 [facility] Comment on above: Performed By: #### P TT, PT #### [facility] [address] [address] [address] Judy Ramirez D-DIMERon 07-08-2022 D-DIMER 0.39 mg/L FEU Normal <=0.59 [facility] Comment on above: Performed By: #### P TT, PT #### [facility] [address] [place] [address] Dr. Judy Ramirez D-DIMER COMMENTS SEE BELOW Normal [facility] Comment on above: Result Comment: Incr [...] Performed By: #### P TT, PT #### [facility] [address] [place] [address] Dr. Judy Ramirez LIVER PROFILEon 07-08-2022 Albumin [Mass/Vol] 3.7 g/dL Normal 3.4-5.0 [facility] Comment on above: Performed By: #### T SH, CRP, MG, LIVER, BMP, CMADM #### [facility] [address] [address] [address] Judy Ramirez Albumin/Globulin [Mass ratio] 0.9 {ratio} Normal [facility] Comment on above: Performed By: #### T SH, CRP, MG, LIVER, BMP, CMADM #### [facility] [address] [address] [address] Judy Ramirez ALP [Catalytic activity/Vol] 98 U/L Normal 46-116 [facility] Comment on above: Performed By: #### T SH, CRP, MG, LIVER, BMP, CMADM #### [facility] [address] [place] [address] Dr. Judy Ramirez ALT [Catalytic activity/Vol] 37 U/L Normal 14-59 [facility] Comment on above: Performed By: #### T SH, CRP, MG, LIVER, BMP, CMADM #### [facility] [address] [place] [address] Dr. Judy Ramirez AST [Catalytic activity/Vol] 19 U/L Normal 15-37 [facility] Comment on above: Performed By: #### T SH, CRP, MG, LIVER, BMP, CMADM #### [facility] [address] [place] [address] Dr. Judy Ramirez BILI, CONJUGATED 0.1 mg/dL Normal 0.0-0.2 [facility] Comment on above: Performed By: #### T SH, CRP, MG, LIVER, BMP, CMADM #### [facility] [address] [place] [address] Dr. Judy Ramirez Bilirubin [Mass/Vol] 0.4 mg/dL Normal 0.2-1.0 [facility] Comment on above: Performed By: #### T SH, CRP, MG, LIVER, BMP, CMADM #### [facility] [address] [place] [address] Dr. Judy Ramirez Globulin (S) [Mass/Vol] 4.0 g/dL Normal [facility] Comment on above: Performed By: #### T SH, CRP, MG, LIVER, BMP, CMADM #### [facility] [address] [place] [address] Dr. Judy Ramirez Protein [Mass/Vol] 7.7 g/dL Normal 6.4-8.2 [facility] Comment on above: Performed By: #### T SH, CRP, MG, LIVER, BMP, CMADM #### [facility] [address] [place] [address] Dr. Judy Ramirez MAGNESIUMon 07-08-2022 Magnesium [Mass/Vol] 2.1 mg/dL Normal 1.8-2.4 [facility] Comment on above: Performed By: #### T SH, CRP, MG, LIVER, BMP, CMADM #### [facility] [address] [place] [address] Dr. Judy Ramirez PROF CHEM 8 (BAS METB)on Anion gap [Moles/Vol] 11.0 mmol/L Normal [facility] Comment on above: Performed By: #### T SH, CRP, MG, LIVER, BMP, CMADM #### [facility] [address] [place] [address] Dr. Judy Ramirez Calcium [Mass/Vol] 9.4 mg/dL Normal 8.5-10.1 [facility] Comment on above: Performed By: #### T SH, CRP, MG, LIVER, BMP, CMADM #### [facility] [address] [place] [address] Dr. Judy Ramirez Chloride [Moles/Vol] 102 mmol/L Normal 98-107 [facility] Comment on above: Performed By: #### T SH, CRP, MG, LIVER, BMP, CMADM #### [facility] [address] [place] [address] Dr. Judy Ramirez CO2 [Moles/Vol] 29.4 mmol/L Normal 21.0-32.0 [facility] Comment on above: Performed By: #### T SH, CRP, MG, LIVER, BMP, CMADM #### [facility] [address] [place] [address] Dr. Judy Ramirez Creatinine [Mass/Vol] 1.04 mg/dL Critically high 0.55-1.02 [facility] Comment on above: Performed By: #### T SH, CRP, MG, LIVER, BMP, CMADM #### [facility] [address] [place] [address] Dr. Judy Ramirez EGFR-AF [place] >60 Normal >=60 [facility] Comment on above: Performed By: #### T SH, CRP, MG, LIVER, BMP, CMADM #### [facility] [address] [place] [address] Dr. Judy Ramirez EGFR-NON AF [place] 56 mL/min/1.73m2 Critically low >=60 [facility] Comment on above: Performed By: #### T SH, CRP, MG, LIVER, BMP, CMADM #### [facility] [address] [address] [address] Judy Ramirez Glucose [Mass/Vol] 98 mg/dL Normal 74-106 [facility] Comment on above: Performed By: #### T SH, CRP, MG, LIVER, BMP, CMADM #### [facility] [address] [address] [address] Judy Ramirez Potassium [Moles/Vol] 4.4 mmol/L Normal 3.5-5.1 [facility] Comment on above: Performed By: #### T SH, CRP, MG, LIVER, BMP, CMADM #### [facility] [address] [place] [address] Dr. Judy Ramirez Sodium [Moles/Vol] 138 mmol/L Normal 136-145 [facility] Comment on above: Performed By: #### T SH, CRP, MG, LIVER, BMP, CMADM #### [facility] [address] [address] [address] Judy Ramirez Urea nitrogen [Mass/Vol] 25.0 mg/dL Critically high 7.0-18.0 [facility] Comment on above: Performed By: #### T SH, CRP, MG, LIVER, BMP, CMADM #### [facility] [address] [address] [address] Judy Ramirez Urea nitrogen/Creatinine [Mass ratio] 24.0 mg/mg Normal [facility] Comment on above: Performed By: #### T SH, CRP, MG, LIVER, BMP, CMADM #### [facility] [address] [place] [address] Dr. Judy Ramirez SED RATE SANTA BARBARAERGRENon 2022 SED RATE 27 mm/hr Normal <=30 [facility] Comment on above: Performed By: #### S EDR #### [facility] [address] [place] [address] Dr. Judy Ramirez TSHon 07-08-2022 TSH 0.701 uIU/mL Normal 0.358-3.74 0 [facility] Comment on above: Performed By: #### T SH, CRP, MG, LIVER, BMP, CMADM #### [facility] [address] [address] [address] Judy Ramirez UA (CLEAN/CATCH) WOOL HANKER/MICRO I F IND.on 07-08-2022 Bilirubin Ql (U) Negative Normal NEGATIVE [facility] Comment on above: Performed By: #### U ACSIND, UMICRO #### [facility] [address] [place] [address] Dr. Judy Ramirez Clarity (U) CLEAR Normal CLEAR [facility] Comment on above: Performed By: #### U ACSIND, UMICRO #### [facility] [address] [place] [address] Dr. Judy Ramirez Color (U) LT. YELLOW Normal YELLOW [facility] Comment on above: Performed By: #### U ACSIND, UMICRO #### [facility] [address] [address] [address] Judy Ramirez Glucose Ql (U) Negative Normal NEGATIVE [facility] Comment on above: Performed By: #### U ACSIND, ICRO #### [facility] [address] [place] [address] Dr. Judy Ramirez Hemoglobin Ql (U) Negative Normal NEGATIVE [facility] Comment on above: Performed By: #### U ACSIND, UMICRO #### [facility] [address] [address] [address] Judy Ramirez Ketones Ql (U) Negative Normal NEGATIVE [facility] Comment on above: Performed By: #### U ACSIND, UMICRO #### [facility] [address] [place] [address] Dr. Judy Ramirez LEUKOCYTES Negative Normal NEGATIVE [facility] Comment on above: Performed By: #### U ACSIND, UMICRO #### [facility] [address] [place] [address] Dr. Judy Ramirez Nitrite Ql (U) Negative Normal NEGATIVE [facility] Comment on above: Performed By: #### U ACSIND, UMICRO #### [facility] [address] [address] [address] Judy Ramirez pH (U) 6.0 [pH] Normal 5-9 [facility] Comment on above: Performed By: #### U ACSIND, UMICRO #### [facility] [address] [address] [address] Judy Ramirez SPEC GRAVITY <=1.005 Abnormal 1.005-<=1. 025 [facility] Comment on above: Performed By: #### U ACSIND, UMICRO #### [facility] [address] [address] [address] Judy Ramirez UA PROTEIN Negative Normal NEGATIVE/ TRACE [facility] Comment on above: Performed By: #### U ACSIND, UMICRO #### [facility] [address] [address] [address] Judy Ramirez UR MICRO IND MICROSCOPIC ALREADY ORDERED Normal [facility] Comment on above: Performed By: #### U ACSSIDDHARTHA, UMICRO #### [facility] [address] [address] [address] Judy Ramirez Urobilinogen Qn (U) 0.2 {Evelyn'U}/dL Normal 0.2 - 1. 0 [facility] Comment on above: Performed By: #### U ACSIND, UMICRO #### [facility] [address] [address] [address] Judy Ramirez URINE MICROSCOPIC ONLYon BACTERIA NONE SEEN Normal NONE SEEN [facility] Comment on above: Performed By: #### U ACSIND, UMICRO #### [facility] [address] [address] [address] Judy Ramirez Bacteria identified Cx Nom (U) NOT INDICATED Normal [facility] Comment on above: Performed By: #### U ACSIND, UMICRO #### [facility] [address] [address] [address] Judy Ramirez CAST NONE SEEN Normal NONE SEEN [facility] Comment on above: Performed By: #### U ACSIND, UMICRO #### [facility] [address] [address] [address] Judy Ramirez Crystals LM Nom (Urine sed) NONE SEEN Normal NONE SEEN [facility] Comment on above: Performed By: #### U ACSIND, UMICRO #### [facility] [address] [address] [address] Judy Ramirez Epithelial cells LM Ql (Urine sed) FEW Abnormal NONE SEEN /RARE [facility] Comment on above: Performed By: #### U ACSIND, UMICRO #### [facility] [address] [address] [address] Judy Ramirez MUCOUS TRACE Abnormal NONE SEEN [facility] Comment on above: Performed By: #### U ACSIND, UMICRO #### [facility] [address] [address] [address] Judy Ramirez RBC NONE SEEN Abnormal 0-2 [facility] Comment on above: Performed By: #### U ACSIND, UMICRO #### [facility] [address] [address] [address] Judy Ramirez WBC NONE SEEN Normal NONE SEEN [facility] Comment on above: Performed By: #### U ACSIND, UMICRO #### [facility] [address] [address] [address] Judy Ramirez XR KUB 1 VIEWon [...] JERICA HOOPER Date: 2022-07-02 12:05 Normal [facility] CBC AUTO DIFFon 06-29-2022 BASO # 0.0 103/ul Normal 0.0-0.1 [facility] Comment on above: Performed By: #### P TT, PT #### [facility] [address] [place] [address] Dr. Judy Ramirez Basophils/100 WBC (Bld) 0.4 % Normal 0.2-2.0 [facility] Comment on above: Performed By: #### P TT, PT #### [facility] [address] [place] [address] Dr. Judy Ramirez EO # 0.1 103/ul Normal 0.0-0.7 [facility] Comment on above: Performed By: #### P TT, PT #### [facility] [address] [place] [address] Dr. Judy Ramirez Eosinophils/100 WBC (Bld) 1.5 % Normal 0.9-7.0 [facility] Comment on above: Performed By: #### P TT, PT #### [facility] [address] [place] [address] Dr. Judy Ramirez Erythrocyte distribution width (RBC) [Ratio] 13.1 % Normal 11.0-15.0 [facility] Comment on above: Performed By: #### P TT, PT #### [facility] [address] [place] [address] Dr. Judy Ramirez Hematocrit (Bld) [Volume fraction] 40.7 % Normal 36.0-48.0 [facility] Comment on above: Performed By: #### P TT, PT #### [facility] [address] [place] [address] Dr. Judy Ramirez Hemoglobin (Bld) [Mass/Vol] 13.8 g/dL Normal 12.0-16.0 [facility] Comment on above: Performed By: #### P TT, PT #### [facility] [address] [place] [address] Dr. Judy Ramirez IG # 0.03 10e3/ul Normal 0.00-0.03 [facility] Comment on above: Performed By: #### P TT, PT #### [facility] [address] [place] [address] Dr. Judy Ramirez IG % 0.4 % Normal 0.0-0.5 [facility] Comment on above: Performed By: #### P TT, PT #### [facility] [address] [place] [address] Dr. Judy Ramirez LYMPH # 1.9 103/ul Normal 1.2-3.8 [facility] Comment on above: Performed By: #### P TT, PT #### [facility] [address] [place] [address] Dr. Judy Ramirez Lymphocytes/100 WBC (Bld) 24.5 % Normal 20.5-60.0 [facility] Comment on above: Performed By: #### P TT, PT #### [facility] [address] [place] [address] Dr. Judy Ramirez MANUAL DIFF REQ NO Normal [facility] Comment on above: Performed By: #### P TT, PT #### [facility] [address] [place] [address] Dr. Judy Ramirez MCH (RBC) [Entitic mass] 28.4 pg Normal 26.7-34.0 [facility] Comment on above: Performed By: #### P TT, PT #### [facility] [address] [place] [address] Dr. Judy Ramirez MCHC (RBC) [Mass/Vol] 33.9 g/dL Normal 29.9-35.2 [facility] Comment on above: Performed By: #### P TT, PT #### [facility] [address] [place] [address] Dr. Judy Ramirez MCV (RBC) [Entitic vol] 83.7 fL Normal 81.0-99.0 [facility] Comment on above: Performed By: #### P TT, PT #### [facility] [address] [place] [address] Dr. Judy Ramirez MONO # 0.5 103/ul Normal 0.3-0.8 [facility] Comment on above: Performed By: #### P TT, PT #### [facility] [address] [place] [address] Dr. Judy Ramirez Monocytes/100 WBC (Bld) 6.5 % Normal 1.7-12.0 [facility] Comment on above: Performed By: #### P TT, PT #### [facility] [address] [place] [address] Dr. Judy Ramirez NEUT # 5.1 103/ul Normal 1.4-6.5 [facility] Comment on above: Performed By: #### P TT, PT #### [facility] [address] [place] [address] Dr. Judy Ramirez Neutrophils/100 WBC (Bld) 66.7 % Normal 43.0-75.0 [facility] Comment on above: Performed By: #### P TT, PT #### [facility] [address] [place] [address] Dr. Judy Ramirez Platelet mean volume (Bld) [Entitic vol] 9.5 fL Normal 9.5-13.5 [facility] Comment on above: Performed By: #### P TT, PT #### [facility] [address] [place] [address] Dr. Judy Ramirez PLT 238 103/ul Normal 150-450 [facility] Comment on above: Performed By: #### P TT, PT #### [facility] [address] [place] [address] Dr. Judy Ramirez RBC 4.86 106/ul Normal 4.20-5.40 [facility] Comment on above: Performed By: #### P TT, PT #### [facility] [address] [place] [address] Dr. uJdy Ramirez WBC 7.6 103/ul Normal 4.0-11.0 [facility] Comment on above: Performed By: #### P TT, PT #### [facility] [address] [place] [address] Dr. Judy Ramirez PROF CHEM 8 (BAS METB)on Anion gap [Moles/Vol] 11.5 mmol/L Normal [facility] Comment on above: Performed By: #### B MP #### [facility] [address] [place] [address] Dr. Judy Ramirez Calcium [Mass/Vol] 9.9 mg/dL Normal 8.5-10.1 [facility] Comment on above: Performed By: #### B MP #### [facility] [address] [address] [address] Judy Ramirez Chloride [Moles/Vol] 105 mmol/L Normal 98-107 [facility] Comment on above: Performed By: #### B MP #### [facility] [address] [address] [address] Judy Ramirez CO2 [Moles/Vol] 28.1 mmol/L Normal 21.0-32.0 [facility] Comment on above: Performed By: #### B MP #### [facility] [address] [place] [address] Dr. Judy Ramirez Creatinine [Mass/Vol] 1.11 mg/dL Critically high 0.55-1.02 [facility] Comment on above: Performed By: #### B MP #### [facility] [address] [address] [address] Judy Ramirez EGFR-AF [place] >60 Normal >=60 [facility] Comment on above: Performed By: #### B MP #### [facility] [address] [address] [address] Judy Ramirez EGFR-NON AF [place] 52 mL/min/1.73m2 Critically low >=60 [facility] Comment on above: Performed By: #### B MP #### [facility] [address] [address] [address] Judy Ramirez Glucose [Mass/Vol] 97 mg/dL Normal 74-106 [facility] Comment on above: Performed By: #### B MP #### [facility] [address] [address] [address] Judy Ramirez Potassium [Moles/Vol] 3.6 mmol/L Normal 3.5-5.1 [facility] Comment on above: Performed By: #### B MP #### [facility] [address] [address] [address] Judy Ramirez Sodium [Moles/Vol] 141 mmol/L Normal 136-145 [facility] Comment on above: Performed By: #### B MP #### [facility] [address] [place] [address] Dr. Judy Ramirez Urea nitrogen [Mass/Vol] 15.0 mg/dL Normal 7.0-18.0 [facility] Comment on above: Performed By: #### B MP #### [facility] [address] [place] [address] Dr. Judy Ramirez Urea nitrogen/Creatinine [Mass ratio] 13.5 mg/mg Normal [facility] Comment on above: Performed By: #### B MP #### [facility] [address] [place] [address] Dr. Judy Ramirez PROTIMEon 06-29-2022 INR Coag (PPP) [Relative time] {INR} Normal [facility] Comment on above: Performed By: #### S EDR #### [facility] [facility] [address] [place] [address] Dr. Judy Ramirez INR GUIDELINES SEE BELOW Normal [facility] Comment on above: Result Comment: KATHLEEN RED INR: 2.0 - 3.0 CONDITIONS NOT LISTED BELOW 2.5 - 3.5 FOR PROSTHETIC HEART VALVE REPLACEMENT 2.5 - 3.5 RECURRENT THROMBOSIS Performed By: #### S EDR #### [facility] [address] [place] [address] Dr. Judy Ramirez PT Coag (PPP) [Time] 9.8 s Normal 9.0-11.6 [facility] Comment on above: Performed By: #### S EDR #### [facility] [address] [place] [address] Dr. Judy Ramirez PTTon 06-29-2022 aPTT Coag (Bld) [Time] 35.3 s Normal 22.3-36.2 [facility] Comment on above: Performed By: #### S EDR #### [facility] [address] [place] [address] Dr. Judy Ramirez XR KUB 1 VIEWon [...] LUIS M SOLOMON Date: 2022-06-20 12:12 Normal [facility] MAMM SCREEN 3D LEE CADon 06-16-2022 MG MAMM SCREEN 3D LEE CAD Patient: CINTHIA BADILLO Exam Date: 06/16/2022 : 1970 Gender:F Ordering : [facility] #: [id number] Family : Order #: [id number] CLICK HERE TO VIEW EXAM RADIOLOGY REPORT [...] breast cancer at age 80. LOCATION: [facility] BREAST COMPOSITION: Scattered areas fibroglandular density. FINDINGS: [...] Solomon MD on 06/17/2022 at 08:[address] [facility] [address] ABD/PELV W CONon 06-04-19 CT [...] JERICA HOOPER Date: 2022-06-03 08:59 Normal [facility] AMYLASEon 05-23-2022 Amylase [Catalytic activity/Vol] 74 U/L Normal 25-115 [facility] Comment on above: Performed By: #### S EDR #### [facility] [address] [place] [address] Dr. Judy Ramirez CBC AUTO DIFFon 05-23-2022 BASO # 0.0 103/ul Normal 0.0-0.1 [facility] Comment on above: Performed By: #### S EDR #### [facility] [address] [place] [address] Dr. Judy Ramirez Basophils/100 WBC (Bld) 0.5 % Normal 0.2-2.0 [facility] Comment on above: Performed By: #### S EDR #### [facility] [address] [place] [address] Dr. Judy Ramirez EO # 0.1 103/ul Normal 0.0-0.7 [facility] Comment on above: Performed By: #### S EDR #### [facility] [address] [place] [address] Dr. Judy Ramirez Eosinophils/100 WBC (Bld) 2.6 % Normal 0.9-7.0 [facility] Comment on above: Performed By: #### S EDR #### [facility] [address] [place] [address] Dr. Judy Ramirez Erythrocyte distribution width (RBC) [Ratio] 12.4 % Normal 11.0-15.0 [facility] Comment on above: Performed By: #### S EDR #### [facility] [address] [place] [address] Dr. Judy Ramirez Hematocrit (Bld) [Volume fraction] 41.1 % Normal 36.0-48.0 [facility] Comment on above: Performed By: #### S EDR #### [facility] [address] [place] [address] Dr. Judy Ramirez Hemoglobin (Bld) [Mass/Vol] 13.8 g/dL Normal 12.0-16.0 [facility] Comment on above: Performed By: #### S EDR #### [facility] [address] [place] [address] Dr. Judy Ramirez IG # 0.01 10e3/ul Normal 0.00-0.03 [facility] Comment on above: Performed By: #### S EDR #### [facility] [address] [place] [address] Dr. Judy Ramirez IG % 0.2 % Normal 0.0-0.5 [facility] Comment on above: Performed By: #### S EDR #### [facility] [address] [place] [address] Dr. Judy Ramirez LYMPH # 2.1 103/ul Normal 1.2-3.8 [facility] Comment on above: Performed By: #### S EDR #### [facility] [address] [place] [address] Dr. Judy Ramirez Lymphocytes/100 WBC (Bld) 37.8 % Normal 20.5-60.0 [facility] Comment on above: Performed By: #### S EDR #### [facility] [address] [place] [address] Dr. Judy Ramirez MANUAL DIFF REQ NO Normal [facility] Comment on above: Performed By: #### S EDR #### [facility] [address] [place] [address] Dr. Judy Ramirez MCH (RBC) [Entitic mass] 28.4 pg Normal 26.7-34.0 [facility] Comment on above: Performed By: #### S EDR #### [facility] [address] [place] [address] Dr. Judy Ramirez MCHC (RBC) [Mass/Vol] 33.6 g/dL Normal 29.9-35.2 [facility] Comment on above: Performed By: #### S EDR #### [facility] [address] [place] [address] Dr. Judy Ramirez MCV (RBC) [Entitic vol] 84.6 fL Normal 81.0-99.0 [facility] Comment on above: Performed By: #### S EDR #### [facility] [address] [place] [address] Dr. Judy Ramirez MONO # 0.3 103/ul Normal 0.3-0.8 [facility] Comment on above: Performed By: #### S EDR #### [facility] [address] [place] [address] Dr. Judy Ramirez Monocytes/100 WBC (Bld) 5.5 % Normal 1.7-12.0 [facility] Comment on above: Performed By: #### S EDR #### [facility] [address] [place] [address] Dr. Judy Ramirez NEUT # 2.9 103/ul Normal 1.4-6.5 [facility] Comment on above: Performed By: #### S EDR #### [facility] [address] [place] [address] Dr. Judy Ramirez Neutrophils/100 WBC (Bld) 53.4 % Normal 43.0-75.0 [facility] Comment on above: Performed By: #### S EDR #### [facility] [address] [address] [address] Judy Ramirez Platelet mean volume (Bld) [Entitic vol] 9.4 fL Critically low 9.5-13.5 [facility] Comment on above: Performed By: #### S EDR #### [facility] [address] [address] [address] Judy Ramirez PLT 274 103/ul Normal 150-450 [facility] Comment on above: Performed By: #### S EDR #### [facility] [address] [address] [address] Judy Ramirez RBC 4.86 106/ul Normal 4.20-5.40 [facility] Comment on above: Performed By: #### S EDR #### [facility] [address] [place] [address] Dr. Judy Ramirez WBC 5.5 103/ul Normal 4.0-11.0 [facility] Comment on above: Performed By: #### S EDR #### [facility] [address] [place] [address] Dr. Judy Ramirez LIPASEon 05-23-2022 Lipase [Catalytic activity/Vol] 97.0 U/L Normal 73.0-393.0 [facility] Comment on above: Performed By: #### U ACSIND, UMICRO #### [facility] [address] [address] [address] Judy Ramirez LIPID PROFILEon 05-23-2022 CHOL-HDL RATIO NORM SEE BELOW Normal [facility] Comment on above: Result Comment: 3.3 - 4.4 LOW RISK 4.4 - 7.1 AVERAGE RISK 7.1 - 11.0 MODERATE RISK >11.0 HIGH RISK Performed By: #### S EDR #### [facility] [address] [place] [address] Dr. Judy Ramirez Cholesterol [Mass/Vol] 203 mg/dL Critically high <=200 [facility] Comment on above: Performed By: #### S EDR #### [facility] [address] [place] [address] Dr. Judy Ramirez Cholesterol in HDL [Mass/Vol] 48 mg/dL Normal 40-60 [facility] Comment on above: Performed By: #### S EDR #### [facility] [address] [address] [address] Judy Ramirez Cholesterol in LDL [Mass/Vol] 130.0 mg/dL Normal [facility] Comment on above: Performed By: #### S EDR #### [facility] [address] [address] [address] Judy Ramirez Cholesterol.total/Chol esterol in HDL [Mass ratio] 4.2 {ratio} Normal [facility] Comment on above: Performed By: #### S EDR #### [facility] [address] [address] [address] Judy Ramirez HDL NORMAL > or = 60 mg/dl - LO W CARDIOVASCULAR RISK <40 mg/dl - HIGH CARDIOVASCULAR RISK Normal [facility] Comment on above: Performed By: #### S EDR #### [facility] [address] [address] [address] Judy Ramirez LDL CALC NORMAL SEE BELOW Normal [facility] Comment on above: Result Comment: <100 mg/dl OPTIMAL 100 - 129 mg/dl NEAR OR ABOVE OPTIMAL 130 - 159 mg/dl BORDERLINE HIGH 160 - 189 mg/dl HIGH >190 mg/dl VERY HIGH Performed By: #### S EDR #### [facility] [address] [address] [address] Judy Ramirez Triglyceride [Mass/Vol] 125 mg/dL Normal <=150 [facility] Comment on above: Performed By: #### S EDR #### [facility] [address] [address] [address] Judy Ramirez VLDL CALC 25.0 mg/dL Normal [facility] Comment on above: Performed By: #### S EDR #### [facility] [address] [place] [address] Dr. Judy Ramirez PROF 14(COMP METB)on 023 Albumin [Mass/Vol] 3.5 g/dL Normal 3.4-5.0 [facility] Comment on above: Performed By: #### U ACSIND, UMICRO #### [facility] [address] [address] [address] Judy Ramirez Albumin/Globulin [Mass ratio] 0.9 {ratio} Normal [facility] Comment on above: Performed By: #### U ACSIND, UMICRO #### [facility] [address] [address] [address] Judy Ramirez ALP [Catalytic activity/Vol] 86 U/L Normal 46-116 [facility] Comment on above: Performed By: #### U ACSIND, UMICRO #### [facility] [address] [address] [address] Judy Ramirez ALT [Catalytic activity/Vol] 32 U/L Normal 14-59 [facility] Comment on above: Performed By: #### U ACSIND, UMICRO #### [facility] [address] [address] [address] Judy Ramirez Anion gap [Moles/Vol] 9.6 mmol/L Normal [facility] Comment on above: Performed By: #### U ACSIND, UMICRO #### [facility] [address] [address] [address] Judy Ramirez AST [Catalytic activity/Vol] 19 U/L Normal 15-37 [facility] Comment on above: Performed By: #### U ACSIND, UMICRO #### [facility] [address] [address] [address] Judy Ramirez Bilirubin [Mass/Vol] 0.5 mg/dL Normal 0.2-1.0 [facility] Comment on above: Performed By: #### U ACSIND, UMICRO #### [facility] [address] [address] [address] Judy Ramirez Calcium [Mass/Vol] 9.3 mg/dL Normal 8.5-10.1 [facility] Comment on above: Performed By: #### U ACSIND, UMICRO #### [facility] [address] [address] [address] Judy Ramirez Chloride [Moles/Vol] 106 mmol/L Normal 98-107 [facility] Comment on above: Performed By: #### U ACSPINKY CARLICRO #### [facility] [address] [address] [address] Judy Ramirez CO2 [Moles/Vol] 30.7 mmol/L Normal 21.0-32.0 [facility] Comment on above: Performed By: #### U ACSPINKY CARLICRO #### [facility] [address] [address] [address] Judy Ramirez Creatinine [Mass/Vol] 0.92 mg/dL Normal 0.55-1.02 [facility] Comment on above: Performed By: #### U ACSPINKY CARLICRO #### [facility] [address] [place] [address] Dr. Judy Ramirez EGFR-AF [place]IZ[place] >60 Normal >=60 [facility] Comment on above: Performed By: #### U ACSPINKY CARLICRO #### [facility] [address] [place] [address] Dr. Judy Ramirez EGFR-NON AF [place] >60 Normal >=60 [facility] Comment on above: Performed By: #### U ADITYA MARTINEZRO #### [facility] [address] [place] [address] Dr. Judy Ramirez Globulin (S) [Mass/Vol] 3.9 g/dL Normal [facility] Comment on above: Performed By: #### U ACSPINKY CARLICRO #### [facility] [address] [place] [address] Dr. Judy Ramirez Glucose [Mass/Vol] 95 mg/dL Normal 74-106 [facility] Comment on above: Performed By: #### U ACSPINKY CARLICRO #### [facility] [address] [place] [address] Dr. Judy Ramirez Potassium [Moles/Vol] 4.3 mmol/L Normal 3.5-5.1 [facility] Comment on above: Performed By: #### U ACSSIDDHARTHA UMICRO #### [facility] [address] [place] [address] Dr. Judy Ramirez Protein [Mass/Vol] 7.4 g/dL Normal 6.4-8.2 [facility] Comment on above: Performed By: #### U ACSADITYA CARLRO #### [facility] [address] [place] [address] Dr. Judy Ramirez Sodium [Moles/Vol] 142 mmol/L Normal 136-145 [facility] Comment on above: Performed By: #### U ACSADITYA CARLRO #### [facility] [address] [place] [address] Dr. Judy Ramirez Urea nitrogen [Mass/Vol] 17.0 mg/dL Normal 7.0-18.0 [facility] Comment on above: Performed By: #### U ACSADITYA CARLRO #### [facility] [address] [place] [address] Dr. Judy Ramirez Urea nitrogen/Creatinine [Mass ratio] 18.5 mg/mg Normal [facility] Comment on above: Performed By: #### U ADITYA MARTINEZRO #### [facility] [address] [place] [address] Dr. Judy Ramirez UA RANDOM W/MICROSCOPICon BACTERIA NONE SEEN Normal NONE SEEN [facility] Comment on above: Performed By: #### P TT, PT #### [facility] [address] [place] [address] Dr. Judy Ramirze Bilirubin Ql (U) Negative Normal NEGATIVE [facility] Comment on above: Performed By: #### P TT, PT #### [facility] [address] [place] [address] Dr. Judy Ramirez CAST NONE SEEN Normal NONE SEEN [facility] Comment on above: Performed By: #### P TT, PT #### [facility] [address] [place] [address] Dr. Judy Ramirez Clarity (U) CLEAR Normal CLEAR [facility] Comment on above: Performed By: #### P TT, PT #### [facility] [address] [place] [address] Dr. Judy Ramirez Color (U) LT. YELLOW Normal YELLOW [facility] Comment on above: Performed By: #### P TT, PT #### [facility] [address] [address] [address] Judy Ramirez Crystals LM Nom (Urine sed) NONE SEEN Normal NONE SEEN [facility] Comment on above: Performed By: #### P TT, PT #### [facility] [address] [place] [address] Dr. Judy Ramirez Epithelial cells LM Ql (Urine sed) FEW Abnormal NONE SEEN /RARE [facility] Comment on above: Performed By: #### P TT, PT #### [facility] [address] [place] [address] Dr. Judy Ramirez Glucose Ql (U) Negative Normal NEGATIVE [facility] Comment on above: Performed By: #### P TT, PT #### [facility] [address] [place] [address] Dr. Judy Ramirez Hemoglobin Ql (U) TRACE-INTACT Abnormal NEGATIVE [facility] Comment on above: Performed By: #### P TT, PT #### [facility] [address] [place] [address] Dr. Judy Ramirez Ketones Ql (U) Negative Normal NEGATIVE [facility] Comment on above: Performed By: #### P TT, PT #### [facility] [address] [place] [address] Dr. Judy Ramirez LEUKOCYTES Negative Normal NEGATIVE [facility] Comment on above: Performed By: #### P TT, PT #### [facility] [address] [place] [address] Dr. Judy Ramirez MUCOUS NONE SEEN Normal NONE SEEN [facility] Comment on above: Performed By: #### P TT, PT #### [facility] [address] [place] [address] Dr. Judy Ramirez Nitrite Ql (U) Negative Normal NEGATIVE [facility] Comment on above: Performed By: #### P TT, PT #### [facility] [address] [place] [address] Dr. Judy Ramirez pH (U) 7.0 [pH] Normal 5-9 [facility] Comment on above: Performed By: #### P TT, PT #### [facility] [address] [place] [address] Dr. Judy Ramirez RBC NONE SEEN Abnormal 0-2 [facility] Comment on above: Performed By: #### P TT, PT #### [facility] [address] [place] [address] Dr. Judy Ramirez SPEC GRAVITY 1.010 Normal 1.005-<=1. 025 [facility] Comment on above: Performed By: #### P TT, PT #### [facility] [address] [place] [address] Dr. Judy Ramirez UA PROTEIN Negative Normal NEGATIVE/ TRACE [facility] Comment on above: Performed By: #### P TT, PT #### [facility] [address] [place] [address] Dr. Judy Ramirez Urobilinogen Qn (U) 0.2 {Evelyn'U}/dL Normal 0.2 - 1. 0 [facility] Comment on above: Performed By: #### P TT, PT #### [facility] [address] [place] [address] Dr. Judy Ramirez WBC NONE SEEN Normal NONE SEEN [facility] Comment on above: Performed By: #### P TT, PT #### [facility] [address] [place] [address] Dr. Judy Ramirez CULTURE THROATon 12-24-2021 CULTURE [...] F Tetracycline >=16 R F Normal [facility] Comment on above: Performed By: #### S EDR #### [facility] [address] [place] [address] Dr. Judy Ramirez Covid-19 PCR ([facility])on 12-13 SARS-CoV-2 (COVID-19) RNA CAROLA+probe Ql (Unsp spec) Not detected Normal NOT DETECTED [facility] Comment on above: Result Comment: This test is not yet approved or cleared by the [place] FDA. When there are no FDA-approved or cleared tests available, and other criteria are met, FDA can make tests available under an emergency access mechanism called an Emergency Use Authorization (EUA). The EUA for this test is supported by the [place] of Health and Human Service's (HHS's) declaration [...] Performed By: #### U ACSIND, UMICRO #### [facility] [address] [place] [address] Dr. Judy Ramirez COVID-19 Positive/NegativeOr dered By: Luis M Juarez on 08-13-2021 SARS-CoV-2 (COVID-19) N gene CAROLA+probe Ql (Resp) Negative Negative [facility] Comment on above: Testing for SARS-CoV -2 by RT-PCR This test was developed and its performance characteristics determined by [employer] and validated at the [facility]. This test has not been FDA [...] Time Vital Sign Value Performing Clinician Facility 10-17-2024 10:41-0400 Body height 165.1 cm Kamilla Aichholz Work Phone: [facility] 10-17-2024 10:41-0400 Body mass index (BMI) [Ratio] 34.3 kg/m2 Kamilla Aichholz Work Phone: [facility] 10-17-2024 10:41-0400 Body weight 93.61 kg Kamilla Aichholz Work Phone: [facility] 10-17-2024 10:41-0400 Diastolic blood pressure 76 mm[Hg] Kamilla Aichholz Work Phone: [facility] 10-17-2024 10:41-0400 Heart rate 80 /min Kamilla Aichholz Work Phone: [facility] 10-17-2024 10:41-0400 SaO2% (BldA) [Mass fraction] 98 % Kamilla Aichholz Work Phone: [facility] 10-17-2024 10:41-0400 Systolic blood pressure 122 mm[Hg] Kamilla Aichholz Work Phone: [facility] 10-14-2024 18:30-0400 Diastolic blood pressure 81 mm[Hg] Kamilla Aichholz Work Phone: [facility] 10-14-2024 18:30-0400 Heart rate 78 /min Kamilla Aichholz Work Phone: [facility] 10-14-2024 18:30-0400 Respiratory rate 18 /min Kamilla Aichholz Work Phone: [facility] 10-14-2024 18:30-0400 SaO2% (BldA) [Mass fraction] 97 % Kamilla Aichholz Work Phone: [facility] 10-14-2024 18:30-0400 Systolic blood pressure 136 mm[Hg] Kamilla Aichholz Work Phone: [facility] 10-14-2024 12:58-0400 Body height 165.1 cm Kamilla Aichholz Work Phone: [facility] 10-14-2024 12:58-0400 Body temperature 98.7 [degF] Kamilla Aichholz Work Phone: [facility] 10-14-2024 12:58-0400 Body weight 93 kg Kamilla Aichholz Work Phone: [facility] 10-12-2024 11:20-0400 Body height 165.1 cm Kamilla Aichholz Work Phone: [facility] 10-12-2024 11:20-0400 Body temperature 98.2 [degF] Kamilla Aichholz Work Phone: [facility] 10-12-2024 11:20-0400 Body weight 94 kg Kamilla Aichholz Work Phone: [facility] 10-12-2024 11:20-0400 Diastolic blood pressure 98 mm[Hg] Kamilla Aichholz Work Phone: [facility] 10-12-2024 11:20-0400 Heart rate 77 /min Kamilla Aichholz Work Phone: [facility] 10-12-2024 11:20-0400 Respiratory rate 22 /min Kamilla Aichholz Work Phone: [facility] 10-12-2024 11:20-0400 SaO2% (BldA) [Mass fraction] 99 % Kamilla Aichholz Work Phone: [facility] 10-12-2024 11:20-0400 Systolic blood pressure 169 mm[Hg] Kamilla Aichholz Work Phone: [facility] 09-26-2024 16:07-0400 Body mass index (BMI) [Ratio] 34.22 kg/m2 Kamilla Aichholz ENTEROSTOMAL NURSE Work Phone: [facility] 09-26-2024 16:07-0400 Body temperature 98.29 [degF] Kamilla Aichholz ENTEROSTOMAL NURSE Work Phone: [facility] 09-26-2024 16:07-0400 Body weight 96.16 kg Kamilla Aichholz ENTEROSTOMAL NURSE Work Phone: [facility] 09-26-2024 16:07-0400 Diastolic blood pressure 78 mm[Hg] Kamilla Aichholz ENTEROSTOMAL NURSE Work Phone: [facility] 09-26-2024 16:07-0400 Heart rate 74 /min Kamilla Aichholz ENTEROSTOMAL NURSE Work Phone: [facility] 09-26-2024 16:07-0400 Respiratory rate 18 /min Kamilla Aichholz ENTEROSTOMAL NURSE Work Phone: [facility] 09-26-2024 16:07-0400 SaO2% (BldA) [Mass fraction] 98 % Kamilla Aichholz ENTEROSTOMAL NURSE Work Phone: [facility] 09-26-2024 16:07-0400 Systolic blood pressure 108 mm[Hg] Kamilla Aichholz ENTEROSTOMAL NURSE Work Phone: [facility] 08-30-2024 17:00-0400 Body mass index (BMI) [Ratio] 34.51 kg/m2 Kamilla Aichholz ENTEROSTOMAL NURSE Work Phone: [facility] 08-30-2024 17:00-0400 Body temperature 98.49 [degF] Kamilla Aichholz ENTEROSTOMAL NURSE Work Phone: [facility] 08-30-2024 17:00-0400 Body weight 96.98 kg Kamilla Aichholz ENTEROSTOMAL NURSE Work Phone: [facility] 08-30-2024 17:00-0400 Diastolic blood pressure 82 mm[Hg] Kamilla Aichholz ENTEROSTOMAL NURSE Work Phone: [facility] 08-30-2024 17:00-0400 Heart rate 76 /min Kamilla Aichholz ENTEROSTOMAL NURSE Work Phone: [facility] 08-30-2024 17:00-0400 Respiratory rate 18 /min Kamilla Aichholz ENTEROSTOMAL NURSE Work Phone: [facility] 08-30-2024 17:00-0400 SaO2% (BldA) [Mass fraction] 96 % Kamilla Aichholz ENTEROSTOMAL NURSE Work Phone: [facility] 08-30-2024 17:00-0400 Systolic blood pressure 112 mm[Hg] Kamilla Aichholz ENTEROSTOMAL NURSE Work Phone: [facility] 03-29-2024 17:54-0500 Body height 167.6 cm Kamilla Bisihholz ENTEROSTOMAL NURSE Work Phone: [facility] 03-29-2024 17:54-0500 Body mass index (BMI) [Ratio] 35.25 kg/m2 Kamilla Aichholz ENTEROSTOMAL NURSE Work Phone: [facility] 03-29-2024 17:54-0500 Body temperature 98.29 [degF] Kamilla Bisihholz ENTEROSTOMAL NURSE Work Phone: [facility] 03-29-2024 17:54-0500 Body weight 99.07 kg Kamilla Bisihholz ENTEROSTOMAL NURSE Work Phone: [facility] 03-29-2024 17:54-0500 Diastolic blood pressure 86 mm[Hg] Kamilla Aichholz ENTEROSTOMAL NURSE Work Phone: [facility] 03-29-2024 17:54-0500 Heart rate 80 /min Kamilla Aichholz ENTEROSTOMAL NURSE Work Phone: [facility] 03-29-2024 17:54-0500 Respiratory rate 18 /min Kamilla Aichholz ENTEROSTOMAL NURSE Work Phone: [facility] 03-29-2024 17:54-0500 SaO2% (BldA) [Mass fraction] 99 % Kamilla Abdi ENTEROSTOMAL NURSE Work Phone: [facility] 03-29-2024 17:54-0500 Systolic blood pressure 112 mm[Hg] Kamilla Abdi ENTEROSTOMAL NURSE Work Phone: [facility] 01-18-2024 15:27-0500 Blood Pressure Location Sena Orzech [facility] 01-18-2024 15:27-0500 Diastolic blood pressure 80 mm[Hg] Sena Orzech [facility] 01-18-2024 15:27-0500 Heart rate 79 /min Sena Orzech [facility] 01-18-2024 15:27-0500 Systolic blood pressure 125 mm[Hg] Sena Orzech [facility] 12-27-2023 18:09-0400 Body height 167.6 cm Kamilla Abdi ENTEROSTOMAL NURSE Work Phone: [facility] 12-27-2023 18:09-0400 Body mass index (BMI) [Ratio] 35.28 kg/m2 Kamilla Abdi ENTEROSTOMAL NURSE Work Phone: [facility] 12-27-2023 18:09-0400 Body temperature 98.8 [degF] Kamilla Patton ENTEROSTOMAL NURSE Work Phone: [facility] 12-27-2023 18:09-0400 Body weight 99.16 kg Kamilla Patton ENTEROSTOMAL NURSE Work Phone: [facility] 12-27-2023 18:09-0400 Diastolic blood pressure 82 mm[Hg] Kamilla Patton ENTEROSTOMAL NURSE Work Phone: [facility] 12-27-2023 18:09-0400 Heart rate 87 /min Kamilla Patton ENTEROSTOMAL NURSE Work Phone: [facility] 12-27-2023 18:09-0400 Respiratory rate 18 /min Kamilla Patton ENTEROSTOMAL NURSE Work Phone: [facility] 12-27-2023 18:09-0400 SaO2% (BldA) [Mass fraction] 97 % Kamilla Patton ENTEROSTOMAL NURSE Work Phone: [facility] 12-27-2023 18:09-0400 Systolic blood pressure 124 mm[Hg] Kamilla Patton ENTEROSTOMAL NURSE Work Phone: [facility] 11-10-2023 15:53-0400 Body height 167.6 cm Mohsen Jenkins ENTEROSTOMAL NURSE Work Phone: [facility] 11-10-2023 15:53-0400 Body mass index (BMI) [Ratio] 34.86 kg/m2 Mohsenleonora Robisongel ENTEROSTOMAL NURSE Work Phone: [facility] 11-10-2023 15:53-0400 Body weight 97.98 kg Mohsen Enriquetagel ENTEROSTOMAL NURSE Work Phone: [facility] 11-10-2023 15:53-0400 Diastolic blood pressure 78 mm[Hg] Mohsen Raisanagel ENTEROSTOMAL NURSE Work Phone: [facility] 11-10-2023 15:53-0400 Systolic blood pressure 118 mm[Hg] Mohsen Raisanagel ENTEROSTOMAL NURSE Work Phone: [facility] 07-07-2023 13:13-0400 Body height 165.1 cm [facility] 07-07-2023 13:13-0400 Body mass index (BMI) [Ratio] 34.1 kg/m2 [facility] 07-07-2023 13:13-0400 Body weight 92.98 kg [facility] 04-20-2023 15:47-0500 Body height 167.6 cm Zonia Chambers DPM Work Phone: [facility] 04-20-2023 15:47-0500 Body mass index (BMI) [Ratio] 34.22 kg/m2 Zonia Chambers DPM Work Phone: [facility] 04-20-2023 15:47-0500 Body weight 96.16 kg Zonia Chambers DPM Work Phone: [facility] 12-28-2022 14:59-0400 Blood Pressure Location Anand LOPEZ [facility] 12-28-2022 14:59-0400 Diastolic blood pressure 86 mm[Hg] Anand LOPEZ [facility] 12-28-2022 14:59-0400 Heart rate 80 /min Anand LOPEZ [facility] 12-28-2022 14:59-0400 Respiratory rate 16 /min Anand LOPEZ [facility] 12-28-2022 14:59-0400 Systolic blood pressure 121 mm[Hg] Anand LOPEZ [facility] 09-30-2022 09:18-0400 Diastolic blood pressure 62 mm[Hg] [facility] 09-30-2022 09:18-0400 Heart rate 69 /min [facility] 09-30-2022 09:18-0400 Respiratory rate 16 /min [facility] 09-30-2022 09:18-0400 SaO2% (BldA) [Mass fraction] 98 % [facility] 09-30-2022 09:18-0400 Systolic blood pressure 96 mm[Hg] [facility] 09-30-2022 07:14-0400 Body height 165.1 cm [facility] 09-30-2022 07:14-0400 Body temperature 97.6 [degF] [facility] 09-30-2022 07:14-0400 Body weight 88.45 kg [facility] 08-13-2022 15:00-0400 Body weight 107 mg [facility] 08-15-2021 09:15-0400 Diastolic blood pressure 64 mm[Hg] DO Luis M Hykes Work Phone: [facility] 08-15-2021 09:15-0400 Heart rate 80 /min DO Luis M Hykes Work Phone: [facility] 08-15-2021 09:15-0400 Respiratory rate 20 /min DO Luis M Hykes Work Phone: [facility] 08-15-2021 09:15-0400 SaO2% (BldA) [Mass fraction] 100 % DO Luis M Hykes Work Phone: [facility] 08-15-2021 09:15-0400 Systolic blood pressure 112 mm[Hg] DO Luis M Hykes Work Phone: [facility] 08-15-2021 07:15-0400 Body height 166.37 cm DO Luis M Hykes Work Phone: [facility] 08-15-2021 07:15-0400 Body mass index (BMI) [Ratio] 32.8 kg/m2 DO Luis M Hykes Work Phone: [facility] 08-15-2021 07:15-0400 Body temperature 98.1 [degF] DO Luis M Hykes Work Phone: [facility] 08-15-2021 07:15-0400 Body weight 90.71 kg DO Luis M Hykes Work Phone: [facility] Encounters Encounter Date Encounter Type Care Provider Facility Start: 11-20-2024 ambulatory Chidi medeiros PA-C Facility:[facility] Start: 10-17-2024 End: 10-17-2024 ambulatory Kamilla Patton Work Phone: [facility] Work Phone: Start: 10-17-2024 End: 10-17-2024 Patient encounter procedure Agnes Rodriguez INK JET OPERATOR [facility] Work Phone: Start: 10-14-2024 End: 10-14-2024 Emergency department patient visit Kamilla Abdi Work Phone: -Emergency Room Work Phone: Start: 10-12-2024 End: 10-12-2024 Emergency department patient visit Kamilla Stephanieholz Work Phone: -Emergency Room Work Phone: Start: 09-26-2024 End: 09-26-2024 ambulatory KAMILLA AICHHOLZ Not Available Start: 09-26-2024 End: 09-26-2024 Office outpatient visit 25 minutes Kamilla Abdi ENTEROSTOMAL NURSE Work Phone: [facility] Comment on above: Chest pain in adult (Primary Dx); Morbid (severe) obesity due to excess calories (CMS-HCC); Gastro-esophageal reflux disease without esophagitis Start: 09-26-2024 End: 09-26-2024 Bamboo flowsheet Kamilla Aichholz ENTEROSTOMAL NURSE Work Phone: [facility] Start: 09-26-2024 End: 09-26-2024 Bamboo flowsheet Kamilla Aichholz ENTEROSTOMAL NURSE Work Phone: [facility] Start: 08-30-2024 End: 08-30-2024 Office outpatient visit 25 minutes Kamilla Aichholz ENTEROSTOMAL NURSE Work Phone: [facility] Comment on above: Gastro-esophageal re flux disease without esophagitis (Primary Dx); Pulmonary hypertension, unspecified (HCC); Morbid (severe) obesity due to excess calories (CMS-HCC); Abnormal kidney function Start: 08-30-2024 End: 08-30-2024 ambulatory KAMILLA AICHHOLZ Not Available Start: 08-30-2024 End: 08-30-2024 Bamboo flowsheet Kamilla Aichholz ENTEROSTOMAL NURSE Work Phone: [facility] Start: 08-30-2024 End: 08-30-2024 Bamboo flowsheet Kamilla Patton ENTEROSTOMAL NURSE Work Phone: [facility] Start: 06-06-2024 End: 06-06-2024 ambulatory LINA CONNER Not Available Start: 04-19-2024 End: 04-19-2024 Orders Only Kamilla Patton ENTEROSTOMAL NURSE Work Phone: [facility] Comment on above: Hyperglycemia (Prima ry Dx) Abnormal kidney func tion (Primary Dx) Start: 04-15-2024 End: 04-15-2024 Clinisync Result Encounter Kamilla Patton ENTEROSTOMAL NURSE Work Phone: [facility] Unsolicited Start: 04-15-2024 End: 04-15-2024 Clinisync Result Encounter Kamilla Patton ENTEROSTOMAL NURSE Work Phone: [facility] Unsolicited Start: 03-29-2024 End: 03-29-2024 Periodic preventive med est patient 40-64yrs Kamilla Patton ENTEROSTOMAL NURSE Work Phone: [facility] Comment on above: Encounter for annual wellness visit (Primary Dx); Morbid (severe) obesity due to excess calories (CMS/HCC); Gastro-esophageal reflux disease without esophagitis; Body mass index (BMI) 35.0-35.9, adult; Pulmonary hypertension, unspecified (CMS/HCC); Gastroesophageal reflux disease without esophagitis Start: 03-29-2024 End: 03-29-2024 ambulatory KAMILLA PATTON Not Available Start: 03-29-2024 End: 03-29-2024 Bamboo flowsheet Kamilla Patton ENTEROSTOMAL NURSE Work Phone: [facility] Start: 03-29-2024 End: 03-29-2024 Bamboo flowsheet Kamilla Patton ENTEROSTOMAL NURSE Work Phone: [facility] Start: 03-29-2024 End: 03-29-2024 Patient encounter procedure Kamilla Patton ENTEROSTOMAL NURSE Work Phone: [facility] Start: 02-23-2024 End: 02-23-2024 Refill Kamilla Patton ENTEROSTOMAL NURSE Work Phone: [facility] Comment on above: Gastroesophageal ref lux disease without esophagitis Start: 01-18-2024 End: 01-18-2024 ambulatory Sena Carias Facility:[facility] Start: 01-18-2024 End: 01-18-2024 Patient encounter procedure Sena Carias [facility] Start: 12-27-2023 End: 12-27-2023 Office outpatient visit 15 minutes Kamilla Patton ENTEROSTOMAL NURSE Work Phone: [facility] Comment on above: Gastroesophageal ref lux disease without esophagitis (Primary Dx); Pulmonary hypertension, unspecified (CMS/HCC); Obesity (BMI 30-39.9) Start: 12-27-2023 End: 12-27-2023 ambulatory KAMILLA ABDI Not Available Start: 12-27-2023 End: 12-27-2023 Bamboo flowsheet Kamilla Abdi ENTEROSTOMAL NURSE Work Phone: [facility] Start: 12-27-2023 End: 12-27-2023 Bamboo flowsheet Kamilla Bisihowenz ENTEROSTOMAL NURSE Work Phone: [facility] Start: 11-10-2023 End: 11-10-2023 Office outpatient visit 25 minutes Mohsen Jenkins ENTEROSTOMAL NURSE Work Phone: [facility] Comment on above: Trigeminal neuralgia (CMS/HCC); Nonintractable headache, unspecified chronicity pattern, unspecified headache type Start: 11-10-2023 End: 11-10-2023 ambulatory MOHSEN JENKINS Not Available Start: 10-22-2023 End: 10-22-2023 ambulatory Mendez Lund MD Work Phone: Gastroenterology Comment on above: Gastroesophageal ref lux disease, unspecified whether esophagitis present (Primary Dx) Start: 10-22-2023 End: 10-22-2023 Telemedicine consultation with patient Mendez Lund MD Work Phone: Gastroenterology Start: 07-07-2023 End: 07-07-2023 ambulatory [facility] Work Phone: Start: 07-07-2023 End: 07-07-2023 Patient encounter procedure [facility] Gastro[facility]ology Work Phone: Start: 04-28-2023 Refill Kamilla Patton ENTEROSTOMAL NURSE Work Phone: [facility] Comment on above: Gastroesophageal ref lux disease without esophagitis Start: 04-20-2023 End: 04-20-2023 Office outpatient visit 15 minutes Zonia Chambers DPM Work Phone: [facility] Comment on above: Onychomycosis (Prima ry Dx); Nail dystrophy; Pain in toes of both feet Start: 04-06-2023 End: 04-15-2023 ambulatory [facility] Start: 01-19-2023 End: 01-19-2023 ambulatory MOHSEN JENKINS [facility] Start: 01-19-2023 End: 01-19-2023 Patient encounter procedure Mohsen Jenkins [facility] Start: 12-28-2022 End: 12-28-2022 Patient encounter procedure Anand LOPEZ [facility] Start: 09-30-2022 End: 09-30-2022 Admission to same day surgery center [facility] Work Phone: Start: 09-30-2022 End: 09-30-2022 ambulatory NON STAFF [facility] Work Phone: Start: 08-31-2022 End: 08-31-2022 ambulatory NON STAFF [facility] Work Phone: Start: 08-31-2022 End: 08-31-2022 Patient encounter procedure [facility] [place] Work Phone: Start: 08-13-2022 End: 08-13-2022 ambulatory NON STAFF [facility] Work Phone: Start: 08-13-2022 End: 08-13-2022 Departed Referred [facility] [place] Work Phone: Start: 08-11-2022 End: 08-15-2022 Pre-admission assessment Mohsen Jenkins [facility] Start: 08-10-2022 Encounter for preprocedural laboratory examination DR ANAND LOPEZ . [facility] Start: 08-07-2022 End: 08-08-[address] ANAND LOPEZ . Facility:[facility] Start: 08-07-2022 End: 08-08-2022 Encounter for preprocedural laboratory examination DR ANAND LOPEZ . Facility:[facility] Start: 07-29-2022 End: 07-30-[address] ANAND LOPEZ . Facility:[facility] Start: 07-27-2022 End: 07-27-2022 ambulatory NON STAFF [facility] Work Phone: Start: 07-27-2022 End: 07-27-2022 Patient encounter procedure [facility] [place] Work Phone: Start: 07-08-2022 End: 07-09-2022 ambulatory ZELALEM PATTON Facility:[facility] Start: 07-05-2022 Encounter for preprocedural cardiovascular examination DR ANAND LOPEZ . [facility] Start: 07-05-2022 Encounter for preprocedural laboratory examination DR ANAND LOPEZ . [facility] Start: 07-02-2022 End: 07-02-[address] ANAND LOPEZ . Facility:[facility] Start: 06-29-2022 End: 06-30-[address] ANAND LOPEZ . Facility:[facility] Start: 06-29-2022 End: 06-30-2022 Encounter for preprocedural cardiovascular examination DR ANAND LOPEZ . Facility:[facility] Start: 06-20-2022 End: 06-21-[address] ANAND LOPEZ . Facility:[facility] Start: 06-16-2022 End: 06-17-2022 ambulatory ZELALEM KAMILLA BISIMeghanaCHRISTIANE Facility:[facility] Start: 06-03-2022 End: 06-04-2022 ambulatory ZELALEM CHRISOWENFrancheska Facility:[facility] Start: 05-23-2022 End: 05-24-2022 ambulatory ZELALEM CHRISOWENFrancheska Facility:[facility] Start: 12-22-2021 End: 12-22-2021 ambulatory SHAIKH Meghana NEWTON Facility:[facility] Start: 08-15-2021 End: 08-15-2021 Admission to same day surgery center DO Luis M Juarez Work Phone: [facility] Start: 08-13-2021 End: 08-13-2021 Patient encounter procedure DO Luis M Juarez Work Phone: [facility]Pre[facility]Surgical [facility] Procedures Date Procedure Procedure Detail Performing Clinician Start: 10-14-2024 CT of soft tissues of neck with contrast Kamilla Abdi Work Phone: Start: 04-15-2024 ALL CBC WITH AUTO DIFF Kamilla Abdi ENTEROSTOMAL NURSE Work Phone: Start: 01-24-2024 Mammography Kamilla Patton ENTEROSTOMAL NURSE Work Phone: Start: 09-30-2022 Esophagogastroduodenoscopy Start: 08-31-2022 Radionuclide gastric emptying study Start: 08-13-2022 Rigid cystoscopy Anand LOPEZ Start: 07-27-2022 MRI of head Start: 07-02-2022 Extracorporeal shockwave lithotripsy of calculus of kidney Anand LOPEZ Start: 06-16-2022 Mammography Zonia Chambers DPM Work Phone: Start: 08-15-2021 Esophagogastroduodenoscopy DO Luis M nunes Work Phone: Start: 08-15-2021 Colonoscopy Zonia Reyes DPM Work Phone: Start: 01-02-2020 Microscopic observation [Identifier] in Cervix by Cyto stain Zonia Chambers DPM Work Phone: Start: 05-26-2019 Lipid 1996 panel - Serum or Plasma Mendez Lund MD Work Phone: Cholecystectomy Mohsen hutchinson Hysterectomy Mohsen wang Plan of Treatment Date Care Activity Detail Author Start: 08-16-2031 Screening for malign ant neoplasm of colon [facility] Start: 01-23-2025 Screening for malign ant neoplasm of breast Mammogram [facility] Start: 12-04-2024 End: 12-04-2024 Patient encounter procedure 12/04/2024 5:30 PM EDT Office Visit [facility] [address] [place] [address] Kamilla Patton, ENTEROSTOMAL NURSE [address] [place] [address] [facility] Start: 11-13-2024 Influenza vaccination N [facility] Start: 11-06-2024 End: 11-06-2024 Patient encounter procedure 11/06/2024 6:30 PM EDT Office Visit [facility] [address] [place] [address] Kamilla Patton, ENTEROSTOMAL NURSE [address] [place] [address] [facility] Start: 09-26-2024 End: 09-26-2025 ECG 12 lead ECG 12 lead ECG Routine Chest pain in adult Expected: 09/26/2024 (Approximate), Expires: 09/26/2025 [facility] Comment on above: Expected: 09/26/2024 (Approximate), Expires: 09/26/2025 Start: 09-26-2024 End: 09-26-2025 XR Chest 2 Views XR chest 2 views Imaging High Priority Chest pain in adult Expected: 09/26/2024, Expires: 09/26/2025 [facility] Work Phone: Comment on above: Expected: 09/26/2024 , Expires: 09/26/2025 Start: 08-30-2024 End: 08-30-2024 Patient encounter procedure [facility] Comment on above: Pulmonary hypertensi on, unspecified (HCC) (Primary Dx); Gastro-esophageal reflux disease without esophagitis; Morbid (severe) obesity due to excess calories ([facility]-HCC) Start: 08-30-2024 End: 08-30-2025 Basic metabolic 1998 panel - Serum or Plasma Basic metabolic panel Lab Routine Abnormal kidney function Expected: 08/30/2024 (Approximate), Expires: 08/30/2025 [facility] Work Phone: Comment on above: Expected: 08/30/2024 (Approximate), Expires: 08/30/2025 Start: 08-30-2024 End: 08-30-2025 Microalbumin/Creatinine panel in random Urine Microalbumin / creatinine, urine ratio Lab Routine Abnormal kidney function Expected: 08/30/2024 (Approximate), Expires: 08/30/2025 [facility] Comment on above: Expected: 08/30/2024 (Approximate), Expires: 08/30/2025 Start: 08-30-2024 End: 08-30-2025 Urinalysis complete panel - Urine Urinalysis with reflex microscopic (clean catch) Lab Routine Abnormal kidney function Expected: 08/30/2024 (Approximate), Expires: 08/30/2025 [facility] Comment on above: Expected: 08/30/2024 (Approximate), Expires: 08/30/2025 Start: 06-06-2024 End: 06-06-2024 Patient encounter procedure 06/06/2024 4:20 PM EDT Office Visit [facility] [address] [place] [address] Lina Conner PA [address] [place] [id number] [facility] Start: 05-25-2024 Lipid panel Lipid Screening [facility] Start: 05-24-2024 Influenza vaccination Influenza Vacc ine (#1) [facility] Comment on above: Postponed from 11/13 (Patient Refused) Start: 05-03-2024 End: 04-19-2025 Basic metabolic 1998 panel - Serum or Plasma Basic metabolic panel Lab Routine Abnormal kidney function Expected: 05/03/2024 (Approximate), Expires: 04/19/2025 [facility] Work Phone: Comment on above: Expected: 05/03/2024 (Approximate), Expires: 04/19/2025 Start: 05-03-2024 End: 04-19-2025 Hemoglobin A1c/Hemoglobin.total in Blood Hemoglobin A1c Lab Routine Hyperglycemia Expected: 05/03/2024 (Approximate), Expires: 04/19/2025 [facility] Work Phone: Comment on above: Expected: 05/03/2024 (Approximate), Expires: 04/19/2025 Start: 04-24-2024 End: 04-24-2024 Patient encounter procedure [facility] Start: 03-29-2024 End: 03-29-2024 Patient encounter procedure [facility] Comment [...] wellness visit Expected: 03/29/2024 (Approximate), Expires: 03/29/2025 [facility] Comment on above: Expected: 03/29/2024 (Approximate), Expires: 03/29/2025 Start: 03-29-2024 End: 03-29-2025 Comprehensive metabolic 2000 panel - Serum or Plasma Comprehensive metabolic panel Lab Routine Encounter for annual wellness visit Expected: 03/29/2024 (Approximate), Expires: 03/29/2025 [facility] Comment on above: Expected: 03/29/2024 (Approximate), Expires: 03/29/2025 Start: 03-29-2024 End: 03-29-2025 Lipid 1996 panel - Serum or Plasma Lipid panel Lab Routine Encounter for annual wellness visit Expected: 03/29/2024 (Approximate), Expires: 03/29/2025 [facility] Comment on above: Expected: 03/29/2024 (Approximate), Expires: 03/29/2025 Start: 03-29-2024 End: 03-29-2025 Thyrotropin [Units/volume] in Serum or Plasma TSH Lab Routine Encounter for annual wellness visit Expected: 03/29/2024 (Approximate), Expires: 03/29/2025 [facility] Work Phone: Comment on above: Expected: 03/29/2024 (Approximate), Expires: 03/29/2025 Start: 03-29-2024 End: 03-29-2025 Urinalysis complete panel - Urine Urinalysis with reflex microscopic (clean catch) Lab Routine Encounter for annual wellness visit Expected: 03/29/2024 (Approximate), Expires: 03/29/2025 [facility] Comment on above: Expected: 03/29/2024 (Approximate), Expires: 03/29/2025 Start: 01-13-2024 Influenza vaccination Influenza Vacc ine (#1) [facility] Comment on above: Postponed from 11/13 (Patient Does Not Have Time) Start: 12-27-2023 End: 12-27-2023 Patient encounter procedure [facility] Comment on above: Pulmonary hypertensi on, unspecified ([facility]/HCC) Start: 11-14-2023 Influenza vaccination Influenza Vacc ine (#1) [facility] Start: 06-17-2023 Screening for malign ant neoplasm of breast Mammogram [facility] Start: 05-17-2023 End: 05-17-2023 Patient encounter procedure 05/17/2023 7:00 PM EST Office Visit [facility] [address] [place] [address] Kamilla Patton NP [address] [place] [address] [facility] Start: 04-29-2023 End: 04-29-2023 Patient encounter procedure 04/29/2023 6:00 PM EST Office Visit [facility] [address] [place] [address] Kamilla Patton, ENTEROSTOMAL NURSE [address] [place] [id number] [facility] Start: 01-01-2023 Screening for malign ant neoplasm of cervix Pap Smear [facility] Start: 11-13-2022 Covid-19 Vaccine () Covid-19 Vaccine () [facility] Start: 09-30-2022 [facility] Start: 07-27-2022 MR Unspecified body region [facility] Start: 07-27-2022 MRI of head MR head/brain wo/w con [facility] Start: 05-25-2022 Diabetes Screening Diabetes Screenin g [facility] Start: 2021 Shingrix Vaccine (1 of 2) Shingrix Vaccine (1 of 2) [facility] Start: 05-01-2020 Screening for malign ant neoplasm of breast Mammogram Screening [facility] Start: 07-18-2019 Urine microalbumin profile DTaP,Tdap,Td Vaccine (2 - Td or Tdap) [facility] Start: 01-26-2016 Screening for malign ant neoplasm of colon [facility] Start: 2001 Screening for malign ant neoplasm of cervix HPV/Cotest [facility] Start: 01-26-1992 Screening for malign ant neoplasm of cervix Cervical Cancer Screening [facility] Start: 1990 Hepatitis B Vaccine (1 of 3 - 19+ 3-dose series) Hepatitis B Vaccine (1 of 3 - 19+ 3-dose series) [facility] Start: 1989 Anxiety Screening Anxiety Screening [facility] Start: 1989 Depression Screening Depression Scre ening [facility] Start: 1989 Hepatitis C screening Hepatitis C Sc reening [facility] Start: 1989 HIV screening HIV Screening [facility] Start: 1971 Screening for malign ant neoplasm of colon [facility] Bilirubin measurement [facility] Body weight [facility] Calcium carbonate/To mirna in [facility] Calcium hydrogen phosphate dihydrate/Total in [facility] Calcium oxalate monohydrate/Total in [facility] Calcium phosphate level [facility] Calculus analysis wi th calculus photography [Interpretation] in [facility] Calculus analysis, qualitative [facility] Calculus analysis, quantitative [facility] Calculus analysis, quantitative, infrared spectroscopy [facility] Cellular material [Mass/mass] of Stone by Estimated [facility] Cholesterol [Mass/volume] in Serum or Plasma [facility] Cystine measurement [facility] Determination of calculus chemical composition [facility] Evaluation procedure [place] Hydroxyapatite [Ener gy Difference] in 24 hour Urine [facility] Laboratory data interpretation [facility] Newberyite/Total in [facility] Patient Education [facility] Work Phone: Patient referral [facility] Work Phone: Specimen source subj ect [Type] [facility] Triamterene measurement [facility] Triple phosphate/Tot al in [facility] Immunizations Immunization Date Immunization Notes Care Provider [facility] 12-27-2022 influenza virus vaccine, unspecified formulation Zonia Chambers DPM Work Phone: [facility] 12-27-2022 influenza, unspecifi ed formulation Sena Carias [facility] 10-09-2021 SARS-CoV-2 mRNA (sgnlkccsduy-mdew-temt ose) vaccine Mohsen Windnagel [facility] 02-13-2021 COVID-19 mRNA, Comirnaty (Pfizer) DO Luis M Juarez Work Phone: [facility] 05-08-2020 COVID-19 mRNA, Comirnaty (Pfizer) DO Luis M Juarez Work Phone: [facility] Comment on above: Result Comment: 2022: TPV40 04-06-2020 SARS-CoV-2 (COVID-19 ) mRNA BNT-162b2 vax Mohsen Windnagel [facility] Comment on above: Result Comment: 2022: TPV40 04-02-2020 COVID-19 mRNA, Comirnaty (Pfizer) DO Luis M Juarez Work Phone: [facility] Comment on above: Result Comment: 2022: TPV40 07-17-2009 tetanus toxoid, reduced diphtheria toxoid, and acellular pertussis vaccine, adsorbed Mohsen Windnagel [facility] Payers Date Payer Category Payer Self-pay [id number] 2022 [facility] er [id number] 2020 Unknown [id number]. 1.13.693.2 .[id number] 1971 Unknown [id number] 2.16.840.1.644810.3.579.2 .593 1971 Unknown [id number] 2.16.840.1.763917.3.579.2 .593 1971 Unknown [id number] 2.16.840.1.572097.3.579.2 .593 1971 Unknown [id number] 2.16.840.1.520534.3.579.2 .593 1971 Unknown [id number] 2.16.840.1.418106.3.579.2 .593 1971 Unknown [id number] 2.16.840.1.119204.3.579.2 .593 1971 Unknown [id number] 2.16.840.1.204608.3.579.2 .593 1971 Unknown [id number] 2.16.840.1.720694.3.579.2 .593 1971 Unknown [id number] 2.16.840.1.054575.3.579.2 .593 1971 Unknown [id number] 2.16.840.1.723901.3.579.2 .593 1971 Unknown [id number] 2.16.840.1.667581.3.579.2 .593 1971 Unknown [id number] 2.16.840.1.741353.3.579.2 .1286 1971 Unknown [id number] 2.16.840.1.870499.3.579.2 .727 1971 Unknown [id number] 2.16.840.1.138727.3.579.2 .727 1971 Unknown [id number] 2.16.840.1.959830.3.579.2 .196 1971 Unknown [id number] 2.16.840.1.424187.3.579.2 .1259 1971 Unknown [id number] 2.16.840.1.694467.3.579.2 .1258 1971 Unknown [id number] 2.16.840.1.529442.3.579.2 .9 1971 Unknown [id number] 2.16.840.1.887558.3.579.2 .1258 1971 Unknown [id number] 2.16.840.1.089076.3.579.2 .1258 1971 Unknown [id number] 2.16.840.1.409292.3.579.2 .1259 1959 Unknown [id number] Unknown [id number] 2.16.840.1.287290.3.579.2 .531 Unknown [id number] 2.16.840.1.360105.3.579.2 .531 Social History Date Type Detail Facility Tobacco smoking status [facility] Unknown if ever smoked [facility] Work Phone: Start: 1970 Sex Assigned At Female F [facility] Start: 06-22-2022 End: 10-14-2024 Tobacco smoking status Never smoked tobacco (finding) [facility] Tobacco smoking status Never [facility] Start: 03-17-2023 End: 05-17-2023 Sex Assigned At Female [facility] Start: 04-20-2023 Tobacco use and exposure Smokeless tobacco non-user [facility] Start: 04-20-2023 End: 09-26-2024 Alcohol intake Ex-drinker (finding) [facility] Start: [...] Only a little [facility] (I/We) worried whether (my/our) food would run out before (I/we) got money to buy more. Never true [facility] Start: 12-18-2022 Alcohol Comment monthly [facility] Start: 02-08-2023 Gender identity Identifies as female gender (finding) [facility] Start: 02-08-2023 Sexual orientation Heterosexual (fin ding) [facility] Tobacco smoking status [facility] Tobacco smoking consumption unknown [facility] Start: 1970 Sex Assigned At Not on file C [facility] Sex Female (finding) [facility] NEGATED: Highlighted row N [facility] Goals Date Patient Goal Desired Activity /State Functional Status Date Assessment Result Facility 01-18-2024 Functional Status N/A [facility] 12-28-2022 Functional Status N/A [facility] Clinical Notes 08-15-2021 to 10-14-2024 Kamilla Patton NP - 09/26/2024 5:14 PM Ana Patton NP - 09/26/2024 5:13 PM RAYRAY MUELLER - 09/26/2024 4:00 PM Ana Patton NP - 09/26/2024 4:00 PM EDTPatient Instructions Note Date & Type Note Facility 10-14-2024 Radiology Diagnostic study note [place] [address] CT Scan Report Signed Patient: Cinthia Badillo MR#: [id number] : 1970 Acct:[id number] Age/Sex: 54 / F ADM Date: 5 Loc: ER Room: Type: [facility] ER Attending Dr: Copies to: Rajinder Elliott DO~ Ordering Provider: Rajinder Elliott DO Date of Service: 10/14/24 CT/CT soft tissue neck w con: facial swelling with lower jaw pain CT soft tissue neck w con 10/14/2024 4:00 PM SIGNS AND SYMPTOMS: ^facial swelling with lower jaw pain CONTRAST: 90 mL of intravenous Visipaque [id number] TECHNIQUE: Multidetector CT axial slices of the soft tissues of the neck were obtained with IV contrast. Sagittal and coronal reformats were reconstructed. CTwas performed with one or more of the following dose reduction techniques: Automated exposure control, adjustment of the mA and/or kV according to patient size, or use of iterative reconstruction technique. COMPARISON: None FINDINGS: Soft tissues of the orbits are within normal limits. The soft tissues of the infratemporal fossa fossa structures show no acute abnormality. Mucosal surfacesof the nasopharynx, oropharynx, hypopharynx, glottic, and subglottic airways aregrossly unremarkable. The parotid glands, left submandibular gland, and the thyroid gland are within normal limits. There is edema with adjacent fat stranding within and adjacent to the right submandibular gland suggesting sialoadenitis. There are a few adjacent prominent lymph nodes measuring up to 11 mm in short axis which may be inflammatory in nature. No evidence of salivary duct stone. The carotid and jugular circulations are within normal limits. The visualized lung parenchyma shows no acute pathology. No acute bony abnormalities are appreciated. The skull base, craniocervical junction, atlantoaxial joints are within normal limits. Polypoid mucosal thickening is noted in the left maxillary sinus. CT/CT soft tissue neck w con IMPRESSION: There is edema with adjacent fat stranding within and adjacent to the right submandibular gland suggesting sialoadenitis. There are a few adjacent prominent lymph nodes measuring up to 11 mm in short axis which may be inflammatory in nature. No evidence of salivary duct stone. Impression dictated by: Mike Gonzales M.D. 10/14/2024 4:15 PM Dictation Location: [place] [address] Transcribed By: [facility] 10/14/24 [id number] Dictated By: Mike Gonzales II, MD 10/14/24 1607 Signed By: 10/14/24 1614 [facility] Work Phone: 09-26-2024 History of Present illness Narrative Associated Problem(s): Gastro-esophageal reflux disease without esophagitis Recommendations: freq small meals, nothing to eat or drink at least 2 hours prior to bed, limit caffeine, alcohol, as well as spicy foods Meds to limit or avoid if possible: NSAIDS Elevate HOB if possible Current meds: pantoprazole BID- hold this Lengthy GERD hx trial of voquezna 20m po daily #6 samples (30 pills) lot [id number] exp 11/06 Associated Problem(s): Chest pain in adult Chest xray EKG Not reproducible Stress test and ECHO: 06/2023 Pt has having pain on the left side of chest was not necessarily when she was taking a deep breath or not however she felt like she could feel pain behind the left breat and to the side. She states that it would last for seconds but it would be a sharp pain. Pt states that the sharp pain would be frequent through out the day- has been going on for about a week now. Pt states her heart rate avg is 70s (per her watch) pt does not notice a pattern- has been whenever. Pt states the pain goes from a 0 to an 8 lasts for a few seconds and then she goes back to 0 on the pain scale. Pt last mammogram was 01/2024-normal Pt does perform self breast exams she states she does on occasions and not always monthly Images from the original note were not included. Cinthia Badillo is a 54 y.o. female presents with chief complaint of Breast Pain HPI: Pt has having pain on the left side of chest was not necessarily when she was taking a deep breath or not however she felt like she could feel pain behind the left breat and to the side. She states that it would last for seconds but it would be a sharp pain. Pt states that the sharp pain would be frequent through out the day- has been going on for about a week now. Pt states her heart rate avg is 70s (per her watch) pt does not notice a pattern- has been whenever. Pt states the pain goes from a 0 to an 8 lasts for a few seconds and then she goes back to 0 on the pain scale. Pt last mammogram was 01/2024-normal Pt does perform self breast exams she states she does on occasions and not always monthly GERD sxs: no significant changes, No recent illness, no diaphoresis, dyspnea, dizziness with this, no recent trauma SUBJECTIVE: MEDICATIONS: Current Outpatient Medications Medication Instructions amitriptyline (ELAVIL) 50 mg, Oral, Nightly pantoprazole (PROTONIX) 40 mg, Oral, 2 times daily Voquezna 20 mg, Daily zonisamide (Zonegran) 25 MG capsule TAKE 1 [...] cough, shortness of breath and wheezing. Cardiovascular: Positive for chest pain. Negative for palpitations and leg swelling. Gastrointestinal: Negative for abdominal pain, blood in stool, constipation, diarrhea, nausea and vomiting. Genitourinary: Negative for difficulty urinating, [...] status migrainosus, not intractable, unspecified migraine type Palpitation Pancreatitis ([facility]) 2018 Paresthesia Pelvic pain S/P laparoscopy Thickened endometrium Trigeminal neuralgia Past Surgical History: Procedure Laterality Date APPENDECTOMY 1991 or CHOLECYSTECTOMY HERNIA REPAIR 1974 HYSTERECTOMY 2019 ovaries still present, non cancerous KNEE ARTHROSCOPY W/ DEBRIDEMENT Right 1990 x2, 2010 LITHOTRIPSY OVARY SURGERY 1991 Ovarian Resection - [place] family history includes Arthritis in her mother; [...] her paternal grandfather. OBJECTIVE: Visit Vitals BP 108/78 (BP Location: Left arm, Patient Position: Sitting, BP Cuff Size: Adult long) Pulse 74 Temp 98.3 F (Temporal) Resp 18 Wt 212 lb SpO2 98% BMI 34.22 kg/m Smoking Status Never BSA 2.12 m Physical Exam Vitals and nursing note reviewed. Constitutional: General: She is not in acute distress. Appearance: Normal appearance. HENT: Head: Normocephalic and atraumatic. Right Ear: External ear normal. Left Ear: External ear normal. Nose: Nose normal. Mouth/Throat: Mouth: Mucous membranes are moist. Eyes: Extraocular Movements: Extraocular movements intact. Conjunctiva/sclera: Conjunctivae normal. Neck: Vascular: Carotid bruit present. Cardiovascular: Rate and Rhythm: Normal rate and regular rhythm. Pulses: Normal pulses. Heart sounds: Normal heart sounds. No murmur heard. Pulmonary: Effort: Pulmonary effort is normal. Breath sounds: Normal breath sounds. No wheezing or rhonchi. Abdominal: General: Bowel sounds are normal. There is no distension. Palpations: Abdomen is soft. There is no mass. Tenderness: There is no abdominal tenderness. Musculoskeletal: General: Normal range of motion. Cervical back: Normal range of motion and neck supple. Right lower leg: No edema. Left lower leg: No edema. Lymphadenopathy: Cervical: No cervical adenopathy. Skin: General: Skin is warm and dry. Capillary Refill: Capillary refill takes 2 to 3 seconds. Findings: No rash. Neurological: General: No focal deficit present. Mental Status: She is alert and oriented to person, place, and time. Psychiatric: Mood and Affect: Mood normal. Behavior: Behavior normal. Thought Content: Thought content normal. Judgment: Judgment normal. ASSESSMENT AND PLAN: Follow up in about 6 weeks (around 11/07/2024) for Recheck. Problem List Items Addressed This Visit Gastro-esophageal reflux disease without esophagitis Recommendations: freq small meals, nothing to eat or drink at least 2 hours prior to bed, limit caffeine, alcohol, as well as spicy foods Meds to limit or avoid if possible: NSAIDS Elevate HOB if possible Current meds: pantoprazole BID- hold this Lengthy GERD hx trial of voquezna 20m po daily #6 samples (30 pills) lot [id number] exp 11/06 Morbid (severe) obesity due to excess calories (CMS-HCC) - Primary Discussed with patient their BMI (actual, verses recommended). We have also discussed lifestyle modifications: attempts to perform physical activity as chronic conditions allow, also to monitor dietary intake: increasing protein/fruits/veggies and lowering carb intake (unless contraindicated). Limit sodas, juices, and sugary drinks. Chest pain in adult Chest xray EKG Not reproducible Stress test and ECHO: 06/2023 Relevant Orders XR chest 2 views ECG 12 lead Associated Problem(s): Morbid (severe) obesity due to excess calories (CMS-HCC) Discussed with patient their BMI (actual, verses recommended). We have also discussed lifestyle modifications: attempts to perform physical activity as chronic conditions allow, also to monitor dietary intake: increasing protein/fruits/veggies and lowering carb intake (unless contraindicated). Limit sodas, juices, and sugary drinks. documented in this encounter [facility] 09-26-2024 Instructions Kamilla Patton NP - 09/26/2024 4:00 PM EDT We will order cxr and EKG at [facility] Stop your current pantoprazole We will trial voquezna documented in this encounter [facility] 08-30-2024 History of Present illness Narrative Associated Problem(s): Abnormal kidney function Check basic, urine and micro GERD on and off Images from the original note were not included. Cinthia Badillo is a 54 y.o. female presents with chief complaint of GERD HPI: A1c 04/23/24 5.6 BUN 18, Cr 1.2, GFR 51.72 GERD She complains of choking, dysphagia and heartburn. She reports no abdominal pain, no belching, no chest pain, no coughing, no nausea, no sore throat or no wheezing. This is a chronic problem. The current episode started more than 1 year ago. The problem occurs frequently. The problem has been waxing and waning. The symptoms are aggravated by certain foods and lying down. Pertinent negatives include no anemia, fatigue, melena, muscle weakness, orthopnea or weight loss. Risk factors include obesity. She has tried a PPI for the symptoms. The treatment provided moderate relief. Past procedures include an EGD. SUBJECTIVE: MEDICATIONS: Current Outpatient Medications Medication Instructions amitriptyline (ELAVIL) 50 mg, Oral, Nightly pantoprazole (PROTONIX) 40 mg, Oral, 2 times daily zonisamide (Zonegran) 25 MG capsule TAKE [...] redness and visual disturbance. Respiratory: Positive for choking. Negative for cough, shortness of breath and wheezing. Cardiovascular: Negative for chest pain, palpitations and leg swelling. Gastrointestinal: Positive for dysphagia and heartburn. Negative for abdominal pain, blood in stool, constipation, diarrhea, melena, nausea and vomiting. GERD Genitourinary: Negative for [...] status migrainosus, not intractable, unspecified migraine type Palpitation Pancreatitis ([facility]) 2018 Paresthesia Pelvic pain S/P laparoscopy Thickened endometrium Trigeminal neuralgia Past Surgical History: Procedure Laterality Date APPENDECTOMY 1991 or CHOLECYSTECTOMY HERNIA REPAIR 1974 HYSTERECTOMY 2019 ovaries still present, non cancerous KNEE ARTHROSCOPY W/ DEBRIDEMENT Right 1990 x2, 2009 LITHOTRIPSY OVARY SURGERY 1991 Ovarian Resection - [place] family history includes Arthritis in her mother; [...] her paternal grandfather. OBJECTIVE: Visit Vitals BP 112/82 (BP Location: Left arm, Patient Position: Sitting, BP Cuff Size: Adult long) Pulse 76 Temp 98.5 F (Temporal) Resp 18 Wt 213 lb 12.8 oz SpO2 96% BMI 34.51 kg/m Smoking Status Never BSA 2.13 m Physical Exam Vitals and nursing note [...] Normal pulses. Heart sounds: Normal heart sounds. No murmur heard. Pulmonary: Effort: Pulmonary effort is normal. Breath sounds: Normal breath sounds. No wheezing or rhonchi. Abdominal: General: Bowel sounds are normal. There is no distension. Palpations: Abdomen is soft. There is no mass. Tenderness: There is no abdominal tenderness. Musculoskeletal: General: Normal range of motion. Cervical back: Normal range of motion and neck supple. Right lower leg: No edema. Left lower leg: No edema. Lymphadenopathy: Cervical: No cervical adenopathy. Skin: General: Skin is warm and dry. [...] Current meds: pantoprazole BID Lengthy GERD hx Elevated kidney function and we will recheck this Consider trial of voquezna Pulmonary hypertension, unspecified (HCC) - Primary As per ECHO on 06/2023 at [facility] No current symptoms Morbid (severe) obesity due to excess calories (CMS-HCC) Discussed with patient their BMI (actual, verses recommended). We have also discussed lifestyle modifications: attempts to perform physical activity as chronic conditions allow, also to monitor dietary intake: increasing protein/fruits/veggies and lowering carb intake (unless contraindicated). Limit sodas, juices, and sugary drinks. Abnormal kidney function Check basic, urine and micro Relevant Orders Basic metabolic panel Urinalysis with reflex microscopic (clean catch) Microalbumin / creatinine, urine ratio Associated Problem(s): Morbid (severe) obesity due to excess calories (CMS-HCC) Discussed with patient their BMI (actual, verses recommended). We have also discussed lifestyle modifications: attempts to perform physical activity as chronic conditions allow, also to monitor dietary intake: increasing protein/fruits/veggies and lowering carb intake (unless contraindicated). Limit sodas, juices, and sugary drinks. Associated Problem(s): Gastro-esophageal reflux disease without esophagitis Recommendations: freq small meals, nothing to eat or drink at least 2 hours prior to bed, limit caffeine, alcohol, as well as spicy foods Meds to limit or avoid if possible: NSAIDS Elevate HOB if possible Current meds: pantoprazole BID Lengthy GERD hx Elevated kidney function and we will recheck this Consider trial of voquezna Associated Problem(s): Pulmonary hypertension, unspecified (HCC) As per ECHO on 06/2023 at [facility] No current symptoms documented in this encounter [facility] 08-30-2024 Instructions Kamilla Patton NP - 08/30/2024 5:00 PM EDT Recheck kidney function and urine test Consider a change to Shanell documented in this encounter [facility] 03-29-2024 History of Present illness Narrative Images [...] Any Hospitalizations in the 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 year: 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: GI Concerns: Weight continues to go up, [...] LITHOTRIPSY OVARY SURGERY 1991 Ovarian Resection - [place] family history includes Arthritis in her mother; [...] (CMS/HCC) As per ECHO on 06/2023 at [facility] No current symptoms Morbid (severe) obesity [...] (CMS/HCC) As per ECHO on 06/2023 at [facility] No current symptoms documented in this encounter [facility] 03-29-2024 Instructions Kamilla Patton NP - 03/29/2024 6:00 PM EST No med changes Goal: start weight watchers 05/13/2024 Follow up in August with goal 200-205 documented in this encounter [facility] 01-18-2024 Hospital Discharge instructions Patient Education 01/18/2024 15:56:53 Kidney Stones, Dioo-sw-Wifb Kidney Stones Kidney stones are rock-like masses [...] Follow these instructions at home: Medicines Take yspc-nxn-jxxspcd and prescription medicines only as told by [...] Kidney Foundation (NKF): kidney.org [facility] (UCF): urologyhealth.org Contact a doctor if: You have [...] provider. Document Revised: 10/23/2022 Document Reviewed: 10/23/2022 [employer] Patient Education 2023 [employer]. 01/18/2024 15:56:52 Dietary Guidelines to Help Prevent [...] include: ?8 oz (237 mL) of milk, kptolli-kkvwqgnbkqnv-kbzpq milk, and calcium-fortifiedfruit juice. Calcium-fortified means that [...] ?Spinach (cooked), rhubarb, beets, sweet potatoes, and Tristanian chard. ?Peanuts. ?Potato chips, mozambican fries, and baked potatoes with skin on. ?Nuts and nut products. ?Chocolate. If you regularly take a diuretic medicine, make sure to eat at least 1 or 2 servings of fruits or vegetables that are high in potassium each day. These include: ?Avocado. ?Banana. ?Suwannee, prune, carrot, or tomato juice. ?Baked potato. [...] magnesium, fish oil, or vitamin B6. Take upxy-mje-mxdlkbf and prescription medicines only as told by [...] Casseroles. Pizza. Lasagna. Frozen meals. Potato chips. Lao fries. The items listed above may not [...] provider. Document Revised: 06/11/2022 Document Reviewed: 06/11/2022 [employer] Patient Education 2023 [employer]. Follow Up Care 12/28/2022 16:08:34 With:GENNA Carias APRN, Sena Ames, VIET, URL Address:Unknown When: Unknown [facility] 01-18-2024 Note Patient Education Nephrology Dietary Guidelines [...] ? 8 oz (237 mL) of milk, gwygtpt-glgkjtkypjly-rgtvk milk, and calcium-fortifiedfruit juice. Calcium-fortified means that [...] Spinach (cooked), rhubarb, beets, sweet potatoes, and Tristanian chard. ? Peanuts. ? Potato chips, mozambican fries, and baked potatoes with skin on. ? Nuts and nut products. ? Chocolate. ??? If you regularly take a diuretic medicine, make sure to eat at least 1 or 2 servings of fruits or vegetables that are high in potassium each day. These include: ? Avocado. ? Banana. ? Suwannee, prune, carrot, or tomato juice. ? Baked [...] fish oil, or vitamin B6. ??? Take kucq-znh-pacmzoz and prescription medicines only as told by your health (more content not included)... [facility] 12-27-2023 History of Present illness Narrative Associated [...] LITHOTRIPSY OVARY SURGERY 1991 Ovarian Resection - [place] family history includes Arthritis in her mother; [...] echo reads documented in this encounter [facility] 08-28-2024 History of Present illness Narrative Images from [...] LITHOTRIPSY OVARY SURGERY 1991 Ovarian Resection - [place] Family History Problem Relation Name Age of [...] Review Audit Reviewed by Avery Harvey MA (Aging Box Hand) on 11/10/23 at 1558 Medication Order Taking? Sig Documenting Provider Last Dose Status amitriptyline (Elavil) 50 MG tablet [id number] Yes Take 50 mg by mouth at bedtime Kamilla Patton NP Taking Active famotidine (Pepcid) 20 MG tablet [id number] Take 1 tablet (20 mg) by mouth at bedtime Kamilla Patton NP 10/20/23 5504 pantoprazole (ProtoNix) 40 MG EC tablet [id number] Yes Take 1 tablet (40 mg) by mouth in the morning and 1 tablet (40 mg) before bedtime. Take 40 mg by mouth in the morning and 40 mg before bedtime.. Kamilla Patton, ENTEROSTOMAL NURSE Taking Active zonisamide (Zonegran) 25 MG capsule [id number] Yes TAKE 1 CAPSULE BY MOUTH TWICE DAILY WITH 50 MG CAPS TO EQUAL 75 MG Mohsen Jenkins, KAYLAH Taking Active zonisamide (Zonegran) 50 MG capsule [id number] Yes Take 1 capsule (50 mg) by mouth in the morning and 1 capsule (50 mg) before bedtime. Mohsen Jenkins, KAYLAH Taking Active HPI HPI TRIGEMINAL NEURALGIA [...] in upper and lower extremities. Coordination Right: Ocyfnz-au-qdew normal. Rapid alternating movement normal.Left: Ahkuep-fm-zpdg normal. Rapid alternating movement normal. Gait Casual gait is normal including stance, stride, and arm swing. Motor Examination RUE Strength deltoid, biceps, triceps, wrist extensors, wrist extensors, wrist flexor, can intake worker strength 5/5. 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 RLE Strength illopsoas, quadriceps, tibialis [...] than 0.2 2. Autonomic testing completed in 2012 was normal 3. EMG of bilateral upper extremities in 2012 was normal 4. QSART in 2013 was normal 5. MRI scan of the brain completed in 2013 showed a 1.2 cm mass within the midline of the of the prior occipital sulcus with narrowing of the sagittal sinus representing an arachnoid granulation unchanged from prior imaging in 2011 6. MRI of cervical spine in 2012 [...] sooner if needed documented in this encounter [facility] 10-22-2023 Instructions Mendez Lund MD - 10/22/2023 3:30 PM EDT Stop pantoprazole and famotidine. Start esomeprazole 40mg twice daily - Take 30 min before breakfast and dinner 2. Return to clinic in 3 months. You can call [phone] to schedule documented in this encounter [facility] 10-22-2023 Note HNO ID: [id number] Author: MENDEZ LUND MD Service: ? Author [...] for internal providers or letter via the [employer] [employer] for external providers. I have communicated my name and active licensure. The patient's identity and physical location were verified at the time of this visit. Either the patient or their legal b2b sales representative has been informed of the risks [...] pH testing off PPI Mendez Lund MD [facility] 10-22-2023 History of Present illness Narrative NEW [...] for internal providers or letter via the [place] [employer] for external providers. I have communicated my name and active licensure. The patient's identity and physical location were verified at the time of this visit. Either the patient or their legal b2b sales representative has been informed of the risks [...] Mendez Lund MD documented in this encounter [facility] 04-20-2023 History of Present illness Narrative Images [...] 2009 OVARY SURGERY 1991 Ovarian Resection - [place] Family History Family History Problem Relation Name [...] corrected. Thank you for your understanding. Zonia Chambers DPM documented in this encounter [facility] 12-28-2022 Hospital Discharge instructions Patient Education 12/28/2022 [...] include: ?8 oz (237 mL) of milk, djorypk-wbjjdzubkmfr-kxrgy milk, and calcium-fortifiedfruit juice. Calcium-fortified means that [...] ?Spinach (cooked), rhubarb, beets, sweet potatoes, and Tristanian chard. ?Peanuts. ?Potato chips, mozambican fries, and baked potatoes with skin on. ?Nuts and nut products. ?Chocolate. If you regularly take a diuretic medicine, make sure to eat at least 1 or 2 servings of fruits or vegetables that are high in potassium each day. These include: ?Avocado. ?Banana. ?Suwannee, prune, carrot, or tomato juice. ?Baked potato. [...] magnesium, fish oil, or vitamin B6. Take xbad-ulr-xqsavrz and prescription medicines only as told by [...] Casseroles. Pizza. Lasagna. Frozen meals. Potato chips. Lao fries. The items listed above may not [...] provider. Document Revised: 11/10/2021 Document Reviewed: 11/10/2021 [employer] Patient Education 2022 [employer]. Follow Up Care 07/07/2022 08:32:51 With:PATI DOHERTY, Anand Fonseca, URL Address: [facility] [address], [place] [address]- When:Within 1 Year(s) Comments:w/SERGIO [facility] 09-30-2022 Procedure note [facility] 08-15-2021 History and physi annie note Note Date/Time August 15, 2021 8:18a m [facility] ENTER [address] [place] [address] Gastroenterology H&P Signed Patient: Cinthia Badillo MR#: [id number] : 1970 Acct:[id number] Age/Sex: 51 / F Adm Date: 2 Loc: Room: Type: [facility] Attending Dr: Luis M Juarez DO [...] Luis M Juarez Jr, DO> 08/15/21 0825 [facility] Work Phone: [phone]) [phone] [facility] Future Appointments Appointment Date:12/28/2022 02:45:00 PM Scheduled Provider:Anand LOPEZ MD Location:[facility] Future Appointments Appointment Date:01/07/2024 08:00:00 AM Scheduled Provider:Anand LOPEZ MD Location:[facility] Appointment Type:URO Office Visit [facility] evaluation note* Diagnosis Onset Date Resolution Status GERD (gastroesophageal reflux disease) acute Screening for colorectal cancer acute [facility] Work Phone: evaluation noteNo assessment information available [facility] Work Phone: evaluation note* Diagnosis Onychomycosis- Primary Dermatophytosis of nail Nail dystrophy Other specified disease of nail Pain in toes of both feet [facility] Gastroesophageal reflux disease without esophagitis Esophageal reflux [facility] Diagnosis Onset Date Resolution Status GERD (gastroesophageal reflux disease) acute [facility] Work Phone: Evaluation note* Diagnosis Gastroesophageal reflux disease, unspecified whether esophagitis present- Primary [facility] Diagnosis Gastroesophageal reflux disease without esophagitis- [...] Obesity (BMI 30-39.9) documented in [facility] encounter [facility]* Diagnosis Gastroesophageal reflux disease [...] esophagitis- Primary Esophageal reflux Pulmonary hypertension, unspecified ([facility]/HCC) Obesity (BMI 30-39.9) Gastroesophageal reflux disease without esophagitis Esophageal reflux documented in this encounter [facility]* Diagnosis Trigeminal neuralgia ([facility]) Trigeminal neuralgia Nonintractable headache, unspecified chronicity pattern, unspecified headache type documented in this encounter [facility]* Diagnosis Gastroesophageal reflux disease without esophagitis- Primary Esophageal reflux BMI 32.0-32.9,adult Gastroesophageal reflux disease without esophagitis- Primary Esophageal reflux Obesity (BMI 30-39.9) Encounter for screening mammogram for malignant neoplasm of breast- Primary Pulmonary hypertension ([facility]/HCC) Other chronic pulmonary heart diseases Gastroesophageal reflux disease without esophagitis Esophageal reflux Obesity (BMI 30-39.9) Other chest pain Gastroesophageal reflux disease without esophagitis- Primary Esophageal reflux Obesity (BMI 30-39.9) Gastroesophageal reflux disease without esophagitis- Primary Esophageal reflux Pulmonary hypertension, unspecified ([facility]/HCC) Obesity (BMI 30-39.9) Encounter for annual wellness visit- Primary Morbid (severe) obesity due to excess calories ([facility]/HCC) Gastro-esophageal reflux disease without esophagitis Body mass index (BMI) 35.0-35.9, adult Pulmonary hypertension, unspecified ([facility]/HCC) Gastroesophageal reflux disease without esophagitis Esophageal reflux documented in this encounter [facility]* Diagnosis Gastroesophageal reflux disease [...] Gastroesophageal reflux disease without esophagitis Esophageal reflux Hyperglycemia- Primary Other abnormal glucose documented in this encounter [facility]* Diagnosis Gastroesophageal reflux disease [...] Gastroesophageal reflux disease without esophagitis Esophageal reflux Abnormal kidney function- Primary Nonspecific abnormal results of kidney function study documented in this encounter [facility]* Diagnosis Gastroesophageal reflux disease without esophagitis- Primary Esophageal reflux BMI 32.0-32.9,adult Gastroesophageal reflux disease without esophagitis- Primary Esophageal reflux Obesity (BMI 30-39.9) Encounter for screening mammogram for malignant neoplasm of breast- Primary Pulmonary hypertension (HCC) Other chronic pulmonary heart diseases Gastroesophageal reflux disease without esophagitis Esophageal reflux Obesity (BMI 30-39.9) Other chest pain Gastroesophageal reflux disease without esophagitis- Primary Esophageal reflux Obesity (BMI 30-39.9) Gastroesophageal reflux disease without esophagitis- Primary Esophageal reflux Pulmonary hypertension, unspecified (HCC) Obesity (BMI 30-39.9) Encounter for annual wellness visit- Primary Morbid (severe) obesity due to excess calories (CMS-HCC) Gastro-esophageal reflux disease without esophagitis Body mass index (BMI) 35.0-35.9, adult Pulmonary hypertension, unspecified (HCC) Gastroesophageal reflux disease without esophagitis Esophageal reflux Gastro-esophageal reflux disease without esophagitis- Primary Pulmonary hypertension, unspecified (HCC) Morbid (severe) obesity due to excess calories (CMS-HCC) Abnormal kidney function Nonspecific abnormal results of kidney function study documented in this encounter [facility]* Diagnosis Gastroesophageal reflux disease without esophagitis- Primary Esophageal reflux BMI 32.0-32.9,adult Gastroesophageal reflux disease without esophagitis- Primary Esophageal reflux Obesity (BMI 30-39.9) Encounter for screening mammogram for malignant neoplasm of breast- Primary Pulmonary hypertension (HCC) Other chronic pulmonary heart diseases Gastroesophageal reflux disease without esophagitis Esophageal reflux Obesity (BMI 30-39.9) Other chest pain Gastroesophageal reflux disease without esophagitis- Primary Esophageal reflux Obesity (BMI 30-39.9) Gastroesophageal reflux disease without esophagitis- Primary Esophageal reflux Pulmonary hypertension, unspecified (HCC) Obesity (BMI 30-39.9) Encounter for annual wellness visit- Primary Morbid (severe) obesity due to excess calories (CMS-HCC) Gastro-esophageal reflux disease without esophagitis Body mass index (BMI) 35.0-35.9, adult Pulmonary hypertension, unspecified (HCC) Gastroesophageal reflux disease without esophagitis Esophageal reflux Gastro-esophageal reflux disease without esophagitis- Primary Pulmonary hypertension, unspecified (HCC) Morbid (severe) obesity due to excess calories (CMS-HCC) Abnormal kidney function Nonspecific abnormal results of kidney function study Chest pain in adult- Primary Morbid (severe) obesity due to excess calories (CMS-HCC) Gastro-esophageal reflux disease without esophagitis documented in this encounter [facility]* Diagnosis Onset Date Resolution Status Admit Date Migraine acute October 17 10:42am Sleep disturbance acute October 17, 2024 10:42am Trigeminal neuralgia acute Augu 2024 10:42am [facility] Work Phone: History and physical note Author Juani Blackwell [facility] September 30, 2022 8:25am Note Date/Time September 30, 2022 8:25 am [facility] EN[facility] [address] [place] [address] Gastroenterology H&P Signed Patient: Cinthia Badillo MR#: [id number] : 1970 Acct:[id number] Age/Sex: 52 / F Adm Date: 3 Loc: Room: Type: [facility] Attending Dr: Juani Blackwell MD Copies to: [...] Blackwell M.D. Documented By: Juani Blackwell MD 09/30/22 0824 Signed By: <Electronically signed by Juani Blackwell MD> 09/30/22 0825 [facility] Work Phone: Hospital course Narrative No data available for this section [facility] Discharge instructions No data available for this section [facility] Discharge instructions Additional Instructions DISCHARGE INSTRUCTIONS [...] problems. -Follow up with PCP. -Office number [phone]. [facility] Work Phone: Hospital Discharge instructions Additional Instructions Rest. Push fluids. Take your current medications as prescribed. Take the Toradol 10 mg by mouth twice a day for 5 days. Follow-up with neurology as scheduled. Return here if symptoms persist or worsen.[facility] Work Phone: Hospital Discharge instructions Additional Instructions If she states she developed worsening pain swelling redness or fevers do not hesitate to return otherwise follow-up with your [facility] Work Phone: Progress note No data available for this section [facility]ative)No reason for referral information available[facility] Work Phone: Chief Complaint and Reason for Visit Chief [...] for Visit GERD (gastroesophage al reflux disease) Chief Complaint Admit Date pain on right side of face October 12 11:05am Chief Complaint Admit Date pain on right side of face October 12 11:05am jaw pain October 14, 2024 12: 54pm Reason for Visit Admit Date Migraine October 17, 2024 10: 42am Sleep disturbance October 17, 2024 10: 42am Trigeminal neuralgia October 17, 2024 10 :42am Family History No Family History Records Found Relationship Condition Age at Onset Recorded Date/T jay grandparent Malignant neoplasm of breast Unknown Diabetes mellitus Unknown Not Specified Diabetes mellitus Unknown father Heart disease Unknown Relationship Condition Age at Onset Recorded Date/T jay grandparent Malignant neoplasm of breast Unknown Diabetes mellitus Unknown mother Diabetes mellitus Unknown father Heart disease Unknown Advance Directives No Advanced Directives Records Found Advance Directive Response Recorded Date/ Time Advance Directives No August 08 10:47am Summary Purpose Additional Source Comments Care [...] Active Kamilla Patton Primary Care Provider Active Hand Grinder Relationship Specialty Start Date End Date Nishant Aguilar MD [address] [place] [address] PCP - General Family Medicine 03/10/23 Kamilla Patton NP [address] [place] [address] Nurse Practitioner Family Medicine 03/10/23 Hand Grinder Relationship Specialty Start Date End Date Nishant Aguilar MD [address] [place] [address] PCP - General Family Medicine 03/10/23 Kamilla Patton NP [address] [place] [address] Nurse Practitioner Family Medicine 03/10/23 Team Status: Inactive Member Role Status Dates Kamilla Patton Primary Care Provider Active Sta rt: July 07, 2023 End: July 07, 2023 Juani Blackwell MD Attending Provider Active Start: July 07, 2023 End: July 07, 2023 Hand Grinder Relationship Specialty Start Date End Date Kamilla Patton Referring 09/27/23 Hand Grinder Relationship Specialty Start Date End Date Nishant Aguilar MD [address] [place] [address] PCP - General Family Medicine 05/17/23 Kamilla Patton NP [address] [place] [place] [address] Nurse Practitioner Family Medicine 03/10/23 Jerica Zhu MD [address] [place] [address] Referring Physician Neurology 06/23/23 Hand Grinder Relationship Specialty Start Date End Date Nishant Aguilar MD [address] [place] [address] PCP - General Family Medicine 05/17/23 Kamilla Patton NP [address] [place] [address] Nurse Practitioner Family Medicine 03/10/23 Jerica Zhu MD [address] [place] [address] Referring Physician Neurology 06/23/23 Hand Grinder Relationship Specialty Start Date End Date Nishant Aguilar MD [address] [place] [address] PCP - General Family Medicine 05/17/23 Kamilla Patton NP [address] [place] [address] Nurse Practitioner Family Medicine 03/10/23 Jerica Zhu MD [address] [place] [address] Referring Physician Neurology 06/23/23 Hand Grinder Relationship Specialty Start Date End Date Nishant Aguilar MD [address] [place] [address] PCP - General Family Medicine 05/17/23 Kamilla Patton NP [address] [place] [address] Nurse Practitioner Family Medicine 03/10/23 Jerica Zhu MD [address] [place] [address] Referring Physician Neurology 06/23/23 Hand Grinder Relationship Specialty Start Date End Date Nishant Aguilar MD [address] [place] [address] PCP - General Family Medicine 05/17/23 Kamilla Patton NP [address] [place] [address] Nurse Practitioner Family Medicine 03/10/23 Jerica Zhu MD [address] [place] [address] Referring Physician Neurology 06/23/23 Hand Grinder Relationship Specialty Start Date End Date Nishant Aguilar MD [address] [place] [address] PCP - General Family Medicine 05/17/23 Kamilla Patton NP [address] [place] [address] Nurse Practitioner Family Medicine 03/10/23 Jerica Zhu MD [address] [place] [address] Referring Physician Neurology 06/23/23 Hand Grinder Relationship Specialty Start Date End Date Nishant Aguilar MD [address] [place] [address] PCP - General Family Medicine 05/17/23 Kamilla Patton NP [address] [place] [address] Nurse Practitioner Family Medicine 03/10/23 Jerica Zhu MD [address] [place] [address] Referring Physician Neurology 06/23/23 Hand Grinder Relationship Specialty Start Date End Date Nishant Aguilar MD [address] [place] [address] PCP - General Family Medicine 05/17/23 Kamilla Patton NP [address] [place] [address] Nurse Practitioner Family Medicine 03/10/23 Jerica Zhu MD [address] [place] [address] Referring Physician Neurology 06/23/23 Hand Grinder Relationship Specialty Start Date End Date Nishant Aguilar MD [address] [place] [address] PCP - General Family Medicine 05/17/23 Kamilla Patton NP [address] [place] [address] Nurse Practitioner Family Medicine 03/10/23 Jerica Zhu MD [address] [place] [address] Referring Physician Neurology 06/23/23 Lina Conner PA [address] [place] [address] Physician Lead Java Programmer Neurology 06/06/24 Hand Grinder Relationship Specialty Start Date End Date Nishant Aguilar MD [address] [place] [address] PCP - General Family Medicine 05/17/23 Kamilla Patton NP [address] [place] [address] Nurse Practitioner Family Medicine 03/10/23 Jerica Zhu MD [address] [place] [address] Referring Physician Neurology 06/23/23 Lina Conner PA [address] [place] [address] Physician Lead Java Programmer Neurology 06/06/24 Hand Grinder Relationship Specialty Start Date End Date Nishant Aguilar MD [address] [place] [address] PCP - General Family Medicine 05/17/23 Kamilla Patton NP [address] [place] [address] Nurse Practitioner Family Medicine 03/10/23 Jerica Zhu MD [address] [place] [address] Referring Physician Neurology 06/23/23 Lina Conner PA [address] [place] [address] Physician Lead Java Programmer Neurology 06/06/24 Hand Grinder Relationship Specialty Start Date End Date Nishant Aguilar MD [address] [place] [address] PCP - General Family Medicine 05/17/23 Kamilla Patton NP [address] [place] [address] Nurse Practitioner Family Medicine 03/10/23 Jerica Zhu MD [address] [place] [address] Referring Physician Neurology 06/23/23 Lina Conner PA [address] [place] [address] Physician Lead Java Programmer Neurology 06/06/24 Team Status: Inactive Member Role Status Dates Kamilla Patton Primary Care Provider Active Sta rt: October 12, 2024 End: October 12, 2024 Katty Jackson APRN Emergency Provider Active S tart: October 12, 2024 End: October 12, 2024 Team Status: Inactive Member Role Status Dates Kamilla Patton Primary Care Provider Active Sta rt: October 14, 2024 End: October 14, 2024 Rajinder Elliott DO Emergency Provider Active S tart: October 14, 2024 End: October 14, 2024 Team Status: Inactive Member Role Status Dates Kamilla Patton Primary Care Provider Active Sta rt: October 17, 2024 End: October 17, 2024 Agnes Mcclain APRN Attending Provider Active Start: October 17, 2024 End: October 17, 2024 Goals (unrecognized section and content) Goals may [...] sectionGoals may be documented in an alternate sectionGoals may be documented in an alternate sectionGoals may be documented in an alternate section INFORMATION SOURCE (unrecogn ized section and content) DATE CREATED AUTHOR 08/24/2022 [facility] DATE CREATED AUTHOR AUTHOR'S ORGANIZ ATION 04/18/2023 [facility] DATE CREATED AUTHOR AUTHOR'S ORGANIZ ATION 10/25/2023 [facility] DATE CREATED AUTHOR AUTHOR'S ORGANIZ ATION 01/19/2024 [facility] DATE CREATED AUTHOR AUTHOR'S ORGANIZ ATION 08/02/2024 [facility] DATE CREATED AUTHOR AUTHOR'S ORGANIZ ATION 09/30/2024 [facility] EPIC DATE CREATED AUTHOR AUTHOR'S ORGANIZ ATION 10/27/2024 [facility] Reason for Visit (unrecogniz ed section and content) Reason Comments Follow-up Established pt prese nts today for 4 month lamisil fuv. Pt states she hasn't noticed much of a difference in her nails. Used topical medication as well. Reason Comments GERD Specialty Diagnoses / Procedures Referred By Contdelgado t Referred To Contact Gastroenterology Diagnoses Gastroesophageal reflux disease without esophagitis Procedures OFFICE/OUTPATIENT NEW HIGH MDM 60 MINUTES AMB REFERRAL TO GASTROENTEROLOGY Kamilla Patton, RELIGION INSTRUCTOR [address] [place] [address] Mendez Lund MD [address] [place] [address] Referral ID Status Reason Start Date Expiration Date V isits Requested Visits Authorized [id number] Outside PCP 09/23/2023 03/21/2024 1 1 Reason Comments Headache Trigeminal Neuralgia Numbness Reason Comments Gastroesophageal reflux disease without esophagitis Reason Comments GERD Reason Comments Breast Pain Source Comments (unrecognize d section and content) In the event this informatio n is protected by the Federal Confidentiality of Alcohol and Drug Abuse Patient Records regulations: The Federal rules restrict any use of the information to criminally investigate or prosecute any alcohol or drug abuse patient.[facility] FOR RECORDS PERTAINING TO PATIENTS WHO ARE [...] BE BASED ON THE PRIMARY CLINICAL RECORDS. [employer] [facility]. provides no warranty or guarantee of the accuracy or completeness of information in this document.
[2024-11-04 09:30] LABS: Anion Gap 12.0; Blood Urea Nitrogen 22.0 mg/dL (7.0-18.0); Calcium 8.8 mg/dL (8.5-10.1); Carbon Dioxide 26.8 mmol/L (21.0-32.0); Chloride 107 mmol/L (98-107); Estimated GFR (African America >60 (>=60 mL/min/1.73m^2); Estimated GFR (Non-African Ame >60 (>=60 mL/min/1.73m^2); Glucose 104 mg/dL (74-106); Potassium 3.8 mmol/L (3.5-5.1); Sodium 142 mmol/L (136-145)
[2024-11-04 09:37] LABS: Glucose Urine UA NEGATIVE (NEGATIVE)
[2024-11-04 09:52] LABS: Cast Seen? NONE SEEN #/LPF (NONE SEEN); Crystals Seen? None Seen #/HPF (None Seen)
== END 2024-11-04 08:25 | disposition home or self-care (01) ==
PROVIDERS: PCP Nurse Practitioner; Visit Provider Nurse Practitioner
DX: N28.9 Disorder of kidney and ureter, unspecified (principal); R73.9 Hyperglycemia, unspecified
CPT/HCPCS: 36415; 80048; 81001; 82043; 82570; 83036

== ENCOUNTER 2025-01-06 09:50 | Outpatient (OUT) | payer BC, SELFPAY ==
--- OUTSIDE RECORDS SUMMARY | 2025-01-06 09:55 | XMS_ITS | Clinical Summary ---
Author Organization [facility] Healthcare Address [address] [place] [address] Care Team Providers Care Crisis Worker Name Role Phone Kamilla Patton NP Unavailable [phone] Nishant Aguilar MD Primary Care Provider [phone] Bismark Zhu MD Unavailable [phone] Lina Conner Unavailable Allergies Active AllergyReactionsCriticalityNoted RvnqByzwlczvPjddouahenhWrtpo97/02/2018 Medications MedicationSigDispense QuantityRefillsLast FilledStart DateEnd DateStatus pantoprazole (ProtoNix) 40 MG EC tablet Indications:Gastroesophageal reflux disease without esophagitisTake 1 tablet (40 mg) by mouth in the morning and 1 tablet (40 mg) before bedtime. 180 tablet 5Active zonisamide (Zonegran) 50 MG capsule Indications:Trigeminal neuralgiaTake 1 capsule (50 mg) by mouth in the morning and 1 capsule (50 mg) before bedtime. 180 capsule 6Active amitriptyline (Elavil) 50 MG tablet Indications:Trigeminal neuralgiaTake 1 tablet (50 mg) by mouth at bedtime 90 tablet 6Active zonisamide (Zonegran) 25 MG capsule Indications:Trigeminal neuralgia,Migraine without aura and without status migrainosus, not intractableTAKE 1 CAPSULE BY MOUTH TWICE DAILY WITH 50 MG CAPS TO EQUAL 75 MG 180 capsule 5Active Vonoprazan Fumarate (Voquezna) 20 MG tablet Take 20 mg by mouth DailyActive baclofen (Lioresal) 10 MG tablet Take 5 mg by mouth every 8 (eight) hours if needed for muscle dcmjkq6710/17/2024 Active Active Problems ProblemNoted DateDiagnosed DateChest pain in adult09/26/2024 Assessment & Plan (09/26/2024 5:13 PM EDT): Chest xray EKG Not reproducible Stress test and ECHO: 06/2023 Abnormal kidney /05/2025 Assessment & Plan (08/30/2024 5:30 PM EDT): Check basic, urine and micro Inhyfdwtahhqq21/05/2025Morbid (severe) obesity due to excess qpizxiiy52/15/2025 Assessment & Plan (09/26/2024 6:47 AM EDT): Discussed with patient their BMI (actual, verses recommended). We have also discussed lifestyle modifications: attempts to perform physical activity as chronic conditions allow, also to monitor dietary intake: increasing protein/fruits/veggies and lowering carb intake (unless contraindicated). Limit sodas, juices, and sugary drinks. Assessment & Plan (08/30/2024 5:30 PM EDT): Discussed with patient their BMI (actual, verses recommended). We have also discussed lifestyle modifications: attempts to perform physical activity as chronic conditions allow, also to monitor dietary intake: increasing protein/fruits/veggies and lowering carb intake (unless contraindicated). Limit sodas, juices, and sugary drinks. Assessment & Plan (03/29/2024 7:00 PM EST): Discussed with patient their BMI (actual, verses recommended). We have also discussed lifestyle modifications: attempts to perform physical activity as chronic conditions allow, also to monitor dietary intake: increasing protein/fruits/veggies and lowering carb intake (unless contraindicated). Limit sodas, juices, and sugary drinks. Goal start WW 05/13/24, fu 08/13/24 with goal loss 15 pounds Encounter for annual wellness visit03/29/2024 Assessment & Plan (03/29/2024 7:10 AM EST): Reviewed Ht/Wt/BMI Recommend eye exam yearly Recommend dental exams twice a year Balance work/leisure activities Exercises is recommended most days of the week (appropriate as chronic conditions allow) Follow up yearly and prn Utkzzdfbgfq22/22/2024Migraine without aura and without status migrainosus, not yirovnjbjma76/22/5599Jyrllmjorli84/22/2024Sleep reqopkvcuhp07/22/2024Nocturnal tsmaeajlp64/22/2024Nocturnal qsqeegx6807/19/2023Other chest pain07/05/2023 Assessment & Plan (07/05/2023 12:01 PM EDT): Has stress test Consider cardiology referral for Pulmonary HTN evaluation Encounter for screening mammogram for malignant neoplasm of fxiixn2907/05/2023 Pulmonary hypertension, vgsgzukuhvo89/22/2024 Overview (07/05/2023): Elevated pressures noted on ECHO 06/2023 at [facility] Assessment & Plan (08/30/2024 7:54 AM EDT): As per ECHO on 06/2023 at [facility] No current symptoms Assessment & Plan (03/29/2024 6:59 PM EST): As per ECHO on 06/2023 at [facility] No current symptoms Assessment & Plan (12/27/2023 7:38 AM EDT): Per echo reads Assessment & Plan (07/05/2023 11:41 AM EDT): Noted on ECHO, and she has had a sleep study done with neurology, no sleep apnea, but does have hypoxemia She is scheduled to see a Dump Motorman end of July 2023 Body mass index (BMI) 35.0-35.9, adult05/17/2023 Assessment & Plan (12/27/2023 7:06 PM EDT): Consider WW Gastro-esophageal reflux disease without crcjorbmxgn10/18/2018 Assessment & Plan (09/26/2024 5:15 PM EDT): Recommendations: freq small meals, nothing to eat or drink at least 2 hours prior to bed, limit caffeine, alcohol, as well as spicy foods Meds to limit or avoid if possible: NSAIDS Elevate HOB if possible Current meds: pantoprazole BID- hold this Lengthy GERD hx trial of voquezna 20m po daily #6 samples (30 pills) lot [id number] exp 11/06 Assessment & Plan (08/30/2024 5:30 PM EDT): Recommendations: freq small meals, nothing to eat or drink at least 2 hours prior to bed, limit caffeine, alcohol, as well as spicy foods Meds to limit or avoid if possible: NSAIDS Elevate HOB if possible Current meds: pantoprazole BID Lengthy GERD hx Elevated kidney function and we will recheck this Consider trial of voquezna Assessment & Plan (03/29/2024 7:07 AM EST): Recommendations: freq small meals, nothing to eat or drink at least 2 hours prior to bed, limit caffeine, alcohol, as well as spicy foods Meds to limit or avoid if possible: NSAIDS Elevate HOB if possible Current meds: pantoprazole BID Lengthy GERD hx Assessment & Plan (12/27/2023 7:06 PM EDT): Cont PPI at BID as well as famotidine ONLY on PRN basis Fu in 3 months Continue w aggressive GERD therapy, weight loss Assessment & Plan (09/20/2023 7:50 PM EDT): Wants referral to GI in [facility] Cont PPI at BID as well as famotidine Fu in 3 months Continue w aggressive GERD therapy Assessment & Plan (07/05/2023 11:41 AM EDT): Cont with GI Consider refer to [facility] for further evaluation Assessment & Plan (05/17/2023 7:38 PM EST): Continue protonix at 20mg BID, fu in 8 weeks She is going to call the GI in [place], go back again to see what else he recommends If nothing, will find new GI Having a profound effect on quality of life Assessment & Plan (03/18/2023 5:12 PM EST): Will stop famotidine Restart protonix at 20mg BID, fu in 6 weeks If not better will send to see new GI if not better Resolved Problems ProblemNoted DateDiagnosed DateResolved DateBMI 32.0-32.9,adult03/18/2023 4Pancreatitis ([facility]) Encounters DateTypeDepartmentCare RgstLtdnsmbhdit45/25/2025Results Follow-Up [facility] [address] [place] [address] Aracelis Delarosa MA MLR HEMOGLOBIN A1C, ALL BASIC METABOLIC PANEL, [facility] MICROALB CREAT RATIO RANDOM, Additional followed-up results: linisync Result Encounter [facility] External Department Unsolicited Kamilla Patton NP from Last 3 Months Immunizations ImmunizationAdministration DatesNext DueInfluenza, Oyhcobkgbzm57/15/2023Tdap 07/17/2009 Family History Medical HistoryRelationNameCommentsCOPDFatherAlbertCoronary artery diseaseFather AlbertDiabetesFatherAlbertHeart attackFatherAlbertHeart diseaseFatherAlbert HyperlipidemiaFatherAlbertHypertensionFatherAlbertPulmonary fibrosisFatherAlbert Breast cancerMaternal GrandmotherArthritisMotherMariaDiabetesMotherMariaHearing lossMotherMariaHyperlipidemiaMotherMariaHypertensionMotherMariaMultiple sclerosisNieceStomach cancerPaternal GrandfatherRelationNameStatusCommentsFather AlbertDeceasedMaternal GrandmotherMotherMariaAliveNiecePaternal Grandfather Social History Tobacco UseTypesPacks/DayYears UsedDateSmoking Tobacco: NeverSmokeless Tobacco: Never Tobacco Cessation:Counseling Given: Not Answered Alcohol UseStandard Drinks/WeekCommentsNot Currently2 (1 standard drink = 0.6 oz pure alcohol)monthlyHumiliation, Afraid, Rape, and Kick questionnaireAnswerDate RecordedWithin the last year, have you been afraid of your partner or ex-partner?No03/17/2023Within the last year, have you been humiliated or emotionally abused in other ways by your partner or ex-partner?No03/17/2023 Within the last year, have you been kicked, hit, slapped, or otherwise physically hurt by your partner or ex-partner?No03/17/2023Within the last year, have you been raped or forced to have any kind of sexual activity by your part ner or ex-partner?No03/17/2023Social Connection and Isolation PanelAnswerDate RecordedIn a typical week, how many times do you talk on the phone with family, friends, or neighbors?More than three times a week03/17/2023How often do you get together with friends or relatives?More than three times a week03/17/2023How often do you attend amish or gnosticist services?Patient tozlybxx32/03/2024o you belong to any clubs or organizations such as amish groups, unions, fraternal or athletic groups, or school groups?Patient taxajrxk56/03/2024How often do you attend meetings of the clubs or organizations you belong to?Patient znozxmsz22/03/2024re you , , , , never , or living with a partner?Eyccskn9403/17/2023UDIT-CAnswerDate RecordedQ1: How often do you have a drink containing alcohol?Monthly or less03/17/2023Q2: How many drinks containing alcohol do you have on a typical day when you are drinking?1 or Q3: How often do you have six or more drinks on one occasion?Never03/17/2023Overall Financial Resource Strain (CARDIA)AnswerDate RecordedHow hard is it for you to pay for the very basics like food, housing, medical care, and heating?Not hard at all03/17/2023HQ-2AnswerDate Recorded Patient Health Questionnaire-2 [facility]ybwb648Fin[facility] - Occupational Stress QuestionnaireAnswerDate RecordedDo you feel stress - tense, restless, nervous, or anxious, or unable to sleep at night because your mind is troubled all the time - these days?Only a elswpq6903/17/2023Exercise Vital SignAnswerDate RecordedOn average, how many days per week do you engage in moderate to strenuous exercise (like a brisk walk)?3 days03/17/2023On average, how many minutes do you engage in exercise at this level?30 min03/17/2023Hunger Vital SignAnswerDate RecordedWithin the past 12 months, you worried that your food would run out before you got the money to buymore.Never true03/17/2023 Within the past 12 months, the food you bought just didn't last and you didn't have money to get more.Never true03/17/2023RAPARE - TransportationAnswerDate RecordedIn the past 12 months, has lack of transportation kept you from medical appointments or from getting medications?No03/17/2023In the past 12 months, has lack of transportation kept you from meetings, work, or from getting things needed for daily living?No03/17/2023Housing Stability Vital SignAnswerDate RecordedIn the last 12 months, was there a time when you were not able to pay the mortgage or rent on time?No03/17/2023In the last 12 months, how many places have you lived?In the last 12 months, was there a time when you did not have a steady place to sleep or slept in sapphireelter (including now)?No 03/17/2023CommentsUnknownSex and Gender InformationValueDate RecordedSex Assigned at TvsdpWvcwfc62/27/2023 7:39 PM ESTLegal VniBaawmg98/15/2023 11:47 PM EDTGender KgioijxqJwaxvy55/27/2023 7:39 PM ESTSexual OrientationStraight 02/08/2023 7:39 PM EST Last Filed Vital Signs Vital SignReadingTime TakenCommentsBlood Khxuseep125/7807 4:07 PM EDT Wmefa2709 4:07 PM BVNCvqyavslyfi23.8 ??C (98.3 ??F)09/26/2024 4:07 PM EDTRespiratory Xrps072309/26/2024 4:07 PM EDTOxygen Zzzkfhhlme07%09/26/2024 4:07 PM EDTInhaled Oxygen Concentration--Hgfwhb24.2 kg (212 lb)09/26/2024 4:07 PM EDT Ivbskt916.6 cm (5' 6 )06/06/2024 4:19 PM EDTBody Mass Index34.22006/06/2024 4:19 PM EDT Plan of Treatment Health MaintenanceDue DateLast DoneCommentsCT Uorktqjdgcig1971FIT-DNA 1970FIT1971FOBT01/25/19710975Smzjyiiqiodtb1971HPV/Pewqlt3701/25/2001 Pap SmearInfluenza Vaccine (#1)/Mammogram /01/2024, 01/21/2024, 06/16/2022, Additional history exists Xdzjiqhjlrm77/03/203206/05/2021, 2Colorectal Cancer Npkpwjpmd67/03/2032 Cervical Cancer ScreeningDiscontinued Procedures Procedure NamePriorityDate/TimeAssociated DiagnosisCommentsALL BASIC METABOLIC MCRVGDlqvfcp18/23/2025 8:58 AM EDT MLR HEMOGLOBIN X5AOitxbmj81/23/2025 8:58 AM EDT TBH URINE MICROSCOPIC HYBLMiepask91/23/2025 8:25 AM EDT TBH UA (CLEAN/CATCH) MICROSCOPIC IF ORGLPXGGKzlypwj04/23/2025 8:25 AM EDT TBH MICROALB CREAT RATIO QQPFEYBhlghpg58/23/2025 8:25 AM EDT BI MAMMOGRAM SCREENING TOMOSYNTHESIS ISBNZKNMTTalxwwp51/11/2024 9:21 AM ESTfrom Last 3 Months or Most Recently Relevant to Health Maintenance Results * MLR HEMOGLOBIN A1C (11/04/2024 8:58 AM EDT)ComponentValueRef RangeTest Method Analysis TimePerformed AtPathologist SignatureGLYCOHEMOGLOBIN A1C5.24.5 - 6.2 %TBHComment: ADA RECOMMENDED LIMIT 4.0 - 6.0 ADA THERAPEUTIC TARGET < 7.0 ACTION SUGGESTED > 7.0 ESTIMATED AVERAGE COSSXKH923xs/dLTBHSpecimen (Source)Anatomical Location / LateralityCollection Method / VolumeCollection TimeReceived Time11/04/2024 8:58 AM EDT11/04/2024 9:06 AM EDT Narrative CLINISYNC - 11/04/2024 9:31 AM EDT Authorizing ProviderResult TypeResult StatusLisa Aichholz NPCLINISYNCFinal ResultPerforming OrganizationAddressCity/State/ZIP CodePhone Number [facility] * (ABNORMAL) ALL BASIC METABOLIC PANEL (11/04/2024 8:58 AM EDT)ComponentValueRef RangeTest MethodAnalysis TimePerformed AtPathologist HekkweshpKEXVPG377244 - 145 mmol/LTBHPOTASSIUM3.83.5 - 5.1 mmol/UVIGNHJPZOPM72841 - 107 mmol/LTBH [place] KVRRXCC13.821.0 - 32.0 mmol/LTBHANION GAP12.2FYELEVJKBE64580 - 106 mg/dLTBHBLOOD UREA JQAPPKRS28.0(H)7.0 - 18.0 mg/dLTBHCREATININE0.920.55 - 1.02 mg/dLTBHTBH EGFR-AF [place]>60>=60 mL/min/1.73m 2TBHTBH EGFR-NON AF [place] >60>=60 mL/min/1.73m 2TBHBUN CREATININE RATIO23.9LCTLUEMRAX8.88.5 - 10.1 mg/dL TBHSpecimen (Source)Anatomical Location / LateralityCollection Method / Volume Collection TimeReceived Time11/04/2024 8:58 AM EDT11/04/2024 9:06 AM EDT Narrative CLINISYNC - 11/04/2024 9:32 AM EDT Authorizing ProviderResult TypeResult StatusLisa [facility] Hospitalz NPCLINISYNCFinal ResultPerforming OrganizationAddressCity/State/ZIP CodePhone Number [facility]IN[facility]NC [facility] * (ABNORMAL) [facility] URINE MICROSCOPIC ONLY (11/04/2024 8:25 AM EDT)ComponentValue Ref RangeTest MethodAnalysis TimePerformed AtPathologist SignatureTBH WBC0-2 (A)NONE SEEN #/HPFTBHTBH RBC0-20 - 2 #/HPFTBHBACTERIA URINETRACE(A)NONE SEEN #/HPFTBHMUCUS URINENONE SEENNONE SEENTBHSQUAMOUS EPITHELIAL CELL URINEFEW(A) NONE/RARE #/LPFTBHCRYSTALS SEEN?None SeenNone Seen #/HPFTBHCAST SEEN?NONE SEEN NONE SEEN #/LPFTBHSpecimen (Source)Anatomical Location / LateralityCollection Method / VolumeCollection TimeReceived Time11/04/2024 8:25 AM EDT11/04/2024 9:06 AM EDT Narrative MARIANO - 11/04/2024 9:52 AM EDT Authorizing ProviderResult TypeResult StatusLisa [facility]z NPCLINISYNCFinal ResultPerforming OrganizationAddressCity/State/ZIP CodePhone Number CLINTEDNC TB * (ABNORMAL) TBH UA (CLEAN/CATCH) MICROSCOPIC IF INDICATE (11/04/2024 8:25 AM EDT)ComponentValueRef RangeTest MethodAnalysis TimePerformed AtPathologist SignatureCOLOR URINELT. YELLOWYELLOWTBHCLARITY URINECLEARCLEARTBHSPECIFIC GRAVITY URINE1.0101.005 - 1.025TBHPH URINE7.05.0 - 9.0TBHPROTEIN URINENEGATIVE NEG/TRACE mg/dLTBHGLUCOSE URINE UANEGATIVENEGATIVE mg/dLTBHBILIRUBIN URINE NEGATIVENEGATIVETBHKETONES URINENEGATIVENEGATIVE mg/dLTBHBLOOD URINETRACE-L NEGATIVETBHNITRITE URINENEGATIVENEGATIVETBHUROBILINOGEN URINE0.20.2 - 1.0 EU/dLTBHLEUKOCYTE ESTERASE URINESMALL(A)NEGATIVETBHURINE MICROSCOPIC INDICATED YESTBHSpecimen (Source)Anatomical Location / LateralityCollection Method / VolumeCollection TimeReceived Time11/04/2024 8:25 AM EDT11/04/2024 9:06 AM EDT Narrative CLINISYNC - 11/04/2024 9:52 AM EDT Authorizing ProviderResult TypeResult StatusLisa Bisihholz NPCLINISYNCFinal ResultPerforming OrganizationAddressCity/State/ZIP CodePhone Number [facility] * [facility]H MICROALB CREAT RATIO RANDOM (11/04/2024 8:25 AM EDT)ComponentValueRef RangeTest MethodAnalysis TimePerformed AtPathologist SignatureMICROALBUMIN URINE RANDOM<1.3<=30.0 mg/dLTBHCREATININE URINE KLHZXM81.1820.00 - 300.00 mg/dLTBHSpecimen (Source)Anatomical Location / LateralityCollection Method / VolumeCollection TimeReceived Time11/04/2024 8:25 AM EDT11/04/2024 9:06 AM EDT Narrative CLINISYNC - 11/04/2024 9:36 AM EDT Authorizing ProviderResult TypeResult StatusLisa Bisihholz NPCLINISYNCFinal ResultPerforming OrganizationAddressCity/State/ZIP CodePhone Number [facility] * Bilateral screening mammogram with tomosynthesis (01/24/2024 9:21 AM EST) Anatomical RegionLateralityModalityBreastBilateralMammography Narrative Authorizing ProviderResult TypeResult StatusLisa Aichholz NPIMG BI PROCEDURES Final Result from Last 3 Months or Most Recently Relevant to Health Maintenance Insurance * Guarantor: Colton Badillo TypeRelation to PatientDate of BirthPhone Billing AddressPersonal/VmocwpCsfw1970 [place] [address] Care Teams Team MemberRelationshipSpecialtyStart DateEnd Date Nishant Aguilar MD PCP - GeneralFamily Medicine05/17/23 Kamilla Patton NP Nurse PractitionerFamily Amqlxoed12/27/23 Bismark Zhu MD Referring PhysicianNeurology06/23/23 Lina Conner PA Physician AssistantNeurology06/06/24
--- OUTSIDE RECORDS SUMMARY | 2025-01-06 09:55 | XMS_ITS | Clinical Summary ---
Author Organization [facility] Address [id number] [place] [address] Care Team Providers Care Polymer Scientist Name Role Phone Christine Carmona Raymundo SHARPE-BRANCH SERVICE SPECIALIST Primary Care Provider [phone] Allergies Active AllergyReactionsCriticalityNoted EjvkBzxxcgunMmacecjaaeaJxmcf78/02/2018 Medications MedicationSigDispense QuantityRefillsLast FilledStart DateEnd DateStatus amitriptyline (ELAVIL) 25 mg tablet Take 25 mg by mouth daily.06/19/2017Active pantoprazole (PROTONIX) 40 mg EC tablet Take 40 mg by mouth daily.07/05/2017Active mvgbwjxj-ocat-BV-calcium &mins (THERAGRAN-M) 9 mg iron-400 mcg tablet Take 1 tablet by mouth daily.Active omega-3 fatty acids-fish oil (FISH OIL) 300-1,000 mg capsule Take 2 g by mouth daily.Active cranberry 400 mg capsule Take 400 mg by mouth daily.Active calcium carbonate (OS-JACKIE) 600 mg (1,500 mg) tablet Take 600 mg by mouth daily with breakfast.Active oxyCODONE-acetaminophen (PERCOCET) 5-325 mg per tablet Indications:Calculus of gallbladder with chronic cholecystitis without obstructionTake 1 tablet by mouth every 6 (six) hours as needed for pain for up to 15 doses. Max Daily Amount:4 tablets 15 tablet 07/20/2017Active Additional Information Patient not taking.Reported on 07/30/2017 Active Problems No known active problems Family History Medical HistoryRelationNameCommentsHeart diseaseFatherDiabetesMotherBreast cancerPaternal GrandmotherRelationNameStatusCommentsFatherAliveMotherAlive Paternal Grandmother Social History Tobacco UseTypesPacks/DayYears UsedDateSmoking Tobacco: NeverSmokeless Tobacco: Never Tobacco Cessation:Counseling Given: Yes Alcohol UseStandard Drinks/WeekCommentsYes0 (1 standard drink = 0.6 oz pure alcohol)SOCIALLYChildcareAnswerDate JwgufqaqDjhciawulGbygvbr28/12/2019Employment AnswerDate ZuqhmfyvNawpanscmeGyhprzb20/12/2019Purpose - LifeAnswerDate Recorded Purpose and direction in dbjkLerseou99/10/2021CommentsNoSex and Gender InformationValueDate RecordedSex Assigned at BirthNot on fileLegal SexFemale 10/18/2014 11:34 AM EDTGender IdentityNot on fileSexual OrientationNot on file Last Filed Vital Signs Vital SignReadingTime TakenCommentsBlood Gdzzefey484/7606 10:42 AM EDT Swfaf2222/18/2018 10:23 AM WTQVkjnxosazbw72.1 ??C (98.8 ??F)07/21/2017 4:30 PM EDTRespiratory Pdmn605507/21/2017 4:30 PM EDTOxygen Usgpqsvbko91%07/21/2017 4:31 PM EDTInhaled Oxygen Concentration--Ugvlhx58.6 kg (180 lb)05/01/2019 4:16 PM EST Subrsn410.1 cm (5' 5 )05/01/2019 4:16 PM ESTBody Mass Index29.95005/01/2019 4:16 PM EST Plan of Treatment Health MaintenanceDue DateLast DoneCommentsDepression Ubiovjcrc60/13/1983Tobacco Ghocljdic25/13/1983Adult BMI Vccfhzfen33/13/1989Pap Smear01/26/1992DTaP,Tdap and Td Vaccines (2 - Td or Tdap)Zoster (Shingles) Vaccine (1 of 2)1COVID-19 Vaccine ( season)5010/09/2021, 02/13/2021, 05/08/2020, Additional history existsInfluenza Gfdtogk23/03/2024 12/27/2022 Medical Devices Not on file Insurance Care Teams Team MemberRelationshipSpecialtyStart DateEnd Date Christine Carmona, PURCHASING ASSOCIATE-BRANCH SERVICE SPECIALIST PCP - GeneralNalice Practitioner07/07/17
--- OUTSIDE RECORDS SUMMARY | 2025-01-06 10:00 | XMS_ITS | CCD ---
Author Organization [facility] Informat ion Partnership [facility] Care Team Providers Care Bridge/Structure Inspection Team Leader Name Role Phone Larry DO Luis M Montano Attending Provider [phone] NON STAFF Primary Care Provider Unavaildina e NON STAFF Primary Care Provider Unavaildina e LESLYE Pace Mohsen Attending Provider [phone] MD Anand Krueger Attending Provider AICHHOLZ, KAMILLA J Primary Care Physician PATI ., DR MICHEL Attending Unavailable KRUEGER ., DR MICHEL Consulting Unavailable AICHHOLZ, ADOBE ARCHITECT KAMILLA Primary Care Unavailable KRUEGER ., DR MICHEL Admitting Unavailable GALVEZ, AGNES Consulting Unavailable KRUEGER ., DR MICHEL Consulting Unavailable AICHHOLZ, ADOBE ARCHITECT KAMILLA Primary Care Unavailable KRUEGER ., DR MICHEL Admitting Unavailable KRUEGER ., DR MICHEL Attending Unavailable ZIEBER, DR JERICA Fonseca Consulting Unavailable VICTORINO, KYLE Consulting Unavailable MARY ANN II, GEOVANNI Consulting Unavailable KRUEGER ., DR MICHEL Attending Unavailable AICHHOLZ, ADOBE ARCHITECT KAMILLA Primary Care Unavailable KRUEGER ., DR MICHEL Admitting Unavailable AICHHOLZ, ADOBE ARCHITECT KAMILLA Admitting Unavailable AICHHOLZ, ADOBE ARCHITECT KAMILLA Attending Unavailable AICHHOLZ, ADOBE ARCHITECT KAMILLA Consulting Unavailable AICHHOLZ, ADOBE ARCHITECT KAMILLA Primary Care Unavailable ZIEBER, DR JERICA Fonseca Consulting Unavailable AICHHOLZ, ADOBE ARCHITECT KAMILLA Admitting Unavailable AICHHOLZ, ADOBE ARCHITECT KAMILLA Attending Unavailable AICHHOLZ, ADOBE ARCHITECT KAMILLA Consulting Unavailable AICHHOLZ, ADOBE ARCHITECT KAMILLA Primary Care Unavailable FAWWAD, STEELE H Admitting Unavailable FAWWAD, STEELE H Attending Unavailable FAWWAD, STEELE H Consulting Unavailable AICHHOLZ, ADOBE ARCHITECT KAMILLA Primary Care Unavailable KRUEGER ., DR MICHEL Attending Unavailable KRUEGER ., DR MICHEL Consulting Unavailable AICHHOLZ, ADOBE ARCHITECT KAMILLA Primary Care Unavailable KRUEGER ., DR MICHEL Admitting Unavailable ZIEBER, DR JERICA Fonseca Consulting Unavailable AICHHOLZ, ADOBE ARCHITECT KAMILLA Primary Care Unavailable AICHHOLZ, ADOBE ARCHITECT KAMILLA Admitting Unavailable AICHHOLZ, ADOBE ARCHITECT KAMILLA Attending Unavailable AICHHOLZ, ADOBE ARCHITECT KAMILLA Consulting Unavailable KRUEGER ., DR MICHEL Admitting Unavailable KRUEGER ., DR MICHEL Consulting Unavailable AICHHOLZ, ADOBE ARCHITECT KAMILLA Primary Care Unavailable KRUEGER ., DR MICHEL Attending Unavailable WEST, DR LUIS M Bustos Consulting Unavailable AICHHOLZ, ADOBE ARCHITECT KAMILLA Primary Care Unavailable WEST, DR LUIS M Bustos Consulting Unavailable AICHHOLZ, ADOBE ARCHITECT KAMILLA Admitting Unavailable AICHHOLZ, ADOBE ARCHITECT KAMILLA Attending Unavailable AICHHOLZ, ADOBE ARCHITECT KAMILLA Consulting Unavailable KRUEGER ., DR MICHEL Consulting Unavailable AICHHOLZ, ADOBE ARCHITECT KAMILLA Primary Care Unavailable KRUEGER ., DR MICHEL Admitting Unavailable KRUEGER ., DR MICHEL Attending Unavailable NO FAMILY, PHYSICIAN Primary Care Provider Unava ilkristin Blackwell MD Imshawn Attending Provider Aichholz, Kamilla J Primary Care Provider TARIQ BARRIOSN R Referring Unavailable SOPHIE, ISABELLE R Primary Care Unavailable Aichholz METALWORKING INSTRUCTOR, Kamilla Unavailable Nishant Aguilar MD Primary Care Provider [phone] Aichholz, Kamilla Unavailable Unavailable Aichholz METALWORKING INSTRUCTOR, Kamilla Unavailable Nishant Aguilar MD Primary Care Provider Jerica Zhu MD Unavailable Jerica Zhu MD Unavailable Unavailable Lina Tobin Unavailable Jerica Zhu MD Unavailable LINA CONNER Attending Unavailable AICHHOLZ, KAMILLA Attending Unavailable MOHSEN PACE Attending Unavailable AICHHOLZ, KAMILLA Attending Unavailable AICHHOLZ, KAMILLA Attending Unavailable AICHHOLZ, KAMILLA Attending Unavailable Aichholz, Kamilla J Primary Care Provider Katty Jackson APRN Emergency Provider [phone] Choujaa DO, Nidal N Emergency Provider [phone] Agnes Mcclain APRN Attending Provider Kamilla Patton Primary Care Unavailable Katty Jackson Admitting Unavailable Katty Jackson M Attending Unavailable Kamilla Patton Primary Care Unavailable Choujaa, Nidal N Admitting Unavailable Chosheelaa, Nidal N Attending Unavailable Sena Carias Attending Unavailable Sena Carias Attending Unavailable Abdi METALWORKING INSTRUCTOR-CKamilla Primary Care Provider Abdi METALWORKING INSTRUCTOR-CKamilla Attending Provider LUIS M MACHUCA Attending Unavailable Aichholz SHEET METAL ERECTOR-ADOBE ARCHITECT, Kamilla Grubbs Primary Care Unava ilable Jennifer FU, Chidi Patten Attending Unavail able Ligia SHEET METAL ERECTOR-ADOBE ARCHITECT, Shelley Mcleod Attending Unav ailable [facility] SHEET METAL ERECTOR-ADOBE ARCHITECT, Kamilla Grubbs Primary Care Unava ilable Ligia SHEET METAL ERECTOR-ADOBE ARCHITECT, Shelley Mcleod Attending Unav ailable [facility] SHEET METAL ERECTOR-ADOBE ARCHITECT, Kamilla Grubbs Primary Care Unava ilable Allergies Allergy ClassificationReported Allergen(s)Allergy TypeDate of OnsetReaction(s) Facility (20 sources)Penicillins; Translations: [PENICILLINS]Allergy to substance 78-08-6210GcmvfZwxhxugsdOhio State [facility] (6 sources)Penicillin; Translations: [penicillin]Drug AllergyUnknownExecutive [facility]rology [facility] Medications Current Medications MedicationDrug Class(es)DatesSig (Normalized)Sig (Original)Acidophilus Probiotic Blend (4 sources)Start: 07-35-0253Frwhcgcsnks Probiotic Blend Oral, Daily, Refill(s) 0 Start Date: 06/22/22 Status: Orderedamitriptyline hydrochloride 50 mg oral tablet (20 sources)Tricyclic AntidepressantStart: 04-30-2023 End: 77-46-4560nzwy 1 tablet by mouth at bedtimeamitriptyline (Elavil) 50 MG tablet Indications: Trigeminal neuralgia Take 1 tablet (50 mg) by mouth at bedtime 90 tablet 3 06/06/2024 06/06/2025 ActiveStart: 95-46-7785noxw 2 tablets by mouth once dailyAmitriptyline 25 mg Tablet Active 50 MG PO Daily September 28, 2022 12:00am Complies with drug therapyStart: 26-25-1099aiqv 1 tablet by mouth once dailyStart: 08-15-2021 End: 09-30-0768cghq 1 tablet by mouth once dailyAmitriptyline 10 mg tablet Discontinued 10 MG PO Daily August 15, 2021 12:00am September 28, 2022 1:19pm Ascorbic Acid (4 sources)Vitamin CStart: 79-38-3127Jqftubg C Daily, Refills(s) 0 Start Date: 06/22/22 Status: Orderedbaclofen 10 mg oral tablet (1 source)gamma-Aminobutyric Acid-ergic AgonistStart: 67-86-4564yulk 0.5-1 tablets by mouth every eight hours as neededBaclofen 10 mg tablet Active 10 MG PO Three times daily 90 October 17, 2024 12:00am Take 1/2-1 tab every 8 hours as needed Complies with drug therapyCranberry preparation (4 sources)Non-Standardized Food Allergenic Extract, Non-Standardized Plant Allergenic ExtractStart: 02-03-2990Zrefhbzes Refill(s) 0 Start Date: 06/22/22 Status: Orderedesomeprazole 40 mg delayed release oral capsule (1 source)Proton Pump InhibitorStart: 05-23-2972tblg 1 capsule by mouth twice daily before breakfastesomeprazole (NEXIUM) 40 mg capsule Take 1 capsule by mouth two times a day before meals. Take 30 min before breakfast and dinner 180 capsule 3 10/22/2023 ActiveMaca Root (1 source)Start: 89-52-3890Cnuh Root Cornel Root Start Date: 01/18/24 Status: OrderedMelatonin (4 sources)Start: 92-72-7890Mbzdnqmrn Once a day (at bedtime), Refills(s) 0 Start Date: 06/22/22 Status: OrderedMultivitamin preparation (4 sources)Start: 89-85-5720txedgzbpxnrd Daily, Refill(s) 0 Start Date: 06/22/22 Status: OrderedOmega-3 oral capsule (4 sources)Start: 62-93-1176Nveen-3 oral capsule Refill(s) 0 Start Date: 06/22/22 Status: OrderedpredniSONE 20 mg oral tablet (1 source)Start: 56-40-4675yzth 2 tablets by mouth once dailyterbinafine 250 mg oral tablet (2 sources)Allylamine AntifungalStart: 74-46-4380zhhpcwquyts 250 mg Tab Refills(s) 0 Start Date: 12/28/22 Status: OrderedtraZODone hydrochloride 50 mg oral tablet (1 source)Serotonin Reuptake InhibitorStart: 02-17-5144ypqSJYELR 50 mg Tab Refills(s) 0 Start Date: 06/22/22 Status: OrderedViactiv Soft Calcium Chews (4 sources)Start: 76-08-9655Yscwtre Soft Calcium Chews Refill(s) 0 Start Date: 06/22/22 Status: OrderedVonoprazan (3 sources)Start: 50-79-5775lrlv 1 tablet by mouth once dailyVonoprazan (Voquezna) 20 mg tablet Active 20 MG PO Daily October 14, 2024 12:00am Complies with drug therapyVonoprazan Fumarate (Voquezna) 20 MG tablet (3 sources)take 1 tablet by mouth once dailyVonoprazan Fumarate (Voquezna) 20 MG tablet Take 20 mg by mouth Daily Activezonisamide 25 mg oral capsule (20 sources)Anti-epileptic AgentStart: 07-27-2023 End: 60-88-1378rpwc 1 capsule by mouth in the morningzonisamide (Zonegran) 50 MG capsule Indications: Trigeminal neuralgia Take 1 capsule (50 mg) by mouth in the morning and 1 capsule (50 mg) before bedtime. 180 capsule 3 06/06/2024 06/06/2025 ActiveStart: 78-11-8052uduo 1 capsule by mouth in the morning zonisamide (Zonegran) 50 MG capsule Take 50 mg by mouth in the morning and 50 mg before bedtime. 0 12/12/2022 ActiveStart: 09-28-2022 End: 16-63-1372jdoq 1 capsule by mouth twice dailyZonisamide 25 mg capsule Active 25 MG PO Twice daily October 17, 2024 12:00am Complies with drug therapy Start: 69-62-9093hhwm 50 mg by mouth twice dailyZonisamide Active 50 MG PO Twice daily September 28, 2022 12:00am Completed/Discontinued Medications MedicationDrug Class(es)DatesSig (Normalized)Sig (Original)acetaminophen 325 mg / HYDROcodone bitartrate 5 mg oral tablet (5 sources)Opioid AgonistStart: 10-14-2024 End: 24-60-4749chuk 1 tablet by mouth every six hours as neededHydrocodone- Acetaminophen 5-325 mg tablet Discontinued 1 TAB PO Every 6 hours as needed October 12:00am December 01, 2024 5:29pmclindamycin 300 mg oral capsule (5 sources)Lincosamide AntibacterialStart: 10-14-2024 End: 62-85-2729azqj 1 capsule by mouth three times dailyClindamycin Hcl 300 mg capsule Discontinued 300 MG PO Three times daily October 17, 2024 12:00am Sep tember 2024 5:29pmfamotidine 20 mg oral tablet (12 sources)Histamine-2 Receptor AntagonistStart: 07-07-2023 End: 45-62-3357jrdb 1 tablet by mouth once daily at bedtimeFamotidine 20 mg tablet Discontinued 20 MG PO Daily at bedtime July 07, 2023 12:00am October 14, 2024 1:00pmStart: 45-02-9877epoqmcbguh 20 mg Tab Refills(s) 0 Start Date: 12/28/22 Status: Orderedketorolac tromethamine 10 mg oral tablet (6 sources)Nonsteroidal Anti-inflammatory Drug, Cyclooxygenase InhibitorStart: 10-12-2024 End: 58-32-7710rjsj 1 tablet by mouth twice daily as neededKetorolac 10 mg tablet Discontinued 10 MG PO Twice daily as needed October 17, 2024 12:00am December 01, 2024 5:29pm maximum total duration of 5 days from all oral, intranasal, or parenteral formulationspantoprazole 40 mg delayed release oral tablet (20 sources)Proton Pump InhibitorStart: 09-28-2022 End: 67-63-8692lrph 1 tablet by mouth twice dailyPantoprazole 20 mg Tablet,Delayed Release (Dr/Ec) Discontinued 20 MG PO Twice daily September 28, 2022 12:00am July 07, 2023 1:56pmStart: 06-22-2022 End: 47-98-0912zisc 1 tablet by mouth twice dailyPantoprazole 40 mg tablet,delayed release (DR/EC) Discontinued 40 MG PO Twice daily 60 July 07, 2023 12:00am October 14, 2024 1:00pmStart: 08-15-2021 End: 08-63-8494xjzv 1 tablet by mouth once dailyPantoprazole 40 mg tablet,delayed release (DR/EC) Discontinued 40 MG PO Daily August 15, 2021 12:00am September 28, 2022 1:20pm Problems Active Problems Problem ClassificationProblemDateDocumented DateEpisodic/ChronicAbdominal pain (9 sources)Left flank pain; Translations: [Unspecified abdominal pain]Onset: 978282-77-5017NkqrnvwiTwutat (5 sources)Asthma; Translations: [Unspecified asthma, uncomplicated]Onset: 997568-65-4606JjbzowtBnkhjse tract disease (4 sources)Oumhkabop42-00-4717FnndicnwBudbolcs of urinary tract (11 sources)Kidney stone; Translations: [Calculus of kidney]Onset: 07-29-2022 61-87-6757TwznibzzCziruire of mouth; excluding dental (3 sources)Sialoadenitis of the submandibular gland; Translations: [Sialoadenitis, unspecified]40-90-0938XtdhfytoTooctjohlq disorders (20 sources)Gastroesophageal reflux disease; Translations: [Gastro-esophageal reflux disease without esophagitis]Onset: 474219-80-3464IkpsbbtLuqxanp on above:Problem List clean-up per request of Phys. EHR CmteHeadache; including migraine (20 sources)Migraine without aura, not refractory ; Translations: [Migraine without aura, not intractable, without status migrainosus]Onset: 11-04-2023 92-32-7804OuqovdjEghipif on above:Problem List clean-up per request of Phys. EHR CmteHeadache; including migraine (1 source)Headache; including migraine; Translations: [Headache, unspecified] Onset: 94-82-2186Swmnisd (2 sources)Onychomycosis; Translations: [Tinea unguium]81-33-5287Illjmypb Nonspecific chest pain (20 sources)Chest pain, unspecified; Translations: [Chest pain]Onset: 07-12-2022 55-93-7725PingwyinPnpgucikbowvlq (5 sources)Arthritis; Translations: [Unspecified osteoarthritis, unspecified site]Onset: 810512-62-8681YfwwsixLbime connective tissue disease (1 source)Pain in unspecified lower leg; Translations: [PAIN IN UNSPECIFIED LOWER LEG]Onset: 89-74-9128UvlvxtjdXbbci connective tissue disease (2 sources)Pain of toes of bilateral feet; Translations: [Pain in right toe(s)] 44-48-9214NedgvqulLkibb nervous system disorders (4 sources)Paresthesia of skin; Translations: [PARESTHESIA OF SKIN]Onset: 70-77-2772UhasgjzmDbkyv nervous system disorders (6 sources)Trigeminal neuralgia; Translations: [Trigeminal neuralgia]11-10-2023 EpisodicOther nervous system disorders (4 sources)Right trigeminal neuralgia; Translations: [Trigeminal neuralgia] 47-02-2206WxpgevfxKvaad nervous system disorders (1 source)Trigeminal neuralgia; Translations: [Trigeminal neuralgia]Onset: 68-08-2425UaapxjlwMiwxh nutritional; endocrine; and metabolic disorders (20 sources)Body mass index 30+ - obesity; Translations: [Body mass index (BMI) 32.0-32.9, adult]Onset: 03-18-2023 Resolved: 842108-14-6421QgvzzjfZgvkv nutritional; endocrine; and metabolic disorders (19 sources)Obesity caused by energy imbalance; Translations: [Morbid (severe) obesity due to excess calories]Onset: 501029-36-8944EhamhkrGaewe screening for suspected conditions (not mental disorders or infectious disease) (20 sources)Patient encounter status; Translations: [Encounter for screening for malignant neoplasm of colon]Onset: 863384-02-5127LtiucyakLiscjpm on above:Problem List clean-up per request of Phys. EHR CmteOther skin disorders (2 sources)Dystrophia unguium; Translations: [Nail dystrophy]49-47-6045Fqcieoax Pulmonary heart disease (20 sources)Pulmonary hypertension; Translations: [Pulmonary hypertension, unspecified]Onset: 030126-09-5223IintabhWsnbrkow codes; unclassified (1 source)Idiopathic sleep related nonobstructive alveolar hypoventilation; Translations: [Idiopathic sleep related nonobstructive alveolar hypoventilation] Onset: 93-42-3663YtgzficUxvjgbmt codes; unclassified (20 sources)Hypoxia; Translations: [Idiopathic sleep related nonobstructive alveolar hypoventilation]Onset: 618024-74-5221GwdzxzbJdsemlka codes; unclassified (19 sources)Hypersomnia; Translations: [Hypersomnia, unspecified]Onset: 097902-32-3145RnjetzvYtrifyyk codes; unclassified (1 source)Family history of malignant neoplasm of breast; Translations: [FAMILY HX MALIG NEOPLASM OF BREAST]Onset: 83-45-2043NmbffugxQoxiwypl codes; unclassified (20 sources)Disturbance in sleep behavior; Translations: [Sleep disorder, unspecified]Onset: 133945-59-5449DoetciexKtoezrea codes; unclassified (1 source)Past history of procedure; Translations: [Other specified postprocedural states]80-70-0950VqpxovgaMbvqzpnbopna (3 sources)CONTACT W/AND (SUSP) EXPOS COVID-19; Translations: [CONTACT W/AND (SUSP) EXPOS COVID-19]Onset: 12-25-2021 Past or Other Problems Problem ClassificationProblemDateDocumented DateEpisodic/ChronicDiabetes mellitus without complication (9 sources)Hyperglycemia; Translations: [Hyperglycemia, unspecified]Onset: 662144-30-3532JobvdyzeChcrfzra; including migraine (2 sources)Headache; Translations: [Nonintractable headache, unspecified chronicity pattern, unspecified headache type]73-85-8124TppvsyxhLymky diseases of kidney and ureters (12 sources)Abnormal renal function; Translations: [Disorder of kidney and ureter, unspecified]Onset: 454241-82-1025KfjyejnkXufqx nervous system disorders (19 sources)Paresthesia; Translations: [Paresthesia of skin]Onset: 11-04-2023 56-69-6898OzzeffwzXibkb upper respiratory infections (1 source)Acute upper respiratory infection, unspecified; Translations: [ACUTE UP RESPIRATORY INFECTION UNS]Onset: 27-35-3707CflifzoyRlzbmkfgpn disorders (not diabetes) (20 sources)Pancreatitis; Translations: [Acute pancreatitis without necrosis or infection, unspecified]Onset: 09-26-2017 Resolved: 859847-33-4697AargcobtAhcwaigqohab (1 source)CONTACT W/AND (SUSP) EXPOS COVID-19; Translations: [CONTACT W/AND (SUSP) EXPOS COVID-19]Onset: 12-22-2021 Results Test NameValueInterpretationReference RangeFacilityGynecology Office/Clinic Note on 07-07-8179Vshqlqevmc Office/Clinic NoteChief Complaint 54 y/o , Annual Pap: HX of robotic TLH and BS. Mammogram: Jan 2024, normal. Colonoscopy: 2021 repeat every 10 years. BD: never Pt wondering if hip pain can be hormonal History of Present Illness Pelvic Pain: No Painful Sex: Yes Abnormal Vaginal Discharge: No Abnormal Vaginal Bleeding: No Vaginal Dryness: Yes Vaginal Itch: No Vaginal Burning: No Vaginal Odor: No Hot Flashes: Yes Night Sweats: Yes Breast Lump: No Breast Pain: No Sexually Active: Yes Pt. c/o menopausal symptoms worsening, HF no longer controlled with cornel. Knows someone on HRT and interested. She has begun having b/l hip aching and wondering if hormonal. Other symptoms include fatigue, new facial hair, dry skin, decreased libido, painful intercourse, urinary frequency. Her menopause symptom score is 38. She does report recent screening labs, does no think a TSH has been checked. She is interested in testosterone replacement therapy, will order testosterone level as well. She does live over an hour away- orders printed for labs, results will be faxed to the office. After review of labs will plan to start testosterone replacement and TD estrogen in addition to the vaginal estrogen cream she has been prescribed. STEEL ERECTOR Additional Details Menstrual History Reason for No Menstrual PeriodsHysterectomy Age of Twuiugdut73 Age Menses Xpwfoou14 Contraception Contraception TypeVasectomy Review of Systems Head Migraines: Yes Headaches: Yes Eyes Corrective Lenses: Contact lenses Blurred vision: None Ears, Nose, Throat Congestion: No Vertigo: No Sore throat: No Nasal drainage: No Cardio Respiratory Peripheral edema: No Heart Irregularity: No Chest Pain: No Shortness of Breath: No Gastrointestinal Bloating: No Reflux/heartburn: No Abdominal Pain: No Change in bowel habits: No Urinary Urinary Incontinence: No Urinary frequency: No Nocturia: No Urgency: No Painful urination: No Musculoskeletal Back Pain: No Muscle Aches: No Joint Pain: Yes Joint Pain comment: both hips Integumentary Lesions: No Moles: No Acne: No Hair changes: No PsychoSocial Sleep Problems: No Anxiety: No Suicidal Ideation: No Homicidal Ideation: No Depression: No Hematologic/Lymphatic Lymphadenopathy: No Thromboembolism: No Bruising: No Bleeding tendencies: No Endocrine Abnormal weight gain: No Abnormal weight loss: No Fatigue: No Physical Exam Vitals & Measurements BP: 122/70 HT: 166 cm WT: 91.2 kg WT: 91.2 kg (Dosing) BMI: 33.1 Additional Vitals No qualifying data available. General: Alert and oriented, no acute distress. Neck: Supple, non-tender, no thyromegaly. Lungs: Clear to auscultation, non-labored respiration. Heart: Normal rate, regular rhythm, no murmur, gallop or edema. Abdomen: Soft, non-tender, non-distended, no masses. Musculoskeletal: Normal range of motion and strength, no tenderness or swelling. Skin: Skin is warm, dry and pink, no rashes or lesions. Psychiatric: Cooperative, appropriate mood and affect. Breast exam: No masses, no tenderness, no skin changes or nipple discharge. External Genitalia: No urethral caruncle, no lesions, vulvar skin intact. Genitourinary: Normal vaginal mucosa, no lesions or abnormal discharge, cervix surgically absent. No cystocele or rectocele. Bimanual exam: No adnexal tenderness or masses, no myofascial tenderness. Assessment/Plan 1. Encounter for routine gynecological examination 1. Continue with breast self-exam 2. Maintain a low-fat, low sugar diet 3. Weight management, BMI, exercise (30 minutes daily) 4. Water intake (64 oz daily) and decrease caffeine 5. Calcium supplement with Vitamin D 6. TSH testosterone ordered. Will send these results with screening labs back to me. Once reviewed she would like to start TD estrogen and testosterone replacement therapy. 7. Discussed vaginal changes caused by estrogen loss known as vaginal atrophy. This can cause vaginal symptoms such as dryness, burning, and pain with intercourse. Urinary changes can also occur suchas urinary frequency, urgency and bladder infections. The primary indication for treatment of vaginal atrophy is the relief of bothersome symptoms. The first line therapy for symptoms of vaginal atrophy are the regular use of vaginal lubricants or moisturizing agents such as Replens, Coconut oil, olive oil, or other over the counter agents. If symptoms do not improve with vaginal lubricants then low dose vaginal estrogen is an option for those women who are candidates. Vaginal estrogen therapy should be used with caution in women at risk for some estrogen-dependent tumors. Patient is educatedthere are no penitentiary randomized trials evaluating the safety of low dose vaginal estrogen. Observational data had not shown any increased risk of breast cancer, endometrial cancer, coronary heart disease, stroke, or VTE. Side effects with vaginal estrogen may (more content not included)...[facility] 71-15-9500Falgdpapy Reminders From: Carin Almanzar To: EU - Administrative; Sent: 01/18/2024 15:56:07 EST Show up: 07/13/2024 15:56:00 EDT Subject: 1 yr f/u Due Date/Time: 01/13/2025 15:55:00 EDT Reminder/Recall Patient needs scheduled with AO for a 1 yr f/u with KUB Left VM asking PT to call back and get scheduled.[facility] CenterMLR HEMOGLOBIN A1Con 29-49-6191Kvskwev [Mass/Vol]103 mg/dLCooper County Memorial Hospital HbA1c (Bld) [Mass fraction]5.2 %4.5 - 6.2 %[facility] HospitalComment on above:ADA RECOMMENDED LIMIT 4.0 - 6.0 ADA THERAPEUTIC TARGET < 7.0 ACTION SUGGESTED > 7.0 CLINISYNCNOSaint John's Regional Health CenterAlanine aminotransferase [Enzymatic activity/volume] in Serum or PlasmaOrdered By: Rajinder Elliott on 73-78-0199DYE [Catalytic activity/Vol]23 U/L7-52[facility], BeachwoodComment on above: Performed By: #### CBC, ESR, CMP, CRP #### [facility] [address] [place] [address] USAAlbumin [Mass/volume] in Serum or Plasma by Bromocresol green (BCG) dye binding methoOrdered By: Rajinder Elliott on 99-94-2513Ffqolgs BCG dye [Mass/Vol]4.6 g/dL3.5-5.7FMercy Health Springfield Regional Medical CenterAlkaline phosphatase [Enzymatic activity/volume] in Serum or PlasmaOrdered By: Nidal Choujaa on 12-24-4081EKP [Catalytic activity/Vol]80 U/C47-626XfheoqlirSelect Medical [facility] Hospital, BeachwoodComment on above:Performed By: #### CBC, ESR, CMP, CRP #### [facility] [address] [place] [address] USAAspartate aminotransferase [Enzymatic activity/volume] in Serum or PlasmaOrdered By: Ceciliaal Lexi on 41-90-6013FXS [Catalytic activity/Vol]18 U/A62-04RaarmlqppSelect Medical [facility] Hospital, BeachwoodComment on above: Performed By: #### CBC, ESR, CMP, CRP #### [facility] [address] [place] [address] USABasophils [#/volume] in Blood by Automated countOrdered By: Rajinder Elliott on 55-59-2090Bxykunove (Bld) [#/Vol]0.0 10*3/uL0.0-0.2 Select [facility], BeachwoodComment on above:Performed By: #### CBC, ESR, CMP, CRP #### [facility] [address] [place] [address] USABasophils/100 leukocytes in Blood by Automated count Ordered By: Rajinder Elliott on 80-89-2482Kbqagjjkz/100 WBC (Bld)0.2 %.[facility], BeachwoodComment on above:Performed By: #### CBC, ESR, CMP, CRP #### [facility] [address] [place] [address] USABilirubin.total [Mass/volume] in Serum or PlasmaOrdered By: Nidal Chosheelaa on 14-54-7016Lbvwnfhsu [Mass/Vol]0.5 mg/dL0.3-1.0[facility], BeachwoodComment on above:Performed By: #### CBC, ESR, CMP, CRP #### [facility] [address] [place] [address] USAC reactive protein [Mass/volume] in Serum or PlasmaOrdered By: Rajinder Elliott on 94-35-2966KDH [Mass/Vol]6.5 mg/dLHigh0.0-0.5FMercy Health Springfield Regional Medical CenterC-Reactive Proteinon 70-57-5467O-Reactive Protein6.5 mg/dLHigh0.0-0.5The [facility] Physician GroupComment on above:Result Comment: PERFORMED BY: [place] [address] PATHOLOGIST DEPUTY HARBORMASTER HARSHAL REY M.D.Performed By: #### CBC, ESR, CMP, CRP #### [facility] [address] [place] [address] USACT soft tissue neck w conon 65-13-9758KC soft tissue neck w [facility] [address] [place], [place] [id number] CT Scan Report Signed Patient: Cinthia Badillo MR#: [id number] : 1970 Acct:[id number] Age/Sex: 54 / F ADM Date: 10/14/24 Loc: ER Room: Type: [facility] Attending Dr: Copies to: Rajinder Elliott DO [...] Gonzales M.D. 10/14/2024 4:15 PM Dictation Location: [place] [address] Transcribed By: [facility] 10/14/24 1615 Dictated By: Mike Gonzales II, MD 10/14/24 1607 Signed By: 10/14/24 1615[facility] Physician GroupCalcium [Mass/volume] in Serum or PlasmaOrdered By: Rajinder Elliott on 04-09-8646Nhtgwnj [Mass/Vol]9.7 mg/dL 8.6-10.3FMercy Health Springfield Regional Medical CenterComment on above:Performed By: #### CBC, ESR, CMP, CRP #### [facility] [address] [place] [address] USACarbon dioxide, total [Moles/volume] in Serum or Plasma Ordered By: Rajinder Elliott on 18-80-1428FY4 [Moles/Vol]24.4 mmol/L21.0-31.0 [facility], BeachwoodComment on above:Performed By: #### CBC, ESR, CMP, CRP #### [place] [address] USAChloride [Moles/volume] in Serum or PlasmaOrdered By: Rajinder Elliott on 41-41-1702Ovukujnh [Moles/Vol]107 mmol/K34-168ZoznckkbaSelect Medical [facility], BeachwoodComment on above:Performed By: #### CBC, ESR, CMP, CRP #### [place] [address] USAComplete Blood Count Auto Diffon 88-26-0165Olel Corpuscular HGB Conc33.6 g/rVUjvtsq68.0-35.0The [facility] Physician GroupComment on above:Performed By: #### CBC, ESR, CMP, CRP #### [place] [address] USAMonocytes/100 WBC (Bld)22.19 %High0.00-20.00[facility] Physician GroupComment on above:Result Comment: For adults in ED, MDW > 20.0 may be associated with a higher risk of sepsis during the first 12 hrs of hospital admissionPerformed By: #### CBC, ESR, CMP, CRP #### [place] [address] USANRBC%0.1 /100{WBC}Normal0-0.5[facility] Comment on above:Performed By: #### CBC, ESR, CMP, CRP #### [place] [address] USAWhite Blood Count12.1 [CFU]/mLHigh3.8-11.6[facility] Physician GroupComment on above:Performed By: #### CBC, ESR, CMP, CRP #### [place] [address] USAComprehensive Metabolic Panelon 02-84-1779Xaekiku [Mass/Vol]4.6 g/dLNormal3.5-5.7[facility] Physician GroupComment on above: Performed By: #### CBC, ESR, CMP, CRP #### [place] [address] USACreatinine Clr Calc Ysqkjnvk29.68NormalThe [facility], [facility] Physician [facility] Medical CenterComment on above:Performed By: #### CBC, ESR, CMP, CRP #### [facility] [address] [place] [address] USAGFR/1.73 sq M.predicted MDRD (S/P/Bld) [Vol rate/Area] 55.797 mL/min/{1.73_m2}NormalThe [facility], [facility] Physician GroupComment on above: Performed By: #### CBC, ESR, CMP, CRP #### [place] [address] USACreatinine [Mass/volume] in Serum or PlasmaOrdered By: Rajinder Elliott on 76-00-2009Guxjgxtlmg [Mass/Vol]1.17 mg/dL0.60-1.20[facility], BeachwoodComment on above:Performed By: #### CBC, ESR, CMP, CRP #### [facility] [address] [place] [address] USAEosinophils [#/volume] in Blood by Automated countOrdered By: Rajinder Elliott on 47-88-4555Afcmgypxtls (Bld) [#/Vol]0.0 10*3/uL0.0-0.45 [facility], BeachwoodComment on above:Performed By: #### CBC, ESR, CMP, CRP #### [facility] [address] [place] [address] USAEosinophils/100 leukocytes in Blood by Automated count Ordered By: Rajinder Elliott on 94-05-4671Vjiwcjjtnex/100 WBC (Bld)0.2 %.[facility], BeachwoodComment on above:Performed By: #### CBC, ESR, CMP, CRP #### [place] [address] USAErythrocyte Sedimentation Rateon 79-18-8563UCA (Bld) [Velocity]40 mm/hHigh0-29The [facility] Physician [facility] Medical CenterComment on above:Result Comment: PERFORMED BY: [place] [address] PATHOLOGIST DEPUTY HARBORMASTER HARSHAL REY M.D.Performed By: #### CBC, ESR, CMP, CRP #### [facility] [address] [place] [address] USAErythrocyte distribution width [Ratio] by Automated count Ordered By: Rajinder Elliott on 77-28-1921Clykmtosjel distribution width (RBC) [Ratio]13.8 %11.9-15.3FMercy Health Springfield Regional Medical CenterComment on above: Performed By: #### CBC, ESR, CMP, CRP #### [facility] [address] [place] [id number] USAErythrocyte sedimentation rate by Photometric method Ordered By: Rajinder Elliott on 58-80-4180SPT Photometric method (Bld) [Velocity]40 mm/hrHigh0-29[facility], BeachwoodErythrocytes [#/volume] in Blood by Automated countOrdered By: Rajinder Elliott on 18-08-2602QKB (Bld) [#/Vol]5.18 10*6/uLHigh3.60-5.00[facility], BeachwoodComment on above:Performed By: #### CBC, ESR, CMP, CRP #### [place] [id number] USAGlucose [Mass/volume] in Serum or PlasmaOrdered By: Rajinder Elliott on 18-58-3182Zgvklrr [Mass/Vol]103 mg/gTPaqt98-972CitkjkucrSelect Medical [facility], BeachwoodComment on above:ADA recommended reference rangeRandom Glucose Reference Range is dependent on time and content of last meal. Glucose of more than 200 mg/dL in a nonstressed, ambulatory subject supports the diagnosisof Diabetes Mellitus.Result Comment: Random Glucose Reference Range is dependent on time and content of last meal. Glucose of more than 200 mg/dL in a nonstressed, ambulatory subject supports the diagnosis of Diabetes Mellitus. ADA recommended reference rangePerformed By: #### CBC, ESR, CMP, CRP #### [facility] [address] [place] [id number] USAHematocrit [Volume Fraction] of Blood by Automated count Ordered By: Rajinder Elliott on 41-73-8562Jmnvuqokdh (Bld) [Volume fraction]44.6 % 34.0-46.4FMercy Health Springfield Regional Medical CenterComment on above:Performed By: #### CBC, ESR, CMP, CRP #### [facility] [address] [place] [address] USAHemoglobin [Mass/volume] in BloodOrdered By: Rajinder Elliott on 62-35-0960Coflpcyian (Bld) [Mass/Vol]15.0 g/dL11.8-15.4FMercy Health Springfield Regional Medical CenterComment on above:Performed By: #### CBC, ESR, CMP, CRP #### [facility] [address] [place] [address] USALeukocytes [#/volume] corrected for nucleated erythrocytes in Blood by Automated counOrdered By: Rajinder Elliott on 86-98-5748AVV corrected for nucl RBC Auto (Bld) [#/Vol]12.1 10*3/uLHigh3.8-11.6FMercy Health Springfield Regional Medical CenterLeukocytes [#/volume] in Blood by Automated countOrdered By: Rajinder Elliott on 19-54-3497GQT (Bld) [#/Vol]12.1 10*3/uLHigh3.8-11.6FMercy Health Springfield Regional Medical CenterComment on above:Performed By: #### CBC, ESR, CMP, CRP #### [facility] [address] [place] [address] USALymphocytes [#/volume] in Blood by Automated countOrdered By: Rajinder Elliott on 89-59-1922Hupxslfyfks (Bld) [#/Vol]1.5 10*3/uL1.00-4.8 [facility], BeachwoodComment on above:Performed By: #### CBC, ESR, CMP, CRP #### [facility] [address] [place], [place] [id number] USALymphocytes/100 leukocytes in Blood by Automated count Ordered By: Rajinder Elliott on 32-22-6184Rudurthgucy/100 WBC (Bld)12.4 %.[facility] Medical CenterComment on above:Performed By: #### CBC, ESR, CMP, CRP #### [facility] [address] [Entitic mass] by Automated countOrdered By: Rajinder Elliott on 46-50-3319IIO (RBC) [Entitic mass]29.0 pg24.7-34.3FMercy Health Springfield Regional Medical CenterComment on above:Performed By: #### CBC, ESR, CMP, CRP #### [facility] [address] Auto (RBC) [Mass/Vol]Ordered By: Rajinder Elliott on 72-53-2230WKDR (RBC) [Mass/Vol]33.6 g/dL32.0-35.0[facility], BeachwoodMCV [Entitic volume] by Automated countOrdered By: Rajinder Elliott on 83-85-2433YYU (RBC) [Entitic vol]86.1 vG24-100NngopdbxbSelect Medical [facility], [place] Comment on above:Performed By: #### CBC, ESR, CMP, CRP #### [facility] [address] [place] [address] USAMonocyte distribution width [Entitic volume] in Blood by AutomatedOrdered By: Rajinder Elliott on 65-71-6970Hxndepdd distribution width Auto (Bld) [Entitic vol]22.19 %High0.00-20.00[facility], BeachwoodComment on above:For adults in ED, MDW > 20.0 may be associated with a higher risk of sepsis during the first 12 hrs of hospital admissionMonocytes [#/volume] in Blood by Automated countOrdered By: Rajinder Elliott on 44-72-2084Xorzlzeev (Bld) [#/Vol]0.7 10*3/uL0.0-0.8[facility], BeachwoodComment on above: Performed By: #### CBC, ESR, CMP, CRP #### [facility] [address] [place] [address] USAMonocytes/100 leukocytes in Blood by Automated count Ordered By: Rajinder Elliott on 34-59-0587Lfqkboliq/100 WBC (Bld)6.0 %.[facility], BeachwoodComment on above:Performed By: #### CBC, ESR, CMP, CRP #### [facility] [address] [place] [address] USANeutrophils [#/volume] in Blood by Automated countOrdered By: Rajinder Elliott on 04-27-3307Fwakdbnxgxq (Bld) [#/Vol]9.8 10*3/uLHigh1.8-7.7 [facility], BeachwoodComment on above:Performed By: #### CBC, ESR, CMP, CRP #### [facility] [address] [place] [address] USANeutrophils/100 leukocytes in Blood by Automated count Ordered By: Rajinder Elliott on 77-93-1080Gqbubdsymmy/100 WBC (Bld)81.2 %.[facility], BeachwoodComment on above:Performed By: #### CBC, ESR, CMP, CRP #### [facility] [address] [place] [address] USANo Panel InformationOrdered By: Rajinder Elliott on 56-52-0571Nbotdeewm GFR (CKD-EPI)55.797 mL/MinSelect Medical [facility], [place] Pharmacy Creatinine Clearance (Chem62.68[facility] [place] Nucleated erythrocytes [Presence] in Blood by Automated countOrdered By: Rajinder Elliott on 52-37-7398Wqgnocshu RBC Auto Ql (Bld)0.1 /100{WBC}0-0.5FMercy Health Springfield Regional Medical CenterPlatelet mean volume [Entitic volume] in Blood by Automated countOrdered By: Rajinder Elliott on 30-30-9233Hpkqfkzh mean volume (Bld) [Entitic vol]8.6 fL6.3-10.7FMercy Health Springfield Regional Medical CenterComment on above: Performed By: #### CBC, ESR, CMP, CRP #### [facility] [address] [place] [address] USAPlatelets [#/volume] in Blood by Automated countOrdered By: Rajinder Elliott on 12-40-4439Bmduwupfq (Bld) [#/Vol]256 10*3/vM985-905 [facility], BeachwoodComment on above:Performed By: #### CBC, ESR, CMP, CRP #### [facility] [address] [place] [address] USAPotassium [Moles/volume] in Serum or PlasmaOrdered By: Rajinder Elliott on 96-54-1791Ioprlgrgm [Moles/Vol]4.1 mmol/L3.5-5.1FMercy Health Springfield Regional Medical CenterComment on above:Performed By: #### CBC, ESR, CMP, CRP #### [facility] [address] [place] [address] USAProtein [Mass/volume] in Serum or PlasmaOrdered By: Nidal Chosheelaa on 96-53-5704Xvirdpi [Mass/Vol]8.3 g/dL6.4-8.9[facility], BeachwoodComment on above:Performed By: #### CBC, ESR, CMP, CRP #### [facility] [address] [place] [address] USASerum globulin measurement by calculation (mass/volume) Ordered By: Rajinder Elliott on 63-47-0640Wenyknso (S) [Mass/Vol]3.7 g/dLSelect Medical [facility] Hospital, BeachwoodComment on above:Performed By: #### CBC, ESR, CMP, CRP #### [facility] [address] [place] [address] USASerum or plasma albumin/globulin mass ratioOrdered By: Rajinder Elliott on 52-19-2575Omvgexd/Globulin [Mass ratio]1.2 {ratio}[facility], BeachwoodComment on above:Performed By: #### CBC, ESR, CMP, CRP #### [facility] [address] [place] [address] USASerum or plasma anion gap determinationOrdered By: Nidal Chosheelaa on 49-27-9572Ivacn gap [Moles/Vol]11.7 mmol/L6.0-15.0[facility], BeachwoodComment on above:Performed By: #### CBC, ESR, CMP, CRP #### [facility] [address] [place] [address] USASodium [Moles/volume] in Serum or PlasmaOrdered By: Nidal Chosheelaa on 99-66-1722Wzlcky [Moles/Vol]139 mmol/R245-230KgrvejyznSelect Medical [facility], BeachwoodComment on above:Performed By: #### CBC, ESR, CMP, CRP #### [facility] [address] [place] [address] USAUrea nitrogen [Mass/volume] in Serum or PlasmaOrdered By: Nidal Choujaa on 09-27-7458Npqd nitrogen [Mass/Vol]20 mg/dL7-25[facility], BeachwoodComment on above:Performed By: #### CBC, ESR, CMP, CRP #### [place] [address] USABasic Metabolic Panelon 25-66-8205Wiakixwhed Clr Calc Uxtbsjrt19.66[facility] Physician GroupComment on above:Performed By: #### CBC, CRP, ESR, BMP #### [place] [address] USAGFR/1.73 sq M.predicted MDRD (S/P/Bld) [Vol rate/Area] mL/min/{1.73_m2}NormalThe [facility]ly [facility] Physician [facility] CenterComment on above:Performed By: #### CBC, CRP, ESR, BMP #### [place] [address] USABasophils [#/volume] in Blood by Automated countOrdered By: Katty Jackson on 79-27-9504Djnyiponq (Bld) [#/Vol]0.1 10*3/uL0.0-0.2FMercy Health Springfield Regional Medical CenterComment on above:Performed By: #### CBC, CRP, ESR, BMP #### [place] [address] USABasophils/100 leukocytes in Blood by Automated count Ordered By: Katty Jackson on 37-41-7679Qtgxmwgxn/100 WBC (Bld)0.9 %.[facility], BeachwoodComment on above:Performed By: #### CBC, CRP, ESR, BMP #### [facility] [address] [place] [id number] USAC reactive protein [Mass/volume] in Serum or PlasmaOrdered By: Kattyjaquan Kentb on 39-28-7957AMK [Mass/Vol]< 0.5 mg/dL0.0-0.5FMercy Health Springfield Regional Medical CenterC-Reactive Proteinon 93-86-5413LEC [Mass/Vol]mg/LNormal0.0-0.5[facility] Physician GroupComment on above:Result Comment: PERFORMED BY: [place] [address] PATHOLOGIST DEPUTY HARBORMASTER HARSHAL REY M.D.Performed By: #### CBC, CRP, ESR, BMP #### [place] [address] USACalcium [Mass/volume] in Serum or PlasmaOrdered By: Kattyjaquan Kentb on 84-26-5448Ztgxshi [Mass/Vol]9.3 mg/dL8.6-10.3FMercy Health Springfield Regional Medical CenterComment on above:Performed By: #### CBC, CRP, ESR, BMP #### [facility] [address] [place] [address] USACarbon dioxide, total [Moles/volume] in Serum or Plasma Ordered By: Kattyjaquan Kentb on 77-85-2436GS1 [Moles/Vol]24.5 mmol/L21.0-31.0 [facility], BeachwoodComment on above:Performed By: #### CBC, CRP, ESR, BMP #### [facility] [address] [place] [address] USAChloride [Moles/volume] in Serum or PlasmaOrdered By: Kattyjaquan Kentb on 83-08-6524Rcwdfiid [Moles/Vol]108 mmol/UEugh41-915WvimsiecbSelect Medical [facility], BeachwoodComment on above:Performed By: #### CBC, CRP, ESR, BMP #### [facility] [address] [place], [place] [address] USAComplete Blood Count Auto Diffon 32-72-4668Jrbx Corpuscular HGB Conc33.1 g/yVSccbvb35.0-35.0[facility] Physician GroupComment on above:Performed By: #### CBC, CRP, ESR, BMP #### [facility] [address] [place] [address] USAMonocytes/100 WBC (Bld)18.78 %Normal0.00-20.00[facility] Physician [facility] Medical CenterComment on above:Performed By: #### CBC, CRP, ESR, BMP #### [facility] [address] [place] [address] USANRBC%0.1 /100{WBC}Normal0-0.5[facility] Comment on above:Performed By: #### CBC, CRP, ESR, BMP #### [facility] [address] [place] [address] USAWhite Blood Count7.7 [CFU]/mLNormal3.8-11.6[facility] Physician [facility] Medical CenterComment on above:Performed By: #### CBC, CRP, ESR, BMP #### [place] [address] USACreatinine [Mass/volume] in Serum or PlasmaOrdered By: Katty Manuel on 93-84-2336Sinilhuzus [Mass/Vol]1.09 mg/dL0.60-1.20[facility], BeachwoodComment on above:Performed By: #### CBC, CRP, ESR, BMP #### [place] [address] USAEosinophils [#/volume] in Blood by Automated countOrdered By: Katty Manuel on 93-94-9724Nkjkyhbxclo (Bld) [#/Vol]0.1 10*3/uL0.0-0.45 [facility], BeachwoodComment on above:Performed By: #### CBC, CRP, ESR, BMP #### [place] [address] USAEosinophils/100 leukocytes in Blood by Automated count Ordered By: Katty Manuel on 26-80-9985Qdesyemakjb/100 WBC (Bld)1.8 %.[facility], BeachwoodComment on above:Performed By: #### CBC, CRP, ESR, BMP #### [facility] [address] [place] [id number] USAErythrocyte Sedimentation Rateon 22-53-7372PTK (Bld) [Velocity]23 mm/hNormal0-29[facility] Physician GroupComment on above:Result Comment: PERFORMED BY: [place] [address] PATHOLOGIST DEPUTY HARBORMASTER HARSHAL REY M.D.Performed By: #### CBC, CRP, ESR, BMP #### [place] [address] USAErythrocyte distribution width [Ratio] by Automated count Ordered By: Katty Jackson on 72-61-2277Zyggoiwsmes distribution width (RBC) [Ratio]13.6 %11.9-15.3FMercy Health Springfield Regional Medical CenterComment on above: Performed By: #### CBC, CRP, ESR, BMP #### [place] [address] USAErythrocyte sedimentation rate by Photometric method Ordered By: Katty Jackson on 61-12-5765DRH Photometric method (Bld) [Velocity]23 mm/hr0-29[facility], BeachwoodErythrocytes [#/volume] in Blood by Automated countOrdered By: Katty Jackson on 81-42-3911XMG (Bld) [#/Vol]5.15 10*6/uLHigh3.60-5.00[facility], BeachwoodComment on above:Performed By: #### CBC, CRP, ESR, BMP #### [place] [address] USAGlucose [Mass/volume] in Serum or PlasmaOrdered By: Katty Jackson on 44-51-0679Dyomskc [Mass/Vol]98 mg/vH65-002BmejyuzniSelect Medical [facility], BeachwoodComment on above:ADA recommended reference rangeRandom Glucose Reference Range is dependent on time and content of last meal. Glucose of more than 200 mg/dL in a nonstressed, ambulatory subject supports the diagnosisof Diabetes Mellitus.Result Comment: Random Glucose Reference Range is dependent on time and content of last meal. Glucose of more than 200 mg/dL in a nonstressed, ambulatory subject supports the diagnosis of Diabetes Mellitus. ADA recommended reference rangePerformed By: #### CBC, CRP, ESR, BMP #### [place] [address] USAHematocrit [Volume Fraction] of Blood by Automated count Ordered By: Katty Manuel on 02-84-2722Rpmtdmulms (Bld) [Volume fraction]44.4 % 34.0-46.4FMercy Health Springfield Regional Medical CenterComment on above:Performed By: #### CBC, CRP, ESR, BMP #### [place] [address] USAHemoglobin [Mass/volume] in BloodOrdered By: Katty Jackson on 84-86-5889Acmzaoddku (Bld) [Mass/Vol]14.7 g/dL11.8-15.4FMercy Health Springfield Regional Medical CenterComment on above:Performed By: #### CBC, CRP, ESR, BMP #### [place] [address] USALeukocytes [#/volume] corrected for nucleated erythrocytes in Blood by Automated counOrdered By: Katty Manuel on 70-93-3223ZRT corrected for nucl RBC Auto (Bld) [#/Vol]7.7 10*3/uL3.8-11.6FMercy Health Springfield Regional Medical CenterLeukocytes [#/volume] in Blood by Automated countOrdered By: Katty Manuel on 55-93-7407SEY (Bld) [#/Vol]7.7 10*3/uL3.8-11.6FMercy Health Springfield Regional Medical CenterComment on above:Performed By: #### CBC, CRP, ESR, BMP #### [place] [address] USALymphocytes [#/volume] in Blood by Automated countOrdered By: Katty Manuel on 62-05-0976Ckvaguylaax (Bld) [#/Vol]1.9 10*3/uL1.00-4.8 [facility], BeachwoodComment on above:Performed By: #### CBC, CRP, ESR, BMP #### [place] [id number] USALymphocytes/100 leukocytes in Blood by Automated count Ordered By: Katty Jackson on 36-24-9194Xwstozrtldr/100 WBC (Bld)24.2 %.[facility], BeachwoodComment on above:Performed By: #### CBC, CRP, ESR, BMP #### [facility] [address] [place] [address] [Entitic mass] by Automated countOrdered By: Katty Jackson on 46-86-4954NWR (RBC) [Entitic mass]28.5 pg24.7-34.3FMercy Health Springfield Regional Medical CenterComment on above:Performed By: #### CBC, CRP, ESR, BMP #### [facility] [address] [place], [place] [address]HC Auto (RBC) [Mass/Vol]Ordered By: Katty Jackson on 11-99-5704YAMC (RBC) [Mass/Vol]33.1 g/dL32.0-35.0[facility], BeachwoodMCV [Entitic volume] by Automated countOrdered By: Katty Jackson on 61-72-9554CXO (RBC) [Entitic vol]86.2 rS41-612HhkcliywwSelect Medical [facility], [place] Comment on above:Performed By: #### CBC, CRP, ESR, BMP #### [place] [address] USAMonocyte distribution width [Entitic volume] in Blood by AutomatedOrdered By: Katty Jackson on 66-95-9826Vlcfhvjb distribution width Auto (Bld) [Entitic vol]18.78 %0.00-20.00[facility], BeachwoodMonocytes [#/volume] in Blood by Automated countOrdered By: Katty Jackson on 10-12-2024 Monocytes (Bld) [#/Vol]0.4 10*3/uL0.0-0.8[facility] [place] Comment on above:Performed By: #### CBC, CRP, ESR, BMP #### [place] [address] USAMonocytes/100 leukocytes in Blood by Automated count Ordered By: Katty Jackson on 49-94-6715Ngddyavcd/100 WBC (Bld)5.3 %.[facility], BeachwoodComment on above:Performed By: #### CBC, CRP, ESR, BMP #### [facility] [address] [place] [address] USANeutrophils [#/volume] in Blood by Automated countOrdered By: Katty Jackson on 16-59-7433Nsxzecaxlkk (Bld) [#/Vol]5.2 10*3/uL1.8-7.7 [facility], BeachwoodComment on above:Performed By: #### CBC, CRP, ESR, BMP #### [facility] [address] [place] [address] USANeutrophils/100 leukocytes in Blood by Automated count Ordered By: Katty Jackson on 75-99-4555Vxaaehybnnm/100 WBC (Bld)67.8 %.[facility], BeachwoodComment on above:Performed By: #### CBC, CRP, ESR, BMP #### [facility] [address] [place] [address] USANo Panel InformationOrdered By: Katty Jackson on 10-12-2024 Estimated GFR (CKD-EPI)> 60.0 mL/MinSelect Medical [facility] Clinic [facility] Hospital, BeachwoodPharmacy Creatinine Clearance (Chem67.66[facility], BeachwoodNucleated erythrocytes [Presence] in Blood by Automated countOrdered By: Katty Jackson on 62-69-9888Khirjrkjg RBC Auto Ql (Bld)0.1 /100{WBC}0-0.5FMercy Health Springfield Regional Medical CenterPlatelet mean volume [Entitic volume] in Blood by Automated count Ordered By: Katty Jackson on 42-46-1452Rdblxgkn mean volume (Bld) [Entitic vol]8.3 fL6.3-10.7FMercy Health Springfield Regional Medical CenterComment on above:Performed By: #### CBC, CRP, ESR, BMP #### [facility] [address] [id number] USAPlatelets [#/volume] in Blood by Automated countOrdered By: Katty Jackson on 90-07-1036Hcyzpnfad (Bld) [#/Vol]272 10*3/dJ456-939VhopxhsekSelect Medical [facility] Clinic [facility] Hospital, BeachwoodComment on above:Performed By: #### CBC, CRP, ESR, BMP #### [facility] [address] [place] [address] USAPotassium [Moles/volume] in Serum or PlasmaOrdered By: Katty Manuel on 68-59-9955Dqzwerkfz [Moles/Vol]4.0 mmol/L3.5-5.1FMercy Health Springfield Regional Medical CenterComment on above:Performed By: #### CBC, CRP, ESR, BMP #### [facility] [address] [place] [address] USASerum or plasma anion gap determinationOrdered By: Katty Manuel on 13-83-1186Gdjyt gap [Moles/Vol]11.5 mmol/L6.0-15.0[facility], BeachwoodComment on above:Performed By: #### CBC, CRP, ESR, BMP #### [facility] [address] [place] [address] USASodium [Moles/volume] in Serum or PlasmaOrdered By: Katty Manuel on 41-91-8275Munqwu [Moles/Vol]140 mmol/P653-683BdmkhltroSelect Medical [facility] Hospital, BeachwoodComment on above:Performed By: #### CBC, CRP, ESR, BMP #### [facility] [address] [place] [address] USAUrea nitrogen [Mass/volume] in Serum or PlasmaOrdered By: Katty Manuel on 61-09-5591Mjcb nitrogen [Mass/Vol]20 mg/dL7-25[facility], BeachwoodComment on above:Performed By: #### CBC, CRP, ESR, BMP #### [facility] [address] [place] [address] USAALL CBC WITH AUTO DIFFon 41-64-8869TVGSJUCEU ABSOLUTE AUTO 0NOMS HealthcareBasophils/100 WBC (Bld)0.4 %0.2 - 2.0 %[facility] Eosinophils/100 WBC (Bld)2.7 %0.9 - 7.0 %NOMS HealthcareErythrocyte distribution width (RBC) [Ratio]13.6 %11.0 - 15.0 %NOMS HealthcareHematocrit (Bld) [Volume fraction]40.7 %36.0 - 48.0 %[facility] HospitalHemoglobin (Bld) [Mass/Vol]13.5 g/dL 12.0 - 16.0 g/dLCooper County Memorial HospitalIMMATURE GRANULOCYTES ABS AUTO0.02[facility] Immature granulocytes/100 WBC (Bld)0.3 %0.0 - 0.5 %[facility] HospitalInterpretation and review of laboratory resultsAbnormalNOVT HealthcareLYMPHOCYTES ABSOLUTE AUTO2.3NOMS HealthcareLymphocytes/100 WBC (Bld)30.6 %20.5 - 60.0 %[facility] HospitalMCH (RBC) [Entitic mass]28.8 pg26.7 - 34.0 pgCooper County Memorial HospitalMCHC (RBC) [Mass/Vol]33.2 g/dL29.9 - 35.2 g/dLCooper County Memorial HospitalMCV (RBC) [Entitic vol]87 fL 81.0 - 99.0 fLCooper County Memorial HospitalMONOCYTES ABSOLUTE AUTO0.4NOSaint John's Regional [facility] Center Monocytes/100 WBC (Bld)5.3 %1.7 - 12.0 %[facility] HospitalNEUTROPHILS ABSOLUTE AUTO 4.5NOMS HealthcareNeutrophils/100 WBC (Bld)60.7 %43.0 - 75.0 %[facility] Platelet mean volume (Bld) [Entitic vol]9.4 fLLow9.5 - 13.5 fLCooper County Memorial HospitalTBH EO #0.2NOMS HealthcareTBH [id number] [facility] HospitalTB RBC4.68NOMS [facility] HospitalTB WBC 7.4NOSaint John's Regional Health CenterCLINISYNCNOMS HealthcareAmbulatory Visit Summaryon 01-18-2024 Ambulatory Visit SummaryAmbulatory Visit Summary CINTHIA BADILLO :1970 Visit Date:01/18/2024 Ambulatory Visit Instructions Your Diagnosis Kidney stone Tests Performed XR Abdomen 1 View -- Results Pending -- Please visit your patient portal for your results or contact your primary care physician. Your Care Team Attending Physician - GENNA Carias APRN, Sena Ames Primary Care Physician - KAMILLA PATTON CNP This Is Your Medications List Non-Formulary Medication (Cornel Root) Contact prescribing physician if questions or concerns amitriptyline (amitriptyline 50 mg Tab) ascorbic acid (Vitamin C) cranberry (Cranberry) lactobacillus acidophilus (Acidophilus Probiotic Blend) melatonin (Melatonin) multivitamin multivitamin with minerals (Viactiv Soft Calcium Chews) omega-3 polyunsaturated fatty acids (Union-3 oral capsule) pantoprazole (Pantoprazole [address] [...] the Following Appointments Follow Up with Aretha SIMMONSN, PAINTER MAINTENANCE-C, Sena X, FAM, URL When: Medications What How Much When Instructions Unchanged Non-Formulary Medication (Cornel Root) Unchanged amitriptyline (amitriptyline 50 mg Tab) [...] or concerns Unchanged omega-3 polyunsaturated fatty acids (Union-3 oral capsule) Contact prescribing physician if questions [...] You may need t (more content not included)...NormalFisher Kennedy Krieger InstituteUrology Office/Clinic Noteon 30-28-9945Qkvllhc Office/Clinic NoteUrology Office/Clinic Note Chief Complaint 1yr f/u KUB [...] with voice recognition artificial intelligence software, specifically [employer], Clothia and or Pump Audio. Substitutions may have occurred due to the [...] 07/02/22 Stone analysis done 07/06/22 - CaOx [place] 80% & CaOx Dihy 20% KUB 07/29/22 - grossly stable Lt Nephrolithiasis S/p Cysto/L URS/L stone basket extraction 08/13/22 Stone Analysis 08/14/22 - CaOx [place] 90% & CaOx Dihy 10% KUB 12/26/22 - no stones noted. [1] KUB 01/15/2024 with possible tiny calcification projecting over inferior pole of the left kidney. Discussed imaging results with patient. She does endorse some intermittent, random left-sided pain which she admits was present prior to her original stone procedure. Discussed not likely urologic innature. Follow-up with PCP regarding this if symptoms [...] Urnls Dip Stick Auto w/o Microscopy POC [id number] Follow-up With When Contact Information Aretha SHARPE, EMY-C, Sena X, FAM, URL Additional Instructions: Patient Education Kidney Stones, Frii-fe-Ggiz Dietary Guidelines to Help Prevent Kidney Stones Problem List/Past Medical History Ongoing Arthritis Asthma Gallstones Gastroesophageal reflux disease Kidney stone Left flank pain Historical No qualifying data Procedure/Surgical History Rigid cystoscopy (08/13/2022), ESWL of kidney (07/02/2022), Cholecystectomy, Hysterectomy. Medications Acidophilus Probiotic Blend, Oral, Daily amitriptyline 50 mg Tab Cranberry Cornel Root Melatonin, Once a day (at bedtime) multivitamin, Daily Union-3 oral capsule Pantoprazole [address] Tab [...] Comments influenza, unspecified formulation 12/27/2022 Recorded SARSCoV2 mRNA(choslnyiw-iuik-alcgwp) vac 10/09/2021 Recorded SARS-CoV-2 (COVID-19) mRNA BNT-162b2 vax 02/13/2021 Recorded SARS-CoV-2 (COVID-19) mRNA BNT-162b2 vax 05/08/2020 Recorded 2022-06-22: TPV40 SARS-CoV-2 (COVID-19) mRNA BNT-162b2 vax 04/06/2020 Recorded 2022-06-22: TPV40 SARS-CoV-2 (COVID-19) mRNA BNT-162b2 vax 04/02/2020 Recorded 2022-06-22: TPV40 diphtheria/pertussis, acel/tetanus adult 07/17/2009 Recorded Lab Results Ambulatory Point of Car (more content not included)...[facility] Medical CenterComment on above:Result Comment: Electronically Signed By: GENNA Carias APRN, [place] X\.br\Date and Time Signed: 01/18/24 15:57 ESTAmmonium urate crystals detection in stone by infrared spectroscopyOrdered By: Anand Krueger on 07-34-8207Esdnoibd urate crystals Infrared spectroscopy Ql (Stone)N/A [facility], BeachwoodCalcium bilirubinate measurementOrdered By: Anand Krueger on 08-50-3384Prhvofp bilirubinate (Stone) [Mass fraction]N/A [facility], BeachwoodCalcium carbonate measurementOrdered By: Anand Krueger on 63-74-2974Hlwbrld carbonate (Stone) [Mass fraction]N/A [facility], BeachwoodCalcium hydrogen phosphate dihydrate/Total in StoneOrdered By: Anand Krueger on 42-98-6631Abksqhz hydrogen phosphate dihydrate (Stone) [Mass fraction]N/AFMercy Health Springfield Regional Medical CenterCalcium oxalate dihydrate crystals detection in stone by infrared spectroscopyOrdered By: Anand Krueger on 78-19-0005Wmgokrd oxalate dihydrate crystals Infrared spectroscopy Ql (Stone)10 %.[facility], BeachwoodCalcium oxalate monohydrate/Total in StoneOrdered By: Anand Krueger on 64-82-4481Fsuqsli oxalate monohydrate (Stone) [Mass fraction]90 %.[facility], BeachwoodCalcium phosphate measurementOrdered By: Anand Krueger on 08-13-2022 Calcium phosphate (Stone) [Mass fraction][facility] Calculus analysis interpretation in stoneOrdered By: Anand Krueger on 25-92-7614Qpvzugoa analysis [Interp][facility] HospitalCalculus analysis [Interp]See comment.[facility], BeachwoodComment on above: Calculus received wet. Wet calculi must be dried beforeanalysis, which delays reporting of results.Leaving calculiwet (such as water, saline, blood, urine) may lead tochanges in composition.Physician questions regarding Calculi Analysis contactOsawatomie State HospitalCo at: [phone].Calculi report will follow via computer, mail or courierdelivery.Calculus analysis with calculus photography interpretation in stoneOrdered By: Anand Krueger on 20-99-6534Vazlswvt analysis with calculus photography [Interp]See comment.[facility], BeachwoodComment on above:Photograph will follow under a separate coverCellular material measurement in stone by estimated (mass/mass)Ordered By: Anand Krueger on 08-13-2022 Cellular material Est (Stone) [Mass/Mass][facility] Cholesterol/Total in StoneOrdered By: Anand Krueger on 98-08-3100Ywrvthzdrvr (Stone) [Mass fraction][facility] HospitalComposition of stone Ordered By: Anand Krueger on 39-21-5458Oxdrwvhygqu Nom (Stone)See comment. [facility], BeachwoodComment on above:Percentage (Represents the % composition)Cystine measurementOrdered By: Anand Krueger on 58-23-8827Htdzdqz (Unsp spec) [Moles/Vol][facility] HospitalDetermination of color of calculusOrdered By: Anand Krueger on 03-84-2476Eypwb (Stone)Brown. [facility], BeachwoodHydroxyapatite [Energy Difference] in 24 hour UrineOrdered By: Anand Krueger on 48-16-1317Zvqwbafyzcxjoh (24H U) [Energy diff][facility] HospitalMeasurement of proportion of calculus composed of dried blood (mass/mass)Ordered By: Anand Krueger on 08-13-2022 Blood.dried (Stone) [Mass fraction][facility] Newberyite/Total in StoneOrdered By: Anand Krueger on 08-78-6025Hjoxbdyeey (Stone) [Mass fraction]N/[facility] HospitalNo Panel Information Ordered By: Anand Krueger on 97-41-7946Htmdo 2,8 DihydroxyadenineN/[facility] Centerton Analysis DisclaimerSee comment.[facility], BeachwoodComment on above:This test was developed and its performance characteristicsdetermined by [employer]. It has not been cleared or approvedby the Food and Drug Administration.Performed at: [facility] [employer] [id number] Director: Mike Valladares PhD, Phone: [phone] BilirubinateN/[facility] Centertone Calcium PalmitateN/A [facility]erton Calcium StearateN/[facility] Centertone Carbonate ApatiteN/[facility] Centertone Drug or MetaboliteN/[facility] Centertone Other ConstituentN/A [facility] Centertone XanthineN/[facility] Centerize [Entitic volume] of StoneOrdered By: Anand Krueger on 77-78-2133Uyzg (Stone) [Entitic vol]4x4 mm.[facility], BeachwoodComment on above: Multiple pieces received. Dimensions of the largest piecereported.Sodium urate crystals detection in stone by infrared spectroscopyOrdered By: Anand Krueger on 66-30-2283Gekkqc urate crystals Infrared spectroscopy Ql (Stone)N/[facility] Centerpecimen source subject [Type]Ordered By: Anand Krueger on 27-47-9847Hbhpqosw source subject NomSee comment.[facility], BeachwoodComment on above:Left KidneyTriamterene measurement in calculusOrdered By: Anand Krueger on 32-79-7701Ijaxirmiscz (Stone) [Mass fraction]NRegency Hospital Cleveland WestTriple phosphate/Total in StoneOrdered By: Anand Krueger on 03-96-4464Mhanvj phosphate (Stone) [Mass fraction][facility] HospitalUric acid dihydrate crystals detection in stone by infrared spectroscopyOrdered By: Anand Krueger on 88-27-0603Xwlgt dihydrate crystals Infrared spectroscopy Ql (Stone)N/[facility] HospitalCB AUTO DIFFon 04-44-6088CUQR #0.0 103/ulNormal0.0-0.1The [facility] Medical CenterComment on above:Performed By: #### PTT, PT #### [facility] [address] [place] [address] Dr. Judy RamirezBasophils/100 WBC (Bld)0.5 %Normal0.2-2.0The [facility] Comment on above:Performed By: #### PTT, PT #### [facility] [address] [place] [address] Dr. Judy Suarez #0.1 103/ulNormal0.0-0.7The [facility] Medical CenterComment on above: Performed By: #### PTT, PT #### [facility] [address] [place] [address] Dr. Judy Tapiaosinophils/100 WBC (Bld)1.6 %Normal0.9-7.0The [facility] Comment on above:Performed By: #### PTT, PT #### [facility] [address] [place] [address] Dr. Judy Tapiarythrocyte distribution width (RBC) [Ratio]12.8 %Aoccaz36.0-15.0 The [facility] CenterComment on above:Performed By: #### PTT, PT #### [facility] [address] [place] [address] Dr. Judy RamirezHematocrit (Bld) [Volume fraction]40.7 %Ikwkes84.0-48.0Wood County HospitalComment on above:Performed By: #### PTT, PT #### [facility] [address] [place] [address] Dr. Judy RamirezHemoglobin (Bld) [Mass/Vol]13.5 g/gPUvftnt86.0-16.0The [facility] CenterComment on above:Performed By: #### PTT, PT #### [facility] [address] [place] [address] Dr. Judy Durant #0.02 10e3/ulNormal0.00-0.03The [facility] Medical CenterComment on above:Performed By: #### PTT, PT #### [facility] [address] [place] [address] Dr. Judy Durant %0.3 %Normal0.0-0.5The [facility] CenterComment on above: Performed By: #### PTT, PT #### [facility] [address] [place] [address] Dr. Judy Baker #2.6 103/ulNormal1.2-3.8The [facility] CenterComment on above:Performed By: #### PTT, PT #### [facility] [address] [place] [address] Dr. Judy Mcmanushocytes/100 WBC (Bld)33.9 %Yjzovs67.5-60.0The [facility] CenterComment on above:Performed By: #### PTT, PT #### [facility] [address] [place] [address] Dr. Judy MoctezumaUAL DIFF REQNONormalThe [facility] Medical CenterComment on above: Performed By: #### PTT, PT #### [facility] [address] [place] [address] Dr. Judy Fry (RBC) [Entitic mass]28.5 rhBcvbez70.7-34.0The [facility] CenterComment on above:Performed By: #### PTT, PT #### [facility] [address] [place] [address] Dr. Judy Fry (RBC) [Mass/Vol]33.2 g/sHWgqhkz55.9-35.2The [facility] CenterComment on above:Performed By: #### PTT, PT #### [facility] [address] [place] [address] Dr. Judy Fry (RBC) [Entitic vol]86.0 xJObkgyr75.0-99.0The [facility] CenterComment on above:Performed By: #### PTT, PT #### [facility] [address] [place] [address] Dr. Judy Menendez #0.4 103/ulNormal0.3-0.8The [facility] CenterComment on above:Performed By: #### PTT, PT #### [facility] [address] [place] [address] Dr. Judy Wellsocytes/100 WBC (Bld)5.6 %Normal1.7-12.0The [facility] Comment on above:Performed By: #### PTT, PT #### [facility] [address] [place] [address] Dr. Judy Iglesias #4.4 103/ulNormal1.4-6.5The [facility] CenterComment on above:Performed By: #### PTT, PT #### [facility] [address] [place] [address] Dr. Judy Galeanoutrophils/100 WBC (Bld)58.1 %Sdpwdt86.0-75.0The [facility] CenterComment on above:Performed By: #### PTT, PT #### [facility] [address] [place] [address] Dr. Judy RamirezPlatelet mean volume (Bld) [Entitic vol]9.4 fLCritically low 9.5-13.5The [facility] County Hospitalment on above:Performed By: #### PTT, PT #### [facility] [address] [place] [address] Dr. Judy RamirezPLT285 103/qgObpdeb771-206Lxr [facility] CenterComment on above: Performed By: #### PTT, PT #### [facility] [address] [place] [address] Dr. Judy RamirezRBC4.73 106/ulNormal4.20-5.40The [facility] [place] on above:Performed By: #### PTT, PT #### [facility] [address] [place] [address] Dr. Judy RamirezWBC7.6 103/ulNormal4.0-11.0The [facility] Medical CenterComment on above: Performed By: #### PTT, PT #### [facility] [address] [place] [address] Dr. Judy RamirezPROF CHEM 8 (BAS METB)on 44-42-2483Synvs gap [Moles/Vol]9.8 mmol/LNormalWood County HospitalComment on above:Performed By: #### PTT, PT #### [facility] [address] [place] [address] Dr. Judy RamirezCalcium [Mass/Vol]9.3 mg/dLNormal8.5-10.1[facility] Comment on above:Performed By: #### PTT, PT #### [facility] [address] [place] [address] Dr. Judy RamirezChloride [Moles/Vol]105 mmol/PFtcyys29-177WqmWood County Hospital Comment on above:Performed By: #### PTT, PT #### [facility] [address] [place] [address] Dr. Judy RamirezCO2 [Moles/Vol]30.4 mmol/PUipihx71.0-32.0[facility] Comment on above:Performed By: #### PTT, PT #### [facility] [address] [place] [address] Dr. Judy RamirezCreatinine [Mass/Vol]1.15 mg/dLCritically high0.55-1.02The [facility] CenterComment on above:Performed By: #### PTT, PT #### [facility] [address] [place] [address] Dr. Judy TapiaGFR-AF PXBUBSUC58 mL/min/1.59z5Rwmekg>=60[facility] Comment on above:Performed By: #### PTT, PT #### [facility] [address] [place] [address] Dr. Judy TapiaGFR-NON AF VTQFDRZX30 mL/min/1.42p7Fevsmlctbu low>=60The [facility] CenterComment on above:Performed By: #### PTT, PT #### [facility] [address] [place] [address] Dr. Yilan ChangGlucose [Mass/Vol]95 mg/wCRtgvsf34-201TshWood County Hospital Comment on above:Performed By: #### PTT, PT #### [facility] [address] [place] [address] Dr. Judy RamirezPotassium [Moles/Vol]4.2 mmol/LNormal3.5-5.1[facility] Comment on above:Performed By: #### PTT, PT #### [facility] [address] [place] [address] Dr. Judy RamirezSodium [Moles/Vol]141 mmol/BJsspek306-317VcuWood County Hospital Comment on above:Performed By: #### PTT, PT #### [facility] [address] [place] [address] Dr. Judy RamirezUrea nitrogen [Mass/Vol]24.0 mg/dLCritically high7.0-18.0[facility] HospitalComment on above:Performed By: #### PTT, PT #### [facility] [address] [place] [address] Dr. Judy Ortiz nitrogen/Creatinine [Mass ratio]20.9 mg/mgNoMercy HospitalComment on above:Performed By: #### PTT, PT #### [facility] [address] [place] [address] Dr. Judy RamirezPROTIMEon 01-61-3006ENS Coag (PPP) [Relative time]{INR}NormalWood County HospitalComment on above:Performed By: #### PTT, PT #### [facility] [address] [place] [address] Dr. Judy Chi GUIDELINESSEE BELOWOhioHealth O'Bleness HospitalComment on above:Result Comment: DESIRED INR: 2.0 - 3.0 CONDITIONS NOT LISTED BELOW 2.5 - 3.5 FOR PROSTHETIC HEART VALVE REPLACEMENT 2.5 - 3.5 RECURRENT THROMBOSIS Performed By: #### PTT, PT #### [facility] [address] [place] [address] Dr. Judy RamirezPT Coag (PPP) [Time]9.7 sNormal9.0-11.6ThOhioHealth Mansfield Hospital Comment on above:Performed By: #### PTT, PT #### [facility] [address] [address] [address] Judy Flores 99-57-9952fCEC Coag (Bld) [Time]33.6 eChnpgh12.3-36.2Wood County HospitalComment on above:Performed By: #### PTT, PT #### [facility] [address] [place] [address] Dr. Judy Kellogg, URINARYon ,8 DihydroxyadenineOhioHealth O'Bleness HospitalComment on above:Performed By: #### PTT, PT #### [facility] [address] [place] [address] Dr. Judy Brown Acid UrateNormalWood County HospitalComment on above: Performed By: #### PTT, PT #### [facility] [address] [place] [place] [address] Dr. Judy RamirezBilirubin Ql (U)NormalThe University Hospitals Tripoint Medical CenterComment on above: Performed By: #### PTT, PT #### [facility] [address] [place] [address] Dr. Judy Olson Oxalate Wfkvuatid90 %NormalWood County HospitalComment on above:Performed By: #### PTT, PT #### [facility] [address] [place] [address] Dr. Judy OlsonHPO4 (Brushite)NormalWood County HospitalComment on above: Performed By: #### PTT, PT #### [facility] [address] [address] [address] Judy Galvan BilirubinateNormalWood County HospitalComment on above: Performed By: #### PTT, PT #### [facility] [address] [place] [address] Dr. Judy Galvan CarbonateOhioHealth O'Bleness HospitalComment on above: Performed By: #### PTT, PT #### [facility] [address] [place] [address] Dr. Judy Hooverium Oxalate Poxxlafcddj19 %NormalLutheran Hospital on above:Performed By: #### PTT, PT #### [facility] [address] [address] [address] Judy Hooverium PalmitateProMedica Bay Park Hospital on above: Performed By: #### PTT, PT #### [facility] [address] [address] [address] Judy Hooverium PhosphateProMedica Bay Park Hospital on above: Performed By: #### PTT, PT #### [facility] [address] [address] [address] Judy Hooverium StearateNormalLutheran Hospital on above: Performed By: #### PTT, PT #### [facility] [address] [address] [address] Judy RamirezCarbonate ApatiteProMedica Bay Park Hospital on above: Performed By: #### PTT, PT #### [facility] [address] [address] [address] Judy Reaganular MaterialProMedica Bay Park Hospital on above: Performed By: #### PTT, PT #### [facility] [address] [address] [address] Judy RamirezCholesterolProMedica Bay Park Hospital on above:Performed By: #### PTT, PT #### [facility] [address] [address] [address] Judy Friedman ()[facility] on above: Performed By: #### PTT, PT #### [facility] [address] [address] [address] Judy RamirezCommentProMedica Bay Park Hospital on above:Performed By: #### PTT, PT #### [facility] [address] [address] [address] Judy Manzo:[facility] on above:Result Comment: Physician questions regarding Calculi Analysis contact [facility] at: [phone].Performed By: #### PTT, PT #### [facility] [address] [place] [address] Dr. Judy McmullenpositionCommentProMedica Bay Park Hospital on above: Result Comment: Percentage (Represents the % composition)Performed By: #### PTT, PT #### [facility] [address] [place] [address] Dr. Judy RamirezCystineProMedica Bay Park Hospital on above:Performed By: #### PTT, PT #### [facility] [address] [place] [address] Dr. Judy Vegaclaimer:CommentProMedica Bay Park Hospital on above: Result Comment: This test was developed and its performance characteristics determined by [employer]. It has not been cleared or approved by the Food and Drug Administration.Performed By: #### PTT, PT #### [facility] [address] [place] [address] Dr. Judy Guerinied BloodProMedica Bay Park Hospital on above:Performed By: #### PTT, PT #### [facility] [address] [place] [address] Dr. Judy RamirezDrug or MetaboliteProMedica Bay Park Hospital on above: Performed By: #### PTT, PT #### [facility] [address] [place] [address] Dr. Judy RamirezHydroxyapatiteProMedica Bay Park Hospital on above: Performed By: #### PTT, PT #### [facility] [address] [place] [address] Dr. Judy Ralph NH4 PO4 (Struvite)NormalEast [place] Regional Hospitalment on above: Performed By: #### PTT, PT #### [facility] [address] [place] [address] Dr. Judy RamirezMgHPO4 (Newberyite)NormalEast [place] Regional Hospitalment on above: Performed By: #### PTT, PT #### [facility] [address] [place] [address] Dr. Judy RamirezOther component(s)NormalEast [place] Regional Hospitalment on above: Performed By: #### PTT, PT #### [facility] [address] [place] [address] Dr. Judy ZamoranoProMedica Bay Park Hospital on above:Performed By: #### PTT, PT #### [facility] [address] [address] [address] Judy MartinProMedica Bay Park Hospital on above:Result Comment: Photograph will follow under a separate coverPerformed By: #### PTT, PT #### [facility] [address] [place] [address] Dr. Judy Fairchild note:CommentProMedica Bay Park Hospital on above: Result Comment: Calculi report will follow via computer, mail or natural sciences professor delivery.Performed By: #### PTT, PT #### [facility] [address] [place] [address] Dr. Judy KnightJzrreMyey8x0VkuqikDamProMedica Bay Park Hospital on above:Result Comment: Multiple pieces received. Dimensions of the largest piece reported.Performed By: #### PTT, PT #### [facility] [address] [place] [address] Dr. Judy Marquezum Moe UrateNJoint Township District Memorial Hospital on above: Performed By: #### PTT, PT #### [facility] [address] [place] [address] Dr. Judy OkeefeProMedica Bay Park Hospital on above:Result Comment: Not providedPerformed By: #### PTT, PT #### [facility] [address] [place] [address] Dr. Judy PrietoProMedica Bay Park Hospital on above:Performed By: #### PTT, PT #### [facility] [address] [place] [address] Dr. Judy Parra AcidProMedica Bay Park Hospital on above:Performed By: #### PTT, PT #### [facility] [address] [place] [address] Dr. Yilan ChangUric Acid DihydrateNormalThe [facility]als [facility]point Medical CenterComment on above: Performed By: #### PTT, PT #### [facility] [address] [address] [address] [place], [place] [address]Comment on above:Performed By: #### PTT, PT #### [facility] [address] [place] [address] Dr. Judy RoblesnthineOhioHealth O'Bleness HospitalComment on above:Performed By: #### PTT, PT #### [facility] [address] [address] [address] Judy RamirezXR KUB 1 VIEWon [id number] KUB 1 VIEWEXAMINATION: XR KUB 1 VIEW HISTORY: Kidney stone [...] Electronically authenticated by: JERICA HOOPER Date: 2022-07-30 09:38Ohio[facility] O'Bleness HospitalCARDIAC MIKE ADMITon [id number] [Catalytic activity/Vol]84 U/RQxaocp31-352Wnv [facility] Medical CenterComment on above:Performed By: #### PTT, PT #### [facility] [address] [place] [address] Dr. Judy Garcia.MB [Mass/Vol]0.68 ng/mLNormal<=3.60The [facility] Comment on above:Performed By: #### PTT, PT #### [facility] [address] [place] [address] Dr. Judy RamirezHSTROP4.3 pg/mLNormal4.0-51.3The Wood County Hospitalment on above:Result Comment: CUT-OFF POINTS HAVE BEEN ESTABLISHED BASED ON THE FOURTH UNIVERSAL DEFINITIONS OF MYOCARDIAL INFARCTION. THE UPPER REFERENCE LIMIT (URL) OF TROPONIN, DEFINED THE 99TH PERCENTILE OF cTnI DISTRIBUTION IN A REFERENCE POPULATION, HAS BEEN CONFIRMED THE DECISION THRESHOLD FOR [place] DIAGNOSIS.Performed By: #### PTT, PT #### [facility] [address] [place] [address] Dr. Judy DeanO31 ng/mLNormal9-82Wood County HospitalComment on above: Performed By: #### PTT, PT #### [facility] [address] [place] [address] Dr. Judy Anderson AUTO DIFFon [id number] #0.1 103/ulNormal0.0-0.1The [facility] Medical CenterComment on above:Performed By: #### PTT, PT #### [facility] [address] [place] [address] Dr. Judy RamirezBasophils/100 WBC (Bld)0.7 %Normal0.2-2.0[facility] Comment on above:Performed By: #### PTT, PT #### [facility] [address] [place] [address] Dr. Judy Suarez #0.2 103/ulNormal0.0-0.7The [facility] Medical CenterComment on above: Performed By: #### PTT, PT #### [facility] [address] [place] [address] Dr. Judy Tapiaosinophils/100 WBC (Bld)2.1 %Normal0.9-7.0[facility] Comment on above:Performed By: #### PTT, PT #### [facility] [address] [place] [address] Dr. Judy Tapiarythrocyte distribution width (RBC) [Ratio]12.8 %Pnsewv93.0-15.0 [facility] HospitalComment on above:Performed By: #### PTT, PT #### [facility] [address] [place] [address] Dr. Judy RamirezHematocrit (Bld) [Volume fraction]40.6 %Puuypz46.0-48.0The [facility] Medical CenterComment on above:Performed By: #### PTT, PT #### [facility] [address] [address] [address] Judy RamirezHemoglobin (Bld) [Mass/Vol]13.6 g/oEQieraa69.0-16.0The [facility] Medical CenterComment on above:Performed By: #### PTT, PT #### [facility] [address] [place] [address] Dr. Judy Durant #0.04 10e3/ulCritically high0.00-0.03The [facility] Comment on above:Performed By: #### PTT, PT #### [facility] [address] [place] [address] Dr. Juyd Durant %0.6 %Critically high0.0-0.5The [facility] Medical CenterComment on above:Performed By: #### PTT, PT #### [facility] [address] [place] [address] Dr. Judy Baker #2.6 103/ulNormal1.2-3.8The [facility] Medical CenterComment on above:Performed By: #### PTT, PT #### [facility] [address] [place] [address] Dr. Judy Mcmanushocytes/100 WBC (Bld)36.8 %Fsezce23.5-60.0The [facility] Medical CenterComment on above:Performed By: #### PTT, PT #### [facility] [address] [place] [address] Dr. Judy MoctezumaUAL DIFF REQNONormalThe [facility]als Tripoint Medical CenterComment on above: Performed By: #### PTT, PT #### [facility] [address] [place] [address] Dr. Judy Salvador (RBC) [Entitic mass]28.8 yeGhozyk48.7-34.0The [facility] Medical CenterComment on above:Performed By: #### PTT, PT #### [facility] [address] [place] [address] Dr. Judy Fry (RBC) [Mass/Vol]33.5 g/iGKdrsoe22.9-35.2The [facility] Hospitalment on above:Performed By: #### PTT, PT #### [facility] [address] [place] [address] Dr. Judy Mcgrath (RBC) [Entitic vol]86.0 uKYmffbj44.0-99.0The [facility] CenterComment on above:Performed By: #### PTT, PT #### [facility] [address] [place] [address] Dr. Judy Menendez #0.4 103/ulNormal0.3-0.8The [facility] Medical CenterComment on above:Performed By: #### PTT, PT #### [facility] [address] [place] [address] Dr. Judy Wellsocytes/100 WBC (Bld)6.0 %Normal1.7-12.0The [facility] Comment on above:Performed By: #### PTT, PT #### [facility] [address] [place] [address] Dr. Judy Iglesias #3.8 103/ulNormal1.4-6.5The [facility] Medical CenterComment on above:Performed By: #### PTT, PT #### [facility] [address] [place] [address] Dr. Judy Galeanoutrophils/100 WBC (Bld)53.8 %Byfxxf29.0-75.0The [facility] Hospitalment on above:Performed By: #### PTT, PT #### [facility] [address] [place] [address] Dr. Judy Torres mean volume (Bld) [Entitic vol]9.6 fLNormal9.5-13.5The [facility] Medical CenterComment on above:Performed By: #### PTT, PT #### [facility] [address] [place] [address] Dr. Judy CalderonT276 103/avBiciow277-423Wsd [facility] CenterComment on above: Performed By: #### PTT, PT #### [facility] [address] [place] [address] Dr. Judy RamirezRBC4.72 106/ulNormal4.20-5.40The [facility] [place] on above:Performed By: #### PTT, PT #### [facility] [address] [place] [address] Dr. Judy RamirezWBC7.0 103/ulNormal4.0-11.0The [facility] [place] on above: Performed By: #### PTT, PT #### [facility] [address] [place] [address] Dr. Judy Pepe [id number] [Mass/Vol]mg/LNormal<=1.0The [facility] [place] on above:Performed By: #### PTT, PT #### [facility] [address] [place] [address] Dr. Judy LiconaDIMERon 18-90-0423F-DIMER0.39 mg/L FEUNormal<=0.59The [facility] [place] on above:Performed By: #### PTT, PT #### [facility] [address] [place] [address] Dr. Judy Wright COMMENTSSEE [facility] on above:Result Comment: Increases in D-Dimer concentration observed with thromboembolic events [...] thrombolytic or anticoagulant therapy, stress, and generalized hospitalization.Performed By: #### PTT, PT #### [facility] [address] [place] [address] Dr. Judy Dallas PROFILEon [id number] [Mass/Vol]3.7 g/dLNormal3.4-5.0 The [facility] [place] on above:Performed By: #### TSH, CRP, MG, LIVER, BMP, CMADM #### [facility] [address] [place] [address] Dr. Judy RamirezAlbumin/Globulin [Mass ratio]0.9 {ratio}NormalThe [facility] Hospitalment on above:Performed By: #### TSH, CRP, MG, LIVER, BMP, CMADM #### [facility] [address] [place] [address] Dr. Judy Jamison [Catalytic activity/Vol]98 U/EAypbeu20-786Vpb [facility] Hospitalment on above:Performed By: #### TSH, CRP, MG, LIVER, BMP, CMADM #### [facility] [address] [place] [address] Dr. Judy Rae [Catalytic activity/Vol]37 U/TEjlmsn74-46Oaf [facility] [place] on above:Performed By: #### TSH, CRP, MG, LIVER, BMP, CMADM #### [facility] [address] [place] [address] Dr. Judy Hernandez [Catalytic activity/Vol]19 U/ZRgffyt90-93Mll [facility] [place] on above:Performed By: #### TSH, CRP, MG, LIVER, BMP, CMADM #### [facility] [address] [place] [address] Dr. Judy Silverio, CONJUGATED0.1 mg/dLNormal0.0-0.2The [facility] Comment on above:Performed By: #### TSH, CRP, MG, LIVER, BMP, CMADM #### [facility] [address] [place] [address] Dr. Judy Moralesirubin [Mass/Vol]0.4 mg/dLNormal0.2-1.0The [facility] Comment on above:Performed By: #### TSH, CRP, MG, LIVER, BMP, CMADM #### [facility] [address] [place] [address] Dr. Judy RamirezGlobulin (S) [Mass/Vol]4.0 g/dLNormalThe [facility] [place] on above:Performed By: #### TSH, CRP, MG, LIVER, BMP, CMADM #### [facility] [address] [address] [address] Judy RamirezProtein [Mass/Vol]7.7 g/dLNormal6.4-8.2The [facility] Comment on above:Performed By: #### TSH, CRP, MG, LIVER, BMP, CMADM #### [facility] [address] [place] [address] Dr. Judy RamirezMAGNESIUMon 45-40-1519Pkhnkvskj [Mass/Vol]2.1 mg/dLNormal1.8-2.4 The [facility] CenterComment on above:Performed By: #### TSH, CRP, MG, LIVER, BMP, CMADM #### [facility] [address] [place] [address] Dr. Judy RamirezPROF CHEM 8 (BAS METB)on 60-56-6876Tlhay gap [Moles/Vol]11.0 mmol/LNormalThe [facility] CenterComment on above:Performed By: #### TSH, CRP, MG, LIVER, BMP, CMADM #### [facility] [address] [place] [address] Dr. Judy RamirezCalcium [Mass/Vol]9.4 mg/dLNormal8.5-10.1[facility] Comment on above:Performed By: #### TSH, CRP, MG, LIVER, BMP, CMADM #### [facility] [address] [place] [address] Dr. Judy RamirezChloride [Moles/Vol]102 mmol/PWrqpcg73-264Qwk [facility] Comment on above:Performed By: #### TSH, CRP, MG, LIVER, BMP, CMADM #### [facility] [address] [place] [address] Dr. Judy RamirezCO2 [Moles/Vol]29.4 mmol/UAqbhar38.0-32.0The [facility] Comment on above:Performed By: #### TSH, CRP, MG, LIVER, BMP, CMADM #### [facility] [address] [place] [address] Dr. Judy RamirezCreatinine [Mass/Vol]1.04 mg/dLCritically high0.55-1.02The [facility] Hospitalment on above:Performed By: #### TSH, CRP, MG, LIVER, BMP, CMADM #### [facility] [address] [place] [address] Dr. Judy TapiaGFR-AF GUYANESE>60Normal>=60The [facility] CenterComment on above:Performed By: #### TSH, CRP, MG, LIVER, BMP, CMADM #### [facility] [address] [place] [address] Dr. Judy TapiaGFR-NON AF WKMXUFGU05 mL/min/1.22a4Srsfgevvwo low>=60The [facility] CenterComment on above:Performed By: #### TSH, CRP, MG, LIVER, BMP, CMADM #### [facility] [address] [place] [address] Dr. Judy RamirezGlucose [Mass/Vol]98 mg/fRUupfrh13-865JpsWood County Hospital Comment on above:Performed By: #### TSH, CRP, MG, LIVER, BMP, CMADM #### [facility] [address] [place] [address] Dr. Judy RamirezPotassium [Moles/Vol]4.4 mmol/LNormal3.5-5.1[facility] Comment on above:Performed By: #### TSH, CRP, MG, LIVER, BMP, CMADM #### [facility] [address] [place] [address] Dr. Judy RamirezSodium [Moles/Vol]138 mmol/JWuzpkz427-893Mvz [facility] Comment on above:Performed By: #### TSH, CRP, MG, LIVER, BMP, CMADM #### [facility] [address] [place] [address] Dr. Judy RamirezUrea nitrogen [Mass/Vol]25.0 mg/dLCritically high7.0-18.0The [facility] Hospitalment on above:Performed By: #### TSH, CRP, MG, LIVER, BMP, CMADM #### [facility] [address] [place] [address] Dr. Judy RamirezUrea nitrogen/Creatinine [Mass ratio]24.0 mg/mgNormalThe [facility] CenterComment on above:Performed By: #### TSH, CRP, MG, LIVER, BMP, CMADM #### [facility] [address] [address] [address] Judy Ruff RATE WESTERGRENon 65-51-1727WIB RATE27 mm/hrNormal<=30The [facility] CenterComment on above:Performed By: #### SEDR #### [facility] [address] [address] [address] Judy Keith 12-46-6842OWI7.701 uIU/mLNormal0.358-3.740The [facility] CenterComment on above:Performed By: #### TSH, CRP, MG, LIVER, BMP, CMADM #### [facility] [address] [place] [address] Dr. Judy Bryant (CLEAN/CATCH) ARABIC TRANSLATOR/MICRO IF IND.on 41-23-3918Xizgpnuhs Ql (U) NegativeNormalNEGATIVEWood County HospitalComment on above:Performed By: #### MALIA UMICRO #### [facility] [address] [place] [address] Dr. Judy RamirezClsuzy (U)CLEARNormalCLEARWood County HospitalComment on above: Performed By: #### UACSSIDDHARTHA UMICRO #### [facility] [address] [address] [address] Judy Friedman (U)LT. YELLOWNormalYELLOWThe [facility] Medical CenterComment on above:Performed By: #### UACSSIDDHARTHA, UMICRO #### [facility] [address] [place] [address] Dr. Judy RamirezGlucose Ql (U)NegativeNormalNEGATIVEWood County HospitalComment on above:Performed By: #### UACSIND, UMICRO #### [facility] [address] [place] [address] Dr. Judy RamirezHemoglobin Ql (U)NegativeNormalNEGATIVECleveland Clinic Lutheran Hospital on above:Performed By: #### MALIA UMICRO #### [facility] [address] [address] [address] Judy Baca Ql (U)NegativeNormalNEGATIVEThe [facility] CenterComment on above:Performed By: #### MALIA UMICRO #### [facility] [address] [place] [address] Dr. Judy RamirezLEUKOCYTESNegativeNormalNEGATIVEWood County HospitalComment on above:Performed By: #### MALIA UMICRO #### [facility] [address] [place] [address] Dr. Judy Coffeytrdale Ql (U)NegativeNormalNEGATIVEThe [facility] CenterComment on above:Performed By: #### MALIA UMICRO #### [facility] [address] [place] [address] Dr. Judy RamirezpH (U)6.0 [pH]Normal5-9The [facility] CenterComment on above: Performed By: #### MALIA UMICRO #### [facility] [address] [place] [address] Dr. Judy RamirezSPEC GRAVITY<=1.512Zijqhuhb4.005-<=1.025The [facility] Comment on above:Performed By: #### MALIA UMICRO #### [facility] [address] [place] [address] Dr. Judy RamirezUA PROTEINNegativeNormalNEGATIVE/ TRACEThe [facility] Comment on above:Performed By: #### MALIA UMICRO #### [facility] [address] [place] [address] Dr. Judy Melo MICRO INDMICROSCOPIC ALREADY ORDEREDNormalThe [facility] CenterComment on above:Performed By: #### MALIA UMICRO #### [facility] [address] [place] [address] Dr. Judy Lanebilinogen Qn (U)0.2 {Evelyn'U}/dLNormal0.2 - 1.0The [facility] CenterComment on above:Performed By: #### MALIA UMICRO #### [facility] [address] [address] [address] Judy Romero MICROSCOPIC ONLYon 13-56-5930DZAFDNSOZUJA SEENNormalNONE SEENWood County HospitalComment on above:Performed By: #### UACSSIDDHARTHA, UMICRO #### [facility] [address] [address] [address] Judy Kapoor identified Cx Nom (U)NOT INDICATEDNormalThe [facility] CenterComment on above:Performed By: #### HEBERCSSIDDHARTHA UMICRO #### [facility] [address] [place] [address] Dr. Judy Stevens SEENNormalNONE SEENLutheran Hospital on above:Performed By: #### MALIA UMICRO #### [facility] [address] [place] [address] Dr. Judy Willard LM Nom (Urine sed)NONE SEENNormalNONE SEENWood County HospitalComascension genesys hospital on above:Performed By: #### MALIA UMICRO #### [facility] [address] [place] [address] Dr. Judy Robinthelial cells LM Ql (Urine sed)FEWAbnormalNONE SEEN /RAREThe [facility] CenterComascension genesys hospital on above:Performed By: #### MALIA UMICRO #### [facility] [address] [place] [address] Dr. Judy WhitingACEAbnormalNONE SEENWood County HospitalComment on above:Performed By: #### MALIA UMICRO #### [facility] [address] [place] [address] Dr. Judy Dawson SEENAbnormal0-2Wood County HospitalComment on above: Performed By: #### MALIA UMICRO #### [facility] [address] [address] [address] Judy DuqueBCIVONNE SEENNormalNONE SEENWood County HospitalComment on above: Performed By: #### UACSIND, UMICRO #### [facility] [address] [address] [address] Judy RamirezXR KUB 1 VIEWon [id number] KUB 1 VIEWEXAMINATION: XR KUB 1 VIEW HISTORY: Urolithiasis COMPARISON: [...] Electronically authenticated by: JERICA HOOPER Date: 2022-07-02 12:05[facility] AUTO DIFFon [id number] #0.0 103/ulNormal0.0-0.1The [facility] CenterComment on above:Performed By: #### PTT, PT #### [facility] [address] [address] [address] Judy RamirezBasophils/100 WBC (Bld)0.4 %Normal0.2-2.0The [facility] Comment on above:Performed By: #### PTT, PT #### [facility] [address] [address] [address] Judy Suarez #0.1 103/ulNormal0.0-0.7The [facility] CenterComment on above: Performed By: #### PTT, PT #### [facility] [address] [address] [address] Judy Tapiaosinophils/100 WBC (Bld)1.5 %Normal0.9-7.0The [facility] Comment on above:Performed By: #### PTT, PT #### [facility] [address] [address] [address] Judy Tapiarythrocyte distribution width (RBC) [Ratio]13.1 %Rrxanw16.0-15.0 The [facility] CenterComment on above:Performed By: #### PTT, PT #### [facility] [address] [place] [address] Dr. Judy Bennettatocrit (Bld) [Volume fraction]40.7 %Azuqlv73.0-48.0The [facility] CenterComment on above:Performed By: #### PTT, PT #### [facility] [address] [place] [address] Dr. Judy RamirezHemoglobin (Bld) [Mass/Vol]13.8 g/aXJxbzic30.0-16.0The [facility] CenterComment on above:Performed By: #### PTT, PT #### [facility] [address] [place] [address] Dr. Judy Durant #0.03 10e3/ulNormal0.00-0.03The [facility] CenterComascension genesys hospital on above:Performed By: #### PTT, PT #### [facility] [address] [place] [address] Dr. Judy Durant %0.4 %Normal0.0-0.5The [facility] CenterComment on above: Performed By: #### PTT, PT #### [facility] [address] [place] [address] Dr. Judy Baker #1.9 103/ulNormal1.2-3.8The [facility] CenterComascension genesys hospital on above:Performed By: #### PTT, PT #### [facility] [address] [place] [address] Dr. Judy Mcmanushocytes/100 WBC (Bld)24.5 %Eecich95.5-60.0The [facility] CenterComment on above:Performed By: #### PTT, PT #### [facility] [address] [place] [address] Dr. Judy MoctezumaUAL DIFF REQNONormalThe [facility] CenterComment on above: Performed By: #### PTT, PT #### [facility] [address] [place] [address] Dr. Judy Salvador (RBC) [Entitic mass]28.4 uqEdhycn03.7-34.0The [facility] CenterComment on above:Performed By: #### PTT, PT #### [facility] [address] [place] [address] Dr. Judy Fry (RBC) [Mass/Vol]33.9 g/kXSyeajd62.9-35.2The [facility] CenterComment on above:Performed By: #### PTT, PT #### [facility] [address] [place] [address] Dr. Judy Mcgrath (RBC) [Entitic vol]83.7 xFQdeikl13.0-99.0The [facility] CenterComment on above:Performed By: #### PTT, PT #### [facility] [address] [place] [address] Dr. Judy Menendez #0.5 103/ulNormal0.3-0.8The [facility] CenterComment on above:Performed By: #### PTT, PT #### [facility] [address] [place] [address] Dr. Judy Wellsocytes/100 WBC (Bld)6.5 %Normal1.7-12.0The [facility] Comment on above:Performed By: #### PTT, PT #### [facility] [address] [place] [address] Dr. Judy Iglesias #5.1 103/ulNormal1.4-6.5The [facility] CenterComment on above:Performed By: #### PTT, PT #### [facility] [address] [place] [address] Dr. Judy Galeanoutrophils/100 WBC (Bld)66.7 %Pejbxk20.0-75.0The [facility] CenterComment on above:Performed By: #### PTT, PT #### [facility] [address] [place] [address] Dr. Judy Torres mean volume (Bld) [Entitic vol]9.5 fLNormal9.5-13.5The [facility] CenterComment on above:Performed By: #### PTT, PT #### [facility] [address] [address] [address] Judy RamirezPLT238 103/rhHagjbm952-510Tfx [facility] CenterComment on above: Performed By: #### PTT, PT #### [facility] [address] [address] [address] Judy RamirezRBC4.86 106/ulNormal4.20-5.40The [facility] CenterComment on above:Performed By: #### PTT, PT #### [facility] [address] [place] [address] Dr. Judy RamirezWBC7.6 103/ulNormal4.0-11.0The [facility] CenterComment on above: Performed By: #### PTT, PT #### [facility] [address] [place] [address] Dr. Judy RamirezPROF CHEM 8 (BAS METB)on 01-89-5890Nvwbs gap [Moles/Vol]11.5 mmol/LNormalThe [facility] CenterComment on above:Performed By: #### BMP #### [facility] [address] [place] [address] Dr. Judy RamirezCalcium [Mass/Vol]9.9 mg/dLNormal8.5-10.1The [facility] Comment on above:Performed By: #### BMP #### [facility] [address] [place] [address] Dr. Judy RamirezChloride [Moles/Vol]105 mmol/DAkbqqb60-761Rsi [facility] Comment on above:Performed By: #### BMP #### [facility] [address] [place] [address] Dr. Judy RamirezCO2 [Moles/Vol]28.1 mmol/SJdtkva09.0-32.0The [facility] Comment on above:Performed By: #### BMP #### [facility] [address] [place] [address] Dr. Judy RamirezCreatinine [Mass/Vol]1.11 mg/dLCritically high0.55-1.02The [facility] HospitalComment on above:Performed By: #### BMP #### [facility] [address] [address] [address] Judy TapiaGFR-AF GUYANESE>60Normal>=60The [facility] CenterComment on above:Performed By: #### BMP #### [facility] [address] [address] [address] Judy TapiaGFR-NON AF UXFREKBN46 mL/min/1.21t9Qtqnsinpoi low>=60The [facility] CenterComment on above:Performed By: #### BMP #### [facility] [address] [address] [address] Judy RamirezGlucose [Mass/Vol]97 mg/nELzbcek49-015Vbi [facility] Comment on above:Performed By: #### BMP #### [facility] [address] [place] [address] Dr. Judy RamirezPotassium [Moles/Vol]3.6 mmol/LNormal3.5-5.1[facility] Comment on above:Performed By: #### BMP #### [facility] [address] [address] [address] Judy RamirezSodium [Moles/Vol]141 mmol/JQnyhhz778-466CuoWood County Hospital Comment on above:Performed By: #### BMP #### [facility] [address] [address] [address] Judy RamirezUrea nitrogen [Mass/Vol]15.0 mg/dLNormal7.0-18.0The [facility] CenterComment on above:Performed By: #### BMP #### [facility] [address] [address] [address] Judy RamirezUrea nitrogen/Creatinine [Mass ratio]13.5 mg/mgNormalThe [facility] CenterComment on above:Performed By: #### BMP #### [facility] [address] [address] [address] Judy RamirezPROTIMEon 55-94-2561CXO Coag (PPP) [Relative time]{INR}NormalThe [facility] CenterComment on above:Performed By: #### SEDR #### [facility] [address] [place] [address] Dr. Judy Chi GUIDELINESSEE [facility] Tiffin HospitalComment on above:Result Comment: DESIRED INR: 2.0 - 3.0 CONDITIONS NOT LISTED BELOW 2.5 - 3.5 FOR PROSTHETIC HEART VALVE REPLACEMENT 2.5 - 3.5 RECURRENT THROMBOSIS Performed By: #### SEDR #### [facility] [address] [place] [address] Dr. Judy RamirezPT Coag (PPP) [Time]9.8 sNormal9.0-11.6ThOhioHealth Mansfield Hospital Comment on above:Performed By: #### SEDR #### [facility] [address] [place] [address] Dr. Judy Flores 24-43-5634qLMN Coag (Bld) [Time]35.3 zNjuvym88.3-36.2[facility] HospitalComment on above:Performed By: #### SEDR #### [facility] [address] [place] [address] Dr. Judy RamirezXR KUB 1 VIEWon [id number] KUB 1 VIEWEXAMINATION: XR KUB 1 VIEW HISTORY: Kidney stone [...] authenticated by: LUIS M ODOM Date: 2022-06-20 12:[address] [place], [place] [address]MG MAMM SCREEN 3D LEE CADon [id number] MAMM SCREEN 3D LEE CAD Patient: CINTHIA BADILLO Exam Date: 06/16/2022 : 1970 Gender:F Ordering : ZELALEM PATTON CNP Admission #: [id number] Family : Order #: [id number] CLICK HERE TO VIEW EXAM RADIOLOGY REPORT [...] at age 80. LOCATION: [facility] BREAST COMPOSITION: Scattered areas fibroglandular [...] Luis M Odom MD on 06/17/2022 at 08:06[facility] HospitalCT ABD/PELV W CONon [id number] ABD/PELV W CONEXAMINATION: CT ABD/PELV W CON HISTORY: Epigastric pain COMPARISON: No [...] Electronically authenticated by: JERICA HOOPER Date: 2022-06-03 08:59NoMercy HospitalAMYLASEon 45-90-7913Sdkzzeq [Catalytic activity/Vol]74 U/L Wjnfpo54-330Ngo [facility] CenterComment on above:Performed By: #### SEDR #### [facility] [address] [address] [address] Judy Anderson AUTO DIFFon [id number] #0.0 103/ulNormal0.0-0.1The [facility] CenterComment on above:Performed By: #### SEDR #### [facility] [address] [address] [address] Judy RamirezBasophils/100 WBC (Bld)0.5 %Normal0.2-2.0[facility] Comment on above:Performed By: #### SEDR #### [facility] [address] [address] [address] Judy Suarez #0.1 103/ulNormal0.0-0.7The [facility] CenterComment on above: Performed By: #### SEDR #### [facility] [address] [address] [address] Judy Tapiaosinophils/100 WBC (Bld)2.6 %Normal0.9-7.0[facility] Comment on above:Performed By: #### SEDR #### [facility] [address] [address] [address] Judy Tapiarythrocyte distribution width (RBC) [Ratio]12.4 %Sfsaiw04.0-15.0 [facility] HospitalComment on above:Performed By: #### SEDR #### [facility] [address] [place] [address] Dr. Judy RamirezHematocrit (Bld) [Volume fraction]41.1 %Qhqfzh36.0-48.0The [facility] CenterComment on above:Performed By: #### SEDR #### [facility] [address] [place] [address] Dr. Judy RamirezHemoglobin (Bld) [Mass/Vol]13.8 g/jPAkyfyk99.0-16.0The [facility] CenterComment on above:Performed By: #### SEDR #### [facility] [address] [place] [address] Dr. Judy Durant #0.01 10e3/ulNormal0.00-0.03The [facility] CenterComment on above:Performed By: #### SEDR #### [facility] [address] [place] [address] Dr. Judy Durant %0.2 %Normal0.0-0.5The [facility] CenterComment on above: Performed By: #### SEDR #### [facility] [address] [place] [address] Dr. Judy Baker #2.1 103/ulNormal1.2-3.8The [facility] CenterComment on above:Performed By: #### SEDR #### [facility] [address] [place] [address] Dr. Judy Mcmanushocytes/100 WBC (Bld)37.8 %Dhblbb30.5-60.0The [facility] CenterComment on above:Performed By: #### SEDR #### [facility] [address] [place] [address] Dr. Judy MoctezumaUAL DIFF REQNONormalThe [facility] CenterComment on above: Performed By: #### SEDR #### [facility] [address] [place] [address] Dr. Judy Salvador (RBC) [Entitic mass]28.4 doZfsvvj65.7-34.0The [facility] CenterComment on above:Performed By: #### SEDR #### [facility] [address] [place] [address] Dr. Judy FryHC (RBC) [Mass/Vol]33.6 g/gLVmbjnr59.9-35.2The [facility] CenterComment on above:Performed By: #### SEDR #### [facility] [address] [place] [address] Dr. Judy FryV (RBC) [Entitic vol]84.6 dMOieqge05.0-99.0The [facility] CenterComment on above:Performed By: #### SEDR #### [facility] [address] [place] [address] Dr. Judy Menendez #0.3 103/ulNormal0.3-0.8The [facility] CenterComment on above:Performed By: #### SEDR #### [facility] [address] [place] [address] Dr. Judy Wellsocytes/100 WBC (Bld)5.5 %Normal1.7-12.0The [facility] Comment on above:Performed By: #### SEDR #### [facility] [address] [place] [address] Dr. Judy Iglesias #2.9 103/ulNormal1.4-6.5The [facility] CenterComment on above:Performed By: #### SEDR #### [facility] [address] [place] [address] Dr. Judy Galeanoutrophils/100 WBC (Bld)53.4 %Uiufgx66.0-75.0The [facility] CenterComment on above:Performed By: #### SEDR #### [facility] [address] [place] [address] Dr. Judy Ruedalet mean volume (Bld) [Entitic vol]9.4 fLCritically low 9.5-13.5The [facility] CenterComment on above:Performed By: #### SEDR #### [facility] [address] [place] [address] Dr. Judy RamirezPLT274 103/jyOemsrc064-490Mlq [facility] CenterComment on above: Performed By: #### SEDR #### [facility] [address] [place] [address] Dr. Judy RamirezRBC4.86 106/ulNormal4.20-5.40The [facility] Hospitalment on above:Performed By: #### SEDR #### [facility] [address] [place] [address] Dr. Judy RamirezWBC5.5 103/ulNormal4.0-11.0The [facility] CenterComment on above: Performed By: #### SEDR #### [facility] [address] [place] [address] Dr. Judy RamirezLIPASEon 16-27-7950Uhplrk [Catalytic activity/Vol]97.0 U/LNormal 73.0-393.0The [facility] [place] on above:Performed By: #### ALMA FINLEY #### [facility] [address] [place] [address] Dr. Judy JovelID PROFILEon 85-40-3245PSRQ-HDL RATIO NORMSEE [facility] HospitalComascension genesys hospital on above:Result Comment: 3.3 - 4.4 LOW RISK 4.4 - 7.1 AVERAGE RISK 7.1 - 11.0 MODERATE RISK >11.0 HIGH RISKPerformed By: #### SEDR #### [facility] [address] [place] [address] Dr. Judy RamirezCholesterol [Mass/Vol]203 mg/dLCritically high<=200The [facility] [place] on above:Performed By: #### SEDR #### [facility] [address] [place] [address] Dr. Judy RamirezCholesterol in HDL [Mass/Vol]48 mg/cAZrrmpz19-70Tuv [facility] [place] on above:Performed By: #### SEDR #### [facility] [address] [place] [address] Dr. Judy RamirezCholesterol in LDL [Mass/Vol]130.0 mg/dLProMedica Bay Park Hospital on above:Performed By: #### SEDR #### [facility] [address] [place] [address] Dr. Judy RamirezCholesterol.total/Cholesterol in HDL [Mass ratio]4.2 {ratio} NormalThe [facility] CenterComment on above:Performed By: #### SEDR #### [facility] [address] [place] [address] Dr. Judy Randolph NORMAL> or = 60 mg/dl - LOW CARDIOVASCULAR RISK <40 mg/dl - HIGH CARDIOVASCULAR RISKOhioHealth O'Bleness HospitalComment on above:Performed By: #### SEDR #### [facility] [address] [place] [address] Dr. Judy RamirezLDL CALC NORMALSEE BELOWOhioHealth O'Bleness HospitalComment on above:Result Comment: <100 mg/dl OPTIMAL 100 - 129 mg/dl NEAR OR ABOVE OPTIMAL 130 - 159 mg/dl BORDERLINE HIGH 160 - 189 mg/dl HIGH >190 mg/dl VERY HIGH Performed By: #### SEDR #### [facility] [address] [place] [address] Dr. Judy RamirezTriglyceride [Mass/Vol]125 mg/dLNormal<=150[facility] Comment on above:Performed By: #### SEDR #### [facility] [address] [place] [address] Dr. Judy LockeLDL CALC25.0 mg/dLNoMercy HospitalComment on above: Performed By: #### SEDR #### [facility] [address] [place] [address] Dr. Judy RamirezPROF 14(COMP METB)on 71-81-1902Iaknxwe [Mass/Vol]3.5 g/dLNormal 3.4-5.0[facility] HospitalComment on above:Performed By: #### ADITYA FINLEYRO #### [facility] [address] [place] [address] Dr. Judy RamirezAlbumin/Globulin [Mass ratio]0.9 {ratio}NormalThe [facility] CenterComment on above:Performed By: #### ADITYA FINLEYRO #### [facility] [address] [place] [address] Dr. Judy Jamison [Catalytic activity/Vol]86 U/SDkourc11-079Vdt [facility] CenterComment on above:Performed By: #### ADITYA FINLEYRO #### [facility] [address] [address] [address] Judy RodrigezT [Catalytic activity/Vol]32 U/LFrghdq56-93Npg [facility] CenterComment on above:Performed By: #### MALIA UMICRO #### [facility] [address] [place] [address] Dr. Judy Mckeonon gap [Moles/Vol]9.6 mmol/LNormalThe [facility] CenterComment on above:Performed By: #### ADITYA FINLEYRO #### [facility] [address] [place] [address] Dr. Judy RamirezAST [Catalytic activity/Vol]19 U/NVwhrsy37-55Anq [facility] CenterComment on above:Performed By: #### PINKY FINLEYICRO #### [facility] [address] [place] [address] Dr. Judy RamirezBilirubin [Mass/Vol]0.5 mg/dLNormal0.2-1.0The [facility] Comment on above:Performed By: #### PINKY FINLEYICRO #### [facility] [address] [place] [address] Dr. Judy RamirezCalcium [Mass/Vol]9.3 mg/dLNormal8.5-10.1[facility] Comment on above:Performed By: #### PINKY FINLEYICRO #### [facility] [address] [place] [address] Dr. Judy RamirezChloride [Moles/Vol]106 mmol/CUyqxhv94-260Qil [facility] Comment on above:Performed By: #### MALIA UMICRO #### [facility] [address] [place] [address] Dr. Judy RamirezCO2 [Moles/Vol]30.7 mmol/QXjhdnw33.0-32.0The University [facility] Comment on above:Performed By: #### MALIA UMICRO #### [facility] [address] [address] [address] Judy RamirezCreatinine [Mass/Vol]0.92 mg/dLNormal0.55-1.02The [facility] CenterComment on above:Performed By: #### MALIA UMICRO #### [facility] [address] [address] [address] Judy TapiaGFR-AF GUYANESE>60Normal>=60The [facility] CenterComment on above:Performed By: #### MALIA UMICRO #### [facility] [address] [address] [address] Judy Minaya-NON AF GUYANESE>60Normal>=60The [facility] CenterComment on above:Performed By: #### MALIA UMICRO #### [facility] [address] [address] [address] Judy RamirezGlobulin (S) [Mass/Vol]3.9 g/dLNormalThe [facility] CenterComment on above:Performed By: #### MALIA UMICRO #### [facility] [address] [place] [address] Dr. Judy RamirezGlucose [Mass/Vol]95 mg/lVCfwrea45-374FoyWood County Hospital Comment on above:Performed By: #### PINKY FINLEYICRO #### [facility] [address] [place] [address] Dr. Judy RamirezPotassium [Moles/Vol]4.3 mmol/LNormal3.5-5.1[facility] Comment on above:Performed By: #### MALIA UMICRO #### [facility] [address] [place] [address] Dr. Judy RamirezProtein [Mass/Vol]7.4 g/dLNormal6.4-8.2[facility] Comment on above:Performed By: #### MALIA UMICRO #### [facility] [address] [place] [address] Dr. Judy Marquezum [Moles/Vol]142 mmol/RUsnuwc552-392QduWood County Hospital Comment on above:Performed By: #### ALMA FINLEY #### [facility] [address] [place] [address] Dr. Judy Ortiz nitrogen [Mass/Vol]17.0 mg/dLNormal7.0-18.0[facility] HospitalComment on above:Performed By: #### ALMA FINLEY #### [facility] [address] [place] [address] Dr. Judy Ortiz nitrogen/Creatinine [Mass ratio]18.5 mg/mgNormalThe [facility] CenterComment on above:Performed By: #### ALMA FINLEY #### [facility] [address] [place] [address] Dr. Judy Bryant RANDOM W/MICROSCOPICon [id number] SEENNormalNONE SEENWood County HospitalComment on above:Performed By: #### PTT, PT #### [facility] [address] [place] [address] Dr. Judy Martínez Ql (U)NegativeNormalNEGATIVEWood County Hospital Comment on above:Performed By: #### PTT, PT #### [facility] [address] [place] [address] Dr. Judy Stevens SEENNormalNONE SEENWood County HospitalComment on above:Performed By: #### PTT, PT #### [facility] [address] [place] [address] Dr. Judy Velásquez (U)CLEARNormalCLEARWood County HospitalComment on above: Performed By: #### PTT, PT #### [facility] [address] [place] [address] Dr. Judy Friedman (U)LT. YELLOWNormalYELLOWWood County HospitalComment on above:Performed By: #### PTT, PT #### [facility] [address] [place] [address] Dr. Yilan ChangCrystals LM Nom (Urine sed)NONE SEENNormalNONE SEENWood County HospitalComment on above:Performed By: #### PTT, PT #### [facility] [address] [place] [address] Dr. Judy Tapiapithelial cells LM Ql (Urine sed)FEWAbnormalNONE SEEN /RAREThe [facility] CenterComment on above:Performed By: #### PTT, PT #### [facility] [address] [place] [address] Dr. Judy RamirezGlucose Ql (U)NegativeNormalNEGATIVEWood County HospitalComment on above:Performed By: #### PTT, PT #### [facility] [address] [place] [address] Dr. Judy RamirezHemoglobin Ql (U)TRACE-INTACTAbnormalNEGATIVEWood County HospitalComment on above:Performed By: #### PTT, PT #### [facility] [address] [place] [address] Dr. Judy Mcraeones Ql (U)NegativeNormalNEGATIVEWood County HospitalComment on above:Performed By: #### PTT, PT #### [facility] [address] [place] [address] Dr. Judy RamirezLEUKOCYTESNegativeNormalNEGATIVEWood County HospitalComment on above:Performed By: #### PTT, PT #### [facility] [address] [place] [address] Dr. Judy RamirezMUCOUSNONE SEENNormalNONE SEENWood County HospitalComment on above:Performed By: #### PTT, PT #### [facility] [address] [place] [address] Dr. Judy RamirezNitrite Ql (U)NegativeNormalNEGATIVEWood County HospitalComment on above:Performed By: #### PTT, PT #### [facility] [address] [place] [address] Dr. Judy RamirezpH (U)7.0 [pH]Normal5-9Wood County HospitalComment on above: Performed By: #### PTT, PT #### [facility] [address] [address] [address] Judy RamirezRBCNONE SEENAbnormal0-2The Wood County Hospitalment on above: Performed By: #### PTT, PT #### [facility] [address] [address] [address] Judy RamirezSPEC GRAVITY1.920Wdavbk3.005-<=1.025The [facility] CenterComment on above:Performed By: #### PTT, PT #### [facility] [address] [place] [address] Dr. Judy Bryant PROTEINNegativeNormalNEGATIVE/ TRACEThe [facility] Comment on above:Performed By: #### PTT, PT #### [facility] [address] [place] [address] Dr. Judy Lanebiltrevor Qn (U)0.2 {Evelyn'U}/dLNormal0.2 - 1.0The Wood County Hospitalment on above:Performed By: #### PTT, PT #### [facility] [address] [place] [address] Dr. Judy Wang SEENNormalNONE SEENWood County HospitalComascension genesys [facility] on above: Performed By: #### PTT, PT #### [facility] [address] [place] [address] Dr. Judy Ortiz THROATon [id number] THROATIsolate 1 Streptococcus dysgalactiae Moderate growth of ORGANISM 1 Streptococcus dysgalactiae ANTIBIOTIC M.I.C RX STATUS Benzylpenicillin <=0.06 S F Ampicillin <=0.25 S F Cefotaxime <=0.12 S F Ceftriaxone <=0.12 S F Levofloxacin 0.5 S F Erythromycin <=0.12 S F Clindamycin <=0.25 S F Linezolid <=2 S F Vancomycin 0.5 S F Tetracycline >=16 R FNormalThe [facility] CenterComment on above:Performed By: #### SEDR #### [facility] [address] [place] [address] Dr. Judy Vicente-19 PCR (CVDTB)on [id number]-CoV-2 (COVID-19) RNA CAROLA+probe Ql (Unsp spec)Not detectedNormalNOT DETECTEDThe [facility] Comment on above:Result Comment: This test is not yet approved or cleared by the [place] FDA. When there are no FDA-approved or cleared tests available, and other criteria are met, FDA can make tests available under an emergency access mechanism called an Emergency Use Authorization (EUA). The EUA for this test is supported by the [place] of Health and Human Service's (HHS's) declaration that circumstances exist to justify the emergency use of in vitro diagnostics for the detection and/or diagnosis of the virus that causes COVID- 19. This EUA will remain in effect (meaning [...] of clinical signs and symptoms consistent with SARS-CoV-2.Performed By: #### UACSIND, JULISSARO #### [facility] [address] [place] [address] Dr. Judy Vicente-19 Positive/NegativeOrdered By: Luis M Juarez on 08-13-2021 SARS-CoV-2 (COVID-19) N gene CAROLA+probe Ql (Resp)NegativeNegativeSelect [facility], BeachwoodComment on above:Testing for SARS-CoV-2 by RT-PCR This test was developed and its performance characteristics determined by [employer] ([employer]) and validated at the [facility] [place]. This test has not been FDA cleared [...] of time the declaration that circumstances exist ju stifying the authorization of the emergency use of in vitro diagnostic tests for detection of SARS-CoV-2 virus and/or diagnosis of COVID-19 infection under section 564(b)(1) of the Act, 21 U.S.C. 360bbb-3(b)(1), unless the authorization is terminated or revoked sooner. Vital Signs Date TimeVital SignValuePerforming SngfncdypWdxafhmv71-10-2467 17:36-0400Body kfyirc191.1 cmLisa Aichholz METALWORKING INSTRUCTOR-C Work Phone: [facility] [place]09-22-2025 17:36-0400 Body mass index (BMI) [Ratio]33.2 kg/m2Lisa Aichholz METALWORKING INSTRUCTOR-C Work Phone: [facility] [place]09-22-2025 17:36-0400 Body jeworsopoou82.5 [degF]Kamilla Aichholz METALWORKING INSTRUCTOR-C Work Phone: [facility] [place]09-22-2025 17:36-0400 Body qlkejc36.49 kgLisa Aichholz METALWORKING INSTRUCTOR-C Work Phone: [facility] [place]09-22-2025 17:36-0400 Diastolic blood tnbeqahg01 mm[Hg]Kamilla Aichholz METALWORKING INSTRUCTOR-C Work Phone: [facility] [place]09-22-2025 17:36-0400 Heart rate71 /minLisa Aichholz METALWORKING INSTRUCTOR-C Work Phone: [facility] [place]09-22-2025 17:36-0400 Respiratory rate16 /minLisa Aichholz METALWORKING INSTRUCTOR-C Work Phone: [facility] [place]09-22-2025 17:36-0400 SaO2% (BldA) [Mass fraction]99 %Kamilla Aichholz METALWORKING INSTRUCTOR-C Work Phone: [facility] [place]09-22-2025 17:36-0400 Systolic blood vivjkqdj466 mm[Hg]Kamilla Aichholz METALWORKING INSTRUCTOR-C Work Phone: 1(792)094-[address] [place], [place] 1793508-05-2025 10:41-0400 Body .1 cmLisa Aichholz Work Phone: 1([phone] [place], [place] 4784008-05-2025 10:41-0400 Body mass index (BMI) [Ratio]34.3 kg/m2Lisa Aichholz Work Phone: [phone])562-[address] [place], [place] 4784008-05-2025 10:41-0400 Body sqxzuz09.61 kgLisa Aichholz Work Phone: 1(261)455-[address] [place], [place] 4784008-05-2025 10:41-0400 Diastolic blood fdlqypij10 mm[Hg]Kamilla Aichholz Work Phone: 1(430)[address]08-05-2025 10:41-0400 Heart rate80 /minLisa Aichholz Work Phone: 1(716)761-[address] [place], [place] 4784008-05-2025 10:41-0400 SaO2% (BldA) [Mass fraction]98 %Kamilla Aichholz Work Phone: 1(370)282-[address] [place], [place] 4784008-05-2025 10:41-0400 Systolic blood ddfgavek337 mm[Hg]Kamilla Aichholz Work Phone: 1(959)622-[address] [place], [place] 4784008-02-2025 18:30-0400 Diastolic blood gwdjiojd80 mm[Hg]Kamilla Aichholz Work Phone: 1(023)067-[address] [place], [place] 4784008-02-2025 18:30-0400 Heart rate78 /minLisa Aichholz Work Phone: 1([phone] [place], [place] 4784008-02-2025 18:30-0400 Respiratory rate18 /minLisa Aichholz Work Phone: 1(045)608-[address] [place], [place] 4784008-02-2025 18:30-0400 SaO2% (BldA) [Mass fraction]97 %Kamilla Aichholz Work Phone: 1(212)839-[address] [place], [place] 4784008-02-2025 18:30-0400 Systolic blood bpsgcqqo012 mm[Hg]Kamilla Aichholz Work Phone: [phone])[address]08-02-2025 12:58-0400 Body mdlvta306.1 cmLisa Aichholz Work Phone: 1(388)19708 [address]08-02-2025 12:58-0400 Body nzyfqquogms92.7 [degF]Kamilla Aichholz Work Phone: 1(773)[address]08 [address]08-02-2025 12:58-0400 Body atcyiy23 kgLisa Aichholz Work Phone: [phone])[address]07-31-2025 11:20-0400 Body qqrbif853.1 cmLisa Aichholz Work Phone: 1(525)[address]07-31-2025 11:20-0400 Body rdtfconnkqj00.2 [degF]Kamilla Aichholz Work Phone: 1(781)[address]07-31-2025 11:20-0400 Body adtuxx53 kgLisa Aichholz Work Phone: 1(001)97708 [address]07-31-2025 11:20-0400 Diastolic blood xtexgtvm65 mm[Hg]Kamilla Aichholz Work Phone: 1(465)14908 [address]07-31-2025 11:20-0400 Heart rate77 /minLisa Aichholz Work Phone: 1([phone])06808 [address]07-31-2025 11:20-0400 Respiratory rate22 /minLisa Aichholz Work Phone: 1([phone] [place], [place] 4784007-31-2025 11:20-0400 SaO2% (BldA) [Mass fraction]99 %Kamilla Aichholz Work Phone: [phone])42208 [address]07-31-2025 11:20-0400 Systolic blood hyfgvtoh721 mm[Hg]Kamilla Aichholz Work Phone: [facility] [place]07-15-2025 16:07-0400 Body mass index (BMI) [Ratio]34.22 kg/m2Lisa Bisihholz METALWORKING INSTRUCTOR Work Phone: [facility] HospitalOfcolaecdw28-22-0076 16:07-0400Body temperature 98.29 [degF]Kamilla Bisihholz METALWORKING INSTRUCTOR Work Phone: [facility] HospitalYzhiccikyy07-92-7011 16:07-0400Body rumvgq22.16 kgLisa Bisihholz METALWORKING INSTRUCTOR Work Phone: [facility] HospitalQobrpiqcpc82-42-3120 16:07-0400Diastolic blood leqjthjn82 mm[Hg]Kamilla Bisihholz METALWORKING INSTRUCTOR Work Phone: [facility] HospitalJcjesietst13-30-3901 16:07-0400Heart rate74 /min Kamilla Bisihholz METALWORKING INSTRUCTOR Work Phone: [facility] HospitalVjzkzubhkh24-53-8859 16:07-0400Respiratory rate18 /minLisa Bisihholz METALWORKING INSTRUCTOR Work Phone: [facility] HospitalHeecvnqkmc24-54-7747 16:07-2306ZyP0% (BldA) [Mass fraction]98 %Kamilla Bisihholz METALWORKING INSTRUCTOR Work Phone: [facility] HospitalHgqmesoong60-70-7313 16:07-0400Systolic blood xyuebnvf619 mm[Hg]Kamilla Bisihholz METALWORKING INSTRUCTOR Work Phone: [facility] HospitalGskkelriin28-85-8085 17:00-0400Body mass index (BMI) [Ratio]34.51 kg/m2Lisa Bisihholz METALWORKING INSTRUCTOR Work Phone: [facility] HospitalZfmsveljje74-89-2895 17:00-0400Body temperature 98.49 [degF]Kamilla Aichholz METALWORKING INSTRUCTOR Work Phone: [facility] HospitalBniuamcdtm65-23-1527 17:00-0400Body ipqade00.98 kgLisa Aichholz METALWORKING INSTRUCTOR Work Phone: [facility] HospitalRszacesygr97-48-9755 17:00-0400Diastolic blood akggeuqk77 mm[Hg]Kamilla Renettaz METALWORKING INSTRUCTOR Work Phone: [facility] HospitalJlnddoisih53-95-0474 17:00-0400Heart rate76 /min Kamilla Stephanieholz METALWORKING INSTRUCTOR Work Phone: [facility] HospitalHczqbzjhty85-97-2449 17:00-0400Respiratory rate18 /minLisa Stephanieholz METALWORKING INSTRUCTOR Work Phone: [phone] [place], [place] [address]Cimilqqtpq00-14-3414 17:00-2429GsA0% (BldA) [Mass fraction]96 %Kamilla Stephanieholz METALWORKING INSTRUCTOR Work Phone: [facility] HospitalBlrhlgmvfx62-67-9300 17:00-0400Systolic blood zsqdxwfa299 mm[Hg]Kamilla Stephanieholz METALWORKING INSTRUCTOR Work Phone: 1([phone] [place], [place] [address]Dmxqbcihmo97-60-9565 17:54-0500Body cucktm145.6 cmLisa Stephanieholz METALWORKING INSTRUCTOR Work Phone: [phone]01-15-2025 17:54-0500Body mass index (BMI) [Ratio]35.25 kg/m2Lisa Stephanieholz METALWORKING INSTRUCTOR Work Phone: [phone] [place], [place] [address]Sjfsgfrths73-86-9168 17:54-0500Body temperature 98.29 [degF]Kamilla Stephanieholz METALWORKING INSTRUCTOR Work Phone: 1(861)379-[address] [place], [place] [address]Nlhaxkxjle33-74-6511 17:54-0500Body xemzdu89.07 kgLisa Brownholz METALWORKING INSTRUCTOR Work Phone: [phone])[address] [address]-15-2025 17:54-0500Diastolic blood ozwmfcsp94 mm[Hg]Kamilla Stephanieholz METALWORKING INSTRUCTOR Work Phone: [phone] [place], [place] [address]Qdtenpzdhd64-47-0214 17:54-0500Heart rate80 /min Kamilla Bisihholz METALWORKING INSTRUCTOR Work Phone: [address] [address]Toiceekvix20-44-6698 17:54-0500Respiratory rate18 /minLisa Stephanieholz METALWORKING INSTRUCTOR Work Phone: [phone] [place], [place] [address]25 17:54-5143KkL3% (BldA) [Mass fraction]99 %Kamilla Abdi METALWORKING INSTRUCTOR Work Phone: [facility] HospitalWhzqtlwave94-14-7174 17:54-0500Systolic blood pbkeqfjj303 mm[Hg]Kamilla Abdi METALWORKING INSTRUCTOR Work Phone: [facility] HospitalTktyhcyzop58-50-6520 15:27-0500Blood Pressure LocationAurora Orzech [facility]11-05-2024 15:27-0500Diastolic blood womgxnmw92 mm[Hg]Sena Orzech [facility]11-05-2024 15:27-0500Heart rate79 /minAurora Orzech [facility]11-05-2024 15:27-0500Systolic blood mfgiqeog496 mm[Hg]Sena Orzech [facility]10-14-2024 18:09-0400Body .6 Debraanthony Abdi METALWORKING INSTRUCTOR Work Phone: [facility] HospitalKpacvppyxq60-47-3102 18:09-0400Body mass index (BMI) [Ratio]35.28 kg/m2Adali Abdi METALWORKING INSTRUCTOR Work Phone: [facility] HospitalVobisjxeib23-37-6554 18:09-0400Body temperature 98.8 [degF]Kamilla Abdi METALWORKING INSTRUCTOR Work Phone: [facility] HospitalDpjhsyyjas96-76-4312 18:09-0400Body .16 kgAdali Abdi METALWORKING INSTRUCTOR Work Phone: [facility] HospitalSfnzebprem16-50-4496 18:09-0400Diastolic blood fjkqwemu46 mm[Hg]Kamilla Abdi METALWORKING INSTRUCTOR Work Phone: [facility] HospitalKhenixxqli47-72-6450 18:09-0400Heart rate87 /min Kamilla Patton METALWORKING INSTRUCTOR Work Phone: [facility] HospitalGmmlbyeuvm36-75-9445 18:09-0400Respiratory rate18 /minKamilla Patton METALWORKING INSTRUCTOR Work Phone: [facility] HospitalKqwoktgpba90-33-9701 18:09-1237LcD4% (BldA) [Mass fraction]97 %Kamilla Patton METALWORKING INSTRUCTOR Work Phone: [facility] HospitalGstnkkftce87-46-0649 18:09-0400Systolic blood ohlsacis711 mm[Hg]Kamilla Patton METALWORKING INSTRUCTOR Work Phone: [facility] HospitalIqxjfcncnb19-60-3296 15:53-0400Body ipyrzy320.6 cmFetisha Pace METALWORKING INSTRUCTOR Work Phone: [facility] CenterBnbdeejqav60-74-9058 15:53-0400Body mass index (BMI) [Ratio]34.86 kg/m1Tuigrlatisha Robisongel METALWORKING INSTRUCTOR Work Phone: [facility] HospitalSofehxfbwj81-09-5810 15:53-0400Body gikqzc07.98 kgFetisha Robisongel METALWORKING INSTRUCTOR Work Phone: [facility]OSaint [facility] CenterHxffqpgncp77-02-8003 15:53-0400Diastolic blood mlxguyeo17 mm[Hg]Mohsen Pace METALWORKING INSTRUCTOR Work Phone: [facility]OSaint [facility] CenterJgnyfelulv42-36-3715 15:53-0400Systolic blood xyycufgx166 mm[Hg]Mohsen Enriquetagel METALWORKING INSTRUCTOR Work Phone: [facility] HospitalVywmfonzvx58-42-5371 13:13-0400Body zmycaz559.1 cmSelect [facility] [place]04-24-2024 13:13-0400Body mass index (BMI) [Ratio]34.1 kg/v9FgnnenacmSelect Medical [facility], [place]04-24-2024 13:13-0400Body wyzuoa41.98 kgSelect [facility] [place]02-06-2024 15:47-0500Body height 167.6 cmZonia Chambers DPM Work Phone: [facility] HospitalZuviruydlu93-74-8954 15:47-0500Body mass index (BMI) [Ratio]34.22 kg/r6FtddxduZonia Chambers DPM Work Phone: [facility] HospitalZrfxkavjoz47-00-6329 15:47-0500Body hocjzr54.16 kgZonia Chambers DPM Work Phone: [facility] HospitalXubogxsxzm44-39-2195 14:59-0400Blood Pressure LocationAnand KRUEGER [facility]10-16-2023 14:59-0400Diastolic blood tlazyfkd67 mm[Hg]Anand KRUEGER [facility]10-16-2023 14:59-0400Heart rate80 /minAnand KRUEGER [facility]10-16-2023 14:59-0400Respiratory rate16 /minAannd KRUEGER [facility]10-16-2023 14:59-0400Systolic blood ozvdkmbz397 mm[Hg]Anand KRUEGER [facility]07-19-2023 09:18-0400Diastolic blood mm[Hg][facility] [place]07-19-2023 09:18-0400Heart rate69 /[facility]07-19-2023 09:18-0400Respiratory rate16 /[facility]07-19-2023 09:18-8040IyA2% (BldA) [Mass fraction]98 %[facility] [place]07-19-2023 09:18-0400Systolic blood mm[Hg][facility] [place]07-19-2023 07:14-0400Body pddobu888.1 cmSelect [facility] [place]07-19-2023 07:14-0400Body kjtoethhoko23.6 [degF][facility] [place]07-19-2023 07:14-0400Body .45 kgSelect [facility] [place]06-01-2023 15:00-0400Body jibzup164 mgSelect [facility] [place]06-03-2022 09:15-0400Diastolic blood ivwqbyrp04 mm[Hg]DO Luis M Juarez Work Phone: 1(121)775-[address] [place], [place] 9973806-03-2022 09:15-0400 Heart rate80 /Ozzie Juarez Work Phone: 1(964)088-[address] [place], [place] 9973806-03-2022 09:15-0400 Respiratory rate20 /Ozzie Juarez Work Phone: 1(967)110-[address] [place], [place] 9973806-03-2022 09:15-0400 SaO2% (BldA) [Mass fraction]100 %DO Luis M Juarez Work Phone: 1(828)8-[address] [place], [place] 9973806-03-2022 09:15-0400 Systolic blood lvmiwbbe903 mm[Hg]DO Luis M Juarez Work Phone: 1(089)[address] [place], [place] 9973806-03-2022 07:15-0400 Body bhriqr307.37 cmDO Luis M Juarez Work Phone: 1(539)9-[address] [place], [place] 9973806-03-2022 07:15-0400 Body mass index (BMI) [Ratio]32.8 kg/m2DO Luis M Juarez Work Phone: 0(812)0-[address] [place], [place] 9973806-03-2022 07:15-0400 Body cquyrzldspr70.1 [degF]DO Luis M Juarez Work Phone: 1(979)3-[address] [place], [place] 9973806-03-2022 07:15-0400 Body .71 kgDO Luis M Juarez Work Phone: 1([phone] [place] [address] Encounters Encounter DateEncounter TypeCare ProviderFacilityStart: 58-80-8501mxjjxbshrb Sena X OrzechFacility:[facility] BellevueStart: 01-03-2025 End: 02-23-8868xtphgudjgdKcmh Shani Ligia SHEET METAL ERECTOR-CNPFacility:[facility] MainStart: 12-29-2024 End: 76-88-5314efncukbikiYEMWZ MCCLENDONFacility:[facility] Hospitaltart: 12-04-2024 End: 64-42-0203vmrcrvnuxxDvrn J Aichholz METALWORKING INSTRUCTOR-C Work Phone: [facility] Work Phone: Start: 12-04-2024 End: 30-95-9062Dfoiqtl encounter procedureLisa Elizabeth Patton METALWORKING INSTRUCTOR-C-[facility] Work Phone: Start: 11-20-2024 End: 51-78-7848dxuhytlpafDkrs Jo Aichholz SHEET METAL ERECTOR-CNPFacility:[facility] Main Start: 11-04-2024 End: 11-68-5030Tmukjnbhj Result EncounterLisa Bisihholz METALWORKING INSTRUCTOR Work Phone: [facility] External Department UnsolicitedStart: 11-04-2024 End: 89-65-0128Jsiwbmokl Result EncounterLisa Bisihholz METALWORKING INSTRUCTOR Work Phone: [facility] External Department UnsolicitedStart: 10-17-2024 End: 13-09-5893xaasfzrpcpHegj J Aichholz Work Phone: [facility] Work Phone: Start: 10-17-2024 End: 04-38-7474Ugxpaxt encounter procedureAgnes Rodriguez SHEET METAL ERECTOR-[facility] Work Phone: Start: 10-14-2024 End: 00-90-0135Tyjxdvcur department patient visitLisa Patton Work Phone: [phone]-Unbrsdzhn Room Work Phone: Start: 10-12-2024 End: 09-22-8865Hlzwqmjgg department patient visitLisa Patton Work Phone: [phone]-Pmspvhmhw Room Work Phone: Start: 09-26-2024 End: 40-03-0500lpzejkefgdDSJZ AICHHOLZNot AvailableStart: 09-26-2024 End: 10-91-3243Bqvohw outpatient visit 25 minutesLisa Aichholz METALWORKING INSTRUCTOR Work Phone: noms CWM FMComment on above:Chest pain in adult (Primary Dx); Morbid (severe) obesity due to excess calories ([facility]-HCC); Gastro-esophageal reflux disease without esophagitisStart: 09-26-2024 End: 72-97-5411Kivlbx flowsheetLisa Aichholz METALWORKING INSTRUCTOR Work Phone: noms CWM FMStart: 09-26-2024 End: 22-57-2505Ndoojg flowsheetLisa Aichholz METALWORKING INSTRUCTOR Work Phone: noms CWM FMStart: 08-30-2024 End: 77-54-0558Jhrwbi outpatient visit 25 minutesLisa Aichholz METALWORKING INSTRUCTOR Work Phone: noMS CWM FMComment on above:Gastro-esophageal reflux disease without esophagitis (Primary Dx); Pulmonary hypertension, unspecified (HCC); Morbid (severe) obesity due to excess calories (CMS-HCC); Abnormal kidney functionStart: 08-30-2024 End: 07-59-2264fffuqmyateXXJF AICHHOLZNot AvailableStart: 08-30-2024 End: 78-46-6182Lqyufb flowsheetLisa Aichholz METALWORKING INSTRUCTOR Work Phone: noms CWM FMStart: 08-30-2024 End: 29-58-9573Kvthvp flowsheetLisa Aichholz METALWORKING INSTRUCTOR Work Phone: noms CWM FMStart: 06-06-2024 End: 38-73-2920dbqgigwoejRKRO HILLNot AvailableStart: 04-19-2024 End: 67-80-7479Rqufxx OnlyLisa Aichholz METALWORKING INSTRUCTOR Work Phone: n[facility] CWM FMComment on above:Hyperglycemia (Primary Dx) Abnormal kidney function (Primary Dx)Start: 04-15-2024 End: 50-97-0756Pdywpqqtw Result EncounterKamilla Patton METALWORKING INSTRUCTOR Work Phone: noms External Department UnsolicitedStart: 04-15-2024 End: 94-05-4059Xduecywhz Result EncounterKamilla Patton METALWORKING INSTRUCTOR Work Phone: noms External Department UnsolicitedStart: 03-29-2024 End: 73-13-1391Uqkqqthr preventive med est patient 40-64yrsLisa Jacksonkasie METALWORKING INSTRUCTOR Work Phone: n[facility] CWM FMComment on above:Encounter for annual wellness visit (Primary Dx); Morbid (severe) obesity due to excess calories (CMS/HCC); Gastro-esophageal reflux disease without esophagitis; Body mass index (BMI) 35.0-35.9, adult; Pulmonary hypertension, unspecified (CMS/HCC); Gastroesophageal reflux disease without esophagitisStart: 03-29-2024 End: 14-15-7508agcfflnvetJKEH AICHHOLZNot AvailableStart: 03-29-2024 End: 71-16-9836Epnxaz flowsheetKamilla Jacksonz METALWORKING INSTRUCTOR Work Phone: n[facility] CWM FMStart: 03-29-2024 End: 73-21-9077Lnrcwk flowsheetKamilla Jacksonz METALWORKING INSTRUCTOR Work Phone: n[facility] CWM FMStart: 03-29-2024 End: 78-94-3301Kllaaxu encounter procedureKamilla Patton METALWORKING INSTRUCTOR Work Phone: noms HealthcareStart: 02-23-2024 End: 57-20-6729HwercaZifb Aichholz METALWORKING INSTRUCTOR Work Phone: n[facility] CWM FMComment on above:Gastroesophageal reflux disease without esophagitisStart: 01-18-2024 End: 42-58-4511faehghfjszQgxhyc X OrzechFacility:EU BellevueStart: 01-18-2024 End: 05-41-5802Cvhzkyl encounter procedureAurora X Orzech [facility] start: 12-27-2023 End: 37-46-3415Gsnucn outpatient visit 15 minutesLisa Mathewstommy METALWORKING INSTRUCTOR Work Phone: noms CWM FMComment on above:Gastroesophageal reflux disease without esophagitis (Primary Dx); Pulmonary hypertension, unspecified (CMS/HCC); Obesity (BMI 30-39.9)Start: 12-27-2023 End: 56-71-8669ianfnysixlFQYW AICHHOLZNot AvailableStart: 12-27-2023 End: 29-35-3248Lndcpu flowsheetLisa Aichholz METALWORKING INSTRUCTOR Work Phone: n[facility] CWM FMStart: 12-27-2023 End: 45-51-4693Nxieaw flowsheetLisa Aichholz METALWORKING INSTRUCTOR Work Phone: n[facility] CWM FMStart: 11-10-2023 End: 80-70-1067Juxqgn outpatient visit 25 minutesFelicia C Enriquetagel METALWORKING INSTRUCTOR Work Phone: noms PCF NEUROLOGYComment on above:Trigeminal neuralgia (CMS/HCC); Nonintractable headache, unspecified chronicity pattern, unspecified headache typeStart: 11-10-2023 End: 04-15-5542ctdvjgpgsbFDXYGBD C WINDNAGELNot AvailableStart: 10-22-2023 End: 06-20-5137wrrwbrdnarYrvzwSandeep Lund MD Work Phone: GastroenterologyComment on above:Gastroesophageal reflux disease, unspecified whether esophagitis present (Primary Dx)Start: 10-22-2023 End: 41-09-4059Lisepvswgjzk consultation with Bryan Lund MD Work Phone: GastroenterologyStart: 07-07-2023 End: 48-51-5929ldrhnydvduPiparakhpFisher-[facility]itus [facility] Work Phone: Start: 07-07-2023 End: 32-75-6470Aezgugo encounter procedureFormerly [facility], [facility] Gastroenterology Work Phone: Start: 76-31-6136UcgqjbUphs Aichholz NP Work Phone: n[facility] CWM FMComment on above:Gastroesophageal reflux disease without esophagitisStart: 04-20-2023 End: 25-38-8094Anlrsm outpatient visit 15 minutesZonia Chambers DPM Work Phone: NOAP PODIATRYComment on above:Onychomycosis (Primary Dx); Nail dystrophy; Pain in toes of both feetStart: 04-06-2023 End: 05-86-7949bwkvkzplarWCDK R BOVAProMedica Lima Memorial Hospitaltart: 01-19-2023 End: 59-49-8623Nljsdml encounter procedureFetisha Pace [facility] Start: 12-28-2022 End: 81-74-2523Ipasowo encounter procedureAnand KRUEGER [facility] Gerardo start: 09-30-2022 End: 33-45-4086Avgqvguoo to same day surgery [facility] Work Phone: Start: 09-30-2022 End: 78-42-8007mqgiksazdvDYY [facility] Work Phone: Start: 08-31-2022 End: 42-88-3787uhuodqiffrAZF [facility] Work Phone: Start: 08-31-2022 End: 13-84-3097Qnxsodk encounter procedure[facility] Work Phone: Start: 08-13-2022 End: 33-22-8083mshrtnlexnPUR [facility] Work Phone: start: 08-13-2022 End: 07-22-7765Icijwocx [facility] Main Central Work Phone: Start: 08-11-2022 End: 75-28-7246Kqa-admission assessmentMohsen Pace [facility] Start: 27-41-9078Pfrunanfb for preprocedural laboratory examinationDR ANAND KRUEGER .[facility]Start: 08-07-2022 End: 65-30-2290btnkgsldywME ANAND KRUEGER .Facility:F4Wopmc: 08-07-2022 End: 76-76-0420Gaxrdxcxo for preprocedural laboratory examinationDR ANAND KRUEGER .Facility:J5Yibry: 07-29-2022 End: 76-40-7403wqamnyzsexCV ANAND KRUEGER .Facility:L9Lnksn: 07-27-2022 End: 62-74-2601eflxlkxblmPDP [facility] Work Phone: Start: 07-27-2022 End: 48-49-0279Atwbpwk encounter [facility]-MRI Main Central Work Phone: Start: 07-08-2022 End: 61-56-3128lfaeisopaaXUW KAMILLA Brewercility:P7Grjrs: 86-87-3004Kfnlbmjbz for preprocedural cardiovascular examinationDR ANAND KRUEGER .[facility]Start: 46-21-3206Stsejwewn for preprocedural laboratory examinationDR ANAND KRUEGER .[facility]: 07-02-2022 End: 32-54-0553yzleajgsyuJL ANAND KRUEGER .Facility:L7Sdfdp: 06-29-2022 End: 17-12-7570chlbglshmcXK ANAND KRUEGER .Facility:O0Vztdd: 06-29-2022 End: 62-52-4639Blwmccpyb for preprocedural cardiovascular examinationDR ANAND KRUEGER .Facility:L4Bmvce: 06-20-2022 End: 19-19-2861tkdgmiimilYS ANAND KRUEGER .Facility:P1Hbays: 06-16-2022 End: 34-74-3493vwhwwpgfmrIWI KAMILLA AICHHOLZFacility:G1Mtugq: 06-03-2022 End: 31-99-9183aiquipizwvFFC KAMILLA AICHHOLZFacility:E5Zppkt: 05-23-2022 End: 42-71-5046rdedexxuiqKMI KAMILLA AICHHOLZFacility:U0Idwbl: 12-22-2021 End: 24-12-3266tueqnspeafUKTMMN Meghana FAWWADFacility:M0Pnngb: 08-15-2021 End: 03-97-8743Vwipshpcb to same day surgery centerDO Luis M Baljinderbob Work Phone: [facility]-Digestive HealthStart: 08-13-2021 End: 05-43-2168Tcgdvlc encounter procedureDO Luis M Baljinderbob Work Phone: [facility] Lgo-Obd-Scfqidui Testing Procedures DateProcedureProcedure DetailPerforming ClinicianStart: 27-83-2823TVB HEMOGLOBIN W0UTlvn Aichholz METALWORKING INSTRUCTOR Work Phone: Start: 96-01-0443RB of soft tissues of neck with contrastLisa Aichholz Work Phone: Start: 75-88-2416MCR CBC WITH AUTO DIFFLisa Aichholz METALWORKING INSTRUCTOR Work Phone: Start: 58-05-3784JgzyaqlmjwuXgtd Aichholz METALWORKING INSTRUCTOR Work Phone: Start: 08-79-8632ApijqkgtjbkecsqctkhnargoweJhado: 47-19-8353Eozzuhgvdflr gastric emptying studyStart: 68-66-3493Hfrtw cystoscopy Anand KRUEGER Start: 91-90-9432AGR of headStart: 07-02-2022 Extracorporeal shockwave lithotripsy of calculus of kidneyPatrick PATI Start: 84-88-1132NupnicwevfqRmrlnqj Clarke DPM Work Phone: Start: 33-41-1748KuwhobmyixynapweubaaefgrdmZM Luis M Juarez Work Phone: Start: 12-15-0304IvkzoahozdeUecpysx Clarke DPM Work Phone: Start: 98-59-7570Octsnhqavbv observation [Identifier] in Cervix by Cyto stainZonia Chambers DPM Work Phone: Start: 25-53-9489Syfid 1996 panel - Serum or Plasma Mendez Lund MD Work Phone: CholecystectomyFelicia Windnagel H/O: surgeryHx of ovarian cystectomyLisa Abdi OROZCO Work Phone: HysterectomyFelicia Windnagel Plan of Treatment DateCare ActivityDetailAuthorStart: 87-58-5849Qgpqiirsm for malignant neoplasm of colonNOMS HealthcareStart: 46-88-3747Rksvspbar for malignant neoplasm of breastMammogramNOMS HealthcareStart: 12-04-2024 End: 54-32-7431Gaehqlc encounter acdcfhdpj55/22/2025 5:30 PM EDT Office Visit [facility] [address] [place] [address] Kamilla Patton NP [address] [place] [id number] [facility] FMStart: 35-33-9645Pfxfxsbck vaccinationNOMS HealthcareStart: 11-06-2024 End: 16-45-0292Rebpzhx encounter jxqlwgylv44/25/2025 6:30 PM EDT Office Visit [facility] [address] [place] [address] Kamilla Patton NP [address] [place] [address] [facility] CWM FMStart: 09-26-2024 End: 24-75-8127ZQM 12 leadECG 12 lead ECG Routine Chest pain in adult Expected: 09/26/2024 (Approximate), Expires: 09/26/2025VT HealthcareComment on above: Expected: 09/26/2024 (Approximate), Expires: 09/26/2025Start: 09-26-2024 End: 35-84-6365EK Chest 2 ViewsXR chest 2 views Imaging High Priority Chest pain in adult Expected: 09/26/2024, Expires: 09/26/2025[facility] Healthcare Work Phone: Comment on above:Expected: 09/26/2024, Expires: 09/26/2025Start: 08-30-2024 End: 90-04-8115Boygcxu encounter procedureNOVT CWM FMComment on above:Pulmonary hypertension, unspecified (HCC) (Primary Dx); Gastro-esophageal reflux disease without esophagitis; Morbid (severe) obesity due to excess calories ([facility]-HCC)Start: 08-30-2024 End: 33-06-5971Qhtdc metabolic 1998 panel - Serum or PlasmaBasic metabolic panel Lab Routine Abnormal kidney function Expected: 08/30/2024 (Approximate), Expir es: 08/30/2025 Healthcare Work Phone: Comment on above:Expected: 08/30/2024 (Approximate), Expires: 08/30/2025Start: 08-30-2024 End: 28-84-7077Odpxficadfpt/Creatinine panel in random UrineMicroalbumin / creatinine, urine ratio Lab Routine Abnormal kidney function Expected: 08/30/2024 (Approximate), Expires: 08/30/2025NOVT HealthcareComment on above: Expected: 08/30/2024 (Approximate), Expires: 08/30/2025Start: 08-30-2024 End: 37-10-9001Soxahxmljx complete panel - UrineUrinalysis with reflex microscopic (clean catch) Lab Routine Abnormal kidney function Expected: 08/13 (Approximate), Expires: 08/30/2025NOMS HealthcareComment on above: Expected: 08/30/2024 (Approximate), Expires: 08/30/2025Start: 06-06-2024 End: 52-28-6627Wpbvztq encounter lxzaiqzxo17/25/2025 4:20 PM EDT Office Visit [facility] [address] [place] [address] Lina Conner PA [address] [place] [address] [facility] SANDERSONtart: 25-50-2859Zzhig panelLipid ScreeningSouthview Medical Center Start: 51-20-3794Rullrplzy vaccinationInfluenza Vaccine (#1)[facility] Healthcare Comment on above:Postponed from 11/14/2023 (Patient Refused)Start: 05-03-2024 End: 79-76-4333Ctjxq metabolic 1998 panel - Serum or PlasmaBasic metabolic panel Lab Routine Abnormal kidney function Expected: 05/03/2024 (Approximate), Expir es: 04/19/2025NOVT Healthcare Work Phone: Comment on above:Expected: 05/03/2024 (Approximate), Expires: 04/19/2025Start: 05-03-2024 End: 55-97-7290Oyhypensfd A1c/Hemoglobin.total in BloodHemoglobin A1c Lab Routine Hyperglycemia Expected: 05/03/2024 (Approximate), Expires: 04/19/2025 [facility] Work Phone: Comment on above:Expected: 05/03/2024 (Approximate), Expires: 04/19/2025Start: 04-24-2024 End: 58-53-5502Nlbrdrp encounter procedureNOMS PCF NEUROLOGYStart: 03-29-2024 End: 42-37-2776Gcccjee encounter procedureNOMS CWM FMComment on above:Pulmonary hypertension, unspecified (CMS/HCC) (Primary Dx); Morbid (severe) obesity due to excess calories (CMS/HCC); Gastro-esophageal reflux disease without esophagitis; Body mass index (BMI) 35.0-35.9, adult; Encounter for annual wellness visitStart: 03-29-2024 End: 50-60-3272UHL W Auto Differential panel - BloodCBC and differential Lab Routine Encounter for annual wellness visit Expected: 03/29/2024 (Approximate), Expires: 03/29/2025NOVT HealthcareComment on above:Expected: 03/29/2024 (Approximate), Expires: 03/29/2025Start: 03-29-2024 End: 32-25-4230Chydiwysammtd metabolic 2000 panel - Serum or PlasmaComprehensive metabolic panel Lab Routine Encounter for annual wellness visit Expected: 03/29/2024 (Approximate), Expires: 03/29/2025[facility] HealthcareComment on above: Expected: 03/29/2024 (Approximate), Expires: 03/29/2025Start: 03-29-2024 End: 18-23-0778Jasrh 1996 panel - Serum or PlasmaLipid panel Lab Routine Encounter for annual wellness visit Expected: 03/29/2024 (Approximate), Expires: 03/29/2025[facility] HealthcareComment on above:Expected: 03/29/2024 (Approximate), Expires: 03/29/2025Start: 03-29-2024 End: 85-56-8453Rvnqjfljltd [Units/volume] in Serum or PlasmaTSH Lab Routine Encounter for annual wellness visit Expected: 03/29/2024 (Approximate), Expires: 03/29/2025[facility] Work Phone: Comment on above:Expected: 03/29/2024 (Approximate), Expires: 03/29/2025Start: 03-29-2024 End: 99-35-0435Nsfskkfacv complete panel - UrineUrinalysis with reflex microscopic (clean catch) Lab Routine Encounter for annual wellness visit Exp ected: 03/29/2024 (Approximate), Expires: 03/29/2025[facility] HealthcareComment on above:Expected: 03/29/2024 (Approximate), Expires: 03/29/2025Start: 01-13-2024 Influenza vaccinationInfluenza Vaccine (#1)[facility] HealthcareComment on above: Postponed from 11/14/2023 (Patient Does Not Have Time)Start: 12-27-2023 End: 95-08-9333Zumuytx encounter procedureNOMS CWM FMComment on above:Pulmonary hypertension, unspecified (CMS/HCC)Start: 84-02-3901Pzlsevadh vaccination Influenza Vaccine (#1)[facility]: 49-38-3367Fwkoozyyn for malignant neoplasm of breastMammogramNOMS HealthcareStart: 05-17-2023 End: 48-14-0413Mfpliyt encounter nsgoixocb34/04/2024 7:00 PM EST Office Visit [facility] [address] [place] [address] Kamilla Patton, METALWORKING INSTRUCTOR [address] [place] [address] [facility] CW FMStart: 04-29-2023 End: 81-50-4302Amlaoie encounter erdmucsjq45/15/2024 6:00 PM EST Office Visit [facility] [address] [place] [address] Kamilla Patotn, METALWORKING INSTRUCTOR [address] [place] [address] N[facility] CW FMStart: 27-36-1847Cjenodeoj for malignant neoplasm of cervixPap SmearNOVT HealthcareStart: 56-49-1136Eafkk-19 Vaccine ( season)Covid-19 Vaccine ( season)[facility]art: 09-30-2022 [facility]art: 52-88-8513LD Unspecified body region [facility]art: 21-16-5977KMU of headMR head/brain wo/w [facility] Hospitaltart: 40-73-1827Vcrsiucp ScreeningDiabetes ScreeningAdena Pike Medical Centertart: 48-66-1090Exsgimit Vaccine (1 of 2)Shingrix Vaccine (1 of 2)[facility]art: 18-66-8402Loutxklqx for malignant neoplasm of breastMammogram ScreeningAdena Pike Medical Centertart: 67-36-9564Hsvka microalbumin profileDTaP,Tdap,Td Vaccine (2 - Td or Tdap)[facility]art: 68-82-7760Wgzzzgbej for malignant neoplasm of colonAdena Pike Medical Centertart: 84-46-9954Saicnkwcw for malignant neoplasm of cervixHPV/CotestNOMS Healthcare Start: 85-07-5548Pelsejxpf for malignant neoplasm of cervixCervical Cancer ScreeningAdena Pike Medical Centertart: 24-04-3609Xpylloyld B Vaccine (1 of 3 - 19+ 3- dose series)Hepatitis B Vaccine (1 of 3 - 19+ 3-dose series)[facility] Start: 58-49-7797Hsullwc ScreeningAnxiety ScreeningAdena Pike Medical Centertart: 64-39-4470Iyjbonkpnz ScreeningDepression ScreeningAdena Pike Medical Centertart: 70-60-9850Kymphespe C screeningHepatitis C ScreeningAdena Pike Medical Centertart: 03-31-9081UEK screeningHIV ScreeningAdena Pike Medical Centertart: 85-77-0092Uxfhzewgc for malignant neoplasm of colonLAYTON [facility] HealthcareBilirubin measurementSelect Medical [facility], BeachwoodBody weightSelect Medical [facility] Rehabilitation Hospital, BeachwoodCalcium carbonate/Total in [facility] TrumbullCalcium hydrogen phosphate dihydrate/Total in [facility] TrumbullCalcium oxalate monohydrate/Total in [facility] TrumbullCalcium phosphate levelSelect Medical [facility] Rehabilitation Hospital, BeachwoodCalculus analysis with calculus photography [Interpretation] in [facility] TrumbullCalculus analysis, qualitativeSelect Medical [facility] Hospital, BeachwoodCalculus analysis, quantitativeSelect Medical [facility] Rehabilitation Hospital, BeachwoodCalculus analysis, quantitative, infrared spectroscopySelect Medical [facility] Hospital, BeachwoodCellular material [Mass/mass] of Stone by EstimatedSelect Medical [facility] Rehabilitation Hospital, BeachwoodCholesterol [Mass/volume] in Serum or PlasmaSelect Medical [facility] Rehabilitation Hospital, BeachwoodCystine measurementSelect Medical [facility], BeachwoodDetermination of calculus chemical compositionSelect Medical [facility] Hospital, BeachwoodEvaluation procedureSelect Medical [facility], BeachwoodHydroxyapatite [Energy Difference] in 24 hour Urine [facility], BeachwoodLaboratory data interpretationSelect Medical [facility], BeachwoodNewberyite/Total in [facility] TrumbullPatient EducationBethesda North Hospital Ctr Work Phone: Patient [facility] Work Phone: Specimen source subject [Type][facility], BeachwoodTriamterene Western Reserve HospitalTriple phosphate/Total in [facility] Immunizations Immunization DateImmunizationNotesCare SbyiejxkTkprgeej75-10-0316owdsczxuq virus vaccine, unspecified formulationJeaaron Chambers DPM Work Phone: NOSaint John's Regional Health CenterRkaocwaitg85-89-8131tmgefzugw, unspecified formulationAurora Orzech [facility]07-28-2022SARS-CoV-2 mRNA (ifzfrbsaibr-kymg-blhhrsk) vaccineFelicia Windnagel [facility]12-02-2021COVID-19 mRNA, Comirnaty (Pfizer)DO Luis M Juarez Work Phone: [facility] Beachwood02-24-2021COVID-19 mRNA, Comirnaty (Pfizer)DO Luis M Bruin [employer] Work Phone: [facility], BeachwoodComment on above: Result Comment: 2022-06-22: [id number]-KbO-0 (COVID-19) mRNA BNT-162b2 vaxFelicia Windnagel [facility] HospitalComment on above:Result Comment: 2022-06-22: [id number]-38 mRNA, Comirnaty (Pfizer)DO Luis M Bruin [employer] Work Phone: [facility], BeachwoodComment on above: Result Comment: 2022-06-22: [id number] toxoid, reduced diphtheria toxoid, and acellular pertussis vaccine, adsorbedFelicia Windnagel [facility] Payers DatePayer CategoryPayerPolicy [id number] Cross Blue ShieldBCBS Member Subscriber Plan / Payer (Effective 2022-Present) Name: Cinthia Badillo Relation to Subscriber: Spouse Name: KOBY BADILLO Date of : 1971 (Home) Address: [address] [place] [address] Payer ID: Not on file Type: Not on file Address: [facility] [address] [place] [id number] 1.2.840.656621.1.13.693.2.7.3.644[id number] 2.0.1.464802.3.57[id number] 2.0.1.259353.3.57[id number] 2.0.1.839429.3.57[id number] 2.840.1.176656.3.57[id number] 2.160.1.282025.3.57[id number] 2.840.1.328900.3.57[id number] 2.16840.1.003585.3.57[id number] 2..840.1.553779.3.579.[id number] 2..840.1.205758.3.579.2.89298-15-7337Wqadead1364587 2.840.1.761616.3.579.2.39420-83-3747Pnhkgjz5525348 2.840.1.471158.3.57[id number] 2.0.1.180482.3.579.[id number] 2..1.648874.3.579.[id number] 2..1.958104.3.579.2.060129-37-5622Jdvcptm2472577 2..1.499315.3.579.2.652843-66-7770Vllmbfr2380529 2.84.1.327961.3.579.2.110098-71-4638Lodtfiy5913335 2..1.066548.3.579.2.359256-62-5672Wauzfie7942530 2.0.1.967809.3.57[id number] 2.0.1.741405.3.579.2.84146-64-2765Ipxqdbl35117740 2.840.1.259778.3.579.2.440[id number] 2.840.1.426707.3.579.2.[id number] 2.0.1.443268.3.579.2.17621-70-0609Ujhadeg328039062 2..840.1.914850.3.579.2.56321-56-6743EqxlgjyRIT303U55423 14345342-5695-3l1l-[id number] 2..840.1.1[id number] 2..840.1.975341.3.579.2.531 Social History DateTypeDetailFacilityTobacco smoking status NHISUnknown if ever smokedCleveland Clinic Foundation Work Phone: Start: 58-18-7110Roh Assigned At [facility]ertart: 06-22-2022 End: 72-66-5006Dukruwk smoking statusNever smoked tobacco (finding)[facility] smoking statusNever [facility] Hospitaltart: 03-17-2023 End: 27-50-7310Nxc Assigned At [facility] Hospitaltart: 12-12-5100Kfxsxsg use and exposureSmokeless tobacco non-userNOMS Healthcare Start: 04-20-2023 End: 63-57-8954Dsobsem intakeEx-drinker (finding)[facility] HealthcareStart: 03-17-2023 End: 33-01-9512Sppyusz intakeNOMS HealthcareWithin the last year, have you been afraid of your partner or ex-partner?NoNOMS HealthcareAre you now , , , , never or living with a partner?MarriedNOMS HealthcareHow often to you have a drink containing alcohol?Monthly or lessNOMS HealthcareHow many standard drinks containing alcohol do you have on a typical day?1 or 2NOMS HealthcareHow often do you have 6 or more drinks on 1 occasion? NeverNOMS HealthcareDo you feel stress - tense, restless, nervous, or anxious, or unable to sleep at night because yourmind is troubled all the time - these days [OSQ]Only a littleNOMS Healthcare(I/We) worried whether (my/our) food would run out before (I/we) got money to buy more.Never trueNOMS HealthcareStart: 89-54-6054Tnnlmlp CommentmonthlyNOMS HealthcareStart: 32-21-4277Sncjvj identity Identifies as female gender (finding)[facility] HealthcareStart: 96-44-1546Maokxq orientationHeterosexual (finding)[facility] HospitalTobacco smoking status NHIS Tobacco smoking consumption unknownAdena Pike Medical Centertart: 56-36-3087Ocd Assigned At BirthNot on fileAdena Pike Medical CenterexFemale (finding)[facility], BeachwoodNEGATED: Highlighted [facility] Goals DatePatient GoalDesired Activity/State Functional Status DboxZbegtocpgyKqxwzvPcshufis79-71-4081Eoudcvresy StatusN/A[facility]10-16-2023Functional StatusN/A[facility] Clinical Notes 08-15-2021 to 12-29-2024 Note Date & AwoyFbodSwckcvwo01-14-1416 NoteHNO ID: [id number] Author: DINH COOL MD Service: ? Author Type: Fellow Type: Progress Notes Filed: 12/29/2024 12:29 Note Text: VIRTUAL VISIT This is a virtual visit using HIPAA compliant video platform. All issues as below were discussed and addressed but no physical exam was performed unless allowed by visual confirmation. If it was felt that the patient should be evaluated in clinic then they were directed there. Patient and/or parent(s) verbally consented to visit. I have communicated my name and active licensure. The patient's identity and physical location were verified at the time of this visit. Either the patient or their legal commissary representative has been informed of the risks and benefits of -- and alternatives to -- treatment through a remote evaluation and consents to proceed with the evaluation remotely. Headache and Facial Pain Section [facility] [place] Date: December 29, 2024 Patient Name: Cinthia Badillo Referring physician: No referring provider defined for this encounter Reason for Evaluation: Headaches and Facial Pain CC: Headaches HPI: Cinthia Badillo is a 54 YO F with PMH of episodic migraine headaches and trigeminal neuralgia presenting as NEW patient evaluation. Patient endorses longstanding history (>10 years) of episodic migrainous headaches for which she was previously under care of of local neurologist approximately 2 to 3 years ago she began developing episodic facial pain. She presents today to establish care in the setting of her prior neurologist moving locations. Regarding her episodic headaches: She denies prodromal and aura symptoms endorsing gradual onset of throbbing pain. Average intensity is a 6/10 with a typical duration of several hours occurring at a current frequency of 3-4 times a month. She endorses associated photophobia phonophobia and nausea. Worse with activity often triggered by stress weather changes and dehydration. Denied associated autonomic symptoms, positional changes and allodynia. Extremely responsive to ibuprofen. Starting in 2011 she began following with a local neurologist for these headaches and was started on amitriptyline with gradual titration to current dosage of 50 mg nightly. Initial frequency was several migraines per week. This frequency was reduced significantly to the current 3-4 times a month following the initiation of zonisamide approximately 2 years ago. It seems zonisamide was added after patient began experiencing episodic facial pain believed to be trigeminal neuralgia. Regarding her facial pain she notes always right sided predominantly V2 with involvement of V3 and occasional V1. Denied associated pain in the side or back of the head as well as sensory abnormalities. Denied electrical shocklike pain. Describes a dull ache predominantly in the V2 distribution occurring on average around 1 time per week lasting for several hours mild in severity. Also describes episodes of sharp pain within V2/V3 occurring 1-2 times per day lasting several minutes each. These episodes are typically triggered by wearing glasses, talking, chewing, cold air/wind. She is pain-free in between these episodes. Additionally she describes a significant flare this past September prompting 2 emergency room visits pain improved with migraine cocktail and a Medrol Dosepak . She was also prescribed baclofen and an unspecified dose to be taken as needed. She reports only taking it maybe once a month. FACIAL PAIN FEATURES Side: R Distribution: V2>V3; occasional V1 Any pain on side or back of head: Denied Character: Sometimes ache, sometimes stabbing Duration: Ache can last for hours; stabbing/sharp last minutes Pain-free between episodes: Yes Triggers: Talking, chewing, wind Sensory abnormalities: Denied Current Treatment: Amitriptyline 50 mg nightly, zonisamide 75 mg twice daily Tried Tegretol/Trileptal: Denied Prior procedures/outcome: Denied History of MS, Lyme's disease, facial rash: Denied History of dental/oral surgery, facial/plastic surgery: Denied Headache 1 Diagnosis: Episodic Migraine Onset: - Years Location: unilateral, right and left Quality/Description: throbbing Associated Symptoms: Photophobia: yes Phonophobia: yes Nausea: yes Vomiting: no Other symptoms: none Worse with activity: yes Number of migraine headache days/month: 4 Migraine headache severity: 6/10 Duration of headaches with treatment: Duration of attacks with treatment: hours. Current abortive treatment: Ibuprofen 600mg Triggers: stress, weather changes and dehydration Onset of headache to peak: gradual Positional changes: no Most common time of day for headache to begin: afternoon and evening Prodrome: none Aura: none Allodynia: no Current Medications: Zonisamide 75mg BID (2 years - ) Amitriptyline 50mg QHS (several years - ) Magnesium QHS for (more content not included)...[facility] 10-17-2024 Evaluation note* Diagnosis Onset Date Resolution Status Admit Date Migraine acuteAugust 2024 10:42amSleep disturbanceacuteAugust 2024 10:42am Trigeminal neuralgiaacuteAugust 2024 10:42amGERD without esophagitisacute December 04, 2024 5:29pm [facility] Work Phone: 1(603) 833-885808-02-2025 Radiology Diagnostic study [facility] [address] [place] [address] CT Scan Report Signed Patient: Cinthia Badillo MR#: [id number] : 1970 Acct:[id number] Age/Sex: 54 / F ADM Date: 5 Loc: ER Room: Type: [facility] ER Attending Dr: Copies to: Rajinder [...] nodes measuring up to 11 mm in shortaxis which may be inflammatory in nature. No [...] Gonzales M.D. 10/14/2024 4:15 PM Dictation Location: [facility]-- Transcribed By: ROOPA 10/14/241614 Dictated By: Mike Gonzales II, MD 10/14/24 160 Signed By: 10/14/24 161 [facility] Work Phone: 1(511) 283-176607-15-2025 History of Present illness Narrative* Kamilla Patton NP - 09/26/2024 5:14 PM EDTAssociated Problem(s): Gastro-esophageal reflux disease without esophagitis Recommendations: freq small meals, nothing to eat or drink at least 2 hours prior to bed, limit caffeine, alcohol, as well as spicy foods Meds to limit or avoid if possible: NSAIDS Elevate HOB if possible Current meds: pantoprazole BID- hold this Lengthy GERD hx trial of voquezna 20m po daily #6 samples (30 pills) lot [id number] exp 11/06 * Kamilla Patton NP - 09/26/2024 5:13 PM EDTAssociated Problem(s): Chest pain in adult Chest xray EKG Not reproducible Stress test and ECHO: 06/2023 * RAYRAY PULLIAM - 09/26/2024 4:00 PM EDT Pt has having pain on the left [...] now. Pt states her heart rate avg is70s (per her watch) pt does not notice a pattern- has been whenever. Pt states the pain goes from a0 to an 8 lasts for a few seconds and then she goes back to 0 on the pain scale. Pt last mammogram was 01/2024-normal Pt does perform self breast exams she states she does on occasions and not always monthly * Kamilla Patton NP - 09/26/2024 4:00 PM EDT Images from the original note were not [...] now. Pt states her heart rate avg is70s (per her watch) pt does not notice a pattern- has been whenever. Pt states the pain goes from a0 to an 8 lasts for a few [...] DAILY WITH 50 MG CAPS TO EQUAL 75MG zonisamide (ZONEGRAN) 50 mg, Oral, 2 times [...] not intractable, unspecified migraine type Palpitation Pancreatitis ([facility] 2018 Paresthesia Pelvic pain S/P laparoscopy Thickened endometrium Trigeminal neuralgia Past Surgical History: Procedure Laterality Date APPENDECTOMY 1991 or CHOLECYSTECTOMY HERNIA REPAIR 1974 HYSTERECTOMY 2019 ovaries still present, non cancerous KNEE ARTHROSCOPY W/ DEBRIDEMENT Right 1990 x2, 2009 LITHOTRIPSY OVARY SURGERY 1991 Ovarian Resection - [place] family history includes Arthritis in her mother; Breast cancer in her maternal grandmother; COPD inher father; Coronary artery disease in her father; Diabetes in her father and mother; Hearing loss in her mother; Heart attack in her father; Heart disease in her father; Hyperlipidemia in her fatherand mother; Hypertension in her father and mother; [...] po daily #6 samples (30 pills) lot [id number] exp 11/06 Morbid (severe) obesity due to [...] XR chest 2 views ECG 12 lead * Kamilla Patton NP - 09/26/2024 6:47 AM EDTAssociated Problem(s): Morbid (severe) obesity due to excess calories (CMS-HCC) Discussed with patient their BMI (actual, verses recommended). We have also discussed lifestyle modifications: attempts to perform physical activity as chronic conditions allow, also to monitor dietary intake: increasing protein/fruits/veggies and lowering carb intake (unless contraindicated). Limit sodas, juices, and sugary drinks. documented in this encounterCooper County Memorial [id number] Instructions* Patient Instructions* Kamilla Patton NP - 09/26/2024 4:00 PM EDT We will order cxr and EKG at [facility] Stop your current pantoprazole We will trial voquezna documented in this encounterCooper County Memorial [id number] History of Present illness Narrative* Kamilla Patton NP - 08/30/2024 5:30 PM EDTAssociated Problem(s): Abnormal kidney function Check basic, urine and micro * RAYRAY PULLIAM - 08/30/2024 5:00 PM EDT GERD on and off * Kamilla Patton NP - 08/30/2024 5:00 PM EDT Images from the original note were not [...] DAILY WITH 50 MG CAPS TO EQUAL 75MG zonisamide (ZONEGRAN) 50 mg, Oral, 2 times [...] not intractable, unspecified migraine type Palpitation Pancreatitis ([facility]) 2018 Paresthesia Pelvic pain S/P laparoscopy Thickened endometrium Trigeminal neuralgia Past Surgical History: Procedure Laterality Date APPENDECTOMY 1991 or CHOLECYSTECTOMY HERNIA REPAIR 1974 HYSTERECTOMY 2020 ovaries still present, non cancerous KNEE ARTHROSCOPY W/ DEBRIDEMENT Right 1990 x2, 2010 LITHOTRIPSY OVARY SURGERY 1991 Ovarian Resection - [place] family history includes Arthritis in her mother; Breast cancer in her maternal grandmother; COPD inher father; Coronary artery disease in her father; Diabetes in her father and mother; Hearing loss in her mother; Heart attack in her father; Heart disease in her father; Hyperlipidemia in her fatherand mother; Hypertension in her father and mother; [...] Primary As per ECHO on 06/2023 at [facility] No current symptoms Morbid (severe) obesity [...] (clean catch) Microalbumin / creatinine, urine ratio * Kamilla Patton NP - 08/30/2024 7:54 AM EDTAssociated Problem(s): Morbid (severe) obesity due to excess calories (CMS-HCC) Discussed with patient their BMI (actual, verses recommended). We have also discussed lifestyle modifications: attempts to perform physical activity as chronic conditions allow, also to monitor dietary intake: increasing protein/fruits/veggies and lowering carb intake (unless contraindicated). Limit sodas, juices, and sugary drinks. * Kamilla Patton NP - 08/30/2024 7:54 AM EDTAssociated Problem(s): Gastro- esophageal reflux disease without esophagitis Recommendations: freq small meals, nothing to eat or drink at least 2 hours prior to bed, limit caffeine, alcohol, as well as spicy foods Meds to limit or avoid if possible: NSAIDS Elevate HOB if possible Current meds: pantoprazole BID Lengthy GERD hx Elevated kidney function and we will recheck this Consider trial of voquezna * Kamilla Patton NP - 08/30/2024 7:54 AM EDTAssociated Problem(s): Pulmonary hypertension, unspecified (HCC) As per ECHO on 06/2023 at [facility] No current symptoms documented in this [facility]06-18-2025 Instructions* Patient Instructions* Kamilla Patton NP - 08/30/2024 5:00 PM EDT Recheck kidney function and urine test Consider a change to Voquezna documented in this [facility]01-15-2025 History of Present illness Narrative* Kamilla Patton NP - 03/29/2024 6:00 PM EST Images from the original note were not included. Cinthia Badillo is a 54 y.o. female presents with chief complaint of Gastroesophageal reflux disease without esophagitis HPI: Diet:limited d/t GERD Activity: not a lot of formal exercise Mental Health Concerns:none Any hearing problems: none Any Vision problems: wears glasses, eye doctor yearly Any Hospitalizations in the last year: for change advisor: GI Concerns: Weight continues to go up, [...] DAILY WITH 50 MG CAPS TO EQUAL 75MG zonisamide (ZONEGRAN) 50 mg, Oral, 2 times [...] LITHOTRIPSY OVARY SURGERY 1991 Ovarian Resection - [place] family history includes Arthritis in her mother; Breast cancer in her maternal grandmother; COPD inher father; Coronary artery disease in her father; Diabetes in her father and mother; Hearing loss in her mother; Heart attack in her father; Heart disease in her father; Hyperlipidemia in her fatherand mother; Hypertension in her father and mother; [...] (CMS/HCC) As per ECHO on 06/2023 at [facility] No current symptoms Morbid (severe) obesity [...] Medications pantoprazole (ProtoNix) 40 MG EC tablet * Kamilla Patton NP - 03/29/2024 7:10 AM ESTAssociated Problem(s): Encounter for annual wellness visit Reviewed Ht/Wt/BMI Recommend eye exam yearly Recommend dental exams twice a year Balance work/leisure activities Exercises is recommended most days of the week (appropriate as chronic conditions allow) Follow up yearly and prn * Kamilla Patton NP - 03/29/2024 7:08 AM ESTAssociated Problem(s): Morbid (severe) obesity due to excess calories (CMS/HCC) Discussed with patient their BMI (actual, verses recommended). We have also discussed lifestyle modifications: attempts to perform physical activity as chronic conditions allow, also to monitor dietary intake: increasing protein/fruits/veggies and lowering carb intake (unless contraindicated). Limit sodas, juices, and sugary drinks. Goal start WW 05/13/24, fu 08/13/24 with goal loss 15 pounds * Kamilla Patton NP - 03/29/2024 7:07 AM ESTAssociated Problem(s): Gastro- esophageal reflux disease without esophagitis Recommendations: freq small meals, nothing to eat or drink at least 2 hours prior to bed, limit caffeine, alcohol, as well as spicy foods Meds to limit or avoid if possible: NSAIDS Elevate HOB if possible Current meds: pantoprazole BID Lengthy GERD hx * Kamilla Patton NP - 03/29/2024 7:07 AM ESTAssociated Problem(s): Pulmonary hypertension, unspecified (CMS/HCC) As per ECHO on 06/2023 at [facility] No current symptoms documented in this encounterCooper County Memorial [id number] Instructions* Patient Instructions* Kamilla aPtton NP - 03/29/2024 6:00 PM EST No med changes Goal: start weight watchers 05/13/2024 Follow up in August with goal 200-205 documented in this [facility]11-05-2024 Hospital Discharge instructions Patient Education 01/18/2024 15:56:53 Kidney Stones, Jyyw-kq-Ddmy Kidney Stones Kidney stones are rock-like masses [...] Follow these instructions at home: Medicines Take tzvu-rik-dpkolot and prescription medicines only as told by [...] provider. Document Revised: 10/23/2022 Document Reviewed: 10/23/2022 [employer] Patient Education 2023 [employer]. 01/18/2024 15:56:52 Dietary Guidelines to Help Prevent [...] about 300 mg of calcium at each meal.Foods that contain 200 500 mg of calcium a serving include: ?8 oz (237 mL) of milk, fdogcjt-idouwjkmlpat-vqmgs milk, and calcium- fortifiedfruit juice. Calcium-fortified means that calcium has been [...] the table and allow each person to addtheir own salt to taste. Use vegetable protein, such as beans, textured vegetable protein (TVP), or tofu, instead of meat inpasta, casseroles, and soups. Meal planning Eat less salt, if told by your dietitian. To do this: ?Avoid eating processed or pre-made food. ?Avoid eating fast food. Eat less animal protein, including cheese, meat, poultry, or fish, if told by your dietitian. To dothis: ?Limit the number of times you have meat, poultry, fish, or cheese each week. Eat a diet free of meat at least 2 days a week. ?Eat only one serving each day of meat, poultry, fish, or seafood. ?When you prepare animal proteins, cut pieces into small portion sizes. For most meat and fish, oneserving is about the size of the palm [...] ?Spinach (cooked), rhubarb, beets, sweet potatoes, and Swedish chard. ?Peanuts. ?Potato chips, tanzanian fries, and baked potatoes with skin on. ?Nuts and nut products. ?Chocolate. If you regularly take a diuretic medicine, make sure to eat at least 1 or 2 servings of fruits or vegetables that are high in potassium each day. These include: ?Avocado. ?Banana. ?Marks, prune, carrot, or tomato juice. ?Baked potato. [...] magnesium, fish oil, or vitamin B6. Take ouof-ayh-ydqcbyd and prescription medicines only as told by [...] Casseroles. Pizza. Lasagna. Frozen meals. Potato chips. Malay fries. The items listed above may not be a complete list of foods and beverages you should limit. Contact a dietitian for more information. What foods should I avoid? Talk to your dietitian about specific foods you should avoid based on the type of kidney stones youhave and your overall health. Fruits Grapefruit. The item listed above may not be a complete list of foods and beverages you should avoid. Contact adietitian for more information. Summary Kidney stones are [...] provider. Document Revised: 06/11/2022 Document Reviewed: 06/11/2022 [employer] Patient Education 2023 [employer]. Follow Up Care 12/28/2022 16:08:34 With:GENNA Carias APRN, [facility], FAM, URL Address:Unknown When: Unknown [facility] Rags 11-05-2024 NotePatient Education Nephrology Dietary Guidelines to Help Prevent [...] labels. Limit your salt (sodium) intake to lessthan 1,500 mg a day. ??? Choose foods with calcium for each meal and snack. Try to eat about 300 mg of calcium at each meal. Foods that contain 200?500 mg of calcium a serving include: ? 8 oz (237 mL) of milk, uhwcbkz-rpolqykvikft-yneyj milk, and calcium- fortifiedfruit juice. Calcium-fortified means that calcium has been [...] on the table and allow each person toadd their own salt to taste. ??? Use [...] Spinach (cooked), rhubarb, beets, sweet potatoes, and Swedish chard. ? Peanuts. ? Potato chips, tanzanian fries, and baked potatoes with skin on. ? Nuts and nut products. ? Chocolate. ??? If you regularly take a diuretic medicine, make sure to eat at least 1 or 2 servings of fruits or vegetables that are high in potassium each day. These include: ? Avocado. ? Banana. ? Marks, prune, carrot, or tomato juice. ? Baked potato. ? Cabbage. ? Beans and split peas. Lifestyle ??? Drink enough fluid to keep your urine pale yellow. This is the most important thing you can do.Spread your fluid intake throughout the day. ??? [...] fish oil, or vitamin B6. ??? Take eerf-ekq-xxzfete and prescription medicines only as told by your health (more content not included)...[facility]10-14-2024 History of Present illness Narrative* Kamilla Patton, METALWORKING INSTRUCTOR - 12/27/2023 7:06 PM EDTAssociated Problem(s): Obesity (BMI 30-39.9) Consider WW * Kamilla Patton NP - 12/27/2023 7:06 PM EDTAssociated Problem(s): Gastroesophageal reflux disease without esophagitis Cont PPI at BID as well as famotidine ONLY on PRN basis Fu in 3 months Continue w aggressive GERD therapy, weight loss * Kamilla Patton NP - 12/27/2023 6:00 PM EDT Images from the original note were not [...] to do this at this time. No otherchanges SUBJECTIVE: MEDICATIONS: Current Outpatient Medications Medication Instructions amitriptyline (ELAVIL) 50 mg, Oral, Nightly pantoprazole (PROTONIX) 40 mg, Oral, 2 times daily, Take 40 mg by mouth in the morning and 40 mg before bedtime. zonisamide (Zonegran) 25 MG capsule TAKE 1 CAPSULE BY MOUTH TWICE DAILY WITH 50 MG CAPS TO EQUAL 75MG zonisamide (ZONEGRAN) 50 mg, Oral, 2 times [...] LITHOTRIPSY OVARY SURGERY 1991 Ovarian Resection - [place] family history includes Arthritis in her mother; Breast cancer in her maternal grandmother; COPD inher father; Coronary artery disease in her father; Diabetes in her father and mother; Hearing loss in her mother; Heart attack in her father; Heart disease in her father; Hyperlipidemia in her fatherand mother; Hypertension in her father and mother; [...] Pulmonary hypertension, unspecified (CMS/HCC) Per echo reads * Kamilla Patton NP - 12/27/2023 7:38 AM EDTAssociated Problem(s): Pulmonary hypertension, unspecified (CMS/HCC) Per echo reads documented in this encounterCooper County Memorial [id number] History of Present illness Narrative* Mohsen Pace NP - 11/10/2023 4:00 PM EDT Images from the original note were not [...] LITHOTRIPSY OVARY SURGERY 1991 Ovarian Resection - [place] Family History Problem Relation Name Age of [...] Review Audit Reviewed by Avery Harvey MA (Multifocal Button Inspector) on 11/10/23 at 1558 Medication Order Taking? Sig Documenting Provider Last Dose Status amitriptyline (Elavil) 50 MG tablet [id number] Yes Take 50 mg by mouth at bedtime Kamilla Patton NP Taking Active famotidine (Pepcid) 20 MG tablet [id number] Take 1 tablet (20 mg) by mouth at bedtime Kamilla Patton NP 10/20/23 2359 pantoprazole (ProtoNix) 40 MG EC tablet [id number] Yes Take 1 tablet (40 mg) by mouth in the morning and 1 tablet (40 mg) before bedtime. Take 40 mg by mouth in the morning and 40 mg before bedtime.. Kamilla Patton NP Taking Active zonisamide (Zonegran) 25 MG capsule [id number] Yes TAKE 1 CAPSULE BY MOUTH TWICE DAILY WITH 50 MG CAPS TO EQUAL 75 MG Mohsen C Windnagel, KAYLAH Taking Active zonisamide (Zonegran) 50 MG capsule [id number] Yes Take 1 capsule (50 mg) by mouth in the morning and1 capsule (50 mg) before bedtime. Mohsen Hema Klinejasper, KAYLAH Taking Active HPI HPI TRIGEMINAL NEURALGIA [...] Recent and remote memory are intact. Speech isnormal. Language is fluent with no aphasia. Attention [...] in upper and lower extremities. Coordination Right: Cvymqz-xj-sxkd normal. Rapid alternating movement normal.Left: Capogr-cl-ijuu normal. Rapid alternating movement normal. Gait Casual gait is normal including stance, stride, and arm swing. Motor Examination RUE Strength deltoid, biceps, triceps, wrist extensors, wrist extensors, wrist flexor, relief mate strength 5/5. LUE Strength deltoid, biceps, triceps, wrist extensors, wrist extensors, wrist flexor, relief mate strength 5/5. RLE Strength illopsoas, quadriceps, tibialis [...] with a long history of migraine headaches. PostCovid recovery she experienced a constellation of symptoms [...] sleep with lavender, tea, mediation, and journaling Prior Evaluation: 1. Sedimentation rate 27, CRP [...] by mouth in the morning and 1 capsule(50 mg) before bedtime. - amitriptyline (Elavil) 50 MG tablet; Take 1 tablet (50 mg) by mouth at bedtime Nonintractable headache, unspecified chronicity pattern, unspecified headache type - zonisamide (Zonegran) 25 MG capsule; TAKE 1 CAPSULE BY MOUTH TWICE DAILY WITH 50 MG CAPS TO EQUAL75 MG - amitriptyline (Elavil) 50 MG tablet; [...] or sooner if needed documented in this encounterCooper County Memorial [id number] Instructions* Patient Instructions* Mendez Lund MD - 10/22/2023 3:30 PM EDT Stop pantoprazole and famotidine. Start esomeprazole 40mg twice daily - Take 30 min before breakfast and dinner 2. Return to clinic in 3 months. You can call [phone] to schedule documented in this encounterSouthview [facility] Center08-09-2024 History of Present illness Narrative* Mendez Lund MD - 10/22/2023 3:05 PM EDT NEW VIRTUAL CONSULT I had a virtual consult with Ms. Badillo today. Her local doctors have given her a diagnosis of GERD. This consult was requested by Dr Patton for an opinion regarding GERD , and my final recommendations will be communicated to the requesting health care provider by way of the shared medical record for internal providers or letter via the [facility] [facility] [employer] for external providers. I have communicated my name and active licensure. The patient's identity and physical location wereverified at the time of this visit. Either the patient or their legal commissary representative has been informed of the risks and benefits of -- and alternatives to -- treatment through a remote evaluation andconsents to proceed with the evaluation remotely. HISTORY: [...] PPI Mendez Lund MD [facility] History of Present illness Narrative* Zonia Chambers, DPM - 04/20/2023 3:45 PM EST Images from the original note were not [...] lateral hallux nail as well as she isnoted some discoloration recently Review of Systems Medications Current Outpatient Medications: amitriptyline (Elavil) 25 MG tablet, TAKE 1 TABLET BY MOUTH EVERY DAY AT BEDTIME FOR 30 DAYS, Disp:, Rfl: zonisamide (Zonegran) 25 MG capsule, TAKE 1 CAPSULE BY MOUTH TWICE DAILY WITH 50 MG CAPS TO EQUAL 75 MG, Disp: , Rfl: zonisamide (Zonegran) 50 MG capsule, Take 50 mg by mouth in the morning and 50 mg before bedtime., Disp: , Rfl: pantoprazole (ProtoNix) 20 MG EC tablet, Take 1 tablet (20 mg) by mouth in the morning and 1 tablet(20 mg) before bedtime., Disp: 60 tablet, Rfl: 1 Allergies Penicillins Past Surgical History Past Surgical History: Procedure Laterality Date APPENDECTOMY 1991 or CHOLECYSTECTOMY HERNIA REPAIR 1974 HYSTERECTOMY 2019 ovaries still present, non cancerous KNEE ARTHROSCOPY W/ DEBRIDEMENT Right 1990 x2, 2010 OVARY SURGERY 1992 Ovarian Resection - [place] Family History Family History Problem Relation Name [...] the nailbed. The nail is 3 mm thick,yellow, white with fungal debris. Mild dystrophy of [...] I explained to her that the proximal clearspace of the right hallux nail, lateral border has improved since her last visit. This is encouraging. She also has new nail growth noted at the proximal lateral corner of the nail the which is currently raising the cuticle. I encouraged her to massage this tissue at the lateral nail fold away fromthe nail plate to make room for the [...] the toe box creating lysis of nail. Shestates she recently changed from a Micky type of shoe to Hey Dudes. She does report that the Toms were too tight which may have been causing the lysis of the nail. She will monitor both of these areas.She will plan to call as needed for [...] understanding. Zonia Chambers DPM documented in this encounterCo[facility] [id number] Hospital Discharge instructions Patient Education 12/28/2022 16:01:02 [...] about 300 mg of calcium at each meal.Foods that contain 200 500 mg of calcium a serving include: ?8 oz (237 mL) of milk, clsuzkq-uwmsawfiauaw-vzcvw milk, and calcium- fortifiedfruit juice. Calcium-fortified means that calcium has been [...] the table and allow each person to addhis or her own salt to taste. Use vegetable protein, such as beans, textured vegetable protein (TVP), or tofu, instead of meat inpasta, casseroles, and soups. Meal planning Eat less salt, if told by your dietitian. To do this: ?Avoid eating processed or pre-made food. ?Avoid eating fast food. Eat less animal protein, including cheese, meat, poultry, or fish, if told by your dietitian. To dothis: ?Limit the number of times you have [...] ?Spinach (cooked), rhubarb, beets, sweet potatoes, and Swedish chard. ?Peanuts. ?Potato chips, tanzanian fries, and baked potatoes with skin on. ?Nuts and nut products. ?Chocolate. If you regularly take a diuretic medicine, make sure to eat at least 1 or 2 servings of fruits or vegetables that are high in potassium each day. These include: ?Avocado. ?Banana. ?Marks, prune, carrot, or tomato juice. ?Baked potato. [...] taking daily supplements. You may be told thefollowing depending on your health and the cause of your kidney stones: ?Not to take supplements with vitamin C. ?To take a calcium supplement. ?To take a daily probiotic supplement. ?To take other supplements such as magnesium, fish oil, or vitamin B6. Take ngvr-ymp-yksbhbk and prescription medicines only as told by [...] Casseroles. Pizza. Lasagna. Frozen meals. Potato chips. Malay fries. The items listed above may not be a complete list of foods and beverages you should limit. Contact a dietitian for more information. What foods should I avoid? Talk to your dietitian about specific foods you should avoid based on the type of kidney stones youhave and your overall health. Fruits Grapefruit. The item listed above may not be a complete list of foods and beverages you should avoid. Contact adietitian for more information. Summary Kidney stones are [...] provider. Document Revised: 11/10/2021 Document Reviewed: 11/10/2021 [employer] Patient Education 2022 [employer]. Follow Up Care 07/07/2022 08:32:51 With:PATI DOHERTY, Anand Fonseca, URL Address: [facility] [address], [place], [place] [address]- When:Within 1 Year(s) Comments:w/BIMALB [facility] 07-19-2023 [facility] History and physical note Author Luis M Juarez [facility] August 15, 2021 8:25amNote Date/TimeJun2021 8:18[place], [place] [address] Gastroenterology H&P Signed Patient: Cinthia Badillo MR#: [id number] : 1970 Acct:[id number] Age/Sex: 51 / F Adm Date: 2 Loc: Room: Type: [facility] Attending Dr: Luis M Juarez DO [...] Luis M Juarez Jr, DO> 08/15/21 0825 [facility] Work Phone: [phone]) 679-817706-03-2022 [facility] noteSelect [facility] + Plan note Future Appointments Appointment Date:12/28/2022 02:45:00 PM Scheduled Provider:Anand KRUEGER MD Location:[facility] App[facility]O [facility] Future Appointments Appointment Date:01/07/2024 08:00:00 AM Scheduled Provider:Anand KRUEGER MD Location:[facility] Appointment Type:URO Office Visit [facility] evaluation note* Diagnosis Onset Date Resolution Status GERD (gastroesophageal reflux disease) acuteScreening for colorectal canceracute [facility] Work Phone: Evaluation noteNo assessment information available [facility] Work Phone: evaluation note* Diagnosis Onychomycosis- Primary Dermatophytosis of nail Nail dystrophy Other specified disease of nail Pain in toes of both feet documented in this encounter [facility]* Diagnosis Gastroesophageal reflux disease without esophagitis Esophageal reflux documented in this encounter [facility]* Diagnosis Onset Date Resolution Status GERD (gastroesophageal reflux disease) acute [facility] Work Phone: Evaluation note* Diagnosis Gastroesophageal reflux disease, unspecified whether esophagitis present- Primary [facility] Diagnosis Gastroesophageal reflux disease [...] esophagitis- Primary Esophageal reflux Pulmonary hypertension, unspecified ([facility]/HCC) Obesity (BMI 30-39.9) Gastroesophageal reflux disease without esophagitis Esophageal reflux documented in this encounter [facility]* Diagnosis Trigeminal neuralgia ([facility]) Trigeminal neuralgia Nonintractable headache, unspecified chronicity pattern, unspecified headache type documented in this encounter [facility]* Diagnosis Gastroesophageal reflux disease without esophagitis- Primary Esophageal reflux BMI 32.0-32.9,adult Gastroesophageal reflux disease without esophagitis- Primary Esophageal reflux Obesity (BMI 30-39.9) Encounter for screening mammogram for malignant neoplasm of breast- Primary Pulmonary hypertension ([facility]/HCC) Other chronic pulmonary heart diseases Gastroesophageal reflux disease without esophagitis Esophageal reflux Obesity (BMI 30-39.9) Other chest pain Gastroesophageal reflux disease without esophagitis- Primary Esophageal reflux Obesity (BMI 30-39.9) Gastroesophageal reflux disease without esophagitis- Primary Esophageal reflux Pulmonary hypertension, unspecified ([facility]/HCC) Obesity (BMI 30-39.9) Encounter for annual wellness visit- Primary Morbid (severe) obesity due to excess calories ([facility]/HCC) Gastro-esophageal reflux disease without esophagitis Body mass index (BMI) 35.0-35.9, adult Pulmonary hypertension, unspecified ([facility]/HCC) Gastroesophageal reflux disease without esophagitis Esophageal reflux documented in this encounter [facility]* Diagnosis Gastroesophageal reflux disease without esophagitis- Primary Esophageal reflux BMI 32.0-32.9,adult Gastroesophageal reflux disease without esophagitis- Primary Esophageal reflux Obesity (BMI 30-39.9) Encounter for screening mammogram for malignant neoplasm of breast- Primary Pulmonary hypertension ([facility]/HCC) Other chronic pulmonary heart diseases Gastroesophageal reflux disease without esophagitis Esophageal reflux Obesity (BMI 30-39.9) Other chest pain Gastroesophageal reflux disease without esophagitis- Primary Esophageal reflux Obesity (BMI 30-39.9) Gastroesophageal reflux disease without esophagitis- Primary Esophageal reflux Pulmonary hypertension, unspecified ([facility]/HCC) Obesity (BMI 30-39.9) Encounter for annual wellness visit- Primary Morbid (severe) obesity due to excess calories ([facility]/HCC) Gastro-esophageal reflux disease without esophagitis Body mass [...] Onset Date Resolution Status Admit Date Migraine acuteAugust 2024 10:42amSleep disturbanceacuteAugust 2024 10:42am Trigeminal neuralgiaacuteAugust 2024 10:42am [facility] Work Phone: History and physical note Author Juani Blackwell [facility] September 30, 2022 8:25amNote Date/TimeJuly 2022 8:25am[place] [address] Gastroenterology H&P Signed Patient: Cinthia Badillo MR#: [id number] : 1970 Acct:[id number] Age/Sex: 52 / F Adm Date: 3 Loc: Room: Type: [facility] Attending Dr: Juani Blackwell MD Copies to: MD Kamilla Chin METALWORKING INSTRUCTOR-C~ Date of Service: 09/30/2022 HISTORY & PHYSICAL: Patient's history with special attention to the cardiovascular, pulmonary systems and the current problem was reviewed with the patient immediately prior to the procedure. Present medications and doses reviewed in the EMR. Allergies and pertinent laboratory tests were also re viewedat this time in the EMR. The physical [...] <Electronically signed by Juani Blackwell MD> 09/30/22824 [facility] Work Phone: Hospital course Narrative No data available for this section [facility] Discharge instructions No data available for this section [facility] Discharge instructions Additional Instructions DISCHARGE INSTRUCTIONS [...] NOT operate machinery such as power tools, [employer] mowers, snow blowers, sewing machines, etc. for [...] problems. -Follow up with PCP. -Office number [phone]. [facility] Work Phone: Hospital Discharge instructions Additional Instructions Rest. Push fluids. Take your current medications as prescribed. Take the Toradol 10 mg by mouth twice a day for 5 days. Follow-up with neurology as scheduled. Return here if symptoms persist or worsen.[facility] Work Phone: Hospital Discharge instructions Additional Instructions If she states she developed worsening pain swelling redness or fevers do not hesitate to return otherwise follow-up with your [facility] Work Phone: Progress note No data available for this section [facility] HospitalReason for referral (narrative)No reason for referral information availableC[facility] Work Phone: Chief Complaint and Reason for Visit Chief Complaint GERD, Screening GERD, ScreeningReason for VisitGERD (gastroesophageal reflux disease) Screening for colorectal cancer Chief [...] Trigeminal neuralgia October 17, 2024 10 :42am Chief Complaint Admit Date pain on right side of face October 12 11:05am jaw pain October 14, 2024 12: 54pm 3M December 04, 2024 5:29pm Reason for Visit Admit Date Migraine October 17, 2024 10: 42am Sleep disturbance October 17, 2024 10: 42am Trigeminal neuralgia October 17, 2024 10 :42am GERD without esophagitis December 04, 2024 5:29pm Family History No Family History Records Found Relationship Condition Age at Onset Recorded Date/T jay grandparent Malignant neoplasm of breast Unknown Diabetes mellitusUnknownNot SpecifiedDiabetes mellitusUnknownfatherHeart disease Unknown Relationship Condition Age at Onset Recorded Date/T jay grandparent Malignant neoplasm of breast Unknown Diabetes mellitusUnknownmotherDiabetes mellitusUnknownfatherHeart diseaseUnknown Advance Directives No Advanced Directives Records Found Advance Directive Response Recorded Date/ Time Advance Directives No August 08 2 10:47am Advance Directive Response Recorded Date/ Time Advance Directives No October 17 025 11:38am Summary Purpose Additional Source Comments Care Teams (unrecognized sec tion and content) Team Status: Inactive Member Role Status Dates Luis M Juarez DO Attending Provider Active NON STAFFPrimary Care ProviderActive Team Status: Active Member Role Status Dates NON STAFF Primary Care Provider Active Team Status: Inactive Member Role Status Dates NON STAFF Primary Care Provider Active TISHA Flores-BCAttending ProviderActive Team Status: Inactive Member Role Status Dates Anand Krueger MD Attending Provider Active Team Status: Active Member Role Status Dates PHYSICIAN NO FAMILY Primary Care Provider Active Team Status: Inactive Member Role Status Dates Juani Blackwell MD Attending Provider Active PHYSICIAN NO FAMILYPrimary Care ProviderActive Team Status: Inactive Member Role Status Dates Anand Krueger MD Attending Provider Active PHYSICIAN NO FAMILYPrimary Care ProviderActive Team Status: Active Member Role Status Dates Kamilla Patton Primary Care Provider Active Team Status: Inactive Member Role Status Dates Juani Blackwell MD Attending Provider Active Kamilla PattonPrimary Care ProviderActiveTeam MemberRelationshipSpecialtyStart DateEnd Date Nishant Aguilar MD [address] [place] [address] PCP - GeneralFamily Rglpcnvw41/27/23 Kamilla Patton NP [address] [place] [address] Nurse PractitionerB[facility] Yqhylave45/27/23Team MemberRelationshipSpecialtyStart DateEnd Date Nishant Aguilar MD [address] [place] [address] PCP - Generalmily Juwgqlrq14/27/23 Kamilla Patton NP [address] [place] [address] Nurse PractitionerEm[facility]03/10/23 Team Status: Inactive Member Role Status Dates Kamilla Patton Primary Care Provider Active Sta rt: July 07, 2023 End: July 07, 2023Imad GUMARO Blackwellttending ProviderActiveStart: July 07, 2023 End: July 07, 2023Team MemberRelationshipSpecialtyStart DateEnd Date Kamilla Patton Referring09/27/23Team MemberRelationshipSpecialtyStart DateEnd Date Nishant Aguilar MD [address] [place] [phone] PCP - [facility]05/17/23 Kamilla Patton NP [address] [place] [address] Nurse PractitionerEmory Saint [facility]03/10/23 Jerica Zhu MD [address] [place] [address] Referring PhysicianNeurology06/23/23Team MemberRelationshipSpecialtyStart DateEnd Date Nishant Aguilar MD [address] [place] [address] PCP - [facility]05/17/23 Kamilla Patton NP [address] [place] [phone] Nurse PractitionerFamily Sayaclih59/27/23 Jerica Zhu MD [address] [place] [address] Referring PhysicianNeurology06/23/23Team MemberRelationshipSpecialtyStart DateEnd Date Nishant Aguilar MD [address] [place] [address] PCP - GeneralFamily Medicine05/17/23 Kamilla Patton NP [address] [place] [address] Nurse PractitionerFamily Onrqkzvw41/27/23 Jerica Zhu MD [address] [place] [address] Referring PhysicianNeurology06/23/23Team MemberRelationshipSpecialtyStart DateEnd Date Nishant Aguilar MD [address] [place] [address] PCP - GeneralFamily Medicine05/17/23 Kamilla Patton NP [address] [place] [address] Nurse PractitionerFamily Ycfscfwg65/27/23 Jerica Zhu MD [address] [place] [address] Referring PhysicianNeurology06/23/23Team MemberRelationshipSpecialtyStart DateEnd Date Nishant Aguilar MD [address] [place] [address] PCP - GeneralFamily Medicine05/17/23 Kamilla Patton NP [address] [place] [address] Nurse PractitionerFamily Xwxvfgwt20/27/23 Jerica Zhu MD [address] [address] Referring PhysicianNeurology06/23/23Team MemberRelationshipSpecialtyStart DateEnd Date Nishant Aguilar MD [address] [place] [address] PCP - Generalmily Medicine05/17/23 Kamilla Patton NP [address] [place] [address] Nurse PractitionerB[facility] Hvbtbaxc35/27/23 Jerica Zhu MD [address] [address] Referring PhysicianNeurology06/23/23Team MemberRelationshipSpecialtyStart DateEnd Date Nishant Aguilar MD [address] [place] [address] PCP - GeneralFamily Medicine05/17/23 Kamilla Patton NP [address] [place] [address] Nurse PractitionerFamily Beaelbiq94/27/23 Jerica Zhu MD [address] [address] Referring PhysicianNeurology06/23/23Team MemberRelationshipSpecialtyStart DateEnd Date Nishant Aguilar MD [address] [place] [address] PCP - GeneralFamily Medicine05/17/23 Kamilla Patton NP [address] [place] [address] Nurse PractitionerFamily Boqgvlla46/27/23 Jerica Zhu MD [address] [place] [address] Referring PhysicianNeurology06/23/23Team MemberRelationshipSpecialtyStart DateEnd Date Nishant Aguilar MD [address] [place] [address] PCP - GeneralFamily Medicine05/17/23 Kamilla Patton NP [address] [place] [address] Nurse PractitionerFamily Cnpwznum83/27/23 Jerica Zhu MD [address] [place] [address] Referring PhysicianNeurology06/23/23 Lina Conner PA [address] [place] [address] Physician AssistantNeurology06/06/24Te MemberRelationshipSpecialtyStart DateEnd Date Nishant Aguilar MD [address] [place] [address] PCP - [facility]05/17/23 Kamilla Patton, KAYLAH [address] [place] [address] Nurse PractitionerEm[facility]03/10/23 Jerica Zhu MD [address] [place] [address] Referring PhysicianNeurology06/23/23 Lina Conner PA [address] [place] [address] Physician AssistantNeurology06/06/24Te MemberRelationshipSpecialtyStart DateEnd Date Nishant Aguilar MD [address] [place] [address] PCP - [facility]05/17/23 Kamilla Patton NP [address] [place] [address] Nurse PractitionerEm[facility]03/10/23 Jerica Zhu MD [address] [place] [address] Referring PhysicianNeurology06/23/23 Lina Conner PA [address] [place] [address] Physician AssistantNeurology06/06/24Team MemberRelationshipSpecialtyStart DateEnd Date Nishant Aguilar MD [address] [place] [address] PCP - [facility] Medicine05/17/23 Kamilla Patton NP [address] [place] [address] Nurse PractitionerBrockton Va Medical Center Rktmwlqz03/27/23 Jerica Zhu MD [address] [place] [address] Referring PhysicianNeurology06/23/23 Lina Conner PA [address] [place] [address] Physician AssistantNeurology06/06/24 Team Status: Inactive Member Role Status Dates Kamilla Patton Primary Care Provider Active Sta rt: October 12, 2024 End: October 12Markos Davila ProviderActiveStart: October 12, 2024 End: October 12, 2024 Team Status: Inactive Member Role Status Dates Kamilla Mathewsharriet Primary Care Provider Active Sta rt: October 14, 2024 End: October 14, 2024Diana Ulloa ProviderActiveStart: October 14, 2024 End: October 14, 2024 Team Status: Inactive Member Role Status Dates Kamilla Patton Primary Care Provider Active Sta rt: October 17, 2024 End: October 17Cecy Ruiz ProviderActiveStart: October 17, 2024 End: October 17, 2024Team MemberRelationshipSpecialtyStart DateEnd Date Nishant Aguilar MD [address] [place] [address] PCP - [facility]Faholyoke [facility] Medicine05/17/23 Kamilla Patton NP [address] [place] [address] Nurse PractitionerBrockton [facility] Medical Center Ipdvzkts55/27/23 Jerica Zhu MD [address] [place] [address] Referring PhysicianNeurology06/23/23 Lina Conner PA [address] [place] [address] Physician AssistantNeurology06/06/24 Team Status: Active Member Role Status Dates Kamilla Patton METALWORKING INSTRUCTOR-C Primary Care Provider Active Team Status: Inactive Member Role Status Dates Kamilla Patton METALWORKING INSTRUCTOR-C Primary Care Provider Active Start: October 12, 2024 End: October 12mandfili Jackson , APRNEmergency ProviderActiveStart: October 12, 2024 End: October 12, 2024 Team Status: Inactive Member Role Status Dates Kamilla Patton , METALWORKING INSTRUCTOR-C Primary Care Provider Active Start: October 14, 2024 End: October 14, 2024Nidal N Greggutawannaa , DOEmergency ProviderActiveStart: October 14, 2024 End: October 14, 2024 Team Status: Inactive Member Role Status Dates Kamilla Patton METALWORKING INSTRUCTOR-C Primary Care Provider Active Start: October 17, 2024 End: October 17renea Mcclain APRNAttending ProviderActiveStart: October 17, 2024 End: October 17, 2024 Team Status: Inactive Member Role Status Dates Kamilla Patton METALWORKING INSTRUCTOR-C Primary Care Provider Active Start: December 04, 2024 End: December 04, 2024Kamilla Patton NP-CAttending ProviderActiveStart: December 04, 2024 End: December 04, 2024 Goals (unrecognized section and content) Goals [...] section and content) DATE CREATED AUTHOR 08/24/2022 [facility] DATE CREATED AUTHOR AUTHOR'S ORGANIZ ATION 04/18/2023 [facility] DATE CREATED AUTHOR AUTHOR'S ORGANIZ ATION 09/30/2024 [facility] DATE CREATED AUTHOR AUTHOR'S ORGANIZ ATION 10/27/2024 [facility] DATE CREATED AUTHOR AUTHOR'S ORGANIZ ATION 12/18/2024 [facility] DATE CREATED AUTHOR AUTHOR'S ORGANIZ ATION 12/31/[address] [facility] DATE CREATED AUTHOR AUTHOR'S ORGANIZ ATION 01/05/2025 [facility] Reason for Visit (unrecogniz ed section and content) ReasonCommentsFollow-upEstablished pt presents today for 4 month lamisil fuv. Pt states she hasn't noticed much of a difference in her nails. Used topical medication as well.ReasonCommentsGERDSpecialtyDiagnoses / ProceduresReferred By ContactReferred To ContactGastroenterology Diagnoses Gastroesophageal reflux disease without esophagitis Procedures OFFICE/OUTPATIENT [facility] 60 MINUTES AMB REFERRAL TO GASTROENTEROLOGY Kamilla Patton, ADOBE ARCHITECT [address] [place] [address] Mendez Lund MD [address] [place] [address] Referral IDStatusReasonStart DateExpiration DateVisits RequestedVisits [id number] [facility]/[id number]Nxygtcvlzu NeuralgiaNumbnessReasonCommentsGastroesophageal reflux disease without esophagitisReasonCommentsGERDReasonCommentsBreast Pain Source Comments (unrecognize d section and content) In the event this informatio n is protected by the Federal Confidentiality of Alcohol and Drug Abuse Patient Records regulations: The Federal rules restrict any use of the information to criminally investigate or prosecute any alcohol or drug abuse patient.[facility] FOR RECORDS PERTAINING TO PATIENTS [...] BE BASED ON THE PRIMARY CLINICAL RECORDS. [id number] [facility]. provides no warranty or guarantee of the accuracy or completeness of information in this document.
[2025-01-06 10:39] LABS: Thyroid Stimulating Hormone 1.198 uIU/mL (0.358-3.740)
== END 2025-01-06 09:51 | disposition home or self-care (01) ==
LOC: LAB 09:51
PROVIDERS: PCP Nurse Practitioner
DX: Z01.419 Encounter for gynecological examination (general) (routine) without abnormal findings (principal); R23.2 Flushing
CPT/HCPCS: 36415; 84403; 84443

== ENCOUNTER 2025-01-30 16:30 | Outpatient (OUT) | payer BC, SELFPAY ==
--- NOTE | 2025-01-30 | XR_ITS ---
The [address] [address] Patient Name: MICHELLE BADILLO MRN: [id number] date: 1970 Sex: F Assigned Patient Location: [facility] Current Patient Location: [facility] Accession/Order Number: [id number] Exam Date: 01/30/2025 16:38 Report Date: 01/30/2025 19:55 At the request of: NOE KNOX NP Procedure: XR abdomen 1V Single view of abdomen HISTORY: Kidney stone checkup COMPARISON: 01/15/2024 Large amount of stool throughout the colon. No visible stones. The bony structures intact. XR/XR abdomen 1V IMPRESSION: No visible stones. Constipation. Impression dictated by: Ross Pizano M.D. 01/30/2025 7:55 PM Dictation Location: [place] [address] Electronically authenticated by: [id number] Y Date: 01/30/2025 19:55
--- OUTSIDE RECORDS SUMMARY | 2025-01-30 16:36 | XMS_ITS | CCD ---
Author Organization [facility] Inform ion Partnership [facility] Care Team Providers Care Cigar Binder Name Role Phone Larry DO Luis M Montano Attending Provider NON STAFF Primary Care Provider Unavaildina e NON STAFF Primary Care Provider UnavailTISHA Merino- Mohsen Attending Provider MD Anand Krueger Attending Provider [phone] BISIHCHRISTIANE, KAMILLA J Primary Care Physician PATI ., DR MICHEL Attending Unavailable KRUEGER ., DR MICHEL Consulting Unavailable AICHHOLZ, DIESEL FLEET MECHANIC KAMILLA Primary Care Unavailable KRUEGER ., DR MICHEL Admitting Unavailable GALVEZ, AGNES Consulting Unavailable KRUEGER ., DR MICHEL Consulting Unavailable AICHHOLZ, DIESEL FLEET MECHANIC KAMILLA Primary Care Unavailable KRUEGER ., DR MICHEL Admitting Unavailable KRUEGER ., DR MICHEL Attending Unavailable ZIEBER, DR JERICA Fonseca Consulting Unavailable SHARP, KYLE Consulting Unavailable MARY ANN II, GEOVANNI Consulting Unavailable KRUEGER ., DR MICHEL Attending Unavailable AICHHOLZ, DIESEL FLEET MECHANIC KAMILLA Primary Care Unavailable KRUEGER ., DR MICHEL Admitting Unavailable AICHHOLZ, DIESEL FLEET MECHANIC KAMILLA Admitting Unavailable AICHHOLZ, DIESEL FLEET MECHANIC KAMILLA Attending Unavailable AICHHOLZ, DIESEL FLEET MECHANIC KAMILLA Consulting Unavailable AICHHOLZ, DIESEL FLEET MECHANIC KAMILLA Primary Care Unavailable ZIEBER, DR JERICA Fonseca Consulting Unavailable AICHHOLZ, DIESEL FLEET MECHANIC KAMILLA Admitting Unavailable AICHHOLZ, DIESEL FLEET MECHANIC KMAILLA Attending Unavailable AICHHOLZ, DIESEL FLEET MECHANIC KAMILLA Consulting Unavailable AICHHOLZ, DIESEL FLEET MECHANIC KAMILLA Primary Care Unavailable FAWWAD, STEELE H Admitting Unavailable FAWWAD, STEELE H Attending Unavailable FAWWAD, STEELE H Consulting Unavailable AICHHOLZ, DIESEL FLEET MECHANIC KAMILLA Primary Care Unavailable KRUEGER ., DR MICHEL Attending Unavailable KRUEGER ., DR MICHEL Consulting Unavailable AICHHOLZ, DIESEL FLEET MECHANIC KAMILLA Primary Care Unavailable KRUEGER ., DR MICHEL Admitting Unavailable ZIEBER, DR JERICA Fonseca Consulting Unavailable AICHHOLZ, DIESEL FLEET MECHANIC KAMILLA Primary Care Unavailable AICHHOLZ, DIESEL FLEET MECHANIC KAMILLA Admitting Unavailable AICHHOLZ, DIESEL FLEET MECHANIC KAMILLA Attending Unavailable AICHHOLZ, DIESEL FLEET MECHANIC KAMILLA Consulting Unavailable KRUEGER ., DR MICHEL Admitting Unavailable KRUEGER ., DR MICHEL Consulting Unavailable AICHHOLZ, DIESEL FLEET MECHANIC KAMILLA Primary Care Unavailable KRUEGER ., DR MICHEL Attending Unavailable WEST, DR LUIS M Bustos Consulting Unavailable AICHHOLZ, DIESEL FLEET MECHANIC KAMILLA Primary Care Unavailable WEST, DR LUIS M Bustos Consulting Unavailable AICHHOLZ, DIESEL FLEET MECHANIC KAMILLA Admitting Unavailable AICHHOLZ, DIESEL FLEET MECHANIC KAMILLA Attending Unavailable AICHHOLZ, DIESEL FLEET MECHANIC KAMILLA Consulting Unavailable KRUEGER ., DR MICHEL Consulting Unavailable AICHHOLZ, DIESEL FLEET MECHANIC KAMILLA Primary Care Unavailable KRUEGER ., DR MICHEL Admitting Unavailable KRUEGER ., DR MICHEL Attending Unavailable NO FAMILY, PHYSICIAN Primary Care Provider Unava brenda Blackwell MD Imshawn Attending Provider [phone] Aichholz, Kamilla J Primary Care Provider TARIQ BARRIOSN R Referring Unavailable SOPHIE, ISABELLE R Primary Care Unavailable Aichholz PASSENGER ELEVATOR OPERATOR, Kamilla Unavailable Nishant Aguilar MD Primary Care Provider Aichholz, Kamilla Unavailable Unavailable Aichholz PASSENGER ELEVATOR OPERATOR, Kamilla Unavailable Nishant Aguilar MD Primary Care Provider Jerica Zhu MD Unavailable Jerica Zhu MD Unavailable Unavailable Lina Tobin Unavailable Jerica Zhu MD Unavailable [phone] LINA CONNER Attending Unavailable AICHHOLZ, KAMILLA Attending Unavailable MOHSEN PACE Attending Unavailable AICHHOLZ, KAMILLA Attending Unavailable AICHHOLZ, KAMILLA Attending Unavailable AICHHOLZ, KAMILLA Attending Unavailable Aichholz, Kamilla J Primary Care Provider [phone] Katty Jackson APRN Emergency Provider Choujaa DO, Nidal N Emergency Provider Agnes Mcclain APRN Attending Provider Kamilla Patton Primary Care Unavailable Katty Jackson Admitting Unavailable Katty Jackson Attending Unavailable Kamilla Patton Primary Care Unavailable Choujaa, Nidal N Admitting Unavailable Choujaa, Nidal N Attending Unavailable Abdi PASSENGER ELEVATOR OPERATOR-C, Kamilla Johnson Primary Care Provider [phone] Abdi PASSENGER ELEVATOR OPERATOR-C, Kamilla Johnson Attending Provider LUIS M MACHUCA Attending Unavailable Abdi PASSENGER ELEVATOR OPERATOR, Kamilla Unavailable Nishant Aguilar MD Primary Care Provider Jerica Zhu MD Unavailable Abdi PASSENGER ELEVATOR OPERATOR, Kamilla Unavailable Lina Tobin Unavailable Sena Carias Attending Unavailable Sena Carias Attending Unavailable Bisihchristiane ASSEMBLER INSTALLER STRUCTURES-DIESEL FLEET MECHANIC, Kamilla Grubbs Primary Care Unava ilable Jennifer FU, Chidi Patten Attending Unavail able Ligia ASSEMBLER INSTALLER STRUCTURES-DIESEL FLEET MECHANIC, Shelley Mcleod Attending Unav ailable Aichholkasie ASSEMBLER INSTALLER STRUCTURES-DIESEL FLEET MECHANIC, Kamilla Grubbs Primary Care Unava ilable Ligia ASSEMBLER INSTALLER STRUCTURES-DIESEL FLEET MECHANIC, Shelley Mcleod Attending Unav ailable Aichholz ASSEMBLER INSTALLER STRUCTURES-DIESEL FLEET MECHANIC, Kamilla Grubbs Primary Care Unava ilable Allergies Allergy ClassificationReported Allergen(s)Allergy TypeDate of OnsetReaction(s) Facility (20 sources)Penicillins; Translations: [PENICILLINS]Allergy to substance 16-45-9911VqrdqCrsgrreorHighland District Hospital (6 sources)Penicillin; Translations: [penicillin]Drug AllergyUnknownExecutive [facility] Medications Current Medications MedicationDrug Class(es)DatesSig (Normalized)Sig (Original)Acidophilus Probiotic Blend (4 sources)Start: 99-85-6330Vqtxqknjcmz Probiotic Blend Oral, Daily, Refill(s) 0 Start Date: 06/22/22 Status: Orderedamitriptyline hydrochloride 50 mg oral tablet (20 sources)Tricyclic AntidepressantStart: 04-30-2023 End: 06-85-7977zcht 1 tablet by mouth at bedtimeamitriptyline (Elavil) 50 MG tablet Indications: Trigeminal neuralgia Take 1 tablet (50 mg) by mouth at bedtime 90 tablet 3 06/06/2024 06/06/2025 ActiveStart: 99-38-1209mueg 2 tablets by mouth once dailyAmitriptyline 25 mg Tablet Active 50 MG PO Daily September 28, 2022 12:00am Complies with drug therapyStart: 61-44-4834lkmm 1 tablet by mouth once dailyStart: 08-15-2021 End: 42-69-4104oklt 1 tablet by mouth once dailyAmitriptyline 10 mg tablet Discontinued 10 MG PO Daily August 15, 2021 12:00am September 28, 2022 1:19pm Ascorbic Acid (4 sources)Vitamin CStart: 64-84-5836Mflbogw C Daily, Refills(s) 0 Start Date: 06/22/22 Status: Orderedbaclofen 10 mg oral tablet (1 source)gamma-Aminobutyric Acid-ergic AgonistStart: 56-78-7919qixu 0.5-1 tablets by mouth every eight hours as neededBaclofen 10 mg tablet Active 10 MG PO Three times daily October 17, 2024 12:00am Take 1/2-1 tab every 8 hours as needed Complies with drug therapyCranberry preparation (4 sources)Non-Standardized Food Allergenic Extract, Non-Standardized Plant Allergenic ExtractStart: 58-33-1234Iqnaeaorm Refill(s) 0 Start Date: 06/22/22 Status: Orderedesomeprazole 40 mg delayed release oral capsule (1 source)Proton Pump InhibitorStart: 43-23-3249iwed 1 capsule by mouth twice daily before breakfastesomeprazole (NEXIUM) 40 mg capsule Take 1 capsule by mouth two times a day before meals. Take 30 min before breakfast and dinner 180 capsule 3 10/22/2023 ActiveMaca Root (1 source)Start: 46-98-0537Uigx Root Cornel Root Start Date: 01/18/24 Status: OrderedMelatonin (4 sources)Start: 00-62-8693Jnulsfvtu Once a day (at bedtime), Refills(s) 0 Start Date: 06/22/22 Status: OrderedMultivitamin preparation (4 sources)Start: 31-39-6185eefxwecdqork Daily, Refill(s) 0 Start Date: 06/22/22 Status: OrderedOmega-3 oral capsule (4 sources)Start: 68-33-6803Lnndy-3 oral capsule Refill(s) 0 Start Date: 06/22/22 Status: OrderedpredniSONE 20 mg oral tablet (1 source)Start: 15-88-7633xbln 2 tablets by mouth once dailyterbinafine 250 mg oral tablet (2 sources)Allylamine AntifungalStart: 75-86-7333exxcnpxnhsy 250 mg Tab Refills(s) 0 Start Date: 12/28/22 Status: OrderedtraZODone hydrochloride 50 mg oral tablet (1 source)Serotonin Reuptake InhibitorStart: 69-50-4241dkhNJWJAV 50 mg Tab Refills(s) 0 Start Date: 06/22/22 Status: OrderedViactiv Soft Calcium Chews (4 sources)Start: 38-86-7245Pkqmkwb Soft Calcium Chews Refill(s) 0 Start Date: 06/22/22 Status: OrderedVonoprazan (3 sources)Start: 92-01-5563zpat 1 tablet by mouth once dailyVonoprazan (Voquezna) 20 mg tablet Active 20 MG PO Daily October 14, 2024 12:00am Complies with drug therapyVonoprazan Fumarate (Voquezna) 20 MG tablet (3 sources)take 1 tablet by mouth once dailyVonoprazan Fumarate (Voquezna) 20 MG tablet Take 20 mg by mouth Daily Activezonisamide 25 mg oral capsule (20 sources)Anti-epileptic AgentStart: 07-27-2023 End: 15-20-3103vhls 1 capsule by mouth in the morningzonisamide (Zonegran) 50 MG capsule Indications: Trigeminal neuralgia Take 1 capsule (50 mg) by mouth in the morning and 1 capsule (50 mg) before bedtime. 180 capsule 3 06/06/2024 06/06/2025 ActiveStart: 46-04-1835oodq 1 capsule by mouth in the morning zonisamide (Zonegran) 50 MG capsule Take 50 mg by mouth in the morning and 50 mg before bedtime. 0 12/12/2022 ActiveStart: 09-28-2022 End: 23-73-1643deaf 1 capsule by mouth twice dailyZonisamide 25 mg capsule Active 25 MG PO Twice daily October 17, 2024 12:00am Complies with drug therapy Start: 14-70-1021fgat 50 mg by mouth twice dailyZonisamide Active 50 MG PO Twice daily September 28, 2022 12:00am Completed/Discontinued Medications MedicationDrug Class(es)DatesSig (Normalized)Sig (Original)acetaminophen 325 mg / HYDROcodone bitartrate 5 mg oral tablet (5 sources)Opioid AgonistStart: 10-14-2024 End: 72-32-1007swxv 1 tablet by mouth every six hours as neededHydrocodone- Acetaminophen 5-325 mg tablet Discontinued 1 TAB PO Every 6 hours as needed October 12:00am December 01, 2024 5:29pmclindamycin 300 mg oral capsule (5 sources)Lincosamide AntibacterialStart: 10-14-2024 End: 09-86-1944qrfh 1 capsule by mouth three times dailyClindamycin Hcl 300 mg capsule Discontinued 300 MG PO Three times daily October 17, 2024 12:00am Sep tember 2024 5:29pmfamotidine 20 mg oral tablet (12 sources)Histamine-2 Receptor AntagonistStart: 07-07-2023 End: 41-11-3349iarr 1 tablet by mouth once daily at bedtimeFamotidine 20 mg tablet Discontinued 20 MG PO Daily at bedtime July 07, 2023 12:00am October 14, 2024 1:00pmStart: 20-96-0434pgyutipddq 20 mg Tab Refills(s) 0 Start Date: 12/28/22 Status: Orderedketorolac tromethamine 10 mg oral tablet (6 sources)Nonsteroidal Anti-inflammatory Drug, Cyclooxygenase InhibitorStart: 10-12-2024 End: 17-93-7553opjp 1 tablet by mouth twice daily as neededKetorolac 10 mg tablet Discontinued 10 MG PO Twice daily as needed October 17, 2024 12:00am December 01, 2024 5:29pm maximum total duration of 5 days from all oral, intranasal, or parenteral formulationspantoprazole 40 mg delayed release oral tablet (20 sources)Proton Pump InhibitorStart: 09-28-2022 End: 38-42-8916nwnp 1 tablet by mouth twice dailyPantoprazole 20 mg Tablet,Delayed Release (Dr/Ec) Discontinued 20 MG PO Twice daily September 28, 2022 12:00am July 07, 2023 1:56pmStart: 06-22-2022 End: 26-29-9699uvnt 1 tablet by mouth twice dailyPantoprazole 40 mg tablet,delayed release (DR/EC) Discontinued 40 MG PO Twice daily July 07, 2023 12:00am October 14, 2024 1:00pmStart: 08-15-2021 End: 99-39-3132zbcr 1 tablet by mouth once dailyPantoprazole 40 mg tablet,delayed release (DR/EC) Discontinued 40 MG PO Daily August 15, 2021 12:00am September 28, 2022 1:20pm Problems Active Problems Problem ClassificationProblemDateDocumented DateEpisodic/ChronicAbdominal pain (9 sources)Left flank pain; Translations: [Unspecified abdominal pain]Onset: 130977-90-3320ZfolhztzZpgunu (5 sources)Asthma; Translations: [Unspecified asthma, uncomplicated]Onset: 547472-06-7482PziovpvMtdbirp tract disease (4 sources)Sexiukcxe57-18-1347WhgmupbiVfsfvldo of urinary tract (11 sources)Kidney stone; Translations: [Calculus of kidney]Onset: 07-29-2022 70-86-4697HcvwioyqAtxrirrl of mouth; excluding dental (3 sources)Sialoadenitis of the submandibular gland; Translations: [Sialoadenitis, unspecified]67-98-6588UsgihvnmEujmahvcrq disorders (20 sources)Gastroesophageal reflux disease; Translations: [Gastro-esophageal reflux disease without esophagitis]Onset: 555979-17-8439RkgbyukVfezqjr on above:Problem List clean-up per request of Phys. EHR CmteHeadache; including migraine (20 sources)Migraine without aura, not refractory ; Translations: [Migraine without aura, not intractable, without status migrainosus]Onset: 11-04-2023 32-47-4115XbrvbvfVlkwkkz on above:Problem List clean-up per request of Phys. SWETHA CmteHeadache; including migraine (1 source)Headache; including migraine; Translations: [Headache, unspecified] Onset: 41-01-0862Vvqpcdt (2 sources)Onychomycosis; Translations: [Tinea unguium]57-06-2603Gipfghhf Osteoarthritis (5 sources)Arthritis; Translations: [Unspecified osteoarthritis, unspecified site]Onset: 529034-61-1594IjskudsJwgdj connective tissue disease (1 source)Pain in unspecified lower leg; Translations: [PAIN IN UNSPECIFIED LOWER LEG]Onset: 91-20-9661GdvrkjrwXzceu connective tissue disease (2 sources)Pain of toes of bilateral feet; Translations: [Pain in right toe(s)] 35-90-5571DeqwdtqaGsjzf nervous system disorders (4 sources)Paresthesia of skin; Translations: [PARESTHESIA OF SKIN]Onset: 32-75-9298VlfwmrxsSkrcf nervous system disorders (6 sources)Trigeminal neuralgia; Translations: [Trigeminal neuralgia]11-10-2023 EpisodicOther nervous system disorders (4 sources)Right trigeminal neuralgia; Translations: [Trigeminal neuralgia] 97-90-5651WmkssdkhScpxh nervous system disorders (1 source)Trigeminal neuralgia; Translations: [Trigeminal neuralgia]Onset: 26-97-6030GyjyfpfsWwcyb nutritional; endocrine; and metabolic disorders (20 sources)Body mass index 30+ - obesity; Translations: [Body mass index (BMI) 32.0-32.9, adult]Onset: 03-18-2023 Resolved: 562269-28-1493RgxkituQqarq nutritional; endocrine; and metabolic disorders (20 sources)Obesity caused by energy imbalance; Translations: [Morbid (severe) obesity due to excess calories]Onset: 779988-69-4938KwhmirwPfvlp skin disorders (2 sources)Dystrophia unguium; Translations: [Nail dystrophy]76-52-6309Wgwfkezw Pulmonary heart disease (20 sources)Pulmonary hypertension; Translations: [Pulmonary hypertension, unspecified]Onset: 270370-66-8092JdjtbiwWemtsfww codes; unclassified (1 source)Idiopathic sleep related nonobstructive alveolar hypoventilation; Translations: [Idiopathic sleep related nonobstructive alveolar hypoventilation] Onset: 73-30-9801KvwnrmuQcilfzhj codes; unclassified (20 sources)Hypoxia; Translations: [Idiopathic sleep related nonobstructive alveolar hypoventilation]Onset: 525798-25-0512RozyvunZlonwxec codes; unclassified (20 sources)Hypersomnia; Translations: [Hypersomnia, unspecified]Onset: 366757-14-9456QkbbfdxBwqgxsxi codes; unclassified (1 source)Family history of malignant neoplasm of breast; Translations: [FAMILY HX MALIG NEOPLASM OF BREAST]Onset: 71-45-1499SdwcalptWrkyfgmy codes; unclassified (1 source)Past history of procedure; Translations: [Other specified postprocedural states]28-26-5648KlmyjhxsKfixqsxfidfs (3 sources)CONTACT W/AND (SUSP) EXPOS COVID-19; Translations: [CONTACT W/AND (SUSP) EXPOS COVID-19]Onset: 12-25-2021 Past or Other Problems Problem ClassificationProblemDateDocumented DateEpisodic/ChronicDiabetes mellitus without complication (11 sources)Hyperglycemia; Translations: [Hyperglycemia, unspecified]Onset: 659804-82-6886WksndtdjIcixfqqn; including migraine (2 sources)Headache; Translations: [Nonintractable headache, unspecified chronicity pattern, unspecified headache type]06-88-9383BuipdwqdGitxjyaanex chest pain (20 sources)Chest pain, unspecified; Translations: [Chest pain]Onset: 07-12-2022 10-87-3392WkqrghhqQyejk diseases of kidney and ureters (14 sources)Abnormal renal function; Translations: [Disorder of kidney and ureter, unspecified]Onset: 659164-29-3208MxqacdlhBiwcm nervous system disorders (20 sources)Paresthesia; Translations: [Paresthesia of skin]Onset: 11-04-2023 09-63-6880KwnsvglnIzxed screening for suspected conditions (not mental disorders or infectious disease) (20 sources)Patient encounter status; Translations: [Encounter for screening for malignant neoplasm of colon]Onset: 224490-28-0301BwmdjmagGufowxn on above:Problem List clean-up per request of Phys. EHR CmteOther upper respiratory infections (1 source)Acute upper respiratory infection, unspecified; Translations: [ACUTE UP RESPIRATORY INFECTION UNS]Onset: 62-14-2201ObswuyziLxuyoxkxwf disorders (not diabetes) (20 sources)Pancreatitis; Translations: [Acute pancreatitis without necrosis or infection, unspecified]Onset: 09-26-2017 Resolved: 185484-89-3129HtgmfyyfDvrbfquj codes; unclassified (20 sources)Disturbance in sleep behavior; Translations: [Sleep disorder, unspecified]Onset: 872926-38-1011UhnasuyeAltjtlsetzdz (1 source)CONTACT W/AND (SUSP) EXPOS COVID-19; Translations: [CONTACT W/AND (SUSP) EXPOS COVID-19]Onset: 12-22-2021 Results Test NameValueInterpretationReference RangeFacilityReminderson 01-10-2025 RemindersReminders From: Carin Almanzar To: EU - Administrative; Sent: 01/18/2024 15:56:07 EST Show up: 07/13/2024 15:56:00 EDT Subject: 1 yr f/u Due Date/Time: 01/13/2025 15:55:00 EDT Reminder/Recall Patient needs scheduled with AO for a 1 yr f/u with KUB Left VM asking PT to call back and get scheduled. patient is scheduled [facility]/Cl[facility] Noteon 57-81-4371Xwdaobulov Office/Clinic NoteChief Complaint 54 y/o , Annual [...] vaginal estrogen cream she has been prescribed. [facility] & PRESIDENT Additional Details Menstrual History Reason for No Menstrual PeriodsHysterectomy Age of Fcxeslwgx15 Age Menses Ktwogpw84 Contraception Contraception TypeVasectomy Review of Systems Head [...] estrogen-dependent tumors. Patient is educatedthere are no skilled nursing randomized trials evaluating the safety of low dose vaginal estrogen. Observational data had not shown any increased risk of breast cancer, endometrial cancer, coronary heart disease, stroke, or VTE. Side effects with vaginal estrogen may (more content not included)...[facility] HospitalML[facility] HEMOGLOBIN A1Con 11-04-2024 Glucose [Mass/Vol]103 mg/dLSalem Memorial District HospitalHbA1c (Bld) [Mass fraction]5.2 %4.5 - 6.2 %NOM HealthcareComment on above:ADA RECOMMENDED LIMIT 4.0 - 6.0 ADA THERAPEUTIC TARGET < 7.0 ACTION SUGGESTED > 7.0 CLINISYNCNOMS HealthcareAlanine aminotransferase [Enzymatic activity/volume] in Serum or PlasmaOrdered By: Rajinder Elliott on 61-80-8659YYO [Catalytic activity/Vol]23 U/L7-52The [facility] Toledo Medical CenterComment on above: Performed By: #### CBC, ESR, CMP, CRP #### [facility] [address] [place] [address] USAAlbumin [Mass/volume] in Serum or Plasma by Bromocresol green (BCG) dye binding methoOrdered By: Rajinder Elliott on 48-51-6579Rrknusu BCG dye [Mass/Vol]4.6 g/dL3.5-5.7FSelect Medical Specialty Hospital - Southeast OhioAlkaline phosphatase [Enzymatic activity/volume] in Serum or PlasmaOrdered By: Rajinder Elliott on 74-03-8900JXG [Catalytic activity/Vol]80 U/I36-875FutycwmlfThe University Of Toledo Medical CenterComment on above:Performed By: #### CBC, ESR, CMP, CRP #### [facility] [address] [place] [address] USAAspartate aminotransferase [Enzymatic activity/volume] in Serum or PlasmaOrdered By: Rajinder Elliott on 62-04-3373TLZ [Catalytic activity/Vol]18 U/D04-74GabhhquovThe University Of Toledo Medical CenterComment on above: Performed By: #### CBC, ESR, CMP, CRP #### [facility] [address] [place] [address] USABasophils [#/volume] in Blood by Automated countOrdered By: Rajinder Elliott on 25-73-7913Lndndwevu (Bld) [#/Vol]0.0 10*3/uL0.0-0.2 [facility] CenterComment on above:Performed By: #### CBC, ESR, CMP, CRP #### [facility] [address] [place], [place] [id number] USABasophils/100 leukocytes in Blood by Automated count Ordered By: Rajinder Elliott on 18-99-3137Daelvphyn/100 WBC (Bld)0.2 %.The [facility]edo Medical CenterComment on above:Performed By: #### CBC, ESR, CMP, CRP #### [facility] [address] [place] [address] USABilirubin.total [Mass/volume] in Serum or PlasmaOrdered By: Rajinder Elliott on 85-48-4081Rwfmrfvcd [Mass/Vol]0.5 mg/dL0.3-1.0The [facility] Medical CenterComment on above:Performed By: #### CBC, ESR, CMP, CRP #### [facility] [address] [place] [address] USAC reactive protein [Mass/volume] in Serum or PlasmaOrdered By: Rajinder Elliott on 33-40-6125OOJ [Mass/Vol]6.5 mg/dLHigh0.0-0.5FSelect Medical Specialty Hospital - Southeast OhioC-Reactive Proteinon 30-25-5689S-Reactive Protein6.5 mg/dLHigh0.0-0.5The [facility] Physician GroupComment on above:Result Comment: PERFORMED BY: [place] [address] PATHOLOGIST LEGAL ANALYST HARSHAL REY M.D.Performed By: #### CBC, ESR, CMP, CRP #### [facility] [address] [place], [place] [id number] USACT soft tissue neck w conon 31-95-5121ID soft tissue neck w [facility] [address] [place] [address] CT Scan Report Signed Patient: Cinthia Badillo MR#: [id number] : 1970 Acct:[id number] Age/Sex: 54 / F ADM Date: 10/14/24 Loc: ER Room: Type: [facility] ER Attending Dr: Copies to: Rajinder Elliott [...] Gonzales M.D. 10/14/2024 4:15 PM Dictation Location: [place] [address] Transcribed By: [facility] 10/14/24 1615 Dictated By: Mike Gonzales II, MD 10/14/24 1607 Signed By: 10/14/24 1615[facility] Physician GroupCalcium [Mass/volume] in Serum or PlasmaOrdered By: Rajinder Elliott on 33-37-3882Xctbypo [Mass/Vol]9.7 mg/dL 8.6-10.3FSelect Medical Specialty Hospital - Southeast OhioComment on above:Performed By: #### CBC, ESR, CMP, CRP #### [facility] [address] [place] [address] USACarbon dioxide, total [Moles/volume] in Serum or Plasma Ordered By: Rajinder Elliott on 32-12-8855ZB2 [Moles/Vol]24.4 mmol/L21.0-31.0 [facility] CenterComment on above:Performed By: #### CBC, ESR, CMP, CRP #### [place] [address] USAChloride [Moles/volume] in Serum or PlasmaOrdered By: Rajinder Elliott on 44-72-1985Rvjgadmi [Moles/Vol]107 mmol/O20-785GhdjtsggpThe University Of Toledo Medical CenterComment on above:Performed By: #### CBC, ESR, CMP, CRP #### [place] [address] USAComplete Blood Count Auto Diffon 41-96-2701Vgxn Corpuscular HGB Conc33.6 g/yOXtuvav36.0-35.0The [facility] Physician GroupComment on above:Performed By: #### CBC, ESR, CMP, CRP #### [place] [address] USAMonocytes/100 WBC (Bld)22.19 %High0.00-20.00The [facility] Physician GroupComment on above:Result Comment: For adults in ED, MDW > 20.0 may be associated with a higher risk of sepsis during the first 12 hrs of hospital admissionPerformed By: #### CBC, ESR, CMP, CRP #### [place] [address] USANRBC%0.1 /100{WBC}Normal0-0.5The [facility] Physician Group Comment on above:Performed By: #### CBC, ESR, CMP, CRP #### [place] [address] USAWhite Blood Count12.1 [CFU]/mLHigh3.8-11.6The [facility] Physician GroupComment on above:Performed By: #### CBC, ESR, CMP, CRP #### [place] [address] USAComprehensive Metabolic Panelon 18-79-0083Ksscdej [Mass/Vol]4.6 g/dLNormal3.5-5.7The [facility] Physician [facility] HospitalComment on above: Performed By: #### CBC, ESR, CMP, CRP #### [facility] [address] [place] [address] USACreatinine Clr Calc Pjwmbxux55.68NormalThe [facility] Physician GroupComment on above:Performed By: #### CBC, ESR, CMP, CRP #### [place] [address] USAGFR/1.73 sq M.predicted MDRD (S/P/Bld) [Vol rate/Area] 55.797 mL/min/{1.73_m2}NormalThe Barnes-Kasson County HospitalComment on above: Performed By: #### CBC, ESR, CMP, CRP #### [place] [address] USACreatinine [Mass/volume] in Serum or PlasmaOrdered By: Rajinder Elliott on 22-27-1081Fvvtkhzbgi [Mass/Vol]1.17 mg/dL0.60-1.20The [facility]edo [facility] CenterComment on above:Performed By: #### CBC, ESR, CMP, CRP #### [place] [address] USAEosinophils [#/volume] in Blood by Automated countOrdered By: Rajinder Elliott on 70-10-3766Schdiuowmbu (Bld) [#/Vol]0.0 10*3/uL0.0-0.45 The [facility] CenterComment on above:Performed By: #### CBC, ESR, CMP, CRP #### [place] [address] USAEosinophils/100 leukocytes in Blood by Automated count Ordered By: Rajinder Elliott on 23-96-4346Nbirvdsqsbz/100 WBC (Bld)0.2 %.The [facility]edo Medical CenterComment on above:Performed By: #### CBC, ESR, CMP, CRP #### [facility] [address] [id number] USAErythrocyte Sedimentation Rateon 21-14-9654OJW (Bld) [Velocity]40 mm/hHigh0-29The [facility] Physician GroupComment on above:Result Comment: PERFORMED BY: [place] [address] PATHOLOGIST LEGAL ANALYST HARSHAL REY M.D.Performed By: #### CBC, ESR, CMP, CRP #### [facility] [address] [place] [address] USAErythrocyte distribution width [Ratio] by Automated count Ordered By: Rajinder Elliott on 25-89-5204Aoydklbcwst distribution width (RBC) [Ratio]13.8 %11.9-15.3FSelect Medical Specialty Hospital - Southeast OhioComment on above: Performed By: #### CBC, ESR, CMP, CRP #### [place] [address] USAErythrocyte sedimentation rate by Photometric method Ordered By: Rajinder Elliott on 88-54-4856KYK Photometric method (Bld) [Velocity]40 mm/hrHigh0-29The [facility] Medical CenterErythrocytes [#/volume] in Blood by Automated countOrdered By: Rajinder Elliott on 13-76-5925XEX (Bld) [#/Vol]5.18 10*6/uLHigh3.60-5.00The [facility] CenterComment on above:Performed By: #### CBC, ESR, CMP, CRP #### [place] [address] USAGlucose [Mass/volume] in Serum or PlasmaOrdered By: aRjinder Elliott on 14-67-4840Isgqwgf [Mass/Vol]103 mg/rFTlbv06-285HqazmjgyhThe University Of Toledo Medical CenterComment on above:ADA recommended reference rangeRandom Glucose Reference [...] CBC, ESR, CMP, CRP #### [facility] [address] [place] [address] USAHematocrit [Volume Fraction] of Blood by Automated count Ordered By: Rajinder Elliott on 07-49-0185Odrltpgfej (Bld) [Volume fraction]44.6 % 34.0-46.4FSelect Medical Specialty Hospital - Southeast OhioComment on above:Performed By: #### CBC, ESR, CMP, CRP #### [place] [address] USAHemoglobin [Mass/volume] in BloodOrdered By: Rajinder Pattersona on 21-74-6871Vuyiyxyurc (Bld) [Mass/Vol]15.0 g/dL11.8-15.4FSelect Medical Specialty Hospital - Southeast OhioComment on above:Performed By: #### CBC, ESR, CMP, CRP #### [place] [address] USALeukocytes [#/volume] corrected for nucleated erythrocytes in Blood by Automated counOrdered By: Rajinder Pattersona on 87-94-3499FQX corrected for nucl RBC Auto (Bld) [#/Vol]12.1 10*3/uLHigh3.8-11.6FSelect Medical Specialty Hospital - Southeast OhioLeukocytes [#/volume] in Blood by Automated countOrdered By: Rajinder Pattersona on 83-13-1938AAE (Bld) [#/Vol]12.1 10*3/uLHigh3.8-11.6FSelect Medical Specialty Hospital - Southeast OhioComment on above:Performed By: #### CBC, ESR, CMP, CRP #### [place] [address] USALymphocytes [#/volume] in Blood by Automated countOrdered By: Nidtomeka Pattersona on 34-63-7402Drpwcmbabhh (Bld) [#/Vol]1.5 10*3/uL1.00-4.8 The [facility] CenterComment on above:Performed By: #### CBC, ESR, CMP, CRP #### [facility] [address] [place] [address] USALymphocytes/100 leukocytes in Blood by Automated count Ordered By: Rajinder Elliott on 21-77-3932Evzbzttqfyz/100 WBC (Bld)12.4 %.The [facility] Toledo Medical CenterComment on above:Performed By: #### CBC, ESR, CMP, CRP #### [facility] [address] [place] [address] [Entitic mass] by Automated countOrdered By: Rajinder Elliott on 64-18-2773KVH (RBC) [Entitic mass]29.0 pg24.7-34.3FSelect Medical Specialty Hospital - Southeast OhioComment on above:Performed By: #### CBC, ESR, CMP, CRP #### [facility] [address] [place], [place] [address]HC Auto (RBC) [Mass/Vol]Ordered By: Rajinder Elliott on 66-40-9011USOV (RBC) [Mass/Vol]33.6 g/dL32.0-35.0The [facility] Medical CenterMCV [Entitic volume] by Automated countOrdered By: Rajinder Elliott on 93-66-5960ELJ (RBC) [Entitic vol]86.1 kA04-207UqmxvpfkmThe [facility] Of [facility] Center Comment on above:Performed By: #### CBC, ESR, CMP, CRP #### [facility] [address] [place] [address] USAMonocyte distribution width [Entitic volume] in Blood by AutomatedOrdered By: Rajinder Elliott on 40-85-4470Pjgkwnkb distribution width Auto (Bld) [Entitic vol]22.19 %High0.00-20.00The [facility] Toledo Medical CenterComment on above:For adults in ED, MDW > 20.0 may be associated with a higher risk of sepsis during the first 12 hrs of hospital admissionMonocytes [#/volume] in Blood by Automated countOrdered By: Rajinder Elliott on 92-47-9741Qgxtxahpp (Bld) [#/Vol]0.7 10*3/uL0.0-0.8The [facility] CenterComment on above: Performed By: #### CBC, ESR, CMP, CRP #### [facility] [address] [id number] USAMonocytes/100 leukocytes in Blood by Automated count Ordered By: Rajinder Elliott on 99-70-8341Wuthusizh/100 WBC (Bld)6.0 %.The [facility] Medical CenterComment on above:Performed By: #### CBC, ESR, CMP, CRP #### [facility] [address] [place] [address] USANeutrophils [#/volume] in Blood by Automated countOrdered By: Rajinder Elliott on 04-91-0999Vwampmjczfv (Bld) [#/Vol]9.8 10*3/uLHigh1.8-7.7 The [facility] CenterComment on above:Performed By: #### CBC, ESR, CMP, CRP #### [facility] [address] [id number] USANeutrophils/100 leukocytes in Blood by Automated count Ordered By: Raijnder Elliott on 48-92-4807Bxsbvpqykvc/100 WBC (Bld)81.2 %.The [facility] CenterComment on above:Performed By: #### CBC, ESR, CMP, CRP #### [facility] [address] [place] [address] USANo Panel InformationOrdered By: Rajinder Elliott on 11-35-3717Qpddcuodf GFR (CKD-EPI)55.797 mL/MinThe [facility] Of [facility] Creatinine Clearance (Chem62.68[facility] Nucleated erythrocytes [Presence] in Blood by Automated countOrdered By: Rajinder Elliott on 00-98-2509Eyerdaqpy RBC Auto Ql (Bld)0.1 /100{WBC}0-0.5FSelect Medical Specialty Hospital - Southeast OhioPlatelet mean volume [Entitic volume] in Blood by Automated countOrdered By: Rajinder Elliott on 27-57-1753Qjolobtr mean volume (Bld) [Entitic vol]8.6 fL6.3-10.7FSelect Medical Specialty Hospital - Southeast OhioComment on above: Performed By: #### CBC, ESR, CMP, CRP #### [facility] [address] [place] [address] USAPlatelets [#/volume] in Blood by Automated countOrdered By: Rajinder Elliott on 34-61-9221Fsxybgjfy (Bld) [#/Vol]256 10*3/jX047-892 The [facility] CenterComment on above:Performed By: #### CBC, ESR, CMP, CRP #### [facility] [address] [place] [address] USAPotassium [Moles/volume] in Serum or PlasmaOrdered By: Rajinder Elliott on 33-12-4282Yadfuwmug [Moles/Vol]4.1 mmol/L3.5-5.1FSelect Medical Specialty Hospital - Southeast OhioComment on above:Performed By: #### CBC, ESR, CMP, CRP #### [facility] [address] [place] [address] USAProtein [Mass/volume] in Serum or PlasmaOrdered By: Rajinder Elliott on 32-60-4802Nnyzjzd [Mass/Vol]8.3 g/dL6.4-8.9The [facility] Medical CenterComment on above:Performed By: #### CBC, ESR, CMP, CRP #### [facility] [address] [place] [address] USASerum globulin measurement by calculation (mass/volume) Ordered By: Rajinder Elliott on 31-63-4662Igurrfql (S) [Mass/Vol]3.7 g/dLThe University Of Toledo Medical CenterComment on above:Performed By: #### CBC, ESR, CMP, CRP #### [facility] [address] [place] [address] USASerum or plasma albumin/globulin mass ratioOrdered By: Rajinder Elliott on 79-27-0807Wvszglu/Globulin [Mass ratio]1.2 {ratio}The [facility] CenterComment on above:Performed By: #### CBC, ESR, CMP, CRP #### [facility] [address] [place] [address] USASerum or plasma anion gap determinationOrdered By: Rajinder Elliott on 43-30-6572Lgfgb gap [Moles/Vol]11.7 mmol/L6.0-15.0The [facility] CenterComment on above:Performed By: #### CBC, ESR, CMP, CRP #### [facility] [address] [place] [address] USASodium [Moles/volume] in Serum or PlasmaOrdered By: Rajinder Elliott on 47-39-4393Joclsw [Moles/Vol]139 mmol/G342-420VsrnhkajvThe University Of Toledo Medical CenterComment on above:Performed By: #### CBC, ESR, CMP, CRP #### [facility] [address] [place] [address] USAUrea nitrogen [Mass/volume] in Serum or PlasmaOrdered By: Rajinder Elliott on 05-62-0623Oimp nitrogen [Mass/Vol]20 mg/dL7-25The [facility] CenterComment on above:Performed By: #### CBC, ESR, CMP, CRP #### [facility] [address] [place] [address] USABasic Metabolic Panelon 27-40-3339Zbndutskbh Clr Calc Xqwjzofu42.66NormalThe [facility] Physician GroupComment on above:Performed By: #### CBC, CRP, ESR, BMP #### [facility] [address] [place] [address] USAGFR/1.73 sq M.predicted MDRD (S/P/Bld) [Vol rate/Area] mL/min/{1.73_m2}NormalThe [facility] Physician GroupComment on above:Performed By: #### CBC, CRP, ESR, BMP #### [facility] [address] [place] [address] USABasophils [#/volume] in Blood by Automated countOrdered By: Katty Jackson on 02-78-0517Mffzxftus (Bld) [#/Vol]0.1 10*3/uL0.0-0.2FSelect Medical Specialty Hospital - Southeast OhioComment on above:Performed By: #### CBC, CRP, ESR, BMP #### [facility] [address] [place] [address] USABasophils/100 leukocytes in Blood by Automated count Ordered By: Katty Jackson on 32-47-8054Bamzchial/100 WBC (Bld)0.9 %.The [facility] CenterComment on above:Performed By: #### CBC, CRP, ESR, BMP #### [facility] [address] [place], [place] [address] USAC reactive protein [Mass/volume] in Serum or PlasmaOrdered By: Katty Kentb on 44-39-4553SMF [Mass/Vol]< 0.5 mg/dL0.0-0.5FSelect Medical Specialty Hospital - Southeast OhioC-Reactive Proteinon 96-76-2947SYZ [Mass/Vol]mg/LNormal0.0-0.5The [facility] Physician GroupComment on above:Result Comment: PERFORMED BY: [place] [id number] PATHOLOGIST LEGAL ANALYST HARSHAL REY M.D.Performed By: #### CBC, CRP, ESR, BMP #### [address] [address] USACalcium [Mass/volume] in Serum or PlasmaOrdered By: Katty Jackson on 16-47-7324Lwtvqgo [Mass/Vol]9.3 mg/dL8.6-10.3FSelect Medical Specialty Hospital - Southeast OhioComment on above:Performed By: #### CBC, CRP, ESR, BMP #### [facility] [address] [place], [place] [address] USACarbon dioxide, total [Moles/volume] in Serum or Plasma Ordered By: Katty Jackson on 96-67-3035VB0 [Moles/Vol]24.5 mmol/L21.0-31.0 The [facility] CenterComment on above:Performed By: #### CBC, CRP, ESR, BMP #### [facility] [address] [place] [address] USAChloride [Moles/volume] in Serum or PlasmaOrdered By: Kattyjaquan Kentb on 05-62-4149Yrycbmnw [Moles/Vol]108 mmol/LSmdj97-580DrrqjywguThe University Of Toledo Medical CenterComment on above:Performed By: #### CBC, CRP, ESR, BMP #### [place] [address] USAComplete Blood Count Auto Diffon 80-94-3688Eesj Corpuscular HGB Conc33.1 g/cLSeovdn36.0-35.0The [facility] Physician GroupComment on above:Performed By: #### CBC, CRP, ESR, BMP #### [place] [address] USAMonocytes/100 WBC (Bld)18.78 %Normal0.00-20.00The [facility] Physician [facility] HospitalComment on above:Performed By: #### CBC, CRP, ESR, BMP #### [place] [address] USANRBC%0.1 /100{WBC}Normal0-0.5The [facility] Physician Group Comment on above:Performed By: #### CBC, CRP, ESR, BMP #### [place] [address] USAWhite Blood Count7.7 [CFU]/mLNormal3.8-11.6The [facility] Physician [facility] HospitalComment on above:Performed By: #### CBC, CRP, ESR, BMP #### [place] [address] USACreatinine [Mass/volume] in Serum or PlasmaOrdered By: Katty Jackson on 87-73-5875Zscitbcugl [Mass/Vol]1.09 mg/dL0.60-1.20The [facility] CenterComment on above:Performed By: #### CBC, CRP, ESR, BMP #### [place] [address] USAEosinophils [#/volume] in Blood by Automated countOrdered By: Katty Jackson on 21-08-5464Fsowpjqspgr (Bld) [#/Vol]0.1 10*3/uL0.0-0.45 The [facility] CenterComment on above:Performed By: #### CBC, CRP, ESR, BMP #### [place] [address] USAEosinophils/100 leukocytes in Blood by Automated count Ordered By: Katty Jackson on 96-12-4160Qmcngtdjmra/100 WBC (Bld)1.8 %.The [facility] CenterComment on above:Performed By: #### CBC, CRP, ESR, BMP #### [place] [address] USAErythrocyte Sedimentation Rateon 53-58-5549CNP (Bld) [Velocity]23 mm/hNormal0The [facility] Physician GroupComment on above:Result Comment: PERFORMED BY: [place] [address] PATHOLOGIST LEGAL ANALYST HARSHAL REY M.D.Performed By: #### CBC, CRP, ESR, BMP #### [place] [address] USAErythrocyte distribution width [Ratio] by Automated count Ordered By: Katty Jackson on 96-56-5409Wrsqrfkftal distribution width (RBC) [Ratio]13.6 %11.9-15.3FSelect Medical Specialty Hospital - Southeast OhioComment on above: Performed By: #### CBC, CRP, ESR, BMP #### [place] [address] USAErythrocyte sedimentation rate by Photometric method Ordered By: Katty Jackson on 10-66-5768QTN Photometric method (Bld) [Velocity]23 mm/hr0-29The [facility] Medical CenterErythrocytes [#/volume] in Blood by Automated countOrdered By: Katty Jackson on 17-40-9706NAN (Bld) [#/Vol]5.15 10*6/uLHigh3.60-5.00The [facility] CenterComment on above:Performed By: #### CBC, CRP, ESR, BMP #### [place] [address] USAGlucose [Mass/volume] in Serum or PlasmaOrdered By: Katty Jackson on 51-24-7028Zxfmgjk [Mass/Vol]98 mg/gT42-947OgajopsqpThe University [facility] CenterComment on above:ADA recommended reference rangeRandom Glucose Reference [...] By: #### CBC, CRP, ESR, BMP #### [place] [address] USAHematocrit [Volume Fraction] of Blood by Automated count Ordered By: Katty Jackson on 76-33-7777Pwlbndapqs (Bld) [Volume fraction]44.4 % 34.0-46.4FSelect Medical Specialty Hospital - Southeast OhioComment on above:Performed By: #### CBC, CRP, ESR, BMP #### [place] [id number] USAHemoglobin [Mass/volume] in BloodOrdered By: Katty Jackson on 90-31-7407Usswpfegzq (Bld) [Mass/Vol]14.7 g/dL11.8-15.4FSelect Medical Specialty Hospital - Southeast OhioComment on above:Performed By: #### CBC, CRP, ESR, BMP #### [address] [address] USALeukocytes [#/volume] corrected for nucleated erythrocytes in Blood by Automated counOrdered By: Katty Jackson on 59-61-0461IXM corrected for nucl RBC Auto (Bld) [#/Vol]7.7 10*3/uL3.8-11.6FSelect Medical Specialty Hospital - Southeast OhioLeukocytes [#/volume] in Blood by Automated countOrdered By: Katty Jackson on 31-61-0441XCC (Bld) [#/Vol]7.7 10*3/uL3.8-11.6FSelect Medical Specialty Hospital - Southeast OhioComment on above:Performed By: #### CBC, CRP, ESR, BMP #### [address] [address] USALymphocytes [#/volume] in Blood by Automated countOrdered By: Katty Jackson on 68-59-2868Hvspyrdwpnn (Bld) [#/Vol]1.9 10*3/uL1.00-4.8 The [facility] CenterComment on above:Performed By: #### CBC, CRP, ESR, BMP #### [facility] [address] [place] [address] USALymphocytes/100 leukocytes in Blood by Automated count Ordered By: Katty Jackson on 16-81-8824Olosllimgxb/100 WBC (Bld)24.2 %.The [facility] CenterComment on above:Performed By: #### CBC, CRP, ESR, BMP #### [facility] [address] [place], [place] [address]H [Entitic mass] by Automated countOrdered By: Katty Jackson on 01-22-8006JYC (RBC) [Entitic mass]28.5 pg24.7-34.3FSelect Medical Specialty Hospital - Southeast OhioComment on above:Performed By: #### CBC, CRP, ESR, BMP #### [facility] [address] [place], [place] [address]HC Auto (RBC) [Mass/Vol]Ordered By: Katty Jackson on 18-71-2836USLF (RBC) [Mass/Vol]33.1 g/dL32.0-35.0The [facility] CenterMCV [Entitic volume] by Automated countOrdered By: Katty Jackson on 32-60-2000RAX (RBC) [Entitic vol]86.2 dJ54-011YumsevimiThe [facility] Of [facility] Comment on above:Performed By: #### CBC, CRP, ESR, BMP #### [facility] [address] [place] [address] USAMonocyte distribution width [Entitic volume] in Blood by AutomatedOrdered By: Katty Jackson on 63-13-9842Qmipeklb distribution width Auto (Bld) [Entitic vol]18.78 %0.00-20.00The [facility] Medical CenterMonocytes [#/volume] in Blood by Automated countOrdered By: Katty Jackson on 10-12-2024 Monocytes (Bld) [#/Vol]0.4 10*3/uL0.0-0.8[facility] Comment on above:Performed By: #### CBC, CRP, ESR, BMP #### [facility] [address] [place] [address] USAMonocytes/100 leukocytes in Blood by Automated count Ordered By: Katty Jackson on 84-94-6334Nrfrtamnv/100 WBC (Bld)5.3 %.The [facility] CenterComment on above:Performed By: #### CBC, CRP, ESR, BMP #### [facility] [address] [place] [address] USANeutrophils [#/volume] in Blood by Automated countOrdered By: Katty Jackson on 87-41-9623Tmsicwcsvqf (Bld) [#/Vol]5.2 10*3/uL1.8-7.7 The [facility] CenterComment on above:Performed By: #### CBC, CRP, ESR, BMP #### [facility] [address] [place] [address] USANeutrophils/100 leukocytes in Blood by Automated count Ordered By: Katty Jackson on 68-35-1430Meffecubbdn/100 WBC (Bld)67.8 %.The [facility] CenterComment on above:Performed By: #### CBC, CRP, ESR, BMP #### [facility] [address] [place] [address] USANo Panel InformationOrdered By: Katty Jackson on 10-12-2024 Estimated GFR (CKD-EPI)> 60.0 mL/MinThe University Of Toledo Medical CenterPharmacy Creatinine Clearance (Chem67.66The [facility] Medical CenterNucleated erythrocytes [Presence] in Blood by Automated countOrdered By: Katty Jackson on 69-00-1981Hlgofshgk RBC Auto Ql (Bld)0.1 /100{WBC}0-0.5FSelect Medical Specialty Hospital - Southeast OhioPlatelet mean volume [Entitic volume] in Blood by Automated count Ordered By: Katty Jackson on 32-85-2959Ruszphof mean volume (Bld) [Entitic vol]8.3 fL6.3-10.7FSelect Medical Specialty Hospital - Southeast OhioComment on above:Performed By: #### CBC, CRP, ESR, BMP #### [facility] [address] [place] [address] USAPlatelets [#/volume] in Blood by Automated countOrdered By: Katty Jackson on 38-89-2396Jjtrijhej (Bld) [#/Vol]272 10*3/tM981-606BxisynjhhThe University Of [facility]edo Medical CenterComment on above:Performed By: #### CBC, CRP, ESR, BMP #### [facility] [address] [place] [address] USAPotassium [Moles/volume] in Serum or PlasmaOrdered By: Kattyjaquan Kentb on 65-27-3026Lxrvpqdxe [Moles/Vol]4.0 mmol/L3.5-5.1FSelect Medical Specialty Hospital - Southeast OhioComment on above:Performed By: #### CBC, CRP, ESR, BMP #### [facility] [address] [place] [address] USASerum or plasma anion gap determinationOrdered By: Kattyjaquan Kentb on 71-93-6455Mntce gap [Moles/Vol]11.5 mmol/L6.0-15.0The [facility] CenterComment on above:Performed By: #### CBC, CRP, ESR, BMP #### [facility] [address] [place] [address] USASodium [Moles/volume] in Serum or PlasmaOrdered By: Kattyjaquan Kentb on 60-26-8745Uhqgpc [Moles/Vol]140 mmol/X495-736ZraicmkteThe University Of Toledo Medical CenterComment on above:Performed By: #### CBC, CRP, ESR, BMP #### [facility] [address] [place] [address] USAUrea nitrogen [Mass/volume] in Serum or PlasmaOrdered By: Katty Manuel on 60-62-1053Qkre nitrogen [Mass/Vol]20 mg/dL7-25The [facility] CenterComment on above:Performed By: #### CBC, CRP, ESR, BMP #### [place] [id number] [facility] SERVICESALL CBC WITH AUTO DIFFon 84-77-9547XZGKMSLWV ABSOLUTE AUTO 0NOMS HealthcareBasophils/100 WBC (Bld)0.4 %0.2 - 2.0 %[facility] Eosinophils/100 WBC (Bld)2.7 %0.9 - 7.0 %NOMS HealthcareErythrocyte distribution width (RBC) [Ratio]13.6 %11.0 - 15.0 %NOMS HealthcareHematocrit (Bld) [Volume fraction]40.7 %36.0 - 48.0 %NOMS HealthcareHemoglobin (Bld) [Mass/Vol]13.5 g/dL 12.0 - 16.0 g/dLNOPA HealthcareIMMATURE GRANULOCYTES ABS AUTO0.02[facility] Immature granulocytes/100 WBC (Bld)0.3 %0.0 - 0.5 %NOMS HealthcareInterpretation and review of laboratory resultsAbnormalNOMS HealthcareLYMPHOCYTES ABSOLUTE AUTO2.3NOMS HealthcareLymphocytes/100 WBC (Bld)30.6 %20.5 - 60.0 %NOMChildren's Mercy HospitalH (RBC) [Entitic mass]28.8 pg26.7 - 34.0 pgNOPike County Memorial HospitalHC (RBC) [Mass/Vol]33.2 g/dL29.9 - 35.2 g/dLNOSSM Saint Mary's Health CenterMCV (RBC) [Entitic vol]87 fL 81.0 - 99.0 fLNOPA HealthcareMONOCYTES ABSOLUTE AUTO0.4N[facility] Monocytes/100 WBC (Bld)5.3 %1.7 - 12.0 %NOMS HealthcareNEUTROPHILS ABSOLUTE AUTO 4.5NOMS HealthcareNeutrophils/100 WBC (Bld)60.7 %43.0 - 75.0 %NOMCrittenton Behavioral Health Platelet mean volume (Bld) [Entitic vol]9.4 fLLow9.5 - 13.5 fLNOMS [facility] EastTBH EO #0.2NOMS HealthcareTB POY108CVOH [facility] EastTB RBC4.68NOMS [facility] EastTB WBC 7.4NOMS HealthcareCLINISYNCNOMS HealthcareMM TOMOSYNTHESIS SCREENING BIon 91-32-1241[address] [address] Mammography Report Signed Patient: CINTHIA BADILLO MR#: [id number] : 1970 Acct:[id number] Age/Sex: 53 / F ADM Date: 01/21/24 Loc: MAMMO Attending Dr: Kamilla Patton NP Ordering Physician: Kamilla Patton NP Results: Date of Service: 01/21/24 Follow Up: Procedure(s): MM tomosynthesis screening BI Accession Number(s): [id number] cc: Kamilla Patton NP Patient Name: CINTHIA BADILLO MR#: [id number] : 1970 Exam Date: 01/21/2024 Ordering Doctor: ZELALEM Patton CNP RADIOLOGY REPORT PROCEDURE: MM TOMOSYNTHESIS SCREENING BI COMPARISON: MG MAMM SCREEN 3D LEE CAD, 06/16/2022. MG MAMM SCREEN 3D LEE CAD, 03/26/2021. MG MAMM SCREEN 3D LEE CAD, 05/01/2019. MG MAMM SCREEN LEE W CAD, 10/10/2014. INDICATIONS: Screening Calculator Name NCI Breast Cancer Risk Assessment Tool 5 Year Breast Cancer Risk 0.90% Lifetime Breast Cancer Risk 7.10% Personal Breast Cancer No Personal Ovarian Cancer No Treatments None Family Cancers Grandmother-maternal with breast cancer at age 79. LOCATION: [facility] BREAST COMPOSITION: There are scattered areas of fibroglandular density. FINDINGS: DIAGNOSTIC CATEGORY 1--NEGATIVE. RIGHT BREAST: No significant suspicious finding. No significant change has occurred. LEFT BREAST: No significant suspicious finding. No significant change has occurred. RECOMMENDATIONS: ROUTINE MAMMOGRAM AND CLINICAL EVALUATION IN 12 MONTHS. PLEASE NOTE: A NORMAL MAMMOGRAM DOES NOT EXCLUDE THE POSSIBILITY OF BREAST CANCER. A CLINICALLY SUSPICIOUS PALPABLE LUMP SHOULD BE BIOPSIED. Dictated by: Jerica Hooper M.D. on 01/21/2024 at 11:04 Approved by: Jerica Hooper M.D. on 01/21/2024 at 11:06 Dictated By: Jerica Hooper M.D. Signed By: 01/21/24 1107 DD/ 1106 TD/TT: Director Validation:TBHRadiology, Radiologist, MD - 01/21/2024 [place] [address] Mammography Report Signed Patient: CINTHIA BADILLO MR#: [id number] : 1970 Acct:[id number] Age/Sex: 53 / F ADM Date: 01/21/24 Loc: MAMMO Attending Dr: Kamilla Patton NP Ordering Physician: Kamilla Patton NP Results: Date of Service: 01/21/24 Follow Up: Procedure(s): MM tomosynthesis screening BI Accession Number(s): [id number] cc: Kamilla Patton NP Patient Name: CINTHIA BADILLO MR#: [id number] : 1970 Exam Date: 01/21/2024 Ordering Doctor: ZELALEM Patton CNP RADIOLOGY REPORT PROCEDURE: MM TOMOSYNTHESIS SCREENING BI COMPARISON: MG MAMM SCREEN 3D LEE CAD, 06/16/2022. MG MAMM SCREEN 3D LEE CAD, 03/26/2021. MG MAMM SCREEN 3D LEE CAD, 05/01/2019. MG MAMM SCREEN LEE W CAD, 10/10/2014. INDICATIONS: Screening Calculator Name NCI Breast Cancer Risk Assessment Tool 5 Year Breast Cancer Risk 0.90% Lifetime Breast Cancer Risk 7.10% Personal Breast Cancer No Personal Ovarian Cancer No Treatments None Family Cancers Grandmother-maternal with breast cancer at age 79. LOCATION: [facility] BREAST COMPOSITION: There are scattered areas of fibroglandular density. FINDINGS: DIAGNOSTIC CATEGORY 1--NEGATIVE. RIGHT BREAST: No significant suspicious finding. No significant change has occurred. LEFT BREAST: No significant suspicious finding. No significant change has occurred. RECOMMENDATIONS: ROUTINE MAMMOGRAM AND CLINICAL EVALUATION IN 12 MONTHS. PLEASE NOTE: A NORMAL MAMMOGRAM DOES NOT EXCLUDE THE POSSIBILITY OF BREAST CANCER. A CLINICALLY SUSPICIOUS PALPABLE LUMP SHOULD BE BIOPSIED. Dictated by: Jerica Hooper M.D. on 01/21/2024 at 11:04 Approved by: Jerica Hooper M.D. on 01/21/2024 at 11:06 Dictated By: Jerica Hooper M.D. Signed By: 01/21/24 1107 DD/ 1106 TD/TT: Director Validation: [facility] HealthcareRadiology Study observation (narrative)[facility] HospitalMM TOMOSYNTHESIS SCREENING BIOrdered By: Radiologist Radiology on 27-91-4924ZKSF [email or web address] Work Phone: ambulatory Visit Summaryon 61-06-2357Bzfqohyroy Visit SummaryAmbulatory Visit Summary CINTHIA BADILLO :1970 [...] Soft Calcium Chews) omega-3 polyunsaturated fatty acids (Lisle-3 oral capsule) pantoprazole (Pantoprazole [address] [...] or concerns Unchanged omega-3 polyunsaturated fatty acids (Lisle-3 oral capsule) Contact prescribing physician if questions [...] You may need t (more content not included)...[facility] CenterUrology Office/Clinic Noteon 27-47-6950Hberdbd Office/Clinic NoteUrology Office/Clinic Note Chief Complaint 1yr [...] with voice recognition artificial intelligence software, specifically TranSiC, Pound Rockout Workout and or Teramind. Substitutions may have occurred due to the [...] 07/02/22 Stone analysis done 07/06/22 - CaOx Major 80% & CaOx Dihy 20% KUB 07/29/22 - grossly stable Lt Nephrolithiasis S/p Cysto/L URS/L stone basket extraction 08/13/22 Stone Analysis 08/14/22 - CaOx Major 90% & CaOx Dihy 10% KUB 12/26/22 [...] Urnls Dip Stick Auto w/o Microscopy POC [id number] Follow-up With When Contact Information Aretha SHARPE, EMY-C, Sena X, FAM, URL Additional Instructions: Patient Education Kidney Stones, Yxbl-ab-Ezqj Dietary Guidelines to Help Prevent Kidney Stones Problem List/Past Medical History Ongoing Arthritis Asthma Gallstones Gastroesophageal reflux disease Kidney stone Left flank pain Historical No qualifying data Procedure/Surgical History Rigid cystoscopy (08/13/2022), ESWL of kidney (07/02/2022), Cholecystectomy, Hysterectomy. Medications Acidophilus Probiotic Blend, Oral, Daily amitriptyline 50 mg Tab Cranberry Cornel Root Melatonin, Once a day (at bedtime) multivitamin, Daily Lisle-3 oral capsule Pantoprazole [address] aWrren Viactiv Soft Calcium Chews Vitamin C, Daily [...] Comments influenza, unspecified formulation 12/27/2022 Recorded SARSCoV2 mRNA(pixvpdzwz-bgms-wepfwi) vac 10/09/2021 Recorded SARS-CoV-2 (COVID-19) mRNA BNT-162b2 vax 02/13/2021 Recorded SARS-CoV-2 (COVID-19) mRNA BNT-162b2 vax 05/08/2020 Recorded 2022-06-22: TPV40 SARS-CoV-2 (COVID-19) mRNA BNT-162b2 vax 04/06/2020 Recorded 2022-06-22: TPV40 SARS-CoV-2 (COVID-19) mRNA BNT-162b2 vax 04/02/2020 Recorded 2022-06-22: TPV40 diphtheria/pertussis, acel/tetanus adult 07/17/2009 Recorded Lab Results Ambulatory Point of Car (more content not included)...[facility] CenterComment on above:Result Comment: Electronically Signed By: GENNA Carias APRN, [place] X\.br\Date and Time Signed: 01/18/24 15:57 ESTXR ABDOMEN 1Von 95-63-9097[address] [address] XRay Report Signed Patient: CINTHIA BADILLO MR#: [id number] : 1970 Acct:[id number] Age/Sex: 53 / F ADM Date: 01/15/24 Loc: RAD Attending Dr: Anand Krueger M.D. Ordering Physician: Anand Krueger M.D. Date of Service: 01/15/24 Procedure(s): XR abdomen 1V Accession Number(s): [id number] cc: Kamilla Patton NP; Anand Krueger M.D. The [address] [address] Patient Name: CINTHIA BADILLO MRN: [facility]:[id number] date: 1970 Sex: F Assigned Patient Location: RAD Current Patient Location: Accession/Order Number: [id number] Exam Date: 01/15/2024 12:40 Report Date: 01/16/2024 07:15 At the request of: ANAND KRUEGER Procedure: XR abdomen 1V EXAMINATION: XR abdomen 1V HISTORY: kidney stone 20.0 COMPARISON: XR abdomen 12/26/2022 FINDINGS: KIDNEY/URETER - RIGHT: No visible renal or ureteral calcifications. KIDNEY/URETER - LEFT: Tiny calcification projecting over inferior pole of kidney. PELVIS: No visible ureteral stones. Stable pelvic calcifications favoring phleboliths. BOWEL: Large amount of stool throughout the colon. No abnormal bowel dilation. BONES: No acute abnormality. OTHER: Negative. No abnormal gaseous collections. XR/XR abdomen 1V IMPRESSION: 1. Suspect left nephrolithiasis. Electronically authenticated by: JERICA HOOPER Date: 01/16/2024 07:15 Dictated By: Jerica Hooper M.D. Signed By: 01/16/24717 DD/ 4 TD/TT: Director Validation:ARTEMHRadiology, Radiologist, MD - 01/16/2024 [place] [address] XRay Report Signed Patient: CINTHIA BADILLO MR#: [id number] : 1970 Acct:[id number] Age/Sex: 53 / F ADM Date: 01/15/24 Loc: RAD Attending Dr: Anand Krueger M.D. Ordering Physician: Anand Krueger M.D. Date of Service: 01/15/24 Procedure(s): XR abdomen 1V Accession Number(s): [id number] cc: Kamilla Patton NP; Anand Krueger M.D. [place] [address] Patient Name: CINTHIA BADILLO MRN: [id number] date: 1970 Sex: F Assigned Patient Location: [facility] Current Patient Location: Accession/Order Number: [id number] Exam Date: 01/15/2024 12:40 Report Date: 01/16/2024 07:15 At the request of: ANAND KRUEGER Procedure: XR abdomen 1V EXAMINATION: XR abdomen 1V HISTORY: kidney stone 20.0 COMPARISON: XR abdomen 12/26/2022 FINDINGS: KIDNEY/URETER - RIGHT: No visible renal or ureteral calcifications. KIDNEY/URETER - LEFT: Tiny calcification projecting over inferior pole of kidney. PELVIS: No visible ureteral stones. Stable pelvic calcifications favoring phleboliths. BOWEL: Large amount of stool throughout the colon. No abnormal bowel dilation. BONES: No acute abnormality. OTHER: Negative. No abnormal gaseous collections. XR/XR abdomen 1V IMPRESSION: 1. Suspect left nephrolithiasis. Electronically authenticated by: JERICA HOOPER Date: 01/16/2024 07:15 Dictated By: Jerica Hooper M.D. Signed By: 01/16/24717 DD/ 4 TD/TT: Director Validation: [facility] HealthcareRadiology Study observation (narrative)[facility] HealthcareXR ABDOMEN 1VOrdered By: Radiologist Radiology on 62-98-0543SRIMSalem Memorial District Hospital Work Phone: ammonium urate crystals detection in stone by infrared spectroscopyOrdered By: Anand Krueger on 19-30-0782Fwedahjj urate crystals Infrared spectroscopy Ql (Stone)N/[facility] HospitalCalcium bilirubinate measurementOrdered By: Anand Krueger on 83-64-4285Ktnmxsp bilirubinate (Stone) [Mass fraction]N/[facility] HospitalCalcium carbonate measurementOrdered By: Anand Krueger on 45-68-9059Mmwjivz carbonate (Stone) [Mass fraction]N/[facility] HospitalCalcium hydrogen phosphate dihydrate/Total in StoneOrdered By: Anand Krueger on 08-13-2022 Calcium hydrogen phosphate dihydrate (Stone) [Mass fraction]N/[facility] HospitalCalcium oxalate dihydrate crystals detection in stone by infrared spectroscopyOrdered By: Anand Krueger on 81-01-0769Sbpmmgm oxalate dihydrate crystals Infrared spectroscopy Ql (Stone)10 %.[facility] CenterCalcium oxalate monohydrate/Total in StoneOrdered By: Anand Krueger on 91-77-4138Tfdukfy oxalate monohydrate (Stone) [Mass fraction]90 %. [facility] CenterCalcium phosphate measurementOrdered By: Anand Krueger on 51-73-8740Nlsflmx phosphate (Stone) [Mass fraction]N/A [facility] CenterCalculus analysis interpretation in stone Ordered By: Anand Krueger on 02-03-3379Gdqysvub analysis [Interp]N/[facility] HospitalCalculus analysis [Interp]See comment.[facility] CenterComment on above:Calculus received wet. Wet calculi must be dried beforeanalysis, which delays reporting of results.Leaving calculiwet (such as water, saline, blood, urine) may lead tochanges in composition.Physician questions regarding Calculi Analysis contactScott County HospitalCo at: [phone].Calculi report will follow via computer, mail or courierdelivery.Calculus analysis with calculus photography interpretation in stoneOrdered By: Anand Krueger on 08-26-2771Jqpfgpsl analysis with calculus photography [Interp]See comment. [facility] CenterComment on above:Photograph will follow under a separate coverCellular material measurement in stone by estimated (mass/mass) Ordered By: Anand Krueger on 62-64-6094Iinjtlpq material Est (Stone) [Mass/Mass]N/[facility] HospitalCholesterol/Total in StoneOrdered By: Anand Krueger 78-54-2856Kdbcostbzsc (Stone) [Mass fraction]N/[facility] HospitalComposition of stoneOrdered By: Anand Krueger on 70-02-9025Krpbvevbkem Nom (Stone)See comment.[facility] Comment on above:Percentage (Represents the % composition)Cystine measurement Ordered By: Anand Krueger on 31-13-8809Zszhapm (Unsp spec) [Moles/Vol]N/A [facility] CenterDetermination of color of calculusOrdered By: Anand Krueger on 06-69-7039Cyxbx (Stone)Brown.[facility] Hydroxyapatite [Energy Difference] in 24 hour UrineOrdered By: Anand Krueger on 97-77-8621Derhwjsfbwfbjg (24H U) [Energy diff]/[facility] HospitalMeasurement of proportion of calculus composed of dried blood (mass/mass) Ordered By: Anand Krueger on 97-25-2640Uywep.dried (Stone) [Mass fraction]N/A [facility] CenterNewberyite/Total in StoneOrdered By: Anand Krueger on 45-08-2552Jirbidozru (Stone) [Mass fraction][facility] CenterNo Panel InformationOrdered By: Anand Krueger on 35-05-8610Fprru 2,8 DihydroxyadenineKindred Hospital Daytontone Analysis DisclaimerSee comment.[facility] CenterComment on above:This test was developed and its performance characteristicsdetermined by [employer]. It has not been cleared or approvedby the Food and Drug Administration.Performed at: [address] [id number] Director: Mike Valladares PhD, Phone: [phone] BilirubinFour County Counseling Center/[facility] Hospitaltone Calcium PalmitateN/[facility] Hospitaltone Calcium StearFour County Counseling Center/[facility] Hospitaltone Carbonate ApatiteN/[facility] Hospitaltone Drug or MetaboliteN/[facility] Hospitaltone Other ConstituentN/[facility] Hospitaltone XanthineN/[facility]uff[facility] Hospitalize [Entitic volume] of StoneOrdered By: Anand Krueger on 30-96-9656Kpgk (Stone) [Entitic vol]4x4 mm. [facility] CenterComment on above:Multiple pieces received. Dimensions of the largest piecereported.Sodium urate crystals detection in stone by infrared spectroscopyOrdered By: Anand Krueger on 34-15-5593Zhhfjs urate crystals Infrared spectroscopy Ql (Stone)[facility] Specimen source subject [Type]Ordered By: Anand Krueger on 29-55-9197Vsjiraeu source subject NomSee comment.[facility] CenterComment on above: Left KidneyTriamterene measurement in calculusOrdered By: Anand Krueger on 66-20-8706Unbtvxvwpbe (Stone) [Mass fraction][facility] CenterTriple phosphate/Total in StoneOrdered By: Anand Krueger on 08-13-2022 Triple phosphate (Stone) [Mass fraction][facility] CenterUric acid dihydrate crystals detection in stone by infrared spectroscopyOrdered By: Anand Krueger on 23-41-2631Sgsxl dihydrate crystals Infrared spectroscopy Ql (Stone)NSelect Medical Specialty Hospital - AkronCBC AUTO DIFFon 54-45-7704KIFP #0.0 103/ulNormal0.0-0.1The [facility] HospitalComment on above:Performed By: #### PTT, PT #### [facility] [address] [place] [address] Dr. Judy RamirezBasophils/100 WBC (Bld)0.5 %Normal0.2-2.0[facility] Comment on above:Performed By: #### PTT, PT #### [facility] [address] [place] [address] Dr. Judy Suarez #0.1 103/ulNormal0.0-0.7The [facility] HospitalComment on above: Performed By: #### PTT, PT #### [facility] [address] [place] [address] Dr. Judy Tapiaosinophils/100 WBC (Bld)1.6 %Normal0.9-7.0[facility] Comment on above:Performed By: #### PTT, PT #### [facility] [address] [place] [address] Dr. Judy Tapiarythrocyte distribution width (RBC) [Ratio]12.8 %Gjouyu25.0-15.0 The [facility] HospitalComment on above:Performed By: #### PTT, PT #### [facility] [address] [place] [address] Dr. Judy RamirezHematocrit (Bld) [Volume fraction]40.7 %Kghfij62.0-48.0The [facility] HospitalComment on above:Performed By: #### PTT, PT #### [facility] [address] [place] [address] Dr. Judy RamirezHemoglobin (Bld) [Mass/Vol]13.5 g/mHPwlahl03.0-16.0The [facility] HospitalComment on above:Performed By: #### PTT, PT #### [facility] [address] [place] [address] Dr. Judy Durant #0.02 10e3/ulNormal0.00-0.03The [facility] HospitalComment on above:Performed By: #### PTT, PT #### [facility] [address] [place] [address] Dr. Judy Durant %0.3 %Normal0.0-0.5The [facility] HospitalComment on above: Performed By: #### PTT, PT #### [facility] [address] [place] [address] Dr. Judy Baker #2.6 103/ulNormal1.2-3.8The [facility] HospitalComment on above:Performed By: #### PTT, PT #### [facility] [address] [place] [address] Dr. Judy Jacksonhocytes/100 WBC (Bld)33.9 %Xfloug58.5-60.0The [facility] HospitalComfresenius medical care at [facility] on above:Performed By: #### PTT, PT #### [facility] [address] [place] [address] Dr. Judy MoctezumaUAL DIFF REQNONormalThe [facility] HospitalComment on above: Performed By: #### PTT, PT #### [facility] [address] [place] [address] Dr. Judy Salvador (RBC) [Entitic mass]28.5 rbGbxlol86.7-34.0The [facility] HospitalComment on above:Performed By: #### PTT, PT #### [facility] [address] [address] [address] Judy Fry (RBC) [Mass/Vol]33.2 g/pKOqkcom33.9-35.2The [facility] HospitalComment on above:Performed By: #### PTT, PT #### [facility] [address] [place] [address] Dr. Judy FryV (RBC) [Entitic vol]86.0 kJDvtgsn05.0-99.0The [facility] HospitalComment on above:Performed By: #### PTT, PT #### [facility] [address] [place] [address] Dr. Judy Menendez #0.4 103/ulNormal0.3-0.8The [facility] HospitalComment on above:Performed By: #### PTT, PT #### [facility] [address] [place] [address] Dr. Judy Wellsocytes/100 WBC (Bld)5.6 %Normal1.7-12.0[facility] Comment on above:Performed By: #### PTT, PT #### [facility] [address] [place] [address] Dr. Judy Iglesias #4.4 103/ulNormal1.4-6.5The [facility] HospitalComment on above:Performed By: #### PTT, PT #### [facility] [address] [place] [address] Dr. Judy Galeanoutrophils/100 WBC (Bld)58.1 %Oxkptg02.0-75.0The [facility] HospitalComment on above:Performed By: #### PTT, PT #### [facility] [address] [place] [address] Dr. Judy Ruedalet mean volume (Bld) [Entitic vol]9.4 fLCritically low 9.5-13.5The [facility] HospitalComment on above:Performed By: #### PTT, PT #### [facility] [address] [place] [address] Dr. Judy RamirezPLT285 103/tkLcafqo080-220Zti [facility] HospitalComment on above: Performed By: #### PTT, PT #### [facility] [address] [address] [address] Judy RamirezRBC4.73 106/ulNormal4.20-5.40The [facility] HospitalComment on above:Performed By: #### PTT, PT #### [facility] [address] [place] [address] Dr. Judy RamirezWBC7.6 103/ulNormal4.0-11.0The [facility] HospitalComment on above: Performed By: #### PTT, PT #### [facility] [address] [place] [address] Dr. Judy AmezquitaF CHEM 8 (BAS METB)on 94-03-6042Rnvwu gap [Moles/Vol]9.8 mmol/LNormalThe [facility] HospitalComment on above:Performed By: #### PTT, PT #### [facility] [address] [place] [address] Dr. Judy RamirezCalcium [Mass/Vol]9.3 mg/dLNormal8.5-10.1[facility] Comment on above:Performed By: #### PTT, PT #### [facility] [address] [place] [address] Dr. Judy RamirezChloride [Moles/Vol]105 mmol/ZKxjbtf88-672Top [facility] Comment on above:Performed By: #### PTT, PT #### [facility] [address] [place] [address] Dr. Judy RamirezCO2 [Moles/Vol]30.4 mmol/PKtdnut38.0-32.0[facility] Comment on above:Performed By: #### PTT, PT #### [facility] [address] [place] [address] Dr. Judy RamirezCreatinine [Mass/Vol]1.15 mg/dLCritically high0.55-1.02The [facility] HospitalComment on above:Performed By: #### PTT, PT #### [facility] [address] [place] [address] Dr. Judy TapiaGFR-AF LDFQYDXY93 mL/min/1.27m4Cvvsmz>=60[facility] Comment on above:Performed By: #### PTT, PT #### [facility] [address] [address] [address] Judy TapiaGFR-NON AF SWNRKZRM15 mL/min/1.55j3Azsagcljat low>=60The [facility] HospitalComment on above:Performed By: #### PTT, PT #### [facility] [address] [place] [address] [address] Judy RamirezGlucose [Mass/Vol]95 mg/zJEoprcs21-458Xck [facility] Comment on above:Performed By: #### PTT, PT #### [facility] [address] [place] [address] Dr. Judy RamirezPotassium [Moles/Vol]4.2 mmol/LNormal3.5-5.1[facility] Comment on above:Performed By: #### PTT, PT #### [facility] [address] [place] [address] Dr. Judy RamirezSodium [Moles/Vol]141 mmol/HQzoenz068-185Mhe [facility] Comment on above:Performed By: #### PTT, PT #### [facility] [address] [place] [address] Dr. Judy RamirezUrea nitrogen [Mass/Vol]24.0 mg/dLCritically high7.0-18.0The [facility] HospitalComment on above:Performed By: #### PTT, PT #### [facility] [address] [place] [address] Dr. Judy RamirezUrea nitrogen/Creatinine [Mass ratio]20.9 mg/mgNormalThe [facility] HospitalComment on above:Performed By: #### PTT, PT #### [facility] [address] [place] [address] Dr. Judy RamirezPROTIMEon 71-24-1182LHW Coag (PPP) [Relative time]{INR}NormalThe [facility] Valley HospitalComment on above:Performed By: #### PTT, PT #### [facility] [address] [place] [address] Dr. Judy Chi [facility] HOSPITALE Gal[facility] HospitalComment on above:Result Comment: DESIRED INR: 2.0 - 3.0 CONDITIONS NOT LISTED BELOW 2.5 - 3.5 FOR PROSTHETIC HEART VALVE REPLACEMENT 2.5 - 3.5 RECURRENT THROMBOSIS Performed By: #### PTT, PT #### [facility] [address] [place] [address] Dr. Judy Toribio Coag (PPP) [Time]9.7 sNormal9.0-11.6[facility] Comment on above:Performed By: #### PTT, PT #### [facility] [address] [place] [address] Dr. Judy Flores 60-67-9400vJZL Coag (Bld) [Time]33.6 vXjvzru59.3-36.2[facility] CenterComment on above:Performed By: #### PTT, PT #### [facility] [address] [place] [address] Dr. Judy Kellogg, URINARYon ,8 DihydroxyadenineCincinnati Children's Hospital Medical CenterComment on above:Performed By: #### PTT, PT #### [facility] [address] [place] [address] Dr. Judy Brown Acid UrateNormalMetrohealth Cleveland Heights Medical CenterComment on above: Performed By: #### PTT, PT #### [facility] [address] [place] [address] Dr. Judy Moralesirubin Ql (U)NormalMetrohealth Cleveland Heights Medical CenterComment on above: Performed By: #### PTT, PT #### [facility] [address] [place] [address] Dr. Judy Olson Oxalate Gpyyxmmts20 %NormalMetrohealth Cleveland Heights Medical CenterComment on above:Performed By: #### PTT, PT #### [facility] [address] [place] [address] Dr. Judy OlsonHPO4 (Brushite)NormalCleveland Clinic Marymount Hospital HospitalComment on above: Performed By: #### PTT, PT #### [facility] [address] [address] [address] Judy Hooverium BilirubinateNormalMercer County Community Hospital on above: Performed By: #### PTT, PT #### [facility] [address] [address] [address] Judy Hooverium CarbonateNoUniversity Hospitals Elyria [facility] Center on above: Performed By: #### PTT, PT #### [facility] [address] [address] [address] Judy Hooverium Oxalate Tmethpqmgun00 %NormalMercer County Community Hospital on above:Performed By: #### PTT, PT #### [facility] [address] [address] [address] Judy Hooverium PalmitateGuernsey Memorial Hospital on above: Performed By: #### PTT, PT #### [facility] [address] [address] [address] Judy Hooverium PhosphateNoUniversity Hospitals Elyria Medical Center on above: Performed By: #### PTT, PT #### [facility] [address] [address] [address] Judy Hooverium StearateNormalMercer County Community Hospital on above: Performed By: #### PTT, PT #### [facility] [address] [address] [address] Judy RamirezCarbonate ApatiteGuernsey Memorial Hospital on above: Performed By: #### PTT, PT #### [facility] [address] [address] [address] Judy RamirezCellular MaterialGuernsey Memorial Hospital on above: Performed By: #### PTT, PT #### [facility] [address] [address] [address] Judy RamirezCholesterolGuernsey Memorial Hospital on above:Performed By: #### PTT, PT #### [facility] [address] [address] [address] Judy Friedman (U)[facility] on above: Performed By: #### PTT, PT #### [facility] [address] [address] [address] McmullenUniversity Hospitals [address] John Medical Center on above:Performed By: #### PTT, PT #### [facility] [address] [address] [address] Judy Manzo:CommentGuernsey Memorial Hospital on above:Result Comment: Physician questions regarding Calculi Analysis contact [facility] at: [phone].Performed By: #### PTT, PT #### [facility] [address] [address] [address] Judy McmullenPremier Health on above: Result Comment: Percentage (Represents the % composition)Performed By: #### PTT, PT #### [facility] [address] [address] [address] Judy RamirezCincinnati Children'S Hospital Medical CentertineGuernsey Memorial Hospital on above:Performed By: #### PTT, PT #### [facility] [address] [address] [address] Judy Richmond:CommentGuernsey Memorial Hospital on above: Result Comment: This test was developed and its performance characteristics determined by [facility]. It has not been cleared or approved by the Food and Drug Administration.Performed By: #### PTT, PT #### [facility] [address] [address] [address] Judy Lion BloodGuernsey Memorial Hospital on above:Performed By: #### PTT, PT #### [facility] [address] [address] [address] Judy Mcneil or MetaboliteGuernsey Memorial Hospital on above: Performed By: #### PTT, PT #### [facility] [address] [address] [address] Judy RamirezHydroxyapatiteGuernsey Memorial Hospital on above: Performed By: #### PTT, PT #### [facility] [address] [address] [address] Judy RamirezMg NH4 PO4 (Struvite)[facility] Centerment on above: Performed By: #### PTT, PT #### [facility] [address] [address] [address] Judy RamirezMgHPO4 (Newberyite)[facility] Medical CenterComfresenius medical [facility] at [facility] on above: Performed By: #### PTT, PT #### [facility] [address] [place] [address] Dr. Judy RamirezOther component(s)[facility] Medical CenterComment on above: Performed By: #### PTT, PT #### [facility] [address] [place] [address] Dr. Judy VirgenF.[facility] on above:Performed By: #### PTT, PT #### [facility] [address] [place] [address] Dr. Judy MartinGuernsey Memorial Hospital on above:Result Comment: Photograph will follow under a separate coverPerformed By: #### PTT, PT #### [facility] [address] [place] [address] Dr. Judy Fairchild note:CommentGuernsey Memorial Hospital on above: Result Comment: Calculi report will follow via computer, mail or figure clerk delivery.Performed By: #### PTT, PT #### [facility] [address] [place] [address] Dr. Judy HigginsPhuwtHldm9w1GwpcaiNdkUniversity Hospitals [facility] on above:Result Comment: Multiple pieces received. Dimensions of the largest piece reported.Performed By: #### PTT, PT #### [facility] [address] [place] [address] Dr. Judy Carlos Acid UrateNTogus VA Medical Center on above: Performed By: #### PTT, PT #### [facility] [address] [place] [address] Dr. Judy FrankommentGuernsey Memorial Hospital on above:Result Comment: Not providedPerformed By: #### PTT, PT #### [facility] [address] [place] [address] Dr. Judy ValenciamtCommunity Regional Medical Center on above:Performed By: #### PTT, PT #### [facility] [address] [place] [address] Dr. Judy RamirezUric AcidGuernsey Memorial Hospital on above:Performed By: #### PTT, PT #### [facility] [address] [place] [address] Dr. Judy RamirezUric Acid DihydrateNTogus VA Medical Center on above: Performed By: #### PTT, PT #### [facility] [address] [place] [address] Dr. Judy Hale47 [facility] ToledoComfresenius [facility] on above:Performed By: #### PTT, PT #### [facility] [address] [place] [address] Dr. Judy ThakkarKettering Health Main Campus on above:Performed By: #### PTT, PT #### [facility] [address] [place] [address] Dr. Judy RamirezXR KUB 1 VIEWon [id number] KUB 1 VIEWEXAMINATION: XR KUB 1 VIEW [...] Electronically authenticated by: JERICA HOOPER Date: 2022-07-30 09:38[facility] Medical CenterCARDIAC MIKE ADMITon [id number] [Catalytic activity/Vol]84 U/OMinjcy81-189KrvMercer County Community Hospital on above:Performed By: #### PTT, PT #### [facility] [address] [place] [address] Dr. Judy Garcia.MB [Mass/Vol]0.68 ng/mLNormal<=3.60[facility] Comment on above:Performed By: #### PTT, PT #### [facility] [address] [place] [address] Dr. Judy RamirezHSTROP4.3 pg/mLNormal4.0-51.3The [facility] HospitalComment on above:Result Comment: CUT-OFF POINTS HAVE BEEN ESTABLISHED BASED ON THE FOURTH UNIVERSAL DEFINITIONS OF MYOCARDIAL INFARCTION. THE UPPER REFERENCE LIMIT (URL) OF TROPONIN, DEFINED THE 99TH PERCENTILE OF cTnI DISTRIBUTION IN A REFERENCE POPULATION, HAS BEEN CONFIRMED THE DECISION THRESHOLD FOR [place] DIAGNOSIS.Performed By: #### PTT, PT #### [facility] [address] [place] [address] Dr. Judy DeanO31 ng/mLNormal9-82The [facility] HospitalComment on above: Performed By: #### PTT, PT #### [facility] [address] [place] [address] Dr. Judy Anderson AUTO DIFFon [id number] #0.1 103/ulNormal0.0-0.1The [facility] HospitalComment on above:Performed By: #### PTT, PT #### [facility] [address] [place] [address] Dr. Judy RamirezBasophils/100 WBC (Bld)0.7 %Normal0.2-2.0[facility] Comment on above:Performed By: #### PTT, PT #### [facility] [address] [place] [address] Dr. Judy Suarez #0.2 103/ulNormal0.0-0.7The [facility] HospitalComment on above: Performed By: #### PTT, PT #### [facility] [address] [place] [address] Dr. Judy Tapiaosinophils/100 WBC (Bld)2.1 %Normal0.9-7.0[facility] Comment on above:Performed By: #### PTT, PT #### [facility] [address] [place] [address] Dr. Judy Tapiarythrocyte distribution width (RBC) [Ratio]12.8 %Qbhkfr17.0-15.0 The [facility] HospitalComment on above:Performed By: #### PTT, PT #### [facility] [address] [place] [address] Dr. Judy RamirezHematocrit (Bld) [Volume fraction]40.6 %Doewjb19.0-48.0The [facility] HospitalComment on above:Performed By: #### PTT, PT #### [facility] [address] [place] [address] Dr. Judy RamirezHemoglobin (Bld) [Mass/Vol]13.6 g/tOOmxxnb56.0-16.0The [facility] HospitalComment on above:Performed By: #### PTT, PT #### [facility] [address] [place] [address] Dr. Judy Durant #0.04 10e3/ulCritically high0.00-0.03The [facility] Comment on above:Performed By: #### PTT, PT #### [facility] [address] [place] [address] Dr. Judy Durant %0.6 %Critically high0.0-0.5The [facility] HospitalComment on above:Performed By: #### PTT, PT #### [facility] [address] [place] [address] Dr. Judy Baker #2.6 103/ulNormal1.2-3.8The [facility] HospitalComment on above:Performed By: #### PTT, PT #### [facility] [address] [place] [address] Dr. Judy Jacksonhocytes/100 WBC (Bld)36.8 %Imvtuo66.5-60.0The [facility] HospitalComment on above:Performed By: #### PTT, PT #### [facility] [address] [place] [address] DrMynor Snyder DIFF REQNONormalThe [facility] HospitalComment on above: Performed By: #### PTT, PT #### [facility] [address] [place] [address] Dr. Judy Fry (RBC) [Entitic mass]28.8 knDtiqbh51.7-34.0The [facility] HospitalComment on above:Performed By: #### PTT, PT #### [facility] [address] [place] [address] Dr. Judy Fry (RBC) [Mass/Vol]33.5 g/dNTntcjr02.9-35.2The [facility] HospitalComment on above:Performed By: #### PTT, PT #### [facility] [address] [place] [address] Dr. Judy Mcgrath (RBC) [Entitic vol]86.0 nYUweiom19.0-99.0The [facility] HospitalComment on above:Performed By: #### PTT, PT #### [facility] [address] [place] [address] Dr. Judy Menendez #0.4 103/ulNormal0.3-0.8The [facility] HospitalComment on above:Performed By: #### PTT, PT #### [facility] [address] [place] [address] Dr. Judy Wellsocytes/100 WBC (Bld)6.0 %Normal1.7-12.0[facility] Comment on above:Performed By: #### PTT, PT #### [facility] [address] [place] [address] Dr. Judy Iglesias #3.8 103/ulNormal1.4-6.5The [facility] HospitalComment on above:Performed By: #### PTT, PT #### [facility] [address] [place] [address] Dr. Judy Galeanoutrophils/100 WBC (Bld)53.8 %Lmtayb52.0-75.0The [facility] HospitalComment on above:Performed By: #### PTT, PT #### [facility] [address] [place] [address] Dr. Judy Torres mean volume (Bld) [Entitic vol]9.6 fLNormal9.5-13.5The [facility] on above:Performed By: #### PTT, PT #### [facility] [address] [place] [address] Dr. Judy RamirezPLT276 103/tnIadgop184-464Ygo [facility] on above: Performed By: #### PTT, PT #### [facility] [address] [place] [address] Dr. Judy RamirezRBC4.72 106/ulNormal4.20-5.40The [facility] on above:Performed By: #### PTT, PT #### [facility] [address] [place] [address] Dr. Judy RamirezWBC7.0 103/ulNormal4.0-11.0The [facility] on above: Performed By: #### PTT, PT #### [facility] [address] [place] [address] Dr. Judy Pepe [id number] [Mass/Vol]mg/LNormal<=1.0The [facility] on above:Performed By: #### PTT, PT #### [facility] [address] [place] [address] Dr. Judy LiconaDIMERon 84-81-9153O-DIMER0.39 mg/L FEUNormal<=0.59The [facility] on above:Performed By: #### PTT, PT #### [facility] [address] [place] [address] Dr. Judy LiconaDIMER COMMENTSSEE [facility] on above:Result Comment: Increases in D-Dimer concentration [...] generalized hospitalization.Performed By: #### PTT, PT #### [facility] [address] [place] [address] Dr. Judy Dallas PROFILEon [id number] [Mass/Vol]3.7 g/dLNormal3.4-5.0 The [facility] HospitalComment on above:Performed By: #### TSH, CRP, MG, LIVER, BMP, CMADM #### [facility] [address] [place] [address] Dr. Judy RamirezAlbumin/Globulin [Mass ratio]0.9 {ratio}NormalThe [facility]iance Hospitalment on above:Performed By: #### TSH, CRP, MG, LIVER, BMP, CMADM #### [facility] [address] [place] [address] Dr. Judy Jamison [Catalytic activity/Vol]98 U/JOxsfph31-251Ozh [facility] HospitalComment on above:Performed By: #### TSH, CRP, MG, LIVER, BMP, CMADM #### [facility] [address] [place] [address] Dr. Judy Rae [Catalytic activity/Vol]37 U/EAojhsd67-00Nku [facility] Hospitalment on above:Performed By: #### TSH, CRP, MG, LIVER, BMP, CMADM #### [facility] [address] [place] [address] Dr. Judy Hernandez [Catalytic activity/Vol]19 U/IYnggfa17-85Mwv [facility] Hospitalment on above:Performed By: #### TSH, CRP, MG, LIVER, BMP, CMADM #### [facility] [address] [place] [address] Dr. Judy Silverio, CONJUGATED0.1 mg/dLNormal0.0-0.2The [facility] Comment on above:Performed By: #### TSH, CRP, MG, LIVER, BMP, CMADM #### [facility] [address] [place] [address] Dr. Judy RamirezBilirubin [Mass/Vol]0.4 mg/dLNormal0.2-1.0The [facility] Comment on above:Performed By: #### TSH, CRP, MG, LIVER, BMP, CMADM #### [facility] [address] [address] [address] Judy RamirezGlobulin (S) [Mass/Vol]4.0 g/dLNormalThe [facility] HospitalComment on above:Performed By: #### TSH, CRP, MG, LIVER, BMP, CMADM #### [facility] [address] [address] [address] Judy RamirezProtein [Mass/Vol]7.7 g/dLNormal6.4-8.2[facility] Comment on above:Performed By: #### TSH, CRP, MG, LIVER, BMP, CMADM #### [facility] [address] [place] [address] Dr. Judy RamirezMAGNESIUMon [id number] [Mass/Vol]2.1 mg/dLNormal1.8-2.4 The [facility] HospitalComment on above:Performed By: #### TSH, CRP, MG, LIVER, BMP, CMADM #### [facility] [address] [place] [address] Dr. Judy RamirezPROF CHEM 8 (BAS METB)on 74-49-7155Nvdvu gap [Moles/Vol]11.0 mmol/LNormalThe [facility] HospitalComment on above:Performed By: #### TSH, CRP, MG, LIVER, BMP, CMADM #### [facility] [address] [place] [address] Dr. Judy RamirezCalcium [Mass/Vol]9.4 mg/dLNormal8.5-10.1The [facility] Comment on above:Performed By: #### TSH, CRP, MG, LIVER, BMP, CMADM #### [facility] [address] [place] [address] Dr. Judy RamirezChloride [Moles/Vol]102 mmol/CQmwvft50-784Roc [facility] Comment on above:Performed By: #### TSH, CRP, MG, LIVER, BMP, CMADM #### [facility] [address] [address] [address] Judy RamirezCO2 [Moles/Vol]29.4 mmol/QSbfnul41.0-32.0[facility] Comment on above:Performed By: #### TSH, CRP, MG, LIVER, BMP, CMADM #### [facility] [address] [place] [address] Dr. Judy RamirezCreatinine [Mass/Vol]1.04 mg/dLCritically high0.55-1.02[facility] CenterComment on above:Performed By: #### TSH, CRP, MG, LIVER, BMP, CMADM #### [facility] [address] [place] [address] Dr. Judy TapiaGFR-AF ANGUILLAN>60Normal>=60The [facility] HospitalComment on above:Performed By: #### TSH, CRP, MG, LIVER, BMP, CMADM #### [facility] [address] [place] [address] Dr. Judy TapiaGFR-NON AF SHELSZTV17 mL/min/1.08g4Aqroufqpow low>=60The [facility] HospitalComment on above:Performed By: #### TSH, CRP, MG, LIVER, BMP, CMADM #### [facility] [address] [place] [address] Dr. Judy RamirezGlucose [Mass/Vol]98 mg/eFRirpvd87-636PfwMetrohealth [facility] Comment on above:Performed By: #### TSH, CRP, MG, LIVER, BMP, CMADM #### [facility] [address] [place] [address] Dr. Judy RamirezPotassium [Moles/Vol]4.4 mmol/LNormal3.5-5.1[facility] Comment on above:Performed By: #### TSH, CRP, MG, LIVER, BMP, CMADM #### [facility] [address] [place] [address] Dr. Judy RamirezSodium [Moles/Vol]138 mmol/DOhcmlo753-459Lcb [facility] Comment on above:Performed By: #### TSH, CRP, MG, LIVER, BMP, CMADM #### [facility] [address] [address] [address] Judy Ortiz nitrogen [Mass/Vol]25.0 mg/dLCritically high7.0-18.0The [facility] HospitalComment on above:Performed By: #### TSH, CRP, MG, LIVER, BMP, CMADM #### [facility] [address] [address] [address] Judy Ortiz nitrogen/Creatinine [Mass ratio]24.0 mg/mgNormalThe [facility] HospitalComment on above:Performed By: #### TSH, CRP, MG, LIVER, BMP, CMADM #### [facility] [address] [place] [address] Dr. Judy Ruff RATE WESTERGRENon 98-58-8285CWO RATE27 mm/hrNormal<=30The [facility] HospitalComment on above:Performed By: #### SEDR #### [facility] [address] [place] [address] Dr. Judy Keith 57-30-5826QSJ3.701 uIU/mLNormal0.358-3.740The [facility] HospitalComment on above:Performed By: #### TSH, CRP, MG, LIVER, BMP, CMADM #### [facility] [address] [place] [address] Dr. Judy Bryant (CLEAN/CATCH) GROCERY CASHIER/MICRO IF IND.on 68-91-5069Smmhgbyrv Ql (U) NegativeNormalNEGATIVEThe [facility] HospitalComment on above:Performed By: #### PINKY FINLEYICRO #### [facility] [address] [place] [address] Dr. Judy Velásquez (U)CLEARNormalCLEARThe [facility] HospitalComment on above: Performed By: #### UAJARED UMICRO #### [facility] [address] [place] [address] Dr. Yilan ChangColor (U)LT. YELLOWNormalYELLOWMetrohealth Cleveland Heights Medical CenterComment on above:Performed By: #### UACSSIDDHARTHA, UMICRO #### [facility] [address] [address] [address] Judy RamirezGlucose Ql (U)NegativeNormalNEGATIVEMetrohealth Cleveland Heights Medical CenterComment on above:Performed By: #### UACSSIDDHARTHA, UMICRO #### [facility] [address] [address] [address] Judy RamirezHemoglobin Ql (U)NegativeNormalNEGATIVEMetrohealth Cleveland Heights Medical Center Comment on above:Performed By: #### UACSSIDDHARTHA, UMICRO #### [facility] [address] [address] [address] Judy RamirezKetones Ql (U)NegativeNormalNEGATIVEMetrohealth Cleveland Heights Medical CenterComment on above:Performed By: #### UACSSIDDHARTHA, UMICRO #### [facility] [address] [place] [address] Dr. Judy RamirezLEUKOCYTESNegativeNormalNEGATIVEMetrohealth Cleveland Heights Medical CenterComment on above:Performed By: #### UACSSIDDHARTHA, UMICRO #### [facility] [address] [address] [address] Judy Coffeytrite Ql (U)NegativeNormalNEGATIVEMetrohealth Cleveland Heights Medical CenterComment on above:Performed By: #### UACSSIDDHARTHA, UMICRO #### [facility] [address] [address] [address] Judy RamirezpH (U)6.0 [pH]Normal5-9[facility] Medical CenterComment on above: Performed By: #### UACSSIDDHARTHA, UMICRO #### [facility] [address] [address] [address] Judy RamirezSPEC GRAVITY<=1.676Tuywrxyq9.005-<=1.025[facility] Comment on above:Performed By: #### UACSIND, UMICRO #### [facility] [address] [address] [address] Judy RamirezUA PROTEINNegativeNormalNEGATIVE/ TRACEMetrohealth Cleveland Heights Medical Center Comment on above:Performed By: #### MALIA UMICRO #### [facility] [address] [address] [address] Judy JETER INDMICROSCOPIC ALREADY ORDEREDNoSt. Mary's Medical CenterComment on above:Performed By: #### MALIA UMICRO #### [facility] [address] [address] [address] Judy Lanebilinogen Qn (U)0.2 {Evelyn'U}/dLNormal0.2 - 1.0The [facility] HospitalComment on above:Performed By: #### MALIA UMICRO #### [facility] [address] [address] [address] Judy Romero MICROSCOPIC ONLYon [id number] SEENNormalNONE SEENMetrohealth Cleveland Heights Medical CenterComment on above:Performed By: #### MALIA UMICRO #### [facility] [address] [address] [address] Judy Kapoor identified Cx Nom (U)NOT INDICATEDNoSt. Mary's Medical CenterComment on above:Performed By: #### MALIA UMICRO #### [facility] [address] [place] [address] Dr. Judy Stevens SEENNormalNONE SEENMetrohealth Cleveland Heights Medical CenterComment on above:Performed By: #### MALIA UMICRO #### [facility] [address] [address] [address] Judy Willard LM Nom (Urine sed)NONE SEENNormalNONE SEENMetrohealth Cleveland Heights Medical CenterComment on above:Performed By: #### MALIA UMICRO #### [facility] [address] [address] [address] Judy Robinthelial cells LM Ql (Urine sed)FEWAbnormalNONE SEEN /RAREThe [facility] HospitalComment on above:Performed By: #### MALIA UMICRO #### [facility] [address] [address] [address] Judy NicolasormalNONE SEENMetrohealth Cleveland Heights Medical CenterComment on above:Performed By: #### UACSSIDDHARTHA UMICRO #### [facility] [address] [address] [address] Judy Dawson SEENAbnormal0-2The [facility] HospitalComment on above: Performed By: #### UACSSIDDHARTHA UMICRO #### [facility] [address] [address] [address] Judy Wang SEENNormsdNONE SEENMetrohealth Cleveland Heights Medical CenterComment on above: Performed By: #### UACSSIDDHARTHA UMJULISSARO #### [facility] [address] [place] [address] Dr. Judy RamirezXR KUB 1 VIEWon [id number] KUB 1 VIEWEXAMINATION: XR KUB 1 VIEW [...] Electronically authenticated by: JERICA HOOPER Date: 2022-07-02 12:05[facility] AUTO DIFFon [id number] #0.0 103/ulNormal0.0-0.1The [facility] HospitalComment on above:Performed By: #### PTT, PT #### [facility] [address] [address] [address] Judy RamirezBasophils/100 WBC (Bld)0.4 %Normal0.2-2.0[facility] Comment on above:Performed By: #### PTT, PT #### [facility] [address] [address] [address] Judy Suarez #0.1 103/ulNormal0.0-0.7The [facility] HospitalComment on above: Performed By: #### PTT, PT #### [facility] [address] [place] [address] Dr. Judy Tapiaosinophils/100 WBC (Bld)1.5 %Normal0.9-7.0The [facility] Comment on above:Performed By: #### PTT, PT #### [facility] [address] [place] [address] Dr. Judy Tapiarythrocyte distribution width (RBC) [Ratio]13.1 %Fpwlqk68.0-15.0 The [facility] HospitalComment on above:Performed By: #### PTT, PT #### [facility] [address] [place] [address] Dr. Judy RamirezHematocrit (Bld) [Volume fraction]40.7 %Otvfkm49.0-48.0The [facility] HospitalComment on above:Performed By: #### PTT, PT #### [facility] [address] [place] [address] Dr. Judy RamirezHemoglobin (Bld) [Mass/Vol]13.8 g/wIRyrdcy39.0-16.0The [facility] HospitalComment on above:Performed By: #### PTT, PT #### [facility] [address] [place] [address] Dr. Judy Durant #0.03 10e3/ulNormal0.00-0.03The [facility] HospitalComment on above:Performed By: #### PTT, PT #### [facility] [address] [place] [address] Dr. Judy Durant %0.4 %Normal0.0-0.5The [facility] Hospitalment on above: Performed By: #### PTT, PT #### [facility] [address] [place] [address] Dr. Judy Baker #1.9 103/ulNormal1.2-3.8The [facility] HospitalComment on above:Performed By: #### PTT, PT #### [facility] [address] [place] [address] Dr. Judy Taylormphocytes/100 WBC (Bld)24.5 %Htpfuh36.5-60.0The [facility] HospitalComment on above:Performed By: #### PTT, PT #### [facility] [address] [place] [address] Dr. Judy MoctezumaUAL DIFF REQNONormalThe [facility] HospitalComment on above: Performed By: #### PTT, PT #### [facility] [address] [place] [address] Dr. Judy Fry (RBC) [Entitic mass]28.4 llXirbqw48.7-34.0The [facility] HospitalComment on above:Performed By: #### PTT, PT #### [facility] [address] [place] [address] Dr. Judy Fry (RBC) [Mass/Vol]33.9 g/dQOlizwe51.9-35.2The [facility] HospitalComment on above:Performed By: #### PTT, PT #### [facility] [address] [place] [address] Dr. Judy Fry (RBC) [Entitic vol]83.7 hPYhntsv71.0-99.0The [facility] Hospitalment on above:Performed By: #### PTT, PT #### [facility] [address] [place] [address] Dr. Judy Menendez #0.5 103/ulNormal0.3-0.8The [facility] HospitalComment on above:Performed By: #### PTT, PT #### [facility] [address] [place] [address] Dr. Judy Wellsocytes/100 WBC (Bld)6.5 %Normal1.7-12.0The [facility] Comment on above:Performed By: #### PTT, PT #### [facility] [address] [place] [address] Dr. Judy Iglesias #5.1 103/ulNormal1.4-6.5The [facility] HospitalComment on above:Performed By: #### PTT, PT #### [facility] [address] [address] [address] Judy RamirezNeutrophils/100 WBC (Bld)66.7 %Efcndk20.0-75.0The [facility] HospitalComment on above:Performed By: #### PTT, PT #### [facility] [address] [address] [address] Judy RamirezPlatelet mean volume (Bld) [Entitic vol]9.5 fLNormal9.5-13.5The [facility] HospitalComment on above:Performed By: #### PTT, PT #### [facility] [address] [place] [address] Dr. Judy RamirezPLT238 103/fdZotoov198-079Vqj [facility] HospitalComment on above: Performed By: #### PTT, PT #### [facility] [address] [place] [address] Dr. Judy RamirezRBC4.86 106/ulNormal4.20-5.40The [facility] HospitalComment on above:Performed By: #### PTT, PT #### [facility] [address] [place] [address] Dr. Judy RamirezWBC7.6 103/ulNormal4.0-11.0The [facility] HospitalComment on above: Performed By: #### PTT, PT #### [facility] [address] [place] [address] Dr. Judy RamirezPROF CHEM 8 (BAS METB)on 01-84-7072Vrqfb gap [Moles/Vol]11.5 mmol/LNormalThe [facility] HospitalComment on above:Performed By: #### BMP #### [facility] [address] [place] [address] Dr. Judy RamirezCalcium [Mass/Vol]9.9 mg/dLNormal8.5-10.1The [facility] on above:Performed By: #### BMP #### [facility] [address] [place] [address] Dr. Judy RamirezChloride [Moles/Vol]105 mmol/OWmkpzl89-826ZdvMetrohealth [facility] Comment on above:Performed By: #### BMP #### [facility] [address] [address] [address] Judy RamirezCO2 [Moles/Vol]28.1 mmol/EZhzfek83.0-32.0[facility] Comment on above:Performed By: #### BMP #### [facility] [address] [address] [address] Judy RamirezCreatinine [Mass/Vol]1.11 mg/dLCritically high0.55-1.02[facility] CenterComment on above:Performed By: #### BMP #### [facility] [address] [place] [address] Dr. Judy TapiaGFR-AF ANGUILLAN>60Normal>=60[facility] Medical CenterComment on above:Performed By: #### BMP #### [facility] [address] [address] [address] Judy TapiaGFR-NON AF XOBNRJKL97 mL/min/1.56r7Dmpgqaecxt low>=60The [facility] HospitalComment on above:Performed By: #### BMP #### [facility] [address] [place] [address] Dr. Judy RamirezGlucose [Mass/Vol]97 mg/nFHqdpyg01-982RkqMetrohealth [facility] Comment on above:Performed By: #### BMP #### [facility] [address] [address] [address] Judy RamirezPotassium [Moles/Vol]3.6 mmol/LNormal3.5-5.1[facility] Comment on above:Performed By: #### BMP #### [facility] [address] [address] [address] Judy RamirezSodium [Moles/Vol]141 mmol/OJgazmn107-389Cxj [facility] Comment on above:Performed By: #### BMP #### [facility] [address] [address] [address] Judy RamirezUrea nitrogen [Mass/Vol]15.0 mg/dLNormal7.0-18.0The [facility] HospitalComment on above:Performed By: #### BMP #### [facility] [address] [place] [address] Dr. Judy RamirezUrea nitrogen/Creatinine [Mass ratio]13.5 mg/mgNoSt. Mary's Medical CenterComment on above:Performed By: #### BMP #### [facility] [address] [place] [address] Dr. Judy RamirezPROTIMEon 12-39-0917HXS Coag (PPP) [Relative time]{INR}NormalMetrohealth Cleveland Heights Medical CenterComfresenius medical care at [facility] on above:Performed By: #### SEDR #### [facility] [address] [place] [address] Dr. Judy Chi GUIDELINESSEE BELOWCincinnati Children's Hospital Medical CenterComment on above:Result Comment: DESIRED INR: 2.0 - 3.0 CONDITIONS NOT LISTED BELOW 2.5 - 3.5 FOR PROSTHETIC HEART VALVE REPLACEMENT 2.5 - 3.5 RECURRENT THROMBOSIS Performed By: #### SEDR #### [facility] [address] [place] [address] Dr. Judy RamirezPT Coag (PPP) [Time]9.8 sNormal9.0-11.6[facility] Comment on above:Performed By: #### SEDR #### [facility] [address] [place] [address] Dr. Judy ToribioTon [id number] Coag (Bld) [Time]35.3 pXoaatq10.3-36.2[facility] on above:Performed By: #### SEDR #### [facility] [address] [place] [address] Dr. Judy RamirezXR KUB 1 VIEWon [id number] KUB 1 VIEWEXAMINATION: XR KUB 1 VIEW [...] authenticated by: LUIS M ODOM Date: 2022-06-20 12:12[facility] Medical CenterMG MAMM SCREEN 3D LEE CADon [id number] MAMM SCREEN 3D LEE CAD Patient: CINTHIA BADILLO Exam Date: 06/16/2022 : 1970 Gender:F Ordering : ZELALEM KAMILLA [facility] Admission #: [id number] Family : Order #: [id number] CLICK HERE TO VIEW EXAM RADIOLOGY REPORT [...] breast cancer at age 80. LOCATION: [facility] BREAST COMPOSITION: Scattered areas fibroglandular density. [...] Luis M Odom MD on 06/17/2022 at 08:06[facility] Medical CenterCT ABD/PELV W CONon [id number] ABD/PELV W CONEXAMINATION: CT ABD/PELV W CON [...] Electronically authenticated by: JERICA HOOPER Date: 2022-06-03 08:59NormalThKettering Health TroyAMYLASEon 35-58-8956Shqqewb [Catalytic activity/Vol]74 U/L Xxroin94-527Tjz [facility] HospitalComment on above:Performed By: #### SEDR #### [facility] [address] [place] [address] Dr. Judy Anderson AUTO DIFFon 55-48-1055DKZP #0.0 103/ulNormal0.0-0.1The [facility] HospitalComment on above:Performed By: #### SEDR #### [facility] [address] [place] [address] Dr. Judy RamirezBasophils/100 WBC (Bld)0.5 %Normal0.2-2.0[facility] Comment on above:Performed By: #### SEDR #### [facility] [address] [place] [address] Dr. Judy Suarez #0.1 103/ulNormal0.0-0.7The [facility] HospitalComment on above: Performed By: #### SEDR #### [facility] [address] [address] [address] Judy Tapiaosinophils/100 WBC (Bld)2.6 %Normal0.9-7.0[facility] Comment on above:Performed By: #### SEDR #### [facility] [address] [place] [address] Dr. Judy Tapiarythrocyte distribution width (RBC) [Ratio]12.4 %Jbftbv83.0-15.0 The [facility] HospitalComment on above:Performed By: #### SEDR #### [facility] [address] [place] [address] Dr. Judy RamirezHematocrit (Bld) [Volume fraction]41.1 %Cafikl99.0-48.0The [facility] HospitalComment on above:Performed By: #### SEDR #### [facility] [address] [place] [address] Dr. Judy RamirezHemoglobin (Bld) [Mass/Vol]13.8 g/rCCdhlyy84.0-16.0The [facility] HospitalComment on above:Performed By: #### SEDR #### [facility] [address] [place] [address] Dr. Judy RamirezIG #0.01 10e3/ulNormal0.00-0.03The [facility] HospitalComment on above:Performed By: #### SEDR #### [facility] [address] [place] [address] Dr. Judy RamirezIG %0.2 %Normal0.0-0.5The [facility] HospitalComment on above: Performed By: #### SEDR #### [facility] [address] [place] [address] Dr. Judy JacksonH #2.1 103/ulNormal1.2-3.8The [facility] HospitalComment on above:Performed By: #### SEDR #### [facility] [address] [place] [address] Dr. Judy Taylormphocytes/100 WBC (Bld)37.8 %Rbfrcw25.5-60.0The [facility] HospitalComment on above:Performed By: #### SEDR #### [facility] [address] [place] [address] Dr. Judy Snyder DIFF REQNONormalThe [facility] HospitalComment on above: Performed By: #### SEDR #### [facility] [address] [place] [address] Dr. Judy Fry (RBC) [Entitic mass]28.4 jhQvzwos90.7-34.0The [facility] HospitalComment on above:Performed By: #### SEDR #### [facility] [address] [place] [address] Dr. Judy Fry (RBC) [Mass/Vol]33.6 g/yRVrdmry59.9-35.2The [facility] HospitalComment on above:Performed By: #### SEDR #### [facility] [address] [place] [address] Dr. Judy Fry (RBC) [Entitic vol]84.6 yYKucsdb47.0-99.0The [facility] HospitalComment on above:Performed By: #### SEDR #### [facility] [address] [place] [address] Dr. Judy Menendez #0.3 103/ulNormal0.3-0.8The [facility] HospitalComment on above:Performed By: #### SEDR #### [facility] [address] [place] [address] Dr. Judy Wellsocytes/100 WBC (Bld)5.5 %Normal1.7-12.0[facility] Comment on above:Performed By: #### SEDR #### [facility] [address] [place] [address] Dr. Judy Iglesias #2.9 103/ulNormal1.4-6.5The [facility] HospitalComment on above:Performed By: #### SEDR #### [facility] [address] [place] [address] Dr. Judy Galeanoutrophils/100 WBC (Bld)53.4 %Xwczuz18.0-75.0The [facility] HospitalComment on above:Performed By: #### SEDR #### [facility] [address] [place] [address] Dr. Judy RamirezPlatelet mean volume (Bld) [Entitic vol]9.4 fLCritically low 9.5-13.5The [facility] HospitalComfresenius medical [facility] at [facility] on above:Performed By: #### SEDR #### [facility] [address] [place] [address] Dr. Judy RamirezPLT274 103/njNjkbou628-598Bna [facility] on above: Performed By: #### SEDR #### [facility] [address] [place] [address] Dr. Judy RamirezRBC4.86 106/ulNormal4.20-5.40The [facility] on above:Performed By: #### SEDR #### [facility] [address] [place] [address] Dr. Judy RamirezWBC5.5 103/ulNormal4.0-11.0The [facility] HospitalComfresenius medical [facility] at [facility] on above: Performed By: #### SEDR #### [facility] [address] [place] [address] Dr. Judy JovelASEon 16-12-3120Rdmjpb [Catalytic activity/Vol]97.0 U/LNormal 73.0-393.0[facility] on above:Performed By: #### UACSSIDDHARTHA, UMICRO #### [facility] [address] [place] [address] Dr. Judy JovelID PROFILEon 87-72-9170GBTY-HDL RATIO [facility] HospitalComfresenius [facility] on above:Result Comment: 3.3 - 4.4 LOW RISK 4.4 - 7.1 AVERAGE RISK 7.1 - 11.0 MODERATE RISK >11.0 HIGH RISKPerformed By: #### SEDR #### [facility] [address] [place] [address] Dr. Judy RamirezCholesterol [Mass/Vol]203 mg/dLCritically high<=200The [facility] on above:Performed By: #### SEDR #### [facility] [address] [address] [address] Judy RamirezCholesterol in HDL [Mass/Vol]48 mg/fVOzpqhy82-39JieMercer County Community Hospital on above:Performed By: #### SEDR #### [facility] [address] [address] [address] Judy RamirezCholesterol in LDL [Mass/Vol]130.0 mg/dLCincinnati Children's Hospital Medical CenterComment on above:Performed By: #### SEDR #### [facility] [address] [address] [address] Judy Chewestergayle.total/Cholesterol in HDL [Mass ratio]4.2 {ratio} NormalParkwood Hospitalment on above:Performed By: #### SEDR #### [facility] [address] [place] [address] Dr. Judy RamirezHDL NORMAL> or = 60 mg/dl - LOW CARDIOVASCULAR RISK <40 mg/dl - HIGH CARDIOVASCULAR RISKCincinnati Children's Hospital Medical CenterComfresenius medical [facility] on above:Performed By: #### SEDR #### [facility] [address] [place] [address] Dr. Judy Arreola CALC NORMALSEE BELOWCincinnati Children's Hospital Medical CenterComment on above:Result Comment: <100 mg/dl OPTIMAL 100 - 129 mg/dl NEAR OR ABOVE OPTIMAL 130 - 159 mg/dl BORDERLINE HIGH 160 - 189 mg/dl HIGH >190 mg/dl VERY HIGH Performed By: #### SEDR #### [facility] [address] [address] [address] Judy RamirezTriglyceride [Mass/Vol]125 mg/dLNormal<=150[facility] Comment on above:Performed By: #### SEDR #### [facility] [address] [place] [address] Dr. Judy LockeLDL CALC25.0 mg/dLNoSt. Mary's Medical CenterComment on above: Performed By: #### SEDR #### [facility] [address] [address] [address] Yilan ChangPROF 14(COMP METB)on 11-39-9379Ylpzyxf [Mass/Vol]3.5 g/dLNormal 3.4-5.0The [facility] HospitalComment on above:Performed By: #### MALIA UMICRO #### [facility] [address] [place] [address] Dr. Judy RamirezAlbumin/Globulin [Mass ratio]0.9 {ratio}NormalThe [facility] HospitalComment on above:Performed By: #### MALIA UMICRO #### [facility] [address] [place] [address] Dr. Judy RodrigezP [Catalytic activity/Vol]86 U/ILntbln61-482Idf [facility] HospitalComment on above:Performed By: #### MALIA UMICRO #### [facility] [address] [place] [address] Dr. Judy RodrigezT [Catalytic activity/Vol]32 U/SLxojbr54-55Anw [facility] HospitalComment on above:Performed By: #### MALIA UMICRO #### [facility] [address] [place] [address] Dr. Judy Clemons gap [Moles/Vol]9.6 mmol/LNormalThe [facility] HospitalComment on above:Performed By: #### MALIA UMICRO #### [facility] [address] [place] [address] Dr. Judy RamirezAST [Catalytic activity/Vol]19 U/PEvwoai79-51Gkr [facility] HospitalComment on above:Performed By: #### MALIA UMICRO #### [facility] [address] [place] [address] Dr. Judy RamirezBilirubin [Mass/Vol]0.5 mg/dLNormal0.2-1.0[facility] Comment on above:Performed By: #### MALIA, UMICRO #### [facility] [address] [place] [address] Dr. Judy RamirezCalcium [Mass/Vol]9.3 mg/dLNormal8.5-10.1[facility] Comment on above:Performed By: #### PINKY FINLEYICRO #### [facility] [address] [address] [address] Judy RamirezChloride [Moles/Vol]106 mmol/TFdxiul38-007LvdMetrohealth [facility] Medical Center Comment on above:Performed By: #### PINKY FINLEYICRO #### [facility] [address] [address] [address] Judy RamirezCO2 [Moles/Vol]30.7 mmol/JZfaxmj59.0-32.0[facility] Comment on above:Performed By: #### PINKY FINLEYICRO #### [facility] [address] [place] [address] Dr. Judy RamirezCreatinine [Mass/Vol]0.92 mg/dLNormal0.55-1.02[facility] CenterComment on above:Performed By: #### ADITYA FINLEYRO #### [facility] [address] [address] [address] Judy TapiaGFR-AF ANGUILLAN>60Normal>=60The [facility] HospitalComment on above:Performed By: #### ADITYA FINLEYRO #### [facility] [address] [place] [address] Dr. Judy TapiaGFR-NON AF ANGUILLAN>60Normal>=60[facility] CenterComment on above:Performed By: #### ADITYA FINLEYRO #### [facility] [address] [address] [address] Judy RamirezGlobulin (S) [Mass/Vol]3.9 g/dLNormalThe [facility] HospitalComment on above:Performed By: #### PINKY FINLEYICRO #### [facility] [address] [place] [address] Dr. Judy RamirezGlucose [Mass/Vol]95 mg/iXSrzmcz63-471SfdMetrohealth [facility] Medical Center Comment on above:Performed By: #### ADITYA FINLEYRO #### [facility] [address] [place] [address] Dr. Judy RamirezPotassium [Moles/Vol]4.3 mmol/LNormal3.5-5.1[facility] Comment on above:Performed By: #### MALIA UMICRO #### [facility] [address] [place] [address] Dr. Judy RamirezProtein [Mass/Vol]7.4 g/dLNormal6.4-8.2[facility] Comment on above:Performed By: #### MALIA UMICRO #### [facility] [address] [place] [address] Dr. Judy RamirezSodium [Moles/Vol]142 mmol/IIcjbbq770-332Tea [facility] Comment on above:Performed By: #### MALIA UMICRO #### [facility] [address] [place] [address] Dr. Judy RamirezUrea nitrogen [Mass/Vol]17.0 mg/dLNormal7.0-18.0The [facility] HospitalComment on above:Performed By: #### MALIA UMICRO #### [facility] [address] [place] [address] Dr. Judy Ortiz nitrogen/Creatinine [Mass ratio]18.5 mg/mgNormalThe [facility] HospitalComment on above:Performed By: #### MALIA UMICRO #### [facility] [address] [place] [address] Dr. Judy Bryant RANDOM W/MICROSCOPICon 76-06-4414ENCAMNFWUSLP SEENNormalNONE SEENMetrohealth Cleveland Heights Medical CenterComment on above:Performed By: #### PTT, PT #### [facility] [address] [place] [address] Dr. Judy RamirezBilirubin Ql (U)NegativeNormalNEGATIVEThe [facility] Comment on above:Performed By: #### PTT, PT #### [facility] [address] [place] [address] Dr. Judy RamirezCASTNONE SEENNormalNONE SEENMetrohealth [facility] Heights Medical CenterComment on above:Performed By: #### PTT, PT #### [facility] [address] [address] [address] Judy RamirezClarity (U)CLEARNormalCLEARMetrohealth [facility] Heights Medical CenterComment on above: Performed By: #### PTT, PT #### [facility] [address] [address] [address] Judy Knottlor (U)LT. YELLOWNormalYELLOWMetrohealth Cleveland Heights Medical CenterComment on above:Performed By: #### PTT, PT #### [facility] [address] [place] [address] Dr. Judy RamirezCrystals LM Nom (Urine sed)NONE SEENNormalNONE SEENMetrohealth [facility] Heights Medical CenterComfresenius medical care at [facility] on above:Performed By: #### PTT, PT #### [facility] [address] [place] [address] Dr. Kim ChangEpithelial cells LM Ql (Urine sed)FEWAbnormalNONE SEEN /RAREThe [facility] HospitalComment on above:Performed By: #### PTT, PT #### [facility] [address] [place] [address] Dr. Judy RamirezGlucose Ql (U)NegativeNormalNEGATIVEMetrohealth Cleveland Heights Medical CenterComfresenius [facility] on above:Performed By: #### PTT, PT #### [facility] [address] [place] [address] Dr. Judy RamirezHemoglobin Ql (U)TRACE-INTACTAbnormalNEGATIVEMetrohealth Cleveland Heights Medical CenterComment on above:Performed By: #### PTT, PT #### [facility] [address] [place] [address] Dr. Judy RamirezKetones Ql (U)NegativeNormalNEGATIVEMetrohealth Cleveland Heights Medical CenterComment on above:Performed By: #### PTT, PT #### [facility] [address] [place] [address] Dr. Judy RamirezLEUKOCYTESNegativeNormalNEGATIVEMetrohealth Cleveland Heights Medical CenterComfresenius [facility] on above:Performed By: #### PTT, PT #### [facility] [address] [place] [address] Dr. Judy RamirezMUCOUSNONE SEENNormalNONE SEENThe [facility] HospitalComment on above:Performed By: #### PTT, PT #### [facility] [address] [place] [address] Dr. Judy Back Ql (U)NegativeNormalNEGATIVEThe [facility] HospitalComment on above:Performed By: #### PTT, PT #### [facility] [address] [address] [address] Judy RamirezpH (U)7.0 [pH]Normal5-9The [facility] HospitalComment on above: Performed By: #### PTT, PT #### [facility] [address] [place] [address] Dr. Judy FuentesCNJAVIER SEENAbnormal0-2The [facility] HospitalComment on above: Performed By: #### PTT, PT #### [facility] [address] [place] [address] Dr. Judy RamirezSPEC GRAVITY1.921Zimszx6.005-<=1.025The [facility] Hospitalment on above:Performed By: #### PTT, PT #### [facility] [address] [place] [address] Dr. Judy Bryant PROTEINNegativeNormalNEGATIVE/ TRACEThe [facility] Comment on above:Performed By: #### PTT, PT #### [facility] [address] [place] [address] Dr. Judy Lanebiltrevor Qn (U)0.2 {Evelyn'U}/dLNormal0.2 - 1.0The [facility] Hospitalment on above:Performed By: #### PTT, PT #### [facility] [address] [place] [address] Dr. Judy RamirezWBCIVONNE SEENNormalNONE SEENMetrohealth [facility] Heights Medical CenterComfresenius medical [facility] on above: Performed By: #### PTT, PT #### [facility] [address] [place] [address] Dr. Judy Ortiz THROATon 86-80-9579SYCBZGU THROATIsolate 1 Streptococcus dysgalactiae Moderate growth of ORGANISM 1 Streptococcus dysgalactiae ANTIBIOTIC M.I.C RX STATUS Benzylpenicillin <=0.06 S F Ampicillin <=0.25 S F Cefotaxime <=0.12 S F Ceftriaxone <=0.12 S F Levofloxacin 0.5 S F Erythromycin <=0.12 S F Clindamycin <=0.25 S F Linezolid <=2 S F Vancomycin 0.5 S F Tetracycline >=16 R FNormalMetrohealth Cleveland Heights Medical CenterComment on above:Performed By: #### SEDR #### [facility] [address] [place] [address] Dr. Judy Vicente-19 PCR ([facility])on 15-33-3277LHQD-CoV-2 (COVID-19) RNA CAROLA+probe Ql (Unsp spec)Not detectedNormalNOT DETECTEDMetrohealth [facility] Comment on above:Result Comment: This test is not yet approved or cleared by the [place] FDA. When there are no FDA-approved or cleared tests available, and other criteria are met, FDA can make tests available under an emergency access mechanism called an Emergency Use Authorization (EUA). The EUA for this test is supported by the [place] of Health and Human Service's (HHS's) declaration [...] and symptoms consistent with SARS-CoV-2.Performed By: #### UACSALMA CARL #### [facility] [address] [place] [address] [address] [address] Judy Vicente-19 Positive/NegativeOrdered By: Luis M Juarez on 08-13-2021 SARS-CoV-2 (COVID-19) N gene CAROLA+probe Ql (Resp)NegativeNegativeThe University Of Toledo Medical CenterComment on above:Testing for SARS-CoV-2 by RT-PCR This test was developed and its performance characteristics determined by [employer] ([employer]) and validated at the [facility]. This test has not been FDA cleared [...] revoked sooner. Vital Signs Date TimeVital SignValuePerforming McvomivpoYvjneofh79-94-4955 17:36-0400Body xmktay316.1 Jose Mathewshholz PASSENGER ELEVATOR OPERATOR-C Work Phone: [phone] [place], [place] [address]609-22-2025 17:36-0400 Body mass index (BMI) [Ratio]33.2 kg/m2Lisa Aichholz PASSENGER ELEVATOR OPERATOR-C Work Phone: [phone]09-22-2025 17:36-0400 Body luzdzakiner19.5 [degF]Kamilla Mathewshholz PASSENGER ELEVATOR OPERATOR-C Work Phone: [facility]09-22-2025 17:36-0400 Body rmojjh26.49 kgLisa Aichholz PASSENGER ELEVATOR OPERATOR-C Work Phone: [phone]09-22-2025 17:36-0400 Diastolic blood xwaabgye21 mm[Hg]Kamilla Bisihholz PASSENGER ELEVATOR OPERATOR-C Work Phone: [facility]09-22-2025 17:36-0400 Heart rate71 /minLisa Aichholz PASSENGER ELEVATOR OPERATOR-C Work Phone: [phone] [place], [place] 5835609-22-2025 17:36-0400 Respiratory rate16 /minLisa Aichholz PASSENGER ELEVATOR OPERATOR-C Work Phone: [phone] [place], [place] 58[address]609-22-2025 17:36-0400 SaO2% (BldA) [Mass fraction]99 %Kamilla Aichholz PASSENGER ELEVATOR OPERATOR-C Work Phone: [phone] [place], [place] 58[address]609-22-2025 17:36-0400 Systolic blood utqrcoal802 mm[Hg]Kamilla Aichholz PASSENGER ELEVATOR OPERATOR-C Work Phone: [phone]08-05-2025 10:41-0400 Body etdgrj969.1 cmLisa Aichholz Work Phone: [phone]08-05-2025 10:41-0400 Body mass index (BMI) [Ratio]34.3 kg/m2Lisa Aichholz Work Phone: 1(099)[address]08-05-2025 10:41-0400 Body jojhxz84.61 kgLisa Aichholz Work Phone: 1(182)[address]08-05-2025 10:41-0400 Diastolic blood feebhtbl99 mm[Hg]Kamilla Aichholz Work Phone: 1(965)24[address]08-05-2025 10:41-0400 Heart rate80 /minLisa Aichholz Work Phone: 1(679)177-[address] [place], [place] 5835608-05-2025 10:41-0400 SaO2% (BldA) [Mass fraction]98 %Kamilla Aichholz Work Phone: 1(064)231-[address] [place], [place] 5835608-05-2025 10:41-0400 Systolic blood piflnsxz927 mm[Hg]Kamilla Aichholz Work Phone: 1(019)17645 [address]08-02-2025 18:30-0400 Diastolic blood gcbqpdco70 mm[Hg]Kamilla Aichholz Work Phone: 1(200)156-[address] [place], [place] 5835608-02-2025 18:30-0400 Heart rate78 /minLisa Aichholz Work Phone: 1(371)209-[address] [place], [place] 5835608-02-2025 18:30-0400 Respiratory rate18 /minLisa Aichholz Work Phone: 1(537)673-[address] [place], [place] 5835608-02-2025 18:30-0400 SaO2% (BldA) [Mass fraction]97 %Kamilla Aichholz Work Phone: 1(075)03745 [address]08-02-2025 18:30-0400 Systolic blood buqpqzmz271 mm[Hg]Kamilla Aichholz Work Phone: 1(913)36745 [address]08-02-2025 12:58-0400 Body zsnaxc430.1 cmLisa Aichholz Work Phone: 1(168)75[address]08-02-2025 12:58-0400 Body ehtjjwrskhv41.7 [degF]Kamilla Aichholz Work Phone: 1(051)29545 [address]08-02-2025 12:58-0400 Body dqouhd68 kgLisa Aichholz Work Phone: 1(191)98[address]07-31-2025 11:20-0400 Body lugfnr385.1 cmLisa Aichholz Work Phone: 1(012)029[address]07-31-2025 11:20-0400 Body xanijslxeei34.2 [degF]Kamilla Aichholz Work Phone: 1(485)23645 [address]07-31-2025 11:20-0400 Body ocmjgd30 kgLisa Aichholz Work Phone: 1(784)968-[address] [place], [place] 5835607-31-2025 11:20-0400 Diastolic blood sgzspibs52 mm[Hg]Kamilla Aichholz Work Phone: 1(945)[address]07-31-2025 11:20-0400 Heart rate77 /minLisa Aichholz Work Phone: [facility]07-31-2025 11:20-0400 Respiratory rate22 /minLisa Bisihholz Work Phone: [facility]07-31-2025 11:20-0400 SaO2% (BldA) [Mass fraction]99 %Kamillafili Mathewshholz Work Phone: [facility]07-31-2025 11:20-0400 Systolic blood dqevwlgg171 mm[Hg]Kamilla Bisihholz Work Phone: 1(222)980-[address] [place], [place] 4812507-15-2025 16:07-0400 Body mass index (BMI) [Ratio]34.22 kg/m2Adalisa Bisihholz PASSENGER ELEVATOR OPERATOR Work Phone: [facility] HospitalCwzedldmrs91-21-3132 16:07-0400Body temperature 98.29 [degF]Kamilla Mathewsdamonholz PASSENGER ELEVATOR OPERATOR Work Phone: [facility] HospitalBpswqkwhpu73-21-3954 16:07-0400Body qvdygs57.16 kgLisa Mathewshholz PASSENGER ELEVATOR OPERATOR Work Phone: [facility] HospitalAxgymyuczg19-19-8764 16:07-0400Diastolic blood mm[Hg]Kamilla Stephanieholz PASSENGER ELEVATOR OPERATOR Work Phone: [facility] HospitalZjemcbmbuv21-63-7226 16:07-0400Heart rate74 /min Kamilla Stephanieholz PASSENGER ELEVATOR OPERATOR Work Phone: [facility] HospitalUaqvxznazf48-84-5137 16:07-0400Respiratory rate18 /minKamilla Brownholz PASSENGER ELEVATOR OPERATOR Work Phone: [facility] HospitalJzjimtgvyb71-87-7061 16:07-3873WyM8% (BldA) [Mass fraction]98 %Kamilla Bisihholz PASSENGER ELEVATOR OPERATOR Work Phone: [facility] HospitalCyjlyfnfda17-22-0993 16:07-0400Systolic blood djzrmytr218 mm[Hg]Kamilla Bisihholz PASSENGER ELEVATOR OPERATOR Work Phone: 1(419)547-[address] [place], [place] [address]Elokjfmsof95-17-4870 17:00-0400Body mass index (BMI) [Ratio]34.51 kg/m2Lisa Stephanieholz PASSENGER ELEVATOR OPERATOR Work Phone: [facility] HospitalLubqvvpfdt13-63-2925 17:00-0400Body temperature 98.49 [degF]Kamilla Stephanieholz PASSENGER ELEVATOR OPERATOR Work Phone: [facility] HospitalChvzcqysij65-25-4002 17:00-0400Body joiqqt77.98 kgLisa Stephanieholz PASSENGER ELEVATOR OPERATOR Work Phone: [facility] HospitalMlhlsogitt72-57-1929 17:00-0400Diastolic blood rqvriduh03 mm[Hg]Kamilla Stephanieholz PASSENGER ELEVATOR OPERATOR Work Phone: [facility] HospitalNmdwkzdhhw81-72-2813 17:00-0400Heart rate76 /min Kamilla Stephanieholz PASSENGER ELEVATOR OPERATOR Work Phone: [facility] HospitalLidfrmikas52-62-8821 17:00-0400Respiratory rate18 /minLisa Stephanieholz PASSENGER ELEVATOR OPERATOR Work Phone: [facility] HospitalSktnteylxr03-40-3937 17:00-3640IwY0% (BldA) [Mass fraction]96 %Kamilla Stephanieholz PASSENGER ELEVATOR OPERATOR Work Phone: [facility] HospitalZfnwbmrpri17-88-9495 17:00-0400Systolic blood hbltyckw751 mm[Hg]Kamilla Stephanieholz PASSENGER ELEVATOR OPERATOR Work Phone: [facility] HospitalKwfqoebfds64-09-3503 17:54-0500Body .6 cmLisa Stephanieholz PASSENGER ELEVATOR OPERATOR Work Phone: [facility] HospitalJdzsmfcuzg98-04-6961 17:54-0500Body mass index (BMI) [Ratio]35.25 kg/m2Lisa Bisihholz PASSENGER ELEVATOR OPERATOR Work Phone: [facility] HospitalYtkfqootmr54-55-0372 17:54-0500Body temperature 98.29 [degF]Kamilla Stephanieholz PASSENGER ELEVATOR OPERATOR Work Phone: [facility] HospitalBbabijttqc11-96-8150 17:54-0500Body csomjz30.07 kgLisa Bisihholz PASSENGER ELEVATOR OPERATOR Work Phone: [facility] HospitalNljgroyfov00-97-3769 17:54-0500Diastolic blood xpdwipwz83 mm[Hg]Kamilla Brownchristiane PASSENGER ELEVATOR OPERATOR Work Phone: [facility] HospitalKdyjpgvaym41-56-3531 17:54-0500Heart rate80 /min Kamilla Jacksonkasie PASSENGER ELEVATOR OPERATOR Work Phone: [phone] HospitalEyfqvkobkb54-31-1826 17:54-0500Respiratory rate18 /minLisa Patton PASSENGER ELEVATOR OPERATOR Work Phone: [facility] HospitalGwocfmxnkj90-91-3181 17:54-8540MeY8% (BldA) [Mass fraction]99 %Kamilla Jacksonkasie PASSENGER ELEVATOR OPERATOR Work Phone: [facility] HospitalGthndrlgpd23-02-0715 17:54-0500Systolic blood sylpnvxp204 mm[Hg]Kamilla Jacksonkasie PASSENGER ELEVATOR OPERATOR Work Phone: [facility] HospitalNvtodvfupx41-74-5471 15:27-0500Blood Pressure LocationAurora Orzech [facility]11-05-2024 15:27-0500Diastolic blood gnmzqkty39 mm[Hg]Sena Orzech [facility]11-05-2024 15:27-0500Heart rate79 /minAurora Orzech [facility]11-05-2024 15:27-0500Systolic blood cfvqnybb430 mm[Hg]Sena Orzech [facility]10-14-2024 18:09-0400Body bivpyl396.6 Jose Bisidamonchristiane PASSENGER ELEVATOR OPERATOR Work Phone: [facility] HospitalYgagtbyqcr84-83-7765 18:09-0400Body mass index (BMI) [Ratio]35.28 kg/m2Kamilla Patton PASSENGER ELEVATOR OPERATOR Work Phone: [facility] HospitalZeuvfdyryg37-28-6719 18:09-0400Body temperature 98.8 [degF]Kamilla Patton PASSENGER ELEVATOR OPERATOR Work Phone: [facility] HospitalDdtausfhea25-11-5845 18:09-0400Body cbbebp24.16 kgKamilla Patton PASSENGER ELEVATOR OPERATOR Work Phone: [facility] HospitalLvrbwtehqq07-89-1002 18:09-0400Diastolic blood blbgmgeo21 mm[Hg]Kamilla Patton PASSENGER ELEVATOR OPERATOR Work Phone: [facility] HospitalYdvmsmqjba85-51-0173 18:09-0400Heart rate87 /min Kamilla Patton PASSENGER ELEVATOR OPERATOR Work Phone: [facility] HospitalGlcthffoii14-67-0329 18:09-0400Respiratory rate18 /minKamilla Patton PASSENGER ELEVATOR OPERATOR Work Phone: [facility] HospitalIqhxvlbwhd90-38-8470 18:09-1614GgN1% (BldA) [Mass fraction]97 %Kamilla Patton PASSENGER ELEVATOR OPERATOR Work Phone: [facility] HospitalYfkcjtytfd05-09-3500 18:09-0400Systolic blood hbnqpoxs589 mm[Hg]Kamilla Patton PASSENGER ELEVATOR OPERATOR Work Phone: [facility] HospitalWlskzfpwco93-57-2223 15:53-0400Body epbowy436.6 cmFetisha Pace PASSENGER ELEVATOR OPERATOR Work Phone: [facility] HospitalVjyrpzoybp04-68-4585 15:53-0400Body mass index (BMI) [Ratio]34.86 kg/u4Bffqrantisha Robisongel PASSENGER ELEVATOR OPERATOR Work Phone: [place] [address]Rckjlwvkrp70-66-8990 15:53-0400Body .98 kgFetisha Klineparkergel PASSENGER ELEVATOR OPERATOR Work Phone: [place] [address]Lduyvlpeut18-05-0494 15:53-0400Diastolic blood ocgfzcgr59 mm[Hg]Mohsen Pace PASSENGER ELEVATOR OPERATOR Work Phone: [place] [address]Lxdfizmymu77-00-6808 15:53-0400Systolic blood nidduslq376 mm[Hg]Mohsen Pace PASSENGER ELEVATOR OPERATOR Work Phone: [facility] HospitalKttxtshxuu00-21-7664 13:13-0400Body tvqroc524.1 cm[facility]04-24-2024 13:13-0400Body mass index (BMI) [Ratio]34.1 kg/s5UemonagmhThe [facility] Of [facility]04-24-2024 13:13-0400Body .98 kgThe [facility]02-06-2024 15:47-0500Body height 167.6 cmZonia Chambers DPM Work Phone: [facility] HospitalQzkonwimya46-73-7425 15:47-0500Body mass index (BMI) [Ratio]34.22 kg/w1ZrpbrccZonia Chambers DPM Work Phone: [facility] HospitalGgjoxdyfiq13-55-7790 15:47-0500Body howdqc30.16 kgJeaaron Chambers DPM Work Phone: [facility] HospitalDunnteaumt69-86-7699 14:59-0400Blood Pressure LocationPatrick KRUEGER [facility]10-16-2023 14:59-0400Diastolic blood wxmbelfj55 mm[Hg]Anand KRUEGER [facility]10-16-2023 14:59-0400Heart rate80 /minPatrick KRUEGER [facility]10-16-2023 14:59-0400Respiratory rate16 /minPatrick KRUEGER [facility]10-16-2023 14:59-0400Systolic blood dhwkeuqr147 mm[Hg]Anand KRUEGER [facility]07-19-2023 09:18-0400Diastolic blood zdprrqas09 mm[Hg][facility]07-19-2023 09:18-0400Heart rate69 /[facility]07-19-2023 09:18-0400Respiratory rate16 /[facility]07-19-2023 09:18-3660TrF5% (BldA) [Mass fraction]98 %[facility]07-19-2023 09:18-0400Systolic blood hojhqffc32 mm[Hg][facility]07-19-2023 07:14-0400Body ivovgt299.1 cmThe [facility]07-19-2023 07:14-0400Body yusbdguvbqp71.6 [degF][facility]07-19-2023 07:14-0400Body euhhzm20.45 kgThe [facility]06-01-2023 15:00-0400Body zbzazq659 mgThe [facility]06-03-2022 09:15-0400Diastolic blood mm[Hg]DO Luis M Juarez Work Phone: 3(315)908-[address] [place], [place] 5635006-03-2022 09:15-0400 Heart rate80 /Ozzie Juarez Work Phone: 8(037)878-[address] [place], [place] 5635006-03-2022 09:15-0400 Respiratory rate20 /Ozzie Juarez Work Phone: 2(490)285-[address] [place], [place] 5635006-03-2022 09:15-0400 SaO2% (BldA) [Mass fraction]100 %DO Luis M Juarez Work Phone: 4(829)244-[address] [place], [place] 9594206-03-2022 09:15-0400 Systolic blood dbwlmect101 mm[Hg]DO Luis M Larry Work Phone: 6(186)814-[address] [place], [place] 9594206-03-2022 07:15-0400 Body .37 cmDO Luis M Larry Work Phone: 2(978)965-[address] [place], [place] 5635006-03-2022 07:15-0400 Body mass index (BMI) [Ratio]32.8 kg/m2DO Luis M Larry Work Phone: 0(253)866-[address] [place], [place] 9594206-03-2022 07:15-0400 Body idlxknyakjl16.1 [degF]DO Luis M Juarez Work Phone: [facility]06-03-2022 07:15-0400 Body jwroxg75.71 kgDO Luis M Juarez Work Phone: [facility] Encounters Encounter DateEncounter TypeCare ProviderFacilityStart: 43-55-2721uynbymbdqb Sena X OrzechFacility:[facility] [place]vueStart: 01-03-2025 End: 16-03-4102noxjclsjyyFnho Shani Strong ASSEMBLER INSTALLER STRUCTURES-CNPFacility:[facility] MainStart: 12-29-2024 End: 71-69-2456mkapsogqtfRWFIM MCCLENDONFacility:[facility]ertart: 12-04-2024 End: 03-84-0103rgstnviyptVjuj J Aichholz PASSENGER ELEVATOR OPERATOR-C Work Phone: [facility] Work Phone: Start: 12-04-2024 End: 02-37-6431Uuyetoi encounter procedureLisa Elizabeth Patton PASSENGER ELEVATOR OPERATOR-C-[facility] Work Phone: Start: 11-20-2024 End: 69-20-8344gbnsxoiszoTmnp Jo Aichholz ASSEMBLER INSTALLER STRUCTURES-CNPFacility:[facility] Start: 11-04-2024 End: 74-43-4778Anadqicrb Result EncounterLisa Abdi PASSENGER ELEVATOR OPERATOR Work Phone: noms External Department UnsolicitedStart: 11-04-2024 End: 91-62-4120Mugwzybuu Result EncounterLisa Abdi PASSENGER ELEVATOR OPERATOR Work Phone: [facility] External Department UnsolicitedStart: 10-17-2024 End: 98-85-2501txjminluwnDzpw J Aichholz Work Phone: [facility] Work Phone: Start: 10-17-2024 End: 00-88-8189Heuzfsm encounter georgeAgnes Rodriguez ASSEMBLER INSTALLER STRUCTURES-[facility] [place] Work Phone: Start: 10-14-2024 End: 52-02-5187Jcnmhppks department patient visitLisa Aichholz Work Phone: [phone]-Xaffgpwag Room Work Phone: Start: 10-12-2024 End: 03-76-5368Ozpoxcmll department patient visitLisa Aichholz Work Phone: [phone]-Emboabfnj Room Work Phone: Start: 09-26-2024 End: 64-37-5059ovlwkonewjTOZY AICHHOLZNot AvailableStart: 09-26-2024 End: 26-80-0275Msnvda outpatient visit 25 minutesLisa Aichholz PASSENGER ELEVATOR OPERATOR Work Phone: noms CWM FMComment on above:Chest pain in adult (Primary Dx); Morbid (severe) obesity due to excess calories ([facility]-HCC); Gastro-esophageal reflux disease without esophagitisStart: 09-26-2024 End: 94-06-7169Zjhskl flowsheetLisa Aichholz PASSENGER ELEVATOR OPERATOR Work Phone: n[facility] CWM FMStart: 09-26-2024 End: 84-88-2621Kbzcuz flowsheetLisa Aichholz PASSENGER ELEVATOR OPERATOR Work Phone: noms CWM FMStart: 08-30-2024 End: 31-29-5110Dqptuc outpatient visit 25 minutesLisa Aichholz PASSENGER ELEVATOR OPERATOR Work Phone: noms CWM FMComment on above:Gastro-esophageal reflux disease without esophagitis (Primary Dx); Pulmonary hypertension, unspecified (HCC); Morbid (severe) obesity due to excess calories ([facility]-HCC); Abnormal kidney functionStart: 08-30-2024 End: 99-27-1807ohxrjbwrglPZAM AICHHOLZNot AvailableStart: 08-30-2024 End: 19-84-2017Rupjnz flowsheetLisa Aichholz PASSENGER ELEVATOR OPERATOR Work Phone: n[facility] CWM FMStart: 08-30-2024 End: 46-16-7199Tudalv flowsSandy Jacksonz PASSENGER ELEVATOR OPERATOR Work Phone: noms CWM FMStart: 06-06-2024 End: 27-32-4612mfgudeysjpFPVD HILLNot AvailableStart: 04-19-2024 End: 98-11-9579Hdimre OnlyKamilla Patton PASSENGER ELEVATOR OPERATOR Work Phone: noms CWM FMComment on above:Hyperglycemia (Primary Dx) Abnormal kidney function (Primary Dx)Start: 04-15-2024 End: 60-09-9439Pevzrshye Result EncounterKamilla Patton PASSENGER ELEVATOR OPERATOR Work Phone: n[facility] External Department UnsolicitedStart: 04-15-2024 End: 24-31-6151Qtmbboajb Result EncounterLisa Patton PASSENGER ELEVATOR OPERATOR Work Phone: noms External Department UnsolicitedStart: 03-29-2024 End: 91-97-2404Ahmnqibc preventive med est patient 40-64yrsKamilla Patton PASSENGER ELEVATOR OPERATOR Work Phone: noms CWM FMComment on above:Encounter for annual wellness visit (Primary Dx); Morbid (severe) obesity due to excess calories (CMS/HCC); Gastro-esophageal reflux disease without esophagitis; Body mass index (BMI) 35.0-35.9, adult; Pulmonary hypertension, unspecified (CMS/HCC); Gastroesophageal reflux disease without esophagitisStart: 03-29-2024 End: 98-53-1474ktpxbejlpbJDLO BISIHHOLZNot AvailableStart: 03-29-2024 End: 74-83-6350Jbgevt flowsSandy Jacksonz PASSENGER ELEVATOR OPERATOR Work Phone: noms CWM FMStart: 03-29-2024 End: 02-65-9273Nzyplq flowsSandy Brownholz PASSENGER ELEVATOR OPERATOR Work Phone: noms CWM FMStart: 03-29-2024 End: 31-62-0588Ydvalde encounter procedureLisa Brownholz PASSENGER ELEVATOR OPERATOR Work Phone: noms HealthcareStart: 02-23-2024 End: 11-52-5087LiatdyRiyo Aichholz PASSENGER ELEVATOR OPERATOR Work Phone: noms CWM FMComment on above:Gastroesophageal reflux disease without esophagitisStart: 01-21-2024 End: 93-18-5241Zzxrsemzv Result EncounterLisa Brownholz PASSENGER ELEVATOR OPERATOR Work Phone: noms External Department UnsolicitedStart: 01-21-2024 End: 86-02-0101Qpmmqritv Result EncounterKamilla Brownholz PASSENGER ELEVATOR OPERATOR Work Phone: noms External Department UnsolicitedStart: 01-18-2024 End: 86-17-9205eiyxpybxcrTfqsis X OrzechFacility:[facility] [place]vueStart: 01-18-2024 End: 60-11-5509Lelqzco encounter procedureAurora X Orzech [facility] start: 01-16-2024 End: 38-99-8537Vwuhbjwwa Result EncounterGeneric External Data ProviderNOMS External Department UnsolicitedStart: 01-16-2024 End: 11-56-0758Rjwzpiuqz Result EncounterGeneric External Data ProviderNOMS External Department UnsolicitedStart: 12-27-2023 End: 73-60-3827Zfxvic outpatient visit 15 minutesKamilla Brownowenz PASSENGER ELEVATOR OPERATOR Work Phone: noms CWM FMComment on above:Gastroesophageal reflux disease without esophagitis (Primary Dx); Pulmonary hypertension, unspecified (CMS/HCC); Obesity (BMI 30-39.9)Start: 12-27-2023 End: 82-36-1642dzkrhusdzrORIG AICHHOLZNot AvailableStart: 12-27-2023 End: 94-55-5892Tuqxph flowsheetLi Bisidamonholz PASSENGER ELEVATOR OPERATOR Work Phone: noms CWM FMStart: 12-27-2023 End: 12-85-3019Umpbkd Ameya Patton PASSENGER ELEVATOR OPERATOR Work Phone: noms CWM FMStart: 11-10-2023 End: 14-97-3409Goptwm outpatient visit 25 minutesFetisha Pace PASSENGER ELEVATOR OPERATOR Work Phone: noms PCF NEUROLOGYComment on above:Trigeminal neuralgia (CMS/HCC); Nonintractable headache, unspecified chronicity pattern, unspecified headache typeStart: 11-10-2023 End: 41-39-1089qlwewkbgwmCWFXKHQ Hema PACENot AvailableStart: 10-22-2023 End: 87-42-1098jzhbeyrvmuItgdr L Gabbard MD Work Phone: GastroenterologyComment on above:Gastroesophageal reflux disease, unspecified whether esophagitis present (Primary Dx)Start: 10-22-2023 End: 42-23-0720Udvqdhrzaujh consultation with patientShilary Lund MD Work Phone: GastroenterologyStart: 07-07-2023 End: 30-59-6673icafzdatoyYjmlhqnuyFisher-[facility] Work Phone: Start: 07-07-2023 End: 28-70-4813Gmbebla encounter procedureAt[facility] Work Phone: Start: 83-68-1800QdvcheOwgq Aichholz PASSENGER ELEVATOR OPERATOR Work Phone: noms CWM FMComment on above:Gastroesophageal reflux disease without esophagitisStart: 04-20-2023 End: 38-23-0372Cnxgwr outpatient visit 15 minutesZonia ANTONM Work Phone: noms PODIATRYComment on above:Onychomycosis (Primary Dx); Nail dystrophy; Pain in toes of both feetStart: 04-06-2023 End: 02-75-5124mfiryqwlnuNXLW R BOVAProMedica Childs HospitalStart: 01-19-2023 End: 23-78-0789Psignvw encounter procedureFetisha Pace [facility] Start: 12-28-2022 End: 02-90-4413Uqzlccc encounter procedurePaburt Raymundo KRUEGER [facility] start: 09-30-2022 End: 25-17-9859Phliyhmjk to same day surgery [facility]-Digestive Health Work Phone: Start: 09-30-2022 End: 80-81-1031gqmdaqipskXPQ [facility] Work Phone: Start: 08-31-2022 End: 13-37-6063xdjpaqwcpcYECSouthern [facility] Work Phone: Start: 08-31-2022 End: 02-19-1573Uqjgafz encounter procedureC[facility] [place] Work Phone: Start: 08-13-2022 End: 68-28-1181fmrtytchlnKBB [facility] Work Phone: Start: 08-13-2022 End: 53-20-9584Duslkwva ReferredC[facility] Clinic [facility]-Lab Main [place] Work Phone: Start: 08-11-2022 End: 37-19-2627Wnr-admission assessmentFetisha Pace [facility] Start: 93-98-0967Efseqrwix for preprocedural laboratory examinationDR ANAND KRUEGER .[facility] Centertart: 08-07-2022 End: 31-36-2417mhpluifuqnLP ANAND KRUEGER .Facility:Z1Rgsok: 08-07-2022 End: 30-01-3549Ydabznxxu for preprocedural laboratory examinationDR ANAND KRUEGER .Facility:V9Czmrm: 07-29-2022 End: 45-06-4929dqcfbcwuxdXJ ANAND KRUEGER .Facility:E0Fixkk: 07-27-2022 End: 63-42-8883jupggrrylgXZE STAFFCleveland Clinic Lutheran Hospital Ctr Work Phone: Start: 07-27-2022 End: 50-40-3473Cmlecgv encounter procedureC[facility]-MRI Main [place] Work Phone: Start: 07-08-2022 End: 60-27-2727vikqeumiboUJR KAMILLA AICHHOLZFacility:Y8Dmrud: 92-74-5318Otaoqvztv for preprocedural cardiovascular examinationDR ANAND KRUEGER .[facility] Hospitaltart: 55-15-7314Enjvtjpii for preprocedural laboratory examinationDR ANAND KRUEGER .[facility] Hospitaltart: 07-02-2022 End: 77-21-5759vlifpdfrcbUI ANAND KRUEGER .Facility:K2Jspvn: 06-29-2022 End: 53-33-6328ujkxtzhoplWP ANAND KRUEGER .Facility:B8Jqdlo: 06-29-2022 End: 44-60-9769Gzhalvwhl for preprocedural cardiovascular examinationDR ANAND KRUEGER .Facility:M6Erbne: 06-20-2022 End: 13-01-3315rkbtdteiebSU ANAND KRUEGER .Facility:S4Dtild: 06-16-2022 End: 22-13-7516uxphjsatiyURR KAMILLA AICHHOLZFacility:D2Tescq: 06-03-2022 End: 87-25-9826dvfxqpaktyIKW KAMILLA AICHHOLZFacility:N7Nwjyy: 05-23-2022 End: 26-81-5270neeqxwqmbfOFU KAMILLA AICHHOLZFacility:N2Bmycc: 12-22-2021 End: 74-68-4181izmifvedgcAPSUIT H FAWWADFacility:F6Kjhli: 08-15-2021 End: 15-08-8979Jjsbdjinx to same day surgery centerDO Luis M Juarez Work Phone: [facility]-Digestive HealthStart: 08-13-2021 End: 57-21-0769Msehpyd encounter procedureDO Luis M Juarez Work Phone: [facility] Ihk-Tmm-Eeenqwri Testing Procedures DateProcedureProcedure DetailPerforming ClinicianStart: 88-22-2915QZM HEMOGLOBIN J5OEbkm Aichholz PASSENGER ELEVATOR OPERATOR Work Phone: Start: 43-96-0191ZL of soft tissues of neck with contrastLisa Aichholz Work Phone: Start: 30-70-9390HPM CBC WITH AUTO DIFFLisa Aichholz PASSENGER ELEVATOR OPERATOR Work Phone: Start: 24-76-7704YzkiuvkqtvqHjsk Aichholz PASSENGER ELEVATOR OPERATOR Work Phone: Start: 79-13-7671LS TOMOSYNTHESIS SCREENING BILisa Aichholz PASSENGER ELEVATOR OPERATOR Work Phone: Start: 00-72-0376RZ ABDOMEN 1VGeneric External Data ProviderStart: 73-17-7958GjhnawigbxlhavgrmrohfzdbtmOlpol: 37-79-8816Hhmybhrqqviy gastric emptying studyStart: 13-69-4664Nxxuo cystoscopyPatrick KRUEGER Start: 96-12-2448DEL of headStart: 07-02-2022 Extracorporeal shockwave lithotripsy of calculus of kidneyPatrick PATI Start: 54-81-9480HzojfysvdfaDarrzxn Clarke DPM Work Phone: Start: 39-53-0396OdnvcmiwmawvhpducqmkraqoeaML Luis M Juarez Work Phone: Start: 39-31-8142UnnvldddyliHlzegga Clarke DPM Work Phone: Start: 70-62-6783Hntfrufwjmv observation [Identifier] in Cervix by Cyto stainZonia Chambers DPM Work Phone: Start: 31-95-8839Kclte 1996 panel - Serum or Plasma Mendez Lund MD Work Phone: CholecystectomyFelicia Sanjeev H/O: surgeryHx of ovarian cystectomyLisa Abdi WOLFC Work Phone: HysterectomyFelicia Raisanagel Plan of Treatment DateCare ActivityDetailAuthorStart: 76-27-2101Vgbtkkaor for malignant neoplasm of colonNOMS HealthcareStart: 06-05-2826Frenietov for malignant neoplasm of breastMammogramNOMS HealthcareStart: 12-04-2024 End: 95-64-8726Gawqxdr encounter jgacrhoxx28/22/2025 5:30 PM EDT Office Visit [facility] [address] [place] [address] Kamilla Patton, KAYLAH [address] [place] [id number] [facility] FMStart: 35-21-9331Zdyodjdfw vaccinationNOMS HealthcareStart: 11-06-2024 End: 20-26-1132Vusilfv encounter oqmskivpi03/25/2025 6:30 PM EDT Office Visit [facility] [address] [place] [address] Kamilla Patton, KAYLAH [address] [place] [id number] [facility] FMStart: 09-26-2024 End: 80-78-2646CZW 12 leadECG 12 lead ECG Routine Chest pain in adult Expected: 09/26/2024 (Approximate), Expires: 09/26/2025[facility] HealthcareComment on above: Expected: 09/26/2024 (Approximate), Expires: 09/26/2025Start: 09-26-2024 End: 87-85-9480JW Chest 2 ViewsXR chest 2 views Imaging High Priority Chest pain in adult Expected: 09/26/2024, Expires: 09/26/2025[facility] Work Phone: Comment on above:Expected: 09/26/2024, Expires: 09/26/2025Start: 08-30-2024 End: 85-96-2866Fekdawa encounter procedureNOMS CWM FMComment on above:Pulmonary hypertension, unspecified (HCC) (Primary Dx); Gastro-esophageal reflux disease without esophagitis; Morbid (severe) obesity due to excess calories ([facility]-HCC)Start: 08-30-2024 End: 68-14-2583Dfuoj metabolic 1998 panel - Serum or PlasmaBasic metabolic panel Lab Routine Abnormal kidney function Expected: 08/30/2024 (Approximate), Expir es: 08/30/2025[facility] Work Phone: Comment on above:Expected: 08/30/2024 (Approximate), Expires: 08/30/2025Start: 08-30-2024 End: 29-23-2360Bvbvdwccyvbo/Creatinine panel in random UrineMicroalbumin / creatinine, urine ratio Lab Routine Abnormal kidney function Expected: 08/30/2024 (Approximate), Expires: 08/30/2025[facility] HealthcareComment on above: Expected: 08/30/2024 (Approximate), Expires: 08/30/2025Start: 08-30-2024 End: 43-17-7353Mclzfkcuqf complete panel - UrineUrinalysis with reflex microscopic (clean catch) Lab Routine Abnormal kidney function Expected: 08/13 (Approximate), Expires: 08/30/2025[facility] HealthcareComment on above: Expected: 08/30/2024 (Approximate), Expires: 08/30/2025Start: 06-06-2024 End: 35-53-5930Ftzjqaj encounter orjtkjdod27/25/2025 4:20 PM EDT Office Visit [facility]STA CARRILL[facility] [address] [place] [address] Lina Conner PA [address] [place] [address] [facility] SANDERSONtart: 82-52-8489Jsjih panelLipid ScreeningBlanchard Valley Health [facility] Start: 84-32-1661Ryrgnaokd vaccinationInfluenza Vaccine (#1)[facility] Comment on above:Postponed from 11/14/2023 (Patient Refused)Start: 05-03-2024 End: 26-51-3632Fktgg metabolic 1998 panel - Serum or PlasmaBasic metabolic panel Lab Routine Abnormal kidney function Expected: 05/03/2024 (Approximate), Expir es: 04/19/2025[facility] Work Phone: Comment on above:Expected: 05/03/2024 (Approximate), Expires: 04/19/2025Start: 05-03-2024 End: 48-11-2291Sgrixdvylp A1c/Hemoglobin.total in BloodHemoglobin A1c Lab Routine Hyperglycemia Expected: 05/03/2024 (Approximate), Expires: 04/19/2025 [facility] Work Phone: Comment on above:Expected: 05/03/2024 (Approximate), Expires: 04/19/2025Start: 04-24-2024 End: 48-62-6015Rgzgvvw encounter procedureNOMS PCF NEUROLOGYStart: 03-29-2024 End: 54-34-2862Seghizt encounter procedureNOMS CWM FMComment on above:Pulmonary hypertension, unspecified (CMS/HCC) (Primary Dx); Morbid (severe) obesity due to excess calories (CMS/HCC); Gastro-esophageal reflux disease without esophagitis; Body mass index (BMI) 35.0-35.9, adult; Encounter for annual wellness visitStart: 03-29-2024 End: 53-70-9608MQN W Auto Differential panel - BloodCBC and differential Lab Routine Encounter for annual wellness visit Expected: 03/29/2024 (Approximate), Expires: 03/29/2025[facility] HealthcareComment on above:Expected: 03/29/2024 (Approximate), Expires: 03/29/2025Start: 03-29-2024 End: 59-76-1560Dsrktddmwobgq metabolic 2000 panel - Serum or PlasmaComprehensive metabolic panel Lab Routine Encounter for annual wellness visit Expected: 03/29/2024 (Approximate), Expires: 03/29/2025[facility] HealthcareComment on above: Expected: 03/29/2024 (Approximate), Expires: 03/29/2025Start: 03-29-2024 End: 94-63-8529Xgzhq 1996 panel - Serum or PlasmaLipid panel Lab Routine Encounter for annual wellness visit Expected: 03/29/2024 (Approximate), Expires: 03/29/2025[facility] HealthcareComment on above:Expected: 03/29/2024 (Approximate), Expires: 03/29/2025Start: 03-29-2024 End: 07-20-0274Mbzlcrxjego [Units/volume] in Serum or PlasmaTSH Lab Routine Encounter for annual wellness visit Expected: 03/29/2024 (Approximate), Expires: 03/29/2025[facility] Work Phone: Comment on above:Expected: 03/29/2024 (Approximate), Expires: 03/29/2025Start: 03-29-2024 End: 61-78-2621Kyeswtiwlf complete panel - UrineUrinalysis with reflex microscopic (clean catch) Lab Routine Encounter for annual wellness visit Exp ected: 03/29/2024 (Approximate), Expires: 03/29/2025[facility] HealthcareComment on above:Expected: 03/29/2024 (Approximate), Expires: 03/29/2025Start: 01-13-2024 Influenza vaccinationInfluenza Vaccine (#1)[facility] HealthcareComment on above: Postponed from 11/14/2023 (Patient Does Not Have Time)Start: 12-27-2023 End: 99-04-8021Nlgorvl encounter procedureNOMS CWM FMComment on above:Pulmonary hypertension, unspecified (CMS/HCC)Start: 31-01-4456Ootgfnjnw vaccination Influenza Vaccine (#1)[facility] Hospitaltart: 61-53-3384Fwweprzsj for malignant neoplasm of breastMammogramNOMS HealthcareStart: 05-17-2023 End: 87-09-2045Xzrmkop encounter tnifhmtmt14/04/2024 7:00 PM EST Office Visit [facility] [address] [place] [address] Kamilla Patton, PASSENGER ELEVATOR OPERATOR [address] [place] [id number] [facility] FMStart: 04-29-2023 End: 50-18-4248Wtbpagf encounter xhijckowo40/15/2024 6:00 PM EST Office Visit [facility] [address] [place] [address] Kamilla Patton, PASSENGER ELEVATOR OPERATOR [address] [place] [address] [facility] FMStart: 94-97-2620Hgoezcntv for malignant neoplasm of cervixPap SmearSalem Memorial District HospitalStart: 52-34-5328Bsojm-19 Vaccine ( season)Covid-19 Vaccine ()[facility] Hospitaltart: 09-30-2022 [facility]: 44-47-6543AH Unspecified body region [facility]: 17-16-7341UVE of headMR head/brain wo/w [facility] Hospitaltart: 85-90-8552Mowhnfzq ScreeningDiabetes ScreeningWilson Memorial Hospitaltart: 41-81-3656Ahftmfwh Vaccine (1 of 2)Shingrix Vaccine (1 of 2)[facility]: 34-97-2336Barlrmlzf for malignant neoplasm of breastMammogram ScreeningWilson Memorial Hospitaltart: 96-40-2640Ilxdw microalbumin profileDTaP,Tdap,Td Vaccine (2 - Td or Tdap)[facility] Hospitaltart: 84-29-9082Gxerxhvvy for malignant neoplasm of colonWilson Memorial Hospitaltart: 39-21-8874Qkikrilvh for malignant neoplasm of cervixHPV/CotestNOMS Healthcare Start: 73-41-2763Bgiifdfvf for malignant neoplasm of cervixCervical Cancer ScreeningWilson Memorial Hospitaltart: 92-68-0253Xvngupjpy B Vaccine (1 of 3 - 19+ 3- dose series)Hepatitis B Vaccine (1 of 3 - 19+ 3-dose series)[facility] Start: 11-12-0603Elzrgoe ScreeningAnxiety ScreeningWilson Memorial Hospitaltart: 18-57-8249Pdjqrjfnrb ScreeningDepression ScreeningWilson Memorial Hospitaltart: 31-28-6207Llvdsnhhp C screeningHepatitis C ScreeningWilson Memorial Hospitaltart: 44-97-3746QBO screeningHIV ScreeningWilson Memorial Hospitaltart: 60-97-6259Dpgyhobdi for malignant neoplasm of colonNOMS HealthcareBilirubin measurementThe University Of Toledo Medical CenterBody weightThe University Of Toledo Medical CenterCalcium carbonate/Total in [facility] InstituteCalcium hydrogen phosphate dihydrate/Total in [facility] InstituteCalcium oxalate monohydrate/Total in [facility] InstituteCalcium phosphate levelThe University Of Toledo Medical CenterCalculus analysis with calculus photography [Interpretation] in [facility] Health InstituteCalculus analysis, qualitativeThe University Of Toledo Medical CenterCalculus analysis, quantitativeThe University Of Toledo Medical CenterCalculus analysis, quantitative, infrared spectroscopyThe University Of Toledo Medical CenterCellular material [Mass/mass] of Stone by EstimatedThe University Of Toledo Medical CenterCholesterol [Mass/volume] in Serum or PlasmaThe University Of Toledo Medical CenterCystine measurementThe University Of Toledo Medical CenterDetermination of calculus chemical compositionThe University Of Toledo Medical CenterEvaluation procedureThe University Of Toledo Medical CenterHydroxyapatite [Energy Difference] in 24 hour Urine [facility] CenterLaboratory data interpretationThe University Of Toledo Medical CenterNewberyite/Total in [facility] InstitutePatient EducationCleveland Clinic Lutheran Hospital Ctr Work Phone: Patient referralCleveland Clinic Lutheran Hospital Ctr Work Phone: Specimen source subject [Type][facility] Medical CenterTriamterene measurementThe University Of Toledo Medical CenterTriple phosphate/Total in [facility] Immunizations Immunization DateImmunizationNotesCare IgdtxqxtRipojurw4066eirnbrdyw virus vaccine, unspecified formulationZonia ANTONM Work Phone: NOSSM [facility] CenterAfrhiwkoxf79-90-8503xnalihbxr, unspecified formulationAuchapito Masseyzech [facility]07-28-2022SARS-CoV-2 mRNA (enbwrukwcgn-ilxj-mmnezjc) vaccineFelicia Windnagel [facility]12-02-2021COVID-19 mRNA, Comirnaty (Pfizer)DO Luis M Juarez Work Phone: [facility]02-24-2021COVID-19 mRNA, Comirnaty (Pfizer)DO Luis M Juarez Work Phone: [facility] Medical CenterComment on above: Result Comment: 2022-06-22: [id number]-PaP-0 (COVID-19) mRNA BNT-162b2 vaxFelicia Windnagel [facility] Private HospitalComment on above:Result Comment: 2022-06-22: [id number]-60 mRNA, Comirnaty (Pfizer)DO Luis M Juarez Work Phone: [facility] Medical CenterComment on above: Result Comment: 2022-06-22: [id number] toxoid, reduced diphtheria toxoid, and acellular pertussis vaccine, adsorbedFelicia Windnagel [facility] Payers DatePayer CategoryPayerPolicy [id number] Cross Blue ShieldBCBS Member Subscriber Plan / Payer (Effective 2022-Present) Name: Cinthia Badillo Relation to Subscriber: Spouse Name: KOBY BADILLO Date of : 1971 (Home) Address: [address] [place] [address] [place] [address] Payer ID: Not on file Type: Not on file Address: [facility] [address] [place] [address].2.840.512451.1.13.693.2.7.9.950030.019241.04392-35-6750Mocevnr 1.2.840.571602.1.13.693.2.7.3.470[id number] 2.16.840.1.065854.3.579.[id number] 2.16.840.1.771650.3.579.2.44780-29-2179Cyufbfq1962222 2.16.840.1.065931.3.579.[id number] 2.16.840.1.085029.3.57[id number] 2.16.840.1.471191.3.579.[id number] 2.16.840.1.748474.3.579.2.26385-49-0636Fsvcflk8095993 2.16.840.1.784675.3.579.2.74156-20-6640Hpcbvis8713512 2.16.840.1.672301.3.579.2.26612-55-8899Vpdnhpe9170524 2.16.840.1.509794.3.579.2.26360-71-4902Dyyvlrq5240634 2.16.840.1.887575.3.579.2.71996-41-4488Pyfupcj1792355 2.16.840.1.500452.3.579.[id number] 2.16.840.1.257196.3.579.2.685212-19-1552Pcyoqmk29531650 2.16.840.1.102912.3.579.2.891640-95-0629Ltroouu27264250 2.16.840.1.424787.3.579.2.076168-16-3269Szbmslk2272522 2.16.840.1.377508.3.579.2.178928-75-3904Dnpzdnj1417592 2..840.1.942937.3.579.2.295716-74-6845Zdhucru9479558 2..840.1.328308.3.579.2.338892-86-1971Kpojbql5373362 2.0.1.942357.3.579.2.098538-09-5609Toqjyut64700124 2.16.840.1.668311.3.579.2.53314-23-2229Fyqpdky45925819 2..840.1.676346.3.579.2.48167-93-5718Elmfhvl530132859 2..840.1.783225.3.579.2.96314-53-5604Tycjjod701889251 2.840.1.151255.3.579.2.84192-91-8265Snyimzs650128325 2..840.1.095874.3.579.2.30173-60-4343JwxwvuvXTD928A68562 49854330-3679-4p2g-7879-14u8435b9622Velqump74868510 2.16.840.1.569807.3.579.2.777Ypukadi85655947 2.16.840.1.541222.3.579.2.531 Social History DateTypeDetailFacilityTobacc smoking status NHISUnknown if ever smokedCleveland Clinic Work Phone: Start: 85-18-3457Hdq Assigned At [facility] Columbustart: 06-22-2022 End: 86-34-4012Zomfnia smoking statusNever smoked tobacco (finding)[facility] Hospitaltart: 57-77-9078Gnkbhwh smoking statusNeverExecutive Urology of [facility] Hospitaltart: 03-17-2023 End: 82-86-1378Jxu Assigned At [facility] Centertart: 27-06-2300Xoiwyjd use and exposureSmokeless tobacco non-userNOMS Healthcare Start: 04-20-2023 End: 25-82-1476Preqrau intakeEx-drinker (finding)[facility] HealthcareStart: 03-17-2023 End: 75-59-9447Vlrvoel intakeNOMS HealthcareWithin the last year, have you [...] got money to buy more.Never trueNOMS HealthcareStart: 62-19-5771Tlwwfnp CommentmonthlyNOMS HealthcareStart: 79-49-7524Gsqtcs identity Identifies as female gender (finding)[facility] HealthcareStart: 84-04-2607Pktkug orientationHeterosexual (finding)NOMCrittenton Behavioral HealthTobacco smoking status NHIS Tobacco smoking consumption unknownWilson Memorial Hospitaltart: 84-75-3576Qqs Assigned At BirthNot on fileWilson Memorial HospitalexFemale (finding)[facility] CenterNEGATED: Highlighted [facility] Goals DatePatient GoalDesired Activity/State Functional Status CwlaZhpzhxfyibLkdbvfWndcgdwk98-25-9306Cayzadrbjq StatusN/AExec[facility]10-16-2023Functional StatusN/AExec[facility] Clinical Notes 08-15-2021 to 12-29-2024 Note Date & BwywHkvkUtvogero49-51-0877 NoteHNO ID: [id number] Author: DINH COOL MD Service: ? Author [...] and Facial [facility] Date: December 29, 2024 Patient Name: Cinthia [...] QHS for (more content not included)...[facility] 10-17-2024 Evaluation note* Diagnosis Onset Date Resolution Status Admit Date Migraine acuteAugust 2024 10:42amSleep disturbanceacuteAugust 2024 10:42am Trigeminal neuralgiaacuteAugust 2024 10:42amGERD without esophagitisacute December 04, 2024 5:29pm [facility] Work Phone: 1(703) 548-118308-02-2025 Radiology Diagnostic study [facility] [place] [address] [place] [address] CT Scan Report Signed Patient: Cinthia Badillo MR#: [id number] : 1970 Acct:[id number] Age/Sex: 54 / F ADM Date: Loc: ER Room: Type: [facility] ER Attending Dr: Copies to: Rajinder Elliott [...] Gonzales M.D. 10/14/2024 4:15 PM Dictation Location: RADIO-PC-17 Transcribed By: [facility] 10/14/24 161 Dictated By: Mike Gonzales II, MD 10/14/24 1607 Signed By: 10/14/24 1615 [facility] Work Phone: 1(887) 317-685007-15-2025 History of Present illness Narrative* Kamilla Patton, KAYLAH - 09/26/2024 5:14 PM EDTAssociated Problem(s): Gastro-esophageal [...] po daily #6 samples (30 pills) lot [id number] exp 11/06 * Kamilla Patton NP - [...] not intractable, unspecified migraine type Palpitation Pancreatitis ([facility]) 2018 Paresthesia Pelvic pain S/P laparoscopy Thickened endometrium Trigeminal neuralgia Past Surgical History: Procedure Laterality Date APPENDECTOMY 1991 or CHOLECYSTECTOMY HERNIA REPAIR 1974 HYSTERECTOMY 2019 ovaries still present, non cancerous KNEE ARTHROSCOPY W/ DEBRIDEMENT Right 1990 x2, 2009 LITHOTRIPSY OVARY SURGERY 1991 Ovarian Resection - Emily family history includes Arthritis in her mother; [...] po daily #6 samples (30 pills) lot [id number] exp 11/06 Morbid (severe) obesity due to [...] juices, and sugary drinks. documented in this encounterSalem Memorial District HospitalEyluvpdxqv59-35-1112 Instructions* Patient Instructions* Kamilla Patton NP - 09/26/2024 4:00 PM EDT We will order cxr and EKG at [facility] Stop your current pantoprazole We will trial voquezna documented in this encounterSalem Memorial District HospitalZxvigndkat10-28-0069 History of Present illness Narrative* Kamilla Patton [...] not intractable, unspecified migraine type Palpitation Pancreatitis ([facility]) 2018 Paresthesia Pelvic pain S/P laparoscopy Thickened endometrium Trigeminal neuralgia Past Surgical History: Procedure Laterality Date APPENDECTOMY 1991 or CHOLECYSTECTOMY HERNIA REPAIR 1974 HYSTERECTOMY 2019 ovaries still present, non cancerous KNEE ARTHROSCOPY W/ DEBRIDEMENT Right 1990 x2, 2009 LITHOTRIPSY OVARY SURGERY 1991 Ovarian Resection - Emily family history includes Arthritis in her mother; [...] Primary As per ECHO on 06/2023 at [facility] No current symptoms Morbid (severe) obesity due to excess calories ([facility]) Discussed with patient their BMI (actual, verses [...] Morbid (severe) obesity due to excess calories ([facility]) Discussed with patient their BMI (actual, verses [...] (HCC) As per ECHO on 06/2023 at [facility] No current symptoms documented in this encounterSalem Memorial District HospitalDjdmifbuod39-55-2089 Instructions* Patient Instructions* Kamilla Patton NP - 08/30/2024 5:00 PM EDT Recheck kidney function and urine test Consider a change to Voquezna documented in this encounterSalem Memorial District HospitalNzfaxpsosl47-63-3700 History of Present illness Narrative* Kamilla Patton [...] Hospitalizations in the last year: 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: GI Concerns: Weight continues to go [...] History: Procedure Laterality Date APPENDECTOMY 1991 or 93 CHOLECYSTECTOMY HERNIA REPAIR 1974 HYSTERECTOMY 2019 ovaries still present, non cancerous KNEE ARTHROSCOPY W/ DEBRIDEMENT Right 1990 x2, 2009 LITHOTRIPSY OVARY SURGERY 1991 Ovarian Resection - Feli family history includes Arthritis in her mother; [...] (CMS/HCC) As per ECHO on 06/2023 at [facility] No current symptoms Morbid (severe) obesity [...] 08/13/24 with goal loss 15 pounds * aKmilla Patton NP - 03/29/2024 7:07 AM ESTAssociated [...] (CMS/HCC) As per ECHO on 06/2023 at [facility] No current symptoms documented in this encounterSalem Memorial District HospitalEmjvycejcg02-79-8836 Instructions* Patient Instructions* Kamilla Patton NP - 03/29/2024 6:00 PM EST No med changes Goal: start weight watchers 05/13/2024 Follow up in August with goal 200-205 documented in this [facility]11-05-2024 Hospital Discharge instructions Patient Education 01/18/2024 15:56:53 Kidney Stones, Niha-xr-Jqww Kidney Stones Kidney stones are rock-like masses [...] Follow these instructions at home: Medicines Take uhxx-gna-sgwdhhc and prescription medicines only as told by [...] provider. Document Revised: 10/23/2022 Document Reviewed: 10/23/2022 [employer] Patient Education 2023 [employer] 01/18/2024 15:56:52 Dietary Guidelines to Help Prevent [...] include: ?8 oz (237 mL) of milk, psexjck-ntwzpiewexgg-tmyfw milk, and calcium- fortifiedfruit juice. Calcium-fortified means [...] ?Spinach (cooked), rhubarb, beets, sweet potatoes, and Marshallese chard. ?Peanuts. ?Potato chips, armenian fries, and baked potatoes with skin on. ?Nuts and nut products. ?Chocolate. If you regularly take a diuretic medicine, make sure to eat at least 1 or 2 servings of fruits or vegetables that are high in potassium each day. These include: ?Avocado. ?Banana. ?Madison, prune, carrot, or tomato juice. ?Baked potato. [...] magnesium, fish oil, or vitamin B6. Take hdsv-dol-tyzhxug and prescription medicines only as told by [...] Casseroles. Pizza. Lasagna. Frozen meals. Potato chips. Tanzanian fries. The items listed above may not [...] provider. Document Revised: 06/11/2022 Document Reviewed: 06/11/2022 Else[employer] Patient Education 2023 [employer]. Follow Up Care 12/28/2022 16:08:34 With:GENNA Carias APRN, VIET Viera URL Address:Unknown When: Unknown [facility] [place] 11-05-2024 NotePatient Education Nephrology Dietary Guidelines to [...] ? 8 oz (237 mL) of milk, mlbzmjx-wwwlnmsojewb-otjfm milk, and calcium- fortifiedfruit juice. Calcium-fortified means [...] Spinach (cooked), rhubarb, beets, sweet potatoes, and Marshallese chard. ? Peanuts. ? Potato chips, armenian fries, and baked potatoes with skin on. ? Nuts and nut products. ? Chocolate. ??? If you regularly take a diuretic medicine, make sure to eat at least 1 or 2 servings of fruits or vegetables that are high in potassium each day. These include: ? Avocado. ? Banana. ? Madison, prune, carrot, or tomato juice. ? Baked [...] fish oil, or vitamin B6. ??? Take ngmz-mrn-vhnowxh and prescription medicines only as told by your health (more content not included)...[facility]10-14-2024 History of Present illness Narrative* Kamilla Patton NP - 12/27/2023 7:06 PM EDTAssociated Problem(s): Obesity [...] LITHOTRIPSY OVARY SURGERY 1991 Ovarian Resection - Emily family history includes Arthritis in her mother; [...] (CMS/HCC) Per echo reads documented in this encounterSalem Memorial District HospitalHktmwwztbi94-36-9994 History of Present illness Narrative* Mohsen Pace [...] Review Audit Reviewed by Avery Harvey MA (Protective Signal Repairer) on 11/10/23 at 1558 Medication Order Taking? Sig Documenting Provider Last Dose Status amitriptyline (Elavil) 50 MG tablet [id number] Yes Take 50 mg by mouth at bedtime Kamilla Patton NP Taking Active famotidine (Pepcid) 20 MG tablet [id number] Take 1 tablet (20 mg) by mouth at bedtime Kamilla Patton NP 10/20/23 2359 pantoprazole (ProtoNix) 40 MG EC tablet [id number] Yes Take 1 tablet (40 mg) by mouth in the morning and 1 tablet (40 mg) before bedtime. Take 40 mg by mouth in the morning and 40 mg before bedtime.. Kamilla Patton NP Taking Active zonisamide (Zonegran) 25 MG capsule [id number] Yes TAKE 1 CAPSULE BY MOUTH TWICE DAILY WITH 50 MG CAPS TO EQUAL 75 MG Mohsen Pace NP Taking Active zonisamide (Zonegran) 50 MG capsule [id number] Yes Take 1 capsule (50 mg) by mouth in the morning and1 capsule (50 mg) before bedtime. Mohsen Pace NP Taking Active HPI HPI TRIGEMINAL NEURALGIA -medication [...] in upper and lower extremities. Coordination Right: Xfgfih-gb-blum normal. Rapid alternating movement normal.Left: Ksbrae-ax-kkyl normal. Rapid alternating movement normal. Gait Casual gait is normal including stance, stride, and arm swing. Motor Examination RUE Strength deltoid, biceps, triceps, wrist extensors, wrist extensors, wrist flexor, community service organization director strength 5/5. LUE Strength deltoid, biceps, triceps, wrist extensors, wrist extensors, wrist flexor, community service organization director strength 5/5. RLE Strength illopsoas, quadriceps, tibialis [...] 3. EMG of bilateral upper extremities in 2011 was normal 4. QSART in 2013 was [...] concerning 8. MRI of cervical spine in 2012 was [...] or sooner if needed documented in this encounterSalem Memorial District HospitalZjatuwmekn18-59-8037 Instructions* Patient Instructions* Mendez Lund MD - 10/22/2023 3:30 PM EDT Stop pantoprazole and famotidine. Start esomeprazole 40mg twice daily - Take 30 min before breakfast and dinner 2. Return to clinic in 3 months. You can call [phone] to schedule documented in this encounterBlanchard Valley [facility]08-[facility] History of Present illness Narrative* Mendez Lund MD - 10/22/2023 3:05 PM EDT NEW VIRTUAL CONSULT I had a virtual consult with Ms. Arbyrd today. Her local doctors have given her a diagnosis of GERD. This consult was requested by Dr Patton for an opinion regarding GERD , and my final recommendations will be communicated to the requesting health care provider by way of the shared medical record for internal providers or letter via the [employer] for external providers. I have [...] PPI Mendez Lund MD documented in this encounterBlanchard Valley Health [facility]02-06-2024 History of Present illness Narrative* Zonia Michael Chambers, DPM - 04/20/2023 3:45 PM EST [...] non cancerous KNEE ARTHROSCOPY W/ DEBRIDEMENT Right 1991 x2, 2010 OVARY SURGERY 1991 Ovarian Resection - Emily Family History Family History Problem Relation Name [...] understanding. Zonia Chambers DPM documented in this encounterSalem Memorial District HospitalLkqbwvivbj76-71-2674 Hospital Discharge instructions Patient Education 12/28/2022 16:01:02 [...] include: ?8 oz (237 mL) of milk, nkkkupj-tglkdkmerrcl-pfnqf milk, and calcium- fortifiedfruit juice. Calcium-fortified means [...] ?Spinach (cooked), rhubarb, beets, sweet potatoes, and Marshallese chard. ?Peanuts. ?Potato chips, armenian fries, and baked potatoes with skin on. ?Nuts and nut products. ?Chocolate. If you regularly take a diuretic medicine, make sure to eat at least 1 or 2 servings of fruits or vegetables that are high in potassium each day. These include: ?Avocado. ?Banana. ?[place], prune, carrot, or tomato juice. ?Baked potato. [...] magnesium, fish oil, or vitamin B6. Take ogpj-ntt-zgwdsvh and prescription medicines only as told by [...] Casseroles. Pizza. Lasagna. Frozen meals. Potato chips. Tanzanian fries. The items listed above may not [...] provider. Document Revised: 11/10/2021 Document Reviewed: 11/10/2021 [employer] Patient Education 2022 [employer]. Follow Up Care 07/07/2022 08:32:51 With:PATI DOHERTY, Anand Fonseca, URL Address: [facility] [address] [place] [address]- When:Within 1 Year(s) Comments:w/SERGIO [facility] [place] 07-19-2023 [facility] History and physical note Author Luis M Juarez [facility] August 15, 2021 8:25amNote Date/TimeJun2021 8:[address] [address] Gastroenterology H&P Signed Patient: Cinthia Badillo MR#: [id number] : 1970 Acct:[id number] Age/Sex: 51 / F Adm Date: 2 Loc: Room: Type: [facility] Attending Dr: Luis M Juarez DO [...] Juarez Jr, DO> 08/15/21 0825 [facility] Work Phone: [phone] 447-199206-03-2022 Procedure noteThe [facility] CenterEvaluation + Plan note Future Appointments Appointment Date:12/28/2022 02:45:00 PM Scheduled Provider:Anand KRUEGER MD Location:[facility] Appointment Type:URO [facility] Future Appointments Appointment Date:01/07/2024 08:00:00 AM Scheduled Provider:Anand KRUEGER MD Location:[facility] Appointment Type:URO Office Visit [facility] evaluation note* Diagnosis Onset Date Resolution Status GERD (gastroesophageal reflux disease) acuteScreening for colorectal canceracute [facility] Work Phone: Evaluation noteNo assessment information available [facility] Work Phone: Evaluation note* Diagnosis Onychomycosis- Primary Dermatophytosis of nail Nail dystrophy Other specified disease of nail Pain in toes of both feet documented in this encounter [facility]* Diagnosis Gastroesophageal reflux disease without esophagitis Esophageal reflux documented in this encounter [facility] Healthcare[facility] note* Diagnosis Onset Date Resolution Status GERD (gastroesophageal reflux disease) acute [facility] Work Phone: Evaluation note* Diagnosis Gastroesophageal reflux disease, unspecified whether esophagitis present- Primary [facility] Diagnosis Gastroesophageal reflux disease without esophagitis- [...] Obesity (BMI 30-39.9) documented in this encounter [facility] HealthcareEvaluation note* Diagnosis Gastroesophageal reflux [...] esophagitis Esophageal reflux documented in this encounter [facility] Healthcare[facility] note* Diagnosis Trigeminal neuralgia (CMS/HCC) Trigeminal neuralgia Nonintractable headache, unspecified chronicity pattern, unspecified headache type documented in this encounter [facility] HealthcareEvaluation note* Diagnosis Gastroesophageal reflux [...] esophagitis Esophageal reflux documented in this encounter [facility] HealthcareEvaluation note* Diagnosis Gastroesophageal reflux [...] Other abnormal glucose documented in this encounter [facility] HealthcareEvaluation note* Diagnosis Gastroesophageal reflux [...] kidney function study documented in this encounter [facility] HealthcareEvaluation note* Diagnosis Gastroesophageal reflux [...] kidney function study documented in this encounter [facility] HealthcareEvaluation note* Diagnosis Gastroesophageal reflux [...] disease without esophagitis documented in this encounter [facility] Healthcare[facility] note* Diagnosis Onset Date Resolution Status Admit Date Migraine acuteAugust 2024 10:42amSleep disturbanceacuteAugust 2024 10:42am Trigeminal neuralgiaacuteAugust 2024 10:42am [facility] Work Phone: History and physical note Author Juani Blackwell [facility] September 30, 2022 8:25amNote Date/TimeJuly 2022 8:[place] [address] Gastroenterology H&P Signed Patient: Cinthia Badillo MR#: [id number] : 1970 Acct:[id number] Age/Sex: 52 / F Adm Date: 3 Loc: Room: Type: [facility] Attending Dr: Juani Blackwell MD Copies to: MD Kamilla Chin NP-Hema~ Date of Service: 09/30/2022 HISTORY & PHYSICAL: [...] Blackwell M.D. Documented By: Juani Blackwell MD 09/30/2224 Signed By: <Electronically signed by Juani Blackwell MD> 09/30/22824 [facility] Work Phone: Hospital course Narrative No data available for this section [facility] Discharge instructions No data available for this section [facility] Discharge instructions Additional Instructions DISCHARGE INSTRUCTIONS [...] problems. -Follow up with PCP. -Office number [phone]. [facility] Work Phone: Hospital Discharge instructions Additional Instructions Rest. Push fluids. Take your current medications as prescribed. Take the Toradol 10 mg by mouth twice a day for 5 days. Follow-up with neurology as scheduled. Return here if symptoms persist or worsen.[facility] Work Phone: Hospital Discharge instructions Additional Instructions If she states she developed worsening pain swelling redness or fevers do not hesitate to return otherwise follow-up with your medical care [facility] Work Phone: Progress note No data available for this section [facility] Center[facility] for referral (narrative)No reason for referral information availableCleveland Clinic Work Phone: Chief Complaint and Reason for [...] Time Advance Directives No August 08 10:47am Advance Directive Response Recorded Date/ Time [...] Dates NON STAFF Primary Care Provider Active Kb Flores ProviderActive Team Status: Inactive Member Role Status [...] Date Nishant Aguilar MD [address] [place] [address] [facility] Jyonmveq20/27/23 Kamilla Patton NP [address] [place] [address] Nurse PractitionerN[facility] Rgtbrdrq18/27/23Team MemberRelationshipSpecialtyStart DateEnd Date Nishant Aguilar MD [address] [place] [address] [facility] - [facility] Xtntvvgr59/27/23 Kamilla Patton NP [address] [place] [address] [facility]03/10/23 Team Status: Inactive Member Role Status Dates Kamilla Patton Primary Care Provider Active Sta rt: July 07, 2023 End: July 07, 2023Imad Asaad , MDAttending ProviderActiveStart: July 07, 2023 End: July 07, 2023Team MemberRelationshipSpecialtyStart DateEnd Date Kamilla Patton Referring09/27/23Team MemberRelationshipSpecialtyStart DateEnd Date Nishant Aguilar MD [address] [place] [address] PCP - GeneralFamily Medicine05/17/23 Kamilla Patton NP [address] [place] [address] Nurse PractitionerGreat[facility] Healthly Fjomstdk66/27/23 Jerica Zhu MD [address] [place] [address] Referring PhysicianNeurology06/23/23Team MemberRelationshipSpecialtyStart DateEnd Date Nishant Aguilar MD [address] [place] [address] [facility] - [facility] Medicine05/17/23 Kamilla Patton NP [address] [place] [address] Nurse PractitionerFamily Lkoqkcbi72/27/23 Jerica Zhu MD [address] [address] Referring PhysicianNeurology06/23/23Team MemberRelationshipSpecialtyStart DateEnd Date Nishant Aguilar MD [address] [place] [address] PCP - GeneralFamily Medicine05/17/23 Kamilla Patton NP [address] [place] [address] Nurse PractitionerFamily Buzcnjzf09/27/23 Jerica Zhu MD [address] [address] Referring PhysicianNeurology06/23/23Team MemberRelationshipSpecialtyStart DateEnd Date Nishant Aguilar MD [address] [place] [address] PCP - GeneralFamily Medicine05/17/23 Kamilla Patton NP [address] [place] [address] Nurse PractitionerFamily Ertdftmh71/27/23 Jerica Zhu MD [address] [place] [address] Referring PhysicianNeurology06/23/23Team MemberRelationshipSpecialtyStart DateEnd Date Nishant Aguilar MD [address] [place] [address] PCP - GeneralFamily Medicine05/17/23 Kamilla Patton NP [address] [place] [address] Nurse PractitionerFamily Ibhvisse69/27/23 Jerica Zhu MD [address] [place] [address] Referring PhysicianNeurology06/23/23Team MemberRelationshipSpecialtyStart DateEnd Date Nishant Aguilar MD [address] [place] [address] PCP - GeneralFamily Medicine05/17/23 Kamilla Patton NP [address] [place] [address] Nurse PractitionerFamily Bibntdtk98/27/23 Jerica Zhu MD [address] [place] [address] Referring PhysicianNeurology06/23/23Team MemberRelationshipSpecialtyStart DateEnd Date Nishant Aguilar MD [address] [place] [address] PCP - GeneralFamily Medicine05/17/23 Kamilla Patton NP [address] [place] [address] Nurse PractitionerFamily Ywosqjgc25/27/23 Jerica Zhu MD [address] [address] Referring PhysicianNeurology06/23/23Team MemberRelationshipSpecialtyStart DateEnd Date Nishant Aguilar MD [address] [place] [address] PCP - GeneralFamily Medicine05/17/23 Kamilla Patton NP [address] [place] [address] Nurse PractitionerFamily Yxblnjcr62/27/23 Jerica Zhu MD [address] [address] Referring PhysicianNeurology06/23/23Team MemberRelationshipSpecialtyStart DateEnd Date Nishant Aguilar MD [address] [place] [address] PCP - GeneralFamily Medicine05/17/23 Kamilla Patton NP [address] [place] [address] Nurse PractitionerGreat[facility] Healthly Xfnbakqt18/27/23 Jerica Zhu MD [address] [place] [address] Referring PhysicianNeurology06/23/23 Lina Conner PA [address] [place] [address] Physician AssistantNeurology06/06/24Team MemberRelationshipSpecialtyStart DateEnd Date Nishant Aguilar MD [address] [place] [address] PCP - GeneralFamily Medicine05/17/23 Kamilla Patton NP [address] [place] [address] [facility] Wmtyrvel58/27/23 Jerica Zhu MD [address] [place] [address] Referring PhysicianNeurology06/23/23 Lina Conner PA [address] [place] [address] Physician AssistantNeurology06/06/24Team MemberRelationshipSpecialtyStart DateEnd Date Nishant Aguilar MD [address] [place] [address] PCP - [facility]05/17/23 Kamilla Patton NP [address] [place] [address] Nurse Pract[facility]03/10/23 Jerica Zhu MD [address] [place] [address] Referring PhysicianNeurology06/23/23 Lina Conner PA [address] [place] [address] Physician AssistantNeurology06/06/24Te MemberRelationshipSpecialtyStart DateEnd Date Nishant Aguilar MD [address] [place] [address] PCP - [facility]05/17/23 Kamilla Patton NP [address] [place] [address] Nurse Pract[facility]03/10/23 Jerica Zhu MD [address] [place] [address] Referring PhysicianNeurology06/23/23 Lina Conner PA [address] [place] [address] Physician AssistantNeurology06/06/24 Team Status: Inactive Member Role Status Dates Kamilla Patton Primary Care Provider Active Sta rt: October 12, 2024 End: October 12Markos Davila ProviderActiveStart: October 12, 2024 End: October 12, 2024 Team Status: Inactive Member Role Status Dates Kamilla Patton Primary Care Provider Active Sta rt: October 14, 2024 End: October 14, 2024NiDiana Caputo ProviderActiveStart: October 14, 2024 End: October 14, 2024 Team Status: Inactive Member Role Status Dates Kamilla Patton Primary Care Provider Active Sta rt: October 17, 2024 End: October 17Cecy Ruiz ProviderActiveStart: October 17, 2024 End: October 17, 2024Team MemberRelationshipSpecialtyStart DateEnd Date Nishant Aguilar MD [address] [place] [address] [facility] - [facility] Medicine05/17/23 Kamilla Patton NP [address] [place] [address] Nurse PractitionerN[facility] Lsajmmnk55/27/23 Jerica Zhu MD [address] [place] [address] Referring PhysicianNeurology06/23/23 Lina Conner PA [address] [place] [address] Physician AssistantNeurology06/06/24 Team Status: Active Member Role Status Dates Kamilla Patton , PASSENGER ELEVATOR OPERATOR-C Primary Care Provider Active Team Status: Inactive Member Role Status Dates Kamilla Patton , PASSENGER ELEVATOR OPERATOR-C Primary Care Provider Active Start: October 12, 2024 End: October 12mandfili Jackson APRNEmergency ProviderActiveStart: October 12, 2024 End: October 12, 2024 Team Status: Inactive Member Role Status Dates Kamilla Patton , PASSENGER ELEVATOR OPERATOR-C Primary Care Provider Active Start: October 14, 2024 End: October 14, 2024Nidal N Lexi , DOEmergency ProviderActiveStart: October 14, 2024 End: October 14, 2024 Team Status: Inactive Member Role Status Dates Kamilla Patton , PASSENGER ELEVATOR OPERATOR-C Primary Care Provider Active Start: October 17, 2024 End: October 17ngbishop Mcclain APRNAttending ProviderActiveStart: October 17, 2024 End: October 17, 2024 Team Status: Inactive Member Role Status Dates Kamilla Patton , PASSENGER ELEVATOR OPERATOR-C Primary Care Provider Active Start: December 04, 2024 End: December 04, 2024Kamilla Patton , PASSENGER ELEVATOR OPERATOR-CAttending ProviderActiveStart: December 04, 2024 End: December 04, 2024Team MemberRelationshipSpecialtyStart DateEnd Date Nishant Aguilar MD [facility] - [facility]Fa[facility] Medicine05/17/23 Kamilla Patton NP [address] [place] [address] PCP - [place] Csflrfvjje04/1/244 Kamilla Patton NP Nurse PractitionerFamily Gkshjmei32/27/23 Jerica Zhu MD Referring PhysicianNeurology06/23/23 Lina Conner PA [address] [place] [address] Physician AssistantNeurology06/06/24 Goals (unrecognized section and content) Goals may [...] section and content) DATE CREATED AUTHOR 08/24/2022 [facility] DATE CREATED AUTHOR AUTHOR'S ORGANIZ ATION 04/18/2023 [facility] DATE CREATED AUTHOR AUTHOR'S ORGANIZ ATION 09/30/2024 [facility] DATE CREATED AUTHOR AUTHOR'S ORGANIZ ATION 10/27/2024 [facility] DATE CREATED AUTHOR AUTHOR'S ORGANIZ ATION 12/31/2024 [facility] DATE CREATED AUTHOR AUTHOR'S ORGANIZ ATION 01/12/2025 [facility] DATE CREATED AUTHOR AUTHOR'S ORGANIZ ATION 01/23/2025 [facility] Reason for Visit (unrecogniz ed section and content) ReasonCommentsFollow-upEstablished pt presents today for 4 month lamisil fuv. Pt states she hasn't noticed much of a difference in her nails. Used topical medication as well.ReasonCommentsGERDSpecialtyDiagnoses / ProceduresReferred By ContactReferred To ContactGastroenterology Diagnoses Gastroesophageal reflux disease without esophagitis Procedures OFFICE/OUTPATIENT [facility] 60 MINUTES AMB REFERRAL TO GASTROENTEROLOGY Kamilla Patton, DIESEL FLEET MECHANIC [address] [place] [address] Mendez Lund MD [address] [place] [address] Referral IDStatusReasonStart DateExpiration DateVisits RequestedVisits [id number] [facility]/[id number]lzsjpqos NeuralgiaNumbnessReasonCommentsGastroesophageal reflux disease without esophagitisReasonCommentsGERDReasonCommentsBreast Pain Source Comments (unrecognize d section and content) In the event this informatio n is protected by the Federal Confidentiality of Alcohol and Drug Abuse Patient Records regulations: The Federal rules restrict any use of the information to criminally investigate or prosecute any alcohol or drug abuse patient.[facility] FOR RECORDS PERTAINING TO PATIENTS WHO [...] BE BASED ON THE PRIMARY CLINICAL RECORDS. [employer] provides no warranty or guarantee of the accuracy or completeness of information in this document.
== END 2025-01-30 16:31 | disposition home or self-care (01) ==
LOC: LAB 16:31 → RAD 16:32
PROVIDERS: PCP Nurse Practitioner; Visit Provider Nurse Practitioner Family
DX: N20.0 Calculus of kidney (principal)
CPT/HCPCS: 74018